=== PATIENT | male | born 1945 | race Two or more races ===

== ENCOUNTER 2020-09-21 14:08 | Outpatient (REF) | payer MEDICARE, SELFPAY ==
[2020-09-21 14:41] LABS: MANUAL DIFF FLAG NO
[2020-09-21 14:43] LABS: Basophils Percent Auto 0.5 % (0-2); Eosinophils Absolute Auto 0.1 X10*3/uL (0.0-0.4); Eosinophils Percent Auto 0.7 % (0-4); Hematocrit 38.3 % (42-52); Hemoglobin 12.9 g/dl (14.0-18.0); Imm Gran Abs Auto 0.02 X10*3/uL (0.00-0.03); Imm Gran Pct Auto 0.2 % (0.0-0.4); Lymphocytes Absolute Auto 1.5 X10*3/uL (1.2-4.9); Lymphocytes Percent Auto 18.6 % (20-40); Mean Corpuscular HGB Conc 33.7 g/dl (31.0-36.0); Mean Corpuscular Hemoglobin 27.3 pg (27.0-33.0); Monocytes Absolute Auto 0.6 X10*3/uL (0.1-1.2); Monocytes Percent Auto 6.6 % (2-11); Neutrophils Absolute Auto 6.1 X10*3/uL (2.0-8.3); Neutrophils Percent Auto 73.4 % (45-73); Platelet Count 260 X10*3/uL (160-400); Red Blood Count 4.73 X10*6/uL (4.60-5.80); Red Cell Distribution Width 15.5 % (11.0-16.0); White Blood Count 8.3 X10*3/uL (4.8-10.8)
[2020-09-21 15:18] LABS: Blood Urea Nitrogen 14 mg/dL (9-16); Estimated Glomerular Filt Rate > 60
[2020-09-21 15:21] LABS: Iron 100 mcg/dL (45-160); Percent Iron Saturation 32 % (15-50); Total Iron Binding Capacity 313 mcg/dL (228-428); Unsaturated Iron Binding 213 ug/dL
[2020-09-21 15:41] LABS: Ferritin 47 ng/mL (20-250)
[2020-09-21 15:57] LABS: Folate 13.7 ng/mL (> or = 4.0); Vitamin B12 918 pg/mL (200-900)
== END 2020-09-21 14:09 | disposition home or self-care (01) ==
LOC: HO.LAB 14:08
PROVIDERS: Visit Provider Internal Medicine
DX: D50.9 Iron deficiency anemia, unspecified (principal); E11.65 Type 2 diabetes mellitus with hyperglycemia; I10 Essential (primary) hypertension; N40.0 Benign prostatic hyperplasia without lower urinary tract symptoms; I25.10 Atherosclerotic heart disease of native coronary artery without angina pectoris; K21.9 Gastro-esophageal reflux disease without esophagitis; M25.531 Pain in right wrist
CPT/HCPCS: 36415; 82565; 82607; 82728; 82746; 83540; 84520; 85025; 86900; 86901

== ENCOUNTER 2020-09-27 14:05 | Outpatient (REF) | payer MEDICARE, SELFPAY | END 2020-09-27 14:06 | disposition home or self-care (01) | LOC: HO.LAB 14:05 | PROVIDERS: PCP Internal Medicine; Visit Provider Internal Medicine | DX: Z20.828 Contact with and (suspected) exposure to other viral communicable diseases (principal) | CPT/HCPCS: C9803; U0003 ==

== ENCOUNTER 2020-10-16 13:41 | Outpatient (REF) | payer MEDICARE, SELFPAY ==
--- NOTE | 2020-10-16 13:43 | CT_ITS ---
EXAMINATION: CT ABDOMEN AND PELVIS WITH CONTRAST CLINICAL INFORMATION: Lower abdominal pain. COMPARISON: None TECHNIQUE: Multidetector volumetric images were obtained from the superior aspect of the liver through the pubic symphysis following administration 85 mL of Omnipaque 350 intravenous contrast. Sagittal and coronal reformatted images were obtained on the technologist's workstation. Oral contrast: No This CT examination was performed using dose optimization techniques as appropriate, variously including the following: *Automated exposure control *Adjustment of mA and/or kV according to patient size (this includes techniques or standardized protocols for targeted exams where dose is matched to indication/reason for exam; i.e. extremities or head) *Use of iterative reconstruction technique DLP: 351 mGy-cm FINDINGS: LUNG BASES: The visualized lung bases are unremarkable. Heart size is normal with coronary artery calcifications. LIVER, GALLBLADDER, AND BILIARY TREE: The liver is normal in size, shape, and attenuation. No focal hepatic lesion or biliary ductal dilatation is present. The gallbladder is unremarkable with no evidence of radiopaque gallstones, gallbladder wall thickening, or obvious pericholecystic inflammatory changes. PANCREAS: Unremarkable SPLEEN: Unremarkable. There is small accessory splenule along the anterior margin. ADRENAL GLANDS: Slightly plump right adrenal gland is noted with likely nodule measuring 1.9 cm and 50 Hounsfield units. Left adrenal gland is unremarkable. KIDNEYS AND URETERS: The kidneys are normal in size, shape, and attenuation. No hydronephrosis, hydroureter, or calculi seen. No perinephric stranding. There is a 1.1 cm hypodense lesion midpole cortex right kidney. BLADDER: Unremarkable GASTROINTESTINAL TRACT: There is diffuse colonic diverticulosis most prominent in sigmoid and descending colon. Nonspecific mild mural thickening of sigmoid colon is noted but no pericolic fat stranding seen. There is no proximal obstruction. Oral contrast opacified small bowel loops are normal caliber. Appendix is normal caliber. ABDOMINAL WALL: No significant hernia is appreciated. LYMPH NODES: Normal. VASCULAR: There is mild atherosclerotic changes of abdominal aorta. No aneurysm seen. PELVIC VISCERA: There is a small TURP defect along the anterior wall of prostate gland. The prostate gland is normal size. OSSEOUS STRUCTURES: Degenerative disc changes and vacuum disc phenomena throughout lower dorsal and lumbar spine with ventral spondylosis. No lytic process seen. CT/CT abdomen pelvis w con IMPRESSION: Diffuse colonic diverticulosis with sigmoid wall thickening but no pericolic fat stranding seen. Significant degenerative disc changes, ventral spurring and vacuum disc phenomena in lumbar spine.
[2020-10-16] MEDS: iohexoL 350 MG/ML 100 ML INFUS..BTL IV (14:22)
== END 2020-10-16 13:42 | disposition home or self-care (01) ==
LOC: HO.CT 13:41
PROVIDERS: PCP Internal Medicine; Visit Provider Internal Medicine
DX: R10.30 Lower abdominal pain, unspecified (principal)
CPT/HCPCS: 74177; Q9967

== ENCOUNTER 2020-12-08 11:56 | Outpatient (REF) | payer MEDICARE, MEDICAID, SELFPAY | END 2020-12-08 11:57 | disposition home or self-care (01) | LOC: HO.LAB 11:56 | PROVIDERS: Visit Provider Internal Medicine | DX: Z20.822 Contact with and (suspected) exposure to COVID-19 (principal) | CPT/HCPCS: 36415; C9803; U0003 ==

== ENCOUNTER 2020-12-20 11:25 | Outpatient (REF) | payer MEDICARE, MEDICAID, SELFPAY ==
[2020-12-20 12:34] LABS: MANUAL DIFF FLAG NO
[2020-12-20 12:40] LABS: Basophils Absolute Auto 0.1 X10*3/uL (0.0-0.2); Basophils Percent Auto 0.8 % (0-2); Eosinophils Absolute Auto 0.2 X10*3/uL (0.0-0.4); Eosinophils Percent Auto 2.5 % (0-4); Hemoglobin 12.4 g/dl (14.0-18.0); Imm Gran Abs Auto 0.02 X10*3/uL (0.00-0.03); Imm Gran Pct Auto 0.3 % (0.0-0.4); Lymphocytes Absolute Auto 2.2 X10*3/uL (1.2-4.9); Lymphocytes Percent Auto 35.8 % (20-40); Mean Corpuscular HGB Conc 32.6 g/dl (31.0-36.0); Mean Corpuscular Hemoglobin 28.2 pg (27.0-33.0); Mean Corpuscular Volume 86.6 fL (80-98); Mean Platelet Volume 11.2 fL (9.4-12.4); Monocytes Absolute Auto 0.6 X10*3/uL (0.1-1.2); Neutrophils Absolute Auto 3.2 X10*3/uL (2.0-8.3); Neutrophils Percent Auto 51.6 % (45-73); Platelet Count 216 X10*3/uL (160-400); Red Blood Count 4.39 X10*6/uL (4.60-5.80); Red Cell Distribution Width 12.9 % (11.0-16.0); White Blood Count 6.1 X10*3/uL (4.8-10.8)
[2020-12-20 12:41] LABS: Immature Retic Fraction 4.3 % (2.3-13.4); Retic HGB Equivalent 33.5 pg (30.0-35.0); Reticulocytes Absolute 0.045 X10*6/uL (0.026-0.095)
[2020-12-20 12:50] LABS: Estimated Average Glucose 148 mg/dL; Hemoglobin A1c % 6.8 %
[2020-12-20 12:54] LABS: Glucose Urine UA NEG (NEG); Leukocyte Esterase Urine NEG (NEG); Nitrite Urine NEG (NEG); Urine Blood NEG (NEG); Urine Ketones NEG (NEG); Urine Protein NEG (NEG-TRACE)
[2020-12-20 12:56] LABS: Appearance Urine CLEAR; Color Urine YELLOW
[2020-12-20 13:10] LABS: Alanine Aminotransferase 11 U/L (0-40); Albumin Level 4.4 g/dL (3.5-5.0); Alkaline Phosphatase 60 U/L (39-117); Anion Gap 15 (12-20); Aspartate Amino Transferase 14 U/L (5-37); Bilirubin Total 1.1 mg/dL (0.0-1.0); Blood Urea Nitrogen 17 mg/dL (9-16); Calcium 9.4 mg/dL (8.4-10.2); Carbon Dioxide 27 mmol/L (22-29); Chloride 102 mmol/L (96-108); Cholesterol 148 mg/dL; Estimated Glomerular Filt Rate > 60; Glucose Fasting 163 mg/dL (60-99); HDL Cholesterol 48 mg/dL; Iron 68 mcg/dL (45-160); LDL Cholesterol Calculated 75 mg/dl; Percent Iron Saturation 19 % (15-50); Potassium 4.3 mmol/L (3.3-5.1); Sodium 140 mmol/L (135-145); Total Iron Binding Capacity 357 mcg/dL (228-428); Total Protein 7.1 g/dL (6.5-8.0); Triglycerides 125 mg/dL; Unsaturated Iron Binding 289 ug/dL
[2020-12-20 13:17] LABS: Ferritin 14 ng/mL (20-250)
[2020-12-20 13:37] LABS: Creatinine Urine 112.21 mg/dL; Microalbum/Creatinine Ratio Ur 5.3 ug/mg cr
[2020-12-20 13:55] LABS: Folate 11.5 ng/mL (> or = 4.0); Vitamin B12 662 pg/mL (200-900)
== END 2020-12-20 11:26 | disposition home or self-care (01) ==
LOC: HO.LAB 11:25
PROVIDERS: Internal Medicine; PCP Internal Medicine; Visit Provider Internal Medicine
DX: E11.65 Type 2 diabetes mellitus with hyperglycemia (principal); I25.10 Atherosclerotic heart disease of native coronary artery without angina pectoris; K21.9 Gastro-esophageal reflux disease without esophagitis; E78.00 Pure hypercholesterolemia, unspecified; D64.9 Anemia, unspecified
CPT/HCPCS: 36415; 80053; 80061; 81003; 82043; 82607; 82728; 82746; 83036; 83540; 85025; 85045

== ENCOUNTER 2021-02-06 11:13 | Outpatient (REF) | payer MEDICARE, MEDICAID, SELFPAY | END 2021-02-06 11:14 | disposition home or self-care (01) | LOC: HO.LAB 11:13 | PROVIDERS: Visit Provider Internal Medicine | DX: Z20.822 Contact with and (suspected) exposure to COVID-19 (principal) | CPT/HCPCS: 36415; C9803; U0003; U0005 ==

== ENCOUNTER 2021-03-09 14:57 | Outpatient (REF) | payer MEDICARE, MEDICAID, SELFPAY | END 2021-03-09 14:58 | disposition home or self-care (01) | LOC: HO.LAB 14:57 | PROVIDERS: Visit Provider Internal Medicine | DX: Z20.822 Contact with and (suspected) exposure to COVID-19 (principal) | CPT/HCPCS: C9803; U0003; U0005 ==

== ENCOUNTER 2021-03-19 08:55 | Outpatient (REF) | payer MEDICARE, MEDICAID, SELFPAY ==
[2021-03-19 10:23] LABS: MANUAL DIFF FLAG NO
[2021-03-19 10:36] LABS: Basophils Percent Auto 0.5 % (0-2); Eosinophils Absolute Auto 0.2 X10*3/uL (0.0-0.4); Eosinophils Percent Auto 2.7 % (0-4); Hematocrit 39.4 % (42-52); Hemoglobin 13.2 g/dl (14.0-18.0); Imm Gran Abs Auto 0.03 X10*3/uL (0.00-0.03); Imm Gran Pct Auto 0.4 % (0.0-0.4); Immature Retic Fraction 7.5 % (2.3-13.4); Lymphocytes Absolute Auto 2.6 X10*3/uL (1.2-4.9); Mean Corpuscular HGB Conc 33.5 g/dl (31.0-36.0); Mean Corpuscular Hemoglobin 28.6 pg (27.0-33.0); Mean Corpuscular Volume 85.3 fL (80-98); Mean Platelet Volume 11.5 fL (9.4-12.4); Monocytes Absolute Auto 0.6 X10*3/uL (0.1-1.2); Monocytes Percent Auto 7.4 % (2-11); Neutrophils Absolute Auto 4.4 X10*3/uL (2.0-8.3); Platelet Count 238 X10*3/uL (160-400); Red Blood Count 4.62 X10*6/uL (4.60-5.80); Red Cell Distribution Width 13.1 % (11.0-16.0); Reticulocyte Percent 1.2 % (0.5-1.8); Reticulocytes Absolute 0.053 X10*6/uL (0.026-0.095); White Blood Count 7.9 X10*3/uL (4.8-10.8)
[2021-03-19 11:01] LABS: Alanine Aminotransferase 16 U/L (0-40); Albumin Level 4.3 g/dL (3.5-5.0); Alkaline Phosphatase 66 U/L (39-117); Anion Gap 15 (12-20); Aspartate Amino Transferase 15 U/L (5-37); Bilirubin Total 0.8 mg/dL (0.0-1.0); Blood Urea Nitrogen 20 mg/dL (9-16); Calcium 9.8 mg/dL (8.4-10.2); Carbon Dioxide 30 mmol/L (22-29); Chloride 99 mmol/L (96-108); Estimated Glomerular Filt Rate > 60; Glucose Random 196 mg/dL (60-115); Iron 71 mcg/dL (45-160); Percent Iron Saturation 21 % (15-50); Potassium 4.5 mmol/L (3.3-5.1); Sodium 139 mmol/L (135-145); Total Iron Binding Capacity 334 mcg/dL (228-428); Total Protein 6.9 g/dL (6.5-8.0); Unsaturated Iron Binding 263 ug/dL
[2021-03-19 11:22] LABS: Ferritin 22 ng/mL (20-250)
[2021-03-19 11:29] LABS: Folate 12.5 ng/mL (> or = 4.0); Vitamin B12 478 pg/mL (200-900)
[2021-03-23 17:31] LABS: Testosterone, Total 294 ng/dL (250-1100)
== END 2021-03-19 08:56 | disposition home or self-care (01) ==
LOC: HO.LAB 08:55
PROVIDERS: PCP Internal Medicine; Visit Provider Internal Medicine
DX: D64.9 Anemia, unspecified (principal); E11.65 Type 2 diabetes mellitus with hyperglycemia
CPT/HCPCS: 36415; 80053; 82607; 82728; 82746; 83540; 84403; 85025; 85045

== ENCOUNTER → 2021-04-04 12:52 | Outpatient (BNV) | payer MEDICARE, OTHER, MEDICAID, SELFPAY | PROVIDERS: PCP Internal Medicine; Referring Provider Internal Medicine; Visit Provider Internal Medicine | DX: D50.9 Iron deficiency anemia, unspecified (principal) | CPT/HCPCS: 99203; 99213 ==

== ENCOUNTER 2021-07-31 15:06 | Outpatient (REF) | payer MEDICARE, MEDICAID, SELFPAY | END 2021-07-31 15:07 | disposition home or self-care (01) | LOC: HO.LAB 15:06 | PROVIDERS: PCP Internal Medicine; Visit Provider Internal Medicine | DX: Z20.822 Contact with and (suspected) exposure to COVID-19 (principal) | CPT/HCPCS: C9803; U0003; U0005 ==

== ENCOUNTER 2021-09-25 08:48 | Outpatient (REF) | payer MEDICARE, MEDICAID, SELFPAY ==
--- NOTE | ~2021-09-25 | XR_ITS ---
EXAMINATION: XR SHOULDER, LEFT CLINICAL INFORMATION: Left shoulder pain since surgery 4 years ago. COMPARISON: 09/20/2016 TECHNIQUE: AP external rotation, Grashey, scapular Y, and axillary views of the left shoulder. FINDINGS: Alignment is normal at the acromioclavicular and glenohumeral joints. There appear to be small subchondral cysts of the mildly degenerated acromioclavicular joint. Small foci of calcium deposition are noted along the superior ligament of the AC joint. No hook-shaped acromion or acromiohumeral distance narrowing. No calcium deposition within rotator cuff tendons. The glenohumeral joint space is preserved. No fracture or subluxation. Small osteophytes at the inferior aspect of the glenohumeral joint. There are enthesophytes at the surfaces of the greater and lesser tuberosities. The humeral head is well positioned over the intact glenoid. The visualized left upper lung is normal. 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 * No evidence of calcific tendinopathy. * No acute abnormality compared 09/20/2016.
[2021-09-25 09:05] LABS: MANUAL DIFF FLAG NO
[2021-09-25 09:51] LABS: Basophils Percent Auto 0.4 % (0-2); Eosinophils Absolute Auto 0.2 X10*3/uL (0.0-0.4); Eosinophils Percent Auto 3.3 % (0-4); Hematocrit 37.3 % (42.0-52.0); Hemoglobin 12.2 g/dl (14.0-18.0); Imm Gran Abs Auto 0.02 X10*3/uL (0.00-0.03); Imm Gran Pct Auto 0.3 % (0.0-0.4); Lymphocytes Absolute Auto 1.7 X10*3/uL (1.2-4.9); Lymphocytes Percent Auto 25.3 % (20-40); Mean Corpuscular HGB Conc 32.7 g/dl (31.0-36.0); Mean Corpuscular Hemoglobin 28.6 pg (27.0-33.0); Mean Corpuscular Volume 87.4 fL (80.0-98.0); Mean Platelet Volume 11.2 fL (9.4-12.4); Monocytes Absolute Auto 0.5 X10*3/uL (0.1-1.2); Monocytes Percent Auto 8.1 % (2-11); Neutrophils Absolute Auto 4.2 x10*3/uL (2.0-8.3); Neutrophils Percent Auto 62.6 % (45-73); Platelet Count 207 X10*3/uL (160-400); Red Blood Count 4.27 X10*6/uL (4.60-5.80); Red Cell Distribution Width 12.7 % (11.0-16.0); White Blood Count 6.7 X10*3/uL (4.8-10.8)
[2021-09-25 10:05] LABS: B Type Natriuretic Peptide 54 pg/mL (<100)
[2021-09-25 10:14] LABS: Alanine Aminotransferase 18 U/L (0-40); Albumin Level 4.3 g/dL (3.5-5.0); Alkaline Phosphatase 60 U/L (39-117); Anion Gap 10 (12-20); Aspartate Amino Transferase 16 U/L (5-37); Blood Urea Nitrogen 12 mg/dL (9-16); Calcium 9.2 mg/dL (8.4-10.2); Carbon Dioxide 33 mmol/L (22-29); Chloride 104 mmol/L (96-108); Cholesterol 141 mg/dL; Estimated Glomerular Filt Rate > 60; Glucose Random 191 mg/dL (60-115); HDL Cholesterol 44 mg/dL; LDL Cholesterol Calculated 70 mg/dl; Potassium 4.4 mmol/L (3.3-5.1); Sodium 143 mmol/L (135-145); Total Protein 6.8 g/dL (6.5-8.0); Triglycerides 138 mg/dL
[2021-09-25 10:25] LABS: Ferritin 60 ng/mL (20-250); Free T4 (Free Thyroxine) 1.08 ng/dL (0.71-1.85); Thyroid Stimulating Hormone 0.45 uIU/mL (0.32-4.0)
[2021-09-25 10:35] LABS: Vitamin B12 527 pg/mL (200-900)
[2021-09-25 11:05] LABS: Creatinine Urine 100.44 mg/dL; Microalbum/Creatinine Ratio Ur 6.9 ug/mg cr
== END 2021-09-25 08:49 | disposition home or self-care (01) ==
LOC: HO.LAB 08:48
PROVIDERS: PCP Internal Medicine; Visit Provider Internal Medicine
DX: D64.9 Anemia, unspecified (principal); I25.10 Atherosclerotic heart disease of native coronary artery without angina pectoris; E11.65 Type 2 diabetes mellitus with hyperglycemia; E78.00 Pure hypercholesterolemia, unspecified; M25.512 Pain in left shoulder
CPT/HCPCS: 36415; 73030; 80053; 80061; 82043; 82607; 82728; 82746; 83880; 84439; 84443; 85025

== ENCOUNTER 2021-10-24 11:30 | Outpatient (REF) | payer MEDICARE, MEDICAID, SELFPAY | END 2021-10-24 11:31 | disposition home or self-care (01) | LOC: HO.LAB 11:30 | PROVIDERS: Visit Provider Internal Medicine | DX: Z20.822 Contact with and (suspected) exposure to COVID-19 (principal) | CPT/HCPCS: C9803; U0003; U0005 ==

== ENCOUNTER 2021-12-25 12:56 | Outpatient (REF) | payer MEDICARE, MEDICAID, SELFPAY ==
--- NOTE | ~2021-12-25 | CT_ITS ---
EXAMINATION: CT HEAD WITHOUT CONTRAST CLINICAL INFORMATION: Headache. COMPARISON: None TECHNIQUE: Contiguous axial imaging was performed from the skull base to vertex without intravenous administration of contrast. This CT examination was performed using dose optimization techniques as appropriate, variously including the following: *Automated exposure control *Adjustment of mA and/or kV according to patient size (this includes techniques or standardized protocols for targeted exams where dose is matched to indication/reason for exam; i.e. extremities or head) *Use of iterative reconstruction technique DLP: 982 mGy-cm FINDINGS: There is no evidence of acute intracranial hemorrhage or territorial infarction. No abnormal mass effect or midline shift is seen. Timmons to white matter differentiation is well preserved. No extra-axial fluid collections are identified. The ventricles are enlarged and slightly asymmetrical. There is diffuse periventricular hypodensity in both cerebral hemispheres without mass effect. The osseous structures and soft tissues are normal. The mastoid air cells and visualized portions of the paranasal sinuses are well aerated. CT/CT head/brain wo con IMPRESSION: No acute intracranial process seen.
--- NOTE | ~2021-12-25 | XR_ITS ---
EXAMINATION: XR RIBS, LEFT CLINICAL INFORMATION: Chest pain COMPARISON: 02/04/2020 TECHNIQUE: 3 views of the left ribs were obtained. Frontal view of the chest. FINDINGS: Lungs are clear. No consolidation, pneumothorax, or pleural effusion. The cardiomediastinal silhouette and pulmonary vasculature are normal. Median sternotomy wires appear intact. Osseous structures are unremarkable. Ribs are intact. No fractures are identified. XR/XR ribs LT min 3V w CXR1V IMPRESSION: Clear lungs. No focal rib abnormality identified.
== END 2021-12-25 12:57 | disposition home or self-care (01) ==
LOC: HO.CT 12:56
PROVIDERS: PCP Internal Medicine; Visit Provider Internal Medicine
DX: R51.9 Headache, unspecified (principal); R07.9 Chest pain, unspecified
CPT/HCPCS: 70450; 71101

== ENCOUNTER 2022-02-12 10:10 | Emergency (ER) | payer MEDICARE, MEDICAID, SELFPAY ==
--- NOTE | ~2022-02-12 | XR_ITS ---
EXAMINATION: XR CHEST CLINICAL INFORMATION: Chest pain COMPARISON: None TECHNIQUE: Frontal view of the chest was obtained. FINDINGS: The lungs are well-expanded and clear of acute process. The heart size and pulmonary vascularity is normal. There are median sternotomy sutures and mediastinal lexx from previous CABG. There are median sternotomy sutures from previous intervention. No gross bony abnormality seen. There is mild levoscoliosis dorsolumbar junction. XR/XR chest 1V IMPRESSION: Unremarkable chest examination.
[2022-02-12 11:04] VITALS: BP 135/77; PULSE 73; RESP 18; TEMP 36.7; O2SAT 96; BMI 25.1
--- NOTE | 2022-02-12 11:08 | ECG_ITS ---
Test Reason : chest pain Blood Pressure : / mmHG Vent. Rate : 071 BPM Atrial Rate : 071 BPM P-R Int : 162 ms QRS Dur : 082 ms QT Int : 394 ms P-R-T Axes : 017 -28 -36 degrees QTc Int : 428 ms Normal sinus rhythm Minimal voltage criteria for LVH, may be normal variant ( R in aVL ) Nonspecific ST and T wave abnormality Abnormal ECG When compared with ECG of 04-FEB-2020 11:37, Nonspecific T wave abnormality, worse in Anterolateral leads Referred By: Iwona Davies Electronically Signed By:LILIANA CABRERA
[2022-02-12 14:16] LABS: Hematocrit 37.1 % (42.0-52.0); Hemoglobin 12.4 g/dl (14.0-18.0); Mean Corpuscular HGB Conc 33.4 g/dl (31.0-36.0); Mean Corpuscular Hemoglobin 28.6 pg (27.0-33.0); Mean Corpuscular Volume 85.5 fL (80.0-98.0); Mean Platelet Volume 10.1 fL (9.4-12.4); Platelet Count 215 X10*3/uL (160-400); Red Blood Count 4.34 X10*6/uL (4.60-5.80); Red Cell Distribution Width 12.7 % (11.0-16.0); White Blood Count 7.5 X10*3/uL (4.8-10.8)
--- NOTE | 2022-02-12 14:18 | ED.CHESTPAIN ---
HPI - Chest Pain General Chief Complaint: Chest Pain Stated Complaint: chest pains Time Seen by Provider: 02/12/22 14:16 Source: patient and old records reviewed Mode of arrival: ambulatory Limitations: no limitations History of Present Illness MD complaint: chest pain Pertinent past history: coronary artery disease and CABG Onset (ago): hour(s) (> 12 hours) Timing of current episode: constant Prior episodes: Yes Onset: during rest and other (also very stressed out was supposed to fly to [place] today for a ) Pain location: substernal and left chest Pain radiation: left arm Severity: mild Quality: other (pressure) Relieving factors: nothing Exacerbating factors: stress Context: other (does not feel like prior cardiac events with that he was short of breath - he has no symptoms with this.) Treatment prior to arrival: none Related Data Home Medications Medication Instructions Recorded Confirmed aspirin 81 mg tablet,delayed 81 mg PO DAILY 09/13/20 01/08/22 release cholecalciferol (vitamin D3) 25 25 mcg PO DAILY 09/13/20 01/08/22 mcg (1,000 unit) tablet magnesium oxide 400 mg PO DAILY 09/13/20 01/08/22 vitamin E (dl, acetate) 45 mg (100 100 unit PO DAILY 09/13/20 01/08/22 unit) capsule blood sugar diagnostic #10 ea 01/08/21 01/08/22 Previous Rx's Medication Instructions Recorded blood sugar diagnostic (OneTouch #4 box 01/08/21 Ultra Blue Test Strip) furosemide 40 mg tablet 40 mg PO BID #180 tab 03/15/21 ferrous sulfate 325 mg (65 mg 325 mg PO BID 90 Days #180 tab 06/19/21 iron) tablet ascorbic acid (vitamin C) 500 mg 500 mg PO BID 90 Days #180 tab 07/19/21 tablet (Vitamin C) glipizide 5 mg tablet, extended 5 mg PO DAILY #90 tab 09/24/21 release 24 hr omeprazole 20 mg capsule,delayed 20 mg PO QAM #90 cap 09/24/21 release atorvastatin 40 mg tablet 40 mg PO DAILY #90 tab 10/01/21 metformin 500 mg tablet 1,000 mg PO BID 90 Days #360 tab 10/01/21 dulaglutide 1.5 mg/0.5 mL 1.5 mg (0.5 mL) SUBCUT QWEEK #2 ml 10/18/21 subcutaneous pen injector empagliflozin 10 mg tablet 10 mg PO DAILY 30 Days #30 tab 12/18/21 (Jardiance) metoprolol tartrate 25 mg tablet 25 mg PO TID #270 tab 01/14/22 finasteride 5 mg tablet 5 mg PO DAILY #90 tab 01/18/22 Allergies Allergy/AdvReac Type Severity Reaction Status Date / Time Penicillins Allergy Mild RASH Verified 01/08/22 11:02 lisinopril Allergy Unknown Unknown Verified 01/08/22 11:02 linagliptin [Tradjenta] AdvReac Mild diarrhea Verified 01/08/22 11:02 Review of Systems Review of Systems: Constitutional : No Weight loss, No Fever, No Chills ENT/Mouth : No sore throat, No Rhinorrhea Eyes: No Eye Pain, No Swelling Cardiovascular : pos Chest Pain, no SOB, no Dyspnea on Exertion, No Orthopnea, No Edema, No Palpitations Respiratory : No Cough, No Sputum Gastrointestinal : no Nausea, No Vomiting, No Diarrhea, No abdominal Pain, No Hematochezia, No Melena Genitourinary : No Dysuria, No Urinary Frequency Musculoskeletal : No joint pain, No Myalgias, No Joint Swelling Skin : No Skin Lesions, No rash Neuro : No Weakness, No Numbness, No Dizziness, No Headache Psych : pos Anxiety/Panic, No Depression Heme/Lymph: No Bruising, No Lymphadenopathy Endocrine : No Polyuria, No Polydipsia All other systems reviewed and are negative [facility] Past Medical History Attestation statement: The following information was validated with the patient. Medical History (Updated 02/12/22 @ 14:45 by Iwona Davies DO) Adrenal adenoma BPH (benign prostatic hyperplasia) Coronary artery disease Fatty liver GERD (gastroesophageal reflux disease) Hypercholesterolemia Overweight (BMI 25.0-29.9) Renal calculi Type 2 diabetes mellitus with hyperglycemia Surgical History (Updated 02/12/22 @ 14:20 by Iwona Davies DO) History of arthroscopy of left shoulder History of nephrolithiasis History of open heart surgery History of prostate surgery History of tonsillectomy 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) Family History Family History Father Diabetes Hypertension CVD (cardiovascular disease) Mother Diabetes Social History Social History Household Members: Spouse Housing: Condominium Are you a primary home care physical therapist to a significant other at home: No Do you presently have visiting nurse or other home services: No Alcohol intake: former Patient Tobacco Use Status: Former Tobacco user Tobacco use type: Cigarette Cigarette Packs Per Day: 1.5 e-Cigarette/Vaping Use: Never Used Second Hand Smoke Exposure: No Advance Directives: No Advance Directives Information Provided: Yes service: No Current occupational status: retired Physical Exam Vital Signs: Vital Signs: Last Vital Signs Temp 98.0 F 02/12/22 16:04 Pulse 83 02/12/22 16:04 Resp 20 02/12/22 16:04 BP 127/57 L 02/12/22 16:04 Pulse Ox 94 02/12/22 16:04 BMI result Body Mass Index 25.1 Appearance: Alert. Oriented X3. No acute distress. Eyes: Pupils equal, round and reactive to light. ENT: Pharynx normal. Neck: Normal inspection. Neck supple. CVS: Normal heart rate and rhythm. Pulses normal. Respiratory: No respiratory distress. Breath sounds normal. Abdomen: Soft and non-tender. Skin: Skin warm and dry. Normal skin color. Normal skin turgor. Extremities: No lower extremity edema. No calf ttp Neuro: Oriented X 3. No motor deficit. No sensory deficit. Course Course Course Narrative: signed out to Dr. Gustafson pending repeat troponin MDM - Chest Pain MDM Narrative Medical decision making narrative: 76 yo male with hx of CAD s/p 4V CABG 2019 has done really well since procedure, HLD, GERD, HTN, DM here with chest pressure that is mild since yesterday. He is under stress due to loss of family member and he is supposed to fly today for the . He admits to being very stressed out about this. He has had mild chest pressure since yesterday. He has no shortness of breath, dizziness, nausea. At this time will obtain EKG, troponin x2, CXR, COVID swab. Given the fact that this is different to his prior CAD events and his EKG is unchanged if his 2 troponins are flat unlikely to be ACS. Lab Data Result diagrams: 02/12/22 14:11 02/12/22 14:11 Labs: Lab Results 02/12/22 02/12/22 02/12/22 Range/Units 14:11 14:11 14:11 WBC 7.5 (4.8-10.8) X10*3/uL RBC 4.34 L (4.60-5.80) X10*6/uL Hgb 12.4 L (14.0-18.0) g/dl Hct 37.1 L (42.0-52.0) % MCV 85.5 (80.0-98.0) fL MCH 28.6 (27.0-33.0) pg MCHC 33.4 (31.0-36.0) g/dl RDW 12.7 (11.0-16.0) % Plt Count 215 (160-400) X10*3/uL MPV 10.1 (9.4-12.4) fL Absolute Nucleated RBC 0.000 (0.0-0.012) X10*3/uL Nucleated RBC % (auto) 0.0 (0.0-0.2) /100WBC Sodium 144 (135-145) mmol/L Potassium 4.0 (3.3-5.1) mmol/L Chloride 102 (96-108) mmol/L Carbon Dioxide 33 H (22-29) mmol/L Anion Gap 13 (12-20) BUN 16 (9-16) mg/dL Creatinine 1.15 (0.5-1.4) mg/dL Estim Creat Clear Calc 52.9 Estimated GFR > 60 Random Glucose 127 H (60-115) mg/dL Calcium 9.9 D (8.4-10.2) mg/dL Troponin I High Sens 3.5 (<3.5-35.0) ng/L COVID-19 (KRYSTAL) (Negative) COVID-19 Clin Com 02/12/22 Range/Units 15:11 WBC (4.8-10.8) X10*3/uL RBC (4.60-5.80) X10*6/uL Hgb (14.0-18.0) g/dl Hct (42.0-52.0) % MCV (80.0-98.0) fL MCH (27.0-33.0) pg MCHC (31.0-36.0) g/dl RDW (11.0-16.0) % Plt Count (160-400) X10*3/uL MPV (9.4-12.4) fL Absolute Nucleated RBC (0.0-0.012) X10*3/uL Nucleated RBC % (auto) (0.0-0.2) /100WBC Sodium (135-145) mmol/L Potassium (3.3-5.1) mmol/L Chloride (96-108) mmol/L Carbon Dioxide (22-29) mmol/L Anion Gap (12-20) BUN (9-16) mg/dL Creatinine (0.5-1.4) mg/dL Estim Creat Clear Calc Estimated GFR Random Glucose (60-115) mg/dL Calcium (8.4-10.2) mg/dL Troponin I High Sens (<3.5-35.0) ng/L COVID-19 (KRYSTAL) Negative (Negative) COVID-19 Clin Com See Note ECG Data ECG #1: Attestation: I personally reviewed and interpreted this ECG as follows: ECG interpretation date: 02/12/22 ECG interpretation time: 14:33 Interpretation: Rate: 71 Rhythm: NSR Custer: left Normal P waves. Normal ANNMARIE. Normal QRS complex. ST T wave : nonspecific in V3-V4, no DEISY qTC: normal prior studies: no acute ischemia no sig change from 09/06 The study has been interpreted contemporaneously by me. . ECG #2: Attestation: I personally reviewed and interpreted this ECG as follows: ECG interpretation date: 02/12/22 ECG interpretation time: 14:35 Interpretation: Rate: 71 Rhythm: NSR Custer: left Normal P waves. Normal ANNMARIE. Normal QRS complex. ST T wave : inverted/scooping segments in V3-V4 no DEISY appears similar to EKG in office 08/2021 qTC: normal prior studies: no acute ischemia The study has been interpreted contemporaneously by me. . Discharge Plan Discharge Clinical Impression: Chest pain Patient Disposition: Still a Patient Instructions: Chest Pain (ED) Additional Instructions: return to ED for any worsening symptoms or concerns please follow up with your Pediatric Assistant Prescriptions: No Action (DME) blood sugar diagnostic Strip See Rx Instructions .ROUTE .MEDSUPPLY Qty: 10 0RF Rx Instructions: As directed (DME) OneTouch Ultra Blue Test Strip Strip See Rx Instructions .ROUTE .MEDSUPPLY Qty: 4 3RF Rx Instructions: As directed check blood sugar 4 times a day ascorbic acid (vitamin C) [Vitamin C] 500 mg tablet 500 mg PO BID 90 Days Qty: 180 3RF atorvastatin 40 mg tablet 40 mg PO DAILY Qty: 90 2RF metformin 500 mg tablet 1,000 mg PO BID 90 Days Qty: 360 2RF dulaglutide 1.5 mg/0.5 mL pen injector 1.5 mg subcut QWEEK Qty: 2 3RF metoprolol tartrate 25 mg tablet 25 mg PO TID Qty: 270 3RF finasteride 5 mg tablet 5 mg PO DAILY Qty: 90 2RF cholecalciferol (vitamin D3) 25 mcg (1,000 unit) tablet 25 mcg PO DAILY 0RF aspirin 81 mg tablet,delayed release (DR/EC) 81 mg PO DAILY 0RF magnesium oxide 400 mg magnesium tablet 400 mg PO DAILY 0RF vitamin E (dl, acetate) 100 unit capsule 100 unit PO DAILY 0RF omeprazole 20 mg capsule,delayed release(DR/EC) 20 mg PO QAM Qty: 90 2RF glipizide 5 mg tablet extended release 24hr 5 mg PO DAILY Qty: 90 1RF furosemide 40 mg tablet 40 mg PO BID Qty: 180 2RF ferrous sulfate 325 mg (65 mg iron) tablet 325 mg PO BID 90 Days Qty: 180 2RF Jardiance 10 mg tablet 10 mg PO DAILY 30 Days Qty: 30 3RF
--- NOTE | 2022-02-12 14:22 | ECG_ITS ---
Test Reason : CHEST PAIN Blood Pressure : / mmHG Vent. Rate : 071 BPM Atrial Rate : 071 BPM P-R Int : 176 ms QRS Dur : 086 ms QT Int : 404 ms P-R-T Axes : 006 -31 -29 degrees QTc Int : 439 ms Normal sinus rhythm Left axis deviation Minimal voltage criteria for LVH, may be normal variant ( R in aVL ) Cannot rule out Anterior infarct , age undetermined Abnormal ECG When compared with ECG of 04-FEB-2020 11:37, Nonspecific T wave abnormality, worse in Inferior leads Nonspecific T wave abnormality now evident in Anterior leads Referred By: Iwona Davies Electronically Signed By:LILIANA CABRERA
[2022-02-12 14:35] LABS: Anion Gap 13 (12-20); Blood Urea Nitrogen 16 mg/dL (9-16); Calcium 9.9 mg/dL (8.4-10.2); Carbon Dioxide 33 mmol/L (22-29); Chloride 102 mmol/L (96-108); Creatinine Clr Calc Pharmacy 52.9; Estimated Glomerular Filt Rate > 60; Glucose Random 127 mg/dL (60-115); Sodium 144 mmol/L (135-145)
[2022-02-12 14:41] LABS: Troponin-I High Sensitivity 3.5 ng/L (<3.5-35.0)
[2022-02-12 15:34] LABS: COVID-19 Test Negative (Negative); IDNOW Serial# 55D5AD1C
[2022-02-12 16:04] VITALS: BP 127/57; PULSE 83; RESP 20; TEMP 36.7; O2SAT 94
[2022-02-12 16:44] LABS: Troponin-I High Sensitivity < 3.5 ng/L (<3.5-35.0)
[2022-02-12] MEDS: LORazepam 0.5 MG TABLET PO (18:28)
== END 2022-02-12 18:48 | disposition home or self-care (01) ==
PROVIDERS: Emergency Provider Emergency Medicine; PCP Internal Medicine
DX: R07.9 Chest pain, unspecified (principal); I25.10 Atherosclerotic heart disease of native coronary artery without angina pectoris; F17.210 Nicotine dependence, cigarettes, uncomplicated; Z20.822 Contact with and (suspected) exposure to COVID-19; Z79.82 Long term (current) use of aspirin; Z71.6 Tobacco abuse counseling; Z79.899 Other long term (current) drug therapy
CPT/HCPCS: 36415; 71045; 80048; 84484; 85027; 87635; 93005; 99283; 99284

== ENCOUNTER 2022-02-28 10:52 | Outpatient (REF) | payer MEDICARE, MEDICAID, SELFPAY ==
--- NOTE | ~2022-02-28 | XR_ITS ---
EXAMINATION: XR CHEST CLINICAL INFORMATION: ASCVD. Benign essential hypertension. COMPARISON: Chest radiographs 02/12/2022, 12/25/2021 TECHNIQUE: 2 views of the chest were obtained. FINDINGS: There is been prior median sternotomy with mediastinal clips and sternotomy wires. The heart is normal in size. The vascularity is normal. There is no airspace consolidation or groundglass opacity or effusion. The costophrenic sulci are clear. There is no hyperinflation. The hilar and mediastinal contours are normal. Bony structures show no acute abnormality. Again, there is curvature thoracic and lumbar spine and multilevel degenerative changes spine. XR/XR chest 2V IMPRESSION: Unremarkable examination.
== END 2022-02-28 10:53 | disposition home or self-care (01) ==
LOC: HO.XRAY 10:52
PROVIDERS: PCP Internal Medicine; Visit Provider Nurse Practitioner Family
DX: R07.89 Other chest pain (principal); I25.10 Atherosclerotic heart disease of native coronary artery without angina pectoris; I10 Essential (primary) hypertension
CPT/HCPCS: 71046

== ENCOUNTER 2022-04-19 10:55 | Outpatient (RCR) | payer MEDICARE, MEDICAID, SELFPAY ==
--- NOTE | 2022-04-19 11:50 | MHC.PT.EP ---
[facility] [place] Office [place] Office [place] Office [address] Amanda Dominique [address] [phone] F: [phone] F: [phone] F: [phone] F: [phone] Physical Therapy Plan of Care Date of Evaluation: Date of Surgery: N/A Diagnosis: sciatica (RC) Assessment: pt presents to physical therapy with pain, decreased range of motion, decreased strength, impaired functional mobility, impaired postural awareness, and gait deviations. pt is a fair candidate for skilled PT due to age, potential remediation of impairments, typical disease/condition progression and prognosis, comorbidities, and motivation. pt would benefit from tailored strengthening and stretching exercise program, functional training, gait training, postural re-training, neuromuscular re-education, modalities as needed for pain, equipment safety demonstration. Frequency and Duration: The patient will be seen 2x/wk for 4 wks Short Term Goals: pt will be I w/ HEP to promote self-management of condition. pt will demo proper sitting posture w/ lumbar roll to promote neutral spine w/ seated ADLs. Hand Edger Goals: pt will report a statistically significant improvement in self-reported outcome measure, Rakesh, to promote return to PLOF. pt will improve B hip flexion and ABD strength by 1 MMT grade to promote ease in community ambulation. Treatment Plan: Modalities to reduce pain, spasms and effusion. Manual therapy to restore motion and function. Therapeutic exercise to improve strength and flexibility. Neuromuscular re-education for posture and balance. Therapeutic activities to return to functional activities of daily living. Electronically signed by: Leatha Harris PT, DPT Please sign and return to therapist. Thank you for your referral.
--- NOTE | 2022-04-30 13:38 | MHC.PT.DC ---
[facility] [place] Office [place] Office [place] Office [address] Amanda Dominique [address] [phone] F: [phone] F: [phone] F: [phone] F: [phone] Physical Therapy Discharge Report Diagnosis: sciatica (RC) Date of Surgery: N/A Date of Evaluation: 04/19/22 Date of Discharge: 04/30/22 Treatments to Date: 1 Cancellations to Date: 0 No Shows to Date: 2 Discharge Status: Visit Non-compliance Discharge Summary: The patient only scheduled 2 visits after his initial evaluation and no showed both of them. He is being discharged per [facility] attendance policy. Electronically signed by: Leatha Harris PT, DPT Please sign and return to therapist. Thank you for your referral.
== END 2022-04-30 13:38 | disposition home or self-care (01) ==
LOC: HO.PT 10:55
PROVIDERS: PCP Internal Medicine; Visit Provider Internal Medicine
DX: M54.32 Sciatica, left side (principal)
CPT/HCPCS: 97110; 97162

== ENCOUNTER 2022-05-14 10:14 | Outpatient (REF) | payer MEDICARE, MEDICAID, SELFPAY ==
[2022-05-14 10:33] LABS: MANUAL DIFF FLAG NO
[2022-05-14 11:05] LABS: Basophils Percent Auto 0.3 % (0-2); Eosinophils Absolute Auto 0.2 X10*3/uL (0.0-0.4); Eosinophils Percent Auto 1.8 % (0-4); Hematocrit 36.8 % (42.0-52.0); Hemoglobin 12.5 g/dl (14.0-18.0); Imm Gran Abs Auto 0.04 X10*3/uL (0.00-0.03); Imm Gran Pct Auto 0.4 % (0.0-0.4); Immature Retic Fraction 14.5 % (2.3-13.4); Lymphocytes Percent Auto 21.1 % (20-40); Mean Corpuscular Hemoglobin 28.6 pg (27.0-33.0); Mean Corpuscular Volume 84.2 fL (80.0-98.0); Mean Platelet Volume 10.6 fL (9.4-12.4); Monocytes Absolute Auto 0.7 X10*3/uL (0.1-1.2); Monocytes Percent Auto 7.1 % (2-11); Neutrophils Absolute Auto 6.7 x10*3/uL (2.0-8.3); Neutrophils Percent Auto 69.3 % (45-73); Platelet Count 190 X10*3/uL (160-400); Red Blood Count 4.37 X10*6/uL (4.60-5.80); Red Cell Distribution Width 12.6 % (11.0-16.0); Retic HGB Equivalent 31.1 pg (30.0-35.0); Reticulocytes Absolute 0.045 X10*6/uL (0.026-0.095); White Blood Count 9.6 X10*3/uL (4.8-10.8)
[2022-05-14 11:49] LABS: Iron 41 mcg/dL (45-160); Percent Iron Saturation 14 % (15-50); Total Iron Binding Capacity 301 mcg/dL (228-428); Unsaturated Iron Binding 260 ug/dL
[2022-05-14 12:10] LABS: Folate 17.8 ng/mL (> or = 4.0); Vitamin B12 674 pg/mL (200-900)
== END 2022-05-14 10:15 | disposition home or self-care (01) ==
LOC: HO.LAB 10:14
PROVIDERS: PCP Internal Medicine; Visit Provider Internal Medicine
DX: I25.10 Atherosclerotic heart disease of native coronary artery without angina pectoris (principal); D64.9 Anemia, unspecified
CPT/HCPCS: 36415; 82607; 82746; 83540; 85025; 85045

== ENCOUNTER 2022-06-10 13:42 | Outpatient (REF) | payer MEDICARE, MEDICAID, SELFPAY | END 2022-06-10 13:43 | disposition home or self-care (01) | LOC: HO.MDS 13:42 | PROVIDERS: Visit Provider Internal Medicine | DX: D50.9 Iron deficiency anemia, unspecified (principal) | CPT/HCPCS: 96365; J1756 ==

== ENCOUNTER 2022-06-20 08:57 | Outpatient (REF) | payer MEDICARE, MEDICAID, SELFPAY | END 2022-06-20 08:58 | disposition home or self-care (01) | LOC: HO.MDS 08:57 | PROVIDERS: PCP Internal Medicine; Visit Provider Internal Medicine | DX: D50.9 Iron deficiency anemia, unspecified (principal) | CPT/HCPCS: 96365; J1756 ==

== ENCOUNTER 2022-06-27 10:10 | Outpatient (REF) | payer MEDICARE, MEDICAID, SELFPAY | END 2022-06-27 10:11 | disposition home or self-care (01) | LOC: HO.MDS 10:10 | PROVIDERS: Visit Provider Internal Medicine | DX: D50.9 Iron deficiency anemia, unspecified (principal) | CPT/HCPCS: 96365; J1756 ==

== ENCOUNTER 2022-07-12 09:39 | Outpatient (REF) | payer MEDICARE, MEDICAID, SELFPAY ==
[2022-07-12 10:04] LABS: MANUAL DIFF FLAG NO
[2022-07-12 10:49] LABS: Basophils Absolute Auto 0.1 X10*3/uL (0.0-0.2); Basophils Percent Auto 0.9 % (0-2); Eosinophils Absolute Auto 0.2 X10*3/uL (0.0-0.4); Eosinophils Percent Auto 2.5 % (0-4); Hematocrit 37.6 % (42.0-52.0); Hemoglobin 12.6 g/dl (14.0-18.0); Imm Gran Abs Auto 0.02 X10*3/uL (0.00-0.03); Imm Gran Pct Auto 0.3 % (0.0-0.4); Lymphocytes Absolute Auto 1.9 X10*3/uL (1.2-4.9); Lymphocytes Percent Auto 28.3 % (20-40); Mean Corpuscular HGB Conc 33.5 g/dl (31.0-36.0); Mean Corpuscular Hemoglobin 28.3 pg (27.0-33.0); Mean Corpuscular Volume 84.5 fL (80.0-98.0); Mean Platelet Volume 10.9 fL (9.4-12.4); Monocytes Absolute Auto 0.5 X10*3/uL (0.1-1.2); Monocytes Percent Auto 7.8 % (2-11); Neutrophils Absolute Auto 4.1 x10*3/uL (2.0-8.3); Neutrophils Percent Auto 60.2 % (45-73); Platelet Count 204 X10*3/uL (160-400); Red Blood Count 4.45 X10*6/uL (4.60-5.80); Red Cell Distribution Width 13.2 % (11.0-16.0); Retic HGB Equivalent 35.6 pg (30.0-35.0); Reticulocyte Percent 1.1 % (0.5-1.8); White Blood Count 6.8 X10*3/uL (4.8-10.8)
[2022-07-12 11:00] LABS: Estimated Average Glucose 194 mg/dL; Hemoglobin A1c % 8.4 %
[2022-07-12 11:15] LABS: Alanine Aminotransferase 15 U/L (0-40); Albumin Level 4.4 g/dL (3.5-5.0); Alkaline Phosphatase 59 U/L (39-117); Anion Gap 16 (12-20); Aspartate Amino Transferase 15 U/L (5-37); Blood Urea Nitrogen 21 mg/dL (9-16); Calcium 9.2 mg/dL (8.4-10.2); Carbon Dioxide 28 mmol/L (22-29); Chloride 103 mmol/L (96-108); Cholesterol 164 mg/dL; Estimated Glomerular Filt Rate 54; Glucose Random 172 mg/dL (60-115); HDL Cholesterol 48 mg/dL; Iron 75 mcg/dL (45-160); LDL Cholesterol Calculated 84 mg/dl; Percent Iron Saturation 23 % (15-50); Potassium 4.2 mmol/L (3.3-5.1); Sodium 143 mmol/L (135-145); Total Iron Binding Capacity 321 mcg/dL (228-428); Total Protein 7.2 g/dL (6.5-8.0); Triglycerides 163 mg/dL; Unsaturated Iron Binding 246 ug/dL
[2022-07-12 11:40] LABS: Ferritin 187 ng/mL (20-250); Free T4 (Free Thyroxine) 1.14 ng/dL (0.71-1.85); Thyroid Stimulating Hormone 0.53 uIU/mL (0.32-4.0)
[2022-07-12 11:53] LABS: Vitamin B12 418 pg/mL (200-900)
[2022-07-12 12:16] LABS: Creatinine Urine 157.39 mg/dL; Microalbum/Creatinine Ratio Ur 7.6 ug/mg cr
== END 2022-07-12 09:40 | disposition home or self-care (01) ==
LOC: HO.LAB 09:39
PROVIDERS: PCP Internal Medicine; Visit Provider Internal Medicine
DX: E11.65 Type 2 diabetes mellitus with hyperglycemia (principal); E78.00 Pure hypercholesterolemia, unspecified; D50.9 Iron deficiency anemia, unspecified
CPT/HCPCS: 36415; 80053; 80061; 82043; 82607; 82728; 82746; 83036; 83540; 84439; 84443; 85025; 85045

== ENCOUNTER 2022-07-17 10:07 | Day surgery (SDC) | payer MEDICARE, MEDICAID, SELFPAY ==
[2022-07-04 09:44] VITALS: BMI 26.3
--- NOTE | 2022-07-16 10:50 | P.CONAN_ITS ---
HPI - Anesthesia Eval Consult details Narrative: 76yo M for Colonoscopy Stable at 04/2022 cardiac visit (s/p CABG x 4 in 2019) FOR[facility]LY [facility] Active Problems Active Problems: All Active Problems (Updated 07/08/22 @ 10:43 by Aaron Collazo MD) BPH (benign prostatic hyperplasia) (Acute) Erectile dysfunction (Acute) Generalized anxiety disorder (Acute) COVID-19 virus infection (Acute) Left sciatic nerve pain (Acute) Diabetic neuropathy (Acute) CRVO (central retinal vein occlusion) (Acute) Iron deficiency anemia (Acute) GERD (gastroesophageal reflux disease) (Acute) Hypercholesterolemia (Acute) Coronary artery disease (Acute) Overweight (BMI 25.0-29.9) (Acute) Type 2 diabetes mellitus with hyperglycemia (Acute) Past Medical History Medical History (Updated 07/08/22 @ 10:43 by Aaron Collazo MD) Acute bronchitis Adrenal adenoma BPH (benign prostatic hyperplasia) Burning chest pain Chest pain Constipation Coronary artery disease Fatty liver Foul smelling urine GERD (gastroesophageal reflux disease) Headache HTN (hypertension) Hypercholesterolemia Iron deficiency anemia Left shoulder pain Overweight (BMI 25.0-29.9) Renal calculi Sciatic nerve palsy, left Type 2 diabetes mellitus with hyperglycemia Weight loss Family History Family History Father Diabetes Hypertension CVD (cardiovascular disease) Mother Diabetes Surgical History Surgical History (Updated 07/04/22 @ 09:36 by Anita Hawkins RN) H/O colonoscopy History of arthroscopy of left shoulder History of esophagogastroduodenoscopy (EGD) History of nephrolithiasis History of prostate surgery History of tonsillectomy History of transurethral resection of prostate Hx of hand surgery Hx of heart artery stent 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) Social History Social History (Updated 05/29/22 @ 09:16 by Myla Curran) Household Members: Spouse and Significant Other Housing: Condominium Are you a primary lead caregiver to a significant other at home: No Do you presently have visiting nurse or other home services: No Alcohol intake: former Patient Tobacco Use Status: Former Tobacco user Tobacco use type: Cigarette Cigarette Packs Per Day: 1.5 e-Cigarette/Vaping Use: Never Used Second Hand Smoke Exposure: No service: No Current occupational status: retired Cognitive needs: No Hearing needs: No Vision needs: No Meds Allergies Allergy/AdvReac Type Severity Reaction Status Date / Time lisinopril Allergy Mild Cough Verified 07/17/22 10:37 Penicillins Allergy Mild RASH Verified 07/08/22 10:31 linagliptin [Tradjenta] AdvReac Mild diarrhea Verified 07/08/22 10:31 Active Medications: Current Medications Lactated Ringer's (Lr) 1,000 mls @ 50 mls/hr IVCONT .Q20H PJ Ondansetron HCl (Ondansetron Hcl 4 Mg/2 Ml Vial) 4 mg IVPUSH ONCE PRN PRN Reason: Nausea and Vomiting Home Medications Medication Instructions Recorded Confirmed Last Taken Type aspirin 81 mg tablet,delayed 81 mg PO DAILY 09/13/20 07/04/22 Unknown History release cholecalciferol (vitamin D3) 25 25 mcg PO DAILY 09/13/20 07/04/22 Unknown History mcg (1,000 unit) tablet magnesium oxide 400 mg PO DAILY 09/13/20 05/29/22 Unknown History vitamin E (dl, acetate) 45 mg (100 100 unit PO DAILY 09/13/20 07/04/22 Unknown History unit) capsule blood sugar diagnostic #10 ea 01/08/21 05/29/22 Unknown History dulaglutide 1.5 mg/0.5 mL 1.5 mg subcut QWEEK 05/29/22 07/04/22 Unknown History subcutaneous pen injector (Trulicity) furosemide 40 mg tablet (Lasix) 40 mg PO BID 05/29/22 05/29/22 Unknown History metformin 500 mg tablet 1,000 mg PO TID 07/04/22 07/04/22 Unknown History isosorbide mononitrate 30 mg tab PO 07/09/22 07/09/22 Unknown History tablet,extended release 24 hr Exam Exam Date and Time: July 16, 2022 1050 Height,Weight and Vital Signs: Height 5 ft 7 in Weight 76.204 kg Pertinent Lab Results Pertinent Lab Results: Laboratory Tests 07/12/22 07/12/22 10:02 10:02 WBC 6.8 Hgb 12.6 L Hct 37.6 L Plt Count 204 Sodium 143 Potassium 4.2 Chloride 103 Carbon Dioxide 28 BUN 21 H Creatinine 1.28 Assessment and Plan Assessment Anesthesia Assessment: Chart Reviewed
[2022-07-17 10:38] VITALS: BMI 26.3
[2022-07-17 10:50] VITALS: BP 139/75; PULSE 76; RESP 16; TEMP 36.2; O2SAT 98
--- NOTE | 2022-07-17 10:50 | P.CONAN_ITS ---
[facility] Active Problems Active Problems: All Active Problems (Updated 07/08/22 @ 10:43 by Aaron Collazo MD) BPH (benign prostatic hyperplasia) (Acute) Erectile dysfunction (Acute) Generalized anxiety disorder (Acute) COVID-19 virus infection (Acute) Left sciatic nerve pain (Acute) Diabetic neuropathy (Acute) CRVO (central retinal vein occlusion) (Acute) Iron deficiency anemia (Acute) GERD (gastroesophageal reflux disease) (Acute) Hypercholesterolemia (Acute) Coronary artery disease (Acute) Overweight (BMI 25.0-29.9) (Acute) Type 2 diabetes mellitus with hyperglycemia (Acute) Past Medical History Medical History (Updated 07/08/22 @ 10:43 by Aaron Collazo MD) Acute bronchitis Adrenal adenoma BPH (benign prostatic hyperplasia) Burning chest pain Chest pain Constipation Coronary artery disease Fatty liver Foul smelling urine GERD (gastroesophageal reflux disease) Headache HTN (hypertension) Hypercholesterolemia Iron deficiency anemia Left shoulder pain Overweight (BMI 25.0-29.9) Renal calculi Sciatic nerve palsy, left Type 2 diabetes mellitus with hyperglycemia Weight loss Family History Family History Father Diabetes Hypertension CVD (cardiovascular disease) Mother Diabetes Family history of problems with anesthesia: No Surgical History Surgical History (Updated 07/04/22 @ 09:36 by Anita Hawkins RN) H/O colonoscopy History of arthroscopy of left shoulder History of esophagogastroduodenoscopy (EGD) History of nephrolithiasis History of prostate surgery History of tonsillectomy History of transurethral resection of prostate Hx of hand surgery Hx of heart artery stent 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) History of Problems with Anesthesia: No Social History Social History (Updated 05/29/22 @ 09:16 by Myla Curran) Household Members: Spouse and Significant Other Housing: Condominium Are you a primary career developer to a significant other at home: No Do you presently have visiting nurse or other home services: No Alcohol intake: former Patient Tobacco Use Status: Former Tobacco user Tobacco use type: Cigarette Cigarette Packs Per Day: 1.5 e-Cigarette/Vaping Use: Never Used Second Hand Smoke Exposure: No Use of substances other than those prescribed or required for medical reasons: No Are you DNR?: No Advance Directives: No Advance Directives Information Provided: Yes service: No Current occupational status: retired Cognitive needs: No Hearing needs: No Vision needs: No Meds Allergies Allergy/AdvReac Type Severity Reaction Status Date / Time lisinopril Allergy Mild Cough Verified 07/17/22 10:37 Penicillins Allergy Mild RASH Verified 07/08/22 10:31 linagliptin [Tradjenta] AdvReac Mild diarrhea Verified 07/08/22 10:31 Active Medications: Current Medications Lactated Ringer's (Lr) 1,000 mls @ 100 mls/hr IVCONT .Q10H PJ Ondansetron HCl (Ondansetron Hcl 4 Mg/2 Ml Vial) 4 mg IVPUSH ONCE PRN PRN Reason: Nausea and Vomiting Sodium Biphosphate/Sodium Phosphate (Sodium Phosphate,[place]-Dibasic 133 Ml Enema) 133 ml DE ONCE PRN PRN Reason: Poor Colonoscopy Prep Results Home Medications Medication Instructions Recorded Confirmed Last Taken Type aspirin 81 mg tablet,delayed 81 mg PO DAILY 09/13/20 07/04/22 Unknown History release cholecalciferol (vitamin D3) 25 25 mcg PO DAILY 09/13/20 07/04/22 Unknown History mcg (1,000 unit) tablet magnesium oxide 400 mg PO DAILY 09/13/20 05/29/22 Unknown History vitamin E (dl, acetate) 45 mg (100 100 unit PO DAILY 09/13/20 07/04/22 Unknown History unit) capsule blood sugar diagnostic #10 ea 01/08/21 05/29/22 Unknown History dulaglutide 1.5 mg/0.5 mL 1.5 mg subcut QWEEK 05/29/22 07/04/22 Unknown History subcutaneous pen injector (Trulicity) furosemide 40 mg tablet (Lasix) 40 mg PO BID 05/29/22 05/29/22 Unknown History metformin 500 mg tablet 1,000 mg PO TID 07/04/22 07/04/22 Unknown History isosorbide mononitrate 30 mg tab PO 07/09/22 07/09/22 Unknown History tablet,extended release 24 hr Exam Exam Date and Time: July 17, 2022 1050 Height,Weight and Vital Signs: Height 5 ft 7 in Weight 76.204 kg Airway Mallampati Class: II TM Dist: >3cm Neck ROM: Full Assessment and Plan Assessment Anesthesia Assessment: Anesthesia Plan Discussed and Chart Reviewed Final Anesthetic Review Family History of Problems with Anesthesia: No History of Problems with Anesthesia: No NPO: Yes ASA Class: III Final Preanesthetic Review: No Changes in Pt Med Stat, Meds/Allgs Chart Reviewed, Consent Obtained/Reviewed and Anes Risks/Benef Reviewed Patient Risk: Intermediate Procedure Risk: Low Anesthetic Plan Anesthetic Plan: MAC: Disposition: Standard PACU
[2022-07-17] MEDS: Lactated Ringers 1,000 ML 50 ML IVCONT (11:04)
[2022-07-17 11:08] LABS: Glucose, Whole Blood 138 mg/dL (60-115)
[2022-07-17 12:16] VITALS: BP 107/59; PULSE 71; RESP 16; TEMP 36.2; O2SAT 99
--- NOTE | 2022-07-17 12:30 | P.BOP_ITS ---
Brief Operative Note Date of Service: 07/17/22 Pre-op diagnosis: Anemia Post-op diagnosis: other (Rectal polyp, Gastritis, R/O Celiac disease) Procedure: Colonoscopy to the cecum with bx/removal of polyp, EGD with biopsies Surgeon: Elbert Pace Anesthesia: MAC Was an Precision Mechanical Instrument Maker used for this Procedure?: No Estimated blood loss (mL): 2.0 Pathology: other (A. Rectal polyp B. Descending duodenum C. Proximal stomach) Condition: stable Disposition: PACU
[2022-07-17 12:31] VITALS: BP 125/64; PULSE 76; RESP 16; TEMP 36.7; O2SAT 94
--- NOTE | 2022-07-18 12:17 | OP_ITS ---
SURGEON: Elbert Pace MD INDICATIONS: The patient presents for evaluation of iron deficiency anemia. Full consent has been obtained from him for both procedures, including risks of bleeding and perforation. PREOPERATIVE DIAGNOSIS: Iron deficiency anemia. POSTOPERATIVE DIAGNOSIS: PROCEDURE PERFORMED: ESTIMATED BLOOD LOSS: COMPLICATIONS: ANESTHESIA: Monitored anesthesia care. ASSISTANTS: SPECIMENS: PROCEDURES: 1. Colonoscopy to the cecum with biopsy and removal of polyp. 2. Esophagogastroduodenoscopy with biopsies. POSTOPERATIVE DIAGNOSES: Iron deficiency anemia, small colon polyp, diverticulosis, internal hemorrhoids, proximal gastritis, rule out celiac disease, hiatal hernia. DESCRIPTION OF PROCEDURE: The patient was placed in the left lateral decubitus position. The digital rectal exam revealed no abnormalities. The Olympus video pediatric colonoscope was entered into the rectum and advanced easily to the cecum. Once in the cecum, I did identify normal-appearing cecal pouch with appendiceal orifice and a normal-appearing ileocecal valve. The entire cecum and ileocecal valve appeared normal. There was transillumination of light deep in the right lower quadrant. The scope was slowly withdrawn assessing all mucosal surfaces carefully. Preparation was excellent. There was a significant amount of diverticular disease in the sigmoid colon. There was no sign of any colitis nor angiodysplasia. In the rectum, there was an approximately 4 mm polyp, which was biopsied and completely removed with cold biopsy forceps. The scope was retroflexed in the rectum visualizing internal hemorrhoids, but no other pathology. The scope was straightened out and withdrawn from the patient. He was turned around for the upper endoscopy. The Olympus video gastroscope was passed into the posterior oropharynx and upper esophagus under direct vision. The scope was passed slowly into the distal esophagus. The gastroesophageal junction appeared normal at 38 cm. There was no sign of any esophagitis. The scope entered the stomach. There was a small hiatal hernia. The scope was advanced to the pylorus and the duodenum was cannulated to the descending portion. The duodenum including the bulb appeared normal without mass or ulceration. Biopsies were obtained from the second and third portions of the duodenum. The scope was withdrawn back into the stomach. The gastric antrum and body appeared normal with good peristalsis. The scope was retroflexed visualizing the proximal stomach carefully, which appeared normal other than some mild areas of gastritis in the proximal stomach along the gastric folds. Biopsies were obtained. The scope was straightened. The scope was withdrawn back into the esophagus. The esophageal mucosa appeared normal. The scope was withdrawn from the patient. He tolerated both procedures well and was returned to recovery area in stable condition. IMPRESSION: 1. Small rectal polyp, status post biopsy and removal. 2. Diverticulosis. 3. Internal hemorrhoids. 4. Proximal gastritis. 5. Rule out celiac disease. 6. Hiatal hernia. PLAN: The results of the pathology will be checked. At this point, he is feeling well from a GI standpoint. He was advised to resume his aspirin in 48 hours. He will continue his daily omeprazole. I do not think he needs any further screening colonoscopies. He will follow up with Dr. Beltrán in regard to the anemia and will see me in several months for a followup visit. MD NADIA Portillo/ANISH / [phone]
== END 2022-07-17 13:02 | disposition home or self-care (01) ==
PROVIDERS: PCP Internal Medicine; Visit Provider Internal Medicine
PROC: (CPT 45380; principal; 2022-07-17 11:30)
DX: D50.9 Iron deficiency anemia, unspecified (principal); D12.5 Benign neoplasm of sigmoid colon; K57.30 Diverticulosis of large intestine without perforation or abscess without bleeding; K64.8 Other hemorrhoids; K21.9 Gastro-esophageal reflux disease without esophagitis; K29.50 Unspecified chronic gastritis without bleeding; K44.9 Diaphragmatic hernia without obstruction or gangrene; I10 Essential (primary) hypertension; E11.9 Type 2 diabetes mellitus without complications; Z79.84 Long term (current) use of oral hypoglycemic drugs; Z79.82 Long term (current) use of aspirin; Z79.899 Other long term (current) drug therapy; Z87.891 Personal history of nicotine dependence
CPT/HCPCS: 45380; 43239; 82947; 88305; 88342

== ENCOUNTER 2022-07-19 10:47 | Outpatient (REF) | payer MEDICARE, MEDICAID, SELFPAY ==
[2022-07-19 11:50] LABS: COVID-19 Test Negative (Negative); IDNOW Serial# 55D5AD1C
== END 2022-07-19 10:48 | disposition home or self-care (01) ==
LOC: HO.LAB 10:47
PROVIDERS: Visit Provider Internal Medicine
DX: Z20.822 Contact with and (suspected) exposure to COVID-19 (principal)
CPT/HCPCS: 87635; C9803

== ENCOUNTER 2022-11-21 09:19 | Outpatient (REF) | payer MEDICARE, MEDICAID, SELFPAY ==
--- NOTE | ~2022-11-21 | XR_ITS ---
EXAMINATION: XR SHOULDER, RIGHT CLINICAL INFORMATION: Shoulder pain COMPARISON: None TECHNIQUE: AP external rotation, Grashey, scapular Y, and axillary views of the right shoulder. FINDINGS: Mild-moderate acromioclavicular arthritis. Mild glenohumeral joint arthritis, small marginal glenoid spurring. Greater tuberosity spurring. No acute fracture or dislocation. No abnormal soft tissue calcification. No suspicious findings in the visualized right lung. XR/XR shoulder RT min 2V IMPRESSION: Mild-moderate acromioclavicular arthritis. Mild glenohumeral joint arthritis. Findings similar to previous.
[2022-11-21 11:04] LABS: Cholesterol 165 mg/dL; HDL Cholesterol 48 mg/dL; LDL Cholesterol Calculated 72 mg/dl; Triglycerides 228 mg/dL
== END 2022-11-21 09:20 | disposition home or self-care (01) ==
LOC: HO.XRAY 09:19
PROVIDERS: Absent Provider Nurse Practitioner Family; PCP Internal Medicine; Visit Provider Internal Medicine
DX: M25.511 Pain in right shoulder (principal); E78.2 Mixed hyperlipidemia; I25.10 Atherosclerotic heart disease of native coronary artery without angina pectoris; I10 Essential (primary) hypertension; E11.9 Type 2 diabetes mellitus without complications
CPT/HCPCS: 36415; 73030; 80061

== ENCOUNTER 2022-11-25 08:34 | Outpatient (REF) | payer MEDICARE, MEDICAID, SELFPAY ==
[2022-11-25 08:46] LABS: MANUAL DIFF FLAG NO
[2022-11-25 09:25] LABS: Basophils Absolute Auto 0.1 X10*3/uL (0.0-0.2); Basophils Percent Auto 0.8 % (0-2); Eosinophils Absolute Auto 0.2 X10*3/uL (0.0-0.4); Eosinophils Percent Auto 3.3 % (0-4); Hematocrit 37.9 % (42.0-52.0); Hemoglobin 12.5 g/dl (14.0-18.0); Imm Gran Abs Auto 0.02 X10*3/uL (0.00-0.03); Imm Gran Pct Auto 0.3 % (0.0-0.4); Immature Retic Fraction 8.2 % (2.3-13.4); Lymphocytes Absolute Auto 1.9 X10*3/uL (1.2-4.9); Lymphocytes Percent Auto 30.3 % (20-40); Mean Corpuscular Hemoglobin 28.8 pg (27.0-33.0); Mean Corpuscular Volume 87.3 fL (80.0-98.0); Mean Platelet Volume 11.5 fL (9.4-12.4); Monocytes Absolute Auto 0.6 X10*3/uL (0.1-1.2); Monocytes Percent Auto 9.2 % (2-11); Neutrophils Absolute Auto 3.4 x10*3/uL (2.0-8.3); Neutrophils Percent Auto 56.1 % (45-73); Platelet Count 208 X10*3/uL (160-400); Red Blood Count 4.34 X10*6/uL (4.60-5.80); Red Cell Distribution Width 12.9 % (11.0-16.0); Retic HGB Equivalent 32.8 pg (30.0-35.0); Reticulocyte Percent 1.1 % (0.5-1.8); Reticulocytes Absolute 0.048 X10*6/uL (0.026-0.095); White Blood Count 6.1 X10*3/uL (4.8-10.8)
[2022-11-25 09:36] LABS: Estimated Average Glucose 180 mg/dL; Hemoglobin A1c % 7.9 %
[2022-11-25 09:57] LABS: Alanine Aminotransferase 16 U/L (0-40); Albumin Level 4.3 g/dL (3.5-5.0); Alkaline Phosphatase 68 U/L (39-117); Anion Gap 15 (12-20); Aspartate Amino Transferase 18 U/L (5-37); Bilirubin Total 1.1 mg/dL (0.0-1.0); Blood Urea Nitrogen 13 mg/dL (9-16); Calcium 9.7 mg/dL (8.4-10.2); Carbon Dioxide 29 mmol/L (22-29); Chloride 104 mmol/L (96-108); Cholesterol 155 mg/dL; Estimated Glomerular Filt Rate 54; Glucose Random 201 mg/dL (60-115); HDL Cholesterol 46 mg/dL; Iron 69 mcg/dL (45-160); LDL Cholesterol Calculated 78 mg/dl; Percent Iron Saturation 26 % (15-50); Potassium 4.5 mmol/L (3.3-5.1); Sodium 143 mmol/L (135-145); Total Iron Binding Capacity 269 mcg/dL (228-428); Triglycerides 155 mg/dL; Unsaturated Iron Binding 200 ug/dL
[2022-11-25 10:17] LABS: Ferritin 164 ng/mL (20-250); Free T4 (Free Thyroxine) 1.14 ng/dL (0.71-1.85); Thyroid Stimulating Hormone 1.15 uIU/mL (0.32-4.0)
[2022-11-25 10:27] LABS: Folate 12.3 ng/mL (> or = 4.0); Vitamin B12 557 pg/mL (200-900)
== END 2022-11-25 08:35 | disposition home or self-care (01) ==
LOC: HO.LAB 08:34
PROVIDERS: PCP Internal Medicine; Visit Provider Internal Medicine
DX: D50.9 Iron deficiency anemia, unspecified (principal); E78.00 Pure hypercholesterolemia, unspecified; E11.65 Type 2 diabetes mellitus with hyperglycemia
CPT/HCPCS: 36415; 80053; 80061; 82607; 82728; 82746; 83036; 83540; 84439; 84443; 85025; 85045

== ENCOUNTER 2023-01-09 13:41 | Outpatient (REF) | payer MEDICARE, MEDICAID, SELFPAY ==
--- NOTE | ~2023-01-09 | US_ITS ---
EXAMINATION: Noninvasive assessment of the left lower extremities with ARTERIAL DUPLEX. CLINICAL INFORMATION: Peripheral vascular disease TECHNIQUE: Duplex Doppler techniques with waveform analysis and measurement of velocities in the left common femoral, profunda femoris, superficial femoral, popliteal and tibial arteries were performed. COMPARISON: None FINDINGS: DIRECT DUPLEX DOPPLER FINDINGS: LEFT LEG: Common femoral artery: 77.4 cm/s, phasicity: Triphasic Profunda femoris artery: 42.8 cm/s, phasicity: Biphasic Superficial femoral artery (proximal): 77.0 cm/s, phasicity: Triphasic Superficial femoral artery (mid): 80.1 cm/s, phasicity: Triphasic Superficial femoral artery (distal): 50.7 cm/s, phasicity: Triphasic Popliteal artery: 60.4 cm/s, phasicity: Triphasic. There is mild calcified plaque Posterior tibial artery: 105 cm/s, phasicity: Triphasic. Mild atherosclerotic plaque Peroneal artery: 49.5 cm/s, phasicity: Triphasic US/US arterial duplex LE LT IMPRESSION: Patent arterial flow throughout the left lower extremity. Mild scattered atherosclerotic plaque
== END 2023-01-09 13:42 | disposition home or self-care (01) ==
LOC: HO.US 13:41
PROVIDERS: Visit Provider Internal Medicine
DX: I73.9 Peripheral vascular disease, unspecified (principal)
CPT/HCPCS: 93926

== ENCOUNTER 2023-02-19 17:12 | Emergency (ER) | payer OTHER, MEDICAID, SELFPAY ==
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
--- NOTE | 2023-02-19 17:13 | ECG_ITS ---
Test Reason : CHEST PAIN Blood Pressure : / mmHG Vent. Rate : 082 BPM Atrial Rate : 082 BPM P-R Int : 166 ms QRS Dur : 086 ms QT Int : 374 ms P-R-T Axes : 016 -31 -14 degrees QTc Int : 436 ms Normal sinus rhythm Left axis deviation Minimal voltage criteria for LVH, may be normal variant ( R in aVL ) Inferior infarct , age undetermined Abnormal ECG When compared with ECG of 12-FEB-2022 14:28, No significant change was found Referred By: Lashay Dubois Electronically Signed By:ASHLEY YOU MD
[2023-02-19 17:14] VITALS: BP 149/77; PULSE 84; RESP 18; TEMP 36.9; O2SAT 97; BMI 25.1
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
[2023-02-19 17:30] LABS: MANUAL DIFF FLAG NO
[2023-02-19 17:33] LABS: Basophils Absolute Auto 0.1 X10*3/uL (0.0-0.2); Basophils Percent Auto 0.9 % (0-2); Eosinophils Absolute Auto 0.2 X10*3/uL (0.0-0.4); Eosinophils Percent Auto 3.2 % (0-4); Hematocrit 37.7 % (42.0-52.0); Hemoglobin 12.6 g/dl (14.0-18.0); Imm Gran Abs Auto 0.02 X10*3/uL (0.00-0.03); Imm Gran Pct Auto 0.3 % (0.0-0.4); Lymphocytes Absolute Auto 1.6 X10*3/uL (1.2-4.9); Lymphocytes Percent Auto 21.3 % (20-40); Mean Corpuscular HGB Conc 33.4 g/dl (31.0-36.0); Mean Corpuscular Hemoglobin 28.7 pg (27.0-33.0); Mean Corpuscular Volume 85.9 fL (80.0-98.0); Mean Platelet Volume 10.6 fL (9.4-12.4); Monocytes Absolute Auto 0.5 X10*3/uL (0.1-1.2); Neutrophils Absolute Auto 5.1 x10*3/uL (2.0-8.3); Neutrophils Percent Auto 67.3 % (45-73); Platelet Count 228 X10*3/uL (160-400); Red Blood Count 4.39 X10*6/uL (4.60-5.80); Red Cell Distribution Width 12.5 % (11.0-16.0); White Blood Count 7.6 X10*3/uL (4.8-10.8)
[2023-02-19 17:47] LABS: Alanine Aminotransferase 23 U/L (0-40); Albumin Level 4.3 g/dL (3.5-5.0); Alkaline Phosphatase 62 U/L (39-117); Anion Gap 14 (12-20); Aspartate Amino Transferase 19 U/L (5-37); Bilirubin Direct 0.2 mg/dL (0.0-0.5); Bilirubin Total 0.9 mg/dL (0.0-1.0); Blood Urea Nitrogen 15 mg/dL (9-16); Calcium 9.5 mg/dL (8.4-10.2); Carbon Dioxide 30 mmol/L (22-29); Chloride 99 mmol/L (96-108); Estimated Glomerular Filt Rate 49; Glucose Random 239 mg/dL (60-115); Magnesium 1.6 mg/dL (1.6-2.6); Sodium 139 mmol/L (135-145); Total Protein 6.9 g/dL (6.5-8.0)
[2023-02-19 17:53] LABS: Troponin-I High Sensitivity 3.3 ng/L (<3.5-35.0)
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
[2023-02-19 21:22] VITALS: BP 123/80; PULSE 83; RESP 16; TEMP 36.6; O2SAT 98
--- NOTE | 2023-02-19 21:57 | PC.NURSE ---
provider assess and discharge , this rn reviewed discharge instructions and medication with pt. pt verbalized understanding.
== END 2023-02-19 22:17 | disposition home or self-care (01) ==
PROVIDERS: Physician Assistant; Emergency Provider Emergency Medicine; PCP Internal Medicine
DX: Z04.1 Encounter for examination and observation following transport accident (principal); R07.89 Other chest pain
CPT/HCPCS: 36415; 71101; 80048; 80076; 83735; 84484; 85025; 93005; 99283; 99284

== ENCOUNTER 2023-04-29 20:23 | Observation (INO) | payer OTHER, SELFPAY ==
[2023-04-29 20:26] VITALS: BP 145/76; PULSE 70; O2SAT 96
[2023-04-29 20:31] VITALS: BP 115/68; PULSE 85; RESP 21; TEMP 36.3; O2SAT 94; BMI 25.1
--- NOTE | 2023-04-29 20:36 | ECG_ITS ---
Test Reason : CHEST PAIN Blood Pressure : / mmHG Vent. Rate : 081 BPM Atrial Rate : 081 BPM P-R Int : 168 ms QRS Dur : 086 ms QT Int : 380 ms P-R-T Axes : 020 -31 -17 degrees QTc Int : 441 ms Normal sinus rhythm Left axis deviation Minimal voltage criteria for LVH, may be normal variant ( R in aVL ) Inferior infarct (cited on or before 12-FEB-2022) Abnormal ECG When compared with ECG of 19-FEB-2023 17:31, No significant change was found Referred By: Generic ED Physician Electronically Signed By:ASHLEY YOU MD
[2023-04-29 20:48] LABS: MANUAL DIFF FLAG NO
[2023-04-29 20:55] LABS: Basophils Percent Auto 0.5 % (0-2); Eosinophils Absolute Auto 0.2 X10*3/uL (0.0-0.4); Eosinophils Percent Auto 3.1 % (0-4); Hematocrit 35.4 % (42.0-52.0); Imm Gran Abs Auto 0.02 X10*3/uL (0.00-0.03); Imm Gran Pct Auto 0.3 % (0.0-0.4); Lymphocytes Absolute Auto 2.6 X10*3/uL (1.2-4.9); Lymphocytes Percent Auto 35.4 % (20-40); Mean Corpuscular HGB Conc 33.9 g/dl (31.0-36.0); Mean Corpuscular Hemoglobin 28.4 pg (27.0-33.0); Mean Corpuscular Volume 83.9 fL (80.0-98.0); Mean Platelet Volume 10.7 fL (9.4-12.4); Monocytes Absolute Auto 0.6 X10*3/uL (0.1-1.2); Monocytes Percent Auto 7.8 % (2-11); Neutrophils Percent Auto 52.9 % (45-73); Platelet Count 231 X10*3/uL (160-400); Red Blood Count 4.22 X10*6/uL (4.60-5.80); Red Cell Distribution Width 12.7 % (11.0-16.0); White Blood Count 7.5 X10*3/uL (4.8-10.8)
[2023-04-29 20:59] LABS: Anion Gap 18 (12-20); Blood Urea Nitrogen 15 mg/dL (9-16); Calcium 9.5 mg/dL (8.4-10.2); Carbon Dioxide 24 mmol/L (22-29); Chloride 102 mmol/L (96-108); Creatinine Clr Calc Pharmacy 39.9; Estimated Glomerular Filt Rate 45; Glucose Random 217 mg/dL (60-115); Potassium 3.5 mmol/L (3.3-5.1); Sodium 140 mmol/L (135-145)
--- NOTE | 2023-04-29 21:35 | ED.CHESTPAIN ---
HPI - Chest Pain General Chief Complaint: Chest Pain Stated Complaint: CHEST DISCOMFORT Time Seen by Provider: 04/29/23 21:28 History of Present Illness HPI narrative: 77 years old status post CABG 4 vs in 2019, hypertension, hyperlipidemia, diabetes been doing okay after the bypass surgery comes here for chest pain started at around 19:00 while watching TV patient felt heavy in mid chest lasted for 20 minutes with cold sweats and slight shortness of took 4 baby aspirin and EMS gave him 1 sublingual nitro which relieved his pain item patient came here patient denied any pain no palpitation no syncope patient did not have any chest pain after cardiac bypass Related Data Home Medications Medication Instructions Recorded Confirmed aspirin 81 mg tablet,delayed 81 mg PO DAILY 09/13/20 04/29/23 release cholecalciferol (vitamin D3) 25 25 mcg PO DAILY 09/13/20 04/29/23 mcg (1,000 unit) tablet magnesium oxide 400 mg PO DAILY 09/13/20 04/29/23 vitamin E (dl, acetate) 45 mg (100 100 unit PO DAILY 09/13/20 04/29/23 unit) capsule blood sugar diagnostic #10 ea 01/08/21 02/06/23 isosorbide mononitrate 30 mg 1 tab PO DAILY 07/09/22 02/06/23 tablet,extended release 24 hr Previous Rx's Medication Instructions Recorded ascorbic acid (vitamin C) 500 mg 500 mg PO BID 90 days #180 tabs 07/19/21 tablet (Vitamin C) atorvastatin 40 mg tablet 40 mg PO DAILY #90 tabs 07/08/22 blood sugar diagnostic #2 boxes 07/08/22 dulaglutide 1.5 mg/0.5 mL 1.5 mg (0.5 mL) subcut QWEEK #2 mL 09/12/22 [facility] blood sugar diagnostic (OneTouch #2 boxes 09/19/22 Ultra Test strips) gabapentin 100 mg capsule 100 mg PO BEDTIME #30 caps 09/19/22 omeprazole 20 mg capsule,delayed 20 mg PO QAM #90 caps 10/29/22 release metformin 500 mg tablet 1,000 mg PO BIDWMEAL 90 days #360 11/03/22 tabs furosemide 40 mg tablet (Lasix) 40 mg PO BID 90 days #180 tabs 12/05/22 walking cane #1 ea 01/19/23 glipizide 5 mg tablet, extended 5 mg PO DAILY #90 tabs 02/04/23 release 24 hr metoprolol tartrate 25 mg tablet 25 mg PO TID htn 90 days #270 tabs 02/06/23 simethicone 125 mg chewable tablet 125 mg PO BID-QID PRN abdominal 02/06/23 (Gas Relief (simethicone)) distention #20 tabs ibuprofen 800 mg tablet 800 mg PO TID PRN pain #30 tabs 02/19/23 cyclobenzaprine 10 mg tablet 10 mg PO BEDTIME PRN muscle spasm 04/10/23 #14 tabs finasteride 5 mg tablet (Proscar) 5 mg PO DAILY prostate 90 days #90 04/15/23 tabs Allergies Allergy/AdvReac Type Severity Reaction Status Date / Time lisinopril Allergy Mild Cough Verified 04/10/23 11:38 Penicillins Allergy Mild RASH Verified 04/10/23 11:38 linagliptin [Tradjenta] AdvReac Mild diarrhea Verified 04/10/23 11:38 Review of Systems Review of Systems: Yes all other systems are reviewed and are negative [facility] Past Medical History Medical History Acute bronchitis Adrenal adenoma BPH (benign prostatic hyperplasia) Burning chest pain Chest pain Constipation Coronary artery disease Fatty liver Foul smelling urine GERD (gastroesophageal reflux disease) Headache HTN (hypertension) Hypercholesterolemia Iron deficiency anemia Left shoulder pain Overweight (BMI 25.0-29.9) Renal calculi Sciatic nerve palsy, left Type 2 diabetes mellitus with hyperglycemia Weight loss Surgical History H/O colonoscopy History of arthroscopy of left shoulder History of esophagogastroduodenoscopy (EGD) History of nephrolithiasis History of prostate surgery History of tonsillectomy History of transurethral resection of prostate Hx of hand surgery Hx of heart artery stent 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) Family History Family History Father Diabetes Hypertension CVD (cardiovascular disease) Mother Diabetes Social History Social History Household Members: Spouse and Significant [facility] Are you a primary health care attorney to a significant other at home: No Do you presently have visiting nurse or other home services: No Alcohol intake: never Patient Tobacco Use Status: Former Tobacco user Tobacco use type: Cigarette Cigarette Packs Per Day: 1.5 Smoked in Last 30 Days: No e-Cigarette/Vaping Use: Never Used Second Hand Smoke Exposure: No Use of substances other than those prescribed or required for medical reasons: No Advance Directives: No Advance Directives Information Provided: No service: No Current occupational status: retired Cognitive needs: Yes (cane) Hearing needs: No Vision needs: Yes (perscription glasses) Physical Exam Vital Signs: Vital Signs: Last Vital Signs Temp 98.0 F 04/30/23 00:20 Pulse 74 04/30/23 00:20 Resp 16 04/30/23 00:20 BP 106/59 L 04/30/23 00:20 Pulse Ox 93 04/30/23 00:20 O2 Del Method Room Air 04/30/23 00:20 BMI result Body Mass Index 25.1 Appearance: Alert. Oriented X3. No acute distress. Eyes: PERRLA, No Nystagmus ENT: Pharynx normal. Oral Mucosa moist Neck: Normal inspection. Neck supple. CVS: Normal heart rate and rhythm. Pulses normal. Respiratory: No respiratory distress. Equal air entry bilateral, no wheezing/rales/rhonchi Abdomen: Soft and nontender. Bowel sounds are present, no mass palpable, no CVA tenderness Skin: Skin warm and dry. Normal skin color. Normal skin turgor. Extremities: No lower extremity edema. No calf tenderness Neuro: Oriented X 3. No motor deficit. No sensory deficit.No cerebellar signs , cranial nerves II-XII intact Medications Administered Generic Name Dose Route Start Last Admin Trade Name Freq PRN Reason Stop Dose Admin Insulin Human Lispro 0 unit 04/29/23 23:40 04/30/23 00:20 Insulin Lispro 100 Unit/Ml 3 Ml Vial SUBCUT Not Given QIDACHS [facility] Protocol Sodium Chloride 3 ml 04/30/23 00:00 04/30/23 00:21 0.9 % Sodium Chloride Flush 3 Ml Syringe IVFLUSH 3 ml QSHIFT [facility] Administration Discontinued Medications Generic Name Dose Route Start Last Admin Trade Name Freq PRN Reason Stop Dose Admin Nitroglycerin 0.5 inch 04/29/23 21:59 04/29/23 22:05 Nitroglycerin 2 % Oint 1 Gm Packet TRANSDERMA 04/29/23 22:00 0.5 inch ONCE ONE Administration Medical Decision Making Medical Decision Making [facility] Narrative: Patient with coronary disease status post CABG comes in for chest pain which seems to be typical although 2 sets of cardiac enzymes without delta change and EKG without any acute ischemic changes patient need further evaluation for ACS rule out Consult Healthcare Provider Management of the patient was discussed with: Hospitalist Lab Data [facility] Lab Attestation statement: I reviewed the patient's lab results. 04/29/23 20:37 04/29/23 20:37 Labs: Lab Results 04/29/23 04/29/23 04/29/23 Range/Units 20:37 20:37 20:37 WBC 7.5 (4.8-10.8) X10*3/uL RBC 4.22 L (4.60-5.80) X10*6/uL Hgb 12.0 L (14.0-18.0) g/dl Hct 35.4 L (42.0-52.0) % MCV 83.9 (80.0-98.0) fL MCH 28.4 (27.0-33.0) pg MCHC 33.9 (31.0-36.0) g/dl RDW 12.7 (11.0-16.0) % Plt Count 231 (160-400) X10*3/uL MPV 10.7 (9.4-12.4) fL Immature Gran % (Auto) 0.3 (0.0-0.4) % Neut % (Auto) 52.9 (45-73) % Lymph % (Auto) 35.4 (20-40) % [place] % (Auto) 7.8 (2-11) % Eos % (Auto) 3.1 (0-4) % Baso % (Auto) 0.5 (0-2) % Lymph # (Auto) 2.6 (1.2-4.9) X10*3/uL [place] # (Auto) 0.6 (0.1-1.2) X10*3/uL Eos # (Auto) 0.2 (0.0-0.4) X10*3/uL Baso # (Auto) 0.0 (0.0-0.2) X10*3/uL Abs Immat Gran (auto) 0.02 (0.00-0.03) X10*3/uL Absolute Neuts (auto) 4.0 (2.0-8.3) x10*3/uL Absolute Nucleated RBC 0.000 (0.0-0.012) X10*3/uL Nucleated RBC % (auto) 0.0 (0.0-0.2) /100WBC Sodium 140 (135-145) mmol/L Potassium 3.5 (3.3-5.1) mmol/L Chloride 102 (96-108) mmol/L Carbon Dioxide 24 (22-29) mmol/L Anion Gap 18 (12-20) BUN 15 (9-16) mg/dL Creatinine 1.50 H (0.5-1.4) mg/dL Estim Creat Clear Calc 39.9 Estimated GFR 45 Random Glucose 217 H (60-115) mg/dL Calcium 9.5 (8.4-10.2) mg/dL Troponin I High Sens 3.0 (<3.5-35.0) ng/L 04/29/23 Range/Units 22:52 WBC (4.8-10.8) X10*3/uL RBC (4.60-5.80) X10*6/uL Hgb (14.0-18.0) g/dl Hct (42.0-52.0) % MCV (80.0-98.0) fL MCH (27.0-33.0) pg MCHC (31.0-36.0) g/dl RDW (11.0-16.0) % Plt Count (160-400) X10*3/uL MPV (9.4-12.4) fL Immature Gran % (Auto) (0.0-0.4) % Neut % (Auto) (45-73) % Lymph % (Auto) (20-40) % [place] % (Auto) (2-11) % Eos % (Auto) (0-4) % Baso % (Auto) (0-2) % Lymph # (Auto) (1.2-4.9) X10*3/uL [place] # (Auto) (0.1-1.2) X10*3/uL Eos # (Auto) (0.0-0.4) X10*3/uL Baso # (Auto) (0.0-0.2) X10*3/uL Abs Immat Gran (auto) (0.00-0.03) X10*3/uL Absolute Neuts (auto) (2.0-8.3) x10*3/uL Absolute Nucleated RBC (0.0-0.012) X10*3/uL Nucleated RBC % (auto) (0.0-0.2) /100WBC Sodium (135-145) mmol/L Potassium (3.3-5.1) mmol/L Chloride (96-108) mmol/L Carbon Dioxide (22-29) mmol/L Anion Gap (12-20) BUN (9-16) mg/dL Creatinine (0.5-1.4) mg/dL Estim Creat Clear Calc Estimated GFR Random Glucose (60-115) mg/dL Calcium (8.4-10.2) mg/dL Troponin I High Sens 3.3 (<3.5-35.0) ng/L Independent Interpretation I performed an independent interpretation of an: EKG Interpretation: Normal sinus rhythm left axis deviation LVH Q-wave in inferior lead no acute ST T wave changes no acute ischemia no change from the previous EKG Discharge Plan Discharge Clinical Impression: ACS (acute coronary syndrome) Patient Disposition: Admitted As Inpatient
[2023-04-29] MEDS: Nitroglycerin 2 % Oint 1 GM Packet 0.5 INCH TRANSDERMA (22:05)
[2023-04-29 23:17] LABS: Troponin-I High Sensitivity 3.3 ng/L (<3.5-35.0)
--- NOTE | 2023-04-29 23:32 | P.HPHOSP_ITS ---
History of Present Illness Date of Service: 04/29/23 Chief Complaint: chest pain 77-year-old male with past medical history of CAD status post quadruple bypass, diabetes, hypertension, iron deficiency anemia, HLD, GERD, presents the hospital with complaints of chest pain. Patient reports he was watching TV when all the sudden he developed midsternal heavy pressure-like chest pain that lasted about 15-20 minutes, severe,resolved spontaneously, associated with mild shortness of breath, no palpitations, no nausea vomiting, no abdominal pain, no diarrhea constipation, no urinary symptoms and no lower extremity edema. No diaphoresis. No fever or chills. No urinary symptoms and no lower extremity edema. he reports that he called EMS, was told to take4 baby aspirin, on arrival of EMS he was given nitroglycerin sublingual which resolved his symptoms. On arrival to the ED patient hemodynamically stable with no significant abnormal vitals Labs are significant for WBC count 7.5, labs otherwise unremarkable, troponin negative x2 EKG showed normal sinus rhythm, with left axis deviation, With chronic changes given patient's past medical history patient will be admitted for evaluation Review of Systems Review of Systems: Yes all other systems are reviewed and are negative [facility] Medical History (Updated 04/30/23 @ 06:16 by Mel Antoine MD) Acute bronchitis Adrenal adenoma BPH (benign prostatic hyperplasia) Burning chest pain Chest pain Constipation Coronary artery disease Fatty liver Foul smelling urine GERD (gastroesophageal reflux disease) Headache HTN (hypertension) Hypercholesterolemia Iron deficiency anemia Left shoulder pain Overweight (BMI 25.0-29.9) Renal calculi Sciatic nerve palsy, left Type 2 diabetes mellitus with hyperglycemia Weight loss Family History Father Diabetes Hypertension CVD (cardiovascular disease) Mother Diabetes Surgical History H/O colonoscopy History of arthroscopy of left shoulder History of esophagogastroduodenoscopy (EGD) History of nephrolithiasis History of prostate surgery History of tonsillectomy History of transurethral resection of prostate Hx of hand surgery Hx of heart artery stent 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) Social History Household Members: Family Housing: House Are you a primary health care / medical job titles to a significant other at home: No Do you presently have visiting nurse or other home services: No Alcohol intake: never Patient Tobacco Use Status: Former Tobacco user Tobacco use type: Cigarette Cigarette Packs Per Day: 1.5 Smoked in Last 30 Days: No e-Cigarette/Vaping Use: Never Used Second Hand Smoke Exposure: No Use of substances other than those prescribed or required for medical reasons: No Currently Displaying Signs/Symptoms of Drug Intoxication Withdrawal: No Have you been hit, kicked, punched, or otherwise hurt by someone within the past year? If so, by whom?: No Do you feel safe in your current relationship?: No Is there a partner from a previous relationship who is making you feel unsafe now?: No Are you made to feel afraid or neglected: No Advance Directives: No Advance Directives Information Provided: No Do you have thoughts of harming others: None Do you have a plan to hurt others: No Plan Recently lost weight without trying: No Eating poorly because of decreased appetite: No Nutrition Risks: No Nutritional Risk service: No Current occupational status: retired Cognitive needs: Yes (cane) Hearing needs: No Vision needs: Yes (perscription glasses) Meds Allergies Allergy/AdvReac Type Severity Reaction Status Date / Time lisinopril Allergy Mild Cough Verified 04/10/23 11:38 Penicillins Allergy Mild RASH Verified 04/10/23 11:38 linagliptin [Tradjenta] AdvReac Mild diarrhea Verified 04/10/23 11:38 Home Medications Medication Instructions Recorded Confirmed Last Taken Type aspirin 81 mg tablet,delayed 81 mg PO DAILY 09/13/20 04/29/23 04/28/23 History release cholecalciferol (vitamin D3) 25 25 mcg PO DAILY 09/13/20 04/29/23 04/28/23 History mcg (1,000 unit) tablet magnesium oxide 400 mg PO DAILY 09/13/20 04/29/23 04/28/23 History vitamin E (dl, acetate) 45 mg (100 100 unit PO DAILY 09/13/20 04/29/23 04/28/23 History unit) capsule blood sugar diagnostic #10 ea 01/08/21 02/06/23 Unknown History isosorbide mononitrate 30 mg 1 tab PO DAILY 07/09/22 02/06/23 Unknown History tablet,extended release 24 hr Physical Exam Vital Signs and Narrative: Vital Signs: Last Vital Signs Temp 97.3 F 04/29/23 20:31 Pulse 85 04/29/23 20:31 Resp 21 H 04/29/23 20:31 BP 115/68 04/29/23 20:31 Pulse Ox 94 04/29/23 20:31 O2 Del Method Room Air 04/29/23 20:31 BMI result Body Mass Index 25.1 Const: General: cooperative and no acute distress Orientation/consciousness: patient oriented x3 Eyes: General: appearance normal, both eyes and all related structures Resp: Effort & Inspection: able to speak in complete sentences Auscultation: clear to auscultation bilaterally Cardio: Rate: regular rate Rhythm: regular rhythm GI: Palpation (GI): Soft to palpation Auscultation: normal bowel sounds Skin: General skin exam: no rashes or lesions noted Neuro: General: patient oriented x3 Cognition (Neuro): normal cognition Extrem: General: Yes normal to inspection and Yes no pedal edema Results Labs 04/29/23 20:37 04/29/23 20:37 Labs: Laboratory Results - last 24 hr 04/29/23 04/29/23 04/29/23 20:37 20:37 20:37 MCV 83.9 MCH 28.4 MCHC 33.9 RDW 12.7 Plt Count 231 MPV 10.7 Immature Gran % (Auto) 0.3 Neut % (Auto) 52.9 Lymph % (Auto) 35.4 [place] % (Auto) 7.8 Eos % (Auto) 3.1 Baso % (Auto) 0.5 Lymph # (Auto) 2.6 [place] # (Auto) 0.6 Eos # (Auto) 0.2 Baso # (Auto) 0.0 Abs Immat Gran (auto) 0.02 Absolute Neuts (auto) 4.0 Absolute Nucleated RBC 0.000 Nucleated RBC % (auto) 0.0 Anion Gap 18 Estim Creat Clear Calc 39.9 Estimated GFR 45 Random Glucose 217 H Calcium 9.5 Troponin I High Sens 3.0 04/29/23 22:52 MCV MCH MCHC RDW Plt Count MPV Immature Gran % (Auto) Neut % (Auto) Lymph % (Auto) [place] % (Auto) Eos % (Auto) Baso % (Auto) Lymph # (Auto) [place] # (Auto) Eos # (Auto) Baso # (Auto) Abs Immat Gran (auto) Absolute Neuts (auto) Absolute Nucleated RBC Nucleated RBC % (auto) Anion Gap Estim Creat Clear Calc Estimated GFR Random Glucose Calcium Troponin I High Sens 3.3 Assessment and Plan (1) Chest pain: Qualifiers: Chest pain type: precordial pain Qualified Code(s): R07.2 - Precordial pain Status: Acute Plan this is a 77-year-old male with past medical history of CAD, hypertension, diabetes, history of CABG presents the hospital with complaints of chest pain # chest pain - typical of cardiac - has significant history of CAD - troponin negative x2 - EKG shows no evidence of ACS - P.r.n. nitroglycerin - cardiology consulted further evaluation - continue metoprolol # hypertension - stable - continue home antihypertensives # diabetes - hold oral antihyperglycemics - low-dose sliding scale insulin - continue home insulin - diabetic diet DVT prophylaxis: Early ambulation Time Spent With Patient Time: Total time managing care of this patient today ____ minutes. Quality Stroke Does the patient have a stroke diagnosis?: No VTE Prior VTE?: No VTE Risk Level:: Medical - low VTE Device Contraindication: Treatment Not Indicated VTE Drug Contraindication: Treatment Not Indicated
[2023-04-30 00:20] VITALS: BP 106/59; PULSE 74; RESP 16; TEMP 36.7; O2SAT 93
[2023-04-30] MEDS: 0.9 % Sodium Chloride Flush 3 ML SYRINGE IVFLUSH ×2 (00:21→09:18)
[2023-04-30 00:22] LABS: Glucose, Whole Blood 140 mg/dL (60-115)
--- NOTE | 2023-04-30 04:20 | PC.NURSE ---
Patient arrived to the unit via stretcher, he walked from stretcher to bed with a steady gait. Pt denies chest pain, denies SOB, sinus rhythm on monitoring and evaluation advisor with normal vital limits. All questions answered, pt has no concerns at this time, aware of plan of care.
[2023-04-30 04:28] VITALS: BMI 24.8
[2023-04-30 06:59] VITALS: BP 116/65; PULSE 66; RESP 20; TEMP 36.4; O2SAT 95
[2023-04-30 07:18] LABS: Alanine Aminotransferase 22 U/L (0-40); Albumin Level 3.8 g/dL (3.5-5.0); Alkaline Phosphatase 56 U/L (39-117); Anion Gap 11 (12-20); Aspartate Amino Transferase 18 U/L (5-37); Bilirubin Total 0.8 mg/dL (0.0-1.0); Blood Urea Nitrogen 16 mg/dL (9-16); Calcium 9.3 mg/dL (8.4-10.2); Carbon Dioxide 30 mmol/L (22-29); Chloride 103 mmol/L (96-108); Creatinine Clr Calc Pharmacy 50.7; Estimated Glomerular Filt Rate 60; Glucose Random 139 mg/dL (60-115); Potassium 3.2 mmol/L (3.3-5.1); Sodium 141 mmol/L (135-145); Total Protein 6.5 g/dL (6.5-8.0)
[2023-04-30 07:26] LABS: Glucose, Whole Blood 134 mg/dL (60-115)
[2023-04-30 08:50] LABS: Cholesterol 218 mg/dL; HDL Cholesterol 49 mg/dL; LDL Cholesterol Calculated 141 mg/dl; Triglycerides 143 mg/dL
[2023-04-30] MEDS: Magnesium Oxide 400 MG TABLET PO (09:18)
[2023-04-30] MEDS: Aspirin Enteric Coated 81 MG TABLET.DR PO (09:18)
[2023-04-30] MEDS: Potassium Chloride ER 20 MEQ TAB.ER.PRT PO (09:18)
[2023-04-30] MEDS: Omeprazole 20 MG CAPSULE.DR PO (09:18)
[2023-04-30] MEDS: Atorvastatin Calcium 40 MG TABLET PO (09:19)
[2023-04-30] MEDS: Metoprolol Tartrate 25 MG TABLET PO (09:19)
[2023-04-30] MEDS: Finasteride 5 MG TABLET PO (09:19)
[2023-04-30] MEDS: Ascorbic Acid 500 MG TABLET PO (09:19)
[2023-04-30] MEDS: Furosemide 40 MG TABLET PO (09:19)
[2023-04-30] MEDS: Cholecalciferol (Vitamin D3) 25 MCG TABLET PO (09:19)
--- NOTE | 2023-04-30 10:21 | PHA.MEDREC ---
Pharmacy Consult ? Medication Reconciliation Pharmacy has completed the medication reconciliation. Spoke to patient at bedside, confirmed all doses and medications
--- NOTE | 2023-04-30 10:48 | PM.CNCAR ---
History of Present Illness History of Present Illness Date of Service: 04/30/23 Requesting physician: Veronica Vieyra Consult reason: chest pain Chief complaint: Chest Pain Narrative: I was consulted to see me again in cardiology consultation today for chest discomfort. He is a pleasant 77-year-old male with prior history of CAD status post stenting multiple times and then coronary artery bypass grafting 3 and half years ago at [facility] for symptoms of exertional fatigue. Symptoms have not recurred. Yesterday he ate really spicy food and subsequently got discomfort in his chest across the chest in the upper epigastric area. Symptoms were very uncomfortable and therefore decided to come to the emergency room. In the emergency room his troponins were negative. His EKG was nonischemic. However given his prior history was admitted. He has remained chest pain-free at this point time. He denies any recent symptoms exertional fatigue or chest pain. Denies any worsening shortness of breath, orthopnea, PND. Takes all his medications regularly. Review of Systems Constitutional: Constitutional: Reports no additional constitutional complaints Eyes: Eyes: Reports no additional eye complaints Cardiovascular: Cardiovascular: Reports chest pain at rest, Denies chest pain with activity, Reports epigastric discomfort, Denies lightheadedness, Denies Loss of Consciousness, Denies palpitations, Denies dyspnea and Denies dyspnea on exertion Respiratory: Respiratory: Reports no additional respiratory complaints, Denies dyspnea and Denies dyspnea on exertion Gastrointestinal: Gastrointestinal: Reports no additional gastrointestinal complaints Genitourinary: Genitourinary: Reports no additional male genitourinary complaints Musculoskeletal: Musculoskeletal: Reports no additional musculoskeletal complaints Integumentary/Breasts: Skin/Breast: Reports system reviewed and no additional complaints, except as docu Neurologic: Reports system reviewed and no additional complaints, except as documented Psychiatric: Psychiatric: Reports no additional psychiatric complaints Endocrine: Endocrine: Reports no additional endocrine complaints and Denies palpitations PMFSH Past Medical History Medical History Acute bronchitis Adrenal adenoma BPH (benign prostatic hyperplasia) Burning chest pain Chest pain Constipation Coronary artery disease Fatty liver Foul smelling urine GERD (gastroesophageal reflux disease) Headache HTN (hypertension) Hypercholesterolemia Iron deficiency anemia Left shoulder pain Overweight (BMI 25.0-29.9) Renal calculi Sciatic nerve palsy, left Type 2 diabetes mellitus with hyperglycemia Weight loss Family History Family History Father Diabetes Hypertension CVD (cardiovascular disease) Mother Diabetes Surgical History Surgical History H/O colonoscopy History of arthroscopy of left shoulder History of esophagogastroduodenoscopy (EGD) History of nephrolithiasis History of prostate surgery History of tonsillectomy History of transurethral resection of prostate Hx of hand surgery Hx of heart artery stent 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) Social History Social History Household Members: Family Housing: House Are you a primary child care attendant to a significant other at home: No Do you presently have visiting nurse or other home services: No Alcohol intake: never Patient Tobacco Use Status: Former Tobacco user Tobacco use type: Cigarette Cigarette Packs Per Day: 1.5 Smoked in Last 30 Days: No e-Cigarette/Vaping Use: Never Used Second Hand Smoke Exposure: No Use of substances other than those prescribed or required for medical reasons: No Currently Displaying Signs/Symptoms of Drug Intoxication Withdrawal: No Have you been hit, kicked, punched, or otherwise hurt by someone within the past year? If so, by whom?: No Do you feel safe in your current relationship?: No Is there a partner from a previous relationship who is making you feel unsafe now?: No Are you made to feel afraid or neglected: No Advance Directives: No Advance Directives Information Provided: No Do you have thoughts of harming others: None Do you have a plan to hurt others: No Plan Recently lost weight without trying: No Eating poorly because of decreased appetite: No Nutrition Risks: No Nutritional Risk service: No Current occupational status: retired Cognitive needs: Yes (cane) Hearing needs: No Vision needs: Yes (perscription glasses) Meds Allergies Allergy/AdvReac Type Severity Reaction Status Date / Time lisinopril Allergy Mild Cough Verified 04/10/23 11:38 Penicillins Allergy Mild RASH Verified 04/10/23 11:38 linagliptin [Tradjenta] AdvReac Mild diarrhea Verified 04/10/23 11:38 Active Medications: Current Medications Acetaminophen (Acetaminophen 325 Mg Tablet) 650 mg PO Q6H PRN PRN Reason: Pain, Mild (Pain Scale 1-3) Ascorbic Acid (Ascorbic Acid 500 Mg Tablet) 500 mg PO BID [facility] Last Admin: 04/30/23 09:19 Dose: 500 mg Aspirin (Aspirin Enteric Coated 81 Mg Tablet.) 81 mg PO DAILY [facility] Last Admin: 04/30/23 09:18 Dose: 81 mg Atorvastatin Calcium (Atorvastatin Calcium 40 Mg Tablet) 40 mg PO DAILY [facility] Last Admin: 04/30/23 09:19 Dose: 40 mg Docusate Sodium (Docusate Sodium 100 Mg Capsule) 100 mg PO DAILY PRN PRN Reason: Constipation Finasteride (Finasteride 5 Mg Tablet) 5 mg PO DAILY [facility] Last Admin: 04/30/23 09:19 Dose: 5 mg Furosemide (Furosemide 40 Mg Tablet) 40 mg PO BID [facility]; Protocol Last Admin: 04/30/23 09:19 Dose: 40 mg Glucose (Glucose Gel 15 Gm Gel..Gram.) 15 gm PO Q15M PRN; Protocol PRN Reason: per Hypoglycemia Standing Ord. Dextrose (D10) 250 mls @ 750 mls/hr IV Q15M PRN; Protocol PRN Reason: per Hypoglycemia Standing Ord. Insulin Human Lispro (Insulin Lispro 100 Unit/Ml 3 Ml Vial) 0 unit SUBCUT QIDACHS [facility]; Protocol Last Admin: 04/30/23 07:56 Dose: Not Given Magnesium Oxide (Magnesium Oxide 400 Mg Tablet) 400 mg PO DAILY [facility] Last Admin: 04/30/23 09:18 Dose: 400 mg Metoprolol Tartrate (Metoprolol Tartrate 25 Mg Tablet) 25 mg PO TID [facility]; Protocol Last Admin: 04/30/23 09:19 Dose: 25 mg Omeprazole (Omeprazole 20 Mg Capsule.) 20 mg PO DAILY@0630 [facility] Last Admin: 04/30/23 09:18 Dose: 20 mg Ondansetron HCl (Ondansetron Hcl 4 Mg/2 Ml Vial) 4 mg IVPUSH Q8H PRN PRN Reason: Nausea and Vomiting Sodium Chloride (0.9 % Sodium Chloride Flush 3 Ml Syringe) 3 ml IVFLUSH QSHIFT [facility] Last Admin: 04/30/23 09:18 Dose: 3 ml Vitamin D (Cholecalciferol (Vitamin D3) 25 Mcg Tablet) 25 mcg PO DAILY [facility] Last Admin: 04/30/23 09:19 Dose: 25 mcg Vitamin E (Vitamin E (Dl,Tocopheryl Acet) 180 Mg (400 Unit) Capsule) 180 mg PO DAILY [facility] Home Medications Medication Instructions Recorded Confirmed Last Taken Type aspirin 81 mg tablet,delayed 81 mg PO DAILY 09/13/20 04/29/23 04/28/23 History release cholecalciferol (vitamin D3) 25 25 mcg PO DAILY 09/13/20 04/29/23 04/28/23 History mcg (1,000 unit) tablet magnesium oxide 400 mg PO DAILY 09/13/20 04/29/23 04/28/23 History vitamin E (dl, acetate) 45 mg (100 100 unit PO DAILY 09/13/20 04/29/23 04/28/23 History unit) capsule blood sugar diagnostic #10 ea 01/08/21 02/06/23 Unknown History isosorbide mononitrate 30 mg 1 tab PO DAILY 07/09/22 04/30/23 Unknown History tablet,extended release 24 hr dulaglutide 1.5 mg/0.5 mL 1.5 mg subcut FR 04/30/23 04/30/23 04/25/23 History subcutaneous pen injector (Trulicity) gabapentin 100 mg capsule 100 mg PO BEDTIME PRN Pain 04/30/23 04/30/23 Unknown History Physical Exam Vital Signs: Vital Signs: Last Vital Signs Temp 97.5 F 04/30/23 06:59 Pulse 66 04/30/23 06:59 Resp 20 04/30/23 06:59 BP 116/65 04/30/23 06:59 Pulse Ox 95 04/30/23 06:59 O2 Del Method Room Air 04/30/23 06:59 BMI result Body Mass Index 24.8 Const: General: cooperative, comfortable, no acute distress, alert, awake and Physically active Nutritional Appearance: average body habitus Orientation/consciousness: patient oriented x3 Limitations: no limitations HEENT: Head: Yes normocephalic and Yes atraumatic Neck: Neck: Yes trachea midline, Yes supple and Yes no JVD Resp: Effort & Inspection: normal respiratory effort Auscultation: clear to auscultation bilaterally Cardio: Jugular venous distension: no JVD Palpation: normal PMI Rate: regular rate Rhythm: regular rhythm Heart sounds: S1 normal heart sound present, S2 normal heart sound present, no click, no gallops, no murmurs and no rubs GI: Auscultation: normal bowel sounds Skin: General skin exam: no rashes or lesions noted Neuro: General: patient oriented x3 and no focal motor deficits Extrem: General: Yes no clubbing, cyanosis or edema Psych: Appearance: grossly normal Objective Labs and Meds 04/29/23 20:37 04/30/23 06:49 Lab results: Laboratory Results - last 24 hr 04/29/23 04/29/23 04/29/23 20:37 20:37 20:37 WBC 7.5 RBC 4.22 L Hgb 12.0 L Hct 35.4 L MCV 83.9 MCH 28.4 MCHC 33.9 RDW 12.7 Plt Count 231 MPV 10.7 Immature Gran % (Auto) 0.3 Neut % (Auto) 52.9 Lymph % (Auto) 35.4 [place] % (Auto) 7.8 Eos % (Auto) 3.1 Baso % (Auto) 0.5 Lymph # (Auto) 2.6 [place] # (Auto) 0.6 Eos # (Auto) 0.2 Baso # (Auto) 0.0 Abs Immat Gran (auto) 0.02 Absolute Neuts (auto) 4.0 Absolute Nucleated RBC 0.000 Nucleated RBC % (auto) 0.0 Sodium 140 Potassium 3.5 Chloride 102 Carbon Dioxide 24 Anion Gap 18 BUN 15 Creatinine 1.50 H Estim Creat Clear Calc 39.9 Estimated GFR 45 POC Glucose Random Glucose 217 H Calcium 9.5 Total Bilirubin AST ALT Alkaline Phosphatase Troponin I High Sens 3.0 Total Protein Albumin Triglycerides Cholesterol LDL Cholesterol, Calc HDL Cholesterol 04/29/23 04/30/23 04/30/23 22:52 00:18 06:49 WBC RBC Hgb Hct MCV MCH MCHC RDW Plt Count MPV Immature Gran % (Auto) Neut % (Auto) Lymph % (Auto) [place] % (Auto) Eos % (Auto) Baso % (Auto) Lymph # (Auto) [place] # (Auto) Eos # (Auto) Baso # (Auto) Abs Immat Gran (auto) Absolute Neuts (auto) Absolute Nucleated RBC Nucleated RBC % (auto) Sodium 141 Potassium 3.2 L Chloride 103 Carbon Dioxide 30 H Anion Gap 11 L BUN 16 Creatinine 1.18 Estim Creat Clear Calc 50.7 Estimated GFR 60 POC Glucose 140 H Random Glucose 139 H Calcium 9.3 Total Bilirubin 0.8 AST 18 ALT 22 Alkaline Phosphatase 56 Troponin I High Sens 3.3 Total Protein 6.5 Albumin 3.8 Triglycerides 143 Cholesterol 218 LDL Cholesterol, Calc 141 HDL Cholesterol 49 04/30/23 07:01 WBC RBC Hgb Hct MCV MCH MCHC RDW Plt Count MPV Immature Gran % (Auto) Neut % (Auto) Lymph % (Auto) [place] % (Auto) Eos % (Auto) Baso % (Auto) Lymph # (Auto) [place] # (Auto) Eos # (Auto) Baso # (Auto) Abs Immat Gran (auto) Absolute Neuts (auto) Absolute Nucleated RBC Nucleated RBC % (auto) Sodium Potassium Chloride Carbon Dioxide Anion Gap BUN Creatinine Estim Creat Clear Calc Estimated GFR POC Glucose 134 H Random Glucose Calcium Total Bilirubin AST ALT Alkaline Phosphatase Troponin I High Sens Total Protein Albumin Triglycerides Cholesterol LDL Cholesterol, Calc HDL Cholesterol EKG shows no acute ST T wave changes with normal sinus rhythm with old inferior infarct Assessment and Plan (1) Chest pain: Qualifiers: Chest pain type: precordial pain Qualified Code(s): R07.2 - Precordial pain Status: Acute patient chest pain is atypical for myocardial ischemia. Most likely related to esophageal spasm with heart food. No evidence of any myocardial injury and no EKG changes suggestive ischemia. Likelihood of acute coronary syndrome is low. Patient can be discharged home on his usual medications. Will set up for follow-up as outpatient as patient wants to follow locally. (2) Coronary artery disease: Qualifiers: Coronary Disease-Associated Artery/Lesion type: [place] artery [place] vs. transplanted heart: [place] heart Associated angina: without angina Qualified Code(s): I25.10 - Atherosclerotic heart disease of [place] coronary artery without angina pectoris Status: Acute CAD with long history with coronary artery bypass grafting in 2019 for exertional fatigue. He has had no recurrent symptoms since then. Continue low-dose aspirin therapy for life. Continue high-intensity statin therapy with target goal LDL closer to 60 mg/dL. Blood pressure is well optimized continue aggressive diabetes management goal hemoglobin A1c less than 7% being pursue 3 our office. Will follow up in the clinic in 4 weeks time. Thank you for allowing me to partake in his care Time Spent With Patient Time: Total time managing care of this patient today ____ minutes. Procedures Date of Service Date of Service: 04/30/23
[2023-04-30 11:12] VITALS: BP 147/69; PULSE 69; RESP 20; TEMP 36.2; O2SAT 95
--- NOTE | 2023-04-30 11:25 | P.DS_ITS ---
DS: Providers Provider Date of Service: 04/30/23 Date of admission: 04/29/23 23:27 Primary care physician: Unknown Physician Consults: 04/29/23 23:27 Consult to Cardiology Routine Consulting Provider: [facility] Reason for consultation: typical cp Has provider been notified: No DS: Diagnosis Discharge Diagnosis (1) Chest pain: Status: Acute (2) Coronary artery disease: Status: Acute DS: Summary Hospital Course Hospital Course: history of presenting illness: Date of Service: 04/29/23 Chief Complaint:? chest pain ?77-year-old male with past medical history of CAD status post quadruple bypass, diabetes, hypertension, iron deficiency anemia, HLD, GERD, presents the hospital with complaints of chest pain.? Patient reports he was watching TV when all the sudden he developed midsternal heavy pressure-like chest pain that lasted about 15-20 minutes,? severe,resolved spontaneously, associated with mild shortness of breath, no palpitations, no nausea vomiting,? no abdominal pain, no diarrhea constipation, no urinary symptoms and no lower extremity edema.? No diaphoresis.? No? fever? or chills.? No urinary symptoms and no lower extremity edema.? ?he reports that he called? EMS, was told to take4? baby aspirin, on arrival of EMS he was given nitroglycerin? sublingual which resolved his symptoms. On arrival to the ED patient hemodynamically stable with no significant abnormal vitals Labs are significant for WBC count 7.5, labs otherwise unremarkable, troponin negative x2 EKG showed normal sinus rhythm, with left axis deviation, With chronic changes given patient's past medical history patient will be admitted for evaluation hospital course: patient admitted to telemetry unit for evaluation of chest pain due to history of coronary artery disease status post quadruple bypass, patient had no recurrent symptoms of chest pain since admission, tele monitor showed no arrhythmia, patient troponin was negative EKG showed no acute ischemic changes, patient noted to have elevated LDL 140, patient chest pain likely was related to GI symptoms, gastritis versus esophageal spasm since symptoms started 1 hour after eating spicy meal without associated diaphoresis, palpitation and no significant shortness of breath patient evaluated by Cardiology and recommended outpatient follow-up his dose of Lipitor has been increased to 80 mg at HS he is recommended to continue aspirin and maintain good blood pressure and blood sugar control. Time Spent with Patient Time attestation: Total time managing care of this patient today ____ minutes. Discharge coordination time: Greater than 30 minutes Quality: Safe Use of Opioids Does Pt have an Active Cancer Diagnosis on the Problem List?: No Quality: Stroke Does the patient have a stroke diagnosis?: No Physical Exam Vital Signs: Vital Signs: Last Vital Signs Temp 97.2 F 04/30/23 11:12 Pulse 69 04/30/23 11:12 Resp 20 04/30/23 11:12 BP 147/69 H 04/30/23 11:12 Pulse Ox 95 04/30/23 11:12 O2 Del Method Room Air 04/30/23 11:12 BMI result Body Mass Index 24.8 Const: Other: General Awake alert x3, no acute distress. Neck supple, no JVD. CVS regular rate rhythm, Respiratory lungs clear to auscultation, no respiratory distress, no wheeze, no rhonchi. Gastrointestinal abdomen soft, nontender, bowel sounds audible, no guarding , no rigidity. Extremities no edema. Neuro nonfocal Skin no rash DS: Data Data Completed and Pending Labs on day of discharge: Laboratory Results - last 24 hr 04/29/23 04/29/23 04/29/23 20:37 20:37 20:37 WBC 7.5 RBC 4.22 L Hgb 12.0 L Hct 35.4 L MCV 83.9 MCH 28.4 MCHC 33.9 RDW 12.7 Plt Count 231 MPV 10.7 Immature Gran % (Auto) 0.3 Neut % (Auto) 52.9 Lymph % (Auto) 35.4 Harlan % (Auto) 7.8 Eos % (Auto) 3.1 Baso % (Auto) 0.5 Lymph # (Auto) 2.6 Harlan # (Auto) 0.6 Eos # (Auto) 0.2 Baso # (Auto) 0.0 Abs Immat Gran (auto) 0.02 Absolute Neuts (auto) 4.0 Absolute Nucleated RBC 0.000 Nucleated RBC % (auto) 0.0 Sodium 140 Potassium 3.5 Chloride 102 Carbon Dioxide 24 Anion Gap 18 BUN 15 Creatinine 1.50 H Estim Creat Clear Calc 39.9 Estimated GFR 45 POC Glucose Random Glucose 217 H Calcium 9.5 Total Bilirubin AST ALT Alkaline Phosphatase Troponin I High Sens 3.0 Total Protein Albumin Triglycerides Cholesterol LDL Cholesterol, Calc HDL Cholesterol 04/29/23 04/30/2304/30/23 22:52 00:18 06:49 WBC RBC Hgb Hct MCV MCH MCHC RDW Plt Count MPV Immature Gran % (Auto) Neut % (Auto) Lymph % (Auto) Harlan % (Auto) Eos % (Auto) Baso % (Auto) Lymph # (Auto) Harlan # (Auto) Eos # (Auto) Baso # (Auto) Abs Immat Gran (auto) Absolute Neuts (auto) Absolute Nucleated RBC Nucleated RBC % (auto) Sodium 141 Potassium 3.2 L Chloride 103 Carbon Dioxide 30 H Anion Gap 11 L BUN 16 Creatinine 1.18 Estim Creat Clear Calc 50.7 Estimated GFR 60 POC Glucose 140 H Random Glucose 139 H Calcium 9.3 Total Bilirubin 0.8 AST 18 ALT 22 Alkaline Phosphatase 56 Troponin I High Sens 3.3 Total Protein 6.5 Albumin 3.8 Triglycerides 143 Cholesterol 218 LDL Cholesterol, Calc 141 HDL Cholesterol 49 04/30/23 07:01 WBC RBC Hgb Hct MCV MCH MCHC RDW Plt Count MPV Immature Gran % (Auto) Neut % (Auto) Lymph % (Auto) Harlan % (Auto) Eos % (Auto) Baso % (Auto) Lymph # (Auto) Harlan # (Auto) Eos # (Auto) Baso # (Auto) Abs Immat Gran (auto) Absolute Neuts (auto) Absolute Nucleated RBC Nucleated RBC % (auto) Sodium Potassium Chloride Carbon Dioxide Anion Gap BUN Creatinine Estim Creat Clear Calc Estimated GFR POC Glucose 134 H Random Glucose Calcium Total Bilirubin AST ALT Alkaline Phosphatase Troponin I High Sens Total Protein Albumin Triglycerides Cholesterol LDL Cholesterol, Calc HDL Cholesterol Discharge Plan Discharge Anticipated Discharge Date/Time: 04/30/23 11:19 Patient Disposition: Home, Self-Care Discharge Diagnosis: chest pain Referrals: Physician,Unknown J [Primary Care Provider] - 1 Week Discharge Medications: New atorvastatin [Lipitor] 80 mg tablet 80 mg PO BEDTIME Qty: 30 0RF potassium chloride 20 mEq tablet extended release 20 meq PO DAILY Qty: 30 0RF Continued (DME) blood sugar diagnostic Strip See Rx Instructions .ROUTE .MEDSUPPLY Qty: 10 Rx Instructions: As directed ascorbic acid (vitamin C) [Vitamin C] 500 mg tablet 500 mg PO BID 90 Days Qty: 180 3RF omeprazole 20 mg capsule,delayed release(DR/EC) 20 mg PO QAM Qty: 90 2RF metformin 500 mg tablet 1,000 mg PO BIDWMEAL 90 Days Qty: 360 3RF (DME) walking cane See Rx Instructions .Route .MEDSUPPLY Qty: 1 0RF Rx Instructions: As directed furosemide [Lasix] 40 mg tablet 40 mg PO BID 90 Days Qty: 180 2RF glipizide 5 mg tablet extended release 24hr 5 mg PO DAILY Qty: 90 1RF finasteride [Proscar] 5 mg tablet 5 mg PO DAILY 90 Days Qty: 90 2RF isosorbide mononitrate 30 mg tablet extended release 24 hr 1 tab PO DAILY Trulicity 1.5 mg/0.5 mL pen injector 1.5 mg subcut FR gabapentin 100 mg capsule 100 mg PO BEDTIME PRN (Reason: Pain) cholecalciferol (vitamin D3) 25 mcg (1,000 unit) tablet 25 mcg PO DAILY aspirin 81 mg tablet,delayed release (DR/EC) 81 mg PO DAILY magnesium oxide 400 mg magnesium tablet 400 mg PO DAILY vitamin E (dl, acetate) 100 unit capsule 100 unit PO DAILY (DME) blood sugar diagnostic Strip See Rx Instructions .ROUTE .MEDSUPPLY Qty: 2 3RF Rx Instructions: As directed check blood sugar 2 times a day (DME) OneTouch Ultra Test Strip See Rx Instructions .Route Qty: 2 3RF Rx Instructions: As directed check bs BID metoprolol tartrate 25 mg tablet 25 mg PO TID 90 Days Qty: 270 2RF simethicone [Gas Relief (simethicone)] 125 mg tablet,chewable 125 mg PO BID-QID PRN (Reason: abdominal distention) Qty: 20 0RF cyclobenzaprine 10 mg tablet 10 mg PO BEDTIME PRN (Reason: muscle spasm) Qty: 14 0RF Discontinued atorvastatin 40 mg tablet 40 mg PO DAILY Qty: 90 2RF Discharge Orders: Discharge Order (Routine); Ordered 04/30/23 Ordered By: Veronica Vieyra Diet: Diabetic diet Activity on Discharge: As tolerated Stand Alone Forms: Patient Portal Discharge page Care Plan Goals: follow low fat diet, dose of Lipitor increased to 80 mg at bedtime due to elevated LDL started on low-dose potassium 20 mEq daily due to low potassium Health Concerns: need good blood pressure, blood sugar and cholesterol control Plan of Treatment: outpatient follow-up with field party manager Dr. Cherrie, call for appointment and, follow-up with PCP Assessment: as above.
[2023-04-30 11:33] LABS: Glucose, Whole Blood 193 mg/dL (60-115)
--- NOTE | 2023-04-30 15:05 | MHC.CM.PN ---
ELYSSA 04/30/23, EMR REVIEWED, PT ADMITTED W/CHEST PAIN, cm met w/pt who reports he lives w/dtr, reports he is indep w/care and the [facility] dme is diabetic supplies, no services and pt declines need for home services. Pt verifies pcp is Aaron Collazo, pfizer x3 and HCP is anderson Mukherjee, copy requested. Pt discharged home self-care wl dtr for transport.
== END 2023-04-30 12:09 | disposition home or self-care (01) ==
LOC: HO.ED 21:28 → HO.EDOVER 23:59 → HO.IMC 04-30 03:22
PROVIDERS: Admitting Provider Internal Medicine; Emergency Provider Internal Medicine; Visit Provider Hospitalist
DX: R07.2 Precordial pain (principal); E11.9 Type 2 diabetes mellitus without complications; I10 Essential (primary) hypertension; E78.5 Hyperlipidemia, unspecified; R06.02 Shortness of breath; Z95.1 Presence of aortocoronary bypass graft; Z79.82 Long term (current) use of aspirin; Z79.899 Other long term (current) drug therapy; Z79.02 Long term (current) use of antithrombotics/antiplatelets; Z79.85 Long-term (current) use of injectable non-insulin antidiabetic drugs; Z79.84 Long term (current) use of oral hypoglycemic drugs; Z87.891 Personal history of nicotine dependence
CPT/HCPCS: 36415; 80048; 80053; 80061; 82947; 84484; 85025; 93005; 99222; 99285

== ENCOUNTER → 2023-05-30 09:34 | Outpatient (REF) | payer OTHER, SELFPAY ==
--- NOTE | ~2023-05-30 | NM_ITS ---
Myocardial perfusion study Indication: Precordial chest pain to evaluate for myocardial ischemia Technique: The patient was brought in for a Lexiscan perfusion study on 05/30/2023. Patient performed low-level exercise and was injected 0.4 mg of Lexiscan intravenously. Within a minute of injection, 25 mCi of sestamibi was given intravenously. Images were obtained using the SPECT gamma camera interlaced with the gating device. Images were obtained in supine position. Resting perfusion study was performed on 06/03/2023. Patient was administered 25 mCi of sestamibi intravenously at rest. Images were then obtained in supine position. Images obtained with and without CT attenuation. Total DLP 89 mGy-cm. Images were processed with the software and compared side to side in short axis, horizontal long axis and vertical long axis views. Findings: The stress perfusion study showed non attenuated images show mildly reduced uptake in the basal inferior wall of the LV myocardium. Remainder of the LV myocardium is normally perfused. Attenuation corrected images show normal uptake of radiotracer in all segments of LV myocardium. The gated study shows normal LV systolic function with calculated LVEF of 69%. LV cavity is normal in size. The gated study shows normal systolic wall thickening and contraction of segments. Resting study shows no change in perfusion pattern compared to stress perfusion study. Gating at rest reveals normal systolic wall motion with ejection fraction at 61%. The findings are consistent with normal myocardial perfusion. NM/NM rafael perf SPECT rest & str Impression: 1. Myocardial perfusion imaging study shows normal myocardial perfusion 2. Gated LVEF is 69% 3. Transient ischemic dilatation not present EKG is nondiagnostic for ischemia
--- NOTE | 2023-05-30 09:38 | CA_ITS ---
Acquisition Time: 2023-05-30 10:07:45 Total Exercise Time: 00:02:00 Test Indications: CP Medications: METFORMIN METOPROLOL ASA Protocol: LEXISCAN Max HR: 092 BPM 65% of Pred: 141 BPM Max BP: 140/080 mmHG Max Work Load: 1.0 METS Pharmacological stress test with Lexiscan injection while sitting and kicking his legs, without anginal symptoms, without arrhythmias, with normotensive repsonse to injection, with non-diagnostic EKGs. Nuclear images pending. Test reviewed with Dr. Grier Referred By: Crow Grier Overread By: Salome Lane
== END ==
LOC: HO.CARD 09:34
PROVIDERS: PCP Internal Medicine; Visit Provider Internal Medicine Cardiovascular Disease
DX: R07.2 Precordial pain (principal); I25.10 Atherosclerotic heart disease of native coronary artery without angina pectoris; I73.9 Peripheral vascular disease, unspecified
CPT/HCPCS: 78452; 93017; A9500; J0280; J2785

== ENCOUNTER → 2023-05-30 10:12 | Outpatient (BNV) | payer OTHER, SELFPAY | PROVIDERS: PCP Internal Medicine; Visit Provider Internal Medicine Cardiovascular Disease | DX: R07.2 Precordial pain (principal) | CPT/HCPCS: 78452; 93016; 93018 ==

== ENCOUNTER → 2023-06-12 10:48 | Outpatient (REF) | payer OTHER, SELFPAY ==
--- NOTE | 2023-06-12 10:50 | CA_ITS ---
Transthoracic Echocardiogram Patient (Last, First, Middle): Calderon Crowley A Gender: Male Date of : 1945 Age: 77 Procedure Date: 06/12/2023 Procedure Type: Transthoracic Echocardiogram Location: OP Height: 175.26 cm Weight: 76.66 kg BSA: 1.92 m2 Heart Rate: 68 bpm BP: 140 / 70 mmHg Playground Official: ELISA Referring MD: Crow Grier MD Commercial Litigation Attorney: Crow Grier MD Symptoms: R07.2 - Precordial pain Study Quality: Adequate ECG Rhythm: Sinus Conclusions: - 1. Normal LV ejection fraction 55-60% with impaired relaxation filling pattern with underlying wall motion abnormality consistent with coronary artery disease 2. Fibrocalcific aortic valve changes noted with normal cardiac valvular Dopplers 3. Upper limits of normal ascending aortic size 4. No gross pericardial effusion Findings Left Ventricle Normal left ventricular size, thickness, and systolic function. The visually estimated ejection fraction is between 55-60%. Spectral Doppler is indicative of an impaired relaxation filling pattern. E/E prime ratio is between 8 and 15 consistent with indeterminate filling pressures. Wall Motion Rest Echo Findings The basal inferior and basal inferoseptal segments are hypokinetic. All other scored wall segments showed normal motion. Right Ventricle Normal right ventricular cavity size. TAPSE is significantly reduced Atria The left atrium is likely dilated. There is no evidence of interatrial shunt. The right atrium is normal in size. Aortic Valve There is mild calcification of the aortic valve. There is mild thickening of the aortic valve. There is no aortic valve stenosis. There is no aortic valve regurgitation. Mitral Valve There is mild anterior and posterior mitral leaflet thickening. There is trace mitral valve regurgitation. There is no mitral valve stenosis. Pulmonic Valve The pulmonic valve was not well visualized. Tricuspid Valve Likely normal tricuspid valve structure and function. Tricuspid regurgitation envelope is inadequate for calculation of right ventricular systolic pressure. Great Vessels The pulmonary artery was not well visualized. Venous The inferior vena cava was not well visualized. Pericardium/Pleural There is no evidence of pericardial effusion. Prior Study Comparison no previous study in the last 5 years for comparison Measurements 2D Linear Measurements IVSd: 1.10 0.6-0.9/0.6-1.0 cm LVIDd: 4.10 3.9-5.3/4.2-5.9 cm LVIDd Index: 2.14 2.4-3.2/2.2-3.1 cm/m2 LVIDs: 2.60 2.0-3.6 cm LVPWd: 1.00 0.7-1.1 cm LA Diam: 3.60 2.7-3.8/3.0-4.0 cm LAIDs Index: 1.88 1.5-2.3 cm/m2 LV Mass: 213.93 67-162/88-224 g LV Mass Index: 111.42 43-95/49-115 g/m2 LVOT Diam: 2.50 3.0+(-)1.3 cm 2D Systolic Function EF 4C: 58.80 >55% EF 2C: 60.00 >55% EF BiP: 58.80 >55% Mitral Valve MV Pk E: 0.45 MV PK A: 0.85 MV Decel Time: 411.00 E/A: 0.50 E'Lateral: 8.16 E'Medial: 3.37 E/E' Med: 13.50 E/E' Lat: 5.60 PHT: 120.00 MVA PHT: 1.83 Decel [place]: 1.11 Aortic Valve AoV Pk Olu: 1.35 AoV Mn Olu: 0.99 AoV VTI: 0.28 AoV Pk Grad: 7.00 Aov Mn Grad: 4.00 REBECCA Cont.VTI: 2.73 LVOT LVOT Pk Olu: 0.78 LVOT Mn Olu: 0.54 LVOT VTI: 0.16 LVOT Pk Grad: 2.00 LVOT Mn Grad: 1.00 LVOT Diam: 2.50 LVOT Area: 4.91 Diastolic Function MV Pk E: 0.45 MV Pk A: 0.85 E/A: 0.50 E'Medial: 3.37 E/E' Med: 13.50 E' Laterial: 8.16 E/E' Lat: 5.60 Right Ventricle TAPSE (mm): 7.73 TVS' Olu: 6.53 Great Vessels Aorta Sinus of Valsalva: 3.40 2.0-3.5 cm Ao Asc: 3.60 2.1-3.4 cm Pulmonary Valve PV Pk Olu: 1.06 Peak PV Grad: 4.00 Updated in Other Vendor System with Status of Final Crow Grier MD electronically signed on 06/13/2023 11:14:45 AM with status of Final
== END ==
LOC: HO.CARD 10:48
PROVIDERS: PCP Internal Medicine; Visit Provider Internal Medicine Cardiovascular Disease
DX: R07.2 Precordial pain (principal); I25.10 Atherosclerotic heart disease of native coronary artery without angina pectoris; I73.9 Peripheral vascular disease, unspecified
CPT/HCPCS: 93306

== ENCOUNTER → 2023-06-12 10:50 | Outpatient (BNV) | payer OTHER, SELFPAY | PROVIDERS: PCP Internal Medicine; Visit Provider Internal Medicine Cardiovascular Disease | DX: I35.8 Other nonrheumatic aortic valve disorders (principal) | CPT/HCPCS: 93306 ==

== ENCOUNTER 2023-07-07 09:32 | Outpatient (AMB) | payer OTHER, SELFPAY ==
[2023-07-07 09:46] VITALS: BP 122/60; PULSE 80; BMI 25.9
--- NOTE | 2023-07-07 09:46 | A.OFFVIS_ITS ---
Intake Vital Signs 07/07/23 09:46 Height 5 ft 7 in Weight 165 lb 5.547 oz BMI 25.9 BP 122/60 Blood Pressure Location Lt brachial Position Sitting Pulse 80 Pulse Source Pulse Oximeter Intake Visit Reasons: s/p HMC/ echo/ stress NS Intake Note: s/p HMC/ Echo/stress Ns Conference Producer Required: No Allergies lisinopril Allergy (Mild, Verified 07/07/23 09:51) Cough Penicillins Allergy (Mild, Verified 07/07/23 09:51) RASH linagliptin [Tradjenta] Adverse Reaction (Mild, Verified 07/07/23 09:51) diarrhea Medication List - Last Reconciled 07/07/23 by GENIA House ascorbic acid (vitamin C) (Vitamin C) 500 mg PO BID 90 days aspirin 81 mg PO DAILY atorvastatin (Lipitor) 80 mg PO BEDTIME blood sugar diagnostic As directed blood sugar diagnostic ([employer] Ultra Test strips) As directed check bs BID blood sugar diagnostic As directed check blood sugar 2 times a day cholecalciferol (vitamin D3) 25 mcg PO DAILY cyclobenzaprine 10 mg PO BEDTIME PRN dulaglutide (Trulicity) 1.5 mg subcut FR empagliflozin (Jardiance) 10 mg PO DAILY finasteride (Proscar) 5 mg PO DAILY 90 days furosemide (Lasix) 40 mg PO BID 90 days gabapentin 100 mg PO BEDTIME PRN glipizide ER 5 mg PO DAILY isosorbide mononitrate ER 1 tab PO DAILY magnesium oxide 400 mg PO DAILY metformin 1,000 mg (2 x 500 mg) PO BIDWMEAL 90 days metoprolol tartrate 25 mg PO TID 90 days omeprazole 20 mg PO QAM potassium chloride ER 20 mEq PO DAILY simethicone (Gas Relief (simethicone)) 125 mg PO BID-QID PRN vitamin E (dl, acetate) 100 units PO DAILY [walking cane As directed] HPI s/p HMC/ echo/ stress NS HPI Details Calderon is a 77-year-old male with past medical history of hyperlipidemia, diabetes, peripheral vascular disease, coronary artery disease with coronary stents followed by coronary artery bypass grafting 3.5 years ago who was recently admitted to [facility] for chest discomfort and ruled out for ACS. Outpatient echocardiogram and nuclear stress test were ordered. Today he reports that he has been doing well since his hospital discharge. He stopped eating all spicy foods and his prior chest discomfort has fully resolv ed. He believes now that he was getting reflux from eating spicy peppers. He denies any concerning symptoms presently. No chest discomfort, shortness of breath, palpitations, dizziness, presyncope, syncope, PND, orthopnea or edema. He reports good activity tolerance. Compliant with all medications with the exception of atorvastatin. He tells me the pills are too large for him to swallow. He previously had been following with [facility] after Dr. Will is prison and now is switching to this office. [facility] Medical History (Updated 07/07/23 @ 11:16 by Scarlet Sevilla, MARY-C) Acute bronchitis Adrenal adenoma BPH (benign prostatic hyperplasia) Burning chest pain Chest pain Constipation Coronary artery disease Fatty liver Foul smelling urine GERD (gastroesophageal reflux disease) Headache HTN (hypertension) Hypercholesterolemia Iron deficiency anemia Left shoulder pain Overweight (BMI 25.0-29.9) Renal calculi Sciatic nerve palsy, left Type 2 diabetes mellitus with hyperglycemia Weight loss Surgical History H/O colonoscopy History of arthroscopy of left shoulder History of esophagogastroduodenoscopy (EGD) History of nephrolithiasis History of prostate surgery History of tonsillectomy History of transurethral resection of prostate Hx of hand surgery Hx of heart artery stent 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) Family History Father Diabetes Hypertension CVD (cardiovascular disease) Mother Diabetes Social History Household Members: Family Housing: House Are you a primary campground caretaker to a significant other at home: No Do you presently have visiting nurse or other home services: No Alcohol intake: never Patient Tobacco Use Status: Former Tobacco user Tobacco use type: Cigarette Cigarette Packs Per Day: 1.5 e-Cigarette/Vaping Use: Never Used Second Hand Smoke Exposure: No service: No Current occupational status: retired Cognitive needs: Yes (cane) Hearing needs: No Vision needs: Yes (perscription glasses) Review of Systems Const All systems reviewed & are unremarkable except as noted in HPI and below ENT Reports dizziness Card Denies chest pain, Denies chest pain at rest, Denies chest pain with activity, Denies rapid heart rate, Denies pedal edema, Denies edema, Denies leg edema, Denies lightheadedness, Denies palpitations, Denies dyspnea, Denies dyspnea on exertion and Denies orthopnea Resp Denies cough, Denies dyspnea and Denies dyspnea on exertion GI Denies hematochezia and Denies change in stool character Musc Denies abnormal gait, Reports limited range of motion, Reports muscle cramps, Denies muscle weakness, Denies numbness, Denies radiating pain into limb, Denies stiffness and Denies tingling Neuro Denies abnormal gait, Reports dizziness, Denies numbness and Denies tingling Endo Denies palpitations Physical Exam Vital Signs: Last Vital Signs Pulse 80 07/07/23 09:46 BP 122/60 07/07/23 09:46 BMI result Body Mass Index 25.9 Const General: cooperative, healthy appearing, comfortable and no acute distress Orientation/consciousness: patient oriented x3 Neck Neck: Yes normal visual inspection Resp Effort & Inspection: normal respiratory effort Auscultation: clear to auscultation bilaterally, no crackles, no rales, no rhonchi and no wheezes Cardio Jugular venous distension: no JVD Rate: regular rate Rhythm: regular rhythm Heart sounds: S1 normal heart sound present, S2 normal heart sound present, no gallops, no murmurs and no rubs Neuro General: patient oriented x3 Extrem General: Yes normal to inspection, No no pedal edema and No calf tenderness Psych Appearance: grossly normal Mental Status: mental status grossly normal Speech and movement: Normal speech and movement present Assessment & Plan Assessment & Plan (1) Chest pain: Code(s): R07.9 - Chest pain, unspecified Qualifiers: Chest pain type: precordial pain Qualified Code(s): R07.2 - Precordial pain Plan: Recent [facility] admission for chest discomfort and ruled out for ACS. His chest discomfort was atypical and most likely GI in nature related to eating spicy foods. He had outpatient nuclear stress test done 06/03/2023 showing normal myocardial perfusion imaging. An echocardiogram done 06/12/2023 showed EF 55- 60%, with regional wall motion abnormality consistent with CAD, basal inferior and basal inferior septum hypokinesis. Known history of CAD with prior Coronary artery bypass grafting. Today he reports that he stopped eating spicy foods and no longer has chest discomfort. Signs and symptoms of angina reviewed with him. Continue cardiac risk factor modification with LDL goal less than 70, hemoglobin A1c goal less than 7. Continue aspirin indefinitely, high-dose atorvastatin, isosorbide and metoprolol. Cardiology follow-up in 6 months, sooner if needed (2) Coronary artery disease: Comment: nuclear stress June 2019 in failure lateral hypokinesis ejection fraction 55% CABG August [address] Rhodes Code(s): I25.10 - Atherosclerotic heart disease of [place] coronary artery without angina pectoris Qualifiers: Coronary Disease-Associated Artery/Lesion type: [place] artery [place] vs. transplanted heart: [place] heart Associated angina: without angina Qualified Code(s): I25.10 - Atherosclerotic heart disease of [place] coronary artery without angina pectoris Plan: As above. Had been following with Dr. Cabrera then following his prison he was seen at [facility]. He is now switching to this office with Dr. Grier as his primary cover inspector. (3) Type 2 diabetes mellitus with hyperglycemia: Comment: [facility] Eye exam Code(s): E11.65 - Type 2 diabetes mellitus with hyperglycemia Qualifiers: Diabetes mellitus senior living insulin use: without watermaster use Qualified Code(s): E11.65 - Type 2 diabetes mellitus with hyperglycemia (4) Hypercholesterolemia: Code(s): E78.00 - Pure hypercholesterolemia, unspecified Plan: [place] LDL goal less than 70. Labs done 04/30/2023 shows LDL 141. At that time he was started on atorvastatin 80 mg daily. He tells me he is not able to swallow the pills as they are too large. Will stop atorvastatin and change to rosuvastatin which I believe is a smaller pill size. Fasting lipids in 2-3 months. The importance of good cholesterol control reviewed with him. (5) Hospital discharge follow-up: Code(s): Z09 - Encounter for follow-up examination after completed treatment for conditions other than malignant neoplasm Orders: Orders Lipid Panel 2 Months I25.10 - Atherosclerotic heart disease of [place] coronary artery without angina pectoris Medications: New rosuvastatin 40 mg PO DAILY 30 tabs 5RF Discontinued atorvastatin (Lipitor) Discontinued Reason: Doctor's Order 80 mg PO BEDTIME 30 tabs 0RF gabapentin 100 mg PO BEDTIME 30 caps 3RF I73.9 - Peripheral vascular disease, unspecified Coding Level of Care Code Est Pt Level 4 (74598) Diagnoses Chest pain R07.2 Chest pain type: precordial pain Coronary artery disease I25.10 Coronary Disease-Associated Artery/Lesion type: [place] artery [place] vs. transplanted heart: [place] heart Associated angina: without angina Type 2 diabetes mellitus with hyperglycemia E11.65 Diabetes mellitus watermaster insulin use: without senior living use Hypercholesterolemia E78.00 Hospital discharge follow-up Z09 Time Spent (min) 26 Comment Chart review, documentation, interview, assessment
== END 2023-07-07 10:23 | disposition home or self-care (01) ==
PROVIDERS: PCP Internal Medicine; Referring Provider Internal Medicine; Visit Provider Nurse Practitioner Family
DX: R07.2 Precordial pain (principal); I25.10 Atherosclerotic heart disease of native coronary artery without angina pectoris; E11.65 Type 2 diabetes mellitus with hyperglycemia; E78.00 Pure hypercholesterolemia, unspecified; Z09 Encounter for follow-up examination after completed treatment for conditions other than malignant neoplasm
CPT/HCPCS: 99214

== ENCOUNTER → 2023-07-07 09:32 | Outpatient (BNVA) | payer OTHER, SELFPAY | PROVIDERS: PCP Internal Medicine; Referring Provider Internal Medicine; Visit Provider Nurse Practitioner Family | DX: R07.2 Precordial pain (principal); I25.10 Atherosclerotic heart disease of native coronary artery without angina pectoris; I10 Essential (primary) hypertension; I73.9 Peripheral vascular disease, unspecified; E11.65 Type 2 diabetes mellitus with hyperglycemia; E78.00 Pure hypercholesterolemia, unspecified; Z95.5 Presence of coronary angioplasty implant and graft; Z95.1 Presence of aortocoronary bypass graft; Z79.85 Long-term (current) use of injectable non-insulin antidiabetic drugs; Z09 Encounter for follow-up examination after completed treatment for conditions other than malignant neoplasm | CPT/HCPCS: 99212 ==

== ENCOUNTER 2023-07-08 13:58 | Outpatient (AMB) | payer OTHER, SELFPAY ==
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
[2023-07-08 14:05] VITALS: BP 108/64; PULSE 88; O2SAT 96; BMI 25.5
== END 2023-07-08 14:57 | disposition home or self-care (01) ==
PROVIDERS: PCP Internal Medicine; Visit Provider Physician Assistant
DX: M54.12 Radiculopathy, cervical region (principal); E11.65 Type 2 diabetes mellitus with hyperglycemia
CPT/HCPCS: 83036; 99213

== ENCOUNTER 2023-07-14 15:59 | Emergency (ER) | payer OTHER, SELFPAY ==
--- NOTE | ~2023-07-14 | XR_ITS ---
EXAMINATION: XR CHEST CLINICAL INFORMATION: Chest pain. COMPARISON: 02/19/2023 chest and rib radiographs. TECHNIQUE: Frontal view of the chest was obtained. FINDINGS: No significant abnormality is noted involving the heart, lungs, mediastinum, bony thorax or soft tissues. Multilevel sternotomy wires are intact. XR/XR chest 1V IMPRESSION: No acute cardiopulmonary process.
[2023-07-14 16:01] VITALS: BP 145/87; PULSE 81; RESP 16; TEMP 36.7; O2SAT 98; BMI 24.4
--- NOTE | 2023-07-14 16:01 | ECG_ITS ---
Test Reason : CHEST PAIN Blood Pressure : / mmHG Vent. Rate : 084 BPM Atrial Rate : 084 BPM P-R Int : 162 ms QRS Dur : 086 ms QT Int : 364 ms P-R-T Axes : 017 -30 -22 degrees QTc Int : 430 ms Normal sinus rhythm Left axis deviation Minimal voltage criteria for LVH, may be normal variant ( R in aVL ) Inferior infarct (cited on or before 19-FEB-2023) Abnormal ECG When compared with ECG of 29-APR-2023 20:44, Inverted T waves have replaced nonspecific T wave abnormality in Anterior leads Referred By: Ranjan Contreras Electronically Signed By:GUILLE MAK
--- NOTE | 2023-07-14 16:04 | ED.GENADULT ---
HPI - General Adult General Chief complaint: Chest Pain Stated complaint: chest pain Time Seen by Provider: 07/14/23 16:32 Source: patient and family (Daughter) Mode of arrival: ambulatory Limitations: no limitations History of Present Illness HPI narrative: 77-year-old male with history of DM, quadruple coronary vessel bypass 4 years ago presented for evaluation of epigastric pain. This started last night when patient eat homemade beans with pig legs seem to the patient it was undercooked shortly after he ate his started to have nausea and vomiting then followed by diarrhea patient could not sleep well last night because of the diarrhea, this morning started to have epigastric discomfort associated with nausea, patient also felt discomfort into the Jaws bilaterally started about 45 minutes before coming to the hospital pain was constant for about 45 minutes then start to improve while he is in the emergency department, declined diaphoresis, SOB. Patient has a slight epigastric discomfort now. No lower extremity swelling, no recent travel, no prolonged immobilization, no history of PE or DVT. Related Data Home Medications Medication Instructions Recorded Confirmed aspirin 81 mg tablet,delayed 81 mg PO DAILY 09/13/20 07/07/23 release cholecalciferol (vitamin D3) 25 25 mcg PO DAILY 09/13/20 07/07/23 mcg (1,000 unit) tablet magnesium oxide 400 mg PO DAILY 09/13/20 07/07/23 vitamin E (dl, acetate) 45 mg (100 100 unit PO DAILY 09/13/20 07/07/23 unit) capsule blood sugar diagnostic #10 ea 01/08/21 07/07/23 isosorbide mononitrate 30 mg 1 tab PO DAILY 07/09/22 07/07/23 tablet,extended release 24 hr dulaglutide 1.5 mg/0.5 mL 1.5 mg subcut FR 04/30/23 07/07/23 subcutaneous pen injector (Trulicity) gabapentin 100 mg capsule 100 mg PO BEDTIME PRN Pain 04/30/23 07/07/23 Previous Rx's Medication Instructions Recorded ascorbic acid (vitamin C) 500 mg 500 mg PO BID 90 days #180 tabs 07/19/21 tablet (Vitamin C) blood sugar diagnostic #2 boxes 07/08/22 blood sugar diagnostic (OneTouch #2 boxes 09/19/22 Ultra Test strips) omeprazole 20 mg capsule,delayed 20 mg PO QAM #90 caps 10/29/22 release metformin 500 mg tablet 1,000 mg PO BIDWMEAL 90 days #360 11/03/22 tabs furosemide 40 mg tablet (Lasix) 40 mg PO BID 90 days #180 tabs 12/05/22 walking cane #1 ea 12/05/22 glipizide 5 mg tablet, extended 5 mg PO DAILY #90 tabs 02/04/23 release 24 hr metoprolol tartrate 25 mg tablet 25 mg PO TID htn 90 days #270 tabs 02/06/23 simethicone 125 mg chewable tablet 125 mg PO BID-QID PRN abdominal 02/06/23 (Gas Relief (simethicone)) distention #20 tabs cyclobenzaprine 10 mg tablet 10 mg PO BEDTIME PRN muscle spasm 04/10/23 #14 tabs finasteride 5 mg tablet (Proscar) 5 mg PO DAILY prostate 90 days #90 04/15/23 tabs potassium chloride 20 mEq 20 meq PO DAILY #30 tabs 04/30/23 tablet,extended release empagliflozin 10 mg tablet 10 mg PO DAILY #30 tabs 05/12/23 (Jardiance) rosuvastatin 40 mg tablet 40 mg PO DAILY #30 tabs 07/07/23 Allergies Allergy/AdvReac Type Severity Reaction Status Date / Time lisinopril Allergy Mild Cough Verified 07/08/23 14:09 Penicillins Allergy Mild RASH Verified 07/08/23 14:09 linagliptin [Tradjenta] AdvReac Mild diarrhea Verified 07/08/23 14:09 Review of Systems Review of Systems: All other systems are reviewed and are negative Constitutional: Reports as per HPI and Reports no additional constitutional complaints Eyes: Reports as per HPI and Reports no additional eye complaints Reports system reviewed and no additional complaints, except as documented Cardiovascular: Reports as per HPI and Reports no additional cardiovascular complaints Respiratory: Reports as per HPI and Reports no additional respiratory complaints Gastrointestinal: Reports as per HPI and Reports no additional gastrointestinal complaints Genitourinary: Reports no additional female genitourinary complaints Musculoskeletal: Reports no additional musculoskeletal complaints Skin/Breast: Reports system reviewed and no additional complaints, except as docu Psychiatric: Reports no additional psychiatric complaints Endocrine: Reports no additional endocrine complaints Hematologic/Lymphatic: Reports no additional hematologic/lymphatic complaints Allergic/Immunologic: Reports no additional allergic/immunologic complaints Reports system reviewed and no additional complaints, except as documented and Reports Abnormal speech present [facility] Past Medical History Medical History Acute bronchitis Adrenal adenoma BPH (benign prostatic hyperplasia) Burning chest pain Chest pain Constipation Coronary artery disease Fatty liver Foul smelling urine GERD (gastroesophageal reflux disease) Headache HTN (hypertension) Hypercholesterolemia Iron deficiency anemia Left shoulder pain Overweight (BMI 25.0-29.9) Renal calculi Sciatic nerve palsy, left Type 2 diabetes mellitus with hyperglycemia Weight loss Surgical History H/O colonoscopy History of arthroscopy of left shoulder History of esophagogastroduodenoscopy (EGD) History of nephrolithiasis History of prostate surgery History of tonsillectomy History of transurethral resection of prostate Hx of hand surgery Hx of heart artery stent 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) Family History Family History Father Diabetes Hypertension CVD (cardiovascular disease) Mother Diabetes Social History Social History Household Members: Family Housing: House Are you a primary career and guidance counselor to a significant other at home: No Do you presently have visiting nurse or other home services: No Alcohol intake: never Patient Tobacco Use Status: Former Tobacco user Tobacco use type: Cigarette Cigarette Packs Per Day: 1.5 e-Cigarette/Vaping Use: Never Used Second Hand Smoke Exposure: No Advance Directives: No Advance Directives Information Provided: Yes service: No Current occupational status: retired Cognitive needs: Yes (cane) Hearing needs: No Vision needs: Yes (perscription glasses) Physical Exam ED Vital Signs: Vital Signs - 24 hr 07/14/23 16:01 07/14/23 16:42 07/14/23 18:20 Temperature 98.0 F Pulse Rate 81 84 Respiratory Rate 16 18 18 Blood Pressure 145/87 H 145/74 H Pulse Oximetry 98 98 Oxygen Delivery Method Room Air Room Air 07/14/23 20:14 Temperature 98 F Pulse Rate 77 Respiratory Rate 18 Blood Pressure 130/61 Pulse Oximetry 95 Oxygen Delivery Method Room Air BMI result Body Mass Index 24.4 Vital signs have been reviewed as appeared to be correct. Blood pressure normal. Heart rate normal. Respiration rate normal. Temperature normal. Oxygen saturation normal. Appearance: Alert. Oriented X3. No acute distress. Head: Normal external exam. Normocephalic. Atraumatic. No Velasquez signs noted. No raccoon eyes noted Eyes: PERRLA. EOMI. Conjunctiva and sclera normal. Eyelids normal. ENT: TM's Normal. Pharynx normal. Uvula midline. Moist mucous membranes. No trismus noted. No drooling noted. No muffled voice noted. Neck: Normal inspection. Neck supple. FROM. No adenopathy. Thyroid Normal. No meningeal signs. No neck mass noted. CVS: Normal heart rate and rhythm. Heart sound normal. No murmurs noted. Pulses normal throughout. Respiratory: No respiratory distress. Painless inspiration. Breath sounds normal. No wheezes/rales/rhonchi noted. Chest nontender. No accessory muscle usage noted or decreased air movement noted. Abdomen: Soft, mild epigastric tenderness, no rebound tenderness, no guarding. Bowel sounds normal in all 4 quadrants. No distention noted. No organomegaly noted. No visible injury noted. Back: No CVA tenderness. Full range of motion noted. Skin: Skin warm and dry. Normal skin color. Normal skin turgor. No rashes/lesions/lacerations noted. Extremities: No lower extremity edema. Extremities exhibit normal range of motion. Extremities nontender. Neuro: Oriented X 3. Cranial nerve exam: II-XII are grossly intact No motor deficit. No sensory deficit. Reflexes normal. Course Course Course Narrative: This is an RME: Additional HPI, ROS, PE not included below will be deferred to primary provider. 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 Plan, ekg, labs Reevaluation(s) Reevaluation #1: A 77-year-old male came in after having epigastric pain after eating beans with big legs that the patient felt it is undercooked caused him to have nausea and vomiting and diarrhea and epigastric pain, because the patient history of coronary artery disease had EKG which was nonischemic with 2- troponin, patient now feels better, no abdominal pain, no chest pain no shortness of breath with unremarkable workup and chest x-ray. Will reassure. Time: 20:48 Medications Administered Discontinued Medications Generic Name Dose Route Start Last Admin Trade Name Maury PRN Reason Stop Dose Admin Al Hydroxide/Mg Hydroxide 30 ml 07/14/23 16:44 07/14/23 17:15 Magnesium Hydrox/Alum Hydrox 30 Ml Oral.Susp PO 07/14/23 16:45 30 ml ONCE ONE Administration Aspirin 325 mg 07/14/23 16:02 07/14/23 16:42 Aspirin Enteric Coated 325 Mg Tablet.Dr PO 07/14/23 16:03 325 mg ONCE ONE Administration Famotidine 20 mg 07/14/23 16:44 07/14/23 17:15 Famotidine/Pf 20 Mg/2 Ml Vial IVPUSH 07/14/23 16:45 20 mg ONCE ONE Administration Sodium Chloride 1,000 mls @ 999 mls/hr 07/14/23 16:44 07/14/23 19:54 Ns IV 07/14/23 17:44 Infused .Q1H1M ONE Infusion Morphine Sulfate 4 mg 07/14/23 16:26 07/14/23 16:42 Morphine Sulfate 4 Mg/Ml Cartridge IVPUSH 07/14/23 16:27 Not Given ONCE ONE Protocol Medical Decision Making Differential Diagnosis Differential Diagnoses: The differential diagnosis associated with the presentation includes (ACS, pneumonia, pneumothorax, pleural effusion, GERD, gastritis, food poisoning, gastroenteritis, electrolyte abnormality, anemia.) Admission/Observation Consideration of admission/observation: Escalation of care including admission/observation considered Lab Data MDM Lab Attestation statement: I reviewed the patient's lab results. 07/14/23 16:17 07/14/23 16:17 Labs: Lab Results 07/14/23 07/14/23 07/14/23 Range/Units 16:17 16:17 16:17 WBC 9.4 (4.8-10.8) X10*3/uL RBC 4.89 (4.60-5.80) X10*6/uL Hgb 13.8 L (14.0-18.0) g/dl Hct 40.7 L (42.0-52.0) % MCV 83.2 (80.0-98.0) fL MCH 28.2 (27.0-33.0) pg MCHC 33.9 (31.0-36.0) g/dl RDW 13.0 (11.0-16.0) % Plt Count 247 (160-400) X10*3/uL MPV 10.8 (9.4-12.4) fL Immature Gran % (Auto) 0.3 (0.0-0.4) % Neut % (Auto) 60.8 (45-73) % Lymph % (Auto) 26.7 (20-40) % Centre % (Auto) 7.7 (2-11) % Eos % (Auto) 4.0 (0-4) % Baso % (Auto) 0.5 (0-2) % Lymph # (Auto) 2.5 (1.2-4.9) X10*3/uL Centre # (Auto) 0.7 (0.1-1.2) X10*3/uL Eos # (Auto) 0.4 (0.0-0.4) X10*3/uL Baso # (Auto) 0.1 (0.0-0.2) X10*3/uL Abs Immat Gran (auto) 0.03 (0.00-0.03) X10*3/uL Absolute Neuts (auto) 5.7 (2.0-8.3) x10*3/uL Absolute Nucleated RBC 0.000 (0.0-0.012) X10*3/uL Nucleated RBC % (auto) 0.0 (0.0-0.2) /100WBC PT 11.5 (11.1-13.3) SEC INR 0.9 (0.9-1.1) Sodium 139 (135-145) mmol/L Potassium 3.6 (3.3-5.1) mmol/L Chloride 100 (96-108) mmol/L Carbon Dioxide 25 (22-29) mmol/L Anion Gap 18 (12-20) BUN 21 H (9-16) mg/dL Creatinine 1.39 (0.5-1.4) mg/dL Estim Creat Clear Calc 43.0 Estimated GFR 49 Random Glucose 235 H (60-115) mg/dL Calcium 10.2 D (8.4-10.2) mg/dL Magnesium 1.9 (1.6-2.6) mg/dL Total Bilirubin 1.0 (0.0-1.0) mg/dL AST 18 (5-37) U/L ALT 22 (0-40) U/L Alkaline Phosphatase 68 (39-117) U/L Troponin I High Sens (<3.5-35.0) ng/L B-Natriuretic Peptide (<100) pg/mL Total Protein 7.6 (6.5-8.0) g/dL Albumin 4.4 (3.5-5.0) g/dL Urine Color Urine Appearance Urine pH (5.0-9.0) Ur Specific [place] (1.005-1.025) Urine Protein (Neg-Trace) mg/dL Urine Glucose (UA) (Negative) mg/dL Urine Ketones (Negative) mg/dL Urine Blood (Negative) Urine Nitrite (Negative) Ur Leukocyte Esterase (Negative) Urine RBC (0-2) /HPF Urine WBC (0-5) /HPF Ur Squamous Epith Cells (0-2) /HPF Urine Bacteria (None Seen) Hyaline Casts (0-2) /LPF 07/14/23 07/14/23 07/14/23 Range/Units 16:17 16:17 18:19 WBC (4.8-10.8) X10*3/uL RBC (4.60-5.80) X10*6/uL Hgb (14.0-18.0) g/dl Hct (42.0-52.0) % MCV (80.0-98.0) fL MCH (27.0-33.0) pg MCHC (31.0-36.0) g/dl RDW (11.0-16.0) % Plt Count (160-400) X10*3/uL MPV (9.4-12.4) fL Immature Gran % (Auto) (0.0-0.4) % Neut % (Auto) (45-73) % Lymph % (Auto) (20-40) % Centre % (Auto) (2-11) % Eos % (Auto) (0-4) % Baso % (Auto) (0-2) % Lymph # (Auto) (1.2-4.9) X10*3/uL Centre # (Auto) (0.1-1.2) X10*3/uL Eos # (Auto) (0.0-0.4) X10*3/uL Baso # (Auto) (0.0-0.2) X10*3/uL Abs Immat Gran (auto) (0.00-0.03) X10*3/uL Absolute Neuts (auto) (2.0-8.3) x10*3/uL Absolute Nucleated RBC (0.0-0.012) X10*3/uL Nucleated RBC % (auto) (0.0-0.2) /100WBC PT (11.1-13.3) SEC INR (0.9-1.1) Sodium (135-145) mmol/L Potassium (3.3-5.1) mmol/L Chloride (96-108) mmol/L Carbon Dioxide (22-29) mmol/L Anion Gap (12-20) BUN (9-16) mg/dL Creatinine (0.5-1.4) mg/dL Estim Creat Clear Calc Estimated GFR Random Glucose (60-115) mg/dL Calcium (8.4-10.2) mg/dL Magnesium (1.6-2.6) mg/dL Total Bilirubin (0.0-1.0) mg/dL AST (5-37) U/L ALT (0-40) U/L Alkaline Phosphatase (39-117) U/L Troponin I High Sens < 2.7 (<3.5-35.0) ng/L B-Natriuretic Peptide 39 (<100) pg/mL Total Protein (6.5-8.0) g/dL Albumin (3.5-5.0) g/dL Urine Color Yellow Urine Appearance Clear Urine pH 6.5 (5.0-9.0) Ur Specific [place] 1.015 (1.005-1.025) Urine Protein Negative (Neg-Trace) mg/dL Urine Glucose (UA) >=1000 H (Negative) mg/dL Urine Ketones Negative (Negative) mg/dL Urine Blood Negative (Negative) Urine Nitrite Negative (Negative) Ur Leukocyte Esterase Negative (Negative) Urine RBC 0-2 (0-2) /HPF Urine WBC 0-5 (0-5) /HPF Ur Squamous Epith Cells 0-2 (0-2) /HPF Urine Bacteria None Seen (None Seen) Hyaline Casts 0-2 (0-2) /LPF 07/14/23 Range/Units 19:49 WBC (4.8-10.8) X10*3/uL RBC (4.60-5.80) X10*6/uL Hgb (14.0-18.0) g/dl Hct (42.0-52.0) % MCV (80.0-98.0) fL MCH (27.0-33.0) pg MCHC (31.0-36.0) g/dl RDW (11.0-16.0) % Plt Count (160-400) X10*3/uL MPV (9.4-12.4) fL Immature Gran % (Auto) (0.0-0.4) % Neut % (Auto) (45-73) % Lymph % (Auto) (20-40) % Centre % (Auto) (2-11) % Eos % (Auto) (0-4) % Baso % (Auto) (0-2) % Lymph # (Auto) (1.2-4.9) X10*3/uL Centre # (Auto) (0.1-1.2) X10*3/uL Eos # (Auto) (0.0-0.4) X10*3/uL Baso # (Auto) (0.0-0.2) X10*3/uL Abs Immat Gran (auto) (0.00-0.03) X10*3/uL Absolute Neuts (auto) (2.0-8.3) x10*3/uL Absolute Nucleated RBC (0.0-0.012) X10*3/uL Nucleated RBC % (auto) (0.0-0.2) /100WBC PT (11.1-13.3) SEC INR (0.9-1.1) Sodium (135-145) mmol/L Potassium (3.3-5.1) mmol/L Chloride (96-108) mmol/L Carbon Dioxide (22-29) mmol/L Anion Gap (12-20) BUN (9-16) mg/dL Creatinine (0.5-1.4) mg/dL Estim Creat Clear Calc Estimated GFR Random Glucose (60-115) mg/dL Calcium (8.4-10.2) mg/dL Magnesium (1.6-2.6) mg/dL Total Bilirubin (0.0-1.0) mg/dL AST (5-37) U/L ALT (0-40) U/L Alkaline Phosphatase (39-117) U/L Troponin I High Sens 4.8 D (<3.5-35.0) ng/L B-Natriuretic Peptide (<100) pg/mL Total Protein (6.5-8.0) g/dL Albumin (3.5-5.0) g/dL Urine Color Urine Appearance Urine pH (5.0-9.0) Ur Specific [place] (1.005-1.025) Urine Protein (Neg-Trace) mg/dL Urine Glucose (UA) (Negative) mg/dL Urine Ketones (Negative) mg/dL Urine Blood (Negative) Urine Nitrite (Negative) Ur Leukocyte Esterase (Negative) Urine RBC (0-2) /HPF Urine WBC (0-5) /HPF Ur Squamous Epith Cells (0-2) /HPF Urine Bacteria (None Seen) Hyaline Casts (0-2) /LPF Independent Interpretation I performed an independent interpretation of an: EKG (Normal sinus rhythm at 84 beats per minutes, left axis deviation, normal intervals, nonspecific T-wave flattening and T-wave inversion in lead III, AVF, V3, V4, V5, V6.) and Plain X-Ray (Chest x-ray: No acute cardiopulmonary process.) Radiology Impression Discussion of test interpretation with radiology: I have reviewed the radiologist's reading. Chronic Conditions Patient?s care impacted by: Diabetes, Hypertension and Other (CAD) Discharge Plan Discharge Clinical Impression: Food poisoning, Gastritis Patient Disposition: Home, Self-Care Instructions: Gastritis (ED), Food Poisoning (ED) Prescriptions: No Action (DME) blood sugar diagnostic Strip See Rx Instructions .ROUTE .MEDSUPPLY Qty: 10 Rx Instructions: As directed ascorbic acid (vitamin C) [Vitamin C] 500 mg tablet 500 mg PO BID 90 Days Qty: 180 3RF omeprazole 20 mg capsule,delayed release(DR/EC) 20 mg PO QAM Qty: 90 2RF metformin 500 mg tablet 1,000 mg PO BIDWMEAL 90 Days Qty: 360 3RF (DME) walking cane See Rx Instructions .Route .MEDSUPPLY Qty: 1 0RF Rx Instructions: As directed furosemide [Lasix] 40 mg tablet 40 mg PO BID 90 Days Qty: 180 2RF glipizide 5 mg tablet extended release 24hr 5 mg PO DAILY Qty: 90 1RF finasteride [Proscar] 5 mg tablet 5 mg PO DAILY 90 Days Qty: 90 2RF isosorbide mononitrate 30 mg tablet extended release 24 hr 1 tab PO DAILY Trulicity 1.5 mg/0.5 mL pen injector 1.5 mg subcut FR gabapentin 100 mg capsule 100 mg PO BEDTIME PRN (Reason: Pain) potassium chloride 20 mEq tablet extended release 20 meq PO DAILY Qty: 30 0RF cholecalciferol (vitamin D3) 25 mcg (1,000 unit) tablet 25 mcg PO DAILY aspirin 81 mg tablet,delayed release (DR/EC) 81 mg PO DAILY magnesium oxide 400 mg magnesium tablet 400 mg PO DAILY vitamin E (dl, acetate) 100 unit capsule 100 unit PO DAILY (DME) blood sugar diagnostic Strip See Rx Instructions .ROUTE .MEDSUPPLY Qty: 2 3RF Rx Instructions: As directed check blood sugar 2 times a day (DME) OneTouch Ultra Test Strip See Rx Instructions .Route Qty: 2 3RF Rx Instructions: As directed check bs BID metoprolol tartrate 25 mg tablet 25 mg PO TID 90 Days Qty: 270 2RF simethicone [Gas Relief (simethicone)] 125 mg tablet,chewable 125 mg PO BID-QID PRN (Reason: abdominal distention) Qty: 20 0RF Jardiance 10 mg tablet 10 mg PO DAILY Qty: 30 4RF cyclobenzaprine 10 mg tablet 10 mg PO BEDTIME PRN (Reason: muscle spasm) Qty: 14 0RF rosuvastatin 40 mg tablet 40 mg PO DAILY Qty: 30 5RF Referrals: Po,Aaron Reilly MD [Primary Care Provider] -
[2023-07-14 16:22] LABS: MANUAL DIFF FLAG NO
[2023-07-14 16:25] LABS: Basophils Absolute Auto 0.1 X10*3/uL (0.0-0.2); Basophils Percent Auto 0.5 % (0-2); Eosinophils Absolute Auto 0.4 X10*3/uL (0.0-0.4); Hematocrit 40.7 % (42.0-52.0); Hemoglobin 13.8 g/dl (14.0-18.0); Imm Gran Abs Auto 0.03 X10*3/uL (0.00-0.03); Imm Gran Pct Auto 0.3 % (0.0-0.4); Lymphocytes Absolute Auto 2.5 X10*3/uL (1.2-4.9); Lymphocytes Percent Auto 26.7 % (20-40); Mean Corpuscular HGB Conc 33.9 g/dl (31.0-36.0); Mean Corpuscular Hemoglobin 28.2 pg (27.0-33.0); Mean Corpuscular Volume 83.2 fL (80.0-98.0); Mean Platelet Volume 10.8 fL (9.4-12.4); Monocytes Absolute Auto 0.7 X10*3/uL (0.1-1.2); Monocytes Percent Auto 7.7 % (2-11); Neutrophils Absolute Auto 5.7 x10*3/uL (2.0-8.3); Neutrophils Percent Auto 60.8 % (45-73); Platelet Count 247 X10*3/uL (160-400); Red Blood Count 4.89 X10*6/uL (4.60-5.80); White Blood Count 9.4 X10*3/uL (4.8-10.8)
[2023-07-14 16:37] LABS: Alanine Aminotransferase 22 U/L (0-40); Albumin Level 4.4 g/dL (3.5-5.0); Alkaline Phosphatase 68 U/L (39-117); Anion Gap 18 (12-20); Aspartate Amino Transferase 18 U/L (5-37); Blood Urea Nitrogen 21 mg/dL (9-16); Calcium 10.2 mg/dL (8.4-10.2); Carbon Dioxide 25 mmol/L (22-29); Chloride 100 mmol/L (96-108); Estimated Glomerular Filt Rate 49; Glucose Random 235 mg/dL (60-115); Magnesium 1.9 mg/dL (1.6-2.6); Potassium 3.6 mmol/L (3.3-5.1); Sodium 139 mmol/L (135-145); Total Protein 7.6 g/dL (6.5-8.0)
[2023-07-14 16:38] LABS: INTERNATIONAL NORM RATIO 0.9 (0.9-1.1); Prothrombin Time 11.5 SEC (11.1-13.3)
[2023-07-14 16:42] VITALS: RESP 18
[2023-07-14 16:42] LABS: B Type Natriuretic Peptide 39 pg/mL (<100)
[2023-07-14] MEDS: Aspirin Enteric Coated 325 MG TABLET.DR PO (16:42)
[2023-07-14 16:45] LABS: Troponin-I High Sensitivity < 2.7 ng/L (<3.5-35.0)
[2023-07-14] MEDS: Famotidine/PF 20 MG/2 ML VIAL IVPUSH (17:15)
[2023-07-14] MEDS: 0.9 % Sodium Chloride 1,000 ML 999 ML IV (17:15)
[2023-07-14] MEDS: Magnesium Hydrox/Alum Hydrox 30 ML ORAL.SUSP PO (17:15)
[2023-07-14 18:20] VITALS: BP 145/74; PULSE 84; RESP 18; O2SAT 98
[2023-07-14 18:27] LABS: Appearance Urine Clear; Color Urine Yellow; Glucose Urine UA >=1000 mg/dL (Negative); Leukocyte Esterase Urine Negative (Negative); Nitrite Urine Negative (Negative); PH 6.5 (5.0-9.0); Specific Gravity - Urine 1.015 (1.005-1.025); UMIC TRIGGER UACC YES; Urine Blood Negative (Negative); Urine Ketones Negative (Negative); Urine Protein Negative (Neg-Trace)
[2023-07-14 18:39] LABS: Bacteria Urine None Seen (None Seen); Hyaline Casts Urine 0-2 /LPF (0-2); RBC Urine 0-2 /HPF (0-2); Squamous Epithelial Cell Urine 0-2 /HPF (0-2); WBC Urine 0-5 /HPF (0-5)
[2023-07-14 20:14] VITALS: BP 130/61; PULSE 77; RESP 18; TEMP 36.6; O2SAT 95
[2023-07-14 20:16] LABS: Troponin-I High Sensitivity 4.8 ng/L (<3.5-35.0)
== END 2023-07-14 21:12 | disposition home or self-care (01) ==
PROVIDERS: Physician Assistant; Emergency Provider Emergency Medicine; PCP Internal Medicine
DX: A05.9 Bacterial foodborne intoxication, unspecified (principal); K29.70 Gastritis, unspecified, without bleeding; R07.89 Other chest pain; R06.02 Shortness of breath; R11.2 Nausea with vomiting, unspecified; Z79.899 Other long term (current) drug therapy
CPT/HCPCS: 36415; 71045; 80053; 81001; 83735; 83880; 84484; 85025; 85610; 93005; 96361; 96374; 99284; 99285

== ENCOUNTER 2023-07-31 15:10 | Outpatient (AMB) | payer OTHER, SELFPAY ==
[2023-07-31 15:18] VITALS: BP 112/60; PULSE 79; O2SAT 97; BMI 24.9
--- NOTE | 2023-07-31 15:18 | A.OFFPC_ITS ---
Vital Signs 3 07/31/23 15:18 Height 5 ft 8 in Weight 163 lb 8 oz BMI 24.9 BP 112/60 Blood Pressure Location Lt brachial Position Sitting Pulse 79 Pulse Source Pulse Oximeter Pulse Oximetry (%) 97 Oxygen Delivery Method Room Air Intake Visit Reasons: left sided neck pain Strategic Marketing Leader Required: No Accompanied by: Self / Same As Patient Allergies lisinopril Allergy (Mild, Verified 07/31/23 15:18) Cough Penicillins Allergy (Mild, Verified 07/31/23 15:18) RASH linagliptin [Tradjenta] Adverse Reaction (Mild, Verified 07/31/23 15:18) diarrhea Medication List - Last Reconciled 07/31/23 by Aaron Collazo MD ascorbic acid (vitamin C) (Vitamin C) 500 mg PO BID 90 days aspirin 81 mg PO DAILY blood sugar diagnostic As directed blood sugar diagnostic (Connectuch Ultra Test strips) As directed check bs BID blood sugar diagnostic As directed check blood sugar 2 times a day cholecalciferol (vitamin D3) 25 mcg PO DAILY cyclobenzaprine 10 mg PO BEDTIME PRN dulaglutide (Trulicity) 1.5 mg subcut FR empagliflozin (Jardiance) 10 mg PO DAILY finasteride (Proscar) 5 mg PO DAILY 90 days furosemide (Lasix) 40 mg PO BID 90 days gabapentin 100 mg PO BEDTIME PRN glipizide ER 5 mg PO DAILY isosorbide mononitrate ER 1 tab PO DAILY magnesium oxide 400 mg PO DAILY metformin 1,000 mg (2 x 500 mg) PO BIDWMEAL 90 days metoprolol tartrate 25 mg PO TID 90 days omeprazole 20 mg PO QAM potassium chloride ER 20 mEq PO DAILY rosuvastatin 40 mg PO DAILY simethicone (Gas Relief (simethicone)) 125 mg PO BID-QID PRN vitamin E (dl, acetate) 100 units PO DAILY [walking cane As directed] Tobacco use date assessed: 07/31/23 Fall risk assessment: No Falls in past year Last assessed Fall Risk: 07/31/23 Dental Screening Dental Screen Date: 07/31/23 Did you have a dental visit in the last 12 months?: Yes Did you have a dental problem in the last 6 months where you did not have access to dental care?: No Was dental information given to patient?: Patient has dentist HPI left sided neck pain 2 HPI0 Details 77-year-old male with diabetes mellitus hypercholesterolemia GERD iron deficiency anemia generalized anxiety disorder BPH and coronary artery disease last seen in April 2023 patient is here for follow-up. Patient's colonoscopy is up-to-date. Patient follows up with Hematology Oncology for mild normocytic anemia which has been stable contributed by diabetes and chronic kidney disease. Patient was recently in the ER also 2 weeks ago for food poisoning/gastritis. In June patient was seen by the nurse practitioner for neck and left leg pain advised pain management. Patient also follows up with Cardiology recently in the hospital more a pattern of GERD for cholesterol medication change to rosuvastatin. Echocardiogram done May 2023Normal LV ejection fraction 55-60% with impaired relaxation filling pattern with underlying wall motion abnormality consistent with coronary artery disease 2. Fibrocalcific aortic valve changes no sheri with normal cardiac valvular Dopplers 3. Upper limits of normal ascending aort ic size 4. No gross pericardial effusion Myocardial perfusion done May 2023Myocardial perfusion imaging study shows normal myocardial perfusion 2. Gated LVEF is 69% 3. Transient ischemic dilatation not pre sent EKG is nondiagnostic for ischemia PAtient was brought new shoes and had in L big toe blister patient claims shoes caused this (discussed that gout also does this) is getting better- [facility] Medical History Acute bronchitis Adrenal adenoma BPH (benign prostatic hyperplasia) Burning chest pain Chest pain Constipation Coronary artery disease Fatty liver Foul smelling urine GERD (gastroesophageal reflux disease) Headache HTN (hypertension) Hypercholesterolemia Iron deficiency anemia Left shoulder pain Overweight (BMI 25.0-29.9) Renal calculi Sciatic nerve palsy, left Type 2 diabetes mellitus with hyperglycemia Weight loss Surgical History Hx of hand surgery History of transurethral resection of prostate History of esophagogastroduodenoscopy (EGD) H/O colonoscopy Hx of heart artery stent 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 History of nephrolithiasis History of prostate surgery History of arthroscopy of left shoulder History of tonsillectomy Family History Father Diabetes Hypertension CVD (cardiovascular disease) Mother Diabetes Social History Household Members: Family Housing: House Are you a primary insurance healthcare representative to a significant other at home: No Do you presently have visiting nurse or other home services: No Alcohol intake: never Patient Tobacco Use Status: Former Tobacco user Tobacco use type: Cigarette Cigarette Packs Per Day: 1.5 e-Cigarette/Vaping Use: Never Used Second Hand Smoke Exposure: No service: No Current occupational status: retired Cognitive needs: Yes (cane) Hearing needs: No Vision needs: Yes (perscription glasses) Questionnaire PHQ-9 Over the last 2 weeks, how often have you been bothered by any of the following problems? 1. Little interest or pleasure in doing things: nearly every day 2. Feeling down, depressed, or hopeless: nearly every day 3. Trouble falling or staying asleep, or sleeping too much: nearly every day 4. Feeling tired or having little energy: nearly every day 5. Poor appetite or overeating: nearly every day 6. Feeling bad about yourself - or that you are a failure or have let yourself or your family down: nearly every day 7. Trouble concentrating on things, such as reading the newspaper or watching television: nearly every day 8. Moving or speaking so slowly that other people could have noticed. Or the opposite - being so fidgety or restless that you have been moving around a lot more than usual: nearly every day 9. Thoughts that you would be better off or of hurting yourself in some way: several days Total score: 25 Depression Screening Interpretation: Positive Source: Developed by Drs. Elbert Boogie, Esther Hilliard, Anurag Gupta and colleagues, with an educational elfego from [employer]. Thrive Questionnaire Date Thrive assessed: 07/31/23 I am a: Patient What is your living situation today?: I have a steady place to live Within the past 12 months, did the food you bought not last and you didn't have the money to get more?: Never true Within the past 12 months, did you worry whether your food would run out before you got money to buy more?: Never true Do you have trouble paying for medicines?: No Do you have trouble getting transportation to medical appointments?: No Do you have trouble paying your heating and electricity bill?: No Do you have trouble taking care of your child, family member or friend?: No Do you have trouble with day-to-day activities such as bathing, preparing meals, shopping, managing finances, etc.?: No Are you currently unemployed and looking for a job?: No Are you interested in more education?: No Please select the resources that you would like help with: None Currently or been in a relationship where the following occur: no concerns reported AUDIT C Alcohol Use Questionnaire (AUDIT-C) 1. How often do you have a drink containing alcohol?: Monthly or less 2. How many drinks containing alcohol do you have on a typical day when you are drinking?: 1 or 2 3. How often do you have six or more drinks on one occasion?: Less than monthly Total Score: 2 TRINH-7 AMB Questionnaire TRINH-7 Date TRINH - 7 assessed: 07/31/23 Feeling nervous, anxious, or on edge: 0 = Not at all Not being able to stop or control worryin = Not at all Worrying too much about different things: 0 = Not at all Trouble relaxin = Not at all Being so restless that it is hard to sit still: 0 = Not at all Becoming easily annoyed or irritable: 0 = Not at all Feeling afraid as if something awful might happen: 0 = Not at all Total TRINH-7 score (0-4 normal; 5-9 mild; 10-14 moderate; 15-21 severe): 0 Source: Developed by Drs. Elbert Boogie, Esther Hilliard, Anurag Gupta and colleagues, with an educational elfego from [employer]. Physical exam (Primary Care) Vital Signs: Last Vital Signs Pulse 79 07/31/23 15:18 BP 112/60 07/31/23 15:18 Pulse Ox 97 07/31/23 15:18 Oxygen Delivery Method Room Air 07/31/23 15:18 BMI result Body Mass Index 24.9 Tobacco/Smoking Status: Tobacco use Status Tobacco use date assessed 07/31/23 07/31/23 15:20 Patient Tobacco Use Status Former Tobacco user 07/31/23 15:20 Tobacco use type Cigarette 07/31/23 15:20 e-Cigarette/Vaping Use Never Used 07/31/23 15:20 PHQ-9: PHQ-9 Score PHQ-9: Total score 25 07/31/23 15:39 Depression Screening Interpretation: Positive Thrive Assessment: Date of Thrive Assessment Date Thrive assessed 07/31/23 07/31/23 15:20 Currently or been in a relationship where the following occur: no concerns reported Const General: alert; No acute distress Eyes Conjunctivae: conjunctivae normal Resp Auscultation: clear to auscultation bilaterally Cardio Rate: regular rate Rhythm: regular rhythm GI Inspection: Yes normal to inspection Extrem General: Yes normal to inspection and No edema Ankle/foot/toe images: 2 1. reddish swelling 3 cm with a 1 cm center ulcer - dry Assessment and Plan Assessment & Plan (1) Type 2 diabetes mellitus with hyperglycemia: Comment: [facility] exam Code(s): E11.65 - Type 2 diabetes mellitus with hyperglycemia Qualifiers: Diabetes mellitus fdc insulin use: without buttermaker use Qualified Code(s): E11.65 - Type 2 diabetes mellitus with hyperglycemia Plan: Decrease the amount of carbohydrate intake, pasta, bread, rice and potatoes are all sugar and that is aside from all the sweet stuff, remember that fruits are good but they are Sweet also. Hemoglobin A1c goal of less than 7.0 patient on Trulicity 1.5 Jardiance 10 mg glipizide 5 mg once a day and metformin 1000 mg twice a day (2) GERD (gastroesophageal reflux disease): Code(s): K21.9 - Gastro-esophageal reflux disease without esophagitis Qualifiers: Esophagitis presence: without esophagitis Qualified Code(s): K21.9 - Gastro-esophageal reflux disease without esophagitis Plan: Avoid the foods that causes that usually spicy foods, tomato products, juices, coffee, soda and foods that your sensitive to. After eating do not lie down, allow 3-4 hours before in lie down. And keep the head of bed above 30 degrees to avoid the acid from going up. (3) Hypercholesterolemia: Code(s): E78.00 - Pure hypercholesterolemia, unspecified Plan: Avoid fried foods, chicken skin, eggs, butter margarine, pastries and meat. Be it pork or beef they have a lot of cholesterol changed cholesterol medication to rosuvastatin 40 mg once a day for the size of the pill need to retest September 2023 (4) Iron deficiency anemia: Code(s): D50.9 - Iron deficiency anemia, unspecified Plan: Patient follows up with hematology oncology continue with monitoring blood count (5) Generalized anxiety disorder: Code(s): F41.1 - Generalized anxiety disorder Plan: Stable (6) Coronary artery disease: Comment: nuclear stress June 2019 in failure lateral hypokinesis ejection fraction 55% CABG August [address] Rhodes Code(s): I25.10 - Atherosclerotic heart disease of [place] coronary artery without angina pectoris Qualifiers: Coronary Disease-Associated Artery/Lesion type: [place] artery [place] vs. transplanted heart: [place] heart Associated angina: without angina Qualified Code(s): I25.10 - Atherosclerotic heart disease of [place] coronary artery without angina pectoris Plan: Control the cholesterol, weight, blood pressure, diabetes continues follow-up with cardiology myocardial perfusion scan as well as echocardiogram May 2023 good (7) Cervical radiculopathy at C5: Code(s): M54.12 - Radiculopathy, cervical region Plan: Pain management referral done (8) Blister (nonthermal), left foot, initial encounter: Code(s): S90.822A - Blister (nonthermal), left foot, initial encounter Plan: Patient feels that left foot blister is from new shoes that was bought for him. He has not been wearing this anymore. Advised to continue monitoring this as because his diabetes is not controlled healing is low. (9) Diabetic neuropathy: Code(s): E11.40 - Type 2 diabetes mellitus with diabetic neuropathy, unspecified Plan: Discussed that this is complications from uncontrolled diabetes mellitus. Patient has been placed on gabapentin Medications: Changed 2 From empagliflozin (Jardiance) 10 mg PO DAILY 30 tabs 4RF E11.65 - Type 2 diabetes mellitus with hyperglycemia To empagliflozin 25 mg PO DAILY 90 tabs 4RF E11.65 - Type 2 diabetes mellitus with hyperglycemia Coding Level of Care Code Est Pt Level 4 ([id number]) Diagnoses Type 2 diabetes mellitus with hyperglycemia, without long-term current use of insulin E11.65 Diabetes mellitus buttermaker insulin use: without fdc use Gastroesophageal reflux disease without esophagitis K21.9 Esophagitis presence: without esophagitis Hypercholesterolemia E78.00 Iron deficiency anemia D50.9 Generalized anxiety disorder F41.1 Coronary artery disease involving [place] coronary artery of [place] heart without angina pectoris I25.10 Coronary Disease-Associated Artery/Lesion type: [place] artery [place] vs. transplanted heart: [place] heart Associated angina: without angina Cervical radiculopathy at C5 M54.12 Blister (nonthermal), left foot, initial encounter S90.822A Diabetic neuropathy E11.40
== END 2023-07-31 16:37 | disposition home or self-care (01) ==
PROVIDERS: PCP Internal Medicine; Visit Provider Internal Medicine
DX: E11.65 Type 2 diabetes mellitus with hyperglycemia (principal); K21.9 Gastro-esophageal reflux disease without esophagitis; E11.40 Type 2 diabetes mellitus with diabetic neuropathy, unspecified; E78.00 Pure hypercholesterolemia, unspecified; D50.9 Iron deficiency anemia, unspecified; F41.1 Generalized anxiety disorder; I25.10 Atherosclerotic heart disease of native coronary artery without angina pectoris; M54.12 Radiculopathy, cervical region; S90.822A Blister (nonthermal), left foot, initial encounter
CPT/HCPCS: 99214

== ENCOUNTER 2023-08-19 12:22 | Outpatient (AMB) | payer OTHER, SELFPAY ==
--- NOTE | 2023-08-19 12:30 | MHC.PC.OV ---
Vital Signs 08/19/23 12:31 Height 5 ft 8 in Weight 163 lb BMI 24.8 BP 122/68 Blood Pressure Location Lt brachial Position Sitting Pulse 74 Pulse Source Pulse Oximeter Pulse Oximetry (%) 97 Oxygen Delivery Method Room Air Intake Visit Reasons: 3M follow up, cholesterol, CAD, left foot pain Allergies lisinopril Allergy (Mild, Verified 08/19/23 12:31) Cough Penicillins Allergy (Mild, Verified 08/19/23 12:31) RASH linagliptin [Tradjenta] Adverse Reaction (Mild, Verified 08/19/23 12:31) diarrhea Medication List - Last Reconciled 08/19/23 by Aaron Collazo MD ascorbic acid (vitamin C) (Vitamin C) 500 mg PO BID 90 days aspirin 81 mg PO DAILY blood sugar diagnostic As directed blood sugar diagnostic ([place] Ultra Test strips) As directed check bs BID blood sugar diagnostic As directed check blood sugar 2 times a day cholecalciferol (vitamin D3) 25 mcg PO DAILY cyclobenzaprine 10 mg PO BEDTIME PRN dulaglutide (Trulicity) 1.5 mg subcut FR empagliflozin 25 mg PO DAILY finasteride (Proscar) 5 mg PO DAILY 90 days furosemide (Lasix) 40 mg PO BID 90 days gabapentin 100 mg PO BEDTIME PRN glipizide ER 5 mg PO DAILY isosorbide mononitrate ER 1 tab PO DAILY magnesium oxide 400 mg PO DAILY metformin 1,000 mg (2 x 500 mg) PO BIDWMEAL 90 days metoprolol tartrate 25 mg PO TID 90 days omeprazole 20 mg PO QAM potassium chloride ER 20 mEq PO DAILY rosuvastatin 40 mg PO DAILY simethicone (Gas Relief (simethicone)) 125 mg PO BID-QID PRN vitamin E (dl, acetate) 100 units PO DAILY [walking cane As directed] Tobacco use date assessed: 07/31/23 Fall risk assessment: No Falls in past year Last assessed Fall Risk: 08/19/23 Dental Screening Dental Screen Date: 08/19/23 Did you have a dental visit in the last 12 months?: Yes Did you have a dental problem in the last 6 months where you did not have access to dental care?: No Was dental information given to patient?: Patient has dentist HPI 3M follow up, cholesterol, CAD HPI Details 77-year-old male with diabetes mellitus GERD hypercholesterolemia iron deficiency anemia generalized anxiety disorder coronary artery disease C5 cervical radiculopathy coming in for follow-up. Patient was last seen July 2023. Colonoscopy is up-to-date. 1 day of pain on the L ankle and foot, deny fall or trauma. [facility] Medical History Acute bronchitis Adrenal adenoma BPH (benign prostatic hyperplasia) Burning chest pain Chest pain Constipation Coronary artery disease Fatty liver Foul smelling urine GERD (gastroesophageal reflux disease) Headache HTN (hypertension) Hypercholesterolemia Iron deficiency anemia Left shoulder pain Overweight (BMI 25.0-29.9) Renal calculi Sciatic nerve palsy, left Type 2 diabetes mellitus with hyperglycemia Weight loss Surgical History Hx of hand surgery History of transurethral resection of prostate History of esophagogastroduodenoscopy (EGD) H/O colonoscopy Hx of heart artery stent 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 History of nephrolithiasis History of prostate surgery History of arthroscopy of left shoulder History of tonsillectomy Family History Father Diabetes Hypertension CVD (cardiovascular disease) Mother Diabetes Social History Household Members: Family Housing: House Are you a primary child care lead teacher to a significant other at home: No Do you presently have visiting nurse or other home services: No Alcohol intake: never Patient Tobacco Use Status: Former Tobacco user Tobacco use type: Cigarette Cigarette Packs Per Day: 1.5 e-Cigarette/Vaping Use: Never Used Second Hand Smoke Exposure: No service: No Current occupational status: retired Cognitive needs: Yes (cane) Hearing needs: No Vision needs: Yes (perscription glasses) Questionnaire PHQ-9 Over the last 2 weeks, how often have you been bothered by any of the following problems? 1. Little interest or pleasure in doing things: nearly every day 2. Feeling down, depressed, or hopeless: nearly every day 3. Trouble falling or staying asleep, or sleeping too much: nearly every day 4. Feeling tired or having little energy: nearly every day 5. Poor appetite or overeating: nearly every day 6. Feeling bad about yourself - or that you are a failure or have let yourself or your family down: nearly every day 7. Trouble concentrating on things, such as reading the newspaper or watching television: nearly every day 8. Moving or speaking so slowly that other people could have noticed. Or the opposite - being so fidgety or restless that you have been moving around a lot more than usual: nearly every day 9. Thoughts that you would be better off or of hurting yourself in some way: several days Total score: 25 Depression Screening Interpretation: Positive Depression Screening Done: Yes Source: Developed by Drs. Elbert Boogie, Esther Hilliard, Anurag Gupta and colleagues, with an educational elfego from [employer]. Thrive Questionnaire Date Thrive assessed: 07/31/23 AUDIT C Alcohol Use Questionnaire (AUDIT-C) 1. How often do you have a drink containing alcohol?: Monthly or less 2. How many drinks containing alcohol do you have on a typical day when you are drinking?: 1 or 2 3. How often do you have six or more drinks on one occasion?: Less than monthly Total Score: 2 TRINH-7 AMB Questionnaire TRINH-7 Date TRINH - 7 assessed: 07/31/23 Source: Developed by Drs. Elbert Boogie, Esther Hilliard, Anurag Gupta and colleagues, with an educational elfego from [employer]. Physical exam (Primary Care) Vital Signs: Last Vital Signs Pulse 74 08/19/23 12:31 BP 122/68 08/19/23 12:31 Pulse Ox 97 08/19/23 12:31 Oxygen Delivery Method Room Air 08/19/23 12:31 BMI result Body Mass Index 24.8 Tobacco/Smoking Status: Tobacco use Status Tobacco use date assessed 07/31/23 08/19/23 12:36 Patient Tobacco Use Status Former Tobacco user 08/19/23 12:36 Tobacco use type Cigarette 08/19/23 12:36 e-Cigarette/Vaping Use Never Used 08/19/23 12:36 PHQ-9: PHQ-9 Score PHQ-9: Total score 25 08/19/23 19:12 Depression Screening Interpretation: Positive Thrive Assessment: Date of Thrive Assessment Date Thrive assessed 07/31/23 08/19/23 12:36 Const General: alert; No acute distress Eyes Conjunctivae: conjunctivae normal Resp Auscultation: clear to auscultation bilaterally Cardio Rate: regular rate Rhythm: regular rhythm GI Inspection: Yes normal to inspection Extrem General: Yes normal to inspection and No edema Office Procedures Flu Questionnaire Does the patient have a severe egg allergy?: No Does the patient have severe life threatening allergies?: No Does the patient have a fever or illness today?: No Has the patient ever had Guillain-Bridgeton Syndrome?: No Has the patient ever had any past reaction to a flu shot?: No Immunizations flu vacc [id number] 6mos up(PF) 60 mcg(15 mcgx4)/0.5 mL IM syringe Performing Provider: Aaron Collazo MD [facility] Administered by: Allegra Colon CMA on 08/19/23 12:40 Dose Route Admin Location Dispensed Lot Number Expiration Date NDC Colorist 0.5 mL IM Right Deltoid 0.5 mL [id number] 05/16/24 12055-720-56 [employer] VIS Given Date VIS Provided VIS Publication Date 08/19/23 Single Vaccine 21 Eligibility Eligibility Date Funding Source Not [facility] Eligible 08/19/23 Private Assessment and Plan Assessment & Plan (1) Type 2 diabetes mellitus with hyperglycemia: Comment: [facility] exam Code(s): E11.65 - Type 2 diabetes mellitus with hyperglycemia Qualifiers: Diabetes mellitus intermediate manager insulin use: without intermediate manager use Qualified Code(s): E11.65 - Type 2 diabetes mellitus with hyperglycemia Plan: Decrease the amount of carbohydrate intake, pasta, bread, rice and potatoes are all sugar and that is aside from all the sweet stuff, remember that fruits are good but they are Sweet also. Hemoglobin A1c goal of less than 7.June 7.4 patient is on Trulicity 1.5 mg once a week Jardiance 25 mg once a day glipizide 5 mg once a day metformin 1000 mg twice a day (2) Overweight (BMI 25.0-29.9): Code(s): E66.3 - Overweight Plan: Diet and exercise (3) Hypercholesterolemia: Code(s): E78.00 - Pure hypercholesterolemia, unspecified Plan: Avoid fried foods, chicken skin, eggs, butter margarine, pastries and meat. Be it pork or beef they have a lot of cholesterol LDL goal of less than 70 patient is on rosuvastatin 40 mg once a day (4) GERD (gastroesophageal reflux disease): Code(s): K21.9 - Gastro-esophageal reflux disease without esophagitis Qualifiers: Esophagitis presence: without esophagitis Qualified Code(s): K21.9 - Gastro-esophageal reflux disease without esophagitis Plan: Avoid the foods that causes that usually spicy foods, tomato products, juices, coffee, soda and foods that your sensitive to. After eating do not lie down, allow 3-4 hours before in lie down. And keep the head of bed above 30 degrees to avoid the acid from going up. (5) Iron deficiency anemia: Code(s): D50.9 - Iron deficiency anemia, unspecified Plan: Patient follows up with hematology oncology and this is resolving (6) Generalized anxiety disorder: Code(s): F41.1 - Generalized anxiety disorder Plan: Stable (7) Coronary artery disease: Comment: nuclear stress June 2019 in failure lateral hypokinesis ejection fraction 55% CABG August [address] Rhodes Code(s): I25.10 - Atherosclerotic heart disease of [place] coronary artery without angina pectoris Qualifiers: Associated angina: without angina Coronary Disease-Associated Artery/Lesion type: [place] artery [place] vs. transplanted heart: [place] heart Qualified Code(s): I25.10 - Atherosclerotic heart disease of [place] coronary artery without angina pectoris Plan: Control the cholesterol, weight, blood pressure, diabetes continue with aspirin 81 mg once a day (8) Plantar fasciitis of left foot: Code(s): M72.2 - Plantar fascial fibromatosis Plan: INFORMATION given to patient (9) Cervical radiculopathy at C5: Code(s): M54.12 - Radiculopathy, cervical region Orders: Orders Influenza [id number] Immunization Today Z23 - Encounter for immunization Medications: Refilled omeprazole 20 mg PO QAM 90 caps 2RF K21.9 - Gastro-esophageal reflux disease without esophagitis Coding Level of Care Code Est Pt Level 4 (04340) Diagnoses Type 2 diabetes mellitus with hyperglycemia, without long-term current use of insulin E11.65 Diabetes mellitus residential insulin use: without intermediate manager use Overweight (BMI 25.0-29.9) E66.3 Hypercholesterolemia E78.00 Gastroesophageal reflux disease without esophagitis K21.9 Esophagitis presence: without esophagitis Iron deficiency anemia D50.9 Generalized anxiety disorder F41.1 Coronary artery disease involving [place] coronary artery of [place] heart without angina pectoris I25.10 Associated angina: without angina Coronary Disease-Associated Artery/Lesion type: [place] artery [place] vs. transplanted heart: [place] heart Plantar fasciitis of left foot M72.2 Cervical radiculopathy at C5 M54.12
[2023-08-19 12:31] VITALS: BP 122/68; PULSE 74; O2SAT 97; BMI 24.8
== END 2023-08-19 13:03 | disposition home or self-care (01) ==
PROVIDERS: PCP Internal Medicine; Visit Provider Internal Medicine
DX: E11.65 Type 2 diabetes mellitus with hyperglycemia (principal); E66.3 Overweight; E78.00 Pure hypercholesterolemia, unspecified; K21.9 Gastro-esophageal reflux disease without esophagitis; D50.9 Iron deficiency anemia, unspecified; F41.1 Generalized anxiety disorder; I25.10 Atherosclerotic heart disease of native coronary artery without angina pectoris; M72.2 Plantar fascial fibromatosis; M54.12 Radiculopathy, cervical region; Z23 Encounter for immunization
CPT/HCPCS: 90471; 90686; 99214

== ENCOUNTER 2023-09-04 07:54 | Outpatient (REF) | payer OTHER, SELFPAY ==
[2023-09-04 08:23] LABS: Estimated Average Glucose 169 mg/dL; Hemoglobin A1c % 7.5 % (<6.0)
[2023-09-04 08:43] LABS: Alanine Aminotransferase 14 U/L (0-40); Albumin Level 4.3 g/dL (3.5-5.0); Alkaline Phosphatase 56 U/L (39-117); Anion Gap 16 (12-20); Aspartate Amino Transferase 19 U/L (5-37); Bilirubin Total 0.9 mg/dL (0.0-1.0); Blood Urea Nitrogen 18 mg/dL (9-16); Calcium 10.1 mg/dL (8.4-10.2); Carbon Dioxide 28 mmol/L (22-29); Chloride 100 mmol/L (96-108); Cholesterol 108 mg/dL (<200); Estimated Glomerular Filt Rate 40; Glucose Random 146 mg/dL (60-115); HDL Cholesterol 40 mg/dL (>40); LDL Cholesterol Calculated 32 mg/dL (<100); Potassium 3.7 mmol/L (3.3-5.1); Sodium 140 mmol/L (135-145); Total Protein 7.5 g/dL (6.5-8.0); Triglycerides 183 mg/dL (<150)
== END 2023-09-04 07:55 | disposition home or self-care (01) ==
LOC: HO.LAB 07:54
PROVIDERS: Nurse Practitioner Family; PCP Internal Medicine; Visit Provider Internal Medicine
DX: E78.00 Pure hypercholesterolemia, unspecified (principal); E11.65 Type 2 diabetes mellitus with hyperglycemia; I25.10 Atherosclerotic heart disease of native coronary artery without angina pectoris
CPT/HCPCS: 36415; 80053; 80061; 83036

== ENCOUNTER 2023-10-07 16:34 | Outpatient (AMB) | payer OTHER, SELFPAY ==
[2023-10-07 16:38] VITALS: BP 120/60; PULSE 80; O2SAT 95; BMI 24.3
--- NOTE | 2023-10-07 16:38 | MHC.PC.OV ---
Vital Signs 10/07/23 16:38 Height 5 ft 8 in Weight 160 lb BMI 24.3 BP 120/60 Blood Pressure Location Lt brachial Position Sitting Pulse 80 Pulse Source Pulse Oximeter Pulse Oximetry (%) 95 Oxygen Delivery Method Room Air Intake Visit Reasons: Renal Insufficiency Per Dr HALE Corporate Claims Examiner Required: No Engineering Teacher: Not Required per policy Accompanied by: Self / Same As Patient Allergies lisinopril Allergy (Mild, Verified 10/07/23 16:38) Cough Penicillins Allergy (Mild, Verified 10/07/23 16:38) RASH linagliptin [Tradjenta] Adverse Reaction (Mild, Verified 10/07/23 16:38) diarrhea Medication List - Last Reconciled 10/07/23 by Aaron Hale MD ascorbic acid (vitamin C) (Vitamin C) 500 mg PO BID 90 days aspirin 81 mg PO DAILY blood sugar diagnostic As directed blood sugar diagnostic ([place] Ultra Test strips) As directed check bs BID blood sugar diagnostic As directed check blood sugar 2 times a day cholecalciferol (vitamin D3) 25 mcg PO DAILY cyclobenzaprine 10 mg PO BEDTIME PRN dulaglutide (Trulicity) 1.5 mg (0.5 mL) subcut FR empagliflozin 25 mg PO DAILY finasteride (Proscar) 5 mg PO DAILY 90 days furosemide (Lasix) 40 mg PO DAILY 90 days gabapentin 300 mg PO BEDTIME glipizide ER 10 mg PO DAILY isosorbide mononitrate ER 1 tab PO DAILY magnesium oxide 400 mg PO DAILY metoprolol tartrate 25 mg PO TID 90 days omeprazole 20 mg PO QAM potassium chloride ER 20 mEq PO DAILY rosuvastatin 40 mg PO DAILY simethicone (Gas Relief (simethicone)) 125 mg PO BID-QID PRN vitamin E (dl, acetate) 100 units PO DAILY [walking cane As directed] Tobacco use date assessed: 07/31/23 Fall risk assessment: No Falls in past year Last assessed Fall Risk: 10/07/23 Dental Screening Dental Screen Date: 10/07/23 Did you have a dental visit in the last 12 months?: Yes Did you have a dental problem in the last 6 months where you did not have access to dental care?: No Was dental information given to patient?: Patient has dentist HPI Renal Insufficiency Per Dr HALE HPI Details 77-year-old overweight male with diabetes mellitus hypercholesterolemia GERD anemia generalized anxiety disorder with coronary artery disease coming in for follow-up. Last seen in August 2023. COUNTS INCLUDE 234 BEDS AT [facility] Medical History Iron deficiency anemia HTN (hypertension) Weight loss Acute bronchitis Sciatic nerve palsy, left Headache Chest pain Burning chest pain Left shoulder pain Constipation Foul smelling urine BPH (benign prostatic hyperplasia) Fatty liver Renal calculi Adrenal adenoma GERD (gastroesophageal reflux disease) Hypercholesterolemia Coronary artery disease Overweight (BMI 25.0-29.9) Type 2 diabetes mellitus with hyperglycemia Surgical History Hx of hand surgery History of transurethral resection of prostate History of esophagogastroduodenoscopy (EGD) H/O colonoscopy Hx of heart artery stent 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 History of nephrolithiasis History of prostate surgery History of arthroscopy of left shoulder History of tonsillectomy Family History Father Diabetes Hypertension CVD (cardiovascular disease) Mother Diabetes Household Members: Family Housing: House Are you a primary pediatric critical care nurse to a significant other at home: No Do you presently have visiting nurse or other home services: No Alcohol intake: never Patient Tobacco Use Status: Former Tobacco user Tobacco use type: Cigarette Cigarette Packs Per Day: 1.5 e-Cigarette/Vaping Use: Never Used Second Hand Smoke Exposure: No service: No Current occupational status: retired Cognitive needs: Yes (cane) Hearing needs: No Vision needs: Yes (perscription glasses) Questionnaire PHQ-9 Over the last 2 weeks, how often have you been bothered by any of the following problems? 1. Little interest or pleasure in doing things: nearly every day 2. Feeling down, depressed, or hopeless: nearly every day 3. Trouble falling or staying asleep, or sleeping too much: nearly every day 4. Feeling tired or having little energy: nearly every day 5. Poor appetite or overeating: nearly every day 6. Feeling bad about yourself - or that you are a failure or have let yourself or your family down: nearly every day 7. Trouble concentrating on things, such as reading the newspaper or watching television: nearly every day 8. Moving or speaking so slowly that other people could have noticed. Or the opposite - being so fidgety or restless that you have been moving around a lot more than usual: nearly every day 9. Thoughts that you would be better off or of hurting yourself in some way: several days Total score: 25 Depression Screening Interpretation: Positive Depression Screening Done: Yes Source: Developed by Drs. Elbert Boogie, Esther Hilliard, Anurag Gupta and colleagues, with an educational elfego from [employer]. Thrive Questionnaire Date Thrive assessed: 07/31/23 AUDIT C Alcohol Use Questionnaire (AUDIT-C) 1. How often do you have a drink containing alcohol?: Monthly or less 2. How many drinks containing alcohol do you have on a typical day when you are drinking?: 1 or 2 3. How often do you have six or more drinks on one occasion?: Less than monthly Total Score: 2 TRINH-7 AMB Questionnaire TRINH-7 Date TRINH - 7 assessed: 07/31/23 Source: Developed by Drs. Elbert Boogie, Esther Hilliard, Anurag Gupta and colleagues, with an educational elfego from [employer]. Physical exam (Primary Care) Vital Signs: Last Vital Signs Pulse 80 10/07/23 16:38 BP 120/60 10/07/23 16:38 Pulse Ox 95 10/07/23 16:38 Oxygen Delivery Method Room Air 10/07/23 16:38 BMI result Body Mass Index 24.3 Tobacco/Smoking Status: Tobacco use Status Tobacco use date assessed 07/31/23 10/07/23 16:39 Patient Tobacco Use Status Former Tobacco user 10/07/23 16:39 Tobacco use type Cigarette 10/07/23 16:39 e-Cigarette/Vaping Use Never Used 10/07/23 16:39 PHQ-9: PHQ-9 Score PHQ-9: Total score 25 10/07/23 16:39 Depression Screening Interpretation: Positive Thrive Assessment: Date of Thrive Assessment Date Thrive assessed 07/31/23 10/07/23 16:39 Const General: alert; No acute distress Eyes Conjunctivae: conjunctivae normal Resp Auscultation: clear to auscultation bilaterally Cardio Rate: regular rate Rhythm: regular rhythm GI Inspection: Yes normal to inspection Extrem General: Yes normal to inspection and No edema Assessment and Plan Assessment & Plan (1) Type 2 diabetes mellitus with hyperglycemia: Comment: [facility] exam Code(s): E11.65 - Type 2 diabetes mellitus with hyperglycemia Qualifiers: Diabetes mellitus correction insulin use: without correction use Qualified Code(s): E11.65 - Type 2 diabetes mellitus with hyperglycemia Plan: Decrease the amount of carbohydrate intake, pasta, bread, rice and potatoes are all sugar and that is aside from all the sweet stuff, remember that fruits are good but they are Sweet also. Hemoglobin A1c goal of less than 7.0. Patient is presently on glipizide 5 mg once a day Jardiance 25 mg once a day and started on Trulicity 1.5 mg once a week (2) Overweight (BMI 25.0-29.9): Code(s): E66.3 - Overweight Plan: Diet and exercise (3) Hypercholesterolemia: Code(s): E78.00 - Pure hypercholesterolemia, unspecified Plan: Avoid fried foods, chicken skin, eggs, butter margarine, pastries and meat. Be it pork or beef they have a lot of cholesterol LDL goal of less than 70 and triglyceride of less than 150 patient is taking rosuvastatin 40 mg once a day blood work August 2023 good (4) GERD (gastroesophageal reflux disease): Code(s): K21.9 - Gastro-esophageal reflux disease without esophagitis Qualifiers: Esophagitis presence: without esophagitis Qualified Code(s): K21.9 - Gastro-esophageal reflux disease without esophagitis Plan: Avoid the foods that causes that usually spicy foods, tomato products, juices, coffee, soda and foods that your sensitive to. After eating do not lie down, allow 3-4 hours before in lie down. And keep the head of bed above 30 degrees to avoid the acid from going up. (5) Generalized anxiety disorder: Code(s): F41.1 - Generalized anxiety disorder Plan: Continue with present medication (6) Coronary artery disease: Comment: nuclear stress June 2019 in failure lateral hypokinesis ejection fraction 55% CABG August [address] Rhodes Code(s): I25.10 - Atherosclerotic heart disease of [place] coronary artery without angina pectoris Qualifiers: Coronary Disease-Associated Artery/Lesion type: [place] artery [place] vs. transplanted heart: [place] heart Associated angina: without angina Qualified Code(s): I25.10 - Atherosclerotic heart disease of [place] coronary artery without angina pectoris Plan: Control the cholesterol, weight, blood pressure, diabetes continue with aspirin 81 mg once a day (7) Renal insufficiency: Code(s): N28.9 - Disorder of kidney and ureter, unspecified Orders: Orders Comprehensive Met. Panel Today N28.9 - Disorder of kidney and ureter, unspecified Lipid Panel Today E78.00 - Pure hypercholesterolemia, unspecified, N28.9 - Disorder of kidney and ureter, unspecified Referrals Nephrology Referral N28.9 - Disorder of kidney and ureter, unspecified Medications: New gabapentin 300 mg PO BEDTIME 30 caps 5RF E11.40 - Type 2 diabetes mellitus with diabetic neuropathy, unspecified Changed From glipizide ER 5 mg PO DAILY 90 tabs 1RF E11.65 - Type 2 diabetes mellitus with hyperglycemia To glipizide ER 10 mg PO DAILY 30 tabs 2RF E11.65 - Type 2 diabetes mellitus with hyperglycemia Coding Level of Care Code Est Pt Level 4 (47397) Diagnoses Type 2 diabetes mellitus with hyperglycemia, without long-term current use of insulin E11.65 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 transplanted heart: [place] heart Associated angina: without angina Renal insufficiency N28.9
== END 2023-10-07 17:30 | disposition home or self-care (01) ==
PROVIDERS: PCP Internal Medicine; Visit Provider Internal Medicine
DX: E11.65 Type 2 diabetes mellitus with hyperglycemia (principal); E66.3 Overweight; E78.00 Pure hypercholesterolemia, unspecified; K21.9 Gastro-esophageal reflux disease without esophagitis; F41.1 Generalized anxiety disorder; I25.10 Atherosclerotic heart disease of native coronary artery without angina pectoris; N28.9 Disorder of kidney and ureter, unspecified
CPT/HCPCS: 99214

== ENCOUNTER 2023-10-13 11:15 | Outpatient (REF) | payer OTHER, SELFPAY ==
[2023-10-13 13:43] LABS: Alanine Aminotransferase 18 U/L (0-40); Albumin Level 4.2 g/dL (3.5-5.0); Alkaline Phosphatase 57 U/L (39-117); Anion Gap 14 (12-20); Aspartate Amino Transferase 19 U/L (5-37); Bilirubin Total 0.9 mg/dL (0.0-1.0); Blood Urea Nitrogen 17 mg/dL (9-16); Calcium 9.8 mg/dL (8.4-10.2); Carbon Dioxide 28 mmol/L (22-29); Chloride 100 mmol/L (96-108); Cholesterol 135 mg/dL (<200); Estimated Glomerular Filt Rate 44; Glucose Random 352 mg/dL (60-115); HDL Cholesterol 50 mg/dL (>40); LDL Cholesterol Calculated 49 mg/dL (<100); Sodium 138 mmol/L (135-145); Total Protein 7.3 g/dL (6.5-8.0); Triglycerides 181 mg/dL (<150)
== END 2023-10-13 11:16 | disposition home or self-care (01) ==
LOC: HO.LAB 11:15
PROVIDERS: PCP Internal Medicine; Visit Provider Internal Medicine Hypertension Specialist
DX: E78.00 Pure hypercholesterolemia, unspecified (principal); N28.9 Disorder of kidney and ureter, unspecified; E11.22 Type 2 diabetes mellitus with diabetic chronic kidney disease; I12.9 Hypertensive chronic kidney disease with stage 1 through stage 4 chronic kidney disease, or unspecified chronic kidney disease; N18.30 Chronic kidney disease, stage 3 unspecified
CPT/HCPCS: 36415; 80053; 80061; 99202

== ENCOUNTER 2023-10-13 11:15 | Outpatient (AMB) | payer OTHER, SELFPAY ==
--- NOTE | 2023-10-13 11:26 | A.OFFVIS_ITS ---
Intake Vital Signs 10/13/23 11:27 Height 5 ft 8 in Weight 162 lb BMI 24.6 BP 118/70 Blood Pressure Location Rt brachial Position Sitting Pulse 79 Pulse Source Pulse Oximeter Pulse Oximetry (%) 94 Oxygen Delivery Method Room Air Intake Visit Reasons: CKD Intake Note: New pt presents today for CKD consult. C/o pain in bladder. States he has family emergency and will be traveling to [place]. Pattern Worker Required: No Accompanied by: Self / Same As Patient Allergies lisinopril Allergy (Mild, Verified 10/13/23 11:38) Cough Penicillins Allergy (Mild, Verified 10/13/23 11:38) RASH linagliptin [Tradjenta] Adverse Reaction (Mild, Verified 10/13/23 11:38) diarrhea HPI HPI Comments History of Present Illness Details 77-year-old male with a history of CAD status post quadruple bypass, diabetes, hypertension, iron deficiency anemia, HLD, GERD, has been referred for CKD. Baseline serum creatinine has been around 1.2-1.4 mg/dL. Recent creatinine was 1.6 mg/dL. He has been on Lasix 40 mg a day. He has no edema. He has occasional lightheadedness. No urine symptoms. [facility] Medical History Iron deficiency anemia HTN (hypertension) Weight loss Acute bronchitis Sciatic nerve palsy, left Headache Chest pain Burning chest pain Left shoulder pain Constipation Foul smelling urine BPH (benign prostatic hyperplasia) Fatty liver Renal calculi Adrenal adenoma GERD (gastroesophageal reflux disease) Hypercholesterolemia Coronary artery disease Overweight (BMI 25.0-29.9) Type 2 diabetes mellitus with hyperglycemia Surgical History Hx of hand surgery History of transurethral resection of prostate History of esophagogastroduodenoscopy (EGD) H/O colonoscopy Hx of heart artery stent 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 History of nephrolithiasis History of prostate surgery History of arthroscopy of left shoulder History of tonsillectomy Family History Father Diabetes Hypertension CVD (cardiovascular disease) Mother Diabetes (Reviewed 10/13/23 @ 11:33 by SHRILEY Bass Household Members: Family Housing: House Are you a primary respiratory care specialist to a significant other at home: No Do you presently have visiting nurse or other home services: No Alcohol intake: never Patient Tobacco Use Status: Former Tobacco user Tobacco use type: Cigarette Cigarette Packs Per Day: 1.5 e-Cigarette/Vaping Use: Never Used Second Hand Smoke Exposure: No service: No Current occupational status: retired Cognitive needs: Yes (cane) Hearing needs: No Vision needs: Yes (perscription glasses) Physical Exam Vital Signs: Last Vital Signs Pulse 79 10/13/23 11:27 BP 118/70 10/13/23 11:27 Pulse Ox 94 10/13/23 11:27 Oxygen Delivery Method Room Air 10/13/23 11:27 BMI result Body Mass Index 24.6 Const General: comfortable Nutritional Appearance: well nourished Orientation/consciousness: patient oriented x3 HEENT Head: No normal to inspection Mouth: moist mucous membranes Neck Neck: Yes supple and Yes no JVD Resp Auscultation: clear to auscultation bilaterally, no rales and rub present Cardio Jugular venous distension: no JVD Palpation: no palpable S3 and no palpable S4 Heart sounds: no rubs GI Palpation (GI): Soft to palpation and nontender Percussion: No Fluid wave present General: Yes no CVA tenderness Back/Spine/Pelvis Back: no CVA tenderness Skin General skin exam: no rashes or lesions noted Neuro General: patient oriented x3 Extrem General: Yes no pedal edema and No clubbing Results Reviewed Results Reviewed: All labs were reviewed. As of August 2023 serum creatinine is 1.65 No significant proteinuria Assessment & Plan Assessment & Plan (1) CKD (chronic kidney disease) stage 3, GFR 30-59 ml/min: Code(s): N18.30 - Chronic kidney disease, stage 3 unspecified (2) Diabetes mellitus with chronic kidney disease: Code(s): E11.22 - Type 2 diabetes mellitus with diabetic chronic kidney disease Plan: 77-year-old man with stage III CKD in a setting of longstanding hypertension diabetes mellitus and coronary disease. He has no significant proteinuria. He probably has underlying hypertension nephrosclerosis. No evidence of any obstructive uropathy. I have initiated workup for CKD. The meantime I think he has a component of hypoperfusion and based on his volume status I will decrease the Lasix by 50% down to 20 mg a day. I have encouraged him to stand low-sodium diet He should watch her leg edema and if he has any shortness of breath or indication to increase the Lasix to 40 mg. Next I will recheck the renal panel in the next few weeks. I will also obtain renal ultrasonogram to assess echogenicity and to rule out any hydronephrosis. She returned office once the baseline workup is completed. For now agree with using SGLT-2 inhibitors for renal protection. Orders: Orders Creatinine Today N18.30 - Chronic kidney disease, stage 3 unspecified Electrolytes Today N18.30 - Chronic kidney disease, stage 3 unspecified Blood Urea Nitrogen Today N18.30 - Chronic kidney disease, stage 3 unspecified Calcium Today N18.30 - Chronic kidney disease, stage 3 unspecified US renal BI 1 Month N18.30 - Chronic kidney disease, stage 3 unspecified Coding Level of Care Code New Pt Level 4 (52281) Diagnoses CKD (chronic kidney disease) stage 3, GFR 30-59 ml/min N18.30 Diabetes mellitus with chronic kidney disease E11.22
[2023-10-13 11:27] VITALS: BP 118/70; PULSE 79; O2SAT 94; BMI 24.6
== END 2023-10-13 11:52 | disposition home or self-care (01) ==
PROVIDERS: PCP Internal Medicine; Visit Provider Internal Medicine Hypertension Specialist
DX: N18.30 Chronic kidney disease, stage 3 unspecified (principal); E11.22 Type 2 diabetes mellitus with diabetic chronic kidney disease
CPT/HCPCS: 99204

== ENCOUNTER 2023-11-12 10:04 | Outpatient (REF) | payer OTHER, SELFPAY ==
--- NOTE | ~2023-11-12 | US_ITS ---
EXAMINATION: US RETROPERITONEAL LIMITED (RENAL ONLY) CLINICAL INFORMATION: Chronic kidney disease, stage 3 unspecified. COMPARISON: CT abdomen and pelvis with contrast 10/16/2020. Ultrasound abdomen complete 11/24/2017 and 09/03/2016. X-ray abdomen KUB 02/09/2015. TECHNIQUE: Real-time imaging of the kidneys. Limited visualization due to bowel gas. FINDINGS: RIGHT KIDNEY: 11.4 x 5.0 x 5.7 cm (SAG x AP x TRV). No hydronephrosis. No renal calculi. Limited visualization. Upper pole 1.5 cm cyst with benign features. There is no indication for follow-up imaging. Renal cortical thickness is normal. LEFT KIDNEY: 11.6 x 5.5 x 5.5 cm (SAG x AP x TRV). No hydronephrosis. No renal calculi. Limited visualization. Renal cortical thickness is normal. US/US renal BI IMPRESSION: Right renal 1.5 cm upper pole cyst with benign features. There is no indication for follow-up imaging.
== END 2023-11-12 10:05 | disposition home or self-care (01) ==
LOC: HO.US 10:04
PROVIDERS: PCP Internal Medicine; Visit Provider Internal Medicine Hypertension Specialist
DX: N18.30 Chronic kidney disease, stage 3 unspecified (principal)
CPT/HCPCS: 76775

== ENCOUNTER 2023-11-27 11:54 | Outpatient (AMB) | payer OTHER, SELFPAY ==
[2023-11-27 11:56] VITALS: BP 115/60; PULSE 82; O2SAT 97; BMI 24.1
--- NOTE | 2023-11-27 11:56 | HO.NEPHOV ---
HPI HPI Comments History of Present Illness Details 77-year-old male with a history of CAD status post quadruple bypass, diabetes, hypertension, iron deficiency anemia, HLD, GERD, has been referred for CKD. Baseline serum creatinine has been around 1.2-1.4 mg/dL. After lowering Lasix 20mg QD and doing He has no edema. He has occasional lightheadedness. No urine symptoms. PFSH Medical History Iron deficiency anemia HTN (hypertension) Weight loss Acute bronchitis Sciatic nerve palsy, left Headache Chest pain Burning chest pain Left shoulder pain Constipation Foul smelling urine BPH (benign prostatic hyperplasia) Fatty liver Renal calculi Adrenal adenoma GERD (gastroesophageal reflux disease) Hypercholesterolemia Coronary artery disease Overweight (BMI 25.0-29.9) Type 2 diabetes mellitus with hyperglycemia Surgical History Hx of hand surgery History of transurethral resection of prostate History of esophagogastroduodenoscopy (EGD) H/O colonoscopy Hx of heart artery stent 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 History of nephrolithiasis History of prostate surgery History of arthroscopy of left shoulder History of tonsillectomy Family History Father Diabetes Hypertension CVD (cardiovascular disease) Mother Diabetes Social History Household Members: Family Housing: House Are you a primary farm or ranch animal caretaker to a significant other at home: No Do you presently have visiting nurse or other home services: No Alcohol intake: never Patient Tobacco Use Status: Former Tobacco user Tobacco use type: Cigarette Cigarette Packs Per Day: 1.5 e-Cigarette/Vaping Use: Never Used Second Hand Smoke Exposure: No service: No Current occupational status: retired Cognitive needs: Yes (cane) Hearing needs: No Vision needs: Yes (perscription glasses) Vital Signs 11/27/23 11:56 Height 5 ft 8 in Weight 158 lb 6 oz BMI 24.1 BP 115/60 Blood Pressure Location Lt brachial Position Sitting Pulse 82 Pulse Source Pulse Oximeter Pulse Oximetry (%) 97 Oxygen Delivery Method Room Air Physical Exam Vital Signs: Last Vital Signs Pulse 82 11/27/23 11:56 BP 115/60 11/27/23 11:56 Pulse Ox 97 11/27/23 11:56 Oxygen Delivery Method Room Air 11/27/23 11:56 BMI result Body Mass Index 24.1 Const General: comfortable Nutritional Appearance: well nourished Orientation/consciousness: patient oriented x3 HEENT Head: No normal to inspection Mouth: moist mucous membranes Neck Neck: Yes supple and Yes no JVD Resp Auscultation: clear to auscultation bilaterally, no rales and rub present Cardio Jugular venous distension: no JVD Palpation: no palpable S3 and no palpable S4 Heart sounds: no rubs GI Palpation (GI): Soft to palpation and nontender Percussion: No Fluid wave present General: Yes no CVA tenderness Back/Spine/Pelvis Back: no CVA tenderness Skin General skin exam: no rashes or lesions noted Neuro General: patient oriented x3 Extrem General: Yes no pedal edema and No clubbing Assessment & Plan Assessment & Plan (1) CKD (chronic kidney disease) stage 3, GFR 30-59 ml/min: Code(s): N18.30 - Chronic kidney disease, stage 3 unspecified (2) Diabetes mellitus with chronic kidney disease: Code(s): E11.22 - Type 2 diabetes mellitus with diabetic chronic kidney disease Plan 77-year-old man with stage III CKD in a setting of longstanding hypertension diabetes mellitus and coronary disease. He has no significant proteinuria. He probably has underlying hypertension nephrosclerosis. No evidence of any obstructive uropathy. Keep Lasix at 20 mg a day. I have encouraged him to stand low-sodium diet He should watch her leg edema and if he has any shortness of breath or indication to increase the Lasix to 40 mg. For now agree with using SGLT-2 inhibitors for renal protection. Orders: Orders Blood Urea Nitrogen Today N18.30 - Chronic kidney disease, stage 3 unspecified Creatinine Today N18.30 - Chronic kidney disease, stage 3 unspecified Calcium Today N18.30 - Chronic kidney disease, stage 3 unspecified Electrolytes Today N18.30 - Chronic kidney disease, stage 3 unspecified Coding Level of Care Code Est Pt Level 4 (62270) Diagnoses CKD (chronic kidney disease) stage 3, GFR 30-59 ml/min N18.30 Diabetes mellitus with chronic kidney disease E11.22 Results Reviewed Results Reviewed: Oct 2023: Renal sonogram RIGHT KIDNEY: 11.4 x 5.0 x 5.7 cm (SAG x AP x TRV). No hydronephrosis. No renal calculi. Limited visualization. Upper pole 1.5 cm cyst with benign features. There is no indication for follow-up imaging. Renal cortical thickness is normal. LEFT KIDNEY: 11.6 x 5.5 x 5.5 cm (SAG x AP x TRV). No hydronephrosis. No renal calculi. Limited visualization. Renal cortical thickness is normal. US/US renal BI IMPRESSION: Right renal 1.5 cm upper pole cyst with benign features. There is no indication for follow-up imaging. Nephrology Results: Hgb 13.8 g/dl (14.0-18.0) L 07/14/23 WBC 9.4 X10*3/uL (4.8-10.8) 07/14/23 Plt Count 247 X10*3/uL (160-400) 07/14/23 Sodium 138 mmol/L (135-145) 10/13/23 Potassium 4.0 mmol/L (3.3-5.1) 10/13/23 Chloride 100 mmol/L (96-108) 10/13/23 Carbon Dioxide 28 mmol/L (22-29) 10/13/23 BUN 17 mg/dL (9-16) H 10/13/23 Creatinine 1.54 mg/dL (0.5-1.4) H 10/13/23 Calcium 9.8 mg/dL (8.4-10.2) 10/13/23 Urine Protein Negative mg/dL (Neg-Trace) 07/14/23 Renal US 11/12/23
== END 2023-11-27 12:18 | disposition home or self-care (01) ==
PROVIDERS: PCP Internal Medicine; Visit Provider Internal Medicine Hypertension Specialist
DX: E11.22 Type 2 diabetes mellitus with diabetic chronic kidney disease (principal); N18.30 Chronic kidney disease, stage 3 unspecified
CPT/HCPCS: 99214

== ENCOUNTER 2023-11-27 11:54 | Outpatient (REF) | payer OTHER, SELFPAY ==
[2023-11-27 13:09] LABS: Anion Gap 11 (12-20); Blood Urea Nitrogen 11 mg/dL (9-16); Calcium 9.8 mg/dL (8.4-10.2); Carbon Dioxide 28 mmol/L (22-29); Chloride 104 mmol/L (96-108); Estimated Glomerular Filt Rate 53; Potassium 4.2 mmol/L (3.3-5.1); Sodium 139 mmol/L (135-145)
== END 2023-11-27 11:55 | disposition home or self-care (01) ==
LOC: HO.LAB 11:54
PROVIDERS: PCP Internal Medicine; Visit Provider Internal Medicine Hypertension Specialist
DX: E11.22 Type 2 diabetes mellitus with diabetic chronic kidney disease (principal); N18.30 Chronic kidney disease, stage 3 unspecified
CPT/HCPCS: 36415; 80051; 82310; 82565; 84520; 99212

== ENCOUNTER 2023-12-05 10:30 | Outpatient (AMB) | payer OTHER, SELFPAY ==
--- NOTE | 2023-12-05 10:50 | A.OFFPC_ITS ---
Vital Signs 12/05/23 10:54 Height 5 ft 8 in Weight 160 lb 8 oz BMI 24.4 BP 134/60 Blood Pressure Location Lt brachial Position Sitting Pulse 76 Pulse Source Pulse Oximeter Pulse Oximetry (%) 97 Oxygen Delivery Method Room Air Intake Visit Reasons: DM, Social Media Content Manager Required: No Accompanied by: Self / Same As Patient Allergies lisinopril Allergy (Mild, Verified 12/05/23 10:59) Cough Penicillins Allergy (Mild, Verified 12/05/23 10:59) RASH linagliptin [Tradjenta] Adverse Reaction (Mild, Verified 12/05/23 10:59) diarrhea Medication List - Last Reconciled 12/05/23 by Aaron Collazo MD ascorbic acid (vitamin C) (Vitamin C) 500 mg PO BID 90 days aspirin 81 mg PO DAILY blood sugar diagnostic As directed blood sugar diagnostic ([employer] Ultra Test strips) As directed check bs BID blood sugar diagnostic As directed check blood sugar 2 times a day cholecalciferol (vitamin D3) 25 mcg PO DAILY cyclobenzaprine 10 mg PO BEDTIME PRN dulaglutide (Trulicity) 1.5 mg (0.5 mL) subcut FR empagliflozin 25 mg PO DAILY finasteride (Proscar) 5 mg PO DAILY 90 days furosemide (Lasix) 40 mg PO DAILY 90 days gabapentin 300 mg PO BEDTIME glipizide ER 10 mg PO DAILY isosorbide mononitrate ER 1 tab PO DAILY magnesium oxide 400 mg PO DAILY metoprolol tartrate 25 mg PO TID 90 days omeprazole 20 mg PO QAM potassium chloride ER 20 mEq PO DAILY rosuvastatin 40 mg PO DAILY simethicone (Gas Relief (simethicone)) 125 mg PO BID-QID PRN vitamin E (dl, acetate) 100 units PO DAILY [walking cane As directed] Tobacco use date assessed: 12/05/23 Fall risk assessment: No Falls in past year Last assessed Fall Risk: 12/05/23 Dental Screening Dental Screen Date: 12/05/23 Did you have a dental visit in the last 12 months?: Yes Did you have a dental problem in the last 6 months where you did not have access to dental care?: No Was dental information given to patient?: Patient has dentist HPI DM, HPI Details 78-year-old male with uncontrolled diabe kaushal mellitus hypercholesterolemia GERD generalized anxiety disorder and coronary artery disease last seen in September 2023. Patient has chronic kidney disease and is being followed up by Nephrology diagnosis of stage III diagnosis of underlying hypertension nephrosclerosis keep Lasix at 20 mg once a day low-sodium diet. Renal ultrasound done showing a right renal 1.5 cm cyst benign [facility] Medical History (Updated 12/05/23 @ 11:33 by Aaron Collazo MD) Iron deficiency anemia HTN (hypertension) Weight loss Acute bronchitis Sciatic nerve palsy, left Headache Chest pain Burning chest pain Left shoulder pain Constipation Foul smelling urine BPH (benign prostatic hyperplasia) Fatty liver Renal calculi Adrenal adenoma GERD (gastroesophageal reflux disease) Hypercholesterolemia Coronary artery disease Overweight (BMI 25.0-29.9) Type 2 diabetes mellitus with hyperglycemia Surgical History Hx of hand surgery History of transurethral resection of prostate History of esophagogastroduodenoscopy (EGD) H/O colonoscopy Hx of heart artery stent 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 History of nephrolithiasis History of prostate surgery History of arthroscopy of left shoulder History of tonsillectomy Family History Father Diabetes Hypertension CVD (cardiovascular disease) Mother Diabetes Social History Household Members: Family Housing: House Are you a primary managed care manager to a significant other at home: No Do you presently have visiting nurse or other home services: No Alcohol intake: never Patient Tobacco Use Status: Former Tobacco user Tobacco use type: Cigarette Cigarette Packs Per Day: 1.5 e-Cigarette/Vaping Use: Never Used Second Hand Smoke Exposure: No service: No Current occupational status: retired Cognitive needs: Yes (cane) Hearing needs: No Vision needs: Yes (perscription glasses) Questionnaire PHQ-9 Over the last 2 weeks, how often have you been bothered by any of the following problems? 1. Little interest or pleasure in doing things: not at all 2. Feeling down, depressed, or hopeless: not at all 3. Trouble falling or staying asleep, or sleeping too much: not at all 4. Feeling tired or having little energy: not at all 5. Poor appetite or overeating: not at all 6. Feeling bad about yourself - or that you are a failure or have let yourself or your family down: not at all 7. Trouble concentrating on things, such as reading the newspaper or watching television: not at all 8. Moving or speaking so slowly that other people could have noticed. Or the opposite - being so fidgety or restless that you have been moving around a lot more than usual: not at all 9. Thoughts that you would be better off or of hurting yourself in some way: not at all Total score: 0 Depression Screening Interpretation: Negative Depression Screening Done: Yes 31071 - PHQ-9 Billing: Yes Source: Developed by Drs. Elbert Boogie, Esther Hilliard, Anurag Gupta and colleagues, with an educational elfego from [employer]. Thrive Questionnaire Date Thrive assessed: 12/05/23 I am a: Patient What is your living situation today?: I have a steady place to live Within the past 12 months, did the food you bought not last and you didn't have the money to get more?: Never true Within the past 12 months, did you worry whether your food would run out before you got money to buy more?: Never true Do you have trouble paying for medicines?: No Do you have trouble getting transportation to medical appointments?: No Do you have trouble paying your heating and electricity bill?: No Do you have trouble taking care of your child, family member or friend?: No Do you have trouble with day-to-day activities such as bathing, preparing meals, shopping, managing finances, etc.?: No Are you currently unemployed and looking for a job?: No Are you interested in more education?: No Please select the resources that you would like help with: None Currently or been in a relationship where the following occur: no concerns reported THRIVE Score: 0 AUDIT C Alcohol Use Questionnaire (AUDIT-C) 1. How often do you have a drink containing alcohol?: Never 3. How often do you have six or more drinks on one occasion?: Never Total Score: 0 TRINH-7 AMB Questionnaire TRINH-7 Date TRINH - 7 assessed: 12/05/23 Feeling nervous, anxious, or on edge: 0 = Not at all Not being able to stop or control worryin = Not at all Worrying too much about different things: 0 = Not at all Trouble relaxin = Not at all Being so restless that it is hard to sit still: 0 = Not at all Becoming easily annoyed or irritable: 0 = Not at all Feeling afraid as if something awful might happen: 0 = Not at all Total TRINH-7 score (0-4 normal; 5-9 mild; 10-14 moderate; 15-21 severe): 0 Source: Developed by Drs. Elbert Boogie, Esther Hilliard, Anurag Gupta and colleagues, with an educational elfego from [employer]. TRINH-7 Assessment Billing TRINH-7 Assessment Tool: TRINH-7 Assessment 86551 Physical exam (Primary Care) Vital Signs: Last Vital Signs Pulse 76 12/05/23 10:54 BP 134/60 12/05/23 10:54 Pulse Ox 97 12/05/23 10:54 Oxygen Delivery Method Room Air 12/05/23 10:54 BMI result Body Mass Index 24.4 Tobacco/Smoking Status: Tobacco use Status Tobacco use date assessed 12/05/23 12/05/23 11:00 Patient Tobacco Use Status Former Tobacco user 12/05/23 10:50 Tobacco use type Cigarette 12/05/23 10:50 e-Cigarette/Vaping Use Never Used 12/05/23 10:50 PHQ-9: PHQ-9 Score PHQ-9: Total score 0 12/05/23 11:40 Depression Screening Interpretation: Negative Thrive Assessment: Date of Thrive Assessment Date Thrive assessed 12/05/23 12/05/23 11:00 Currently or been in a relationship where the following occur: no concerns reported Const General: alert; No acute distress Eyes Conjunctivae: conjunctivae normal Resp Auscultation: clear to auscultation bilaterally Cardio Rate: regular rate Rhythm: regular rhythm GI Inspection: Yes normal to inspection Extrem General: Yes normal to inspection and No edema Results AMB Hemoglobin A1c AMB Hemoglobin A1c 9.2 % Last Edit by RIC Hunter on 12/05/23 11:40 Results Reviewed Results Reviewed: Laboratory Last Values Hgb A1c (Clinic) 9.2 % (4.0-6.0) H 12/05/23 10:45 Assessment and Plan Assessment & Plan (1) Type 2 diabetes mellitus with hyperglycemia: Comment: [facility] exam Code(s): E11.65 - Type 2 diabetes mellitus with hyperglycemia Qualifiers: Diabetes mellitus assisted insulin use: without long term care administrator use Qualified Code(s): E11.65 - Type 2 diabetes mellitus with hyperglycemia Plan: Decrease the amount of carbohydrate intake, pasta, bread, rice and potatoes are all sugar and that is aside from all the sweet stuff, remember that fruits are good but they are Sweet also. Hemoglobin A1c goal of less than 7.0. Patient on multiple medications glipizide 10 mg once a day Jardiance 25 mg once a day Trulicity 1.5 mg once a week. PAtient hAS A VERY HIGH aic 9.2 - did vacation in [place]- (2) Hypercholesterolemia: Code(s): E78.00 - Pure hypercholesterolemia, unspecified Plan: Avoid fried foods, chicken skin, eggs, butter margarine, pastries and meat. Be it pork or beef they have a lot of cholesterol LDL goal of less than 70 and triglyceride of less than 150 September 2023 last blood work on rosuvastatin 40 mg once a day (3) GERD (gastroesophageal reflux disease): Code(s): K21.9 - Gastro-esophageal reflux disease without esophagitis Qualifiers: Esophagitis presence: without esophagitis Qualified Code(s): K21.9 - Gastro-esophageal reflux disease without esophagitis Plan: Avoid the foods that causes that usually spicy foods, tomato products, juices, coffee, soda and foods that your sensitive to. After eating do not lie down, allow 3-4 hours before in lie down. And keep the head of bed above 30 degrees to avoid the acid from going up. (4) Generalized anxiety disorder: Code(s): F41.1 - Generalized anxiety disorder (5) BPH (benign prostatic hyperplasia): Code(s): N40.0 - Benign prostatic hyperplasia without lower urinary tract symptoms Plan: Continue with Proscar (6) CKD (chronic kidney disease) stage 3, GFR 30-59 ml/min: Code(s): N18.30 - Chronic kidney disease, stage 3 unspecified Plan: Keep well hydrated. Lasix brought down with improvement of the renal function. (7) HTN (hypertension): Code(s): I10 - Essential (primary) hypertension Plan: continue with BP med Orders: Orders AMB Hemoglobin A1c Today E11.22 - Type 2 diabetes mellitus with diabetic chronic kidney disease Medications: Changed From furosemide (Lasix) 40 mg PO DAILY 90 days 90 tabs 2RF To furosemide (Lasix) 20 mg (1/2 x 40 mg) PO DAILY 90 days 45 tabs 2RF Refilled dulaglutide (Trulicity) 1.5 mg (0.5 mL) subcut FR 2 mL 12RF blood sugar diagnostic ([employer] Ultra Test strips) As directed check bs BID 2 ea 3RF E11.65 - Type 2 diabetes mellitus with hyperglycemia Coding Level of Care Code Est Pt Level 4 (71608) Diagnoses Type 2 diabetes mellitus with hyperglycemia, without long-term current use of insulin E11.65 Diabetes mellitus long term care administrator insulin use: without assisted use Hypercholesterolemia E78.00 Gastroesophageal reflux disease without esophagitis K21.9 Esophagitis presence: without esophagitis Generalized anxiety disorder F41.1 BPH (benign prostatic hyperplasia) N40.0 CKD (chronic kidney disease) stage 3, GFR 30-59 ml/min N18.30 HTN (hypertension) I10 Additional Codes TRINH-7 Assessment Billing - TRINH-7 Assessment Tool: TRINH-7 Assessment [id number] ([id number])
[2023-12-05 10:54] VITALS: BP 134/60; PULSE 76; O2SAT 97; BMI 24.4
== END 2023-12-05 11:49 | disposition home or self-care (01) ==
PROVIDERS: PCP Internal Medicine; Visit Provider Internal Medicine
DX: I12.9 Hypertensive chronic kidney disease with stage 1 through stage 4 chronic kidney disease, or unspecified chronic kidney disease (principal); E11.65 Type 2 diabetes mellitus with hyperglycemia; N18.30 Chronic kidney disease, stage 3 unspecified; E11.22 Type 2 diabetes mellitus with diabetic chronic kidney disease; E78.00 Pure hypercholesterolemia, unspecified; K21.9 Gastro-esophageal reflux disease without esophagitis; F41.1 Generalized anxiety disorder; N40.0 Benign prostatic hyperplasia without lower urinary tract symptoms
CPT/HCPCS: 83036; 99214

== ENCOUNTER 2024-01-12 09:50 | Outpatient (AMB) | payer OTHER, SELFPAY ==
[2024-01-12 10:10] VITALS: BMI 26.1
--- NOTE | 2024-01-12 10:10 | A.OFFVIS_ITS ---
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: No Allergies lisinopril Allergy (Mild, Verified 01/12/24 10:20) Cough Penicillins Allergy (Mild, Verified 01/12/24 10:20) RASH linagliptin [Tradjenta] Adverse Reaction (Mild, Verified 01/12/24 10:20) diarrhea Medication List - Last Reconciled 01/12/24 by Crow Grier MD ascorbic acid (vitamin C) (Vitamin C) 500 mg PO BID 90 days aspirin 81 mg PO DAILY blood sugar diagnostic As directed blood sugar diagnostic ([id number] Ultra Test strips) As directed check bs BID blood sugar diagnostic As directed check blood sugar 2 times a day cholecalciferol (vitamin D3) 25 mcg PO DAILY cyclobenzaprine 10 mg PO BEDTIME PRN dulaglutide (Trulicity) 1.5 mg (0.5 mL) subcut FR empagliflozin 25 mg PO DAILY finasteride (Proscar) 5 mg PO DAILY 90 days furosemide (Lasix) 20 mg (1/2 x 40 mg) PO DAILY 90 days gabapentin 300 mg PO BEDTIME glipizide ER 10 mg PO DAILY isosorbide mononitrate ER 30 mg PO DAILY magnesium oxide 400 mg PO DAILY metoprolol tartrate 25 mg PO TID 90 days omeprazole 20 mg PO QAM potassium chloride ER 20 mEq PO DAILY rosuvastatin 40 mg PO DAILY simethicone (Gas Relief (simethicone)) 125 mg PO BID-QID PRN vitamin B complex (B Complex-Vitamin B12 tablet) 1 tab PO DAILY vitamin E (dl, acetate) 100 units PO DAILY [walking cane As directed] zinc acetate 25 mg PO DAILY HPI HPI Comments History of Present Illness Details Calderon comes for follow-up. Within last year he has had a myocardial perfusion imaging which is within normal limits and echocardiogram shows normal LV ejection fraction. He has been doing well. Denies any exertional symptoms. No worsening shortness of breath, orthopnea, PND. Denies any prolonged palpitation irregular heartbeat. No exertional chest pain. He has been remaining active in his day-to-day life without any issues. Takes all his medications. Last LDL in September at 49 mg/dL. [facility] Medical History Iron deficiency anemia HTN (hypertension) Weight loss Acute bronchitis Sciatic nerve palsy, left Headache Chest pain Burning chest pain Left shoulder pain Constipation Foul smelling urine BPH (benign prostatic hyperplasia) Fatty liver Renal calculi Adrenal adenoma GERD (gastroesophageal reflux disease) Hypercholesterolemia Coronary artery disease Overweight (BMI 25.0-29.9) Type 2 diabetes mellitus with hyperglycemia Surgical History Hx of hand surgery History of transurethral resection of prostate History of esophagogastroduodenoscopy (EGD) H/O colonoscopy Hx of heart artery stent 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 History of nephrolithiasis History of prostate surgery History of arthroscopy of left shoulder History of tonsillectomy Family History Father Diabetes Hypertension CVD (cardiovascular disease) Mother Diabetes Social History Household Members: Family Housing: House Are you a primary rn progressive care to a significant other at home: No Do you presently have visiting nurse or other home services: No Alcohol intake: never Patient Tobacco Use Status: Former Tobacco user Tobacco use type: Cigarette Cigarette Packs Per Day: 1.5 e-Cigarette/Vaping Use: Never Used Second Hand Smoke Exposure: No service: No Current occupational status: retired Cognitive needs: Yes (cane) Hearing needs: No Vision needs: Yes (perscription glasses) Review of Systems Const Denies chills, Denies fatigue, Denies fever(s), Denies frequent falls, Denies weakness, Denies weight gain and Denies weight loss ENT Denies dizziness Card Denies chest pain, Denies leg edema, Denies lightheadedness, Denies palpitations, Denies dyspnea, Denies dyspnea on exertion, Denies orthopnea and Denies other (loss of consciousness) Resp Denies cough, Denies dyspnea and Denies dyspnea on exertion GI Denies hematochezia and Denies change in stool character Musc Denies abnormal gait, Denies muscle weakness, Denies numbness, Denies radiating pain into limb and Denies tingling Neuro Denies abnormal gait, Denies dizziness, Denies frequent falls, Denies numbness, Denies tingling and Denies weakness Endo Denies fatigue and Denies palpitations Physical Exam Vital Signs: BMI result Body Mass Index 26.1 Const General: cooperative, healthy appearing, comfortable and no acute distress Orientation/consciousness: patient oriented x3 Neck Neck: Yes normal visual inspection Resp Effort & Inspection: normal respiratory effort Auscultation: clear to auscultation bilaterally, no crackles, no rales, no rhonchi and no wheezes Cardio Jugular venous distension: no JVD Rate: regular rate Rhythm: regular rhythm Heart sounds: S1 normal heart sound present, S2 normal heart sound present, no gallops, no murmurs and no rubs Neuro General: patient oriented x3 Extrem General: Yes normal to inspection, No no pedal edema and No calf tenderness Psych Appearance: grossly normal Mental Status: mental status grossly normal Speech and movement: Normal speech and movement present Assessment & Plan Assessment & Plan (1) Coronary artery disease: Comment: nuclear stress June 2019 in failure lateral hypokinesis ejection fraction 55% CABG August [address] Rhodes Code(s): I25.10 - Atherosclerotic heart disease of [place] coronary artery without angina pectoris Qualifiers: Associated angina: without angina Coronary Disease-Associated Artery/Lesion type: [place] artery [place] vs. transplanted heart: [place] heart Qualified Code(s): I25.10 - Atherosclerotic heart disease of [place] coronary artery without angina pectoris Plan: CAD status post 4 vessel coronary artery bypass grafting in 2019. Myocardial perfusion imaging within last year within normal limits with no evidence of ischemia. Continue aggressive medical therapy. Importance of this was discussed. Continue lifelong aspirin therapy. Continue aggressive blood pressure control, see below. Continue diabetes control goal hemoglobin A1c less than 7% being pursue 3 our office. LDL is extremely well optimized on current high-intensity statin therapy. Continue the same. (2) HTN (hypertension): Code(s): I10 - Essential (primary) hypertension Plan: Hypertension which is currently well optimized advised to monitor blood pressure at home maintain a log. Goal blood pressure less than 130/84. Low-salt diet was discussed . Advised to maintain activity level as tolerated. Will follow up in the clinic in 6 months time on his request. Thank you for allowing me to partake in his care Coding Level of Care Code Est Pt Level 4 (33622) Diagnoses Coronary artery disease involving [place] coronary artery of [place] heart without angina pectoris I25.10 Associated angina: without angina Coronary Disease-Associated Artery/Lesion type: [place] artery [place] vs. transplanted heart: [place] heart HTN (hypertension) I10
== END 2024-01-12 10:36 | disposition home or self-care (01) ==
PROVIDERS: PCP Internal Medicine; Visit Provider Internal Medicine Cardiovascular Disease
DX: I25.10 Atherosclerotic heart disease of native coronary artery without angina pectoris (principal); I10 Essential (primary) hypertension
CPT/HCPCS: 99214

== ENCOUNTER → 2024-01-12 09:50 | Outpatient (BNVA) | payer OTHER, SELFPAY | PROVIDERS: PCP Internal Medicine; Visit Provider Internal Medicine Cardiovascular Disease | DX: I25.10 Atherosclerotic heart disease of native coronary artery without angina pectoris (principal); I10 Essential (primary) hypertension | CPT/HCPCS: 99212 ==

== ENCOUNTER 2024-02-13 12:14 | Outpatient (AMB) | payer OTHER, SELFPAY ==
[2024-02-13 12:42] VITALS: BP 126/68; PULSE 80; O2SAT 96; BMI 24.5
--- NOTE | 2024-02-13 12:42 | MHC.PC.OV ---
Vital Signs 02/13/24 12:42 Height 5 ft 8 in Weight 161 lb 0.6 oz BMI 24.5 BP 126/68 Blood Pressure Location Lt brachial Position Sitting Pulse 80 Pulse Source Pulse Oximeter Pulse Oximetry (%) 96 Oxygen Delivery Method Room Air Intake Visit Reasons: pain from LT side head radiated to neck Analysis Engineer Required: No Allergies lisinopril Allergy (Mild, Verified 02/13/24 12:43) Cough Penicillins Allergy (Mild, Verified 02/13/24 12:43) RASH linagliptin [Tradjenta] Adverse Reaction (Mild, Verified 02/13/24 12:43) diarrhea Tobacco use date assessed: 02/13/24 Fall risk assessment: No Falls in past year Last assessed Fall Risk: 02/13/24 Dental Screening Dental Screen Date: 12/05/23 Did you have a dental visit in the last 12 months?: Yes Did you have a dental problem in the last 6 months where you did not have access to dental care?: No Was dental information given to patient?: Patient has dentist HPI pain from LT side head radiated to neck HPI Details 78-year-old male with uncontrolled diabetes mellitus hypercholesterolemia GERD generalized anxiety disorder chronic kidney disease BPH and hypertension last seen in November 2023. Review of the notes patient has followed up with Cardiology December 2023 has had myocardial perfusion imaging last year normal. Echocardiogram normal. complain of L neck pain and states ear also ppainful - complains of L frontal GARCIA also. dicussed that he has nitrates in his med [facility] Medical History (Updated 02/13/24 @ 13:21 by Aaron Collazo MD) Headache Iron deficiency anemia HTN (hypertension) Weight loss Acute bronchitis Sciatic nerve palsy, left Chest pain Burning chest pain Left shoulder pain Constipation Foul smelling urine BPH (benign prostatic hyperplasia) Fatty liver Renal calculi Adrenal adenoma GERD (gastroesophageal reflux disease) Hypercholesterolemia Coronary artery disease Overweight (BMI 25.0-29.9) Type 2 diabetes mellitus with hyperglycemia Surgical History Hx of hand surgery History of transurethral resection of prostate History of esophagogastroduodenoscopy (EGD) H/O colonoscopy Hx of heart artery stent 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 History of nephrolithiasis History of prostate surgery History of arthroscopy of left shoulder History of tonsillectomy Family History Father Diabetes Hypertension CVD (cardiovascular disease) Mother Diabetes Social History Household Members: Family Housing: House Are you a primary career coordinator to a significant other at home: No Do you presently have visiting nurse or other home services: No Alcohol intake: never Patient Tobacco Use Status: Former Tobacco user Tobacco use type: Cigarette Cigarette Packs Per Day: 1.5 e-Cigarette/Vaping Use: Never Used Second Hand Smoke Exposure: No service: No Current occupational status: retired Cognitive needs: Yes (cane) Hearing needs: No Vision needs: Yes (perscription glasses) Questionnaire Thrive Questionnaire Date Thrive assessed: 12/05/23 AUDIT C Alcohol Use Questionnaire (AUDIT-C) 1. How often do you have a drink containing alcohol?: Never 3. How often do you have six or more drinks on one occasion?: Never Total Score: 0 TRINH-7 AMB Questionnaire TRINH-7 Date TRINH - 7 assessed: 12/05/23 Source: Developed by Drs. Elbert Boogie, Esther Hilliard, Anurag Gupta and colleagues, with an educational elfego from [employer]. Physical exam (Primary Care) Vital Signs: Last Vital Signs Pulse 80 02/13/24 12:42 BP 126/68 02/13/24 12:42 Pulse Ox 96 02/13/24 12:42 Oxygen Delivery Method Room Air 02/13/24 12:42 BMI result Body Mass Index 24.5 Tobacco/Smoking Status: Tobacco use Status Tobacco use date assessed 02/13/24 02/13/24 12:43 Patient Tobacco Use Status Former Tobacco user 02/13/24 12:43 Tobacco use type Cigarette 02/13/24 12:43 e-Cigarette/Vaping Use Never Used 02/13/24 12:43 Thrive Assessment: Date of Thrive Assessment Date Thrive assessed 12/05/23 02/13/24 12:43 Const General: alert; No acute distress HENPR Head images: 1. Vague ill-defined mass on the left posterior neck area and tender on palpation Eyes Conjunctivae: conjunctivae normal Resp Auscultation: clear to auscultation bilaterally Cardio Rate: regular rate Rhythm: regular rhythm GI Inspection: Yes normal to inspection Extrem General: Yes normal to inspection and No edema Assessment and Plan Assessment & Plan (1) Type 2 diabetes mellitus with hyperglycemia: Comment: [facility] exam Code(s): E11.65 - Type 2 diabetes mellitus with hyperglycemia Qualifiers: Diabetes mellitus long term care pharmacist insulin use: without long term care pharmacist use Qualified Code(s): E11.65 - Type 2 diabetes mellitus with hyperglycemia Plan: Decrease the amount of carbohydrate intake, pasta, bread, rice and potatoes are all sugar and that is aside from all the sweet stuff, remember that fruits are good but they are Sweet also. Hemoglobin A1c goal of less than 7.0. Patient on Trulicity 1.5 mg once a week Jardiance 25 mg once a day glipizide 10 mg once a day. Patient is having a hard time with the Trulicity supply. Otherwise blood sugar recently was good now. (2) Hypercholesterolemia: Code(s): E78.00 - Pure hypercholesterolemia, unspecified Plan: Avoid fried foods, chicken skin, eggs, butter margarine, pastries and meat. Be it pork or beef they have a lot of cholesterol LDL goal of less than 70 and triglyceride of less than 150. Patient on rosuvastatin 40 mg once a day (3) GERD (gastroesophageal reflux disease): Code(s): K21.9 - Gastro-esophageal reflux disease without esophagitis Qualifiers: Esophagitis presence: without esophagitis Qualified Code(s): K21.9 - Gastro-esophageal reflux disease without esophagitis Plan: Avoid the foods that causes that usually spicy foods, tomato products, juices, coffee, soda and foods that your sensitive to. After eating do not lie down, allow 3-4 hours before in lie down. And keep the head of bed above 30 degrees to avoid the acid from going up. (4) Generalized anxiety disorder: Code(s): F41.1 - Generalized anxiety disorder Plan: Continue with present medication (5) Coronary artery disease: Comment: nuclear stress June 2019 in failure lateral hypokinesis ejection fraction 55% CABG August [address] Rhodes Code(s): I25.10 - Atherosclerotic heart disease of [place] coronary artery without angina pectoris Qualifiers: Coronary Disease-Associated Artery/Lesion type: [place] artery [place] vs. transplanted heart: [place] heart Associated angina: without angina Qualified Code(s): I25.10 - Atherosclerotic heart disease of [place] coronary artery without angina pectoris Plan: Control the cholesterol, weight, blood pressure, diabetes patient follows up with Cardiology doing good needs to get blood sugars (6) CKD (chronic kidney disease) stage 3, GFR 30-59 ml/min: Code(s): N18.30 - Chronic kidney disease, stage 3 unspecified Plan: Avoid NSAIDs keep well hydrated. (7) HTN (hypertension): Code(s): I10 - Essential (primary) hypertension Plan: Continue with blood pressure medication. Decrease salt intake and exercise patient is on metoprolol 25 mg 3 times a day (8) Neck mass: Comment: Left posterior neck mass Code(s): R22.1 - Localized swelling, mass and lump, neck Plan: Will request for CT scan (9) Headache: Code(s): R51.9 - Headache, unspecified Plan: Will order for CT scan. Orders: Orders CT head/brain wo IV con Today R51.9 - Headache, unspecified CT soft tissue neck wo IV con Today R22.1 - Localized swelling, mass and lump, neck Coding Level of Care Code Est Pt Level 4 (26426) Diagnoses Type 2 diabetes mellitus with hyperglycemia, without long-term current use of insulin E11.65 Diabetes mellitus long term care pharmacist insulin use: without long term care pharmacist use Hypercholesterolemia E78.00 Gastroesophageal reflux disease without esophagitis K21.9 Esophagitis presence: without esophagitis Generalized anxiety disorder F41.1 Coronary artery disease involving [place] coronary artery of [place] heart without angina pectoris I25.10 Coronary Disease-Associated Artery/Lesion type: [place] artery [place] vs. transplanted heart: [place] heart Associated angina: without angina CKD (chronic kidney disease) stage 3, GFR 30-59 ml/min N18.30 HTN (hypertension) I10 Neck mass R22.1 Headache R51.9
== END 2024-02-13 13:22 | disposition home or self-care (01) ==
PROVIDERS: PCP Internal Medicine; Visit Provider Internal Medicine
DX: E11.65 Type 2 diabetes mellitus with hyperglycemia (principal); N18.30 Chronic kidney disease, stage 3 unspecified; E78.00 Pure hypercholesterolemia, unspecified; K21.9 Gastro-esophageal reflux disease without esophagitis; F41.1 Generalized anxiety disorder; I25.10 Atherosclerotic heart disease of native coronary artery without angina pectoris; I10 Essential (primary) hypertension; R22.1 Localized swelling, mass and lump, neck; R51.9 Headache, unspecified
CPT/HCPCS: 99214

== ENCOUNTER 2024-03-10 07:42 | Outpatient (REF) | payer OTHER, SELFPAY ==
--- NOTE | ~2024-03-10 | CT_ITS ---
EXAMINATION: CT HEAD WITHOUT CONTRAST CLINICAL INFORMATION: Headache COMPARISON: CT scan of brain on 12/25/2021 TECHNIQUE: Contiguous axial imaging was performed from the skull base to vertex without intravenous administration of contrast. This CT examination was performed using dose optimization techniques as appropriate, variously including the following: *Automated exposure control *Adjustment of mA and/or kV according to patient size (this includes techniques or standardized protocols for targeted exams where dose is matched to indication/reason for exam; i.e. extremities or head) *Use of iterative reconstruction technique DLP: 879 mGy-cm FINDINGS: Ventricles, sulci and cisterns are dilated. Bilateral frontal and parietal subcortical and deep white matter show extensive abnormal decreased in attenuation. There is no midline shift, no abnormal intra- or extra- axial fluid accumulation. Timmons and white matter differentiation is normal. Bone window images show no evidence of skull fracture. CT/CT head/brain wo IV con IMPRESSION: 1. 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 2. No intracranial hemorrhage or skull fracture is seen. 3. No evidence of space occupying lesion could be found. 4. The current plain CT scan of the brain shows no diagnostic evidence of acute cerebral infarction.
== END 2024-03-10 07:43 | disposition home or self-care (01) ==
LOC: HO.CT 07:42
PROVIDERS: PCP Internal Medicine; Visit Provider Internal Medicine
DX: R51.9 Headache, unspecified (principal)
CPT/HCPCS: 70450

== ENCOUNTER 2024-03-12 11:32 | Outpatient (AMB) | payer OTHER, SELFPAY ==
--- NOTE | 2024-03-12 11:44 | MHC.PC.OV ---
Vital Signs 03/12/24 11:48 03/12/24 11:58 Height 5 ft 8 in Weight 164 lb BMI 24.9 BP 142/90 H 120/66 Blood Pressure Location Lt brachial Lt brachial Position Sitting Sitting Pulse 76 Pulse Source Pulse Oximeter Pulse Oximetry (%) 96 Oxygen Delivery Method Room Air Intake Visit Reasons: DM Intake Note: Patient is here to follow up on DM. Hog Scalder Required: No Church Musician: Not Required per policy Accompanied by: Self / Same As Patient Allergies lisinopril Allergy (Mild, Verified 03/12/24 11:45) Cough Penicillins Allergy (Mild, Verified 03/12/24 11:45) RASH linagliptin [Tradjenta] Adverse Reaction (Mild, Verified 03/12/24 11:45) diarrhea Medication List - Last Reconciled 03/12/24 by Aaron Collazo MD ascorbic acid (vitamin C) (Vitamin C) 500 mg PO BID 90 days aspirin 81 mg PO DAILY blood sugar diagnostic As directed blood sugar diagnostic ([employer] Ultra Test strips) As directed check bs BID blood sugar diagnostic As directed check blood sugar 2 times a day cholecalciferol (vitamin D3) 25 mcg PO DAILY cyclobenzaprine 10 mg PO BEDTIME PRN dulaglutide 3 mg (0.5 mL) subcut FR 30 days empagliflozin 25 mg PO DAILY finasteride (Proscar) 5 mg PO DAILY 90 days furosemide (Lasix) 20 mg (1/2 x 40 mg) PO DAILY 90 days gabapentin 300 mg PO BEDTIME glipizide ER 10 mg PO DAILY isosorbide mononitrate ER 30 mg PO DAILY magnesium oxide 400 mg PO DAILY metoprolol tartrate 25 mg PO TID 90 days omeprazole 20 mg PO QAM potassium chloride ER 20 mEq PO DAILY rosuvastatin 40 mg PO DAILY simethicone (Gas Relief (simethicone)) 125 mg PO BID-QID PRN vitamin B complex (B Complex-Vitamin B12 tablet) 1 tab PO DAILY vitamin E (dl, acetate) 100 units PO DAILY [walking cane As directed] zinc acetate 25 mg PO DAILY Tobacco use date assessed: 03/12/24 Fall risk assessment: 1 Fall in past year Last assessed Fall Risk: 03/12/24 Dental Screening Dental Screen Date: 12/05/23 HPI DM HPI Details 78-year-old male with diabetes mellitus uncontrolled hypercholesterolemia GERD coronary artery disease chronic kidney disease hypertension last seen in January 2024. Patient is here for follow-up. Patient had a CT scan of the head but results are pending. [facility] Medical History (Updated 02/13/24 @ 13:21 by Aaron Collazo MD) Headache Iron deficiency anemia HTN (hypertension) Weight loss Acute bronchitis Sciatic nerve palsy, left Chest pain Burning chest pain Left shoulder pain Constipation Foul smelling urine BPH (benign prostatic hyperplasia) Fatty liver Renal calculi Adrenal adenoma GERD (gastroesophageal reflux disease) Hypercholesterolemia Coronary artery disease Overweight (BMI 25.0-29.9) Type 2 diabetes mellitus with hyperglycemia Surgical History Hx of hand surgery History of transurethral resection of prostate History of esophagogastroduodenoscopy (EGD) H/O colonoscopy Hx of heart artery stent 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 History of nephrolithiasis History of prostate surgery History of arthroscopy of left shoulder History of tonsillectomy Family History Father Diabetes Hypertension CVD (cardiovascular disease) Mother Diabetes Social History Household Members: Family Housing: House Are you a primary respite care provider to a significant other at home: No Do you presently have visiting nurse or other home services: No Alcohol intake: never Patient Tobacco Use Status: Former Tobacco user Tobacco use type: Cigarette Cigarette Packs Per Day: 1.5 e-Cigarette/Vaping Use: Never Used Second Hand Smoke Exposure: Yes service: No Current occupational status: retired Cognitive needs: Yes (cane) Hearing needs: No Vision needs: Yes (perscription glasses) Questionnaire Thrive Questionnaire Date Thrive assessed: 12/05/23 TRINH-7 AMB Questionnaire TRINH-7 Date TRINH - 7 assessed: 12/05/23 Source: Developed by Drs. Elbert Boogie, Esther Hilliard, Anurag Gupta and colleagues, with an educational elfego from [employer] Physical exam (Primary Care) Vital Signs: Last Vital Signs Pulse 76 03/12/24 11:48 BP 120/66 03/12/24 11:58 Pulse Ox 96 03/12/24 11:48 Oxygen Delivery Method Room Air 03/12/24 11:48 BMI result Body Mass Index 24.9 Tobacco/Smoking Status: Tobacco use Status Tobacco use date assessed 03/12/24 03/12/24 11:46 Patient Tobacco Use Status Former Tobacco user 03/12/24 11:46 Tobacco use type Cigarette 03/12/24 11:46 e-Cigarette/Vaping Use Never Used 03/12/24 11:46 Thrive Assessment: Date of Thrive Assessment Date Thrive assessed 12/05/23 03/12/24 11:46 Const General: alert; No acute distress Eyes Conjunctivae: conjunctivae normal Resp Auscultation: clear to auscultation bilaterally Cardio Rate: regular rate Rhythm: regular rhythm GI Inspection: Yes normal to inspection Extrem General: Yes normal to inspection and No edema Results AMB Hemoglobin A1c AMB Hemoglobin A1c 9.5 % Last Edit by TYSON Etienne on 03/12/24 12:01 Results Reviewed Results Reviewed: Laboratory Last Values Hgb A1c (Clinic) 9.5 % (4.0-6.0) H 03/12/24 11:48 Assessment and Plan Assessment & Plan (1) Headache: Code(s): R51.9 - Headache, unspecified Plan: Patient was requested to have a CT scan and results are not back. (2) Type 2 diabetes mellitus with hyperglycemia: Comment: [facility] exam Code(s): E11.65 - Type 2 diabetes mellitus with hyperglycemia Qualifiers: Diabetes mellitus custodial insulin use: without custodial use Qualified Code(s): E11.65 - Type 2 diabetes mellitus with hyperglycemia Plan: Decrease the amount of carbohydrate intake, pasta, bread, rice and potatoes are all sugar and that is aside from all the sweet stuff, remember that fruits are good but they are Sweet also. Hemoglobin A1c goal of less than 7.0. Patient is on Trulicity 1.5 mg once a week Jardiance 25 mg once a day glipizide 10 mg once a day (3) Hypercholesterolemia: Code(s): E78.00 - Pure hypercholesterolemia, unspecified Plan: Avoid fried foods, chicken skin, eggs, butter margarine, pastries and meat. Be it pork or beef they have a lot of cholesterol LDL goal of less than 70 and triglyceride of less than 150 on rosuvastatin 40 mg once a day September 2023 at goal Orders: Orders AMB Hemoglobin A1c Today E11.22 - Type 2 diabetes mellitus with diabetic chronic kidney disease Medications: Changed From dulaglutide (Trulicity) 1.5 mg (0.5 mL) subcut FR 2 mL 12RF To dulaglutide 3 mg (0.5 mL) subcut FR 30 days 2.5 mL 12RF Coding Level of Care Code Est Pt Level 4 (58958) Diagnoses Headache R51.9 Type 2 diabetes mellitus with hyperglycemia, without long-term current use of insulin E11.65 Diabetes mellitus custodial insulin use: without terminal operations manager use Hypercholesterolemia E78.00
[2024-03-12 11:48] VITALS: BP 142/90; PULSE 76; O2SAT 96; BMI 24.9
[2024-03-12 11:58] VITALS: BP 120/66
== END 2024-03-12 12:22 | disposition home or self-care (01) ==
PROVIDERS: PCP Internal Medicine; Visit Provider Internal Medicine
DX: R51.9 Headache, unspecified (principal); E11.65 Type 2 diabetes mellitus with hyperglycemia; E78.00 Pure hypercholesterolemia, unspecified
CPT/HCPCS: 83036; 99214

== ENCOUNTER 2024-03-25 11:23 | Outpatient (AMB) | payer OTHER, SELFPAY ==
[2024-03-25 11:30] VITALS: BP 104/62; PULSE 75; O2SAT 97; BMI 24.8
--- NOTE | 2024-03-25 11:30 | HO.NEPHOV_ITS ---
Vital Signs 03/25/24 11:30 Height 5 ft 8 in Weight 163 lb BMI 24.8 BP 104/62 Blood Pressure Location Lt brachial Position Sitting Pulse 75 Pulse Source Pulse Oximeter Pulse Oximetry (%) 97 Oxygen Delivery Method Room Air Intake Visit Reasons: CKD/ confirmed New Car Salesperson Required: No Accompanied by: Self / Same As Patient Allergies lisinopril Allergy (Mild, Verified 03/25/24 11:35) Cough Penicillins Allergy (Mild, Verified 03/25/24 11:35) RASH linagliptin [Tradjenta] Adverse Reaction (Mild, Verified 03/25/24 11:35) diarrhea HPI Comments Details: 77-year-old male with a history of CAD status post quadruple bypass, diabetes, hypertension, iron deficiency anemia, HLD, GERD, has been referred for CKD. Baseline serum creatinine has been around 1.2-1.4 mg/dL. After lowering Lasix 20mg QD and doing He has no edema. He has occasional lightheadedness. No urine symptoms. [facility]LY [facility], [facility] Medical History (Updated 02/13/24 @ 13:21 by Aaron Collazo MD) Headache Iron deficiency anemia HTN (hypertension) Weight loss Acute bronchitis Sciatic nerve palsy, left Chest pain Burning chest pain Left shoulder pain Constipation Foul smelling urine BPH (benign prostatic hyperplasia) Fatty liver Renal calculi Adrenal adenoma GERD (gastroesophageal reflux disease) Hypercholesterolemia Coronary artery disease Overweight (BMI 25.0-29.9) Type 2 diabetes mellitus with hyperglycemia Surgical History Hx of hand surgery History of transurethral resection of prostate History of esophagogastroduodenoscopy (EGD) H/O colonoscopy Hx of heart artery stent 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 History of nephrolithiasis History of prostate surgery History of arthroscopy of left shoulder History of tonsillectomy Family History Father Diabetes Hypertension CVD (cardiovascular disease) Mother Diabetes Social History Household Members: Family Housing: House Are you a primary outdoor emergency care technician to a significant other at home: No Do you presently have visiting nurse or other home services: No Alcohol intake: never Patient Tobacco Use Status: Former Tobacco user Tobacco use type: Cigarette Cigarette Packs Per Day: 1.5 e-Cigarette/Vaping Use: Never Used Second Hand Smoke Exposure: Yes service: No Current occupational status: retired Cognitive needs: Yes (cane) Hearing needs: No Vision needs: Yes (perscription glasses) Physical Exam Vital Signs: Last Vital Signs Pulse 75 03/25/24 11:30 BP 104/62 03/25/24 11:30 Pulse Ox 97 03/25/24 11:30 Oxygen Delivery Method Room Air 03/25/24 11:30 BMI result Body Mass Index 24.8 Const General: comfortable Nutritional Appearance: well nourished Orientation/consciousness: patient oriented x3 HEENT Head: No normal to inspection Mouth: moist mucous membranes Neck Neck: Yes supple and Yes no JVD Resp Auscultation: clear to auscultation bilaterally, no rales and rub present Cardio Jugular venous distension: no JVD Palpation: no palpable S3 and no palpable S4 Heart sounds: no rubs GI Palpation (GI): Soft to palpation and nontender Percussion: No Fluid wave present General: Yes no CVA tenderness Back/Spine/Pelvis Back: no CVA tenderness Skin General skin exam: no rashes or lesions noted Neuro General: patient oriented x3 Extrem General: Yes no pedal edema and No clubbing Results Reviewed Nephrology Results: Sodium 139 mmol/L (135-145) 11/27/23 Potassium 4.2 mmol/L (3.3-5.1) 11/27/23 Chloride 104 mmol/L (96-108) 11/27/23 Carbon Dioxide 28 mmol/L (22-29) 11/27/23 BUN 11 mg/dL (9-16) 11/27/23 Creatinine 1.30 mg/dL (0.5-1.4) 11/27/23 Calcium 9.8 mg/dL (8.4-10.2) 11/27/23 Renal US 11/12/23 Assessment & Plan Assessment & Plan (1) CKD (chronic kidney disease) stage 3, GFR 30-59 ml/min: Code(s): N18.30 - Chronic kidney disease, stage 3 unspecified Category: Medical (2) Diabetes mellitus with chronic kidney disease: Code(s): E11.22 - Type 2 diabetes mellitus with diabetic chronic kidney disease Category: Medical Plan 77-year-old man with stage III CKD in a setting of longstanding hypertension diabetes mellitus and coronary disease. He has no significant proteinuria. He probably has underlying hypertension nephrosclerosis. No evidence of any obstructive uropathy. Keep Lasix at 20 mg a day. I have encouraged him to stay on low-sodium diet He should watch her leg edema and if he has any shortness of breath or indication to increase the Lasix to 40 mg. For now agree with using SGLT-2 inhibitors for renal protection. Decrease MEtoprolol to 25 mg BID from TID due to low BP Orders: Orders Complete Blood Count Auto Diff Today N18.30 - Chronic kidney disease, stage 3 unspecified Basic Metabolic Panel Today N18.30 - Chronic kidney disease, stage 3 unspecified Total Protein Urine Random Today N18.30 - Chronic kidney disease, stage 3 unspecified Creatinine Urine Today N05.9 - Unspecified nephritic syndrome with unspecified morphologic changes, N18.30 - Chronic kidney disease, stage 3 unspecified Coding Level of Care Code Est Pt Level 4 (75986) Diagnoses CKD (chronic kidney disease) stage 3, GFR 30-59 ml/min N18.30 Diabetes mellitus with chronic kidney disease E11.22
== END 2024-03-25 11:47 | disposition home or self-care (01) ==
PROVIDERS: PCP Internal Medicine; Visit Provider Internal Medicine Hypertension Specialist
DX: E11.22 Type 2 diabetes mellitus with diabetic chronic kidney disease (principal); N18.30 Chronic kidney disease, stage 3 unspecified
CPT/HCPCS: 99214

== ENCOUNTER 2024-03-25 11:23 | Outpatient (REF) | payer OTHER, SELFPAY ==
[2024-03-25 12:15] LABS: MANUAL DIFF FLAG NO
[2024-03-25 12:50] LABS: Basophils Absolute Auto 0.1 X10*3/uL (0.0-0.2); Eosinophils Absolute Auto 0.2 X10*3/uL (0.0-0.4); Eosinophils Percent Auto 2.1 % (0-4); Hematocrit 40.9 % (42.0-52.0); Hemoglobin 13.5 g/dl (14.0-18.0); Imm Gran Abs Auto 0.02 X10*3/uL (0.00-0.03); Imm Gran Pct Auto 0.3 % (0.0-0.4); Lymphocytes Absolute Auto 1.9 X10*3/uL (1.2-4.9); Lymphocytes Percent Auto 26.9 % (20-40); Mean Corpuscular Hemoglobin 27.4 pg (27.0-33.0); Mean Platelet Volume 11.1 fL (9.4-12.4); Monocytes Absolute Auto 0.6 X10*3/uL (0.1-1.2); Monocytes Percent Auto 7.9 % (2-11); Neutrophils Absolute Auto 4.3 x10*3/uL (2.0-8.3); Neutrophils Percent Auto 61.8 % (45-73); Platelet Count 202 X10*3/uL (160-400); Red Blood Count 4.93 X10*6/uL (4.60-5.80); Red Cell Distribution Width 13.6 % (11.0-16.0)
[2024-03-25 13:28] LABS: Anion Gap 15 (12-20); Blood Urea Nitrogen 18 mg/dL (9-16); Calcium 9.8 mg/dL (8.4-10.2); Carbon Dioxide 24 mmol/L (22-29); Chloride 104 mmol/L (96-108); Estimated Glomerular Filt Rate 53; Glucose Random 265 mg/dL (60-115); Potassium 3.7 mmol/L (3.3-5.1); Sodium 139 mmol/L (135-145)
[2024-03-25 14:28] LABS: Total Protein Urine Random < 7 mg/dL (<12)
== END 2024-03-25 11:24 | disposition home or self-care (01) ==
LOC: HO.LAB 11:23
PROVIDERS: PCP Internal Medicine; Visit Provider Internal Medicine Hypertension Specialist
DX: N18.30 Chronic kidney disease, stage 3 unspecified (principal); N05.9 Unspecified nephritic syndrome with unspecified morphologic changes
CPT/HCPCS: 36415; 80048; 82570; 84156; 85025; 99212

== ENCOUNTER 2024-07-08 11:56 | Outpatient (AMB) | payer OTHER, SELFPAY ==
[2024-07-08 11:57] VITALS: BP 120/60; PULSE 83; O2SAT 94; BMI 24.5
--- NOTE | 2024-07-08 11:57 | HO.NEPHOV_ITS ---
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 Required: No Accompanied by: Self / Same As Patient Allergies lisinopril Allergy (Mild, Verified 07/08/24 12:00) Cough Penicillins Allergy (Mild, Verified 07/08/24 12:00) RASH linagliptin [Tradjenta] Adverse Reaction (Mild, Verified 07/08/24 12:00) diarrhea Medication List - Last Reconciled 07/08/24 by Timur Rmoo MD ascorbic acid (vitamin C) (Vitamin C) 500 mg PO BID 90 days aspirin 81 mg PO DAILY blood sugar diagnostic As directed blood sugar diagnostic ([employer] Ultra Test strips) As directed check bs BID blood sugar diagnostic As directed check blood sugar 2 times a day cholecalciferol (vitamin D3) 25 mcg PO DAILY cyclobenzaprine 10 mg PO BEDTIME PRN dulaglutide 3 mg (0.5 mL) subcut FR 30 days empagliflozin 25 mg PO DAILY finasteride (Proscar) 5 mg PO DAILY 90 days furosemide (Lasix) 20 mg (1/2 x 40 mg) PO DAILY 90 days gabapentin 300 mg PO BEDTIME glipizide ER 10 mg PO DAILY isosorbide mononitrate ER 30 mg PO DAILY magnesium oxide 400 mg PO DAILY metoprolol tartrate 25 mg PO BID 90 days omeprazole 20 mg PO QAM potassium chloride ER 20 mEq PO DAILY rosuvastatin 40 mg PO DAILY simethicone (Gas Relief (simethicone)) 125 mg PO BID-QID PRN vitamin B complex (B Complex-Vitamin B12 tablet) 1 tab PO DAILY vitamin E (dl, acetate) 100 units PO DAILY [walking cane As directed] zinc acetate 25 mg PO DAILY HPI Comments Details: 77-year-old male with a history of CAD status post quadruple bypass, diabetes, hypertension, iron deficiency anemia, HLD, GERD, has been referred for CKD. Baseline serum creatinine has been around 1.2-1.4 mg/dL. After lowering Lasix 20mg QD and doing He has no edema. He has occasional lightheadedness. No urine symptoms. 07/08/24 C/o insomnia Drinks coke in evening [facility] Medical History (Updated 02/13/24 @ 13:21 by Aaron Collazo MD) Headache Iron deficiency anemia HTN (hypertension) Weight loss Acute bronchitis Sciatic nerve palsy, left Chest pain Burning chest pain Left shoulder pain Constipation Foul smelling urine BPH (benign prostatic hyperplasia) Fatty liver Renal calculi Adrenal adenoma GERD (gastroesophageal reflux disease) Hypercholesterolemia Coronary artery disease Overweight (BMI 25.0-29.9) Type 2 diabetes mellitus with hyperglycemia Surgical History Hx of hand surgery History of transurethral resection of prostate History of esophagogastroduodenoscopy (EGD) H/O colonoscopy Hx of heart artery stent 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 History of nephrolithiasis History of prostate surgery History of arthroscopy of left shoulder History of tonsillectomy Family History Father Diabetes Hypertension CVD (cardiovascular disease) Mother Diabetes Social History Household Members: Family Housing: House Are you a primary animal care technician to a significant other at home: No Do you presently have visiting nurse or other home services: No Alcohol intake: never Patient Tobacco Use Status: Former Tobacco user Tobacco use type: Cigarette Cigarette Packs Per Day: 1.5 e-Cigarette/Vaping Use: Never Used Second Hand Smoke Exposure: Yes service: No Current occupational status: retired Cognitive needs: Yes (cane) Hearing needs: No Vision needs: Yes (perscription glasses) Physical Exam Vital Signs: Last Vital Signs Pulse 83 07/08/24 11:57 BP 120/60 07/08/24 11:57 Pulse Ox 94 07/08/24 11:57 Oxygen Delivery Method Room Air 07/08/24 11:57 BMI result Body Mass Index 24.5 Const General: comfortable; No acute distress Orientation/consciousness: patient oriented x3 Eyes General: appearance normal, both eyes and all related structures Visual Hendricks: normal visual hendricks by confrontation Neck Neck: Yes supple and Yes no JVD Resp Effort & Inspection: normal respiratory effort and respiratory effort not decreased Auscultation: rhonchi Cardio Palpation: no palpable S3 and no palpable S4 Heart sounds: no rubs GI Inspection: Yes normal to inspection Palpation (GI): Soft to palpation Percussion: Yes normal to percussion Auscultation: normal bowel sounds General: Yes no CVA tenderness Back/Spine/Pelvis Back: no CVA tenderness Skin General skin exam: no petechiae and no purpura Neuro General: patient oriented x3 and no focal motor deficits Extrem General: No clubbing and No edema Results Reviewed Nephrology Results: Hgb 13.5 g/dl (14.0-18.0) L 03/25/24 WBC 7.0 X10*3/uL (4.8-10.8) 03/25/24 Plt Count 202 X10*3/uL (160-400) 03/25/24 Sodium 139 mmol/L (135-145) 03/25/24 Potassium 3.7 mmol/L (3.3-5.1) 03/25/24 Chloride 104 mmol/L (96-108) 03/25/24 Carbon Dioxide 24 mmol/L (22-29) 03/25/24 BUN 18 mg/dL (9-16) H 03/25/24 Creatinine 1.30 mg/dL (0.5-1.4) 03/25/24 Calcium 9.8 mg/dL (8.4-10.2) 03/25/24 Urine Creatinine 23.20 mg/dL 03/25/24 Renal US 11/12/23 Assessment & Plan Assessment & Plan (1) CKD (chronic kidney disease) stage 3, GFR 30-59 ml/min: Code(s): N18.30 - Chronic kidney disease, stage 3 unspecified Category: Medical (2) Diabetes mellitus with chronic kidney disease: Code(s): E11.22 - Type 2 diabetes mellitus with diabetic chronic kidney disease Category: Medical Plan 77-year-old man with stage III CKD in a setting of longstanding hypertension alfonso betes mellitus and coronary disease. He has no significant proteinuria. He probably has underlying hypertension nephrosclerosis. No evidence of any obstructive uropathy. Keep Lasix at 20 mg a day. I have encouraged him to stay on low-sodium diet He should watch her leg edema and if he has any shortness of breath or indication to increase the Lasix to 40 mg. For now agree with using SGLT-2 inhibitors for renal protection. Decreased Metoprolol to 25 mg BID from TID due to low BP and currently BP is acceptable Encouraged to stop coke or pepsi in the evening and insomnia should improve. Orders: Orders Basic Metabolic Panel Today N18.30 - Chronic kidney disease, stage 3 unspecified Coding Level of Care Code Est Pt Level 4 (24580) Diagnoses CKD (chronic kidney disease) stage 3, GFR 30-59 ml/min N18.30 Diabetes mellitus with chronic kidney disease E11.22
== END 2024-07-08 12:10 | disposition home or self-care (01) ==
PROVIDERS: PCP Internal Medicine; Visit Provider Internal Medicine Hypertension Specialist
DX: E11.22 Type 2 diabetes mellitus with diabetic chronic kidney disease (principal); N18.30 Chronic kidney disease, stage 3 unspecified
CPT/HCPCS: 99214

== ENCOUNTER 2024-07-08 11:56 | Outpatient (REF) | payer OTHER, SELFPAY ==
[2024-07-08 13:07] LABS: Blood Urea Nitrogen 17 mg/dL (9-16)
[2024-07-08 13:09] LABS: Anion Gap 12 (12-20); Blood Urea Nitrogen 16 mg/dL (9-16); Calcium 9.6 mg/dL (8.4-10.2); Carbon Dioxide 25 mmol/L (22-29); Chloride 105 mmol/L (96-108); Estimated Glomerular Filt Rate 49; Glucose Random 232 mg/dL (60-115); Sodium 138 mmol/L (135-145)
== END 2024-07-08 11:57 | disposition home or self-care (01) ==
LOC: HO.LAB 11:56
PROVIDERS: PCP Internal Medicine; Visit Provider Internal Medicine Hypertension Specialist
DX: E11.22 Type 2 diabetes mellitus with diabetic chronic kidney disease (principal); I12.9 Hypertensive chronic kidney disease with stage 1 through stage 4 chronic kidney disease, or unspecified chronic kidney disease; N18.30 Chronic kidney disease, stage 3 unspecified; I25.10 Atherosclerotic heart disease of native coronary artery without angina pectoris; Z95.1 Presence of aortocoronary bypass graft
CPT/HCPCS: 36415; 80048; 82310; 84520; 99212

== ENCOUNTER 2024-07-16 13:42 | Outpatient (AMB) | payer OTHER, SELFPAY ==
--- NOTE | 2024-07-16 13:46 | MHC.OFFVIS ---
Vital Signs 07/16/24 13:47 Height 5 ft 8 in Weight 161 lb 6.054 oz BMI 24.5 BP 100/62 Blood Pressure Location Lt brachial Position Sitting Pulse 77 Pulse Source Monitor Intake Visit Reasons: 6 month f/u rs from 07/05/24 Field Research Assistant Required: No Allergies lisinopril Allergy (Mild, Verified 07/16/24 13:48) Cough Penicillins Allergy (Mild, Verified 07/16/24 13:48) RASH linagliptin [Tradjenta] Adverse Reaction (Mild, Verified 07/16/24 13:48) diarrhea Medication List - Last Reconciled 07/16/24 by GENIA House ascorbic acid (vitamin C) (Vitamin C) 500 mg PO BID 90 days aspirin 81 mg PO DAILY blood pressure test kit-medium As directed blood sugar diagnostic As directed blood sugar diagnostic ([employer] Ultra Test strips) As directed check bs BID blood sugar diagnostic As directed check blood sugar 2 times a day cholecalciferol (vitamin D3) 25 mcg PO DAILY cyclobenzaprine 10 mg PO BEDTIME PRN dulaglutide 3 mg (0.5 mL) subcut FR 30 days empagliflozin 25 mg PO DAILY finasteride (Proscar) 5 mg PO DAILY 90 days furosemide (Lasix) 20 mg (1/2 x 40 mg) PO DAILY 90 days glipizide ER 10 mg PO DAILY isosorbide mononitrate ER 30 mg PO DAILY magnesium oxide 400 mg PO DAILY metoprolol tartrate 25 mg PO BID 90 days omeprazole 20 mg PO QAM potassium chloride ER 20 mEq PO DAILY rosuvastatin 40 mg PO DAILY simethicone (Gas Relief (simethicone)) 125 mg PO BID-QID PRN vitamin B complex (B Complex-Vitamin B12 tablet) 1 tab PO DAILY vitamin E (dl, acetate) 100 units PO DAILY [walking cane As directed] zinc acetate 25 mg PO DAILY HPI HPI 6 month f/u rs from 07/05/24: Details: Calderon is a 78-year-old male with past medical history of hyperlipidemia, diabetes, peripheral vascular disease, coronary artery disease with coronary stents followed by coronary artery bypass grafting 4.5 years ago who presents for follow-up. Today he reports that he has been doing well since his his last visit in December. He has not been having any chest discomfort at rest or with activity. He will get some reflux if he eats spicy peppers. He denies shortness of breath, palpitations, dizziness, presyncope, syncope, PND, orthopnea or edema. He reports good activity tolerance. He is currently taking down his daughters swimming pool which requires a lot of physical activity. Compliant with all medications. FORMERLY [facility] Medical History Headache Iron deficiency anemia HTN (hypertension) Weight loss Acute bronchitis Sciatic nerve palsy, left Chest pain Burning chest pain Left shoulder pain Constipation Foul smelling urine BPH (benign prostatic hyperplasia) Fatty liver Renal calculi Adrenal adenoma GERD (gastroesophageal reflux disease) Hypercholesterolemia Coronary artery disease Overweight (BMI 25.0-29.9) Type 2 diabetes mellitus with hyperglycemia Surgical History Hx of hand surgery History of transurethral resection of prostate History of esophagogastroduodenoscopy (EGD) H/O colonoscopy Hx of heart artery stent 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 History of nephrolithiasis History of prostate surgery History of arthroscopy of left shoulder History of tonsillectomy Family History Father Diabetes Hypertension CVD (cardiovascular disease) Mother Diabetes Social History Household Members: Family Housing: House Are you a primary child care provider to a significant other at home: No Do you presently have visiting nurse or other home services: No Alcohol intake: never Patient Tobacco Use Status: Former Tobacco user Tobacco use type: Cigarette Cigarette Packs Per Day: 1.5 e-Cigarette/Vaping Use: Never Used Second Hand Smoke Exposure: Yes service: No Current occupational status: retired Cognitive needs: Yes (cane) Hearing needs: No Vision needs: Yes (perscription glasses) Review of Systems Const All systems reviewed & are unremarkable except as noted in HPI and below ENT Denies dizziness Card Denies chest pain, Denies chest pain at rest, Denies chest pain with activity, Denies rapid heart rate, Denies pedal edema, Denies edema, Denies leg edema, Denies lightheadedness, Denies palpitations, Denies dyspnea, Denies dyspnea on exertion and Denies orthopnea Resp Denies cough, Denies dyspnea and Denies dyspnea on exertion GI Denies hematochezia and Denies change in stool character Musc Denies abnormal gait, Denies limited range of motion, Denies muscle cramps, Denies muscle weakness, Denies numbness, Denies radiating pain into limb, Denies stiffness and Denies tingling Neuro Denies abnormal gait, Denies dizziness, Denies numbness and Denies tingling Endo Denies palpitations Physical Exam Vital Signs: BMI result Body Mass Index 24.5 Const General: cooperative, healthy appearing, comfortable and no acute distress Orientation/consciousness: patient oriented x3 Neck Neck: Yes normal visual inspection Resp Effort & Inspection: normal respiratory effort Auscultation: clear to auscultation bilaterally, no crackles, no rales, no rhonchi and no wheezes Cardio Jugular venous distension: no JVD Rate: regular rate Rhythm: regular rhythm Heart sounds: S1 normal heart sound present, S2 normal heart sound present, no gallops, no murmurs and no rubs Neuro General: patient oriented x3 Extrem General: Yes normal to inspection, No no pedal edema and No calf tenderness Psych Appearance: grossly normal Mental Status: mental status grossly normal Speech and movement: Normal speech and movement present Office Procedures EKG Details: Today, read by me, normal sinus rhythm, left axis deviation, incomplete right bundle branch block, rate 77, QTC 457 milliseconds [id number], Complete Assessment & Plan Assessment & Plan (1) Coronary artery disease: Comment: CABG August [address] Rhodes Code(s): I25.10 - Atherosclerotic heart disease of [place] coronary artery without angina pectoris Category: Medical Qualifiers: Coronary Disease-Associated Artery/Lesion type: [place] artery [place] vs. transplanted heart: [place] heart Associated angina: without angina Qualified Code(s): I25.10 - Atherosclerotic heart disease of [place] coronary artery without angina pectoris Plan: History of CAD with 4 vessel Coronary artery bypass grafting 2019. He had been following with Dr. Cabrera prior to his [facility] then [facility] and changed to our office 1 year ago. He has been doing well with no anginal sounding symptoms. Testing was done last year for atypical sounding discomfort. Nuclear stress test done 06/03/2023 showed normal myocardial perfusion imaging. An echocardiogram done 06/12/2023 showed EF 55-60%, with regional wall motion abnormality consistent with CAD, basal inferior and basal inferior septum hypokinesis. EKG done today shows normal sinus rhythm with no acute ST or T-wave abnormalities. Today he reports he has been feeling well and has good activity tolerance. Will have him continue aspirin indefinitely. Continue rosuvastatin 40 mg daily. Labs done 10/13/2023 showed LDL 49. Continue metoprolol, isosorbide. Signs and symptoms of angina reviewed. Cardiology follow-up 6 months, sooner if needed. (2) Type 2 diabetes mellitus with hyperglycemia: Comment: [facility] Eye exam Code(s): E11.65 - Type 2 diabetes mellitus with hyperglycemia Category: Medical Qualifiers: Diabetes mellitus usp insulin use: without usp use Qualified Code(s): E11.65 - Type 2 diabetes mellitus with hyperglycemia Plan: Hemoglobin A1c goal less than 7. Followed by his PCP. (3) Hypercholesterolemia: Code(s): E78.00 - Pure hypercholesterolemia, unspecified Category: Medical Plan: [place] LDL goal less than 70. Labs done 10/13/2023 showed LDL 49. He is due for updated lab work, followed by PCP. Continue rosuvastatin 40 mg daily.. Plan Time spent on chart review, documentation, interview and assessment Medications: New blood pressure test kit-medium As directed 1 ea 0RF I10 - Essential (primary) hypertension, I25.10 - Atherosclerotic heart disease of [place] coronary artery without angina pectoris Coding Level of Care Code Est Pt Level 4 (91530) Diagnoses Coronary artery disease involving [place] coronary artery of [place] heart without angina pectoris I25.10 Coronary Disease-Associated Artery/Lesion type: [place] artery [place] vs. transplanted heart: [place] heart Associated angina: without angina Type 2 diabetes mellitus with hyperglycemia, without long-term current use of insulin E11.65 Diabetes mellitus terminal computer operator insulin use: without usp use Hypercholesterolemia E78.00 CPT Codes EKG - CPT: 21731-[id number], Complete ([id number]) Time Spent (min) 28
[2024-07-16 13:47] VITALS: BP 100/62; PULSE 77; BMI 24.5
== END 2024-07-16 14:12 | disposition home or self-care (01) ==
PROVIDERS: PCP Internal Medicine; Visit Provider Nurse Practitioner Family
DX: I25.10 Atherosclerotic heart disease of native coronary artery without angina pectoris (principal); E11.65 Type 2 diabetes mellitus with hyperglycemia; E78.00 Pure hypercholesterolemia, unspecified
CPT/HCPCS: 93010; 99214

== ENCOUNTER → 2024-07-16 13:42 | Outpatient (BNVA) | payer OTHER, SELFPAY | PROVIDERS: PCP Internal Medicine; Visit Provider Nurse Practitioner Family | DX: I25.10 Atherosclerotic heart disease of native coronary artery without angina pectoris (principal); I10 Essential (primary) hypertension; I73.9 Peripheral vascular disease, unspecified; E11.65 Type 2 diabetes mellitus with hyperglycemia; E78.00 Pure hypercholesterolemia, unspecified; Z95.1 Presence of aortocoronary bypass graft | CPT/HCPCS: 93005; 99212 ==

== ENCOUNTER 2024-07-29 10:49 | Outpatient (AMB) | payer OTHER, SELFPAY ==
[2024-07-29 11:16] VITALS: BP 104/62; PULSE 69; O2SAT 94; BMI 24.5
--- NOTE | 2024-07-29 11:16 | A.OFFPC_ITS ---
Vital Signs 07/29/24 11:16 Height 5 ft 8 in Weight 161 lb BMI 24.5 BP 104/62 Blood Pressure Location Lt brachial Position Sitting Pulse 69 Pulse Source Pulse Oximeter Pulse Oximetry (%) 94 Oxygen Delivery Method Room Air Intake Visit Reasons: DM Allergies lisinopril Allergy (Mild, Verified 07/29/24 11:16) Cough Penicillins Allergy (Mild, Verified 07/29/24 11:16) RASH linagliptin [Tradjenta] Adverse Reaction (Mild, Verified 07/29/24 11:16) diarrhea Tobacco use date assessed: 03/12/24 Fall risk assessment: No Falls in past year Last assessed Fall Risk: 07/29/24 Dental Screening Dental Screen Date: 12/05/23 HPI DM HPI Details 78-year-old male with uncontrolled diabe kaushal mellitus hypercholesterolemia GERD BPH coronary artery disease 2019 chronic kidney disease hypertension last seen in 03/06/2024. Patient's colonoscopy is up-to-date 08/06/2022. Review of the notes has seen Cardiology in June nuclear stress test 06/05/2023 normal. On aspirin continuing with rosuvastatin. Patient had recent ultrasound of the kidneys February showing a 3 mm left kidney stone nonobstructing patient has seen Nephrology also chronic kidney disease stage 3 ascending diabetes and hypertension and coronary artery disease continuing with Lasix 20 mg once a day low-sodium diet decrease metoprolol to 25 mg twice a day. Patient also follows up with urology for BPH erectile dysfunction and nephrolithiasis. On finasteride continuing to monitor. Would not recommend the PDE5 inhibitors due to chest pains. 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 2. No intracranial hemorrhage or skull fracture is seen. 3. No evidence of space occupying lesion could be found. 4. The current plain CT scan of the [facility] shows no diagnostic evidence of acute cerebral infarction. [facility] Medical History Headache Iron deficiency anemia HTN (hypertension) Weight loss Acute bronchitis Sciatic nerve palsy, left Chest pain Burning chest pain Left shoulder pain Constipation Foul smelling urine BPH (benign prostatic hyperplasia) Fatty liver Renal calculi Adrenal adenoma GERD (gastroesophageal reflux disease) Hypercholesterolemia Coronary artery disease Overweight (BMI 25.0-29.9) Type 2 diabetes mellitus with hyperglycemia Surgical History Hx of hand surgery History of transurethral resection of prostate History of esophagogastroduodenoscopy (EGD) H/O colonoscopy Hx of heart artery stent 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 History of nephrolithiasis History of prostate surgery History of arthroscopy of left shoulder History of tonsillectomy Family History Father Diabetes Hypertension CVD (cardiovascular disease) Mother Diabetes Social History Household Members: Family Housing: House Are you a primary care director rn to a significant other at home: No Do you presently have visiting nurse or other home services: No Alcohol intake: never Patient Tobacco Use Status: Former Tobacco user Tobacco use type: Cigarette Cigarette Packs Per Day: 1.5 e-Cigarette/Vaping Use: Never Used Second Hand Smoke Exposure: Yes service: No Current occupational status: retired Cognitive needs: Yes (cane) Hearing needs: No Vision needs: Yes (perscription glasses) Questionnaire PHQ-9 Over the last 2 weeks, how often have you been bothered by any of the following problems? 1. Little interest or pleasure in doing things: not at all 2. Feeling down, depressed, or hopeless: not at all 3. Trouble falling or staying asleep, or sleeping too much: not at all 4. Feeling tired or having little energy: not at all 5. Poor appetite or overeating: not at all 6. Feeling bad about yourself - or that you are a failure or have let yourself or your family down: not at all 7. Trouble concentrating on things, such as reading the newspaper or watching television: not at all 8. Moving or speaking so slowly that other people could have noticed. Or the opposite - being so fidgety or restless that you have been moving around a lot more than usual: not at all 9. Thoughts that you would be better off or of hurting yourself in some way: not at all Total score: 0 Depression Screening Interpretation: Negative Depression Screening Done: Yes 02511 - PHQ-9 Billing: Yes Source: Developed by Drs. Elbert Boogie, Esther Hilliard, Anurag Gupta and colleagues, with an educational elfego from [employer]. Thrive Questionnaire Date Thrive assessed: 12/05/23 AUDIT C Alcohol Use Questionnaire (AUDIT-C) 1. How often do you have a drink containing alcohol?: Never 3. How often do you have six or more drinks on one occasion?: Never Total Score: 0 TRINH-7 AMB Questionnaire TRINH-7 Date TRINH - 7 assessed: 12/05/23 Source: Developed by Drs. Elbert Boogie, Anurag Pickett and colleagues, with an educational elfego from [employer]. Physical exam (Primary Care) Vital Signs: Last Vital Signs Pulse 69 07/29/24 11:16 BP 104/62 07/29/24 11:16 Pulse Ox 94 07/29/24 11:16 Oxygen Delivery Method Room Air 07/29/24 11:16 BMI result Body Mass Index 24.5 Tobacco/Smoking Status: Tobacco use Status Tobacco use date assessed 03/12/24 07/29/24 11:17 Patient Tobacco Use Status Former Tobacco user 07/29/24 11:17 Tobacco use type Cigarette 07/29/24 11:17 e-Cigarette/Vaping Use Never Used 07/29/24 11:17 PHQ-9: PHQ-9 Score PHQ-9: Total score 0 07/29/24 11:40 Depression Screening Interpretation: Negative Thrive Assessment: Date of Thrive Assessment Date Thrive assessed 12/05/23 07/29/24 11:17 Const General: alert; No acute distress Eyes Conjunctivae: conjunctivae normal Resp Auscultation: clear to auscultation bilaterally Cardio Rate: regular rate Rhythm: regular rhythm GI Inspection: Yes normal to inspection Extrem General: Yes normal to inspection and No edema Results AMB Hemoglobin A1c AMB Hemoglobin A1c 8.9 % Last Edit by Allegra Colon CMA on 07/29/24 11 :41 Assessment and Plan Assessment & Plan (1) Type 2 diabetes mellitus with hyperglycemia: Comment: [facility] Eye exam Code(s): E11.65 - Type 2 diabetes mellitus with hyperglycemia Qualifiers: Diabetes mellitus senior living insulin use: without senior living use Qualified Code(s): E11.65 - Type 2 diabetes mellitus with hyperglycemia Plan: Decrease the amount of carbohydrate intake, pasta, bread, rice and potatoes are all sugar and that is aside from all the sweet stuff, remember that fruits are good but they are Sweet also. Hemoglobin A1c goal of less than 7.0 on Trulicity Jardiance glipizide. trulicity is taking 1.5 since no availability (2) Hypercholesterolemia: Code(s): E78.00 - Pure hypercholesterolemia, unspecified Plan: Avoid fried foods, chicken skin, eggs, butter margarine, pastries and meat. Be it pork or beef they have a lot of cholesterol LDL goal of less than 70 and triglyceride of less than 150 patient's last blood work 10/06/2023 on rosuvastatin (3) GERD (gastroesophageal reflux disease): Code(s): K21.9 - Gastro-esophageal reflux disease without esophagitis Qualifiers: Esophagitis presence: without esophagitis Qualified Code(s): K21.9 - Gastro-esophageal reflux disease without esophagitis Plan: Avoid the foods that causes that usually spicy foods, tomato products, juices, coffee, soda and foods that your sensitive to. After eating do not lie down, allow 3-4 hours before in lie down. And keep the head of bed above 30 degrees to avoid the acid from going up. (4) Generalized anxiety disorder: Code(s): F41.1 - Generalized anxiety disorder Plan: Continue with present medication (5) BPH (benign prostatic hyperplasia): Code(s): N40.0 - Benign prostatic hyperplasia without lower urinary tract symptoms Plan: Patient follows up with urology continuing to monitor BPH (6) Coronary artery disease: Comment: CABG August [address] Rhodes Code(s): I25.10 - Atherosclerotic heart disease of [place] coronary artery without angina pectoris Qualifiers: Coronary Disease-Associated Artery/Lesion type: [place] artery [place] vs. transplanted heart: [place] heart Associated angina: without angina Q ualified Code(s): I25.10 - Atherosclerotic heart disease of [place] coronary artery without angina pectoris Plan: Control the cholesterol, weight, blood pressure, diabetes on aspirin 81 mg once a day (7) CKD (chronic kidney disease) stage 3, GFR 30-59 ml/min: Code(s): N18.30 - Chronic kidney disease, stage 3 unspecified Plan: Patient follows up with Nephrology control diabetes blood pressure avoid NSAIDs keep well hydrated (8) HTN (hypertension): Code(s): I10 - Essential (primary) hypertension Plan: Continue with blood pressure medication. Decrease salt intake and exercise takes metoprolol 25 mg twice a day Orders: Orders Complete Blood Count Auto Diff Today E11.65 - Type 2 diabetes mellitus with hyperglycemia Comprehensive Met. Panel Today E11.65 - Type 2 diabetes mellitus with hyperglycemia Lipid Panel Today E11.65 - Type 2 diabetes mellitus with hyperglycemia, E78.00 - Pure hypercholesterolemia, unspecified Microalbumin, Random (w Creat) Today E11.65 - Type 2 diabetes mellitus with hyperglycemia Vitamin B12 and Folate Today E11.65 - Type 2 diabetes mellitus with hyperglycemia IRON PROFILE Today E11.65 - Type 2 diabetes mellitus with hyperglycemia AMB Hemoglobin A1c Today Z13.9 - Encounter for screening, unspecified Free T4 (Free Thyroxine) Today E11.65 - Type 2 diabetes mellitus with hyperglycemia Creatinine Urine Today E11.65 - Type 2 diabetes mellitus with hyperglycemia Thyroid Stimulating Hormone Today E11.65 - Type 2 diabetes mellitus with hyperglycemia Uric Acid Today E11.65 - Type 2 diabetes mellitus with hyperglycemia ABO RH Type Today E11.65 - Type 2 diabetes mellitus with hyperglycemia Ferritin Today E11.65 - Type 2 diabetes mellitus with hyperglycemia Reticulocyte Count Today E11.65 - Type 2 diabetes mellitus with hyperglycemia Medications: Changed From furosemide (Lasix) 20 mg (1/2 x 40 mg) PO DAILY 90 days 45 tabs 2RF To furosemide 20 mg PO DAILY 90 days 90 tabs 2RF From dulaglutide 3 mg (0.5 mL) subcut FR 30 days 2.5 mL 12RF E11.65 - Type 2 diabetes mellitus with hyperglycemia To dulaglutide 1.5 mg (0.5 mL) subcut FR 30 days 2.5 mL 12RF E11.65 - Type 2 diabetes mellitus with hyperglycemia Coding Level of Care Code Est Pt Level 4 (64892) Complex EM visit Add On G2211 Diagnoses Type 2 diabetes mellitus with hyperglycemia, without long-term current use of insulin E11.65 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 transplanted heart: [place] heart Associated angina: without angina CKD (chronic kidney disease) stage 3, GFR 30-59 ml/min N18.30 HTN (hypertension) I10
== END 2024-07-29 11:57 | disposition home or self-care (01) ==
PROVIDERS: PCP Internal Medicine; Visit Provider Internal Medicine
DX: E11.65 Type 2 diabetes mellitus with hyperglycemia (principal); I12.9 Hypertensive chronic kidney disease with stage 1 through stage 4 chronic kidney disease, or unspecified chronic kidney disease; N18.30 Chronic kidney disease, stage 3 unspecified; E78.00 Pure hypercholesterolemia, unspecified; K21.9 Gastro-esophageal reflux disease without esophagitis; F41.1 Generalized anxiety disorder; N40.0 Benign prostatic hyperplasia without lower urinary tract symptoms; I25.10 Atherosclerotic heart disease of native coronary artery without angina pectoris
CPT/HCPCS: 83036; 99214; G2211

== ENCOUNTER 2024-09-27 10:57 | Outpatient (AMB) | payer OTHER, SELFPAY ==
[2024-09-27 10:59] VITALS: BP 120/68; PULSE 78; O2SAT 94; BMI 24.4
--- NOTE | 2024-09-27 10:59 | A.OFFPC_ITS ---
Vital Signs 09/27/24 10:59 Height 5 ft 8 in Weight 160 lb 8 oz BMI 24.4 BP 120/68 Blood Pressure Location Lt brachial Position Sitting Pulse 78 Pulse Source Pulse Oximeter Pulse Oximetry (%) 94 Oxygen Delivery Method Room Air Intake Visit Reasons: cyst on butt cheeks ? Allergies lisinopril Allergy (Mild, Verified 09/27/24 10:59) Cough Penicillins Allergy (Mild, Verified 09/27/24 10:59) RASH linagliptin [Tradjenta] Adverse Reaction (Mild, Verified 09/27/24 10:59) diarrhea Tobacco use date assessed: 09/27/24 Fall risk assessment: No Falls in past year Last assessed Fall Risk: 09/27/24 Dental Screening Dental Screen Date: 09/27/24 Did you have a dental visit in the last 12 months?: Yes Did you have a dental problem in the last 6 months where you did not have access to dental care?: No Was dental information given to patient?: Patient has dentist HPI cyst on butt cheeks ? HPI Details 78-year-old male with uncontrolled diabe kaushal mellitus hypercholesterolemia GERD generalized anxiety disorder with BPH, coronary artery disease hypertension chronic kidney disease/seen in 07/29/2024. Patient is here for acute problem.mass on the bilateral noted placed vicks months. complains of pain. . R shoulder pain takes tylenol, pain 1 year, deny fall or trauma. complains of numbness of the feet, cannot take gabapentin. and cannot give amitriptelline Cardiac state. [facility] Medical History Headache Iron deficiency anemia HTN (hypertension) Weight loss Acute bronchitis Sciatic nerve palsy, left Chest pain Burning chest pain Left shoulder pain Constipation Foul smelling urine BPH (benign prostatic hyperplasia) Fatty liver Renal calculi Adrenal adenoma GERD (gastroesophageal reflux disease) Hypercholesterolemia Coronary artery disease Overweight (BMI 25.0-29.9) Type 2 diabetes mellitus with hyperglycemia Surgical History Hx of hand surgery History of transurethral resection of prostate History of esophagogastroduodenoscopy (EGD) H/O colonoscopy Hx of heart artery stent 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 History of nephrolithiasis History of prostate surgery History of arthroscopy of left shoulder History of tonsillectomy Family History Father Diabetes Hypertension CVD (cardiovascular disease) Mother Diabetes Social History Household Members: Family Housing: House Are you a primary wound care nurse to a significant other at home: No Do you presently have visiting nurse or other home services: No Alcohol intake: never Patient Tobacco Use Status: Former Tobacco user Tobacco use type: Cigarette Cigarette Packs Per Day: 1.5 e-Cigarette/Vaping Use: Never Used Second Hand Smoke Exposure: Yes service: No Current occupational status: retired Cognitive needs: Yes (cane) Hearing needs: No Vision needs: Yes (perscription glasses) Questionnaire PHQ-9 Over the last 2 weeks, how often have you been bothered by any of the following problems? 1. Little interest or pleasure in doing things: not at all 2. Feeling down, depressed, or hopeless: not at all 3. Trouble falling or staying asleep, or sleeping too much: not at all 4. Feeling tired or having little energy: not at all 5. Poor appetite or overeating: not at all 6. Feeling bad about yourself - or that you are a failure or have let yourself or your family down: not at all 7. Trouble concentrating on things, such as reading the newspaper or watching television: not at all 8. Moving or speaking so slowly that other people could have noticed. Or the opposite - being so fidgety or restless that you have been moving around a lot more than usual: not at all 9. Thoughts that you would be better off or of hurting yourself in some way: not at all Total score: 0 Depression Screening Interpretation: Negative Depression Screening Done: Yes 02428 - PHQ-9 Billing: Yes Source: Developed by Drs. Elbert Boogie, Esther Hilliard, Anurag Gupta and colleagues, with an educational elfego from [employer]. Thrive Questionnaire Date Thrive assessed: 09/27/24 I am a: Patient What is your living situation today?: I have a steady place to live Within the past 12 months, did the food you bought not last and you didn't have the money to get more?: Never true Within the past 12 months, did you worry whether your food would run out before you got money to buy more?: Never true Do you have trouble paying for medicines?: No Do you have trouble getting transportation to medical appointments?: No Do you have trouble paying your heating and electricity bill?: No Do you have trouble taking care of your child, family member or friend?: No Do you have trouble with day-to-day activities such as bathing, preparing meals, shopping, managing finances, etc.?: No Are you currently unemployed and looking for a job?: No Are you interested in more education?: No Please select the resources that you would like help with: None THRIVE Score: 0 AUDIT C Alcohol Use Questionnaire (AUDIT-C) 1. How often do you have a drink containing alcohol?: Never 3. How often do you have six or more drinks on one occasion?: Never Total Score: 0 TRINH-7 AMB Questionnaire TRINH-7 Date TRINH - 7 assessed: 09/27/24 Feeling nervous, anxious, or on edge: 0 = Not at all Not being able to stop or control worryin = Not at all Worrying too much about different things: 0 = Not at all Trouble relaxin = Not at all Being so restless that it is hard to sit still: 0 = Not at all Becoming easily annoyed or irritable: 0 = Not at all Feeling afraid as if something awful might happen: 0 = Not at all Total TRINH-7 score (0-4 normal; 5-9 mild; 10-14 moderate; 15-21 severe): 0 Source: Developed by Drs. Elbert Boogie, Esther Hilliard, Anurag Gupta and colleagues, with an educational elfego from [employer]. TRINH-7 Assessment Billing TRINH-7 Assessment Tool: TRINH-7 Assessment 53765 Physical exam (Primary Care) Vital Signs: Last Vital Signs Pulse 78 09/27/24 10:59 BP 120/68 09/27/24 10:59 Pulse Ox 94 09/27/24 10:59 Oxygen Delivery Method Room Air 09/27/24 10:59 BMI result Body Mass Index 24.4 Tobacco/Smoking Status: Tobacco use Status Tobacco use date assessed 09/27/24 09/27/24 11:00 Patient Tobacco Use Status Former Tobacco user 11/11/24 11:00 Tobacco use type Cigarette 09/27/24 11:00 e-Cigarette/Vaping Use Never Used 09/27/24 11:00 PHQ-9: PHQ-9 Score PHQ-9: Total score 0 09/27/24 11:50 Depression Screening Interpretation: Negative Thrive Assessment: Date of Thrive Assessment Date Thrive assessed 09/27/24 09/27/24 11:00 Const General: alert; No acute distress Eyes Conjunctivae: conjunctivae normal Resp Auscultation: clear to auscultation bilaterally Cardio Rate: regular rate Rhythm: regular rhythm GI Inspection: Yes normal to inspection Extrem Other: Lower extremity pulses are weak but equal and present. Right shoulder limited elevation with tenderness on the posterior area. General: No edema Office Procedures Flu Questionnaire Does the patient have a severe egg allergy?: No Does the patient have severe life threatening allergies?: No Does the patient have a fever or illness today?: No Has the patient ever had Guillain-[place] Syndrome?: No Has the patient ever had any past reaction to a flu shot?: No Immunizations Fluarix Triv [id number] (PF) 45 mcg (15 mcg x 3)/0.5 mL IM syringe Performing Provider: Aaron Collazo MD [facility] [place] [facility] Administered by: Rissa Child CMA on 09/27/24 11:56 Dose Route Admin Location Dispensed Lot Number Expiration Date NDC Post Framer 0.5 mL IM Right Tricep 0.5 mL [id number] 05/16/25 [id number] [employer] VIS Given Date VIS Provided VIS Publication Date 09/27/24 Single Vaccine 21 Eligibility Eligibility Date Funding Source Not [facility] Eligible 09/27/24 Private Coding Level of Care Code Est Pt Level 4 (85387) Diagnoses Sebaceous cyst L72.3 Bilateral shoulder pain M25.511; M25.512 Other polyneuropathy G62.89 Peripheral neuropathy type: polyneuropathy, other Additional Codes TRINH-7 Assessment Billing - TRINH-7 Assessment Tool: TRINH-7 Assessment 49000 ([id number]) PHQ-9 - 52007 - PHQ-9 Billing: Yes ([id number]) Assessment & Plan Assessment & Plan (1) Sebaceous cyst: Comment: Right Code(s): L72.3 - Sebaceous cyst Category: Medical Plan: presently shrunk down to 1 cm . will refer to the surgeon (2) Bilateral shoulder pain: Code(s): M25.511 - Pain in right shoulder; M25.512 - Pain in left shoulder Category: Medical Plan: xray requested, xray done R 2022 showing OA, will retest (3) Peripheral neuropathy: Code(s): G62.9 - Polyneuropathy, unspecified Category: Medical Qualifiers: Peripheral neuropathy type: polyneuropathy, other Qualified Code(s): G62.89 - Other specified polyneuropathies Plan: discussed the need for DM controlled , will give duloxetine Orders: Orders XR shoulder LT min 2V Today M25.511 - Pain in right shoulder, M25.512 - Pain in left shoulder XR shoulder RT min 2V Today M25.511 - Pain in right shoulder, M25.512 - Pain in left shoulder Influenza [id number] Immunization Today Z23 - Encounter for immunization Referrals General Surgery Referral L72.3 - Sebaceous cyst Medications: New Fluarix Triv [id number] (PF) (flu vacc [id number] 6mos up(PF)) 0.5 mL IM ONCE 0.5 mL 0RF NS Z23 - Encounter for immunization
== END 2024-09-27 11:51 | disposition home or self-care (01) ==
PROVIDERS: PCP Internal Medicine; Visit Provider Internal Medicine
DX: L72.3 Sebaceous cyst (principal); M25.511 Pain in right shoulder; M25.512 Pain in left shoulder; G62.89 Other specified polyneuropathies; Z23 Encounter for immunization

== ENCOUNTER → 2024-09-27 10:57 | Outpatient (BNVA) | payer OTHER, SELFPAY | PROVIDERS: PCP Internal Medicine; Visit Provider Internal Medicine | DX: Z23 Encounter for immunization (principal); L72.3 Sebaceous cyst; M25.511 Pain in right shoulder; M25.512 Pain in left shoulder; G62.89 Other specified polyneuropathies | CPT/HCPCS: 90471; 90656; 96127; 99212 ==

== ENCOUNTER 2024-09-29 11:00 | Outpatient (REF) | payer OTHER, SELFPAY ==
--- NOTE | ~2024-09-29 | XR_ITS ---
EXAMINATION: XR SHOULDER RIGHT CLINICAL INFORMATION: Pain in right shoulder M25.511. COMPARISON: XR Right shoulder 11/21/2022 TECHNIQUE: AP external rotation, Grashey, scapular Y, and axillary views of the right shoulder. 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 Glenohumeral joint normal. Incidental note made of sternotomy wires. Surrounding bone and soft tissues unremarkable. XR/XR shoulder RT min 2V IMPRESSION: Moderate osteoarthritis of the acromioclavicular joint. Electronically signed by: Robert Mane MD 11/07/2024 09:23 AM [facility]
[2024-09-29 11:55] LABS: MANUAL DIFF FLAG NO
[2024-09-29 12:56] LABS: Basophils Absolute Auto 0.1 X10*3/uL (0.0-0.2); Basophils Percent Auto 0.9 % (0-2); Eosinophils Absolute Auto 0.2 X10*3/uL (0.0-0.4); Eosinophils Percent Auto 3.6 % (0-4); Hematocrit 43.8 % (42.0-52.0); Hemoglobin 14.5 g/dl (14.0-18.0); Imm Gran Abs Auto 0.01 X10*3/uL (0.00-0.03); Imm Gran Pct Auto 0.2 % (0.0-0.4); Immature Retic Fraction 8.8 % (2.3-13.4); Lymphocytes Absolute Auto 1.4 X10*3/uL (1.2-4.9); Lymphocytes Percent Auto 26.1 % (20-40); Mean Corpuscular HGB Conc 33.1 g/dl (31.0-36.0); Mean Corpuscular Hemoglobin 28.3 pg (27.0-33.0); Mean Corpuscular Volume 85.4 fL (80.0-98.0); Mean Platelet Volume 11.4 fL (9.4-12.4); Monocytes Absolute Auto 0.5 X10*3/uL (0.1-1.2); Monocytes Percent Auto 8.2 % (2-11); Neutrophils Absolute Auto 3.4 x10*3/uL (2.0-8.3); Platelet Count 181 X10*3/uL (160-400); Red Blood Count 5.13 X10*6/uL (4.60-5.80); Red Cell Distribution Width 13.4 % (11.0-16.0); Retic HGB Equivalent 31.1 pg (30.0-35.0); Reticulocyte Percent 0.8 % (0.5-1.8); Reticulocytes Absolute 0.042 X10*6/uL (0.026-0.095); White Blood Count 5.5 X10*3/uL (4.8-10.8)
[2024-09-29 13:35] LABS: Uric Acid 4.5 mg/dL (3.4-7.0)
[2024-09-29 13:38] LABS: Alanine Aminotransferase 18 U/L (0-40); Albumin Level 4.4 g/dL (3.5-5.0); Alkaline Phosphatase 54 U/L (39-117); Anion Gap 13 (12-20); Aspartate Amino Transferase 27 U/L (5-37); Blood Urea Nitrogen 16 mg/dL (9-16); Calcium 10.1 mg/dL (8.4-10.2); Carbon Dioxide 26 mmol/L (22-29); Chloride 106 mmol/L (96-108); Cholesterol 131 mg/dL (<200); Estimated Glomerular Filt Rate 51; Glucose Random 166 mg/dL (60-115); HDL Cholesterol 51 mg/dL (>40); Iron 71 mcg/dL (45-160); LDL Cholesterol Calculated 52 mg/dL (<100); Percent Iron Saturation 22 % (15-50); Potassium 4.6 mmol/L (3.3-5.1); Sodium 140 mmol/L (135-145); Total Iron Binding Capacity 319 mcg/dL (228-428); Total Protein 7.5 g/dL (6.5-8.0); Triglycerides 143 mg/dL (<150); Unsaturated Iron Binding 248 ug/dL
[2024-09-29 13:52] LABS: Thyroid Stimulating Hormone 0.76 uIU/mL (0.32-4.0)
[2024-09-29 13:54] LABS: Ferritin 28 ng/mL (20-250); Free T4 (Free Thyroxine) 1.15 ng/dL (0.71-1.85)
[2024-09-29 14:06] LABS: Folate 13.2 ng/mL (> or = 4.0); Vitamin B12 1561 pg/mL (200-900)
[2024-09-29 14:17] LABS: Creatinine Urine 74.61 mg/dL; Microalbum/Creatinine Ratio Ur 34.8 ug/mg cr (<30)
== END 2024-09-29 11:01 | disposition home or self-care (01) ==
LOC: HO.XRAY 11:00
PROVIDERS: Internal Medicine Hypertension Specialist; PCP Internal Medicine; Visit Provider Internal Medicine
DX: M25.511 Pain in right shoulder (principal); M25.512 Pain in left shoulder; E11.65 Type 2 diabetes mellitus with hyperglycemia; N28.9 Disorder of kidney and ureter, unspecified; E78.00 Pure hypercholesterolemia, unspecified
CPT/HCPCS: 36415; 73030; 80053; 80061; 82043; 82570; 82607; 82728; 82746; 83540; 84439; 84443; 84550; 85025; 85045; 86900; 86901

== ENCOUNTER 2024-10-05 11:18 | Outpatient (AMB) | payer OTHER, SELFPAY ==
--- NOTE | 2024-10-05 11:19 | A.OFFVIS_ITS ---
Vital Signs 10/05/24 11:27 Height 5 ft 9 in Weight 160 lb BMI 23.6 BP 128/63 Blood Pressure Location Rt brachial Position Sitting Pulse 72 Intake Visit Reasons: Abscess~ Rt buttock Intake Note: Patient referred by pcp Dr. Collazo for abscess on Rt buttock. Present on and off for yrs. Patient c/o: uses Vicks vaporub when it gets inflamed. 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 These be come inflamed and enlarge and symptomatic and then with local wound care received. Because of the chronicity of these ( right greater than left ) he would like to have them evaluated and removed the possible. Patient has no such lesions elsewhere. No history of inflammatory bowel disease or Crohn's disease issues. Chart was reviewed and patient evaluated [facility] Medical History Headache Iron deficiency anemia HTN (hypertension) Weight loss Acute bronchitis Sciatic nerve palsy, left Chest pain Burning chest pain Left shoulder pain Constipation Foul smelling urine BPH (benign prostatic hyperplasia) Fatty liver Renal calculi Adrenal adenoma GERD (gastroesophageal reflux disease) Hypercholesterolemia Coronary artery disease Overweight (BMI 25.0-29.9) Type 2 diabetes mellitus with hyperglycemia Surgical History Hx of hand surgery History of transurethral resection of prostate History of esophagogastroduodenoscopy (EGD) H/O colonoscopy Hx of heart artery stent 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 History of nephrolithiasis History of prostate surgery History of arthroscopy of left shoulder History of tonsillectomy Family History Father Diabetes Hypertension CVD (cardiovascular disease) Mother Diabetes Social History Household Members: Family Housing: House Are you a primary managed care specialist to a significant other at home: No Do you presently have visiting nurse or other home services: No Alcohol intake: never Patient Tobacco Use Status: Former Tobacco user Tobacco use type: Cigarette Cigarette Packs Per Day: 1.5 e-Cigarette/Vaping Use: Never Used Second Hand Smoke Exposure: Yes service: No Current occupational status: retired Cognitive needs: Yes (cane) Hearing needs: No Vision needs: Yes (perscription glasses) Physical Exam Vital Signs: Last Vital Signs Pulse 72 10/05/24 11:27 BP 128/63 10/05/24 11:27 BMI result Body Mass Index 23.6 Chest Other: Chest breath sounds bilaterally, HS 1 in 2 GI Other: Abdomen is soft, benign Back/Spine/Pelvis Other: Patient has 2 cyst type masses involving the central medial aspect of each buttock. These are well away from the anal canal and are not consistent with either a fistula tract or draining abscess. Assessment & Plan Assessment & Plan (1) Sebaceous cyst: Comment: Right Code(s): L72.3 - Sebaceous cyst Category: Surgical Plan Risks, benefits, and alternatives of excision of bilateral buttock skin cysts/masses were reviewed with the patient and included but not limited to bleeding, infection, recurrence, numbness, pain, scarring the patient wished to proceed. All questions answered. Arrangements were made for this. Coding Level of Care Code New Pt Level 5 (11494) Diagnoses Sebaceous cyst L72.3
[2024-10-05 11:27] VITALS: BP 128/63; PULSE 72; BMI 23.6
== END 2024-10-05 12:15 | disposition home or self-care (01) ==
PROVIDERS: PCP Internal Medicine; Referring Provider Internal Medicine; Visit Provider Surgery
DX: L72.3 Sebaceous cyst (principal)
CPT/HCPCS: 99204

== ENCOUNTER → 2024-10-05 11:18 | Outpatient (BNVA) | payer OTHER, SELFPAY | PROVIDERS: PCP Internal Medicine; Referring Provider Internal Medicine; Visit Provider Surgery | DX: L72.3 Sebaceous cyst (principal) | CPT/HCPCS: 99202 ==

== ENCOUNTER 2024-10-18 09:58 | Outpatient (AMB) | payer OTHER, SELFPAY ==
[2024-10-18 09:58] VITALS: BP 138/62; PULSE 77; O2SAT 96; BMI 23.6
--- NOTE | 2024-10-18 09:58 | HO.NEPHOV ---
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 Accompanied by: Self / Same As Patient Allergies lisinopril Allergy (Mild, Verified 10/18/24 10:00) Cough Penicillins Allergy (Mild, Verified 10/18/24 10:00) RASH linagliptin [Tradjenta] Adverse Reaction (Mild, Verified 10/18/24 10:00) diarrhea Medication List - Last Reconciled 10/18/24 by Timur Romo MD ascorbic acid (vitamin C) (Vitamin C) 500 mg PO BID 90 days aspirin 81 mg PO DAILY atorvastatin 40 mg PO DAILY blood sugar diagnostic As directed blood sugar diagnostic (MiArch Ultra Test strips) As directed check bs BID blood sugar diagnostic As directed check blood sugar 2 times a day cholecalciferol (vitamin D3) 25 mcg PO DAILY cyclobenzaprine 10 mg PO BEDTIME PRN dulaglutide 1.5 mg (0.5 mL) subcut FR 30 days empagliflozin 25 mg PO DAILY finasteride (Proscar) 5 mg PO DAILY 90 days furosemide 20 mg PO DAILY 90 days glipizide ER 10 mg PO DAILY isosorbide mononitrate ER 30 mg PO DAILY magnesium oxide 400 mg PO DAILY metoprolol tartrate 25 mg PO BID 90 days omeprazole 20 mg PO QAM potassium chloride ER 20 mEq PO DAILY rosuvastatin 40 mg PO DAILY simethicone (Gas Relief (simethicone)) 125 mg PO BID-QID PRN vitamin B complex (B Complex-Vitamin B12 tablet) 1 tab PO DAILY vitamin E (dl, acetate) 100 units PO DAILY [walking cane As directed] zinc acetate 25 mg PO DAILY HPI Comments Details: 77-year-old male with a history of CAD status post quadruple bypass, diabetes, hypertension, iron deficiency anemia, HLD, GERD, has been referred for CKD. Baseline serum creatinine has been around 1.2-1.4 mg/dL. After lowering Lasix 20mg QD and doing He has no edema. He has occasional lightheadedness. No urine symptoms. 07/08/24 ;C/o insomnia;Drinks coke in evening 10/18/24 No improvement in insomnia Abscess in buttocks and waiting for surgery [facility] Medical History Headache Iron deficiency anemia HTN (hypertension) Weight loss Acute bronchitis Sciatic nerve palsy, left Chest pain Burning chest pain Left shoulder pain Constipation Foul smelling urine BPH (benign prostatic hyperplasia) Fatty liver Renal calculi Adrenal adenoma GERD (gastroesophageal reflux disease) Hypercholesterolemia Coronary artery disease Overweight (BMI 25.0-29.9) Type 2 diabetes mellitus with hyperglycemia Surgical History Hx of hand surgery History of transurethral resection of prostate History of esophagogastroduodenoscopy (EGD) H/O colonoscopy Hx of heart artery stent 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 History of nephrolithiasis History of prostate surgery History of arthroscopy of left shoulder History of tonsillectomy Family History Father Diabetes Hypertension CVD (cardiovascular disease) Mother Diabetes Social History Household Members: Family Housing: House Are you a primary manager urgent care to a significant other at home: No Do you presently have visiting nurse or other home services: No Alcohol intake: never Patient Tobacco Use Status: Former Tobacco user Tobacco use type: Cigarette Cigarette Packs Per Day: 1.5 e-Cigarette/Vaping Use: Never Used Second Hand Smoke Exposure: Yes service: No Current occupational status: retired Cognitive needs: Yes (cane) Hearing needs: No Vision needs: Yes (perscription glasses) Physical Exam Vital Signs: Last Vital Signs Pulse 77 10/18/24 09:58 BP 138/62 10/18/24 09:58 Pulse Ox 96 10/18/24 09:58 Oxygen Delivery Method Room Air 10/18/24 09:58 BMI result Body Mass Index 23.6 Comfortable Neck supple no JVD. Lungs entry equal no rales. Heart S1-S2 heard no gallop or rub. Abdomen soft nontender. Neuro alert awake oriented. No asterixis. Extremities no edema. Results Reviewed Nephrology Results: Hgb 14.5 g/dl (14.0-18.0) 09/29/24 WBC 5.5 X10*3/uL (4.8-10.8) 09/29/24 Plt Count 181 X10*3/uL (160-400) 09/29/24 Sodium 140 mmol/L (135-145) 09/29/24 Potassium 4.6 mmol/L (3.3-5.1) 09/29/24 Chloride 106 mmol/L (96-108) 09/29/24 Carbon Dioxide 26 mmol/L (22-29) 09/29/24 BUN 16 mg/dL (9-16) 09/29/24 Creatinine 1.34 mg/dL (0.5-1.4) 09/29/24 Calcium 10.1 mg/dL (8.4-10.2) 09/29/24 Urine Creatinine 74.61 mg/dL 09/29/24 Assessment & Plan Assessment & Plan (1) CKD (chronic kidney disease) stage 3, GFR 30-59 ml/min: Code(s): N18.30 - Chronic kidney disease, stage 3 unspecified Category: Medical (2) Diabetes mellitus with chronic kidney disease: Code(s): E11.22 - Type 2 diabetes mellitus with diabetic chronic kidney disease Category: Medical Plan 77-year-old man with stage III CKD in a setting of longstanding hypertension diabetes mellitus and coronary disease. He has no significant proteinuria. He probably has underlying hypertension nephrosclerosis. No evidence of any obstructive uropathy. Cr is stable Keep Lasix at 20 mg a day. I have encouraged him to stay on low-sodium diet He should watch for leg edema and if he has any shortness of breath or indication to increase the Lasix to 40 mg. Agree with using SGLT-2 inhibitors for renal protection. Decreased Metoprolol to 25 mg BID from TID due to low BP and currently BP is acceptable No absolute contraindication for surgery foma renal stand point Orders: Orders Basic Metabolic Panel 6 Months E11.22 - Type 2 diabetes mellitus with diabetic chronic kidney disease, N18.30 - Chronic kidney disease, stage 3 unspecified Creatinine Urine 6 Months E11.22 - Type 2 diabetes mellitus with diabetic chronic kidney disease, N18.30 - Chronic kidney disease, stage 3 unspecified Total Protein Urine Random 6 Months E11.22 - Type 2 diabetes mellitus with diabetic chronic kidney disease, N18.30 - Chronic kidney disease, stage 3 unspecified UA and rflx microscopic 6 Months E11.22 - Type 2 diabetes mellitus with diabetic chronic kidney disease, N18.30 - Chronic kidney disease, stage 3 unspecified Coding Level of Care Code Est Pt Level 4 (94603) Diagnoses CKD (chronic kidney disease) stage 3, GFR 30-59 ml/min N18.30 Diabetes mellitus with chronic kidney disease E11.22
== END 2024-10-18 10:10 | disposition home or self-care (01) ==
PROVIDERS: PCP Internal Medicine; Visit Provider Internal Medicine Hypertension Specialist
DX: I13.10 Hypertensive heart and chronic kidney disease without heart failure, with stage 1 through stage 4 chronic kidney disease, or unspecified chronic kidney disease (principal); E11.22 Type 2 diabetes mellitus with diabetic chronic kidney disease; N18.30 Chronic kidney disease, stage 3 unspecified; I25.10 Atherosclerotic heart disease of native coronary artery without angina pectoris
CPT/HCPCS: 99214

== ENCOUNTER → 2024-10-18 09:58 | Outpatient (BNVA) | payer OTHER, SELFPAY | PROVIDERS: PCP Internal Medicine; Visit Provider Internal Medicine Hypertension Specialist | DX: Z01.818 Encounter for other preprocedural examination (principal); I25.10 Atherosclerotic heart disease of native coronary artery without angina pectoris; E11.22 Type 2 diabetes mellitus with diabetic chronic kidney disease; E78.5 Hyperlipidemia, unspecified; I12.9 Hypertensive chronic kidney disease with stage 1 through stage 4 chronic kidney disease, or unspecified chronic kidney disease; N18.30 Chronic kidney disease, stage 3 unspecified; Z87.891 Personal history of nicotine dependence; Z79.899 Other long term (current) drug therapy | CPT/HCPCS: 99212 ==

== ENCOUNTER 2024-11-09 14:01 | Outpatient (AMB) | payer OTHER, SELFPAY ==
--- NOTE | 2024-11-09 14:03 | MHC.PC.OV ---
Vital Signs 11/09/24 14:04 Height 5 ft 9 in Weight 159 lb 8 oz BMI 23.6 BP 120/62 Blood Pressure Location Lt brachial Position Sitting Pulse 85 Pulse Source Pulse Oximeter Pulse Oximetry (%) 95 Oxygen Delivery Method Room Air Intake Visit Reasons: DM Allergies lisinopril Allergy (Mild, Verified 11/09/24 14:08) Cough Penicillins Allergy (Mild, Verified 11/09/24 14:08) RASH linagliptin [Tradjenta] Adverse Reaction (Mild, Verified 11/09/24 14:08) diarrhea Medication List - Last Reconciled 11/09/24 by Aaron Collazo MD ascorbic acid (vitamin C) (Vitamin C) 500 mg PO BID 90 days aspirin 81 mg PO DAILY atorvastatin 40 mg PO DAILY blood sugar diagnostic As directed blood sugar diagnostic (Deliv Ultra Test strips) As directed check bs BID blood sugar diagnostic As directed check blood sugar 2 times a day cholecalciferol (vitamin D3) 25 mcg PO DAILY cyclobenzaprine 10 mg PO BEDTIME PRN dulaglutide 1.5 mg (0.5 mL) subcut FR 30 days empagliflozin 25 mg PO DAILY finasteride (Proscar) 5 mg PO DAILY 90 days furosemide 20 mg PO DAILY 90 days glipizide ER 10 mg PO DAILY isosorbide mononitrate ER 30 mg PO DAILY lidocaine 5% 2 patches topical DAILY magnesium oxide 400 mg PO DAILY metoprolol tartrate 25 mg PO BID 90 days omeprazole 20 mg PO QAM potassium chloride ER 20 mEq PO DAILY simethicone (Gas Relief (simethicone)) 125 mg PO BID-QID PRN vitamin B complex (B Complex-Vitamin B12 tablet) 1 tab PO DAILY vitamin E (dl, acetate) 100 units PO DAILY [walking cane As directed] zinc acetate 25 mg PO DAILY Tobacco use date assessed: 11/09/24 Fall risk assessment: 1 Fall in past year Last assessed Fall Risk: 11/09/24 Dental Screening Dental Screen Date: 11/09/24 Did you have a dental visit in the last 12 months?: Yes Did you have a dental problem in the last 6 months where you did not have access to dental care?: No Was dental information given to patient?: Patient has dentist HPI DM HPI Details The patient is an 78-year-old male presenting with upper respiratory congestions without fever lasting for two days, alongside chronic shoulder pain. His nasal mucosa appears inflamed following cessation of Flonase. He reports a concurrent dry cough. Previous assessments considered potential allergic rhinitis or viral infections. There is an unremarkable lung examination. Shoulder pain is attributed to moderate to severe osteoarthritis, with prior imaging showing near [id number] changes. Pain has significantly progressed to a debilitating level, described as resembling trauma. The patient also manages type 2 diabetes with glipizide, Jardiance, and Trulicity, aiming for better dietary control to improve glycemic levels. Recent lab results show normal renal function, and adequate electrolyte balance. Cholesterol is monitored with rosuvastatin, with past confusion over concurrent atorvastatin administration. The patient also experiences Vitamin B12 elevation due to excessive supplementation and maintains a balanced B12 dosage now. Recent concerns include shoulder worse after abscess resolution and a request for further pain management beyond lidocaine patches. The patient seeks dietary adjustments majorly reducing carbohydrates due to diabetes-related considerations. [facility] Medical History Headache Iron deficiency anemia HTN (hypertension) Weight loss Acute bronchitis Sciatic nerve palsy, left Chest pain Burning chest pain Left shoulder pain Constipation Foul smelling urine BPH (benign prostatic hyperplasia) Fatty liver Renal calculi Adrenal adenoma GERD (gastroesophageal reflux disease) Hypercholesterolemia Coronary artery disease Overweight (BMI 25.0-29.9) Type 2 diabetes mellitus with hyperglycemia Surgical History Hx of hand surgery History of transurethral resection of prostate History of esophagogastroduodenoscopy (EGD) H/O colonoscopy Hx of heart artery stent 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 History of nephrolithiasis History of prostate surgery History of arthroscopy of left shoulder History of tonsillectomy Family History Father Diabetes Hypertension CVD (cardiovascular disease) Mother Diabetes Social History Household Members: Family Housing: House Are you a primary director of managed care to a significant other at home: No Do you presently have visiting nurse or other home services: No Alcohol intake: never Patient Tobacco Use Status: Former Tobacco user Tobacco use type: Cigarette Cigarette Packs Per Day: 1.5 e-Cigarette/Vaping Use: Never Used Second Hand Smoke Exposure: Yes service: No Current occupational status: retired Cognitive needs: Yes (cane) Hearing needs: No Vision needs: Yes (perscription glasses) Questionnaire PHQ-9 Over the last 2 weeks, how often have you been bothered by any of the following problems? 1. Little interest or pleasure in doing things: not at all 2. Feeling down, depressed, or hopeless: not at all 3. Trouble falling or staying asleep, or sleeping too much: not at all 4. Feeling tired or having little energy: not at all 5. Poor appetite or overeating: not at all 6. Feeling bad about yourself - or that you are a failure or have let yourself or your family down: not at all 7. Trouble concentrating on things, such as reading the newspaper or watching television: not at all 8. Moving or speaking so slowly that other people could have noticed. Or the opposite - being so fidgety or restless that you have been moving around a lot more than usual: not at all 9. Thoughts that you would be better off or of hurting yourself in some way: not at all Total score: 0 Depression Screening Interpretation: Negative Depression Screening Done: Yes 79039 - PHQ-9 Billing: Yes Source: Developed by Drs. Elbert Boogie, Esther Hilliard, Anurag Gupta and colleagues, with an educational elfego from [employer]. Thrive Questionnaire Date Thrive assessed: 11/09/24 I am a: Patient What is your living situation today?: I have a steady place to live Within the past 12 months, did the food you bought not last and you didn't have the money to get more?: Never true Within the past 12 months, did you worry whether your food would run out before you got money to buy more?: Never true Do you have trouble paying for medicines?: No Do you have trouble getting transportation to medical appointments?: No Do you have trouble paying your heating and electricity bill?: No Do you have trouble taking care of your child, family member or friend?: No Do you have trouble with day-to-day activities such as bathing, preparing meals, shopping, managing finances, etc.?: No Are you currently unemployed and looking for a job?: No Are you interested in more education?: No Please select the resources that you would like help with: None THRIVE Score: 0 AUDIT C Alcohol Use Questionnaire (AUDIT-C) 1. How often do you have a drink containing alcohol?: Never 3. How often do you have six or more drinks on one occasion?: Never Total Score: 0 TRINH-7 AMB Questionnaire TRINH-7 Date TRINH - 7 assessed: 11/09/24 Feeling nervous, anxious, or on edge: 0 = Not at all Not being able to stop or control worryin = Not at all Worrying too much about different things: 0 = Not at all Trouble relaxin = Not at all Being so restless that it is hard to sit still: 0 = Not at all Becoming easily annoyed or irritable: 0 = Not at all Feeling afraid as if something awful might happen: 0 = Not at all Total TRINH-7 score (0-4 normal; 5-9 mild; 10-14 moderate; 15-21 severe): 0 Source: Developed by Drs. Elbert Boogie, Esther Hilliard, Anurag Gupta and colleagues, with an educational elfego from [employer]. TRINH-7 Assessment Billing TRINH-7 Assessment Tool: TRINH-7 Assessment 79811 Physical exam (Primary Care) Vital Signs: Last Vital Signs Pulse 85 11/09/24 14:04 BP 120/62 11/09/24 14:04 Pulse Ox 95 11/09/24 14:04 Oxygen Delivery Method Room Air 11/09/24 14:04 BMI result Body Mass Index 23.6 Tobacco/Smoking Status: Tobacco use Status Tobacco use date assessed 11/09/24 11/09/24 14:10 Patient Tobacco Use Status Former Tobacco user 11/09/24 14:10 Tobacco use type Cigarette 11/09/24 14:10 e-Cigarette/Vaping Use Never Used 11/09/24 14:10 PHQ-9: PHQ-9 Score PHQ-9: Total score 0 11/09/24 14:46 Depression Screening Interpretation: Negative Thrive Assessment: Date of Thrive Assessment Date Thrive assessed 11/09/24 11/09/24 14:10 Const General: alert; No acute distress Eyes Conjunctivae: conjunctivae normal Resp Auscultation: clear to auscultation bilaterally Cardio Rate: regular rate Rhythm: regular rhythm GI Inspection: Yes normal to inspection Extrem General: Yes normal to inspection and No edema Results AMB Hemoglobin A1c AMB Hemoglobin A1c 8.5 % Last Edit by Rissa Child CMA on 11/09/24 14:13 Immunizations tetanus-diphtheria toxoids-Td 2 Lf unit-2 Lf unit/0.5 mL IM suspension Performing Provider: Aaron Collazo MD Performing Location: [facility] Administered by: Rissa Child CMA on 11/09/24 14:46 Dose Route Admin Location Dispensed Lot Number Expiration Date NDC Drafting Supervisor 0.5 mL IM Right Tricep 0.5 mL [id number] 12/27/24 [address]-1 [employer] VIS Given Date VIS Provided VIS Publication Date 11/09/24 Single Vaccine 21 Eligibility Eligibility Date Funding Source Not [facility] Eligible 11/09/24 [facility] Results Reviewed Results Reviewed: Laboratory Last Values Hgb A1c (Clinic) 8.5 % (4.0-6.0) H 11/09/24 14:11 Coding Level of Care Code Est Pt Level 4 (48051) Diagnoses Type 2 diabetes mellitus with hyperglycemia, without long-term current use of insulin E11.65 Diabetes mellitus halfway insulin use: without halfway use Hypercholesterolemia E78.00 Gastroesophageal reflux disease without esophagitis K21.9 Esophagitis presence: without esophagitis Generalized anxiety disorder F41.1 BPH (benign prostatic hyperplasia) N40.0 Coronary artery disease involving [place] coronary artery of [place] heart without angina pectoris I25.10 Associated angina: without angina Coronary Disease-Associated Artery/Lesion type: [place] artery [place] vs. transplanted heart: [place] heart CKD (chronic kidney disease) stage 3, GFR 30-59 ml/min N18.30 HTN (hypertension) I10 Primary osteoarthritis, right shoulder M19.011 Additional Codes TRINH-7 Assessment Billing - TRINH-7 Assessment Tool: TRINH-7 Assessment 03874 ([id number]) PHQ-9 - 90957 - PHQ-9 Billing: Yes ([id number]) Assessment & Plan Assessment & Plan (1) Type 2 diabetes mellitus with hyperglycemia: 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 Patient on glipizide 10 mg once a day Jardiance 25 mg once a day Trulicity at 1.5 mg once a week patient declined any additional changes to medication presently. (2) Hypercholesterolemia: Code(s): E78.00 - Pure hypercholesterolemia, unspecified Category: Medical Plan: Avoid fried foods, chicken skin, eggs, butter margarine, pastries and meat. Be it pork or beef they have a lot of cholesterol LDL goal of less than 70 on rosuvastatin 40 mg once a day (3) GERD (gastroesophageal reflux disease): Code(s): K21.9 - Gastro-esophageal reflux disease without esophagitis Category: Medical Qualifiers: Esophagitis presence: without esophagitis Qualified Code(s): K21.9 - Gastro-esophageal reflux disease without esophagitis Plan: Avoid the foods that causes that usually spicy foods, tomato products, juices, coffee, soda and foods that your sensitive to. After eating do not lie down, allow 3-4 hours before in lie down. And keep the head of bed above 30 degrees to avoid the acid from going up. (4) Generalized anxiety disorder: Code(s): F41.1 - Generalized anxiety disorder Category: Medical Plan: Stable (5) BPH (benign prostatic hyperplasia): Code(s): N40.0 - Benign prostatic hyperplasia without lower urinary tract symptoms Category: Medical Plan: Continue with finasteride (6) Coronary artery disease: Comment: CABG August [address] Rhodes Code(s): I25.10 - Atherosclerotic heart disease of [place] coronary artery without angina pectoris Category: Medical Qualifiers: Associated angina: without angina Coronary Disease-Associated Artery/Lesion type: [place] artery [place] vs. transplanted heart: [place] heart Qualified Code(s): I25.10 - Atherosclerotic heart disease of [place] coronary artery without angina pectoris Plan: Control the cholesterol, weight, blood pressure, diabetes on aspirin and isosorbide mononitrate 30 mg once a day (7) CKD (chronic kidney disease) stage 3, GFR 30-59 ml/min: Code(s): N18.30 - Chronic kidney disease, stage 3 unspecified Category: Medical Plan: Avoid NSAIDs, keep well hydrated (8) HTN (hypertension): Code(s): I10 - Essential (primary) hypertension Category: Medical Plan: Continue with blood pressure medication. Decrease salt intake and exercise on metoprolol 25 mg twice a day (9) Primary osteoarthritis, right shoulder: Code(s): M19.011 - Primary osteoarthritis, right shoulder Category: Medical Plan: Referral to orthopedics done Plan - For upper respiratory congestion: Advise allergy medication with the option for COVID-19, influenza, and RSV testing if symptoms persist. Monitor for any viral infection indicators. - For shoulder osteoarthritis: Referral to orthopedics is in place. Discussed potential for tramadol if lidocaine patch is insufficient, though insurance coverage may be an issue. - For Type 2 Diabetes Mellitus: Emphasis on carbohydrate restriction in diet, continuation of current diabetic medications without dose modification, and maintaining physical activity within pain tolerance. - For hyperlipidemia: Continue with rosuvastatin, ensuring clarification of prescription duration with the pharmacy. Orders: Orders AMB Hemoglobin A1c Today Z13.9 - Encounter for screening, unspecified Td State Immunization Today Z23 - Encounter for immunization Referrals Orthopedics Referral M19.011 - Primary osteoarthritis, right shoulder Medications: New lidocaine 5% leave on most painful area for up to 12 hrs 2 patches topical DAILY 30 ea 0RF M19.011 - Primary osteoarthritis, right shoulder Refilled rosuvastatin 40 mg PO DAILY 90 tabs 3RF M19.011 - Primary osteoarthritis, right shoulder glipizide ER 10 mg PO DAILY 90 tabs 2RF E11.65 - Type 2 diabetes mellitus with hyperglycemia Discontinued rosuvastatin Discontinued Reason: Doctor's Order 40 mg PO DAILY 90 tabs 3RF
[2024-11-09 14:04] VITALS: BP 120/62; PULSE 85; O2SAT 95; BMI 23.6
== END 2024-11-09 14:49 | disposition home or self-care (01) ==
PROVIDERS: PCP Internal Medicine; Visit Provider Internal Medicine
DX: I12.9 Hypertensive chronic kidney disease with stage 1 through stage 4 chronic kidney disease, or unspecified chronic kidney disease (principal); E11.65 Type 2 diabetes mellitus with hyperglycemia; N18.30 Chronic kidney disease, stage 3 unspecified; E78.00 Pure hypercholesterolemia, unspecified; K21.9 Gastro-esophageal reflux disease without esophagitis; F41.1 Generalized anxiety disorder; N40.0 Benign prostatic hyperplasia without lower urinary tract symptoms; I25.10 Atherosclerotic heart disease of native coronary artery without angina pectoris; M19.011 Primary osteoarthritis, right shoulder; Z23 Encounter for immunization

== ENCOUNTER → 2024-11-09 14:01 | Outpatient (BNVA) | payer OTHER, SELFPAY | PROVIDERS: PCP Internal Medicine; Visit Provider Internal Medicine | DX: E11.65 Type 2 diabetes mellitus with hyperglycemia (principal); E78.00 Pure hypercholesterolemia, unspecified; M19.011 Primary osteoarthritis, right shoulder; K21.9 Gastro-esophageal reflux disease without esophagitis; F41.1 Generalized anxiety disorder; N40.0 Benign prostatic hyperplasia without lower urinary tract symptoms; I25.10 Atherosclerotic heart disease of native coronary artery without angina pectoris; I12.9 Hypertensive chronic kidney disease with stage 1 through stage 4 chronic kidney disease, or unspecified chronic kidney disease; N18.30 Chronic kidney disease, stage 3 unspecified; Z23 Encounter for immunization; Z79.899 Other long term (current) drug therapy | CPT/HCPCS: 83036; 90471; 90714; 96127; 99212 ==

== ENCOUNTER 2024-12-14 09:39 | Outpatient (AMB) | payer OTHER, SELFPAY ==
[2024-12-14 09:54] VITALS: BMI 23.6
--- NOTE | 2024-12-14 09:54 | MHC.OFFVIS ---
Vital Signs 12/14/24 09:54 Height 5 ft 9 in Weight 159 lb 8 oz BMI 23.6 Intake Visit Reasons: Right shoulder pain and weakness Intake Note: Calderon is an 79 year old right hand dominant male who presents with complaints of progressively worsening right shoulder pain and weakness. The patient states that he had similar pain and weakness in his left shoulder several years ago. He underwent left shoulder surgery by Dr. Garay. He reports minimal discomfort in his left shoulder. He describes his right shoulder pain as sharp and severe in nature. His right shoulder pain has gotten worse over the last 3 years in spite of continued non operative treatments. He has had injections in the past which gave him minimal relief. He has also done physical therapy which aggravated his pain. Has tried Tylenol and anti-inflammatory medicines which gave him no relief. The patient reports difficulty lifting his right hand above shoulder height. He has failed the last 6 weeks of conservative treatment which has included physical therapy exercises, Tylenol and anti-inflammatory medicines. SX/Injury: neither Allergies lisinopril Allergy (Mild, Verified 12/14/24 09:55) Cough Penicillins Allergy (Mild, Verified 12/14/24 09:55) RASH linagliptin [Tradjenta] Adverse Reaction (Mild, Verified 12/14/24 09:55) diarrhea Medication List - Last Reconciled 12/14/24 by David Gutierrez MD ascorbic acid (vitamin C) (Vitamin C) 500 mg PO BID 90 days aspirin 81 mg PO DAILY blood sugar diagnostic As directed blood sugar diagnostic (OneTouch Ultra Test strips) As directed check bs BID blood sugar diagnostic As directed check blood sugar 2 times a day cholecalciferol (vitamin D3) 25 mcg PO DAILY cyclobenzaprine 10 mg PO BEDTIME PRN dulaglutide 1.5 mg (0.5 mL) subcut FR 30 days empagliflozin 25 mg PO DAILY finasteride (Proscar) 5 mg PO DAILY 90 days furosemide 20 mg PO DAILY 90 days glipizide ER 10 mg PO DAILY isosorbide mononitrate ER 30 mg PO DAILY lidocaine 5% 2 patches topical DAILY magnesium oxide 400 mg PO DAILY metoprolol tartrate 25 mg PO BID 90 days omeprazole 20 mg PO QAM potassium chloride ER 20 mEq PO DAILY rosuvastatin 40 mg PO DAILY simethicone (Gas Relief (simethicone)) 125 mg PO BID-QID PRN vitamin B complex (B Complex-Vitamin B12 tablet) 1 tab PO DAILY vitamin E (dl, acetate) 100 units PO DAILY [walking cane As directed] zinc acetate 25 mg PO DAILY PFSH Medical History Headache Iron deficiency anemia HTN (hypertension) Weight loss Acute bronchitis Sciatic nerve palsy, left Chest pain Burning chest pain Left shoulder pain Constipation Foul smelling urine BPH (benign prostatic hyperplasia) Fatty liver Renal calculi Adrenal adenoma GERD (gastroesophageal reflux disease) Hypercholesterolemia Coronary artery disease Overweight (BMI 25.0-29.9) Type 2 diabetes mellitus with hyperglycemia Surgical History Hx of hand surgery History of transurethral resection of prostate History of esophagogastroduodenoscopy (EGD) H/O colonoscopy Hx of heart artery stent 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 History of nephrolithiasis History of prostate surgery History of arthroscopy of left shoulder History of tonsillectomy Family History Father Diabetes Hypertension CVD (cardiovascular disease) Mother Diabetes Social History Household Members: Family Housing: House Are you a primary plant health care technician to a significant other at home: No Do you presently have visiting nurse or other home services: No Alcohol intake: never Patient Tobacco Use Status: Former Tobacco user Tobacco use type: Cigarette Cigarette Packs Per Day: 1.5 e-Cigarette/Vaping Use: Never Used Second Hand Smoke Exposure: Yes service: No Current occupational status: retired Cognitive needs: Yes (cane) Hearing needs: No Vision needs: Yes (perscription glasses) Physical Exam Vital Signs: BMI result Body Mass Index 23.6 Const Other: Well-nourished well-developed very friendly male awake alert and oriented x3 in no acute distress Extrem Other: Bilateral upper extremity examination shows good capillary refill, no skin lesions noted, normal sensation light touch Right shoulder examination shows decreased range of motion when compared to his left shoulder, 3/5 strength with supraspinatus testing, positive impingement signs, no instability Results Reviewed Results Reviewed: X-rays of the patient's right shoulder show severe acromioclavicular joint narrowing, a type 2 acromion, no acute bony abnormalities Assessment & Plan Assessment & Plan (1) Rotator cuff insufficiency of right shoulder: Code(s): M25.311 - Other instability, right shoulder Category: Medical Plan Mr. Crowley presents with progressively worsening right shoulder pain and weakness most likely due to a full-thickness rotator cuff tear. Thus, I will send the patient for an MRI of his right shoulder for further evaluation. I will contact him by phone once the MRI results are available. He will continue with his range of motion exercises in the meantime. Feel free to call me at any time should questions regarding his orthopedic management arise. Thank you very much for asking me to see this very friendly gentleman. I spent 21 minutes in reviewing the patient's records and imaging studies, seeing the patient and documenting in the medical record. Orders: Orders MR shoulder RT wo con Today M25.311 - Other instability, right shoulder Coding Level of Care Code Est Pt Level 3 (05286) Complex EM visit Add On G2211 Diagnoses Rotator cuff insufficiency of right shoulder M25.311
--- OUTSIDE RECORDS SUMMARY | 2024-12-14 10:16 | XMS_ITS | Patient Health Record ---
Author Organization [facility] Address [address] [place] [address] Care Team Providers Care Marketing Pr Intern Name Role Phone Aaron Collazo MD Primary Care Provider Elbert Hanson [phone] ALLERGIES Allergen (clinical drug ingredient) Drug/Non Drug Allergy documented on EMR Reaction Allergy Type Onset Date Status Penicillin Unknown Drug Allergy Active REASON FOR REFERRAL No Information MEDICATIONS Medication SIG (Take, Route, Frequency, Duration) Notes Start Date End Date Status Atorvastatin Calcium 20 MG 1 tablet Oral ly Once a day Active glipiZIDE XL 2.5 MG 1 tablet Orally Once a day Active Vitamin B-12 1000 MCG 1 tablet Orally twice a day Active Alfuzosin HCl ER 10 MG 1 tablet immediat amy after the same meal Orally Once a day Active Vitamin E 400 UNIT 1 capsule Orally Once a day for 30 day(s) Active hydroCHLOROthiazide 12.5 MG 1 tablet Ora lly Once a day Not-Taking metFORMIN HCl 500 MG 1 tablet with meals Orally three x a day Active Onglyza 5 MG 1 tablet Orally Once a day Not-Taking Metoprolol Tartrate 100 MG 1 tablet with food Oral Twice a day Active Omeprazole 20 MG 1 capsule Orally Once a day Active Vitamin D 1000 UNIT 1 tablet Orally Once a day Active Aspir-81 81 MG 1 tablet Orally Once a day Active IMMUNIZATIONS Vaccine Route Administration Date Status Comme nts Flu vaccine no Preserv 3 and > Unknown 08/22/2015 Admin istered Influenza Unknown 08/17/2018 Administered Influenza Unknown 10/09/2021 Administered Influenza Unknown 08/17/2022 Administered SOCIAL HISTORY Sex Assigned At : Social History Observation Description Sex Assigned At Unknown PROBLEMS Problem Type ICD Code Onset Dates Problem Status W/U Status Risk SNOMED Code Notes Problem Gastroesophageal reflux disease without esophagitis (K21.9) Active confirmed 690036480 Problem Encounter for screening for malignant neoplasm of colon (Z12.11) Active confirmed 210148172 Problem Encounter for screening for malignant neoplasm of rectum (Z12.12) Active confirmed Screening for malignant neoplasm of rectum (282243754) Problem Hx of adenomatous colonic polyps (Z86.010) Active confirmed 373364010 Problem Long-term use of aspirin therapy (Z79.82) Active confirmed 317909372 Problem Iron deficiency anemia (D50.9) Active confirmed Iron deficien cy anemia (72038838) Problem GERD (gastroesophageal reflux disease) (K21.9) Active confirmed Gastroesophagea l reflux disease (976492910) Problem Diverticulosis of colon (K57.30) Active confirmed Diverticulosi s of colon (481255905) Problem Gastritis (K29.70) Active confirmed Gas tritis (2798320) PLAN OF TREATMENT Future Test Test Name Order Date COLONOSCOPY 03/09/2019 UPPER GI ENDOSCOPY 06/05/2022 COLONOSCOPY 06/05/2022 Insurance Providers Payer Name Payer Address Payer Phone Subscriber Number Group Number Insured Name Patient Relationship to Insured Coverage Start Date Coverage End Date MEDICARE OF [place] [address] [place] [address] [id number] MAGDY KLEIN Self - patient is the insured MEDICAID OF [facility] [address] [place] [address] [id number] ERNIE MAGDY Self - patient is the insured MEDICAL (GENERAL) HISTORY Medical History History ICD Code 10/20/2008 colonoscopy--- ne gative except for diverticulosis and internal hemorrhoids Coronary artery disease--[address] Will--most recent was in approx 2007 NIDDM Hypertension History of kidney stones Denies DC,CVA,Lung disease,renal disease GERD--EGD with Dr. Bruce in 2009--hiatal hernia and mild reflux esophagitis; gastritis and H. pylori--he thinks he received antibiotics for that He swallowed a bone in February of 2016 causing a localized inflammation and/or infection in the sigmoid colon--the bone was removed endoscopically by Dr. Dickey, and residual inflammation and infection was treated with antibiotics--he did not require surgery Colonoscopy in 03/2019 with a small tubul ar adenoma removed CAD with 4V CABG Iron def anemia--sees Dr. Beltrán--has gates d Iron infusions EGD 06/2022 with a small hiat al hernia, normal duodenal biopsies without any sign of celiac disease, and no esophagitis. Gastric biopsies were negative for H.pylori. Colonoscopy 06/2022 with a small tubular adenoma removed Surgical History Surgery Date(Month/Year) Tonsillectomy Eye surgery left prostate surgery 4V CABG 08/2019
== END 2024-12-14 10:11 | disposition home or self-care (01) ==
PROVIDERS: PCP Internal Medicine; Visit Provider Orthopaedic Surgery
DX: M25.311 Other instability, right shoulder (principal)
CPT/HCPCS: 99213

== ENCOUNTER → 2024-12-14 09:39 | Outpatient (BNVA) | payer OTHER, SELFPAY | PROVIDERS: PCP Internal Medicine; Visit Provider Orthopaedic Surgery | DX: M25.311 Other instability, right shoulder (principal) | CPT/HCPCS: 99212 ==

== ENCOUNTER 2024-12-28 09:01 | Outpatient (AMB) | payer OTHER, SELFPAY ==
--- NOTE | 2024-12-28 09:19 | MHC.PC.OV ---
Vital Signs 12/28/24 09:20 Height 5 ft 9 in Weight 159 lb BMI 23.5 BP 130/72 Blood Pressure Location Lt brachial Position Sitting Pulse 75 Pulse Source Pulse Oximeter Pulse Oximetry (%) 97 Oxygen Delivery Method Room Air Intake Visit Reasons: red discoloration on neck Allergies lisinopril Allergy (Mild, Verified 12/28/24 09:20) Cough Penicillins Allergy (Mild, Verified 12/28/24 09:20) RASH linagliptin [Tradjenta] Adverse Reaction (Mild, Verified 12/28/24 09:20) diarrhea Tobacco use date assessed: 12/28/24 Fall risk assessment: No Falls in past year Last assessed Fall Risk: 12/28/24 Dental Screening Dental Screen Date: 12/28/24 Did you have a dental visit in the last 12 months?: Yes Did you have a dental problem in the last 6 months where you did not have access to dental care?: No Was dental information given to patient?: Patient has dentist HPI red discoloration on neck HPI Details 2 months ago noted a red linear rash on the R side of the neck also The patient is an 79-year-old male presenting with right shoulder pain and a rash on the neck. The shoulder pain was noted in November following an orthopedic consultation concerned about rotator cuff insufficiency, with an MRI pending. Further discussion indicated a longstanding issue, as the pain was being managed with lidocaine patches and hot showers, providing some relief, although not resolving the underlying issue. The rash on the patient's neck appeared approximately two months prior and matches the pattern of contact dermatitis. The patient noted occasional itchiness and redness. The onset of the rash coincided with wearing new clothing, although he is uncertain of the exact trigger. Previous interactions indicated anxiety about potential lymphoproliferative disorders, which was alleviated after examination pointed to contact dermatitis. [facility] Medical History Headache Iron deficiency anemia HTN (hypertension) Weight loss Acute bronchitis Sciatic nerve palsy, left Chest pain Burning chest pain Left shoulder pain Constipation Foul smelling urine BPH (benign prostatic hyperplasia) Fatty liver Renal calculi Adrenal adenoma GERD (gastroesophageal reflux disease) Hypercholesterolemia Coronary artery disease Overweight (BMI 25.0-29.9) Type 2 diabetes mellitus with hyperglycemia Surgical History Hx of hand surgery History of transurethral resection of prostate History of esophagogastroduodenoscopy (EGD) H/O colonoscopy Hx of heart artery stent 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 History of nephrolithiasis History of prostate surgery History of arthroscopy of left shoulder History of tonsillectomy Family History Father Diabetes Hypertension CVD (cardiovascular disease) Mother Diabetes Social History Household Members: Family Housing: House Are you a primary director of healthcare systems to a significant other at home: No Do you presently have visiting nurse or other home services: No Alcohol intake: never Patient Tobacco Use Status: Former Tobacco user Tobacco use type: Cigarette Cigarette Packs Per Day: 1.5 e-Cigarette/Vaping Use: Never Used Second Hand Smoke Exposure: Yes service: No Current occupational status: retired Cognitive needs: Yes (cane) Hearing needs: No Vision needs: Yes (perscription glasses) Questionnaire PHQ-9 Over the last 2 weeks, how often have you been bothered by any of the following problems? 1. Little interest or pleasure in doing things: not at all 2. Feeling down, depressed, or hopeless: not at all 3. Trouble falling or staying asleep, or sleeping too much: not at all 4. Feeling tired or having little energy: not at all 5. Poor appetite or overeating: not at all 6. Feeling bad about yourself - or that you are a failure or have let yourself or your family down: not at all 7. Trouble concentrating on things, such as reading the newspaper or watching television: not at all 8. Moving or speaking so slowly that other people could have noticed. Or the opposite - being so fidgety or restless that you have been moving around a lot more than usual: not at all 9. Thoughts that you would be better off or of hurting yourself in some way: not at all Total score: 0 Depression Screening Interpretation: Negative Depression Screening Done: Yes 03757 - PHQ-9 Billing: Yes Source: Developed by Drs. Elbert Boogie, Esther Hilliard, Anurag Gupta and colleagues, with an educational elfego from [employer]. Thrive Questionnaire Date Thrive assessed: 12/28/24 I am a: Patient What is your living situation today?: I have a steady place to live Within the past 12 months, did the food you bought not last and you didn't have the money to get more?: Never true Within the past 12 months, did you worry whether your food would run out before you got money to buy more?: Never true Do you have trouble paying for medicines?: No Do you have trouble getting transportation to medical appointments?: No Do you have trouble paying your heating and electricity bill?: No Do you have trouble taking care of your child, family member or friend?: No Do you have trouble with day-to-day activities such as bathing, preparing meals, shopping, managing finances, etc.?: No Are you currently unemployed and looking for a job?: No Are you interested in more education?: No Please select the resources that you would like help with: None Currently or been in a relationship where the following occur: No concerns reported THRIVE Score: 0 AUDIT C Alcohol Use Questionnaire (AUDIT-C) 1. How often do you have a drink containing alcohol?: Never 3. How often do you have six or more drinks on one occasion?: Never Total Score: 0 TRINH-7 AMB Questionnaire TRINH-7 Date TRINH - 7 assessed: 12/28/24 Feeling nervous, anxious, or on edge: 0 = Not at all Not being able to stop or control worryin = Not at all Worrying too much about different things: 0 = Not at all Trouble relaxin = Not at all Being so restless that it is hard to sit still: 0 = Not at all Becoming easily annoyed or irritable: 0 = Not at all Feeling afraid as if something awful might happen: 0 = Not at all Total TRINH-7 score (0-4 normal; 5-9 mild; 10-14 moderate; 15-21 severe): 0 Source: Developed by Drs. Elbert Boogie, Esther Hilliard, Anurag Gupta and colleagues, with an educational elfego from [employer]. TRINH-7 Assessment Billing TRINH-7 Assessment Tool: TRINH-7 Assessment 06384 Physical exam (Primary Care) Vital Signs: Last Vital Signs Pulse 75 12/28/24 09:20 BP 130/72 12/28/24 09:20 Pulse Ox 97 12/28/24 09:20 Oxygen Delivery Method Room Air 12/28/24 09:20 BMI result Body Mass Index 23.5 Tobacco/Smoking Status: Tobacco use Status Tobacco use date assessed 12/28/24 12/28/24 09:22 Patient Tobacco Use Status Former Tobacco user 12/28/24 09:22 Tobacco use type Cigarette 12/28/24 09:22 e-Cigarette/Vaping Use Never Used 12/28/24 09:22 PHQ-9: PHQ-9 Score PHQ-9: Total score 0 12/28/24 09:26 Depression Screening Interpretation: Negative Thrive Assessment: Date of Thrive Assessment Date Thrive assessed 12/28/24 12/28/24 09:22 Currently or been in a relationship where the following occur: No concerns reported Const General: alert; No acute distress [facility] Head images: 1. 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.311 Additional Codes TRINH-7 Assessment Billing - TRINH-7 Assessment Tool: TRINH-7 Assessment 28457 ([id number]) PHQ-9 - 90441 - PHQ-9 Billing: Yes ([id number]) Assessment & Plan Assessment & Plan (1) Contact dermatitis: Comment: R side of neck area Code(s): L25.9 - Unspecified contact dermatitis, unspecified cause Category: Medical Plan: will send in steroid cream twice a day for 2 weeks - if not any better - send to dermatology (2) Rotator cuff insufficiency of right shoulder: Code(s): M25.311 - Other instability, right shoulder Category: Medical Plan: will have MRI done scheduled Plan - Prescribe topically applied cream for the rash, to be used twice daily for one to two weeks, reassessing if unresolved. - Instruct the patient to observe potential allergens or irritants that could exacerbate the dermatitis. - Pending MRI to confirm right shoulder pathology; educate the patient on continued use of lidocaine patches as interim pain relief. - Reinforcement of chronic disease management for diabetes, anxiety, chronic kidney disease, and cardiovascular risk factors; ensure continuation of current medication regime. - Recommend patient minimizes exposure to infectious diseases due to seasonal prevalence. - Advise the usage of acetaminophen for general pain control, noting preference over NSAIDs given renal considerations. Medications: New triamcinolone acetonide 0.5% 1 appl topical BID 30 grams 0RF L25.9 - Unspecified contact dermatitis, unspecified cause
[2024-12-28 09:20] VITALS: BP 130/72; PULSE 75; O2SAT 97; BMI 23.5
== END 2024-12-28 10:11 | disposition home or self-care (01) ==
PROVIDERS: PCP Internal Medicine; Visit Provider Internal Medicine
DX: L25.9 Unspecified contact dermatitis, unspecified cause (principal); M25.311 Other instability, right shoulder

== ENCOUNTER → 2024-12-28 09:01 | Outpatient (BNVA) | payer OTHER, SELFPAY | PROVIDERS: PCP Internal Medicine; Visit Provider Internal Medicine | DX: L25.9 Unspecified contact dermatitis, unspecified cause (principal); M25.311 Other instability, right shoulder | CPT/HCPCS: 96127; 99212 ==

== ENCOUNTER → 2025-01-04 10:44 | Outpatient (BNV) | payer OTHER, SELFPAY | PROVIDERS: PCP Internal Medicine; Visit Provider Radiology Diagnostic Radiology | DX: M75.101 Unspecified rotator cuff tear or rupture of right shoulder, not specified as traumatic (principal); M75.31 Calcific tendinitis of right shoulder; M62.511 Muscle wasting and atrophy, not elsewhere classified, right shoulder | CPT/HCPCS: 73221 ==

== ENCOUNTER 2025-01-04 10:46 | Outpatient (REF) | payer OTHER, SELFPAY ==
--- NOTE | ~2025-01-04 | MR_ITS ---
CLINICAL HISTORY: M25.311 - Other instability, right shoulder MR right shoulder without gadolinium Comparison: None Findings: Full-thickness retracted tear of the supraspinatus and infraspinatus tendon with majority of the tendon retracted to the superior margin of the humeral head. Size estimated at 2 cm medial to lateral and 3.5 cm anterior-posterior. Few additional intact posterior fibers of the infraspinatus. Intact teres minor tendon. Articular surface partial tear of the subscapularis tendon. Bursal surface fibers including transverse humeral component intact. Medial subluxation of the long head of the biceps tendon. Marked atrophy of the subscapularis muscle. Normal volume of the supraspinatus, infraspinatus and teres minor muscles. Type 2 acromion without anterolateral downsloping. Prominent degenerative arthritis of the AC joint. Inferior osteophyte from the distal clavicle deforming the supraspinatus myotendinous junction. Mildly thickened acromioclavicular ligament insertion. Small glenohumeral joint effusion freely extending to the subdeltoid subacromial bursa. Mild chondrosis glenohumeral joint more pronounced posterior inferiorly. No subchondral marrow changes. Mild hypertrophic changes. Degenerative signal changes superior labrum. Small tear of the posterior labrum inferiorly extending to the inferior labrum. No large or displaced tear. Small posterior paralabral cyst at approximately 5 x 11 x 10 mm. Severe tendinosis and/or high-grade partial tear of the intra-articular biceps tendon which appears severely attenuated as it becomes extra-articular. Interstitial tear component within the extra-articular tendon within the biceps sheath. Reactive bone marrow edema and mild cystic change in the greater tuberosity. A generalized increase in T2 signal throughout the remainder of the scapula including coracoid process, glenoid, scapular spine and body suggesting physiologic marrow change with normal T1 signal. Suprascapular, spinoglenoid notch and quadrilateral space are unremarkable. Impression: Large full-thickness retracted tears of the supraspinatus and infraspinatus tendons with tendon retracted to the superior margin of the humeral head. Tear at approximately 2 x 3.5 cm in length and width. Severe tendinosis and articular surface partial tear of the subscapularis tendon. Bursal surface fibers intact. Atrophic subscapularis muscle. No significant volume loss or fatty infiltration of the remaining cuff muscles. Severe tendinosis and high-grade partial tear suggested of the intra-articular biceps with interstitial tear component of the extra-articular biceps. Mild medial subluxation of the tendon. Reactive marrow edema in the anterior humeral head. Degenerative tear of the posterior labrum with small paralabral cyst. Small joint effusion freely extending to the subdeltoid subacromial bursa. This document has been electronically signed by: Theodore Khan MD on 01/05/2025 12:15:36
--- OUTSIDE RECORDS SUMMARY | 2025-01-04 11:55 | XMS_ITS | Patient Health Record ---
Author Organization [facility] Address [address] [place] [address] Care Team Providers Care Manager Retail Name Role Phone Aaron Collazo MD Primary Care Provider Elbert Hanson [phone] ALLERGIES Allergen (clinical drug ingredient) Drug/Non Drug [...] reflux disease without esophagitis (K21.9) Active confirmed 190125508 Problem Encounter for screening for malignant neoplasm of colon (Z12.11) Active confirmed 752133092 Problem Encounter for screening for malignant neoplasm of rectum (Z12.12) Active confirmed Screening for malignant neoplasm of rectum (182773492) Problem Hx of adenomatous colonic polyps (Z86.010) Active confirmed 272309212 Problem Long-term use of aspirin therapy (Z79.82) Active confirmed 245469399 Problem Iron deficiency anemia (D50.9) Active confirmed Iron deficien cy anemia (00567962) Problem GERD (gastroesophageal reflux disease) (K21.9) Active confirmed Gastroesophagea l reflux disease (176228461) Problem Diverticulosis of colon (K57.30) Active confirmed Diverticulosi s of colon (399296664) Problem Gastritis (K29.70) Active confirmed Gas tritis (0634088) PLAN OF TREATMENT Future Test Test Name Order Date COLONOSCOPY 03/09/2019 UPPER GI ENDOSCOPY 06/05/2022 COLONOSCOPY 06/05/2022 Insurance Providers Payer Name Payer Address Payer Phone Subscriber Number Group Number Insured Name Patient Relationship to Insured Coverage Start Date Coverage End Date MEDICARE OF [place] [address] [place] [address] [phone] [id number] MAGDY KLEIN Self - patient is the insured MEDICAID OF [facility] [address] [place] [address] [id number] ERNIE MAGDY Self - patient is the insured MEDICAL (GENERAL) HISTORY Medical History History ICD Code 10/20/2008 colonoscopy--- ne gative except for diverticulosis and internal hemorrhoids Coronary artery disease--2 s [address] placed by Dr. Will--most recent was in approx 2007 NIDDM Hypertension History of kidney stones Denies CA,CVA,Lung disease,renal disease GERD--EGD with Dr. Bruce in [...]
== END 2025-01-04 10:47 | disposition home or self-care (01) ==
LOC: HO.MRI 10:46
PROVIDERS: PCP Internal Medicine; Visit Provider Orthopaedic Surgery
DX: M25.311 Other instability, right shoulder (principal)
CPT/HCPCS: 73221

== ENCOUNTER 2025-01-06 11:52 | Outpatient (AMB) | payer OTHER, SELFPAY ==
[2025-01-06 11:55] VITALS: BP 112/60; PULSE 79; O2SAT 96; BMI 23.6
--- NOTE | 2025-01-06 11:55 | HO.NEPHOV ---
Vital Signs 01/06/25 11:55 Height 5 ft 9 in Weight 160 lb BMI 23.6 BP 112/60 Blood Pressure Location Rt brachial Position Sitting Pulse 79 Pulse Source Pulse Oximeter Pulse Oximetry (%) 96 Oxygen Delivery Method Room Air Intake Visit Reasons: 6 mon follow up/ Conf Passenger Service Supervisor Required: No Accompanied by: Self / Same As Patient Allergies lisinopril Allergy (Mild, Verified 01/06/25 11:59) Cough Penicillins Allergy (Mild, Verified 01/06/25 11:59) RASH linagliptin [Tradjenta] Adverse Reaction (Mild, Verified 01/06/25 11:59) diarrhea Medication List - Last Reconciled 01/06/25 by Timur Romo MD ascorbic acid (vitamin C) (Vitamin C) 500 mg PO BID 90 days aspirin 81 mg PO DAILY blood sugar diagnostic As directed blood sugar diagnostic ([facility] Ultra Test strips) As directed check bs BID blood sugar diagnostic As directed check blood sugar 2 times a day cholecalciferol (vitamin D3) 25 mcg PO DAILY cyclobenzaprine 10 mg PO BEDTIME PRN dulaglutide 1.5 mg (0.5 mL) subcut FR 30 days empagliflozin 25 mg PO DAILY finasteride (Proscar) 5 mg PO DAILY 90 days furosemide 20 mg PO DAILY 90 days glipizide ER 10 mg PO DAILY isosorbide mononitrate ER 30 mg PO DAILY lidocaine 5% 2 patches topical DAILY magnesium oxide 400 mg PO DAILY metoprolol tartrate 25 mg PO BID 90 days omeprazole 20 mg PO QAM potassium chloride ER 20 mEq PO DAILY rosuvastatin 40 mg PO DAILY simethicone (Gas Relief (simethicone)) 125 mg PO BID-QID PRN triamcinolone acetonide 0.5% 1 appl topical BID vitamin B complex (B Complex-Vitamin B12 tablet) 1 tab PO DAILY vitamin E (dl, acetate) 100 units PO DAILY [walking cane As directed] zinc acetate 25 mg PO DAILY HPI Comments Details: 77-year-old male with a history of CAD status post quadruple bypass, diabetes, hypertension, iron deficiency anemia, HLD, GERD, has been referred for CKD. Baseline serum creatinine has been around 1.2-1.4 mg/dL. After lowering Lasix 20mg QD and doing He has no edema. He has occasional lightheadedness. No urine symptoms. 07/08/24 ;C/o insomnia;Drinks coke in evening 10/18/24 No improvement in insomnia;Abscess in buttocks and waiting for surgery 01/06/25 c/o itching in back. [facility] Medical History Headache Iron deficiency anemia HTN (hypertension) Weight loss Acute bronchitis Sciatic nerve palsy, left Chest pain Burning chest pain Left shoulder pain Constipation Foul smelling urine BPH (benign prostatic hyperplasia) Fatty liver Renal calculi Adrenal adenoma GERD (gastroesophageal reflux disease) Hypercholesterolemia Coronary artery disease Overweight (BMI 25.0-29.9) Type 2 diabetes mellitus with hyperglycemia Surgical History Hx of hand surgery History of transurethral resection of prostate History of esophagogastroduodenoscopy (EGD) H/O colonoscopy Hx of heart artery stent 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 History of nephrolithiasis History of prostate surgery History of arthroscopy of left shoulder History of tonsillectomy Family History Father Diabetes Hypertension CVD (cardiovascular disease) Mother Diabetes Social History Household Members: Family Housing: House Are you a primary director critical care to a significant other at home: No Do you presently have visiting nurse or other home services: No Alcohol intake: never Patient Tobacco Use Status: Former Tobacco user Tobacco use type: Cigarette Cigarette Packs Per Day: 1.5 e-Cigarette/Vaping Use: Never Used Second Hand Smoke Exposure: Yes service: No Current occupational status: retired Cognitive needs: Yes (cane) Hearing needs: No Vision needs: Yes (perscription glasses) Physical Exam Vital Signs: Last Vital Signs Pulse 79 01/06/25 11:55 BP 112/60 01/06/25 11:55 Pulse Ox 96 01/06/25 11:55 Oxygen Delivery Method Room Air 01/06/25 11:55 BMI result Body Mass Index 23.6 Comfortable Neck supple no JVD. Lungs entry equal no rales. Heart S1-S2 heard no gallop or rub. Abdomen soft nontender. Neuro alert awake oriented. No asterixis. Extremities no edema. Results Reviewed Nephrology Results: No Data to Display Assessment & Plan Assessment & Plan (1) CKD (chronic kidney disease) stage 3, GFR 30-59 ml/min: Code(s): N18.30 - Chronic kidney disease, stage 3 unspecified Category: Medical (2) Diabetes mellitus with chronic kidney disease: Code(s): E11.22 - Type 2 diabetes mellitus with diabetic chronic kidney disease Category: Medical Plan 79-year-old man with stage III CKD in a setting of longstanding hypertension diabetes mellitus and coronary disease. He has no significant proteinuria. He probably has underlying hypertension nephrosclerosis. No evidence of any obstructive uropathy. Cr is stable I have encouraged him to stay on low-sodium diet He should watch for leg edema and if he has any shortness of breath or indication to increase the Lasix to 40 mg. Agree with using SGLT-2 inhibitors for renal protection. Decreased Metoprolol to 25 mg BID from TID due to low BP and currently BP is acceptable Trial of Hydroxyzine for itching Orders: Orders Basic Metabolic Panel Today N18.30 - Chronic kidney disease, stage 3 unspecified Basic Metabolic Panel 4 Months N18.30 - Chronic kidney disease, stage 3 unspecified Total Protein Urine Random Today N18.30 - Chronic kidney disease, stage 3 unspecified UA and rflx microscopic Today N18.30 - Chronic kidney disease, stage 3 unspecified Creatinine Urine Today N18.30 - Chronic kidney disease, stage 3 unspecified Complete Blood Count no Diff Today N18.30 - Chronic kidney disease, stage 3 unspecified Medications: New hydroxyzine HCl 10 mg PO BEDTIME PRN 10 tabs 0RF itching Coding Level of Care Code Est Pt Level 4 (87677) Diagnoses CKD (chronic kidney disease) stage 3, GFR 30-59 ml/min N18.30 Diabetes mellitus with chronic kidney disease E11.22
--- OUTSIDE RECORDS SUMMARY | 2025-01-06 13:04 | XMS_ITS | Patient Health Record ---
Author Organization [facility] Address [address] [place] [address] Care Team Providers Care Clerical Order Filler Name Role Phone Aaron Collazo MD Primary Care Provider Elbert Hanson [phone] ALLERGIES Allergen (clinical drug ingredient) Drug/Non Drug [...] reflux disease without esophagitis (K21.9) Active confirmed 514907990 Problem Encounter for screening for malignant neoplasm of colon (Z12.11) Active confirmed 286124807 Problem Encounter for screening for malignant neoplasm of rectum (Z12.12) Active confirmed Screening for malignant neoplasm of rectum (491703603) Problem Hx of adenomatous colonic polyps (Z86.010) Active confirmed 843794932 Problem Long-term use of aspirin therapy (Z79.82) Active confirmed 256854161 Problem Iron deficiency anemia (D50.9) Active confirmed Iron deficien cy anemia (56001036) Problem GERD (gastroesophageal reflux disease) (K21.9) Active confirmed Gastroesophagea l reflux disease (765300998) Problem Diverticulosis of colon (K57.30) Active confirmed Diverticulosi s of colon (017212690) Problem Gastritis (K29.70) Active confirmed Gas tritis (0882752) PLAN OF TREATMENT Future Test Test Name Order Date COLONOSCOPY 03/09/2019 UPPER GI ENDOSCOPY 06/05/2022 COLONOSCOPY 06/05/2022 Insurance Providers Payer Name Payer Address Payer Phone Subscriber Number Group Number Insured Name Patient Relationship to Insured Coverage Start Date Coverage End Date MEDICARE OF [place] [address] [place] [address] [phone] [id number] MAGDY KLEIN Self - patient is the insured MEDICAID OF [facility] [address] [place] [address] [id number] ERNIE MAGDY Self - patient is the insured MEDICAL (GENERAL) HISTORY Medical History History ICD Code 10/20/2008 colonoscopy--- ne gative except for diverticulosis and internal hemorrhoids Coronary artery disease--[address] Will--most recent was in approx 2007 NIDDM Hypertension History of kidney stones Denies [place],CVA,Lung disease,renal disease GERD--EGD with Dr. Bruce in [...]
== END 2025-01-06 12:08 | disposition home or self-care (01) ==
PROVIDERS: PCP Internal Medicine; Visit Provider Internal Medicine Hypertension Specialist
DX: E11.22 Type 2 diabetes mellitus with diabetic chronic kidney disease (principal); N18.30 Chronic kidney disease, stage 3 unspecified
CPT/HCPCS: 99214

== ENCOUNTER 2025-01-06 11:52 | Outpatient (REF) | payer OTHER, SELFPAY ==
[2025-01-06 12:58] LABS: Hematocrit 39.6 % (42.0-52.0); Hemoglobin 13.1 g/dl (14.0-18.0); Mean Corpuscular HGB Conc 33.1 g/dl (31.0-36.0); Mean Corpuscular Hemoglobin 27.9 pg (27.0-33.0); Mean Corpuscular Volume 84.3 fL (80.0-98.0); Mean Platelet Volume 10.5 fL (9.4-12.4); Platelet Count 161 X10*3/uL (160-400); Red Cell Distribution Width 13.3 % (11.0-16.0); White Blood Count 6.7 X10*3/uL (4.8-10.8)
[2025-01-06 13:08] LABS: Appearance Urine Clear; Color Urine Yellow; Glucose Urine UA >=1000 mg/dL (Negative); Leukocyte Esterase Urine Negative (Negative); Nitrite Urine Negative (Negative); Specific Gravity - Urine >= 1.030 (1.005-1.025); UMIC TRIGGER UA YES; Urine Blood Negative (Negative); Urine Ketones Negative (Negative); Urine Protein Negative (Neg-Trace)
[2025-01-06 13:13] LABS: Bacteria Urine None Seen (None Seen); Hyaline Casts Urine 0-2 /LPF (0-2); RBC Urine 0-2 /HPF (0-2); Squamous Epithelial Cell Urine 0-2 /HPF (0-2); WBC Urine 0-5 /HPF (0-5)
[2025-01-06 13:19] LABS: Anion Gap 11 (12-20); Blood Urea Nitrogen 18 mg/dL (9-16); Calcium 9.1 mg/dL (8.4-10.2); Carbon Dioxide 26 mmol/L (22-29); Chloride 108 mmol/L (96-108); Estimated Glomerular Filt Rate 54; Glucose Random 258 mg/dL (60-115); Potassium 4.1 mmol/L (3.3-5.1); Sodium 141 mmol/L (135-145)
[2025-01-06 13:44] LABS: Creatinine Urine 42.29 mg/dL; Total Protein Urine Random < 7 mg/dL (<12)
== END 2025-01-06 11:53 | disposition home or self-care (01) ==
LOC: HO.LAB 11:52
PROVIDERS: PCP Internal Medicine; Visit Provider Internal Medicine Hypertension Specialist
DX: N18.30 Chronic kidney disease, stage 3 unspecified (principal); E11.22 Type 2 diabetes mellitus with diabetic chronic kidney disease
CPT/HCPCS: 36415; 80048; 81001; 82570; 84156; 85027; 99212

== ENCOUNTER 2025-01-20 12:50 | Outpatient (AMB) | payer OTHER, SELFPAY ==
[2025-01-20 12:52] VITALS: BP 108/62; PULSE 82; BMI 23.7
--- NOTE | 2025-01-20 12:52 | A.OFFVIS_ITS ---
Vital Signs 01/20/25 12:52 Height 5 ft 9 in Weight 160 lb 7.944 oz BMI 23.7 BP 108/62 Blood Pressure Location Lt brachial Position Sitting Pulse 82 Pulse Source Pulse Oximeter Intake Visit Reasons: 6 mos followup Legal Investigator Required: No Allergies lisinopril Allergy (Mild, Verified 01/20/25 13:36) Cough Penicillins Allergy (Mild, Verified 01/20/25 13:36) RASH linagliptin [Tradjenta] Adverse Reaction (Mild, Verified 01/20/25 13:36) diarrhea Medication List - Last Reconciled 01/20/25 by GENIA House ascorbic acid (vitamin C) (Vitamin C) 500 mg PO BID 90 days aspirin 81 mg PO DAILY blood sugar diagnostic As directed blood sugar diagnostic ([facility] Ultra Test strips) As directed check bs BID blood sugar diagnostic As directed check blood sugar 2 times a day cholecalciferol (vitamin D3) 25 mcg PO DAILY cyclobenzaprine 10 mg PO BEDTIME PRN dulaglutide 1.5 mg (0.5 mL) subcut FR 30 days empagliflozin 25 mg PO DAILY finasteride (Proscar) 5 mg PO DAILY 90 days furosemide 20 mg PO DAILY 90 days glipizide ER 10 mg PO DAILY hydroxyzine HCl 10 mg PO BEDTIME PRN isosorbide mononitrate ER 30 mg PO DAILY lidocaine 5% 2 patches topical DAILY magnesium oxide 400 mg PO DAILY metoprolol tartrate 25 mg PO BID 90 days omeprazole 20 mg PO QAM potassium chloride ER 20 mEq PO DAILY rosuvastatin 40 mg PO DAILY triamcinolone acetonide 0.5% 1 appl topical BID vitamin B complex (B Complex-Vitamin B12 tablet) 1 tab PO DAILY vitamin E (dl, acetate) 100 units PO DAILY [walking cane As directed] zinc acetate 25 mg PO DAILY HPI HPI 6 mos followup: Details: Calderon is a 78-year-old male with past medical history of hyperlipidemia, diabetes, peripheral vascular disease, coronary artery disease with coronary stents followed by coronary artery bypass grafting 5 years ago who presents for follow-up. Today he reports that he has noticed some increased fatigue since his last visit in June. He has had prior to his coronary artery surgery he had chest discomfort and fatigue. He currently denies any chest discomfort at rest or with activity. He will get some reflux if he eats spicy peppers. He denies shortness of breath, palpitations, dizziness, presyncope, syncope, PND, orthopnea or edema. He has been having pain in his right shoulder and may need surgery in the near future. Compliant with all medications. [facility] Medical History Headache Iron deficiency anemia HTN (hypertension) Weight loss Acute bronchitis Sciatic nerve palsy, left Chest pain Burning chest pain Left shoulder pain Constipation Foul smelling urine BPH (benign prostatic hyperplasia) Fatty liver Renal calculi Adrenal adenoma GERD (gastroesophageal reflux disease) Hypercholesterolemia Coronary artery disease Overweight (BMI 25.0-29.9) Type 2 diabetes mellitus with hyperglycemia Surgical History Hx of hand surgery History of transurethral resection of prostate History of esophagogastroduodenoscopy (EGD) H/O colonoscopy Hx of heart artery stent 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 History of nephrolithiasis History of prostate surgery History of arthroscopy of left shoulder History of tonsillectomy Family History Father Diabetes Hypertension CVD (cardiovascular disease) Mother Diabetes Social History Household Members: Family Housing: House Are you a primary tire care manager to a significant other at home: No Do you presently have visiting nurse or other home services: No Alcohol intake: never Patient Tobacco Use Status: Former Tobacco user Tobacco use type: Cigarette Cigarette Packs Per Day: 1.5 e-Cigarette/Vaping Use: Never Used Second Hand Smoke Exposure: Yes service: No Current occupational status: retired Cognitive needs: Yes (cane) Hearing needs: No Vision needs: Yes (perscription glasses) Review of Systems Const All systems reviewed & are unremarkable except as noted in HPI and below Reports fatigue ENT Denies dizziness Card Denies chest pain, Denies chest pain at rest, Denies chest pain with activity, Denies rapid heart rate, Denies pedal edema, Denies edema, Denies leg edema, Denies lightheadedness, Denies palpitations, Denies dyspnea, Denies dyspnea on exertion and Denies orthopnea Resp Denies cough, Denies dyspnea and Denies dyspnea on exertion GI Denies hematochezia and Denies change in stool character Musc Denies abnormal gait, Reports limited range of motion (right shoulder, discomfort), Denies muscle cramps, Denies muscle weakness, Denies numbness, Denies radiating pain into limb, Denies stiffness and Denies tingling Neuro Denies abnormal gait, Denies dizziness, Denies numbness and Denies tingling Endo Reports fatigue and Denies palpitations Physical Exam Vital Signs: Last Vital Signs Pulse 82 01/20/25 12:52 BP 108/62 01/20/25 12:52 BMI result Body Mass Index 23.7 Const General: cooperative, healthy appearing, comfortable and no acute distress Orientation/consciousness: patient oriented x3 Neck Neck: Yes normal visual inspection and Yes no JVD Resp Effort & Inspection: normal respiratory effort Auscultation: clear to auscultation bilaterally, no rales, no rhonchi and no wheezes Cardio Rate: regular rate Rhythm: regular rhythm Heart sounds: S1 normal heart sound present, S2 normal heart sound present, no murmurs and no rubs Neuro General: patient oriented x3 Extrem General: Yes normal to inspection and No no pedal edema Psych Appearance: grossly normal Mental Status: mental status grossly normal Speech and movement: Normal speech and movement present Office Procedures EKG Details: Today, read by me, NSR, left axis, voltage criteria for LVH, rate 76, QTc 423ms [id number], Complete Assessment & Plan Assessment & Plan (1) Coronary artery disease: Comment: CABG August [address] Rhodes Code(s): I25.10 - Atherosclerotic heart disease of [place] coronary artery without angina pectoris Category: Medical Qualifiers: Associated angina: without angina Coronary Disease-Associated Artery/Lesion type: [place] artery [place] vs. transplanted heart: [place] heart Qualified Code(s): I25.10 - Atherosclerotic heart disease of [place] coronary artery without angina pectoris Plan: History of CAD with 4 vessel Coronary artery bypass grafting 2019. He had been following with Dr. Cabrera prior to his fpc then [facility] and changed to our office 1.5 year ago. Testing was done for atypical sounding discomfort, Nuclear stress test done 06/03/2023 showed normal myocardial perfusion imaging. An echocardiogram done 06/12/2023 showed EF 55-60%, with shayan onal wall motion abnormality consistent with CAD, basal inferior and basal inferior septum hypokinesis. Today he reports increasing fatigue. EKG shows sinus rhythm with no acute ST or T-wave abnormalities. Will check a an exercise nuclear stress test to evaluate for any ischemia with his increasing fatigue. Will have him continue aspirin indefinitely. Continue rosuvastatin 40 mg daily. Labs done 09/29/2024 showed LDL 52. Continue metoprolol, isosorbide. Signs and symptoms of angina reviewed. If stress test is normal will arrange Cardiology follow-up 6 months, sooner if needed. (2) Type 2 diabetes mellitus with hyperglycemia: Comment: [facility] exam Code(s): E11.65 - Type 2 diabetes mellitus with hyperglycemia Category: Medical Qualifiers: Diabetes mellitus residential insulin use: without terminologist use Qualified Code(s): E11.65 - Type 2 diabetes mellitus with hyperglycemia Plan: Hemoglobin A1c goal less than 7. Followed by his PCP. (3) Hypercholesterolemia: Code(s): E78.00 - Pure hypercholesterolemia, unspecified Category: Medical Plan: [place] LDL goal less than 70. Continue rosuvastatin 40 mg daily.. Plan Time spent on chart review, documentation, interview and assessment Orders: Orders CA stress test Today E11.65 - Type 2 diabetes mellitus with hyperglycemia, I25.10 - Atherosclerotic heart disease of [place] coronary artery without angina pectoris, R53.83 - Other fatigue NM cardiolite stress test Today I25.10 - Atherosclerotic heart disease of [place] coronary artery without angina pectoris, R53.83 - Other fatigue Coding Level of Care Code Est Pt Level 4 (51739) Complex EM visit Add On G2211 Diagnoses Coronary artery disease involving [place] coronary artery of [place] heart without angina pectoris I25.10 Associated angina: without angina Coronary Disease-Associated Artery/Lesion type: [place] artery [place] vs. transplanted heart: [place] heart Type 2 diabetes mellitus with hyperglycemia, without long-term current use of insulin E11.65 Diabetes mellitus terminologist insulin use: without terminologist use Hypercholesterolemia E78.00 CPT Codes EKG - CPT: 30194-[id number], Complete ([id number]) Time Spent (min) 32
--- OUTSIDE RECORDS SUMMARY | 2025-01-20 15:30 | XMS_ITS | Patient Health Record ---
Author Organization [facility] Address [address] [place] [address] Care Team Providers Care Carbonizer Name Role Phone Aaron Collazo MD Primary Care Provider Elbert Hanson [phone] Allergies Allergen (clinical drug ingredient) Drug/Non Drug Allergy documented on EMR Reaction Allergy Type Onset Date Status Penicillin Unknown Drug Allergy Active Reason For Referral No Information Medications Medication SIG (Take, Route, Frequency, Duration) Notes [...] 1 tablet Orally Once a day Active Immunizations Vaccine Route Administration Date Status Comme nts Flu vaccine no Preserv 3 and > Unknown 08/22/2015 Admin istered Influenza Unknown 08/17/2018 Administered Influenza Unknown 10/09/2021 Administered Influenza Unknown 08/17/2022 Administered Problems Problem Type SNOMED Code ICD Code Onset Dates Problem Status W/U Status Risk Notes Problem 430975279 Encounter for screening for malignant neoplasm of colon (Z12.11) Active confirmed Problem Screening for malignant neoplasm of rectum (140452262) Encounter for screening for malignant neoplasm of rectum (Z12.12) Active confirmed Problem Iron deficiency anemia (74777150) Iron deficiency anemia (D50.9) Active confirmed Problem 535829650 Gastroesophageal reflux disease without esophagitis (K21.9) Active confirmed Problem 888670271 Long-term use of aspirin therapy (Z79.82) Active confirmed Problem Gastritis (8031601) Gastritis (K29.70) Active c onfirmed Problem Gastroesophageal reflux disease (637820281) GERD (gastroesophageal reflux disease) (K21.9) Active confirmed Problem 089261491 Hx of adenomatou s colonic polyps (Z86.010) Active confirmed Problem Diverticulosis of colon (260264880) Diverticulosis of colon (K57.30) Active confirmed Plan Of Treatment Future Test Test Name Order Date COLONOSCOPY 03/09/2019 UPPER GI ENDOSCOPY 06/05/2022 COLONOSCOPY 06/05/2022 Insurance Providers Payer Name Payer Address Payer Phone Subscriber Number Group Number Insured Name Patient Relationship to Insured Coverage Start Date Coverage End Date MEDICARE OF [place] [address] [place] [address] [id number] MAGDY KLEIN Self - patient is the insured MEDICAID OF [facility] [address] [place] [address] [id number] MAGDY KLEIN Self - patient is the insured Medical (General) History Medical History History ICD Code 10/20/2008 colonoscopy--- ne gative except for diverticulosis and internal hemorrhoids Coronary artery disease--[address] Will--most recent was in approx 2007 NIDDM Hypertension History of kidney stones Denies [place],CVA,Lung disease,renal disease GERD--EGD with Dr. Bruce in [...]
== END 2025-01-20 13:32 | disposition home or self-care (01) ==
PROVIDERS: PCP Internal Medicine; Visit Provider Nurse Practitioner Family
DX: I25.10 Atherosclerotic heart disease of native coronary artery without angina pectoris (principal); E11.65 Type 2 diabetes mellitus with hyperglycemia; E78.00 Pure hypercholesterolemia, unspecified
CPT/HCPCS: 93010; 99214; G2211

== ENCOUNTER → 2025-01-20 12:50 | Outpatient (BNVA) | payer OTHER, SELFPAY | PROVIDERS: PCP Internal Medicine; Visit Provider Nurse Practitioner Family | DX: E11.65 Type 2 diabetes mellitus with hyperglycemia (principal); E11.51 Type 2 diabetes mellitus with diabetic peripheral angiopathy without gangrene; E78.00 Pure hypercholesterolemia, unspecified; I12.9 Hypertensive chronic kidney disease with stage 1 through stage 4 chronic kidney disease, or unspecified chronic kidney disease; N18.30 Chronic kidney disease, stage 3 unspecified; M25.311 Other instability, right shoulder; L30.9 Dermatitis, unspecified; I25.10 Atherosclerotic heart disease of native coronary artery without angina pectoris | CPT/HCPCS: 93005; 99212 ==

== ENCOUNTER 2025-01-20 13:30 | Outpatient (AMB) | payer OTHER, SELFPAY ==
[2025-01-20 13:35] VITALS: BP 112/66; PULSE 78; RESP 20; TEMP 36.2; O2SAT 94; BMI 23.5
--- NOTE | 2025-01-20 13:35 | MHC.PC.OV ---
Vital Signs 01/20/25 13:35 Height 5 ft 9 in Weight 159 lb 6 oz BMI 23.5 BP 112/66 Blood Pressure Location Lt brachial Position Sitting Respiration 20 Pulse 78 Pulse Source Pulse Oximeter Temp 97.1 F Temp Source Temporal Artery Scan Pulse Oximetry (%) 94 Oxygen Delivery Method Room Air Intake Visit Reasons: DM/ referral to derm Oil Separator Required: No Accompanied by: Self / Same As Patient Allergies lisinopril Allergy (Mild, Verified 01/20/25 13:36) Cough Penicillins Allergy (Mild, Verified 01/20/25 13:36) RASH linagliptin [Tradjenta] Adverse Reaction (Mild, Verified 01/20/25 13:36) diarrhea Tobacco use date assessed: 01/20/25 Fall risk assessment: No Falls in past year Last assessed Fall Risk: 01/20/25 Dental Screening Dental Screen Date: 12/28/24 HPI DM/ referral to derm HPI Details 79-year-old male with a history of uncontrolled diabetes mellitus hypercholesterolemia GERD generalized anxiety disorder BPH coronary artery disease chronic kidney disease hypertension coming in for follow-up. Last seen in 12/28/2024 patient has rotator cuff insufficiency of the right shoulder and MRI was requested. Review of the notes has seen Cardiology in January 20 nuclear stress test in 06/05/2023 was normal echocardiogram EF of 55-60% on cholesterol medication metoprolol isosorbide patient also sees the kidney doctor seen in January 06 diagnosis of chronic kidney disease stage 3 creatinine stable patient was advised an increase in Lasix as well as continuing SGLT2 patient was advised to decrease the metoprolol to 25 mg twice a day only.. Patient had an MRI of the right shoulder in January 05 Large full-thickness retracted tears of the supraspinatus and infraspinatus tendons with tendon retracted to the superior margin of the humeral head. Tear at approximately 2 x 3.5 cm in length and width. Severe tendinosis and articular surface partial tear of the subscapularis tendon. Bursal surface fibers intact. Atrophic subscapularis muscle. No significant volume loss or fatty infiltration of the remaining cuff muscles. Severe tendinosis and high-grade partial tear suggested of the intra-articular biceps with interstitial tear component of the extra-articular biceps. Mild medial subluxation of the tendon. Reactive marrow edema in the anterior humeral head. Degenerative tear of the posterior labrum with small paralabral cyst. Small joint effusion freely extending to the subdeltoid subacromial bursa. complains of rash on the lower back which started on papulovesicular scabbed now promptoing consult. [facility] Medical History Headache Iron deficiency anemia HTN (hypertension) Weight loss Acute bronchitis Sciatic nerve palsy, left Chest pain Burning chest pain Left shoulder pain Constipation Foul smelling urine BPH (benign prostatic hyperplasia) Fatty liver Renal calculi Adrenal adenoma GERD (gastroesophageal reflux disease) Hypercholesterolemia Coronary artery disease Overweight (BMI 25.0-29.9) Type 2 diabetes mellitus with hyperglycemia Surgical History Hx of hand surgery History of transurethral resection of prostate History of esophagogastroduodenoscopy (EGD) H/O colonoscopy Hx of heart artery stent 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 History of nephrolithiasis History of prostate surgery History of arthroscopy of left shoulder History of tonsillectomy Family History Father Diabetes Hypertension CVD (cardiovascular disease) Mother Diabetes Social History Household Members: Family Housing: House Are you a primary early breastfeeding care specialist to a significant other at home: No Do you presently have visiting nurse or other home services: No Alcohol intake: never Patient Tobacco Use Status: Former Tobacco user Tobacco use type: Cigarette Cigarette Packs Per Day: 1.5 e-Cigarette/Vaping Use: Never Used Second Hand Smoke Exposure: Yes service: No Current occupational status: retired Cognitive needs: Yes (cane) Hearing needs: No Vision needs: Yes (perscription glasses) Questionnaire Thrive Questionnaire Date Thrive assessed: 12/28/24 TRINH-7 AMB Questionnaire TRINH-7 Date TRINH - 7 assessed: 12/28/24 Source: Developed by Drs. Elbert Boogie, Esther Hilliard, Anurag Gupta and colleagues, with an educational elfego from [employer] MD. Physical exam (Primary Care) Vital Signs: Last Vital Signs Temp 97.1 F 01/20/25 13:35 Oxygen Delivery Method Room Air 01/20/25 13:35 BMI result Body Mass Index 23.5 Tobacco/Smoking Status: Tobacco use Status Tobacco use date assessed 01/20/25 01/20/25 13:38 Patient Tobacco Use Status Former Tobacco user 01/20/25 13:38 Tobacco use type Cigarette 01/20/25 13:38 e-Cigarette/Vaping Use Never Used 01/20/25 13:38 Thrive Assessment: Date of Thrive Assessment Date Thrive assessed 12/28/24 01/20/25 13:38 Const General: alert; No acute distress Eyes Conjunctivae: conjunctivae normal Resp Auscultation: clear to auscultation bilaterally Cardio Rate: regular rate Rhythm: regular rhythm GI Inspection: Yes normal to inspection Back/Spine/Pelvis Back/spine/pelvis image: 1. multilple 5mm-1 cm scabbed rash in the lower back with scab and mild erythematous base Extrem General: Yes normal to inspection and No edema Coding Level of Care Code Est Pt Level 4 (49386) Diagnoses Rotator cuff insufficiency of right shoulder M25.311 Type 2 diabetes mellitus with hyperglycemia, without long-term current use of insulin E11.65 Diabetes mellitus mcc insulin use: without long term care social worker use Eczematous dermatitis L30.9 Assessment & Plan Assessment & Plan (1) Rotator cuff insufficiency of right shoulder: Code(s): M25.311 - Other instability, right shoulder Category: Medical Plan: will be seeing Dr. Adalgisa Godfrey 02/24 discussed about the results of the MRI showing full-thickness tear (2) Type 2 diabetes mellitus with hyperglycemia: Comment: [facility] exam Code(s): E11.65 - Type 2 diabetes mellitus with hyperglycemia Category: Medical Qualifiers: Diabetes mellitus mcc insulin use: without long term care social worker use Qualified Code(s): E11.65 - Type 2 diabetes mellitus with hyperglycemia Plan: Decrease the amount of carbohydrate intake, pasta, bread, rice and potatoes are all sugar and that is aside from all the sweet stuff, remember that fruits are good but they are Sweet also. Hemoglobin A1c goal of less than 7.0. Patient on Trulicity Jardiance glipizide.. Discussed about hypoglycemia that we need to take out the glipizide. Continue to monitor blood sugars discussed the need to get the sugars under better control. (3) Eczematous dermatitis: Code(s): L30.9 - Dermatitis, unspecified Category: Medical Plan: dermatology referral done. Discussed with the patient that I doubt this is shingles. But will do referral to dermatology. Orders: Orders Basic Metabolic Panel 6 Months N18.30 - Chronic kidney disease, stage 3 unspecified Referrals Dermatology Referral L30.9 - Dermatitis, unspecified
== END 2025-01-20 14:24 | disposition home or self-care (01) ==
PROVIDERS: PCP Internal Medicine; Visit Provider Internal Medicine
DX: M25.311 Other instability, right shoulder (principal); E11.65 Type 2 diabetes mellitus with hyperglycemia; L30.9 Dermatitis, unspecified

== ENCOUNTER 2025-02-11 14:59 | Outpatient (AMB) | payer OTHER, SELFPAY ==
[2025-02-11 15:17] VITALS: BP 106/60; PULSE 83; TEMP 36.2; O2SAT 95; BMI 23.7
--- NOTE | 2025-02-11 15:17 | MHC.PC.OV ---
Vital Signs 02/11/25 15:17 Height 5 ft 9 in Weight 160 lb 8 oz BMI 23.7 BP 106/60 Blood Pressure Location Lt brachial Position Sitting Pulse 83 Pulse Source Pulse Oximeter Temp 97.1 F Temp Source Temporal Artery Scan Pulse Oximetry (%) 95 Oxygen Delivery Method Room Air Intake Visit Reasons: cyst on back Cherry Sorter Required: No Accompanied by: Self / Same As Patient Allergies lisinopril Allergy (Mild, Verified 02/11/25 15:19) Cough Penicillins Allergy (Mild, Verified 02/11/25 15:19) RASH linagliptin [Tradjenta] Adverse Reaction (Mild, Verified 02/11/25 15:19) diarrhea Tobacco use date assessed: 01/20/25 Fall risk assessment: No Falls in past year Last assessed Fall Risk: 02/11/25 Dental Screening Dental Screen Date: 12/28/24 [facility] Medical History Headache Iron deficiency anemia HTN (hypertension) Weight loss Acute bronchitis Sciatic nerve palsy, left Chest pain Burning chest pain Left shoulder pain Constipation Foul smelling urine BPH (benign prostatic hyperplasia) Fatty liver Renal calculi Adrenal adenoma GERD (gastroesophageal reflux disease) Hypercholesterolemia Coronary artery disease Overweight (BMI 25.0-29.9) Type 2 diabetes mellitus with hyperglycemia Surgical History Hx of hand surgery History of transurethral resection of prostate History of esophagogastroduodenoscopy (EGD) H/O colonoscopy Hx of heart artery stent 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 History of nephrolithiasis History of prostate surgery History of arthroscopy of left shoulder History of tonsillectomy Family History Father Diabetes Hypertension CVD (cardiovascular disease) Mother Diabetes Social History Household Members: Family Housing: House Are you a primary daycare worker to a significant other at home: No Do you presently have visiting nurse or other home services: No Alcohol intake: never Patient Tobacco Use Status: Former Tobacco user Tobacco use type: Cigarette Cigarette Packs Per Day: 1.5 e-Cigarette/Vaping Use: Never Used Second Hand Smoke Exposure: Yes service: No Current occupational status: retired Cognitive needs: Yes (cane) Hearing needs: No Vision needs: Yes (perscription glasses) Questionnaire Thrive Questionnaire Date Thrive assessed: 12/28/24 TRINH-7 AMB Questionnaire TRINH-7 Date TRINH - 7 assessed: 12/28/24 Source: Developed by Drs. Elbert Boogie, Esther Hilliard, Anurag Gupta and colleagues, with an educational elfego from [employer]. Physical exam (Primary Care) Vital Signs: Last Vital Signs Temp 97.1 F 02/11/25 15:17 Pulse 83 02/11/25 15:17 BP 106/60 02/11/25 15:17 Pulse Ox 95 02/11/25 15:17 Oxygen Delivery Method Room Air 02/11/25 15:17 BMI result Body Mass Index 23.7 Tobacco/Smoking Status: Tobacco use Status Tobacco use date assessed 01/20/25 02/11/25 15:21 Patient Tobacco Use Status Former Tobacco user 02/11/25 15:21 Tobacco use type Cigarette 02/11/25 15:21 e-Cigarette/Vaping Use Never Used 02/11/25 15:21 Thrive Assessment: Date of Thrive Assessment Date Thrive assessed 12/28/24 02/11/25 15:21 Const General: alert; No acute distress Eyes Conjunctivae: conjunctivae normal Resp Auscultation: clear to auscultation bilaterally Cardio Rate: regular rate Rhythm: regular rhythm GI Inspection: Yes normal to inspection Skin Full body images: 1. Bilateral multiple mildly erythematous rash with some scaliness and the size of the redness are multiple areas of 5 mm to 1 cm. Extrem General: Yes normal to inspection and No edema Coding Level of Care Code Est Pt Level 3 (69727) Diagnoses Type 2 diabetes mellitus with hyperglycemia, without long-term current use of insulin E11.65 Diabetes mellitus terminal superintendent insulin use: without terminal superintendent use Coronary artery disease involving [place] coronary artery of [place] heart without angina pectoris I25.10 Associated angina: without angina Coronary Disease-Associated Artery/Lesion type: [place] artery [place] vs. transplanted heart: [place] heart Eczematous dermatitis L30.9 Assessment & Plan Assessment & Plan (1) Type 2 diabetes mellitus with hyperglycemia: Comment: [facility] Eye exam Code(s): E11.65 - Type 2 diabetes mellitus with hyperglycemia Category: Medical Qualifiers: Diabetes mellitus intermediate insulin use: without intermediate use Qualified Code(s): E11.65 - Type 2 diabetes mellitus with hyperglycemia Plan: Decrease the amount of carbohydrate intake, pasta, bread, rice and potatoes are all sugar and that is aside from all the sweet stuff, remember that fruits are good but they are Sweet also. (2) Coronary artery disease: Comment: CABG August [address] Rhodes Code(s): I25.10 - Atherosclerotic heart disease of [place] coronary artery without angina pectoris Category: Medical Qualifiers: Associated angina: without angina Coronary Disease-Associated Artery/Lesion type: [place] artery [place] vs. transplanted heart: [place] heart Qualified Code(s): I25.10 - Atherosclerotic heart disease of [place] coronary artery without angina pectoris Plan: Control the cholesterol, weight, blood pressure, diabetes (3) Eczematous dermatitis: Comment: lower back Code(s): L30.9 - Dermatitis, unspecified Category: Medical Plan: Patient was advised to get a steroid cream twice a day for 1 week. Will get a different dermatology Plan History of Present Illness The patient is an 79-year-old male presenting with a follow-up consultation for a dermatological condition and ongoing management of chronic conditions. He reports the presence of a mildly erythematous rash with scaliness, primarily affecting the lower back, characterized by multiple spots ranging in size from 5 mm to 1 cm. The rash initially appeared months ago, fluctuates in severity, and is less intense at present, although he anticipates a recurrence in the future. Aveeno cream has been applied for relief with minimal effect, whereas prescribed triamcinolone cream has been used sparingly. Additionally, his medical history is relevant for controlled diabetes mellitus, hypercholesterolemia, GERD, anxiety disorder, BPH, coronary artery disease, chronic kidney disease, and hypertension. Recent tests show stable anemia with a hemoglobin level of 13.1 g/dL and previous blood sugar levels of 258 mg/dL. Last evaluated on January 20, 2025, his renal function and electrolytes were stable. The patient is seeking a timely dermatological consultation with a preference for a location closer to his residence, along with guidance on steroid cream application. Health Maintenance - Blood glucose monitoring with prior levels documented at 258 mg/dL - Recent hemoglobin levels at 13.1 g/dL for anemia monitoring - Regular follow-up appointments for management of diabetes, hypertension, coronary artery disease, and chronic kidney disease Social History Review of Systems - Dermatologic: Reports mildly erythematous rash with scaliness located on the lower back Physical Exam Results - Labs: Hemoglobin 13.1 g/dL, Blood glucose level reported at 258 mg/dL in December Plan For this visit, I provided guidance on managing the patient's dermatological rash by recommending the application of triamcinolone cream twice daily for one week, as this treatment previously showed effectiveness. I have adjusted the dermatology referral to a closer location, [place], to obtain a more convenient and expedited dermatology consultation. Ongoing management of diabetes and other chronic conditions will continue, with scheduled follow-up for regular monitoring of blood glucose, renal function, and anemia. The chronic conditions addressed, including hypercholesterolemia, GERD, anxiety disorder, BPH, coronary artery disease, and hypertension, remain stable under current treatment protocols. Patient was informed and verbally consented to the use of an ambient scribe for clinic note documentation during this visit. Discussion Notes I discussed with the patient the management options for his chronic and acute conditions, focusing particularly on the dermatological condition. The benefits and necessity of applying triamcinolone cream were emphasized, with instructions to use it twice daily for a week to alleviate the rash symptoms. I informed the patient about the referral adjustment to [facility] in [place] to better align with his schedule and location preference. I reassured the patient regarding the stability of his chronic disorders, including recent lab results, and maintained the importance of regular follow-up for effective management, particularly concerning his blood glucose levels and anemia. Patient Instructions - Apply triamcinolone cream to the affected area twice a day for one week. - Attend the dermatology appointment when scheduled with [facility] in [place]. - Maintain regular follow-up appointments for ongoing management of chronic conditions. - Monitor blood glucose levels as directed and report any significant changes. - Be attentive to any worsening of the rash or new symptoms and seek medical attention if needed. Orders: Referrals Dermatology Referral L30.9 - Dermatitis, unspecified Medications: Refilled triamcinolone acetonide 0.5% 1 appl topical BID 30 grams 0RF L25.9 - Unspecified contact dermatitis, unspecified cause
== END 2025-02-11 15:43 | disposition home or self-care (01) ==
LOC: HO.HMCH 15:00
PROVIDERS: PCP Internal Medicine; Visit Provider Internal Medicine
DX: E11.65 Type 2 diabetes mellitus with hyperglycemia (principal); I25.10 Atherosclerotic heart disease of native coronary artery without angina pectoris; L30.9 Dermatitis, unspecified

== ENCOUNTER → 2025-02-11 14:59 | Outpatient (BNVA) | payer OTHER, SELFPAY | PROVIDERS: PCP Internal Medicine; Visit Provider Internal Medicine | DX: I25.10 Atherosclerotic heart disease of native coronary artery without angina pectoris (principal); E11.65 Type 2 diabetes mellitus with hyperglycemia; L30.9 Dermatitis, unspecified | CPT/HCPCS: 99212 ==

== ENCOUNTER 2025-02-22 10:12 | Outpatient (AMB) | payer OTHER, SELFPAY ==
--- NOTE | 2025-02-22 10:19 | MHC.PC.OV ---
Vital Signs 02/22/25 10:21 Height 5 ft 9 in Weight 158 lb 8 oz BMI 23.4 BP 130/60 Blood Pressure Location Lt brachial Position Sitting Pulse 77 Pulse Source Pulse Oximeter Temp 97.3 F Temp Source Temporal Artery Scan Pulse Oximetry (%) 97 Oxygen Delivery Method Room Air Intake Visit Reasons: 1mth f/u Intake Note: Patient is here to follow up on DM, CKD. Marble Installer Supervisor Required: No Sewing Techniques Demonstrator: Not Required per policy Accompanied by: Self / Same As Patient Allergies lisinopril Allergy (Mild, Verified 02/22/25 10:21) Cough Penicillins Allergy (Mild, Verified 02/22/25 10:21) RASH linagliptin [Tradjenta] Adverse Reaction (Mild, Verified 02/22/25 10:21) diarrhea Medication List - Last Reconciled 02/22/25 by Margaret Lucio PA-C ascorbic acid (vitamin C) (Vitamin C) 500 mg PO BID 90 days aspirin 81 mg PO DAILY blood sugar diagnostic As directed blood sugar diagnostic (Sanitors Ultra Test strips) As directed check bs BID blood sugar diagnostic As directed check blood sugar 2 times a day cholecalciferol (vitamin D3) 25 mcg PO DAILY cyclobenzaprine 10 mg PO BEDTIME PRN dulaglutide 1.5 mg (0.5 mL) subcut FR 30 days empagliflozin 25 mg PO DAILY finasteride (Proscar) 5 mg PO DAILY 90 days furosemide 20 mg PO DAILY 90 days glipizide ER 10 mg PO DAILY hydroxyzine HCl 10 mg PO BEDTIME PRN isosorbide mononitrate ER 30 mg PO DAILY lidocaine 5% 2 patches topical DAILY magnesium oxide 400 mg PO DAILY metoprolol tartrate 25 mg PO BID 90 days omeprazole 20 mg PO QAM potassium chloride ER 20 mEq PO DAILY rosuvastatin 40 mg PO DAILY triamcinolone acetonide 0.5% 1 appl topical BID vitamin B complex (B Complex-Vitamin B12 tablet) 1 tab PO DAILY vitamin E (dl, acetate) 100 units PO DAILY [walking cane As directed] zinc acetate 25 mg PO DAILY Tobacco use date assessed: 02/22/25 Fall risk assessment: No Falls in past year Last assessed Fall Risk: 02/22/25 Dental Screening Dental Screen Date: 12/28/24 HPI 1mth f/u HPI Details 79-year-old male with past medical history of diabetes mellitus, hypercholesterolemia, GERD, diabetic neuropathy, generalized anxiety disorder, BPH, hypertension, peripheral vascular disease, coronary artery disease and renal insufficiency last seen 01/[address] Collazo coming in for 1 month follow up. Presenting with a rash on the lower back and diabetes mellitus type 2 management. The rash has developed into bumps and has shown improvement with topical treatment. The itching and pain has resolved since the use of the topical treatment. He is working to schedule an appointment with Dermatology. Diabetes mellitus type 2 is being monitored, with the patient's Hemoglobin A1c currently at 8.4%, reflecting a slight reduction from previous levels. Concerns regarding carbohydrate intake, especially bread, were identified as a potential factor in glycemic control, despite regular exercise. [facility] Medical History Headache Iron deficiency anemia HTN (hypertension) Weight loss Acute bronchitis Sciatic nerve palsy, left Chest pain Burning chest pain Left shoulder pain Constipation Foul smelling urine BPH (benign prostatic hyperplasia) Fatty liver Renal calculi Adrenal adenoma GERD (gastroesophageal reflux disease) Hypercholesterolemia Coronary artery disease Overweight (BMI 25.0-29.9) Type 2 diabetes mellitus with hyperglycemia Surgical History Hx of hand surgery History of transurethral resection of prostate History of esophagogastroduodenoscopy (EGD) H/O colonoscopy Hx of heart artery stent 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 History of nephrolithiasis History of prostate surgery History of arthroscopy of left shoulder History of tonsillectomy Family History Father Diabetes Hypertension CVD (cardiovascular disease) Mother Diabetes Social History Household Members: Family Housing: House Are you a primary healthcare manager to a significant other at home: No Do you presently have visiting nurse or other home services: No Alcohol intake: never Patient Tobacco Use Status: Former Tobacco user Tobacco use type: Cigarette Cigarette Packs Per Day: 1.5 e-Cigarette/Vaping Use: Never Used Second Hand Smoke Exposure: Yes service: No Current occupational status: retired Cognitive needs: Yes (cane) Hearing needs: No Vision needs: Yes (perscription glasses) Questionnaire Thrive Questionnaire Date Thrive assessed: 12/28/24 TRINH-7 AMB Questionnaire TRINH-7 Date TRINH - 7 assessed: 12/28/24 Source: Developed by Drs. Elbert Boogie, Esther Hilliard, Anurag Gupta and colleagues, with an educational elfego from [employer]. Review of Systems Const Denies body aches, Denies chills and Denies fever(s) Eyes Reports no additional complaints ENT Denies dizziness Card Denies chest pain, Denies lightheadedness and Denies dyspnea Resp Denies dyspnea GI Reports no additional complaints Reports no additional complaints Musc Reports no additional complaints and Denies abnormal gait Skin/Breast Reports system reviewed and no additional complaints, except as documented Neuro Denies abnormal gait and Denies dizziness Psych Reports no additional complaints Physical exam (Primary Care) Vital Signs: Last Vital Signs Temp 97.3 F 02/22/25 10:21 Pulse 77 02/22/25 10:21 BP 130/60 02/22/25 10:21 Pulse Ox 97 02/22/25 10:21 Oxygen Delivery Method Room Air 02/22/25 10:21 BMI result Body Mass Index 23.4 Tobacco/Smoking Status: Tobacco use Status Tobacco use date assessed 02/22/25 02/22/25 10:27 Patient Tobacco Use Status Former Tobacco user 02/22/25 10:20 Tobacco use type Cigarette 02/22/25 10:20 e-Cigarette/Vaping Use Never Used 02/22/25 10:20 Thrive Assessment: Date of Thrive Assessment Date Thrive assessed 12/28/24 02/22/25 10:20 Const General: cooperative, healthy appearing, comfortable and no acute distress Orientation/consciousness: patient oriented x3 HENMT Head: Yes normocephalic Ears: hearing grossly normal bilaterally General nose exam: Normal external nose present Eyes General: appearance normal, both eyes and all related structures Conjunctivae: conjunctivae normal Neck Neck: Yes full ROM and Yes no lymphadenopathy Resp Effort & Inspection: normal respiratory effort Auscultation: clear to auscultation bilaterally, no crackles, no rales, no rhonchi and no wheezes Cardio Rate: regular rate Rhythm: regular rhythm Skin General skin exam: no rashes or lesions noted Full body images: 1. Scattered flat areas of hyperpigmentation without overlying erythema Neuro General: patient oriented x3 Gait exam (Neuro): Normal gait present Extrem General: Yes normal to inspection, Yes full ROM and No edema Psych Affect: normal affect Attitude: cooperative Insight: Good insight present (Psych) Judgement: Good judgement present (Psych) Results AMB Hemoglobin A1c AMB Hemoglobin A1c 8.4 % Last Edit by TYSON Etienne on 02/22/25 10:34 Coding Level of Care Code Est Pt Level 4 (97842) Diagnoses HTN (hypertension) I10 Diabetes mellitus with chronic kidney disease E11.22 Coronary artery disease involving [place] coronary artery of [place] heart without angina pectoris I25.10 Coronary Disease-Associated Artery/Lesion type: [place] artery [place] vs. transplanted heart: [place] heart Associated angina: without angina Gastroesophageal reflux disease without esophagitis K21.9 Esophagitis presence: without esophagitis Hypercholesterolemia E78.00 Overweight (BMI 25.0-29.9) E66.3 Eczematous dermatitis L30.9 Assessment & Plan Assessment & Plan (1) HTN (hypertension): Code(s): I10 - Essential (primary) hypertension Category: Medical Plan: Continue on current blood pressure medication. Avoid salt intake and encourage healthy diet and regular exercise. (2) Diabetes mellitus with chronic kidney disease: Code(s): E11.22 - Type 2 diabetes mellitus with diabetic chronic kidney disease Category: Medical Plan: Decrease the amount of carbohydrates such as pasta, bread, rice, and potatoes and limit the amount of sweets. Although fruits are generally healthy they should be eaten in moderation as they are still high in sugar. Hemoglobin A1c goal of less than 7%. A1c in the clinic today 8.4% presently on glipizide 10 mg daily, empagliflozin 25 mg daily, dulaglutide 1.5 mg weekly. Plan to increase Trulicity to 3 mg weekly and follow up at next visit. (3) Coronary artery disease: Comment: CABG August [address] Rhodes Code(s): I25.10 - Atherosclerotic heart disease of [place] coronary artery without angina pectoris Category: Medical Qualifiers: Coronary Disease-Associated Artery/Lesion type: [place] artery [place] vs. transplanted heart: [place] heart Associated angina: without angina Qualified Code(s): I25.10 - Atherosclerotic heart disease of [place] coronary artery without angina pectoris Plan: Advised good control of blood pressure, cholesterol and diabetes mellitus patient is currently on aspirin as well. Blood sugars not well controlled plan to adjust medications at today's visit. (4) GERD (gastroesophageal reflux disease): Code(s): K21.9 - Gastro-esophageal reflux disease without esophagitis Category: Medical Qualifiers: Esophagitis presence: without esophagitis Qualified Code(s): K21.9 - Gastro-esophageal reflux disease without esophagitis Plan: Avoid trigger foods such as citrus, tomato products, soda, caffeine, spicy foods and other foods that may be irritating to your stomach. Avoid laying flat 3-4 hours after eating and elevate the head of the bed 30 degrees to prevent acid from moving into the esophagus. Continue on omeprazole (5) Hypercholesterolemia: Code(s): E78.00 - Pure hypercholesterolemia, unspecified Category: Medical Plan: Avoid foods that are high in cholesterol such as red meat, fried foods, eggs and baked goods. Triglyceride goal of less than 150 and LDL goal of less than 70. Continue on rosuvastatin 40 (6) Overweight (BMI 25.0-29.9): Code(s): E66.3 - Overweight Category: Medical Plan: Healthy diet and regular exercise is encouraged. (7) Eczematous dermatitis: Comment: lower back Code(s): L30.9 - Dermatitis, unspecified Category: Medical Plan: Dermatitis appears to be resolving with the use of topical steroid. Patient is still seeking evaluation through Dermatology and working on establishing care. Plan This note was constructed using voice recognition software. While every effort has been made to ensure accuracy and photoengraving etcher, still areas may have been included sometimes these areas may affect the content or meeting of the given symptoms. Total time spent caring for the patient today was 20 minutes. This includes time spent before the visit reviewing the chart, time spent during the visit, and time spent after the visit and documentation. Patient was informed and verbally consented to the use of an ambient scribe for clinic note documentation during this visit. Orders: Orders AMB Hemoglobin A1c Today E11.22 - Type 2 diabetes mellitus with diabetic chronic kidney disease Lipid Panel Today E78.00 - Pure hypercholesterolemia, unspecified
[2025-02-22 10:21] VITALS: BP 130/60; PULSE 77; TEMP 36.3; O2SAT 97; BMI 23.4
--- OUTSIDE RECORDS SUMMARY | 2025-02-22 11:57 | XMS_ITS | Patient Health Record ---
Author Organization [facility] Address [address] [place] [address] Care Team Providers Care Metal Template Maker Name Role Phone Aaron Collazo MD Primary Care Provider Elbert Hanson [phone] Allergies Allergen (clinical drug ingredient) Drug/Non Drug [...] Problem Status W/U Status Risk Notes Problem 056636114 Encounter for screening for malignant neoplasm of colon (Z12.11) Active confirmed Problem Screening for malignant neoplasm of rectum (267473791) Encounter for screening for malignant neoplasm of rectum (Z12.12) Active confirmed Problem Iron deficiency anemia (15709542) Iron deficiency anemia (D50.9) Active confirmed Problem 386138292 Gastroesophageal reflux disease without esophagitis (K21.9) Active confirmed Problem 034018959 Long-term use of aspirin therapy (Z79.82) Active confirmed Problem Gastritis (2524667) Gastritis (K29.70) Active c onfirmed Problem Gastroesophageal reflux disease (303347251) GERD (gastroesophageal reflux disease) (K21.9) Active confirmed Problem 798236266 Hx of adenomatou s colonic polyps (Z86.010) Active confirmed Problem Diverticulosis of colon (645920522) Diverticulosis of colon (K57.30) Active confirmed Plan Of Treatment Future Test Test Name Order Date COLONOSCOPY 03/09/2019 UPPER GI ENDOSCOPY 06/05/2022 COLONOSCOPY 06/05/2022 Insurance Providers Payer Name Payer Address Payer Phone Subscriber Number Group Number Insured Name Patient Relationship to Insured Coverage Start Date Coverage End Date MEDICARE OF [place] [address] [place] [address] [id number] MAGDY KLEIN Self - patient is the insured MEDICAID OF [facility] [address] [place] [phone] [id number] MAGDY KLEIN Self - patient is the insured Medical (General) History Medical History History ICD Code 10/20/2008 colonoscopy--- ne gative except for diverticulosis and internal hemorrhoids Coronary artery disease--2 s tents placed by Dr. Will--most recent was in approx 2007 NIDDM Hypertension History of kidney stones Denies [place],CVA,Lung disease,renal disease GERD--EGD with Dr. Bruce in [...]
== END 2025-02-22 10:55 | disposition home or self-care (01) ==
LOC: HO.HMCH 10:12
PROVIDERS: PCP Internal Medicine
DX: I10 Essential (primary) hypertension (principal); E11.22 Type 2 diabetes mellitus with diabetic chronic kidney disease; I25.10 Atherosclerotic heart disease of native coronary artery without angina pectoris; K21.9 Gastro-esophageal reflux disease without esophagitis; E78.00 Pure hypercholesterolemia, unspecified; E66.3 Overweight; L30.9 Dermatitis, unspecified

== ENCOUNTER → 2025-02-22 10:12 | Outpatient (BNVA) | payer OTHER, SELFPAY | PROVIDERS: PCP Internal Medicine | DX: I12.9 Hypertensive chronic kidney disease with stage 1 through stage 4 chronic kidney disease, or unspecified chronic kidney disease (principal); E11.22 Type 2 diabetes mellitus with diabetic chronic kidney disease; N18.9 Chronic kidney disease, unspecified; I25.10 Atherosclerotic heart disease of native coronary artery without angina pectoris; K21.9 Gastro-esophageal reflux disease without esophagitis; E78.00 Pure hypercholesterolemia, unspecified; E66.3 Overweight; L30.9 Dermatitis, unspecified | CPT/HCPCS: 83036; 99212 ==

== ENCOUNTER 2025-02-24 09:32 | Outpatient (AMB) | payer OTHER, SELFPAY ==
--- NOTE | 2025-02-24 09:44 | A.OFFVIS_ITS ---
Intake Visit Reasons: OV-right shoulder replacement-discuss surgery Intake Note: Calderon is an 79 year old right hand dominant male who presents today for a follow up of his right shoulder pain. He was last seen with Dr. Gutierrez where he reports ongoing shoulder pain for many years now. Hx of Left Shoulder surgery w ith Dr. Garay. an MRI was ordered at his last visit . Allergies lisinopril Allergy (Mild, Verified 02/24/25 09:52) Cough Penicillins Allergy (Mild, Verified 02/24/25 09:52) RASH linagliptin [Tradjenta] Adverse Reaction (Mild, Verified 02/24/25 09:52) diarrhea HPI HPI OV-right shoulder replacement-discuss surgery: Details: Calderon is an 79 year old right hand dominant male who presents today for a follow up of his right shoulder pain. He was last seen with Dr. Gutierrez where he reports ongoing shoulder pain for many years now. Hx of Left Shoulder surgery with Dr. Garay. an MRI was ordered at his last visit . He has had pain for years. Mostly it is pain at night and with overhead reaching. PENDING SALE TO [facility] Medical History Headache Iron deficiency anemia HTN (hypertension) Weight loss Acute bronchitis Sciatic nerve palsy, left Chest pain Burning chest pain Left shoulder pain Constipation Foul smelling urine BPH (benign prostatic hyperplasia) Fatty liver Renal calculi Adrenal adenoma GERD (gastroesophageal reflux disease) Hypercholesterolemia Coronary artery disease Overweight (BMI 25.0-29.9) Type 2 diabetes mellitus with hyperglycemia Surgical History Hx of hand surgery History of transurethral resection of prostate History of esophagogastroduodenoscopy (EGD) H/O colonoscopy Hx of heart artery stent 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 History of nephrolithiasis History of prostate surgery History of arthroscopy of left shoulder History of tonsillectomy Family History Father Diabetes Hypertension CVD (cardiovascular disease) Mother Diabetes Social History Household Members: Family Housing: House Are you a primary personal care worker to a significant other at home: No Do you presently have visiting nurse or other home services: No Alcohol intake: never Patient Tobacco Use Status: Former Tobacco user Tobacco use type: Cigarette Cigarette Packs Per Day: 1.5 e-Cigarette/Vaping Use: Never Used Second Hand Smoke Exposure: Yes service: No Current occupational status: retired Cognitive needs: Yes (cane) Hearing needs: No Vision needs: Yes (perscription glasses) Physical Exam Extrem Other: Positive drop-arm on the right. Passive range of motion is full. Office Procedures Joint Inj/Aspir; Non-Pain Clin Joint Injection/Drain Details: Injected 1 mL of Decadron and 3 mL 1% lidocaine and 3 mL of 0.25% Marcaine. Site was prepped using aseptic technique. Patient tolerated the procedure well. Shoulders, Hips, Knees, Shoulder Injection Large joint 95232: Right Shoulder Coding Procedure code (CPT) selection complete Results Reviewed Results Reviewed: I personally reviewed the MR images. Impression: Large full-thickness retracted tears of the supraspinatus and infraspinatus tendons with tendon retracted to the superior margin of the humeral head. Tear at approximately 2 x 3.5 cm in length and width. Severe tendinosis and articular surface partial tear of the subscapularis tendon. Bursal surface fibers intact. Atrophic subscapularis muscle. No significant volume loss or fatty infiltration of the remaining cuff muscles. Severe tendinosis and high-grade partial tear suggested of the intra-articular biceps with interstitial tear component of the extra-articular biceps. Mild medial subluxation of the tendon. Reactive marrow edema in the anterior humeral head. Degenerative tear of the posterior labrum with small paralabral cyst. Small joint effusion freely extending to the subdeltoid subacromial bursa. Assessment & Plan Assessment & Plan (1) Rotator cuff insufficiency of right shoulder: Code(s): M25.311 - Other instability, right shoulder Category: Medical Plan: This is an 79-year-old with rotator cuff insufficiency of the right shoulder. He has done physical therapy but never had injections. I reviewed the nonoperative and operative options. I discussed shoulder replacement with him. I reviewed the mechanics of a reverse total shoulder and explained the risks to him including the risk of infection, dislocation, fracture. He expressed understanding and after an extended discussion we elected to go forward with a injection of his right shoulder. He is diabetic and I informed him of the hyperglycemic effects of steroids. In addition this is a factor in terms of risks for complications after total shoulder arthroplasty with the elevated hemoglobin A1c. At this point in time the risks do not justify the benefits. (2) Diabetes mellitus with chronic kidney disease: Code(s): E11.22 - Type 2 diabetes mellitus with diabetic chronic kidney disease Category: Medical Plan: Hyperglycemic effects of steroids discussed. Coding Level of Care Code Est Pt Level 4 (19248) Complex EM visit Add On G2211 Diagnoses Rotator cuff insufficiency of right shoulder M25.311 Diabetes mellitus with chronic kidney disease E11.22 CPT Codes Shoulders, Hips, Knees, - Shoulder Injection Large joint : Right Shoulder ([id number])
--- OUTSIDE RECORDS SUMMARY | 2025-02-24 10:34 | XMS_ITS | Patient Health Record ---
Author Organization [facility] Address [address] [place] [address] Care Team Providers Care Sales Associate Name Role Phone Aaron Collazo MD Primary Care Provider Elbert Hanson [phone] Allergies Allergen (clinical drug ingredient) Drug/Non Drug [...] Problem Status W/U Status Risk Notes Problem 149977545 Encounter for screening for malignant neoplasm of colon (Z12.11) Active confirmed Problem Screening for malignant neoplasm of rectum (174580344) Encounter for screening for malignant neoplasm of rectum (Z12.12) Active confirmed Problem Iron deficiency anemia (58820418) Iron deficiency anemia (D50.9) Active confirmed Problem 272612535 Gastroesophageal reflux disease without esophagitis (K21.9) Active confirmed Problem 570184607 Long-term use of aspirin therapy (Z79.82) Active confirmed Problem Gastritis (8265971) Gastritis (K29.70) Active c onfirmed Problem Gastroesophageal reflux disease (481639755) GERD (gastroesophageal reflux disease) (K21.9) Active confirmed Problem 217639338 Hx of adenomatou s colonic polyps (Z86.010) Active confirmed Problem Diverticulosis of colon (036326666) Diverticulosis of colon (K57.30) Active confirmed Plan Of Treatment Future Test Test Name Order Date COLONOSCOPY 03/09/2019 UPPER GI ENDOSCOPY 06/05/2022 COLONOSCOPY 06/05/2022 Insurance Providers Payer Name Payer Address Payer Phone Subscriber Number Group Number Insured Name Patient Relationship to Insured Coverage Start Date Coverage End Date MEDICARE OF [place] [address] [place] [address] [id number] MAGDY KLEIN Self - patient is the insured MEDICAID OF [facility] [address] [place] [address] [id number] MAGDY KLEIN Self - patient is the insured Medical (General) History Medical History History ICD Code 10/20/2008 colonoscopy--- ne gative except for diverticulosis and internal hemorrhoids Coronary artery disease--2 s tents placed by Dr. Will--most recent was in approx 2007 NIDDM Hypertension History of kidney stones Denies [place],CVA,Lung disease,renal disease GERD--EGD with Dr. Bruce in [...]
== END 2025-02-24 10:27 | disposition home or self-care (01) ==
LOC: HO.HOS 09:33
PROVIDERS: PCP Internal Medicine; Visit Provider Orthopaedic Surgery
DX: M25.311 Other instability, right shoulder (principal); E11.22 Type 2 diabetes mellitus with diabetic chronic kidney disease
CPT/HCPCS: 20610; 99214

== ENCOUNTER → 2025-02-24 09:32 | Outpatient (BNVA) | payer OTHER, SELFPAY | PROVIDERS: PCP Internal Medicine; Visit Provider Orthopaedic Surgery | DX: M25.311 Other instability, right shoulder (principal); E11.22 Type 2 diabetes mellitus with diabetic chronic kidney disease; N18.9 Chronic kidney disease, unspecified | CPT/HCPCS: 20610; 99212; J0665; J1100; J2003 ==

== ENCOUNTER → 2025-02-28 09:32 | Outpatient (REF) | payer OTHER, SELFPAY ==
--- NOTE | ~2025-02-28 | NM_ITS ---
Lexiscan Myocardial perfusion study Indication: Exertional fatigue to rule out myocardial ischemia Technique: The patient was brought in for a Lexiscan perfusion study on February 28, 2025 and was injected 0.4 mg of Lexiscan intravenously. Within a minute of this injection 25 mCi of sestamibi was given intravenously. Images were obtained using the SPECT gamma camera interlaced with the gating device. Images were obtained in supine position. Resting perfusion study was performed on March 01, 2025. Patient was administered 25 mCi of sestamibi intravenously at rest. Images were then obtained in supine position. Images obtained with and without CT attenuation. Total DLP 146 mGy-cm. Images were processed with the software and compared side to side in short axis, horizontal long axis and vertical long axis views. Findings: The stress perfusion study showed nonattenuated images show small area of mildly reduced uptake in the distal lateral wall of the LV myocardium. There is also minimal thinning of the distal anterior wall of the LV myocardium. Remainder of the LV myocardium is normally perfused. Attenuated corrected images show normal uptake ordered images in all segments of the LV myocardium. The gated study shows normal LV systolic function with calculated LVEF of 63%. LV cavity is normal in size. The gated study shows normal systolic wall thickening and contraction of segments. Resting study shows both attenuated as well as nondistended corrected images show normal uptake of the LV myocardium. Gating at rest reveals normal systolic wall motion with ejection fraction at 55%. The findings are consistent with defect noted on nonattenuated stress images appears to be related to artifact from arms down position. No reversible defect noted on attenuated corrected images. Likely normal myocardial perfusion. NM/NM cardiolite stress test Impression: 1. Myocardial perfusion imaging study shows likely normal myocardial perfusion 2. Gated LVEF is 55% 3. Transient ischemic dilatation not present Nondiagnostic changes on EKG. Electronically signed by: Crow Grier MD 03/02/2025 01:59 PM EDT
--- NOTE | 2025-02-28 09:36 | CA_ITS ---
Acquisition Time: 2025-02-28 09:52:49 Total Exercise Time: 00:08:22 Test Indications: CP, CAD Medications: SEE H&P Protocol: GORDNO Max HR: 164 BPM 117% of Pred: 139 BPM Max BP: 180/64 mmHG Max Work Load: 10.1 METS Exercise stress test with exercise 8 mins 22 secs of Gordon Protocol, achieving 74% MPHR. With reports of feeling tried. Suboptimal HR. Without EKG changes at achieved workload. Test switched to Lexiscan. Pharmacological stress test with Lexiscan while pt continued to walk on treadmill at 1.2mph, with reports of chest discomfort, abdominal discomfort and mild SOB, with isolated PAVCs, with normotensive response to injection. Nondiagnostic EKG for ischemia. In recovery, pt treated with IVP Aminophylline 75 mg to reverse Lexiscan after which pt feeling back to baseline. Nuclear images pending. Test reviewed with Dr. Grier. Referred By: Scarlet Sevilla Electronically Signed By: Bro Angeles
--- OUTSIDE RECORDS SUMMARY | 2025-02-28 10:35 | XMS_ITS | Patient Health Record ---
Author Organization [facility] Address [address] [place] [address] Care Team Providers Care Senior Billing Consultant Name Role Phone Aaron Collazo MD Primary Care Provider Elbert Hanson [phone] Allergies Allergen (clinical drug ingredient) Drug/Non Drug [...] Problem Status W/U Status Risk Notes Problem 710106287 Encounter for screening for malignant neoplasm of colon (Z12.11) Active confirmed Problem Screening for malignant neoplasm of rectum (607442421) Encounter for screening for malignant neoplasm of rectum (Z12.12) Active confirmed Problem Iron deficiency anemia (64689297) Iron deficiency anemia (D50.9) Active confirmed Problem 518040619 Gastroesophageal reflux disease without esophagitis (K21.9) Active confirmed Problem 874813212 Long-term use of aspirin therapy (Z79.82) Active confirmed Problem Gastritis (1167851) Gastritis (K29.70) Active c onfirmed Problem Gastroesophageal reflux disease (864136037) GERD (gastroesophageal reflux disease) (K21.9) Active confirmed Problem 617890313 Hx of adenomatou s colonic polyps (Z86.010) Active confirmed Problem Diverticulosis of colon (062590960) Diverticulosis of colon (K57.30) Active confirmed Plan Of Treatment Future Test Test Name Order Date COLONOSCOPY 03/09/2019 UPPER GI ENDOSCOPY 06/05/2022 COLONOSCOPY 06/05/2022 Insurance Providers Payer Name Payer Address Payer Phone Subscriber Number Group Number Insured Name Patient Relationship to Insured Coverage Start Date Coverage End Date MED[place]ARE OF [place] [address] [place] [address] [id number] MAGDY KLEIN Self - patient is the insured MEDICAID OF [facility] [address] [place] [address] [id number] MAGDY KLEIN Self - patient is the insured Medical (General) History Medical History History ICD Code 10/20/2008 colonoscopy--- ne gative except for diverticulosis and internal hemorrhoids Coronary artery disease--2 s tents placed by Dr. Will--most recent was in approx 2007 NIDDM Hypertension History of kidney stones Denies [place],CVA,Lung disease,renal disease GERD--EGD with Dr. Bruce in [...] 4V CABG Iron def anemia--sees Dr. Beltrán--has gatse d Iron infusions EGD 06/2022 with a small hiat al hernia, normal duodenal biopsies without any sign of celiac disease, and no esophagitis. Gastric biopsies were negative for H.pylori. Colonoscopy 06/2022 with a small tubular adenoma removed Surgical History Surgery Date(Month/Year) Tonsillectomy Eye surgery left prostate surgery 4V CABG 08/2019
== END ==
LOC: HO.CARD 09:32
PROVIDERS: PCP Internal Medicine; Visit Provider Nurse Practitioner Family
DX: I25.10 Atherosclerotic heart disease of native coronary artery without angina pectoris (principal); R53.83 Other fatigue; E11.65 Type 2 diabetes mellitus with hyperglycemia
CPT/HCPCS: 78452; 93017; A9500; J0280; J2785

== ENCOUNTER → 2025-02-28 09:36 | Outpatient (BNV) | payer OTHER, SELFPAY | PROVIDERS: PCP Internal Medicine | DX: I49.1 Atrial premature depolarization (principal); I49.3 Ventricular premature depolarization | CPT/HCPCS: 78452; 93016; 93018 ==

== ENCOUNTER 2025-04-21 11:02 | Outpatient (REF) | payer OTHER, SELFPAY ==
[2025-04-21 12:22] LABS: Anion Gap 11 (12-20); Blood Urea Nitrogen 19 mg/dL (9-16); Calcium 9.6 mg/dL (8.4-10.2); Carbon Dioxide 26 mmol/L (22-29); Chloride 106 mmol/L (96-108); Estimated Glomerular Filt Rate 56; Glucose Random 292 mg/dL (60-115); Sodium 139 mmol/L (135-145)
[2025-04-21 12:38] LABS: Appearance Urine Clear; Color Urine Yellow; Glucose Urine UA >=1000 mg/dL (Negative); Leukocyte Esterase Urine Negative (Negative); Nitrite Urine Negative (Negative); Specific Gravity - Urine 1.025 (1.005-1.025); UMIC TRIGGER UA YES; Urine Blood Negative (Negative); Urine Ketones Negative (Negative); Urine Protein Negative (Neg-Trace)
[2025-04-21 12:49] LABS: Bacteria Urine None Seen (None Seen); Hyaline Casts Urine 0-2 /LPF (0-2); RBC Urine 0-2 /HPF (0-2); Squamous Epithelial Cell Urine 0-2 /HPF (0-2); WBC Urine 0-5 /HPF (0-5)
--- OUTSIDE RECORDS SUMMARY | 2025-04-21 13:07 | XMS_ITS | Patient Health Record ---
Author Organization [facility] Address [address] [place] [address] Care Team Providers Care Harbor Patrol Police Name Role Phone Aaron Collazo MD Primary Care Provider Elbert Hanson [phone] Allergies Allergen (clinical drug ingredient) Drug/Non Drug [...] Problem Status W/U Status Risk Notes Problem 501191816 Encounter for screening for malignant neoplasm of colon (Z12.11) Active confirmed Problem Screening for malignant neoplasm of rectum (239179979) Encounter for screening for malignant neoplasm of rectum (Z12.12) Active confirmed Problem Iron deficiency anemia (38047266) Iron deficiency anemia (D50.9) Active confirmed Problem 929428685 Gastroesophageal reflux disease without esophagitis (K21.9) Active confirmed Problem 377138810 Long-term use of aspirin therapy (Z79.82) Active confirmed Problem Gastritis (0225228) Gastritis (K29.70) Active c onfirmed Problem Gastroesophageal reflux disease (340477341) GERD (gastroesophageal reflux disease) (K21.9) Active confirmed Problem 427326057 Hx of adenomatou s colonic polyps (Z86.010) Active confirmed Problem Diverticulosis of colon (529533048) Diverticulosis of colon (K57.30) Active confirmed Plan Of Treatment Future Test Test Name Order Date COLONOSCOPY 03/09/2019 UPPER GI ENDOSCOPY 06/05/2022 COLONOSCOPY 06/05/2022 Insurance Providers Payer Name Payer Address Payer Phone Subscriber Number Group Number Insured Name Patient Relationship to Insured Coverage Start Date Coverage End Date MEDICARE OF [place] [address] [place] [address] [id number] MAGDY KLEIN Self - patient is the insured MEDICAID OF [facility] [address] [place] [address] [phone] [id number] MAGDY KLEIN Self - patient is the insured Medical (General) History Medical History History ICD Code 10/20/2008 colonoscopy--- ne gative except for diverticulosis and internal hemorrhoids Coronary artery disease--[address] s [address] placed by Dr. Will--most recent was in approx 2007 NIDDM Hypertension History of kidney stones Denies [place],CVA,Lung disease,renal disease GERD--EGD with Dr. Bruce in [...]
[2025-04-21 13:38] LABS: Creatinine Urine 35.25 mg/dL; Total Protein Urine Random < 7 mg/dL (<12)
== END 2025-04-21 11:03 | disposition home or self-care (01) ==
LOC: HO.LAB 11:02
PROVIDERS: Visit Provider Internal Medicine Hypertension Specialist
DX: N18.30 Chronic kidney disease, stage 3 unspecified (principal); E11.22 Type 2 diabetes mellitus with diabetic chronic kidney disease
CPT/HCPCS: 36415; 80048; 81001; 81003; 82570; 84156

== ENCOUNTER 2025-04-25 10:00 | Outpatient (AMB) | payer OTHER, SELFPAY ==
--- NOTE | 2025-04-25 10:08 | HO.NEPHOV_ITS ---
Vital Signs 04/25/25 10:12 Height 5 ft 9 in Weight 161 lb BMI 23.8 BP 100/50 L Blood Pressure Location Lt brachial Position Sitting Pulse 80 Pulse Source Pulse Oximeter Pulse Oximetry (%) 93 Oxygen Delivery Method Room Air Intake Visit Reasons: CKD/ LVM Import/Export Freight Forwarder Required: No Accompanied by: Self / Same As Patient Allergies lisinopril Allergy (Mild, Verified 04/25/25 10:11) Cough Penicillins Allergy (Mild, Verified 04/25/25 10:11) RASH linagliptin [Tradjenta] Adverse Reaction (Mild, Verified 04/25/25 10:11) diarrhea Medication List - Last Reconciled 04/25/25 by Timur Romo MD ascorbic acid (vitamin C) (Vitamin C) 500 mg PO BID 90 days aspirin 81 mg PO DAILY blood sugar diagnostic As directed blood sugar diagnostic ([employer] Ultra Test strips) As directed check bs BID blood sugar diagnostic As directed check blood sugar 2 times a day cholecalciferol (vitamin D3) 25 mcg PO DAILY cyclobenzaprine 10 mg PO BEDTIME PRN dulaglutide (Trulicity) 3 mg (0.5 mL) subcut QWEEK empagliflozin 25 mg PO DAILY finasteride (Proscar) 5 mg PO DAILY 90 days furosemide 20 mg PO DAILY 90 days glipizide ER 10 mg PO DAILY hydroxyzine HCl 10 mg PO BEDTIME PRN isosorbide mononitrate ER 30 mg PO DAILY lidocaine 5% 2 patches topical DAILY magnesium oxide 400 mg PO DAILY metoprolol tartrate 25 mg PO BID 90 days omeprazole 20 mg PO QAM potassium chloride ER 20 mEq PO DAILY rosuvastatin 40 mg PO DAILY triamcinolone acetonide 0.5% 1 appl topical BID vitamin B complex (B Complex-Vitamin B12 tablet) 1 tab PO DAILY vitamin E (dl, acetate) 100 units PO DAILY [walking cane As directed] zinc acetate 25 mg PO DAILY HPI Comments Details: 77-year-old male with a history of CAD status post quadruple bypass, diabetes, hypertension, iron deficiency anemia, HLD, GERD, has been referred for CKD. Baseline serum creatinine has been around 1.2-1.4 mg/dL. After lowering Lasix 20mg QD and doing He has no edema. He has occasional lightheadedness. No urine symptoms. 07/08/24 ;C/o insomnia;Drinks coke in evening 10/18/24;No improvement in insomnia;Abscess in buttocks and waiting for surgery 01/06/25;c/o itching in back. 04/25/25 79-year-old male presenting for monitoring of chronic kidney disease. Over the past year, there has been a noted improvement in kidney function, with GFR values increasing from 49% to 56%. No respiratory or urinary issues have been reported, suggesting stable kidney function. The patient's diabetes management remains challenging due to high blood sugar levels, despite dietary mo difications and pharmacologic treatment with empagliflozin. His history includes coronary artery bypass graft surgery, and he continues on medication for hypertension. The patient's hydration habits are adequate, and he currently plans to visit his primary care physician before traveling abroad due to personal obligations. [facility] Medical History Headache Iron deficiency anemia HTN (hypertension) Weight loss Acute bronchitis Sciatic nerve palsy, left Chest pain Burning chest pain Left shoulder pain Constipation Foul smelling urine BPH (benign prostatic hyperplasia) Fatty liver Renal calculi Adrenal adenoma GERD (gastroesophageal reflux disease) Hypercholesterolemia Coronary artery disease Overweight (BMI 25.0-29.9) Type 2 diabetes mellitus with hyperglycemia Surgical History Hx of hand surgery History of transurethral resection of prostate History of esophagogastroduodenoscopy (EGD) H/O colonoscopy Hx of heart artery stent 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 History of nephrolithiasis History of prostate surgery History of arthroscopy of left shoulder History of tonsillectomy Family History Father Diabetes Hypertension CVD (cardiovascular disease) Mother Diabetes Social History Household Members: Family Housing: House Are you a primary lead caregiver to a significant other at home: No Do you presently have visiting nurse or other home services: No Alcohol intake: never Patient Tobacco Use Status: Former Tobacco user Tobacco use type: Cigarette Cigarette Packs Per Day: 1.5 e-Cigarette/Vaping Use: Never Used Second Hand Smoke Exposure: Yes service: No Current occupational status: retired Cognitive needs: Yes (cane) Hearing needs: No Vision needs: Yes (perscription glasses) Physical Exam Vital Signs: Last Vital Signs Pulse 80 04/25/25 10:12 BP 100/50 L 04/25/25 10:12 Pulse Ox 93 04/25/25 10:12 Oxygen Delivery Method Room Air 04/25/25 10:12 BMI result Body Mass Index 23.8 Comfortable Neck supple no JVD. Lungs entry equal no rales. Heart S1-S2 heard no gallop or rub. Abdomen soft nontender. Neuro alert awake oriented. No asterixis. Extremities no edema. Results Reviewed Nephrology Results: Sodium 139 mmol/L (135-145) 04/21/25 Potassium 4.0 mmol/L (3.3-5.1) 04/21/25 Chloride 106 mmol/L (96-108) 04/21/25 Carbon Dioxide 26 mmol/L (22-29) 04/21/25 BUN 19 mg/dL (9-16) H 04/21/25 Creatinine 1.23 mg/dL (0.5-1.4) 04/21/25 Calcium 9.6 mg/dL (8.4-10.2) 04/21/25 Urine Protein Negative mg/dL (Neg-Trace) 04/21/25 Urine Creatinine 35.25 mg/dL 04/21/25 Assessment & Plan Assessment & Plan (1) CKD (chronic kidney disease) stage 3, GFR 30-59 ml/min: Code(s): N18.30 - Chronic kidney disease, stage 3 unspecified Category: Medical (2) Diabetes mellitus with chronic kidney disease: Code(s): E11.22 - Type 2 diabetes mellitus with diabetic chronic kidney disease Category: Medical Plan 79-year-old man with stage III CKD in a setting of longstanding hypertension diabetes mellitus and coronary disease. He has no significant proteinuria. He probably has underlying hypertension nephrosclerosis. No evidence of any obstructive uropathy. Cr is stable I have encouraged him to stay on low-sodium diet He should watch for leg edema and if he has any shortness of breath or indication to increase the Lasix to 40 mg. Agree with using SGLT-2 inhibitors for renal protection. Decreased Metoprolol to 25 mg BID from TID due to low BP and currently BP is acceptable Orders: Orders Basic Metabolic Panel 6 Months N18.30 - Chronic kidney disease, stage 3 unspecified Coding Level of Care Code Est Pt Level 4 (64689) Diagnoses CKD (chronic kidney disease) stage 3, GFR 30-59 ml/min N18.30 Diabetes mellitus with chronic kidney disease E11.22
[2025-04-25 10:12] VITALS: BP 100/50; PULSE 80; O2SAT 93; BMI 23.8
--- OUTSIDE RECORDS SUMMARY | 2025-04-25 10:59 | XMS_ITS | Patient Health Record ---
Author Organization [facility] Address [address] [place] [address] Care Team Providers Care Oriental Rug Repairer Name Role Phone Aaron Collazo MD Primary Care Provider Elbert Hanson [phone] Allergies Allergen (clinical drug ingredient) Drug/Non Drug [...] Problem Status W/U Status Risk Notes Problem 155677931 Encounter for screening for malignant neoplasm of colon (Z12.11) Active confirmed Problem Screening for malignant neoplasm of rectum (523335331) Encounter for screening for malignant neoplasm of rectum (Z12.12) Active confirmed Problem Iron deficiency anemia (43160153) Iron deficiency anemia (D50.9) Active confirmed Problem 673116875 Gastroesophageal reflux disease without esophagitis (K21.9) Active confirmed Problem 864083736 Long-term use of aspirin therapy (Z79.82) Active confirmed Problem Gastritis (4227482) Gastritis (K29.70) Active c onfirmed Problem Gastroesophageal reflux disease (944888991) GERD (gastroesophageal reflux disease) (K21.9) Active confirmed Problem 260445636 Hx of adenomatou s colonic polyps (Z86.010) Active confirmed Problem Diverticulosis of colon (126537294) Diverticulosis of colon (K57.30) Active confirmed Plan Of Treatment Future Test Test Name Order Date COLONOSCOPY 03/09/2019 UPPER GI ENDOSCOPY 06/05/2022 COLONOSCOPY 06/05/2022 Insurance Providers Payer Name Payer Address Payer Phone Subscriber Number Group Number Insured Name Patient Relationship to Insured Coverage Start Date Coverage End Date MEDICARE OF [place] [address] [place] [address] [id number] MAGDY KLEIN Self - patient is the insured MEDICAID OF [facility] [address] [place] [address] [phone] [id number] MAGDY KLEIN Self - patient is the insured Medical (General) History Medical History History ICD Code 10/20/2008 colonoscopy--- ne gative except for diverticulosis and internal hemorrhoids Coronary artery disease--[address] Will--most recent was in approx 2007 NIDDM Hypertension History of kidney stones Denies MS,CVA,Lung disease,renal disease GERD--EGD with Dr. Bruce in [...]
== END 2025-04-25 10:23 | disposition home or self-care (01) ==
LOC: HO.HKA 10:01
PROVIDERS: PCP Internal Medicine; Visit Provider Internal Medicine Hypertension Specialist
DX: E11.22 Type 2 diabetes mellitus with diabetic chronic kidney disease (principal); N18.30 Chronic kidney disease, stage 3 unspecified
CPT/HCPCS: 99214

== ENCOUNTER → 2025-04-25 10:00 | Outpatient (BNVA) | payer OTHER, SELFPAY | PROVIDERS: PCP Internal Medicine; Visit Provider Internal Medicine Hypertension Specialist | DX: Z71.3 Dietary counseling and surveillance (principal); I10 Essential (primary) hypertension; N18.30 Chronic kidney disease, stage 3 unspecified; E11.9 Type 2 diabetes mellitus without complications | CPT/HCPCS: 99212 ==

== ENCOUNTER 2025-04-27 10:20 | Outpatient (AMB) | payer OTHER, SELFPAY ==
--- NOTE | 2025-04-27 10:28 | MHC.PC.OV ---
Vital Signs 04/27/25 10:29 Height 5 ft 9 in Weight 159 lb 8 oz BMI 23.6 BP 110/60 Blood Pressure Location Lt brachial Position Sitting Pulse 80 Pulse Source Pulse Oximeter Temp 97.5 F Temp Source Temporal Artery Scan Pulse Oximetry (%) 94 Oxygen Delivery Method Room Air Intake Visit Reasons: 3mth f/u Intake Note: Patient is here to follow up on DM, CKD, HTN. Miller Apprentice Required: No Senior Analyst: Not Required per policy Accompanied by: Self / Same As Patient Allergies lisinopril Allergy (Mild, Verified 04/27/25 10:29) Cough Penicillins Allergy (Mild, Verified 04/27/25 10:29) RASH linagliptin [Tradjenta] Adverse Reaction (Mild, Verified 04/27/25 10:29) diarrhea Medication List - Last Reconciled 04/27/25 by Aaron Collazo MD ascorbic acid (vitamin C) (Vitamin C) 500 mg PO BID 90 days aspirin 81 mg PO DAILY blood sugar diagnostic As directed blood sugar diagnostic ([employer] Ultra Test strips) As directed check bs BID blood sugar diagnostic As directed check blood sugar 2 times a day bupropion HCl XL (Wellbutrin XL) 150 mg PO QAM cholecalciferol (vitamin D3) 25 mcg PO DAILY cyclobenzaprine 10 mg PO BEDTIME PRN dulaglutide (Trulicity) 3 mg (0.5 mL) subcut QWEEK empagliflozin 25 mg PO DAILY finasteride (Proscar) 5 mg PO DAILY 90 days furosemide 20 mg PO DAILY 90 days glipizide ER 10 mg PO DAILY hydroxyzine HCl 10 mg PO BEDTIME PRN isosorbide mononitrate ER 30 mg PO DAILY lidocaine 5% 2 patches topical DAILY magnesium oxide 400 mg PO DAILY metoprolol tartrate 25 mg PO BID 90 days omeprazole 20 mg PO QAM potassium chloride ER 20 mEq PO DAILY rosuvastatin 40 mg PO DAILY triamcinolone acetonide 0.5% 1 appl topical BID vitamin B complex (B Complex-Vitamin B12 tablet) 1 tab PO DAILY vitamin E (dl, acetate) 100 units PO DAILY [walking cane As directed] zinc acetate 25 mg PO DAILY Tobacco use date assessed: 04/27/25 Fall risk assessment: No Falls in past year Last assessed Fall Risk: 04/27/25 Dental Screening Dental Screen Date: 12/28/24 HPI 3mth f/u HPI Details R shoulder pain , not any better with the injection. using brace now. complains of having memory problem PFSH Medical History Headache Iron deficiency anemia HTN (hypertension) Weight loss Acute bronchitis Sciatic nerve palsy, left Chest pain Burning chest pain Left shoulder pain Constipation Foul smelling urine BPH (benign prostatic hyperplasia) Fatty liver Renal calculi Adrenal adenoma GERD (gastroesophageal reflux disease) Hypercholesterolemia Coronary artery disease Overweight (BMI 25.0-29.9) Type 2 diabetes mellitus with hyperglycemia Surgical History Hx of hand surgery History of transurethral resection of prostate History of esophagogastroduodenoscopy (EGD) H/O colonoscopy Hx of heart artery stent 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 History of nephrolithiasis History of prostate surgery History of arthroscopy of left shoulder History of tonsillectomy Family History Father Diabetes Hypertension CVD (cardiovascular disease) Mother Diabetes Social History Household Members: Family Housing: House Are you a primary foster care therapist to a significant other at home: No Do you presently have visiting nurse or other home services: No Alcohol intake: never Patient Tobacco Use Status: Former Tobacco user Tobacco use type: Cigarette Cigarette Packs Per Day: 1.5 e-Cigarette/Vaping Use: Never Used Second Hand Smoke Exposure: Yes service: No Current occupational status: retired Cognitive needs: Yes (cane) Hearing needs: No Vision needs: Yes (perscription glasses) Questionnaire PHQ-9 Over the last 2 weeks, how often have you been bothered by any of the following problems? 1. Little interest or pleasure in doing things: several days Source: Developed by Drs. Elbert Boogie, Esther Hilliard, Anurag Gupta and colleagues, with an educational elfego from [employer]. Thrive Questionnaire Date Thrive assessed: 12/28/24 TRINH-7 AMB Questionnaire TRINH-7 Date TRINH - 7 assessed: 12/28/24 Source: Developed by Drs. Elbert Boogie, Esther Hilliard, Anurag Gupta and colleagues, with an educational elfego from [employer]. Physical exam (Primary Care) Vital Signs: Last Vital Signs Temp 97.5 F 04/27/25 10:29 Pulse 80 04/27/25 10:29 BP 110/60 04/27/25 10:29 Pulse Ox 94 04/27/25 10:29 Oxygen Delivery Method Room Air 04/27/25 10:29 BMI result Body Mass Index 23.6 Tobacco/Smoking Status: Tobacco use Status Tobacco use date assessed 04/27/25 04/27/25 10:33 Patient Tobacco Use Status Former Tobacco user 04/27/25 10:33 Tobacco use type Cigarette 04/27/25 10:33 e-Cigarette/Vaping Use Never Used 04/27/25 10:33 Thrive Assessment: Date of Thrive Assessment Date Thrive assessed 12/28/24 04/27/25 10:33 Const General: alert; No acute distress Eyes Conjunctivae: conjunctivae normal Resp Auscultation: clear to auscultation bilaterally Cardio Rate: regular rate Rhythm: regular rhythm GI Inspection: Yes normal to inspection Extrem General: Yes normal to inspection and No edema Coding Level of Care Code Est Pt Level 4 (61011) Complex EM visit Add On G2211 Diagnoses Type 2 diabetes mellitus with hyperglycemia, without long-term current use of insulin E11.65 Diabetes mellitus equipment operator intermodal yard insulin use: without equipment operator intermodal yard use Hypercholesterolemia E78.00 Gastroesophageal reflux disease without esophagitis K21.9 Esophagitis presence: without esophagitis Generalized anxiety disorder F41.1 BPH (benign prostatic hyperplasia) N40.0 Coronary artery disease involving [place] coronary artery of [place] heart without angina pectoris I25.10 Associated angina: without angina Coronary Disease-Associated Artery/Lesion type: [place] artery [place] vs. 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 Memory problem R41.3 Assessment & Plan Assessment & Plan (1) Type 2 diabetes mellitus with hyperglycemia: Comment: [facility] Eye exam Code(s): E11.65 - Type 2 diabetes mellitus with hyperglycemia Category: Medical Qualifiers: Diabetes mellitus jail insulin use: without equipment operator intermodal yard use Qualified Code(s): E11.65 - Type 2 diabetes mellitus with hyperglycemia Plan: It is plan patient on Trulicity 3 mg once a week Jardiance 25 mg once a day glipizide 10 mg once a day (2) Hypercholesterolemia: Code(s): E78.00 - Pure hypercholesterolemia, unspecified Category: Medical Plan: Avoid fried foods, chicken skin, eggs, butter margarine, pastries and meat. Be it pork or beef they have a lot of cholesterol September 2025 last blood work on rosuvastatin 40 mg once a day (3) GERD (gastroesophageal reflux disease): Code(s): K21.9 - Gastro-esophageal reflux disease without esophagitis Category: Medical Qualifiers: Esophagitis presence: without esophagitis Qualified Code(s): K21.9 - Gastro-esophageal reflux disease without esophagitis Plan: Avoid the foods that causes that usually spicy foods, tomato products, juices, coffee, soda and foods that your sensitive to. After eating do not lie down, allow 3-4 hours before in lie down. And keep the head of bed above 30 degrees to avoid the acid from going up. (4) Generalized anxiety disorder: Code(s): F41.1 - Generalized anxiety disorder Category: Medical Plan: Discussion about counseling. (5) BPH (benign prostatic hyperplasia): Code(s): N40.0 - Benign prostatic hyperplasia without lower urinary tract symptoms Category: Medical Plan: Continue with finasteride (6) Coronary artery disease: Comment: CABG August [address] Rhodes Code(s): I25.10 - Atherosclerotic heart disease of [place] coronary artery without angina pectoris Category: Medical Qualifiers: Associated angina: without angina Coronary Disease-Associated Artery/Lesion type: [place] artery [place] vs. transplanted heart: [place] heart Qualified Code(s): I25.10 - Atherosclerotic heart disease of [place] coronary artery without angina pectoris Plan: Control the cholesterol, weight, blood pressure, diabetes patient had an February myocardial perfusion testing normal (7) CKD (chronic kidney disease) stage 3, GFR 30-59 ml/min: Code(s): N18.30 - Chronic kidney disease, stage 3 unspecified Category: Medical Plan: Keep well hydrated avoid NSAIDs continue with Jardiance (8) HTN (hypertension): Code(s): I10 - Essential (primary) hypertension Category: Medical Plan: Continue with blood pressure medication. Decrease salt intake and exercise patient is on metoprolol 25 mg twice a day adjusted by Nephrology due to hypotension (9) Rotator cuff insufficiency of right shoulder: Code(s): M25.311 - Other instability, right shoulder Category: Medical Plan: Patient follows up with ortho and had injections done. (10) Memory problem: Code(s): R41.3 - Other amnesia Category: Medical Plan: MMSE 29/30 Plan History of Present Illness The patient is an 79-year-old male presenting with multiple chronic conditions and cognitive concerns. His chronic medical conditions include diabetes mellitus, hypercholesterolemia, GERD, generalized anxiety disorder, BPH, coronary artery disease, chronic kidney disease stage 3, and hypertension. He was last seen in February 2025 for follow-up. His past medical history indicates longstanding hypertension and diabetes, with the latter poorly controlled as evidenced by a hemoglobin A1c of 8.4% in February 2025. The patient reports a recent increase in blood glucose levels, partly attributed to a corticosteroid injection for shoulder pain, as he noticed that his blood sugar increased to 200 in the morning. He acknowledges adhering to a low sodium diet but reports difficulty with blood pressure, having experienced hypotension, which led to adjustments in metoprolol dosage by nephrology. Additionally, he has a history of chronic right shoulder pain, for which he has undergone injections with limited relief and discussions regarding potential surgery due to a torn rotator cuff, although he purchased and uses a shoulder brace for mild pain relief. The cardiolite stress test in February showed normal myocardial perfusion and an ejection fraction of 55%. The patient mentions cognitive concerns, expressing worry due to family history, and has undergone some cognitive testing without significant findings but acknowledges memory lapses for recent items and events. He exercises regularly, performing treadmill workouts for 30-35 minutes daily, though he mentions dietary concerns such as consuming rice and janie dylan. His sleep is interrupted, and he reports anxiety impacting his overall health. Health Maintenance - Low sodium diet recommended to support hypertension management. - Checked blood glucose levels suggest need for greater control; recent hemoglobin A1c was 8.4%. - Blood pressure management adjusted, medication dosage alteration due to hypotension. - Counseling on potential side effects of corticosteroid injections on glucose levels. - Encouragement of regular physical activity, though weight loss medications are not as effective as others discussed. - Advised to avoid NSAIDs to prevent renal complications. - Monitoring of cholesterol levels; last LDL in September was 52 mg/dL. - Cognitive function discussed, no significant memory impact noted at this time. Social History - Lives independently and drives his own vehicle. - Regular physical activity including treadmill for 30-35 minutes daily. - Watches diet but still consumes rice and janie dylan. - Previously consumed alcohol but has abstained for two years. - Expresses anxiety and interest in managing stress without excessive pharmaceutical interventions. - Attentive to family history concerning cognitive disorders, with two brothers having related conditions. Review of Systems - Neurological: Reports memory lapses. - Cardiovascular: Denies new chest pain. - Respiratory: Denies shortness of breath. - Gastrointestinal: Denies new symptoms. - Musculoskeletal: Reports ongoing right shoulder pain. - Endocrine: Reports increased blood glucose levels. - Psychiatric: Reports anxiety and nocturnal awakenings, denies depression. Physical Exam - General- Well-appearing, cooperative. - Vital signs- Not discussed explicitly in conversation. - Other systems- Not explicitly noted. Results - Labs: Hemoglobin A1c in February 2025 was 8.4%, blood glucose 292 mg/dL (April). - Cholesterol test in September showed LDL 52 mg/dL. - Blood count in December indicated anemia with values of 13.1 g/dL hemoglobin and 39.6% hematocrit. - Cardiolite stress test in February with normal myocardial perfusion, EF 55%. Plan For the patient's comprehensive care, I ensured the continuation of his diabetes medications while cultivating dietary mindfulness regarding rice and beverage choices to facilitate better glycemic control. Adjusted his antihypertensive regimen aligning with nephrological advice due to low blood pressure episodes. For cholesterol maintenance, current statin therapy remains appropriate. Recognizing the impact of corticosteroid injections on blood sugar, implications were disclosed. Addressed the potential for anxiety to amplify sleep disturbances, thus prescribed an appropriate daily medication to assist. Dutifully, we revisited his cognitive assessment results, concluding no indication for further specialist referral unless symptoms emerged. I informed him regarding orthopedic possibilities alongside the use of braces for shoulder pain relief. Reinforced sodium reduction and adequate hydration, with regular follow-ups to observe clinical progress in all aspects of his care. Patient was informed and verbally consented to the use of an ambient scribe for clinic note documentation during this visit. Discussion Notes In discussion with the patient, I explained the importance of effective blood glucose management in light of his hemoglobin A1c findings and recent blood sugar elevations following a steroid injection. We assessed potential dietary contributors, noting high carbohydrate intake. Risks associated with current medications were reviewed, including possible hypoglycemia due to glipizide. The patient was attentive to advice regarding hydration and avoiding NSAIDs to protect kidney function. Concerns regarding right shoulder discomfort were deliberated, considering surgical versus conservative management options. We discussed the cognitive screening findings, assuring the patient of their stability, yet ongoing monitoring was advised. Recommendations for anxiety and sleep issues incorporated mindful lifestyle practices supplemented with a new medication to explore symptomatic relief. Patient Instructions - Continue current medication regimen for diabetes, cholesterol, and hypertension as prescribed. - Pay attention to diet, reduce intake of carbohydrates, and monitor for high blood glucose. - Follow low sodium diet and maintain hydration. - Avoid NSAIDs; opt for Tylenol if needed for pain relief. - Engage in regular physical activity, maintaining current treadmill routine. - Try new anxiety medication as directed once daily in the morning. - Be vigilant for signs of hypoglycemia and check blood sugar at home. - Refrain from alcohol use. - Return to follow up in three months or as needed for any concerns. - Consider using shoulder brace for pain relief, weigh surgical options with orthopedic consultation. - Focus on stress management techniques for better sleep quality. Medications: New bupropion HCl XL (Wellbutrin XL) 150 mg PO QAM 30 tabs 5RF F41.1 - Generalized anxiety disorder Refilled metoprolol tartrate 25 mg PO BID 180 tabs 2RF htn 90 days I25.10 - Atherosclerotic heart disease of [place] coronary artery without angina pectoris
[2025-04-27 10:29] VITALS: BP 110/60; PULSE 80; TEMP 36.4; O2SAT 94; BMI 23.6
--- OUTSIDE RECORDS SUMMARY | 2025-04-27 11:43 | XMS_ITS | Patient Health Record ---
Author Organization [facility] Address [address] [place] [address] Care Team Providers Care Traffic Attendant Name Role Phone Aaron Collazo MD Primary Care Provider Elbert Hanson [phone] Allergies Allergen (clinical drug ingredient) Drug/Non Drug [...] Problem Status W/U Status Risk Notes Problem [id number] Encounter for screening for malignant neoplasm of colon (Z12.11) Active confirmed Problem Screening for malignant neoplasm of rectum (598574359) Encounter for screening for malignant neoplasm of rectum (Z12.12) Active confirmed Problem Iron deficiency anemia (69355976) Iron deficiency anemia (D50.9) Active confirmed Problem 553401458 Gastroesophageal reflux disease without esophagitis (K21.9) Active confirmed Problem 724209502 Long-term use of aspirin therapy (Z79.82) Active confirmed Problem Gastritis (4123422) Gastritis (K29.70) Active c onfirmed Problem Gastroesophageal reflux disease (024458404) GERD (gastroesophageal reflux disease) (K21.9) Active confirmed Problem 309681151 Hx of adenomatou s colonic polyps (Z86.010) Active confirmed Problem Diverticulosis of colon (543502186) Diverticulosis of colon (K57.30) Active confirmed Plan Of Treatment Future Test Test Name Order Date COLONOSCOPY 03/09/2019 UPPER GI ENDOSCOPY 06/05/2022 COLONOSCOPY 06/05/2022 Insurance Providers Payer Name Payer Address Payer Phone Subscriber Number Group Number Insured Name Patient Relationship to Insured Coverage Start Date Coverage End Date MEDICARE OF [place] [address] [place] [address] [id number] MAGDY KLEIN Self - patient is the insured MEDICAID OF [facility] [address] [place] [address] [id number] MAGDY KLEIN Self - patient is the insured Medical (General) History Medical History History ICD Code 10/20/2008 colonoscopy--- ne gative except for diverticulosis and internal hemorrhoids Coronary artery disease--[address] placed [address] Dr. Will--most recent was in approx 2007 NIDDM Hypertension History of kidney stones Denies [place],CVA,Lung disease,renal disease GERD--EGD with Dr. Burce in 2009--hiatal hernia and mild reflux esophagitis; [...]
== END 2025-04-27 11:06 | disposition home or self-care (01) ==
LOC: HO.HMCH 10:21
PROVIDERS: PCP Internal Medicine; Visit Provider Internal Medicine
DX: I12.9 Hypertensive chronic kidney disease with stage 1 through stage 4 chronic kidney disease, or unspecified chronic kidney disease (principal); E11.65 Type 2 diabetes mellitus with hyperglycemia; N18.30 Chronic kidney disease, stage 3 unspecified; E78.00 Pure hypercholesterolemia, unspecified; K21.9 Gastro-esophageal reflux disease without esophagitis; F41.1 Generalized anxiety disorder; N40.0 Benign prostatic hyperplasia without lower urinary tract symptoms; I25.10 Atherosclerotic heart disease of native coronary artery without angina pectoris; M25.311 Other instability, right shoulder; R41.3 Other amnesia

== ENCOUNTER → 2025-04-27 10:20 | Outpatient (BNVA) | payer OTHER, SELFPAY | PROVIDERS: PCP Internal Medicine; Visit Provider Internal Medicine | DX: E11.22 Type 2 diabetes mellitus with diabetic chronic kidney disease (principal); I12.9 Hypertensive chronic kidney disease with stage 1 through stage 4 chronic kidney disease, or unspecified chronic kidney disease; E11.65 Type 2 diabetes mellitus with hyperglycemia; N18.30 Chronic kidney disease, stage 3 unspecified; E78.00 Pure hypercholesterolemia, unspecified; K21.9 Gastro-esophageal reflux disease without esophagitis; N40.0 Benign prostatic hyperplasia without lower urinary tract symptoms; I25.10 Atherosclerotic heart disease of native coronary artery without angina pectoris; F41.1 Generalized anxiety disorder; M25.311 Other instability, right shoulder; R41.3 Other amnesia; M25.511 Pain in right shoulder; G89.29 Other chronic pain | CPT/HCPCS: 99212 ==

== ENCOUNTER 2025-05-30 09:36 | Outpatient (AMB) | payer OTHER, SELFPAY ==
--- NOTE | 2025-05-30 09:41 | MHC.OFFVIS ---
Vital Signs 05/30/25 09:42 Height 5 ft 9 in Weight 159 lb BMI 23.5 Intake Visit Reasons: Right shoulder Injection last done 02/24/25 Intake Note: Calderon is a 79 year old right hand dominant male who presents today for a follow up of his right shoulder pain. Last injection was administered to the right shoulder on 02/24/25. Due to high A1C he is not a surgical candidate. A1C 02/22/25 8.4. Patient reports that the last injection was not helpful, since the injection he has increased pain. Patient report Glucose reading of 157 this morning Allergies lisinopril Allergy (Mild, Verified 05/30/25 09:43) Cough Penicillins Allergy (Mild, Verified 05/30/25 09:43) RASH linagliptin (Tradjenta) Adverse Reaction (Mild, Verified 05/30/25 09:43) diarrhea HPI HPI Right shoulder Injection last done 02/24/25: Details: Calderon is a 79 year old right hand dominant male who presents today for a follow up of his right shoulder pain. Last injection was administered to the right shoulder on 02/24/25. Due to high A1C he is not a surgical candidate. A1C 02/22/25 8.4. Patient reports that the last injection was not helpful, since the injection he has increased pain. Patient report Glucose reading of 157 this morning. We had discussed arthroplasty in the past but his hemoglobin A1c is too high. He continues to describe difficulty with overhead activity and pain at night. [facility] Medical History Headache Iron deficiency anemia HTN (hypertension) Weight loss Acute bronchitis Sciatic nerve palsy, left Chest pain Burning chest pain Left shoulder pain Constipation Foul smelling urine BPH (benign prostatic hyperplasia) Fatty liver Renal calculi Adrenal adenoma GERD (gastroesophageal reflux disease) Hypercholesterolemia Coronary artery disease Overweight (BMI 25.0-29.9) Type 2 diabetes mellitus with hyperglycemia Surgical History Hx of hand surgery History of transurethral resection of prostate History of esophagogastroduodenoscopy (EGD) H/O colonoscopy Hx of heart artery stent 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 History of nephrolithiasis History of prostate surgery History of arthroscopy of left shoulder History of tonsillectomy Family History Father Diabetes Hypertension CVD (cardiovascular disease) Mother Diabetes Social History Household Members: Family Housing: House Are you a primary medicare nurse to a significant other at home: No Do you presently have visiting nurse or other home services: No Alcohol intake: never Patient Tobacco Use Status: Former Tobacco user Tobacco use type: Cigarette Cigarette Packs Per Day: 1.5 e-Cigarette/Vaping Use: Never Used Second Hand Smoke Exposure: Yes service: No Current occupational status: retired Cognitive needs: Yes (cane) Hearing needs: No Vision needs: Yes (perscription glasses) Physical Exam Vital Signs: BMI result Body Mass Index 23.5 Const Other: Well-nourished well-developed very friendly male awake alert and oriented x3 in no acute distress Extrem Other: 4-/5 empty can on the right. Full passive range of motion. Results Reviewed Results Reviewed: I personally reviewed the MR images. Large full-thickness retracted tears of the supraspinatus and infraspinatus tendons with tendon retracted to the superior margin of the humeral head. Tear at approximately 2 x 3.5 cm in length and width. Severe tendinosis and articular surface partial tear of the subscapularis tendon. Bursal surface fibers intact. Atrophic subscapularis muscle. No significant volume loss or fatty infiltration of the remaining cuff muscles. Severe tendinosis and high-grade partial tear suggested of the intra-articular biceps with interstitial tear component of the extra-articular biceps. Mild medial subluxation of the tendon. Reactive marrow edema in the anterior humeral head. Degenerative tear of the posterior labrum with small paralabral cyst. Small joint effusion freely extending to the subdeltoid subacromial bursa. Assessment & Plan Assessment & Plan (1) Rotator cuff tear, right: Code(s): M75.101 - Unspecified rotator cuff tear or rupture of right shoulder, not specified as traumatic Category: Medical Plan: This is an 79-year-old gentleman with a large rotator cuff tear on the right. He is not a candidate for arthroplasty given his comorbidities and uncontrolled hemoglobin A1c. It is reasonable however to consider a rotator cuff repair. There is some retraction of the superior cuff but less so in the supraspinatus and the infraspinatus and I suspect that this may be repairable. He will need to be cleared medically given his diabetes and chronic kidney disease. He underwent a similar surgery on the contralateral side many years ago and did well. I explained the surgery to him. He asked appropriate questions and I explained the risks, benefits and alternatives. I think it is reasonable to attempt rotator cuff repair because I do not think a arthroplasty is in the cards for this gentleman. He understands this and would like to proceed forward accordingly. Coding Level of Care Code Est Pt Level 4 (86616) Diagnoses Rotator cuff tear, right M75.101
[2025-05-30 09:42] VITALS: BMI 23.5
== END 2025-05-30 10:04 | disposition home or self-care (01) ==
LOC: HO.HOS 09:36
PROVIDERS: PCP Internal Medicine; Visit Provider Orthopaedic Surgery
DX: M75.101 Unspecified rotator cuff tear or rupture of right shoulder, not specified as traumatic (principal)
CPT/HCPCS: 99214

== ENCOUNTER → 2025-05-30 09:36 | Outpatient (BNVA) | payer OTHER, SELFPAY | PROVIDERS: PCP Internal Medicine; Visit Provider Orthopaedic Surgery | DX: M25.511 Pain in right shoulder (principal); M75.101 Unspecified rotator cuff tear or rupture of right shoulder, not specified as traumatic | CPT/HCPCS: 99212 ==

== ENCOUNTER 2025-06-03 08:43 | Outpatient (AMB) | payer OTHER, SELFPAY ==
--- OUTSIDE RECORDS SUMMARY | 2025-06-03 08:46 | XMS_ITS | Patient Health Record ---
Author Organization [facility] Address [address] [place] [address] Care Team Providers Care Clinical Statistics Manager Name Role Phone Aaron Collazo MD Primary Care Provider Elbert Hanson [phone] Allergies Allergen (clinical drug ingredient) Drug/Non Drug [...] Problem Status W/U Status Risk Notes Problem [id number] Encounter for screening for malignant neoplasm of colon (Z12.11) Active confirmed Problem Screening for malignant neoplasm of rectum (095212178) Encounter for screening for malignant neoplasm of rectum (Z12.12) Active confirmed Problem Iron deficiency anemia (13026284) Iron deficiency anemia (D50.9) Active confirmed Problem 982894971 Gastroesophageal reflux disease without esophagitis (K21.9) Active confirmed Problem 113876374 Long-term use of aspirin therapy (Z79.82) Active confirmed Problem Gastritis (9150720) Gastritis (K29.70) Active c onfirmed Problem Gastroesophageal reflux disease (625149785) GERD (gastroesophageal reflux disease) (K21.9) Active confirmed Problem 468979139 Hx of adenomatou s colonic polyps (Z86.010) Active confirmed Problem Diverticulosis of colon (700148663) Diverticulosis of colon (K57.30) Active confirmed Plan Of Treatment Future Test Test Name Order Date COLONOSCOPY 03/09/2019 UPPER GI ENDOSCOPY 06/05/2022 COLONOSCOPY 06/05/2022 Insurance Providers Payer Name Payer Address Payer Phone Subscriber Number Group Number Insured Name Patient Relationship to Insured Coverage Start Date Coverage End Date MEDICARE OF [place] [address] [place] [address] [id number] MAGDY KLEIN Self - patient is the insured MEDICAID OF [facility] [address] [place] [address] [phone] [id number] MAGDY KLEIN Self - patient is the insured Medical (General) History Medical History History ICD Code 10/20/2008 colonoscopy--- ne gative except for diverticulosis and internal hemorrhoids Coronary artery disease--[address] Will--most recent was in approx 2007 NIDDM Hypertension History of kidney stones Denies [place],CVA,Lung disease,renal disease GERD--EGD with Dr. Bruce in [...]
[2025-06-03 08:50] VITALS: BP 116/76; PULSE 81; TEMP 36.2; O2SAT 96; BMI 23.2
--- NOTE | 2025-06-03 08:50 | A.OFFPC_ITS ---
Vital Signs 06/03/25 08:50 Height 5 ft 9 in Weight 157 lb 6 oz BMI 23.2 BP 116/76 Blood Pressure Location Lt brachial Position Sitting Pulse 81 Pulse Source Pulse Oximeter Temp 97.1 F Temp Source Temporal Artery Scan Pulse Oximetry (%) 96 Oxygen Delivery Method Room Air Intake Visit Reasons: Rt Rotator Cuff Repair on 07/27/[address] Godfrey Allergies lisinopril Allergy (Mild, Verified 06/03/25 08:51) Cough Penicillins Allergy (Mild, Verified 06/03/25 08:51) RASH linagliptin (Tradjenta) Adverse Reaction (Mild, Verified 06/03/25 08:51) diarrhea Tobacco use date assessed: 06/03/25 Fall risk assessment: No Falls in past year Last assessed Fall Risk: 06/03/25 Dental Screening Dental Screen Date: 06/03/25 Did you have a dental visit in the last 12 months?: Yes Did you have a dental problem in the last 6 months where you did not have access to dental care?: No Was dental information given to patient?: Patient has dentist [facility] Medical History Headache Iron deficiency anemia HTN (hypertension) Weight loss Acute bronchitis Sciatic nerve palsy, left Chest pain Burning chest pain Left shoulder pain Constipation Foul smelling urine BPH (benign prostatic hyperplasia) Fatty liver Renal calculi Adrenal adenoma GERD (gastroesophageal reflux disease) Hypercholesterolemia Coronary artery disease Overweight (BMI 25.0-29.9) Type 2 diabetes mellitus with hyperglycemia Surgical History Hx of hand surgery History of transurethral resection of prostate History of esophagogastroduodenoscopy (EGD) H/O colonoscopy Hx of heart artery stent 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 History of nephrolithiasis History of prostate surgery History of arthroscopy of left shoulder History of tonsillectomy Family History Father Diabetes Hypertension CVD (cardiovascular disease) Mother Diabetes Social History Household Members: Family Housing: House Are you a primary customer care voice consultant to a significant other at home: No Do you presently have visiting nurse or other home services: No Alcohol intake: never Patient Tobacco Use Status: Former Tobacco user Tobacco use type: Cigarette Cigarette Packs Per Day: 1.5 e-Cigarette/Vaping Use: Never Used Second Hand Smoke Exposure: Yes service: No Current occupational status: retired Cognitive needs: Yes (cane) Hearing needs: No Vision needs: Yes (perscription glasses) Questionnaire PHQ-9 Over the last 2 weeks, how often have you been bothered by any of the following problems? 1. Little interest or pleasure in doing things: not at all 2. Feeling down, depressed, or hopeless: not at all 3. Trouble falling or staying asleep, or sleeping too much: not at all 4. Feeling tired or having little energy: not at all 5. Poor appetite or overeating: not at all 6. Feeling bad about yourself - or that you are a failure or have let yourself or your family down: not at all 7. Trouble concentrating on things, such as reading the newspaper or watching television: not at all 8. Moving or speaking so slowly that other people could have noticed. Or the opposite - being so fidgety or restless that you have been moving around a lot more than usual: not at all 9. Thoughts that you would be better off or of hurting yourself in some way: not at all Total score: 0 Depression Screening Interpretation: Negative Depression Screening Done: Yes Source: Developed by Drs. Elbert Boogie, Estehr Hilliard, Anurag Gupta and colleagues, with an educational elfego from [employer]. Thrive Questionnaire Date Thrive assessed: 12/28/24 I am a: Patient What is your living situation today?: I have a steady place to live Within the past 12 months, did the food you bought not last and you didn't have the money to get more?: Never true Within the past 12 months, did you worry whether your food would run out before you got money to buy more?: Never true Do you have trouble paying for medicines?: No Do you have trouble getting transportation to medical appointments?: No Do you have trouble paying your heating and electricity bill?: No Do you have trouble taking care of your child, family member or friend?: No Do you have trouble with day-to-day activities such as bathing, preparing meals, shopping, managing finances, etc.?: No Are you currently unemployed and looking for a job?: No Are you interested in more education?: No Please select the resources that you would like help with: None Currently or been in a relationship where the following occur: No concerns reported THRIVE Score: 0 AUDIT C Alcohol Use Questionnaire (AUDIT-C) 1. How often do you have a drink containing alcohol?: Never 3. How often do you have six or more drinks on one occasion?: Never Total Score: 0 TRINH-7 AMB Questionnaire TRINH-7 Date TRINH - 7 assessed: 12/28/24 Feeling nervous, anxious, or on edge: 0 = Not at all Not being able to stop or control worryin = Not at all Worrying too much about different things: 0 = Not at all Trouble relaxin = Not at all Being so restless that it is hard to sit still: 0 = Not at all Becoming easily annoyed or irritable: 0 = Not at all Feeling afraid as if something awful might happen: 0 = Not at all Total TRINH-7 score (0-4 normal; 5-9 mild; 10-14 moderate; 15-21 severe): 0 Source: Developed by Drs. Elbert Boogie, Esther Hilliard, Anurag Gupta and colleagues, with an educational elfego from [employer]. Physical exam (Primary Care) Vital Signs: Last Vital Signs Temp 97.1 F 06/03/25 08:50 Pulse 81 06/03/25 08:50 BP 116/76 06/03/25 08:50 Pulse Ox 96 06/03/25 08:50 Oxygen Delivery Method Room Air 06/03/25 08:50 BMI result Body Mass Index 23.2 Tobacco/Smoking Status: Tobacco use Status Tobacco use date assessed 06/03/25 06/03/25 08:58 Patient Tobacco Use Status Former Tobacco user 06/03/25 08:58 Tobacco use type Cigarette 06/03/25 08:58 e-Cigarette/Vaping Use Never Used 06/03/25 08:58 PHQ-9: PHQ-9 Score PHQ-9: Total score 0 06/03/25 09:22 Depression Screening Interpretation: Negative Thrive Assessment: Date of Thrive Assessment Date Thrive assessed 12/28/24 06/03/25 08:58 Currently or been in a relationship where the following occur: No concerns reported Const General: alert; No acute distress Eyes Conjunctivae: conjunctivae normal Resp Auscultation: clear to auscultation bilaterally Cardio Rate: regular rate Rhythm: regular rhythm GI Inspection: Yes normal to inspection Extrem General: Yes normal to inspection and No edema Results AMB Hemoglobin A1c AMB Hemoglobin A1c 8.3 % Last Edit by Rissa Child CMA on 06/03/25 09:02 Results Reviewed Results Reviewed: Laboratory Last Values Hgb A1c (Clinic) 8.3 % (4.0-6.0) H 06/03/25 08:58 Coding Level of Care Code Est Pt Level 4 (43863) Complex EM visit Add On G2211 Diagnoses Type 2 diabetes mellitus with hyperglycemia, without long-term current use of insulin E11.65 Diabetes mellitus termite control servicer insulin use: without termite control servicer use HTN (hypertension) I10 Coronary artery disease involving [place] coronary artery of [place] heart without angina pectoris I25.10 Associated angina: without angina Coronary Disease-Associated Artery/Lesion type: [place] artery [place] vs. transplanted heart: [place] heart Hypercholesterolemia E78.00 Gastroesophageal reflux disease without esophagitis K21.9 Esophagitis presence: without esophagitis CKD (chronic kidney disease) stage 3, GFR 30-59 ml/min N18.30 Rotator cuff insufficiency of right shoulder M25.311 Assessment & Plan Assessment & Plan (1) Type 2 diabetes mellitus with hyperglycemia: Comment: [facility] exam Code(s): E11.65 - Type 2 diabetes mellitus with hyperglycemia Category: Medical Qualifiers: Diabetes mellitus retirement insulin use: without retirement use Qualified Code(s): E11.65 - Type 2 diabetes mellitus with hyperglycemia Plan: Control the cholesterol, weight, blood pressure, diabetes hemoglobin A1c goal of less than 7.0. Patient is on Trulicity 3 mg once a week Jardiance 25 mg once a day glipizide at 10 mg once a day (2) HTN (hypertension): Code(s): I10 - Essential (primary) hypertension Category: Medical Plan: Continue with blood pressure medication. Decrease salt intake and exercise takes metoprolol 25 mg twice a day on isosorbide mononitrate furosemide 20 mg once a day (3) Coronary artery disease: Comment: CABG August [address] Rhodes Code(s): I25.10 - Atherosclerotic heart disease of [place] coronary artery without angina pectoris Category: Medical Qualifiers: Associated angina: without angina Coronary Disease-Associated Artery/Lesion type: [place] artery [place] vs. transplanted heart: [place] heart Qualified Code(s): I25.10 - Atherosclerotic heart disease of [place] coronary artery without angina pectoris (4) Hypercholesterolemia: Code(s): E78.00 - Pure hypercholesterolemia, unspecified Category: Medical Plan: Control the cholesterol, weight, blood pressure, diabetes patient is on aspirin 81 mg once a day (5) GERD (gastroesophageal reflux disease): Code(s): K21.9 - Gastro-esophageal reflux disease without esophagitis Category: Medical Qualifiers: Esophagitis presence: without esophagitis Qualified Code(s): K21.9 - Gastro-esophageal reflux disease without esophagitis Plan: Avoid the foods that causes that usually spicy foods, tomato products, juices, coffee, soda and foods that your sensitive to. After eating do not lie down, allow 3-4 hours before in lie down. And keep the head of bed above 30 degrees to avoid the acid from going up. (6) CKD (chronic kidney disease) stage 3, GFR 30-59 ml/min: Code(s): N18.30 - Chronic kidney disease, stage 3 unspecified Category: Medical Plan: Keep well hydrated avoid NSAIDs (7) Rotator cuff insufficiency of right shoulder: Code(s): M25.311 - Other instability, right shoulder Category: Medical Plan: Patient has a planned rotator cuff repair. Diabetes though is a problem and will be seeing Cardiology for clearance also. Plan History of Present Illness The patient is an 79-year-old male presenting for a pre-operative evaluation for rotator cuff repair surgery. The patient has a history of diabetes mellitus, which requires management to ensure surgical clearance. His hemoglobin A1c is elevated at 8.3, indicating suboptimal glycemic control. He is currently on Trulicity, Jardiance, and glipizide to manage his diabetes, with a target A1c of less than 7.0. The patient also has a history of hypercholesterolemia, with the last LDL measurement being 52 mg/dL in September 2024. He is on a regimen that includes aspirin for cardiovascular protection. The patient has chronic kidney disease, with a stable creatinine level of 1.23. He also has hypertension, managed with metoprolol, isosorbide mononitrate, and furosemide. The patient has a history of anemia, with mild anemia noted in December with hemoglobin at 13.1 and hematocrit at 39.6, which is chronic. He has a history of central retinal vein occlusion and generalized anxiety disorder, which are part of his chronic conditions. The patient is scheduled for rotator cuff repair surgery on July 27, having been evaluated by orthopedics. The surgery is planned as a repair rather than an arthroplasty. Health Maintenance - Up to date with colonoscopy Social History Review of Systems Physical Exam Results - Labs: Hemoglobin A1c 8.3, creatinine 1.23, LDL 52 mg/dL (September 2024), hemoglobin 13.1, hematocrit 39.6 Plan The patient's diabetes management is crucial for surgical clearance, with a goal to reduce hemoglobin A1c to below 7.0. He is currently on a regimen of Trulicity, Jardiance, and glipizide to achieve this target. For hypertension, the patient is on metoprolol, isosorbide mononitrate, and furosemide to maintain blood pressure control. The patient will also be seeing cardiology for clearance prior to surgery. The patient is scheduled for rotator cuff repair surgery on July 27, with orthopedics opting for repair rather than arthroplasty. Pre-operative evaluations are ongoing to ensure all conditions are optimized for surgery. Patient was informed and verbally consented to the use of an ambient scribe for clinic note documentation during this visit. Discussion Notes Patient Instructions Orders: Orders AMB Hemoglobin A1c Today Z13.9 - Encounter for screening, unspecified Referrals Urology Referral N40.0 - Benign prostatic hyperplasia without lower urinary tract symptoms Medications: Refilled empagliflozin 25 mg PO DAILY 90 tabs 4RF E11.65 - Type 2 diabetes mellitus with hyperglycemia glipizide ER 10 mg PO DAILY 90 tabs 2RF E11.65 - Type 2 diabetes mellitus with hyperglycemia
== END 2025-06-03 09:42 | disposition home or self-care (01) ==
LOC: HO.HMCH 08:43
PROVIDERS: PCP Internal Medicine; Visit Provider Internal Medicine
DX: E11.65 Type 2 diabetes mellitus with hyperglycemia (principal); I12.9 Hypertensive chronic kidney disease with stage 1 through stage 4 chronic kidney disease, or unspecified chronic kidney disease; N18.30 Chronic kidney disease, stage 3 unspecified; I25.10 Atherosclerotic heart disease of native coronary artery without angina pectoris; E78.00 Pure hypercholesterolemia, unspecified; K21.9 Gastro-esophageal reflux disease without esophagitis; M25.311 Other instability, right shoulder

== ENCOUNTER → 2025-06-03 08:43 | Outpatient (BNVA) | payer OTHER, SELFPAY | PROVIDERS: PCP Internal Medicine; Visit Provider Internal Medicine | DX: E11.65 Type 2 diabetes mellitus with hyperglycemia (principal); I25.10 Atherosclerotic heart disease of native coronary artery without angina pectoris; E78.00 Pure hypercholesterolemia, unspecified; K21.9 Gastro-esophageal reflux disease without esophagitis; I12.9 Hypertensive chronic kidney disease with stage 1 through stage 4 chronic kidney disease, or unspecified chronic kidney disease; N18.30 Chronic kidney disease, stage 3 unspecified; M25.311 Other instability, right shoulder; Z79.82 Long term (current) use of aspirin; Z79.84 Long term (current) use of oral hypoglycemic drugs; Z95.1 Presence of aortocoronary bypass graft; Z13.31 Encounter for screening for depression | CPT/HCPCS: 83036; 96127; 99212 ==

== ENCOUNTER 2025-06-20 09:41 | Outpatient (AMB) | payer OTHER, SELFPAY ==
--- NOTE | 2025-06-20 10:05 | A.OFFVIS_ITS ---
Vital Signs 06/20/25 10:06 Height 5 ft 9 in Weight 157 lb 13.616 oz BMI 23.3 BP 100/52 L Blood Pressure Location Lt brachial Position Sitting Pulse 78 Pulse Source Monitor Intake Visit Reasons: r/s 06/09preop rtc repair on 07/27 w/dr. peter Nib Inspector Required: No Allergies lisinopril Allergy (Mild, Verified 06/20/25 10:09) Cough Penicillins Allergy (Mild, Verified 06/20/25 10:09) RASH linagliptin (Tradjenta) Adverse Reaction (Mild, Verified 06/20/25 10:09) diarrhea Medication List - Last Reconciled 06/20/25 by GENIA House ascorbic acid (vitamin C) (Vitamin C) 500 mg PO BID 90 days aspirin 81 mg PO DAILY blood sugar diagnostic As directed blood sugar diagnostic ([employer] Ultra Test strips) As directed check bs BID blood sugar diagnostic As directed check blood sugar 2 times a day bupropion HCl XL (Wellbutrin XL) 150 mg PO QAM cholecalciferol (vitamin D3) 25 mcg PO DAILY cyclobenzaprine 10 mg PO BEDTIME PRN dulaglutide (Trulicity) 3 mg (0.5 mL) subcut QWEEK empagliflozin 25 mg PO DAILY finasteride (Proscar) 5 mg PO DAILY 90 days furosemide 20 mg PO DAILY 90 days glipizide ER 10 mg PO DAILY hydroxyzine HCl 10 mg PO BEDTIME PRN isosorbide mononitrate ER 30 mg PO DAILY lidocaine 5% 2 patches topical DAILY magnesium oxide 400 mg PO DAILY metoprolol tartrate 25 mg PO BID 90 days omeprazole 20 mg PO QAM potassium chloride ER 20 mEq PO DAILY rosuvastatin 40 mg PO DAILY triamcinolone acetonide 0.5% 1 appl topical BID vitamin B complex (B Complex-Vitamin B12 tablet) 1 tab PO DAILY vitamin E (dl, acetate) 100 units PO DAILY [walking cane As directed] zinc acetate 25 mg PO DAILY HPI HPI r/s 06/09preop rtc repair on 07/27 w/dr. peter: Details: Calderon is a 79-year-old male with past medical history of hyperlipidemia, diabetes, peripheral vascular disease, coronary artery disease with coronary stents followed by coronary artery bypass grafting 5 years ago who presents for preop cardiovascular clearance for rotator cuff surgery. Today he reports that he has been having significant discomfort from his right shoulder. He is scheduled to undergo rotator cuff surgery 07/27/2025. He tells me that his heart is doing good. He has no chest discomfort at rest or with activity. He denies shortness of breath, palpitations, dizziness, presyncope, syncope, PND, orthopnea or edema. He still has some fatigue but relates it to the pain he is experiencing. Has been trying to walk routinely. Compliant with all medications. [facility] Medical History Headache Iron deficiency anemia HTN (hypertension) Weight loss Acute bronchitis Sciatic nerve palsy, left Chest pain Burning chest pain Left shoulder pain Constipation Foul smelling urine BPH (benign prostatic hyperplasia) Fatty liver Renal calculi Adrenal adenoma GERD (gastroesophageal reflux disease) Hypercholesterolemia Coronary artery disease Overweight (BMI 25.0-29.9) Type 2 diabetes mellitus with hyperglycemia Surgical History Hx of hand surgery History of transurethral resection of prostate History of esophagogastroduodenoscopy (EGD) H/O colonoscopy Hx of heart artery stent 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 History of nephrolithiasis History of prostate surgery History of arthroscopy of left shoulder History of tonsillectomy Family History Father Diabetes Hypertension CVD (cardiovascular disease) Mother Diabetes Social History Household Members: Family Housing: House Are you a primary care coordinator to a significant other at home: No Do you presently have visiting nurse or other home services: No Alcohol intake: never Patient Tobacco Use Status: Former Tobacco user Tobacco use type: Cigarette Cigarette Packs Per Day: 1.5 e-Cigarette/Vaping Use: Never Used Second Hand Smoke Exposure: Yes service: No Current occupational status: retired Cognitive needs: Yes (cane) Hearing needs: No Vision needs: Yes (perscription glasses) Review of Systems Const All systems reviewed & are unremarkable except as noted in HPI and below ENT Denies dizziness Card Denies chest pain, Denies chest pain at rest, Denies chest pain with activity, Denies rapid heart rate, Denies pedal edema, Denies edema, Denies leg edema, Denies lightheadedness, Denies palpitations, Denies dyspnea, Denies dyspnea on exertion and Denies orthopnea Resp Denies cough, Denies dyspnea and Denies dyspnea on exertion GI Denies hematochezia and Denies change in stool character Musc Details: right shoulder discomfort Denies abnormal gait, Reports limited range of motion, Reports muscle cramps, Denies muscle weakness, Denies numbness, Denies radiating pain into limb, Denies stiffness and Denies tingling Neuro Denies abnormal gait, Denies dizziness, Denies numbness and Denies tingling Endo Denies palpitations Physical Exam Vital Signs: Last Vital Signs Pulse 78 06/20/25 10:06 BP 100/52 L 06/20/25 10:06 BMI result Body Mass Index 23.3 Const General: cooperative, healthy appearing and no acute distress Orientation/consciousness: patient oriented x3 Neck Neck: Yes normal visual inspection Resp Effort & Inspection: normal respiratory effort Auscultation: clear to auscultation bilaterally, no rales, no rhonchi and no wheezes Cardio Rate: regular rate Rhythm: regular rhythm Heart sounds: S1 normal heart sound present, S2 normal heart sound present, no gallops, no murmurs and no rubs Neuro General: patient oriented x3 Extrem General: Yes normal to inspection and No no pedal edema Psych Appearance: grossly normal Mental Status: mental status grossly normal Speech and movement: Normal speech and movement present Office Procedures EKG Details: Today read by me, normal sinus rhythm, left axis deviation, rate 78, QTC 440 milliseconds [id number], Complete Assessment & Plan Assessment & Plan (1) Coronary artery disease: Comment: CABG August [address] Rhodes Code(s): I25.10 - Atherosclerotic heart disease of [place] coronary artery without angina pectoris Category: Medical Qualifiers: Coronary Disease-Associated Artery/Lesion type: [place] artery [place] vs. transplanted heart: [place] heart Associated angina: without angina Qual ified Code(s): I25.10 - Atherosclerotic heart disease of [place] coronary artery without angina pectoris Plan: History of CAD with 4 vessel Coronary artery bypass grafting 2019. He had been following with Dr. Cabrera prior to his assisted then [facility] and changed to our office 1.5 year ago. An echocardiogram done 06/12/2023 showed EF 55-60%, with regional wall motion abnormality consistent with CAD, basal inferior and basal inferior septum hypokinesis. Nuclear stress test done 02/28/2025 showed normal myocardial perfusion imaging. EKG today shows sinus rhythm, left axis deviation, rate 78. No reports of angina. Continue aspirin indefinitely. Continue rosuvastatin 40 mg daily with ideal LDL goal less than 70. Labs done 09/29/2024 showed LDL 52. Continue metoprolol, isosorbide. Signs and symptoms of angina reviewed. Cardiology follow-up 6 months, sooner if needed (2) Type 2 diabetes mellitus with hyperglycemia: Comment: [facility] Eye exam Code(s): E11.65 - Type 2 diabetes mellitus with hyperglycemia Category: Medical Qualifiers: Diabetes mellitus termite inspector insulin use: without jail use Qualified Code(s): E11.65 - Type 2 diabetes mellitus with hyperglycemia Plan: Hemoglobin A1c goal less than 7. Followed by his PCP. (3) Hypercholesterolemia: Code(s): E78.00 - Pure hypercholesterolemia, unspecified Category: Medical Plan: [place] LDL goal less than 70. Continue rosuvastatin 40 mg daily. (4) Preop cardiovascular exam: Code(s): Z01.810 - Encounter for preprocedural cardiovascular examination Category: Medical Plan: Preop for right rotator cuff surgery. He can proceed with intermediate cardiac risk. Aspirin can be held for the procedure as needed and restart as soon as cleared by surgeon to do so. Continue rosuvastatin, isosorbide, metoprolol. Call/consult Cardiology if needed. Plan Time spent on chart review, documentation, interview and assessment Coding Level of Care Code Est Pt Level 4 (34307) Diagnoses Coronary artery disease involving [place] coronary artery of [place] heart without angina pectoris I25.10 Coronary Disease-Associated Artery/Lesion type: [place] artery [place] vs. transplanted heart: [place] heart Associated angina: without angina Type 2 diabetes mellitus with hyperglycemia, without long-term current use of insulin E11.65 Diabetes mellitus jail insulin use: without termite inspector use Hypercholesterolemia E78.00 Preop cardiovascular exam Z01.810 CPT Codes EKG - CPT: [id number], Complete ([id number]) Time Spent (min) 28
[2025-06-20 10:06] VITALS: BP 100/52; PULSE 78; BMI 23.3
--- OUTSIDE RECORDS SUMMARY | 2025-06-20 10:15 | XMS_ITS | Patient Health Record ---
Author Organization [facility] Address [address] [place] [address] Care Team Providers Care Supply Chain Development Manager Name Role Phone Aaron Collazo MD Primary Care Provider Elbert Hanson [phone] Allergies Allergen (clinical drug ingredient) Drug/Non Drug [...] Problem Status W/U Status Risk Notes Problem [id number] Encounter for screening for malignant neoplasm of colon (Z12.11) Active confirmed Problem Screening for malignant neoplasm of rectum (118116402) Encounter for screening for malignant neoplasm of rectum (Z12.12) Active confirmed Problem Iron deficiency anemia (67524224) Iron deficiency anemia (D50.9) Active confirmed Problem [id number] Gastroesophageal reflux disease without esophagitis (K21.9) Active confirmed Problem 004115753 Long-term use of aspirin therapy (Z79.82) Active confirmed Problem Gastritis (6466486) Gastritis (K29.70) Active c onfirmed Problem Gastroesophageal reflux disease (230358160) GERD (gastroesophageal reflux disease) (K21.9) Active confirmed Problem 006169732 Hx of adenomatou s colonic polyps (Z86.010) Active confirmed Problem Diverticulosis of colon (245614468) Diverticulosis of colon (K57.30) Active confirmed Plan Of Treatment Future Test Test Name Order Date COLONOSCOPY 03/09/2019 UPPER GI ENDOSCOPY 06/05/2022 COLONOSCOPY 06/05/2022 Insurance Providers Payer Name Payer Address Payer Phone Subscriber Number Group Number Insured Name Patient Relationship to Insured Coverage Start Date Coverage End Date MEDICARE OF [place] [address] [place] [address] [id number] MAGDY KLEIN Self - patient is the insured MEDICAID OF [facility] [address] [place] [address] [id number] MAGDY KLEIN Self - patient is the insured Medical (General) History Medical History History ICD Code 10/20/2008 colonoscopy--- ne gative except for diverticulosis and internal hemorrhoids Coronary artery disease--[address] Will--most recent was in approx 2007 NIDDM Hypertension History of kidney stones Denies NM,CVA,Lung disease,renal disease GERD--EGD with Dr. Bruce in [...]
== END 2025-06-20 11:10 | disposition home or self-care (01) ==
LOC: HO.HCS 09:42
PROVIDERS: PCP Internal Medicine; Visit Provider Nurse Practitioner Family
DX: I25.10 Atherosclerotic heart disease of native coronary artery without angina pectoris (principal); E11.65 Type 2 diabetes mellitus with hyperglycemia; E78.00 Pure hypercholesterolemia, unspecified; Z01.810 Encounter for preprocedural cardiovascular examination
CPT/HCPCS: 93010; 99214

== ENCOUNTER → 2025-06-20 09:41 | Outpatient (BNVA) | payer OTHER, SELFPAY | PROVIDERS: PCP Internal Medicine; Visit Provider Nurse Practitioner Family | DX: Z01.810 Encounter for preprocedural cardiovascular examination (principal); I25.10 Atherosclerotic heart disease of native coronary artery without angina pectoris; E11.65 Type 2 diabetes mellitus with hyperglycemia; E78.00 Pure hypercholesterolemia, unspecified | CPT/HCPCS: 93005; 99212 ==

== ENCOUNTER 2025-08-19 09:44 | Outpatient (AMB) | payer OTHER, SELFPAY ==
--- NOTE | 2025-08-19 09:52 | A.OFFPC_ITS ---
Vital Signs 08/19/25 09:53 Height 5 ft 8 in Weight 159 lb BMI 24.2 BP 130/62 Blood Pressure Location Lt brachial Position Sitting Pulse 79 Pulse Source Pulse Oximeter Pulse Oximetry (%) 97 Oxygen Delivery Method Room Air Intake Visit Reasons: DM, TRINH Allergies lisinopril Allergy (Mild, Verified 08/19/25 09:53) Cough Penicillins Allergy (Mild, Verified 08/19/25 09:53) RASH linagliptin (Tradjenta) Adverse Reaction (Mild, Verified 08/19/25 09:53) diarrhea Tobacco use date assessed: 06/03/25 Fall risk assessment: No Falls in past year Last assessed Fall Risk: 08/19/25 Dental Screening Dental Screen Date: 06/03/25 [facility] Medical History (Updated 07/11/25 @ 09:08 by Anita Hawkins RN) Chronic renal insufficiency Headache Iron deficiency anemia HTN (hypertension) Sciatic nerve palsy, left Left shoulder pain Constipation BPH (benign prostatic hyperplasia) Fatty liver Renal calculi Adrenal adenoma GERD (gastroesophageal reflux disease) Hypercholesterolemia Coronary artery disease Overweight (BMI 25.0-29.9) Type 2 diabetes mellitus with hyperglycemia Surgical History Hx of hand surgery History of transurethral resection of prostate History of esophagogastroduodenoscopy (EGD) H/O colonoscopy Hx of heart artery stent 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 History of nephrolithiasis History of prostate surgery History of arthroscopy of left shoulder History of tonsillectomy Family History Father Diabetes Hypertension CVD (cardiovascular disease) Mother Diabetes Social History Household Members: Family Housing: House Are you a primary child care lead teacher to a significant other at home: No Do you presently have visiting nurse or other home services: No Alcohol intake: never Patient Tobacco Use Status: Former Tobacco user Tobacco use type: Cigarette Cigarette Packs Per Day: 1.5 e-Cigarette/Vaping Use: Never Used Second Hand Smoke Exposure: Yes service: No Current occupational status: retired Cognitive needs: Yes (cane) Hearing needs: No Vision needs: Yes (perscription glasses) Questionnaire Thrive Questionnaire Date Thrive assessed: 12/28/24 TRINH-7 AMB Questionnaire TRINH-7 Date TRINH - 7 assessed: 12/28/24 Source: Developed by Drs. Elbert Boogie, Esther Hilliard, Anurag Gupta and colleagues, with an educational elfego from [employer]. Physical exam (Primary Care) Vital Signs: Last Vital Signs Pulse 79 08/19/25 09:53 BP 130/62 08/19/25 09:53 Pulse Ox 97 08/19/25 09:53 Oxygen Delivery Method Room Air 08/19/25 09:53 BMI result Body Mass Index 24.2 Tobacco/Smoking Status: Tobacco use Status Tobacco use date assessed 06/03/25 08/19/25 09:53 Patient Tobacco Use Status Former Tobacco user 08/19/25 09:53 Tobacco use type Cigarette 08/19/25 09:53 e-Cigarette/Vaping Use Never Used 08/19/25 09:53 Thrive Assessment: Date of Thrive Assessment Date Thrive assessed 12/28/24 08/19/25 09:53 Const General: alert; No acute distress Eyes Conjunctivae: conjunctivae normal Resp Auscultation: clear to auscultation bilaterally Cardio Rate: regular rate Rhythm: regular rhythm GI Inspection: Yes normal to inspection Extrem General: Yes normal to inspection and No edema Results AMB Hemoglobin A1c AMB Hemoglobin A1c 7.1 % Last Edit by Allegra Colon CMA on 08/19/25 10 :06 Results Reviewed Results Reviewed: Laboratory Last Values Hgb A1c (Clinic) 7.1 % (4.0-6.0) H 08/19/25 09:54 Coding Level of Care Code Est Pt Level 4 (46988) Complex EM visit Add On G2211 Diagnoses Type 2 diabetes mellitus with hyperglycemia, without long-term current use of insulin E11.65 Diabetes mellitus superintendent container terminal insulin use: without senior care use Coronary artery disease involving [place] coronary artery of [place] heart without angina pectoris I25.10 Associated angina: without angina Coronary Disease-Associated Artery/Lesion type: [place] artery [place] vs. transplanted heart: [place] heart Hypercholesterolemia E78.00 HTN (hypertension) I10 CKD (chronic kidney disease) stage 3, GFR 30-59 ml/min N18.30 Rotator cuff tear, right M75.101 Assessment & Plan Assessment & Plan (1) Type 2 diabetes mellitus with hyperglycemia: Comment: [facility] Eye exam Code(s): E11.65 - Type 2 diabetes mellitus with hyperglycemia Category: Medical Qualifiers: Diabetes mellitus superintendent container terminal insulin use: without superintendent container terminal use Qualified Code(s): E11.65 - Type 2 diabetes mellitus with hyperglycemia Plan: Decrease the amount of carbohydrate intake, pasta, bread, rice and potatoes are all sugar and that is aside from all the sweet stuff, remember that fruits are good but they are Sweet also. Hemoglobin A1c goal of less than 7.0. Patient is presently on Trulicity 3 mg once a week Jardiance 25 mg once a day glipizide 10 mg once a day. With the hemoglobin A1c down patient can proceed with having the surgery done for the right shoulder (2) Coronary artery disease: Comment: CABG August [address] Rhodes Code(s): I25.10 - Atherosclerotic heart disease of [place] coronary artery without angina pectoris Category: Medical Qualifiers: Associated angina: without angina Coronary Disease-Associated Artery/[place] type: [place] artery [place] vs. transplanted heart: [place] heart Qualified Code(s): I25.10 - Atherosclerotic heart disease of [place] coronary artery without angina pectoris Plan: Control the cholesterol, weight, blood pressure, diabetes continue with aspirin 81 mg once a (3) Hypercholesterolemia: Code(s): E78.00 - Pure hypercholesterolemia, unspecified Category: Medical Plan: Avoid fried foods, chicken skin, eggs, butter margarine, pastries and meat. Be it pork or beef they have a lot of cholesterol LDL goal of less than 70 and triglyceride of less than 150. Last blood work was done in September 2024. (4) HTN (hypertension): Code(s): I10 - Essential (primary) hypertension Category: Medical Plan: Continue with blood pressure medication. Decrease salt intake and exercise continue with isosorbide mononitrate metoprolol 25 mg twice a day (5) CKD (chronic kidney disease) stage 3, GFR 30-59 ml/min: Code(s): N18.30 - Chronic kidney disease, stage 3 unspecified Category: Medical Plan: Avoid NSAID, keep well hydrated (6) Rotator cuff tear, right: Code(s): M75.101 - Unspecified rotator cuff tear or rupture of right shoulder, not specified as traumatic Category: Medical Plan: Surgery postponed until we can get the diabetes under control. Plan History of Present Illness The patient is an 79-year-old male presenting for follow-up of multiple chronic conditions and management of a rotator cuff tear. The patient has a history of diabetes mellitus with a recent hemoglobin A1c of 7.1, improved from a previous level of 8.3, indicating better glycemic control. He is currently on Trulicity, Jardiance, and glipizide for diabetes management. The patient has hypercholesterolemia with an LDL cholesterol level of 52 mg/dL as of September 2024, and the goal is to maintain LDL below 70 mg/dL. He is also managing coronary artery disease with aspirin and has a blood pressure management plan involving isosorbide mononitrate and metoprolol. The patient has a history of a large full thickness tear of the supraspinatus and infraspinatus tendons with severe inflammation of the subscapularis tendon, requiring surgical intervention. The surgery has been postponed due to the need for better diabetes control, but with the improved A1c, the patient is advised to contact orthopedics to reschedule. The patient has chronic kidney disease and has been advised to avoid NSAIDs and maintain hydration to prevent further renal impairment. He reports using ibuprofen frequently for pain management, which is discouraged due to its potential nephrotoxic effects. Health Maintenance - Colon cancer screening with stool test completed in July 2022 - Flu vaccination recommended for mid-August Social History - Former smoker, quit 28 years ago - Reports dietary modifications, including reduced rice intake and limited bread consumption Review of Systems - Musculoskeletal: Reports pain radiating from shoulder to elbow and waist, affecting sleep - Renal: Reports frequent use of ibuprofen for pain management - General: Denies fever Physical Exam Results - Labs: Hemoglobin A1c improved to 7.1 from 8.3 - Labs: LDL cholesterol at 52 mg/dL as of September 2024 - Labs: Mild anemia noted in December 2019 Plan Patient was informed and verbally consented to the use of an ambient scribe for clinic note documentation during this visit. 1. Diabetes Mellitus The patient's diabetes management includes Trulicity, Jardiance, and glipizide, with a target hemoglobin A1c of less than 7.0. The recent improvement in A1c to 7.1 allows for the rescheduling of the postponed surgery. 2. Hypercholesterolemia The patient is managing hypercholesterolemia with a goal of maintaining LDL cholesterol below 70 mg/dL, currently at 52 mg/dL. 3. Coronary Artery Disease The patient is advised to continue aspirin therapy and maintain blood pressure control with isosorbide mononitrate and metoprolol. 4. Rotator Cuff Tear Surgical intervention is planned for the rotator cuff tear, pending improved diabetes control. 5. Chronic Kidney Disease The patient is advised to avoid NSAIDs and maintain hydration to prevent further renal impairment. Discussion Notes During the visit, we discussed the importance of maintaining glycemic control to proceed with the planned rotator cuff surgery. The patient was advised on the risks of NSAID use due to chronic kidney disease and was encouraged to maintain hydration. We also reviewed the patient's cholesterol management goals and the continuation of aspirin therapy for coronary artery disease. Patient Instructions - Maintain blood sugar levels with prescribed medications and diet modifications. - Avoid NSAIDs and stay hydrated to protect kidney function. - Contact orthopedics to reschedule rotator cuff surgery. - Continue aspirin therapy and blood pressure medications as prescribed. - Schedule a flu shot for mid-August. Orders: Orders Free T4 (Free Thyroxine) 1 Month - Type 2 diabetes mellitus with hyperglycemia Thyroid Stimulating Hormone 1 Month . - Type 2 diabetes mellitus with hyperglycemia Creatinine Urine 1 Month E11. - Type 2 diabetes mellitus with hyperglycemia Reticulocyte Count 1 Month E11. - Type 2 diabetes mellitus with hyperglycemia IRON PROFILE 1 Month E11. - Type 2 diabetes mellitus with hyperglycemia AMB Hemoglobin A1c Today Z13.9 - Encounter for screening, unspecified Complete Blood Count Auto Diff 1 Month - Type 2 diabetes mellitus with hyperglycemia Comprehensive Met. Panel 1 Month . - Type 2 diabetes mellitus with hyperglycemia Lipid Panel 1 Month . - Type 2 diabetes mellitus with hyperglycemia, E78.00 - Pure hypercholesterolemia, unspecified Hemoglobin A1c 1 Month E11. - Type 2 diabetes mellitus with hyperglycemia Microalbumin, Random (w Creat) 1 Month E11. - Type 2 diabetes mellitus with hyperglycemia Vitamin B12 and Folate 1 Month E11. - Type 2 diabetes mellitus with hyperglycemia Ferritin 1 Month . - Type 2 diabetes mellitus with hyperglycemia Medications: Refilled dulaglutide (Trulicity) 3 mg (0.5 mL) subcut QWEEK 2 mL 3RF E11.65 - Type 2 diabetes mellitus with hyperglycemia
[2025-08-19 09:53] VITALS: BP 130/62; PULSE 79; O2SAT 97; BMI 24.2
--- OUTSIDE RECORDS SUMMARY | 2025-08-19 10:20 | XMS_ITS | Patient Health Record ---
Author Organization [facility] Address [address] [place] [address] Care Team Providers Care Nurse Practitioner Manager Name Role Phone Aaron Collazo MD Primary Care Provider Elbert Hanson [phone] Allergies Allergen (clinical drug ingredient) Drug/Non Drug [...] Problem Status W/U Status Risk Notes Problem [id number] Encounter for screening for malignant neoplasm of colon (Z12.11) Active confirmed Problem Screening for malignant neoplasm of rectum (415386051) Encounter for screening for malignant neoplasm of rectum (Z12.12) Active confirmed Problem Iron deficiency anemia (32936015) Iron deficiency anemia (D50.9) Active confirmed Problem 385184760 Gastroesophageal reflux disease without esophagitis (K21.9) Active confirmed Problem 075373926 Long-term use of aspirin therapy (Z79.82) Active confirmed Problem Gastritis (6665427) Gastritis (K29.70) Active c onfirmed Problem Gastroesophageal reflux disease (030841237) GERD (gastroesophageal reflux disease) (K21.9) Active confirmed Problem 184481520 Hx of adenomatou s colonic polyps (Z86.010) Active confirmed Problem Diverticulosis of colon (247678155) Diverticulosis of colon (K57.30) Active confirmed Plan Of Treatment Future Test Test Name Order Date COLONOSCOPY 03/09/2019 UPPER GI ENDOSCOPY 06/05/2022 COLONOSCOPY 06/05/2022 Insurance Providers Payer Name Payer Address Payer Phone Subscriber Number Group Number Insured Name Patient Relationship to Insured Coverage Start Date Coverage End Date MEDICARE OF [place] [address] [place] [address] [id number] MAGDY KLEIN Self - patient is the insured MEDICAID OF [facility] [address] [place] [address] [id number] MAGDY KLEIN Self - patient is the insured Medical (General) History Medical History History ICD Code 10/20/2008 colonoscopy--- ne gative except for diverticulosis and internal hemorrhoids Coronary artery disease--[address] Will--most recent was in approx 2007 NIDDM Hypertension History of kidney stones Denies [place],CVA,Lung disease,renal disease GERD--EGD with Dr. Bruce in [...]
== END 2025-08-19 10:22 | disposition home or self-care (01) ==
LOC: HO.HMCH 09:45
PROVIDERS: PCP Internal Medicine; Visit Provider Internal Medicine
DX: I12.9 Hypertensive chronic kidney disease with stage 1 through stage 4 chronic kidney disease, or unspecified chronic kidney disease (principal); E11.65 Type 2 diabetes mellitus with hyperglycemia; N18.30 Chronic kidney disease, stage 3 unspecified; I25.10 Atherosclerotic heart disease of native coronary artery without angina pectoris; E78.00 Pure hypercholesterolemia, unspecified; M75.101 Unspecified rotator cuff tear or rupture of right shoulder, not specified as traumatic

== ENCOUNTER → 2025-08-19 09:44 | Outpatient (BNVA) | payer OTHER, SELFPAY | PROVIDERS: PCP Internal Medicine; Visit Provider Internal Medicine | DX: E11.65 Type 2 diabetes mellitus with hyperglycemia (principal); I25.10 Atherosclerotic heart disease of native coronary artery without angina pectoris; E78.00 Pure hypercholesterolemia, unspecified; I12.9 Hypertensive chronic kidney disease with stage 1 through stage 4 chronic kidney disease, or unspecified chronic kidney disease; N18.30 Chronic kidney disease, stage 3 unspecified; M75.101 Unspecified rotator cuff tear or rupture of right shoulder, not specified as traumatic | CPT/HCPCS: 83036; 99212 ==

== ENCOUNTER 2025-08-23 | Outpatient (REF) | payer OTHER, SELFPAY ==
--- OUTSIDE RECORDS SUMMARY | 2025-06-01 13:17 | XMS_ITS | Patient Health Record ---
Author Organization [facility] Address [address] [place] [address] Care Team Providers Care Turret Punch Operator Name Role Phone Aaron Collazo MD Primary Care Provider Elbert Hanson [phone] Allergies Allergen (clinical drug ingredient) Drug/Non Drug [...] Problem Status W/U Status Risk Notes Problem 111854310 Encounter for screening for malignant neoplasm of colon (Z12.11) Active confirmed Problem Screening for malignant neoplasm of rectum (036586615) Encounter for screening for malignant neoplasm of rectum (Z12.12) Active confirmed Problem Iron deficiency anemia (05000940) Iron deficiency anemia (D50.9) Active confirmed Problem 414693514 Gastroesophageal reflux disease without esophagitis (K21.9) Active confirmed Problem 333071965 Long-term use of aspirin therapy (Z79.82) Active confirmed Problem Gastritis (0147528) Gastritis (K29.70) Active c onfirmed Problem Gastroesophageal reflux disease (976142477) GERD (gastroesophageal reflux disease) (K21.9) Active confirmed Problem 757280064 Hx of adenomatou s colonic polyps (Z86.010) Active confirmed Problem Diverticulosis of colon (058213291) Diverticulosis of colon (K57.30) Active confirmed Plan Of Treatment Future Test Test Name Order Date COLONOSCOPY 03/09/2019 UPPER GI ENDOSCOPY 06/05/2022 COLONOSCOPY 06/05/2022 Insurance Providers Payer Name Payer Address Payer Phone Subscriber Number Group Number Insured Name Patient Relationship to Insured Coverage Start Date Coverage End Date MEDICARE OF [place] [address] [place] [address] [id number] MAGDY KLEIN Self - patient is the insured MEDICAID OF [facility] [address] [place] [address] [phone] [id number] MAGDY KLEIN Self - patient is the insured Medical (General) History Medical History History ICD Code 10/20/2008 colonoscopy--- ne gative except for diverticulosis and internal hemorrhoids Coronary artery disease--[address]. Will--most recent was in approx 2007 NIDDM Hypertension History of kidney stones Denies [place],CVA,Lung disease,renal disease GERD--EGD with Dr. Bruce in [...]
[2025-08-23 10:20] VITALS: BP 136/67; PULSE 77; RESP 18; O2SAT 98; BMI 23.7
--- NOTE | 2025-08-23 10:33 | HO.ANESPROP2 ---
HPI - Anesthesia Eval Consult details Narrative: 79 yr old male for right Arthroscopic Rotator Cuff Repair scheduled for 08/31/25, seen in PAT on 08/23/25 *Canceled by ortho? Medically optimized by PCP for surgery since A1C has improved to 7.1 08/19/25. Cardiac clearance with [facility] 08/19/25: intermediate cardiac risk No recent illness. No CP/SOB with minimal activity due to shoulder pain Type 2 DM: A1C improved to 7.1% as of 08/19/25 H/O CABG x4 in 2019: had unremarkable stress test 02/2025; echo from 2022, see below GERD: on daily PPI Anesthesia Pre-Procedure Meds Is the patient on any of the following meds?: GLP1/DPP4 and SGLT2 Inhib PMFSH Active Problems Active Problems: All Active Problems Preop cardiovascular exam (Acute) Rotator cuff tear, right (Acute) Memory problem (Acute) Fatigue (Acute) Eczematous dermatitis (Acute) Contact dermatitis (Acute) Rotator cuff insufficiency of right shoulder (Acute) Primary osteoarthritis, right shoulder (Acute) Peripheral neuropathy (Acute) Bilateral shoulder pain (Acute) Sebaceous cyst (Acute) Neck mass (Acute) Diabetes mellitus with chronic kidney disease (Acute) CKD (chronic kidney disease) stage 3, GFR 30-59 ml/min (Acute) Renal insufficiency (Acute) Plantar fasciitis of left foot (Acute) Blister (nonthermal), left foot, initial encounter (Acute) Cervical radiculopathy at C5 (Acute) Hospital discharge follow-up (Acute) Cervical paraspinal muscle spasm (Acute) Right shoulder pain (Acute) Peripheral vascular disease (Acute) Iron deficiency anemia (Acute) CRVO (central retinal vein occlusion) (Acute) Diabetic neuropathy (Acute) Left sciatic nerve pain (Acute) Headache (Acute) Chest pain (Acute) COVID-19 virus infection (Acute) Generalized anxiety disorder (Acute) Erectile dysfunction (Acute) Type 2 diabetes mellitus with hyperglycemia (Acute) HTN (hypertension) (Acute) Coronary artery disease (Acute) BPH (benign prostatic hyperplasia) (Acute) GERD (gastroesophageal reflux disease) (Acute) Hypercholesterolemia (Acute) Overweight (BMI 25.0-29.9) (Acute) Past Medical History Medical History Type 2 diabetes mellitus Chronic renal insufficiency Iron deficiency anemia HTN (hypertension) Sciatic nerve palsy, left BPH (benign prostatic hyperplasia) Fatty liver Renal calculi Adrenal adenoma GERD (gastroesophageal reflux disease) Hypercholesterolemia Coronary artery disease Overweight (BMI 25.0-29.9) Family History Family History Father Diabetes Hypertension CVD (cardiovascular disease) Mother Diabetes Family history of problems with anesthesia: No Surgical History Surgical History Hx of cystoscopy Hx of hand surgery History of transurethral resection of prostate History of esophagogastroduodenoscopy (EGD) H/O colonoscopy Hx of heart artery stent S/P CABG x 4 (~08/2019) History of prostate surgery History of arthroscopy of left shoulder History of tonsillectomy History of Problems with Anesthesia: No Social History Social History Household Members: Family Housing: House Are you a primary career development manager to a significant other at home: No Do you presently have visiting nurse or other home services: No Alcohol intake: never Patient Tobacco Use Status: Former Tobacco user Tobacco use type: Cigarette Cigarette Packs Per Day: 1.5 Years Smoked: 25 e-Cigarette/Vaping Use: Never Used Second Hand Smoke Exposure: Yes Advance Directives: No Advance Directives Information Provided: No service: No Current occupational status: retired Cognitive needs: Yes (cane) Hearing needs: No Vision needs: Yes (perscription glasses) Meds Allergies Allergy/AdvReac Type Severity Reaction Status Date / Time Penicillins Allergy Mild Rash Verified 09/18/25 14:06 linagliptin (Tradjenta) AdvReac Mild diarrhea Verified 09/18/25 14:06 lisinopril AdvReac Mild Cough Verified 09/18/25 14:06 Home Medications ?Medication ?Instructions ?Recorded ?Confirmed ?Last Taken ?Type aspirin 81 mg tablet,delayed 81 mg PO DAILY 09/13/20 08/30/25 04/28/23 History release cholecalciferol (vitamin D3) 25 25 mcg PO DAILY 09/13/20 08/30/25 04/28/23 History mcg (1,000 unit) tablet magnesium oxide 400 mg PO DAILY 09/13/20 08/30/25 04/28/23 History vitamin E (dl, acetate) 45 mg (100 100 unit PO DAILY 09/13/20 08/30/25 04/28/23 History unit) capsule blood sugar diagnostic #10 ea 01/08/21 08/30/25 Unknown History zinc acetate 25 mg (zinc) capsule 25 mg PO DAILY 01/12/24 08/30/25 Unknown History vitamin B complex 1 tab PO DAILY 07/11/25 08/30/25 Unknown History Exam Height,Weight and Vital Signs: Height 5 ft 8 in Weight 70.76 kg Last Vital Signs Pulse 77 08/23/25 10:20 Resp 18 08/23/25 10:20 BP 136/67 08/23/25 10:20 Pulse Ox 98 08/23/25 10:20 O2 Del Method Room Air 08/23/25 10:20 Pertinent Lab Results Pertinent Lab Results: Laboratory Tests 08/23/25 11:11 WBC 6.3 RBC 5.09 Hgb 13.9 L Hct 42.5 Plt Count 215 D Sodium 141 Potassium 4.2 BUN 19 H Creatinine 1.33 Narrative Narrative: EKG 08/19/25 NSR, left axis, rate 78 Cardiolite Stress Test 02/2025 Findings: The stress perfusion study showed nonattenuated images show small area of mildly reduced uptake in the distal lateral wall of the LV myocardium. There is also minimal thinning of the distal anterior wall of the LV myocardium. Remainder of the LV myocardium is normally perfused. Attenuated corrected images show normal uptake ordered images in all segments of the LV myocardium. The gated study shows normal LV systolic function with calculated LVEF of 63%. LV cavity is normal in size. The gated study shows normal systolic wall thickening and contraction of segments. Resting study shows both attenuated as well as nondistended corrected images show normal uptake of the LV myocardium. Gating at rest reveals normal systolic wall motion with ejection fraction at 55%. The findings are consistent with defect noted on nonattenuated stress images appears to be related to artifact from arms down position. No reversible defect noted on attenuated corrected images. Likely normal myocardial perfusion. ECHO 2022 Conclusions: - 1. Normal LV ejection fraction 55-60% with impaired relaxation filling pattern with underlying wall motion abnormality consistent with coronary artery disease 2. Fibrocalcific aortic valve changes noted with normal cardiac valvular Dopplers 3. Upper limits of normal ascending aortic size 4. No gross pericardial effusion Airway Mallampati Class: II TM Dist: >3cm Neck ROM: Limited (2/2 shoulder pain) Partial: Upper Loose/Missing/Broken Teeth: No Heart: RRR Lungs: CTAB Assessment and Plan Final Anesthetic Review Family History of Problems with Anesthesia: No History of Problems with Anesthesia: No
[2025-08-23 11:56] LABS: Hematocrit 42.5 % (42.0-52.0); Hemoglobin 13.9 g/dl (14.0-18.0); Mean Corpuscular HGB Conc 32.7 g/dl (31.0-36.0); Mean Corpuscular Hemoglobin 27.3 pg (27.0-33.0); Mean Corpuscular Volume 83.5 fL (80.0-98.0); NRBC Abs Auto 0.000 X10*3/uL (0.0-0.012); NRBC Pct Auto 0.0 /100WBC (0.0-0.2); Platelet Count 215 X10*3/uL (160-400); Red Blood Count 5.09 X10*6/uL (4.60-5.80); White Blood Count 6.3 X10*3/uL (4.8-10.8)
[2025-08-23 12:28] LABS: Anion Gap 13 (12-20); Blood Urea Nitrogen 19 mg/dL (9-16); Calcium 9.9 mg/dL (8.4-10.2); Carbon Dioxide 29 mmol/L (22-29); Chloride 103 mmol/L (96-108); Creatinine Clr Calc Pharmacy 42.1; Estimated Glomerular Filt Rate 52; Potassium 4.2 mmol/L (3.3-5.1); Sodium 141 mmol/L (135-145)
== END 2025-08-23 00:01 ==
LOC: HO.PAT
PROVIDERS: Nurse Practitioner; Visit Provider Orthopaedic Surgery
DX: Z01.818 Encounter for other preprocedural examination (principal); M75.101 Unspecified rotator cuff tear or rupture of right shoulder, not specified as traumatic
CPT/HCPCS: 36415; 80048; 85027

== ENCOUNTER 2025-08-30 09:39 | Outpatient (AMB) | payer OTHER, SELFPAY ==
[2025-08-30 09:46] VITALS: BP 132/74; PULSE 82; TEMP 36.2; O2SAT 98; BMI 24.2
--- NOTE | 2025-08-30 09:46 | A.OFFPC_ITS ---
Vital Signs 08/30/25 09:46 Height 5 ft 8 in Weight 159 lb BMI 24.2 BP 132/74 Blood Pressure Location Lt brachial Position Sitting Pulse 82 Pulse Source Pulse Oximeter Temp 97.1 F Temp Source Temporal Artery Scan Pulse Oximetry (%) 98 Oxygen Delivery Method Room Air Intake Visit Reasons: RT shoulder pain Allergies Penicillins Allergy (Mild, Verified 08/30/25 09:49) Rash linagliptin (Tradjenta) Adverse Reaction (Mild, Verified 08/30/25 09:49) diarrhea lisinopril Adverse Reaction (Mild, Verified 08/30/25 09:49) Cough Medication List - Last Reconciled 08/30/25 by Aaron Collazo MD ascorbic acid (vitamin C) (Vitamin C) 500 mg PO BID 90 days aspirin 81 mg PO DAILY blood sugar diagnostic As directed blood sugar diagnostic ([employer] Ultra Test strips) As directed check bs BID blood sugar diagnostic As directed check blood sugar 2 times a day bupropion HCl XL (Wellbutrin XL) 150 mg PO QAM cholecalciferol (vitamin D3) 25 mcg PO DAILY cyclobenzaprine 10 mg PO BEDTIME PRN dulaglutide (Trulicity) 3 mg (0.5 mL) subcut QWEEK empagliflozin 25 mg PO DAILY finasteride (Proscar) 5 mg PO DAILY 90 days furosemide 20 mg PO DAILY 90 days glipizide ER 10 mg PO DAILY hydroxyzine HCl 10 mg PO BEDTIME PRN isosorbide mononitrate ER 30 mg PO DAILY lidocaine 5% 2 patches topical DAILY magnesium oxide 400 mg PO DAILY metoprolol tartrate 25 mg PO BID 90 days omeprazole 20 mg PO QAM potassium chloride ER 20 mEq PO DAILY rosuvastatin 40 mg PO DAILY triamcinolone acetonide 0.5% 1 appl topical BID vitamin B complex 1 tab PO DAILY vitamin E (dl, acetate) 100 units PO DAILY [walking cane As directed] zinc acetate 25 mg PO DAILY Tobacco use date assessed: 08/30/25 Fall risk assessment: No Falls in past year Last assessed Fall Risk: 08/30/25 Dental Screening Dental Screen Date: 08/30/25 Did you have a dental visit in the last 12 months?: Yes Did you have a dental problem in the last 6 months where you did not have access to dental care?: No Was dental information given to patient?: Patient has [facility] Medical History Type 2 diabetes mellitus Chronic renal insufficiency Iron deficiency anemia HTN (hypertension) Sciatic nerve palsy, left BPH (benign prostatic hyperplasia) Fatty liver Renal calculi Adrenal adenoma GERD (gastroesophageal reflux disease) Hypercholesterolemia Coronary artery disease Overweight (BMI 25.0-29.9) Surgical History Hx of cystoscopy Hx of hand surgery History of transurethral resection of prostate History of esophagogastroduodenoscopy (EGD) H/O colonoscopy Hx of heart artery stent S/P CABG x 4 (~08/2019) History of prostate surgery History of arthroscopy of left shoulder History of tonsillectomy Family History Father Diabetes Hypertension CVD (cardiovascular disease) Mother Diabetes Social History Household Members: Family Housing: House Are you a primary nurse healthcare manager to a significant other at home: No Do you presently have visiting nurse or other home services: No Alcohol intake: never Patient Tobacco Use Status: Former Tobacco user Tobacco use type: Cigarette Cigarette Packs Per Day: 1.5 Years Smoked: 25 Packs Per Year: 38 e-Cigarette/Vaping Use: Never Used Second Hand Smoke Exposure: Yes service: No Current occupational status: retired Cognitive needs: Yes (cane) Hearing needs: No Vision needs: Yes (perscription glasses) Questionnaire PHQ-9 Over the last 2 weeks, how often have you been bothered by any of the following problems? 1. Little interest or pleasure in doing things: not at all 2. Feeling down, depressed, or hopeless: more than half the days 3. Trouble falling or staying asleep, or sleeping too much: more than half the days 4. Feeling tired or having little energy: more than half the days 5. Poor appetite or overeating: not at all 6. Feeling bad about yourself - or that you are a failure or have let yourself or your family down: not at all 7. Trouble concentrating on things, such as reading the newspaper or watching television: not at all 8. Moving or speaking so slowly that other people could have noticed. Or the opposite - being so fidgety or restless that you have been moving around a lot more than usual: not at all 9. Thoughts that you would be better off or of hurting yourself in some way: several days Total score: 7 Depression Screening Interpretation: Positive Depression Screening Done: Yes Source: Developed by Drs. Elbert Boogie, Esther Hilliard, Anurag Gupta and colleagues, with an educational elfego from [employer]. Thrive Questionnaire Date Thrive assessed: 08/30/25 I am a: Patient What is your living situation today?: I choose not to answer this question Within the past 12 months, did the food you bought not last and you didn't have the money to get more?: I choose not to answer this question Within the past 12 months, did you worry whether your food would run out before you got money to buy more?: I choose not to answer this question Do you have trouble paying for medicines?: I choose not to answer this question Do you have trouble getting transportation to medical appointments?: No Do you have trouble paying your heating and electricity bill?: No Do you have trouble taking care of your child, family member or friend?: I choose not to answer this question Do you have trouble with day-to-day activities such as bathing, preparing meals, shopping, managing finances, etc.?: I choose not to answer this question Are you currently unemployed and looking for a job?: No Are you interested in more education?: No Please select the resources that you would like help with: None Currently or been in a relationship where the following occur: I choose not to answer THRIVE Score: 0 AUDIT C Alcohol Use Questionnaire (AUDIT-C) 1. How often do you have a drink containing alcohol?: Never 3. How often do you have six or more drinks on one occasion?: Never Total Score: 0 TRINH-7 AMB Questionnaire TRINH-7 Date TRINH - 7 assessed: 12/28/24 Feeling nervous, anxious, or on edge: 0 = Not at all Not being able to stop or control worryin = Not at all Worrying too much about different things: 0 = Not at all Trouble relaxin = Not at all Being so restless that it is hard to sit still: 0 = Not at all Becoming easily annoyed or irritable: 0 = Not at all Feeling afraid as if something awful might happen: 0 = Not at all Total TRINH-7 score (0-4 normal; 5-9 mild; 10-14 moderate; 15-21 severe): 0 Source: Developed by Drs. Elbert Boogie, Esther Hilliard, Anurag Gupta and colleagues, with an educational elfego from [employer]. Physical exam (Primary Care) Vital Signs: Last Vital Signs Temp 97.1 F 08/30/25 09:46 Pulse 82 08/30/25 09:46 BP 132/74 08/30/25 09:46 Pulse Ox 98 08/30/25 09:46 Oxygen Delivery Method Room Air 08/30/25 09:46 BMI result Body Mass Index 24.2 Tobacco/Smoking Status: Tobacco use Status Tobacco use date assessed 08/30/25 08/30/25 09:50 Patient Tobacco Use Status Former Tobacco user 08/30/25 09:50 Tobacco use type Cigarette 08/30/25 09:50 e-Cigarette/Vaping Use Never Used 08/30/25 09:50 PHQ-9: PHQ-9 Score PHQ-9: Total score 7 08/30/25 09:56 Depression Screening Interpretation: Positive Thrive Assessment: Date of Thrive Assessment Date Thrive assessed 08/30/25 08/30/25 09:50 Currently or been in a relationship where the following occur: I choose not to answer Const General: alert; No acute distress Eyes Conjunctivae: conjunctivae normal Resp Auscultation: clear to auscultation bilaterally Cardio Rate: regular rate Rhythm: regular rhythm GI Inspection: Yes normal to inspection Extrem General: Yes normal to inspection and No edema Office Procedures Flu Questionnaire Does the patient have a severe egg allergy?: No Does the patient have severe life threatening allergies?: No Does the patient have a fever or illness today?: No Has the patient ever had Guillain-[place] Syndrome?: No Has the patient ever had any past reaction to a flu shot?: No Immunizations Fluarix [id number] (PF) 45 mcg (15 mcg x 3)/0.5 mL IM syringe Performing Provider: Aaron Collazo MD [facility] Administered by: Rissa Child CMA on 08/30/25 09:56 Dose Route Admin Location Dispensed Lot Number Expiration Date NDC Ged Teacher 0.5 mL IM Right Deltoid 0.5 mL [id number] 05/16/26 [id number] Alexis Bittar VIS Given Date VIS Provided VIS Publication Date 08/30/25 Single Vaccine 24 Eligibility Eligibility Date Funding Source Not VF Eligible 08/30/25 Private Coding Level of Care Code Est Pt Level 4 (85323) Complex EM visit Add On G2211 Diagnoses Rotator cuff insufficiency of right shoulder M25.311 Type 2 diabetes mellitus with hyperglycemia, without long-term current use of insulin E11.65 Diabetes mellitus penitentiary insulin use: without penitentiary use Hypercholesterolemia E78.00 Coronary artery disease involving [place] coronary artery of [place] heart without angina pectoris I25.10 Coronary Disease-Associated Artery/Lesion type: [place] artery [place] vs. transplanted heart: [place] heart Associated angina: without angina HTN (hypertension) I10 CKD (chronic kidney disease) stage 3, GFR 30-59 ml/min N18.30 Assessment & Plan Assessment & Plan (1) Rotator cuff insufficiency of right shoulder: Code(s): M25.311 - Other instability, right shoulder Category: Medical Plan: Patient is getting scheduled for operation for the right shoulder (2) Type 2 diabetes mellitus with hyperglycemia: Code(s): E11.65 - Type 2 diabetes mellitus with hyperglycemia Category: Medical Qualifiers: Diabetes mellitus termite renewal inspector insulin use: without penitentiary use Qualified Code(s): E11.65 - Type 2 diabetes mellitus with hyperglycemia Plan: Decrease the amount of carbohydrate intake, pasta, bread, rice and potatoes are all sugar and that is aside from all the sweet stuff, remember that fruits are good but they are Sweet also. On Jardiance 25 mg once a day glipizide 10 mg once a day. For surgery patient is advised to hold Trulicity 1 week before the procedure, Jardiance is 3 days before the procedure (3) Hypercholesterolemia: Code(s): E78.00 - Pure hypercholesterolemia, unspecified Category: Medical Plan: Avoid fried foods, chicken skin, eggs, butter margarine, pastries and meat. Be it pork or beef they have a lot of cholesterol LDL goal of less than 70 and triglyceride of less than 150 on rosuvastatin (4) Coronary artery disease: Comment: CABG August [address] Rhodes-follows w/[facility] Code(s): I25.10 - Atherosclerotic heart disease of [place] coronary artery without angina pectoris Category: Medical Qualifiers: Coronary Disease-Associated Artery/Lesion type: [place] artery [place] vs. transplanted heart: [place] heart Associated angina: without angina Qualified Code(s): I25.10 - Atherosclerotic heart disease of [place] coronary artery without angina pectoris Plan: Control the cholesterol, weight, blood pressure, diabetes may hold aspirin 1 week before the procedure. (5) HTN (hypertension): Code(s): I10 - Essential (primary) hypertension Category: Medical Plan: Continue with blood pressure medication. Decrease salt intake and exercise continue with metoprolol, isosorbide (6) CKD (chronic kidney disease) stage 3, GFR 30-59 ml/min: Code(s): N18.30 - Chronic kidney disease, stage 3 unspecified Category: Medical Plan: Keep well hydrated avoid NSAIDs Orders: Orders Influenza [id number] Immunization Today Z23 - Encounter for immunization Referrals Orthopedics Referral M25.311 - Other instability, right shoulder Medications: New duloxetine 30 mg PO DAILY 30 caps 3RF G62.89 - Other specified polyneuropathies
--- OUTSIDE RECORDS SUMMARY | 2025-08-30 10:47 | XMS_ITS | Patient Health Record ---
Author Organization [facility] Address [address] [place] [address] Care Team Providers Care Soil Chemist Name Role Phone Aaron Collazo MD Primary Care Provider Elbert Hanson [phone] Allergies Allergen (clinical drug ingredient) Drug/Non Drug [...] 400 UNIT 1 capsule Orally Once a day; Duration: 30 day(s) Active hydroCHLOROthiazide 12.5 MG 1 [...] Problem Status W/U Status Risk Notes Problem Screening for malignant neoplasm of colon (870836171) Encounter for screening for malignant neoplasm of colon (Z12.11) Active confirmed Problem Screening for malignant neoplasm of rectum (143536128) Encounter for screening for malignant neoplasm of rectum (Z12.12) Active confirmed Problem Iron deficiency anemia (05008819) Iron deficiency anemia (D50.9) Active confirmed Problem Gastroesophageal reflux disease without esophagitis (065977685) Gastroesophageal reflux disease without esophagitis (K21.9) Active confirmed Problem Long-term current use of antiplatelet drug (752727330690421) Long-term use of aspirin therapy (Z79.82) Active confirmed Problem Gastritis (8384408) Gastritis (K29.70) Active c onfirmed Problem Gastroesophageal reflux disease (153936770) GERD (gastroesophageal reflux disease) (K21.9) Active confirmed Problem History of adenomatous polyp of colon (275439791) Hx of adenomatous colonic polyps (Z86.010) Active confirmed Problem Diverticulosis of colon (430807512) Diverticulosis of colon (K57.30) Active confirmed Plan Of Treatment Future Test Test Name Order Date COLONOSCOPY 03/09/2019 UPPER GI ENDOSCOPY 06/05/2022 COLONOSCOPY 06/05/2022 Insurance Providers Payer Name Payer Address Payer Phone Subscriber Number Group Number Insured Name Patient Relationship to Insured Coverage Start Date Coverage End Date MEDICARE OF [place] [address] [place] [address] [id number] MAGDY KLEIN Self - patient is the insured MEDICAID OF [facility] [address] [place] [address] [id number] MAGDY KLEIN Self - patient is the [...]
== END 2025-08-30 10:30 | disposition home or self-care (01) ==
LOC: HO.HMCH 09:40
PROVIDERS: PCP Internal Medicine; Visit Provider Internal Medicine
DX: M25.311 Other instability, right shoulder (principal); E11.65 Type 2 diabetes mellitus with hyperglycemia; E78.00 Pure hypercholesterolemia, unspecified; I25.10 Atherosclerotic heart disease of native coronary artery without angina pectoris; I10 Essential (primary) hypertension; N18.30 Chronic kidney disease, stage 3 unspecified; Z23 Encounter for immunization

== ENCOUNTER → 2025-08-30 09:39 | Outpatient (BNVA) | payer OTHER, SELFPAY | PROVIDERS: PCP Internal Medicine; Visit Provider Internal Medicine | DX: E11.65 Type 2 diabetes mellitus with hyperglycemia (principal); E78.00 Pure hypercholesterolemia, unspecified; I25.10 Atherosclerotic heart disease of native coronary artery without angina pectoris; E11.22 Type 2 diabetes mellitus with diabetic chronic kidney disease; I12.9 Hypertensive chronic kidney disease with stage 1 through stage 4 chronic kidney disease, or unspecified chronic kidney disease; N18.30 Chronic kidney disease, stage 3 unspecified; M25.311 Other instability, right shoulder; G62.89 Other specified polyneuropathies; Z23 Encounter for immunization | CPT/HCPCS: 90471; 90656; 96127; 99212 ==

== ENCOUNTER 2025-09-01 09:47 | Outpatient (AMB) | payer OTHER, SELFPAY ==
--- NOTE | 2025-09-01 10:18 | MHC.OFFVIS ---
Intake Visit Reasons: BPH Intake Note: patient presents today for: new pt BPH urology medications: vitC, finasteride, potassium blood thinners: aspirin today's PVR: 0mls Medical Radiation Therapist Required: No Accompanied by: Self / Same As Patient Allergies Penicillins Allergy (Mild, Verified 09/01/25 10:23) Rash linagliptin (Tradjenta) Adverse Reaction (Mild, Verified 09/01/25 10:23) diarrhea lisinopril Adverse Reaction (Mild, Verified 09/01/25 10:23) Cough HPI Comments Details: Calderon is a pleasant male. He is a patient of Dr. Collazo. He is seen for the following urologic conditions - lower urinary tract symptoms Finasteride UA shows 3+ glucose - Jardiance 25 mg and furosemide 20 mg PFSH Medical History Type 2 diabetes mellitus Chronic renal insufficiency Iron deficiency anemia HTN (hypertension) Sciatic nerve palsy, left BPH (benign prostatic hyperplasia) Fatty liver Renal calculi Adrenal adenoma GERD (gastroesophageal reflux disease) Hypercholesterolemia Coronary artery disease Overweight (BMI 25.0-29.9) Surgical History Hx of cystoscopy Hx of hand surgery History of transurethral resection of prostate History of esophagogastroduodenoscopy (EGD) H/O colonoscopy Hx of heart artery stent S/P CABG x 4 (~08/2019) History of prostate surgery History of arthroscopy of left shoulder History of tonsillectomy Family History Father Diabetes Hypertension CVD (cardiovascular disease) Mother Diabetes Social History Household Members: Family Housing: House Are you a primary healthcare prof to a significant other at home: No Do you presently have visiting nurse or other home services: No Alcohol intake: never Patient Tobacco Use Status: Former Tobacco user Tobacco use type: Cigarette Cigarette Packs Per Day: 1.5 Years Smoked: 25 e-Cigarette/Vaping Use: Never Used Second Hand Smoke Exposure: Yes service: No Current occupational status: retired Cognitive needs: Yes (cane) Hearing needs: No Vision needs: Yes (perscription glasses) Office Procedures Post Void Residual Post Residual Void Post Void Residual (PVR): 0 [id number] Void Residual by ultrasound Results AMB Urinalysis, Automated UA Leukoctes 0 Robb/uL Last Edit by RIC Conklin on 09/01/25 10:38 UA Nitrite Last Edit by Jeane Sandoval [facility] on 09/01/25 10:38 UA Urobilinogen 0.2 mg/dL Last Edit by RIC Conklin on 09/01/25 10:38 UA Protein 0 mg/dL Last Edit by Jeane Sandoval [facility] on 09/01/25 10:38 UA pH 6.0 Last Edit by Jeane Sandoval [facility] on 09/01/25 10:38 UA Blood 0 Alistair/uL [facility] 09/01/[facility] 10:38 UA Specific Binford 1.010 Last Edit by Jeane Sandoval [facility] on 09/01/25 10:38 UA Ketone Last Edit [facility] on 09/01/25 10:38 UA Bilirubin 0 mg/dL Last Edit by Jeane Sandoval [facility] on 09/01/25 10:38 UA Glucose 1000 mg/dL Last Edit by Jeane Sandoval [facility] on 09/01/25 10:38 Results Reviewed Results Reviewed: Laboratory Last Values Urine pH (Auto) 6.0 09/01/25 10:37 Specific Binford (Auto) 1.010 09/01/25 10:37 Urine Protein (Auto) 0 mg/dL 09/01/25 10:37 Glucose (UA)(Auto) 1000 mg/dL 09/01/25 10:37 Urine Blood (Auto) 0 Alistair/uL 09/01/25 10:37 Urine Bilirubin (Auto) 0 mg/dL 09/01/25 10:37 Urine Urobilinogen (Auto) 0.2 mg/dL 09/01/25 10:37 Leukocyte Esterase (Auto) 0 Robb/uL 09/01/25 10:37 Assessment & Plan Assessment & Plan Orders: Orders AMB Post Void Residual by ultrasound Today N40.0 - Benign prostatic hyperplasia without lower urinary tract symptoms AMB Urinalysis Automated Today Z13.9 - Encounter for screening, unspecified Coding CPT Codes Post Residual Void - PVR CPT Code: 08301-[id number] Void Residual by ultrasound ([id number])
--- OUTSIDE RECORDS SUMMARY | 2025-09-01 11:26 | XMS_ITS | Patient Health Record ---
Author Organization [facility] Address [address] [place] [address] Care Team Providers Care Day Haul Youth Supervisor Name Role Phone Aaron Collazo MD Primary Care Provider Elbert Hanson [phone] Allergies Allergen (clinical drug ingredient) Drug/Non Drug [...] Problem Screening for malignant neoplasm of colon (174951684) Encounter for screening for malignant neoplasm of colon (Z12.11) Active confirmed Problem Screening for malignant neoplasm of rectum (214004239) Encounter for screening for malignant neoplasm of rectum (Z12.12) Active confirmed Problem Iron deficiency anemia (61286500) Iron deficiency anemia (D50.9) Active confirmed Problem Gastroesophageal reflux disease without esophagitis (358000836) Gastroesophageal reflux disease without esophagitis (K21.9) Active confirmed Problem Long-term current use of antiplatelet drug (671984799633385) Long-term use of aspirin therapy (Z79.82) Active confirmed Problem Gastritis (0271023) Gastritis (K29.70) Active c onfirmed Problem Gastroesophageal reflux disease (035640139) GERD (gastroesophageal reflux disease) (K21.9) Active confirmed Problem History of adenomatous polyp of colon (309975681) Hx of adenomatous colonic polyps (Z86.010) Active confirmed Problem Diverticulosis of colon (167476818) Diverticulosis of colon (K57.30) Active confirmed Plan Of Treatment Future Test Test Name Order Date COLONOSCOPY 03/09/2019 UPPER GI ENDOSCOPY 06/05/2022 COLONOSCOPY 06/05/2022 Insurance Providers Payer Name Payer Address Payer Phone Subscriber Number Group Number Insured Name Patient Relationship to Insured Coverage Start Date Coverage End Date MEDICARE OF [place] [address] [facility] [address] [id number] MAGDY KLEIN Self - patient is the insured MEDICAID OF [facility] [address] [place] [address] [id number] MAGDY KLEIN Self - patient is the insured Medical (General) History Medical History History ICD Code 10/20/2008 colonoscopy--- ne gative except for diverticulosis and internal hemorrhoids Coronary artery disease--[address] Will--most recent was in approx 2007 NIDDM Hypertension History of kidney stones Denies NE,CVA,Lung disease,renal disease GERD--EGD with Dr. Bruce in [...]
== END 2025-09-01 11:18 | disposition home or self-care (01) ==
LOC: HO.HUSH 09:48
PROVIDERS: PCP Internal Medicine; Visit Provider Urology
DX: Z13.9 Encounter for screening, unspecified (principal)

== ENCOUNTER → 2025-09-01 | Outpatient (BNVA) | payer OTHER, SELFPAY | PROVIDERS: PCP Internal Medicine; Visit Provider Urology | DX: N40.0 Benign prostatic hyperplasia without lower urinary tract symptoms (principal); N52.9 Male erectile dysfunction, unspecified; Z13.9 Encounter for screening, unspecified | CPT/HCPCS: 51798; 81003; 99202 ==

== ENCOUNTER 2025-09-18 13:35 | Emergency (ER) | payer OTHER, SELFPAY ==
[2025-09-18 14:03] VITALS: BP 105/69; PULSE 85; RESP 18; TEMP 35.9; O2SAT 96; BMI 23.6
--- NOTE | 2025-09-18 15:19 | ED.GENADULT ---
HPI - General Adult General Chief complaint: Extremity Problem Stated complaint: neck pain rad down arm Time Seen by Provider: 09/18/25 16:29 History of Present Illness ED Provider: Teresa PANDYA narrative: The patient is an 79-year-old male. He has had problems with the shoulder pain. In the past he had left shoulder surgery for rotator cuff repair. More recently he has had problems with his right shoulder. He has felt to have a right rotator cuff problem as well. He has been seen by Dr. Godfrey of Orthopedics. Several months ago he received a steroid injection in the shoulder for his pain which the patient says was not very help in his last with Dr. Godfrey was in February of 2025. At that time Dr. Godfrey felt the patient is glucose control was too poor for an additional attempt at a steroid injection. The plan was for operative repair of his rotator cuff but the patient's glucose control has been a problem. The patient tells me he was scheduled to have surgery a couple of weeks ago but the surgery was canceled. The patient takes gabapentin for chronic pain which he says is not helpful. He says that over the last couple of weeks the pain in his right shoulder has become worse and over the last few days he has not been able to sleep because of the pain. There has been no new injuries. No fever, sweats, chills. Related Data Home Medications ?Medication ?Instructions ?Recorded ?Confirmed aspirin 81 mg tablet,delayed 81 mg PO DAILY 09/13/20 08/30/25 release cholecalciferol (vitamin D3) 25 25 mcg PO DAILY 09/13/20 08/30/25 mcg (1,000 unit) tablet magnesium oxide 400 mg PO DAILY 09/13/20 08/30/25 vitamin E (dl, acetate) 45 mg (100 100 unit PO DAILY 09/13/20 08/30/25 unit) capsule blood sugar diagnostic #10 ea 01/08/21 08/30/25 zinc acetate 25 mg (zinc) capsule 25 mg PO DAILY 01/12/24 08/30/25 vitamin B complex 1 tab PO DAILY 07/11/25 08/30/25 Previous Rx's ?Medication ?Instructions ?Recorded ascorbic acid (vitamin C) 500 mg 500 mg PO BID 90 days #180 tabs 07/19/21 tablet (Vitamin C) blood sugar diagnostic #2 boxes 08/22/22 walking cane #1 ea 12/05/22 cyclobenzaprine 10 mg tablet 10 mg PO BEDTIME PRN muscle spasm 04/10/23 #14 tabs potassium chloride 20 mEq 20 meq PO DAILY #30 tabs 04/30/23 tablet,extended release blood sugar diagnostic (OneTouch #2 ea 12/05/23 Ultra Test strips) omeprazole 20 mg capsule,delayed 20 mg PO QAM #90 caps 07/26/24 release lidocaine 5 % topical patch 2 patch topical DAILY #30 ea 11/09/24 rosuvastatin 40 mg tablet 40 mg PO DAILY #90 tabs 11/09/24 hydroxyzine HCl 10 mg tablet 10 mg PO BEDTIME PRN itching #10 01/06/25 tabs triamcinolone acetonide 0.5 % 1 appl topical BID #30 grams 02/11/25 topical cream isosorbide mononitrate 30 mg 30 mg PO DAILY #90 tabs 02/28/25 tablet,extended release 24 hr furosemide 20 mg tablet 20 mg PO DAILY 90 days #90 tabs 04/02/25 bupropion HCl 150 mg 24 hr tablet, 150 mg PO QAM #30 tabs 04/27/25 extended release (Wellbutrin XL) metoprolol tartrate 25 mg tablet 25 mg PO BID htn 90 days #180 tabs 04/27/25 empagliflozin 25 mg tablet 25 mg PO DAILY #90 tabs 06/03/25 glipizide 10 mg tablet, extended 10 mg PO DAILY #90 tabs 06/03/25 release 24 hr dulaglutide 3 mg/0.5 mL 3 mg (0.5 mL) subcut QWEEK #2 mL 08/19/25 subcutaneous pen injector (Trulicity) duloxetine 30 mg capsule,delayed 30 mg PO DAILY #30 caps 08/30/25 release finasteride 5 mg tablet (Proscar) 5 mg PO DAILY prostate 90 days #90 09/01/25 tabs acetaminophen 500 mg capsule 1,000 mg (2 x 500 mg) PO Q8H PRN 09/18/25 fever or pain #14 caps morphine 15 mg immediate release 15 mg PO Q6H PRN pain #14 tabs 09/18/25 tablet Allergies Allergy/AdvReac Type Severity Reaction Status Date / Time Penicillins Allergy Mild Rash Verified 09/18/25 14:06 linagliptin (Tradjenta) AdvReac Mild diarrhea Verified 09/18/25 14:06 lisinopril AdvReac Mild Cough Verified 09/18/25 14:06 Review of Systems Review of Systems: Yes all other systems are reviewed and are negative [facility] Past Medical History Medical History Type 2 diabetes mellitus Chronic renal insufficiency Iron deficiency anemia HTN (hypertension) Sciatic nerve palsy, left BPH (benign prostatic hyperplasia) Fatty liver Renal calculi Adrenal adenoma GERD (gastroesophageal reflux disease) Hypercholesterolemia Coronary artery disease Overweight (BMI 25.0-29.9) Surgical History Hx of cystoscopy Hx of hand surgery History of transurethral resection of prostate History of esophagogastroduodenoscopy (EGD) H/O colonoscopy Hx of heart artery stent S/P CABG x 4 (~08/2019) History of prostate surgery History of arthroscopy of left shoulder History of tonsillectomy Family History Family History Father Diabetes Hypertension CVD (cardiovascular disease) Mother Diabetes Social History Social History Household Members: Family Housing: House Are you a primary health care specialist to a significant other at home: No Do you presently have visiting nurse or other home services: No Alcohol intake: never Patient Tobacco Use Status: Former Tobacco user Tobacco use type: Cigarette Cigarette Packs Per Day: 1.5 Years Smoked: 25 e-Cigarette/Vaping Use: Never Used Second Hand Smoke Exposure: Yes service: No Current occupational status: retired Cognitive needs: Yes (cane) Hearing needs: No Vision needs: Yes (perscription glasses) Physical Exam ED Vital Signs: Vital Signs - 24 hr 09/18/25 14:03 Temperature 96.7 F L Pulse Rate 85 Respiratory Rate 18 Blood Pressure 105/69 Pulse Oximetry 96 Oxygen Delivery Method Room Air BMI result Body Mass Index 23.6 Const Other: The patient seemed to be resting peacefully on the stretcher when I 1st approached him. He responded easily to verbal stimuli and sat up to a normal mental status. He does not appear in acute distress but he did seem to have some discomfort when he changed positions. HENMT Other: The face is symmetrical. ?Mucous membranes moist. Eyes Other: Pupils are round equal, conjunctivae are clear, extraocular movements intact Neck Neck: Yes normal visual inspection, Yes full ROM and Yes no JVD Resp Effort & Inspection: normal respiratory effort Auscultation: clear to auscultation bilaterally Cardio Rate: regular rate Rhythm: regular rhythm Heart sounds: S1 normal heart sound present and S2 normal heart sound present Skin Other: Skin is intact an unremarkable Neuro Other: The patient is awake and alert with a normal mental status. The right hand is neurovascularly intact. Extrem Other: The patient has good pulses in the right wrist. He has normal function of the right fingers. He has intact sensation in the right hand. He moves the fingers, wrist, and elbow easily. He has pain with manipulation of the right shoulder but I can put the shoulder through a reasonably good range of motion. With the palpation of the right shoulder there is diffuse tenderness but no deformity or significant swelling. Course Course Course Narrative: This is a Rapid Medical Exam performed in triage by Jael Conklin PA-C. Full HPI, ROS and PE to be performed by primary ED provider. 79 yo M w/pmhx DM, HTN, GERD, CAD, BPH presenting to the ED c/o right-sided neck pain radiating to right shoulder/RUE x1 mos, worsening. States the pain is preventing him from sleeping. Reports associated finger paresthesias. PE: + reproducible right shoulder tenderness. Limited ROM secondary to pain. Neurovascularly intact Plan: EKG, POC Medical Decision Making Medical Decision Making MDM Narrative: The patient is an 79-year-old male who has been having chronic right shoulder pain, presumably secondary to rotator cuff problems, for several months. Surgery to repair this problem has been delayed because of diabetic control. The pain has gotten significantly worse over the last several days the patient says to the point where he is completely unable to sleep. The patient does not have a fever or any other symptoms to suggest an infectious complication. There has been no new injury. I do not feel that there is a new acute emergency with regard to the patient has pain I think this is more of a worsening chronic pain problem. He said he is on gabapentin but he does not find it helpful. I suggested possibly tramadol but he says that is not helpful. I will give him a prescription for 14 tablets of morphine immediate release 15 mg each. He will be told that he needs to follow up with his regular providers for ongoing management of this chronic problem. Discharge Plan Discharge Clinical Impression: Pain in right shoulder Patient Disposition: Home, Self-Care Additional Instructions: I have sent prescriptions for acetaminophen (Tylenol) and also for morphine tablets to your pharmacy. I would recommend taking the acetaminophen 3 times a day as needed, approximately every 8 hours. In addition you may use the morphine on an as-needed basis. Try to use this as little as possible. No driving on morphine. For ongoing pain management you will need to contact your regular doctor's. Please call Dr. Collazo and Dr. Godfrey tomorrow to try to figure out the long-term management of this pain. Prescriptions: New morphine 15 mg tablet 15 mg PO Q6H PRN (Reason: pain) Qty: 14 0RF Rx Instructions: Partial Fill upon patient request. acetaminophen 500 mg capsule 1,000 mg PO Q8H PRN (Reason: fever or pain) Qty: 14 0RF No Action (DME) blood sugar diagnostic Strip See Rx Instructions .ROUTE .MEDSUPPLY Qty: 10 Rx Instructions: As directed ascorbic acid (vitamin C) [Vitamin C] 500 mg tablet 500 mg PO BID 90 Days Qty: 180 3RF (DME) walking cane See Rx Instructions .Route .MEDSUPPLY Qty: 1 0RF Rx Instructions: As directed omeprazole 20 mg capsule,delayed release(DR/EC) 20 mg PO QAM Qty: 90 2RF isosorbide mononitrate 30 mg tablet extended release 24 hr 30 mg PO DAILY Qty: 90 3RF furosemide 20 mg tablet 20 mg PO DAILY 90 Days Qty: 90 2RF potassium chloride 20 mEq tablet extended release 20 meq PO DAILY Qty: 30 0RF vitamin B complex Tablet 1 tab PO DAILY cholecalciferol (vitamin D3) 25 mcg (1,000 unit) tablet 25 mcg PO DAILY aspirin 81 mg tablet,delayed release (DR/EC) 81 mg PO DAILY magnesium oxide 400 mg magnesium tablet 400 mg PO DAILY vitamin E (dl, acetate) 100 unit capsule 100 unit PO DAILY (DME) blood sugar diagnostic Strip See Rx Instructions .ROUTE .MEDSUPPLY Qty: 2 3RF Rx Instructions: As directed check blood sugar 2 times a day cyclobenzaprine 10 mg tablet 10 mg PO BEDTIME PRN (Reason: muscle spasm) Qty: 14 0RF (DME) OneTouch Ultra Test Strip See Rx Instructions .Route Qty: 2 3RF Rx Instructions: As directed check bs BID zinc acetate 25 mg (zinc) capsule 25 mg PO DAILY lidocaine 5 % adhesive patch,medicated 2 patch topical DAILY Qty: 30 0RF Rx Instructions: leave on most painful area for up to 12 hrs rosuvastatin 40 mg tablet 40 mg PO DAILY Qty: 90 3RF metoprolol tartrate 25 mg tablet 25 mg PO BID 90 Days Qty: 180 2RF bupropion HCl [Wellbutrin XL] 150 mg tablet extended release 24 hr 150 mg PO QAM Qty: 30 5RF triamcinolone acetonide 0.5 % cream 1 appl topical BID Qty: 30 0RF empagliflozin 25 mg tablet 25 mg PO DAILY Qty: 90 4RF glipizide 10 mg tablet extended release 24hr 10 mg PO DAILY Qty: 90 2RF hydroxyzine HCl 10 mg tablet 10 mg PO BEDTIME PRN (Reason: itching) Qty: 10 0RF Trulicity 3 mg/0.5 mL pen injector 3 mg subcut QWEEK Qty: 2 3RF Rx Instructions: takes on Sundays finasteride [Proscar] 5 mg tablet 5 mg PO DAILY 90 Days Qty: 90 3RF duloxetine 30 mg capsule,delayed release(DR/EC) 30 mg PO DAILY Qty: 30 3RF Print Language: Romanian
--- NOTE | 2025-09-18 15:22 | ECG_ITS ---
Test Reason : L SHOULDER PAIN Blood Pressure : */* mmHG Vent. 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
--- OUTSIDE RECORDS SUMMARY | 2025-09-18 16:48 | XMS_ITS | Patient Health Record ---
Author Organization [facility] Address [address] [place] [address] Care Team Providers Care Patient Service Associate Name Role Phone Aaron Collazo MD Primary Care Provider Elbert Hanson [phone] Allergies Allergen (clinical drug ingredient) Drug/Non Drug [...] Problem Screening for malignant neoplasm of colon (415537540) Encounter for screening for malignant neoplasm of colon (Z12.11) Active confirmed Problem Screening for malignant neoplasm of rectum (878602769) Encounter for screening for malignant neoplasm of rectum (Z12.12) Active confirmed Problem Iron deficiency anemia (61910007) Iron deficiency anemia (D50.9) Active confirmed Problem Gastroesophageal reflux disease without esophagitis (152395553) Gastroesophageal reflux disease without esophagitis (K21.9) Active confirmed Problem Long-term current use of antiplatelet drug (201581360073174) Long-term use of aspirin therapy (Z79.82) Active confirmed Problem Gastritis (7656049) Gastritis (K29.70) Active c onfirmed Problem Gastroesophageal reflux disease (219059654) GERD (gastroesophageal reflux disease) (K21.9) Active confirmed Problem History of adenomatous polyp of colon (251859750) Hx of adenomatous colonic polyps (Z86.010) Active confirmed Problem Diverticulosis of colon (765114192) Diverticulosis of colon (K57.30) Active confirmed Plan Of Treatment Future Test Test Name Order Date COLONOSCOPY 03/09/2019 UPPER GI ENDOSCOPY 06/05/2022 COLONOSCOPY 06/05/2022 Insurance Providers Payer Name Payer Address Payer Phone Subscriber Number Group Number Insured Name Patient Relationship to Insured Coverage Start Date Coverage End Date MEDICARE OF [place] [address] [facility] [place] [address] [id number] MAGDY KLEIN Self - patient is the insured MEDICAID OF [facility] [address] [place] [address] [id number] MAGDY KLEIN Self - patient is the [...]
[2025-09-18 16:57] VITALS: BP 105/69; PULSE 85; RESP 18; TEMP 35.9; O2SAT 96
== END 2025-09-18 16:58 | disposition home or self-care (01) ==
PROVIDERS: Emergency Provider Emergency Medicine; PCP Internal Medicine
DX: M25.511 Pain in right shoulder (principal); G89.29 Other chronic pain; R94.31 Abnormal electrocardiogram [ECG] [EKG]; Z79.899 Other long term (current) drug therapy; Z87.891 Personal history of nicotine dependence
CPT/HCPCS: 93005; 99283

== ENCOUNTER → 2025-09-18 15:22 | Outpatient (BNV) | payer OTHER, SELFPAY | PROVIDERS: Emergency Provider Emergency Medicine; PCP Internal Medicine; Visit Provider Internal Medicine Cardiovascular Disease | DX: I25.2 Old myocardial infarction (principal) | CPT/HCPCS: 93010 ==

== ENCOUNTER 2025-10-12 13:19 | Emergency (ER) | payer OTHER, SELFPAY ==
--- NOTE | ~2025-10-12 | CT_ITS ---
EXAMINATION: CT CHEST WITHOUT CONTRAST CLINICAL INFORMATION: right sided rib pain COMPARISON: July 06, 2023 chest x-ray TECHNIQUE: Multidetector volumetric CT imaging of the chest was done. Axial MIP volume rendering provided. Sagittal and coronal reformatted images were obtained. This CT examination was performed using dose optimization techniques as appropriate, variously including the following: *Automated exposure control *Adjustment of mA and/or kV according to patient size (this includes techniques or standardized protocols for targeted exams where dose is matched to indication/reason for exam; i.e. extremities or head) *Use of iterative reconstruction technique FINDINGS: LUNGS: There is a calcified granuloma in the medial apex of the right upper lobe 6 mm in diameter. There is a faint groundglass density 6 mm in diameter with 1 mm central solid component in the posterior left apex (CT #6 image 31) MEDIASTINUM: The mediastinum is normal. CORONARY ARTERY CALCIFICATION: Densely calcified PLEURA: There is no pleural effusion. No pleural mass or thickening. AXILLA: No lymphadenopathy. UPPER ABDOMEN: There is a benign simple cyst in the posterior right kidney. There is a 2 cm right ovarian nodule measuring -8 Hounsfield units consistent with a benign lipid rich adrenal adenoma. There is a similar 17 mm nodule on the left. OSSEOUS STRUCTURES: Moderate degenerative changes are most advanced in the midthoracic spine and there is disc space narrowing, vacuum phenomena, degenerative endplate irregularities, and osteophytes. Wires related to median sternotomy are present. No rib fracture or deformity is identified. There is mild levoscoliosis. CT/CT chest wo IV con IMPRESSION: There is a part solid nodule in the left upper lobe measuring 5 mm in diameter. No further follow-up is indicated per Fleischner Society recommendations. No right-sided rib fracture or pleural/parenchymal abnormalities. Electronically signed by: Ricky Davalos MD 10/12/2025 02:32 PM EST
[2025-10-12 13:33] VITALS: BP 125/75; PULSE 91; RESP 16; TEMP 36.5; O2SAT 94; BMI 26.2
--- NOTE | 2025-10-12 13:40 | ED_ITS ---
HPI - General Adult General Chief complaint: General Medical Stated complaint: Stomach Pain Time Seen by Provider: 10/12/25 13:40 Source: patient Mode of arrival: ambulatory Limitations: no limitations History of Present Illness ED Provider: Sisi Acevedo PA-C HPI narrative: Patient is an 79 year old assigned male at with a history of eczema, OA, neuropathy, DM, CKD, PVD, CRVO, CAD, HTN, BPH, GERD, and previous CABG presenting to the emergency department today with right sided rib pain. Patient states that since last night he has had right sided rib pain. Patient states that he was helping his daughter with some kitchen cabinets but they were all light to move and afterwards he developed right sided low rib pain. Patient states that now he is having pain with breathing and palpation of the right ribs. Patient denies any falls. Patient denies any head strike or loss of consciousness. Patient denies any syncope. Patient denies any chest pain or shortness of breath. Patient denies any other complaints at this time. Relieving factors: none Associated symptoms: denies other symptoms Related Data Home Medications ?Medication ?Instructions ?Recorded ?Confirmed aspirin 81 mg tablet,delayed 81 mg PO DAILY 09/13/20 1 release cholecalciferol (vitamin D3) 25 25 mcg PO DAILY 08/30/25 mcg (1,000 unit) tablet magnesium oxide 400 mg PO DAILY 09/13/20 vitamin E (dl, acetate) 45 mg (100 100 unit PO DAILY 1 08/30/25 unit) capsule blood sugar diagnostic #10 ea 01/08/21 08/30/25 zinc acetate 25 mg (zinc) capsule 25 mg PO DAILY 01/1208/30/25 vitamin B complex 1 tab PO DAILY 07/11/2508/17 Previous Rx's ?Medication ?Instructions ?Recorded ascorbic acid (vitamin C) 500 mg 500 mg PO BID 90 days #180 tabs 07/19/21 tablet (Vitamin C) blood sugar diagnostic #2 boxes 07/08/22 walking cane #1 ea 12/05/22 cyclobenzaprine 10 mg tablet 10 mg PO BEDTIME PRN musc le spasm 04/10/23 #14 tabs potassium chloride 20 mEq 20 meq PO DAILY #30 tabs tablet,extended release blood sugar diagnostic (OneTouch #2 ea 12/05/23 Ultra Test strips) omeprazole 20 mg capsule,delayed 20 mg PO QAM #90 caps 07/26/24 release rosuvastatin 40 mg tablet 40 mg PO DAILY #90 tabs 10/18 03/10 hydroxyzine HCl 10 mg tablet 10 mg PO BEDTIME PRN itch ing #10 01/06/25 tabs triamcinolone acetonide 0.5 % 1 appl topical BID #30 g lupillo 02/11/25 topical cream isosorbide mononitrate 30 mg 30 mg PO DAILY #90 tabs 0 02/28/25 tablet,extended release 24 hr furosemide 20 mg tablet 20 mg PO DAILY 90 days #90 t abs 04/02/25 bupropion HCl 150 mg 24 hr tablet, 150 mg PO QAM #30 t abs 04/27/25 extended release (Wellbutrin XL) metoprolol tartrate 25 mg tablet 25 mg PO BID htn 90 d ays #180 tabs 04/27/25 empagliflozin 25 mg tablet 25 mg PO DAILY #90 tabs glipizide 10 mg tablet, extended 10 mg PO DAILY #90 ta bs 06/03/25 release 24 hr dulaglutide 3 mg/0.5 mL 3 mg (0.5 mL) subcut QWEEK # 2 mL 08/19/25 [facility] duloxetine 30 mg capsule,delayed 30 mg PO DAILY #30 ca ps 08/30/25 release finasteride 5 mg tablet (Proscar) 5 mg PO DAILY prosta te 90 days #90 09/01/25 tabs acetaminophen 500 mg capsule 1,000 mg (2 x 500 mg) PO Q8H PRN 09/18/25 fever or pain #14 caps morphine 15 mg immediate release 15 mg PO Q6H PRN pain #14 tabs 09/18/25 tablet lidocaine 5 % topical patch 2 patch topical DAILY #30 ea 09/30/25 Allergies Allergy/AdvReac Type Severity Reaction Status Date / Time Penicillins Allergy Mild Rash Verified 10/12/25 13:33 linagliptin (Tradjenta) AdvReac Mild diarrhea Verified 10/12/25 13:33 lisinopril AdvReac Mild Cough Verified 10/12/25 13:33 Review of Systems 2 Constitutional: Constitutional: Reports as per HPI Eyes: Eyes: Reports as per HPI ENT: Reports as per HPI Cardiovascular: Cardiovascular: Reports as per HPI Respiratory: Respiratory: Reports as per HPI Gastrointestinal: Gastrointestinal: Reports as per HPI Genitourinary: Genitourinary: Reports as per HPI Musculoskeletal: Musculoskeletal: Reports as per HPI Integumentary/Breasts: Skin/Breast: Reports as per HPI Neurologic: Reports as per HPI Psychiatric: Psychiatric: Reports as per HPI Endocrine: Endocrine: Reports as per HPI Hematologic/Lymphatic: Hematologic/Lymphatic: Reports as per HPI Allergic/Immunologic: Allergic/Immunologic: Reports as per HPI [facility] Past Medical History Attestation statement: The following information was validated with the patient. Source: old records reviewed and nursing notes reviewed Medical History Type 2 diabetes mellitus Chronic renal insufficiency Iron deficiency anemia HTN (hypertension) Sciatic nerve palsy, left BPH (benign prostatic hyperplasia) Fatty liver Renal calculi Adrenal adenoma GERD (gastroesophageal reflux disease) Hypercholesterolemia Coronary artery disease Overweight (BMI 25.0-29.9) Surgical History Hx of cystoscopy Hx of hand surgery History of transurethral resection of prostate History of esophagogastroduodenoscopy (EGD) H/O colonoscopy Hx of heart artery stent S/P CABG x 4 (~08/2019) History of prostate surgery History of arthroscopy of left shoulder History of tonsillectomy Family History Family History Father Diabetes Hypertension CVD (cardiovascular disease) Mother Diabetes Social History Social History Household Members: Family Housing: House Are you a primary client care coordinator to a significant other at home: No Do you presently have visiting nurse or other home services: No Alcohol intake: never Patient Tobacco Use Status: Former Tobacco user Tobacco use type: Cigarette Cigarette Packs Per Day: 1.5 Years Smoked: 25 Smoked in Last 30 Days: No e-Cigarette/Vaping Use: Never Used Second Hand Smoke Exposure: Yes Use of substances other than those prescribed or required for medical reasons: No Advance Directives: No Advance Directives Information Provided: Yes service: No Current occupational status: retired Cognitive needs: Yes (cane) Hearing needs: No Vision needs: Yes (perscription glasses) Physical Exam ED Vital Signs: Vital Signs - 24 hr 10/12/25 13:33 10/12/25 15:04 Temperature 97.7 F 98.3 F Pulse Rate 91 85 Respiratory Rate 16 16 Blood Pressure 125/75 135/76 Pulse Oximetry 94 95 Oxygen Delivery Method Room Air Room Air BMI result Body Mass Index 26.2 Const General: cooperative, no acute distress, alert and awake Nutritional Appearance: well nourished Orientation/consciousness: patient oriented x3 HENMT Head: Yes normal to inspection and Yes atraumatic Ears: hearing grossly normal bilaterally and external ears normal General nose exam: Normal external nose present, no nasal discharge noted and no epistaxis Face and sinus: Yes normal facial exam, No abrasion and No laceration Mouth: Normal oral and palatal mucosa present, no drooling and no muffled voice Eyes General: appearance normal, both eyes and all related structures Periorbital: periorbital findings normal Eyelids: Yes eyelids normal Conjunctivae: conjunctivae normal Pupils: Equal, round and reactive pupils present EOM: EOMs intact bilaterally Neck Neck: Yes normal visual inspection and Yes full ROM Chest Chest/axillae images: 2 1. pain with palpation to this area Resp Effort & Inspection: normal respiratory effort and able to speak in complete sentences Neuro General: patient oriented x3, moves all extremities and CN's II-XI intact bilaterally Cranial nerves: Yes Equal, round and reactive pupils present Cognition (Neuro): normal cognition Extrem General: Yes normal to inspection, Yes full ROM and Yes capillary refill normal Psych Appearance: grossly normal Mental Status: mental status grossly normal Affect: normal affect Attitude: cooperative Thought process: Normal thought process present Thought content: Normal thought content present Insight: Good insight present (Psych) Medical Decision Making Medical Decision Making MDM Narrative: Patient is an 79 year old assigned male at with a history of eczema, OA, neuropathy, DM, CKD, PVD, CRVO, CAD, HTN, BPH, GERD, and previous CABG presenting to the emergency department today with right sided rib pain. Patient's physical exam was as noted in the physical exam portion of this note. Patient's blood work was unremarkable. Patient's EKG was unremarkable. Patient's chest CT showed no acute process but did show several incidental findings that I discussed with the patient in great detail. Patient's clinical presentation is most consistent with musculoskeletal pain after assisting his daughter with cabinets. I explained my physical exam findings as well as all test results to the patient. I answered all questions asked by the patient. I stressed the importance of the patient taking his medication as directed (either prescribed or as the over the counter packaging recommends). I stressed the importance of the patient following up with his primary care provider. I stressed the importance of the patient returning to the emergency department immediately if his symptoms were to worsen or if he were to develop any dizziness, shortness of breath, difficulty breathing, chest pain, blurry vision, loss of vision, nausea, vomiting, abdominal pain, fever, chills, back pain, or any other complaints. Patient verbalized agreement and understanding with this treatment plan and discharge. Differential Diagnosis Differential Diagnoses: The differential diagnosis associated with the presentation includes Right rib pain Right rib contusion Right rib fracture Admission/Observation Consideration of admission/observation: Escalation of care including admission/observation considered Patient would have been admitted to the hospital had his work up had any findings where hospital admission was appropriate and his clinical presentation warranted hospital admission. Lab Data [facility] Lab Attestation statement: I reviewed the patient's lab results. My interpretation of these results are in the [facility] Rationale portion of this note. 10/12/25 14:09 10/12/25 14:09 Labs: Lab Results 10/12/25 Range/Units 14:09 WBC 7.1 (4.8-10.8) X10*3/uL RBC 4.90 (4.60-5.80) X10*6/uL Hgb 13.2 L (14.0-18.0) g/dl Hct 40.9 L (42.0-52.0) % MCV 83.5 (80.0-98.0) fL MCH 26.9 L (27.0-33.0) pg MCHC 32.3 (31.0-36.0) g/dl RDW 14.1 (11.0-16.0) % Plt Count 189 (160-400) X10*3/uL MPV 9.5 (9.4-12.4) fL Immature Gran % (Auto) 0.1 (0.0-0.4) % Neut % (Auto) 74.3 H (45-73) % Lymph % (Auto) 18.1 L (20-40) % [place] % (Auto) 6.0 (2-11) % Eos % (Auto) 0.7 (0-4) % Baso % (Auto) 0.8 (0-2) % Lymph # (Auto) 1.3 (1.2-4.9) X10*3/uL [place] # (Auto) 0.4 (0.1-1.2) X10*3/uL Eos # (Auto) 0.1 (0.0-0.4) X10*3/uL Baso # (Auto) 0.1 (0.0-0.2) X10*3/uL Abs Immat Gran (auto) 0.01 (0.00-0.03) X10*3/uL Absolute Neuts (auto) 5.3 (2.0-8.3) x10*3/uL Absolute Nucleated RBC 0.000 (0.0-0.012) X10*3/uL Nucleated RBC % (auto) 0.0 (0.0-0.2) /100WBC Sodium 139 (135-145) mmol/L Potassium 4.1 (3.3-5.1) mmol/L Chloride 104 (96-108) mmol/L Carbon Dioxide 25 (22-29) mmol/L Anion Gap 14 (12-20) BUN 18 H (9-16) mg/dL Creatinine 1.41 H (0.5-1.4) mg/dL Estim Creat Clear Calc 38.4 Estimated GFR 48 Random Glucose 274 H (60-115) mg/dL Calcium 9.5 (8.4-10.2) mg/dL Total Bilirubin 0.8 (0.0-1.0) mg/dL AST 22 (5-37) U/L ALT 20 (0-40) U/L Alkaline Phosphatase 63 (39-117) U/L Troponin I High Sens 4.2 (<3.5-35.0) ng/L Total Protein 6.9 (6.5-8.0) g/dL Albumin 4.3 (3.5-5.0) g/dL Independent Interpretation I performed an independent interpretation of an: EKG and CT Scan Interpretation: My interpretation is in agreement with the radiologist's impression of this imaging study as written below. EXAMINATION: CT CHEST WITHOUT CONTRAST CLINICAL INFORMATION: right sided rib pain COMPARISON: July 06, 2023 chest x-ray TECHNIQUE: Multidetector volumetric CT imaging of the chest was done. Axial MIP volume rendering provided. Sagittal and coronal reformatted images were obtained. This CT examination was performed using dose optimization techniques as appropriate, variously including the following: *Automated exposure control *Adjustment of mA and/or kV according to patient size (this includes techniques or standardized protocols for targeted exams where dose is matched to indication/reason for exam; i.e. extremities or head) *Use of iterative reconstruction technique FINDINGS: LUNGS: There is a calcified granuloma in the medial apex of the right upper lobe 6 mm in diameter. There is a faint groundglass density 6 mm in diameter with 1 mm central solid component in the posterior left apex (CT #6 image 31) MEDIASTINUM: The mediastinum is normal. CORONARY ARTERY CALCIFICATION: Densely calcified PLEURA: There is no pleural effusion. No pleural mass or thickening. AXILLA: No lymphadenopathy. UPPER ABDOMEN: There is a benign simple cyst in the posterior right kidney. There is a 2 cm right adrenal nodule measuring -8 Hounsfield units consistent with a benign lipid rich adrenal adenoma. There is a similar 17 mm nodule on the left. OSSEOUS STRUCTURES: Moderate degenerative changes are most advanced in the midthoracic spine and there is disc space narrowing, vacuum phenomena, degenerative endplate irregularities, and osteophytes. Wires related to median sternotomy are present. No rib fracture or deformity is identified. There is mild levoscoliosis. CT/CT chest wo IV con IMPRESSION: There is a part solid nodule in the left upper lobe measuring 5 mm in diameter. No further follow-up is indicated per Fleischner Society recommendations. No right-sided rib fracture or pleural/parenchymal abnormalities. Electronically signed by: Ricky Davalos MD 10/12/2025 02:32 PM EST Dictated By: Ricky Davalos MD Signed By: Electronically signed by Ricky Davalos MD 10/12/25 1432 I independently interpreted this EKG and am in agreement with the below findings: Vent. Rate: 89 BPM Atrial Rate: 89 BPM P-R Int: 166 ms QRS Dur: 84 ms QT Int: 376 ms P-R-T Axes: 21 -30 -21 degrees QTcB Int: 457 ms Normal sinus rhythm When compared with ECG of 18-Sep-2025 16:12, No significant change was found TD/TT: 10/12/25 4507 Family Manager: Radiology Impression Discussion of test interpretation with radiology: I have reviewed the radiologist's reading. Discharge Plan Discharge Clinical Impression: Pain in rib Patient Disposition: Home, Self-Care Instructions: Thoracic Pain (ED) Additional Instructions: Your work up today was reassuring there is no EMERGENT cause for your symptoms. Your CT scan of the chest showed some incidental findings that you should follow up with your primary care provider about including: * Calcified granuloma in the medial apex of the right upper lobe (6mm in diameter) * Faint groundglass density 6mm in diameter with 1 mm of central solid component in the posterior left lung apex * Simple cyst of the right posterior kidney * 2 cm right adrenal nodule measuring -8 Hounsfield units * 17 mm adrenal nodule on the left IF you are prescribed home medications and/or you are taking over the counter medications at home - it is very important you continue to do so as prescribed / directed unless told otherwise by a healthcare provider. Follow up with your primary care provider. Do your best to stay well hydrated and rest. Return to the emergency department immediately if your symptoms worsen or if you develop any numbness, tingling, dizziness, shortness of breath, difficulty breathing, chest pain, blurry vision, loss of vision, nausea, vomiting, abdominal pain, fever, chills, back pain, or any other complaints. Please see the information below about our Patient Portal. If you are not yet enrolled in the [facility] Patient Portal, you will receive an enrollment email invitation following your visit to any [facility] care setting. You may also self-enroll in the Patient Portal by visiting our website: [email or web address] The following information is required to access the Patient Portal: - Your [facility] Medical Record Number - Your personal home email address (must match what is in your electronic medical record, Registration staff can assist with this) - Name - Date of Capabilities of the Patient Portal: - Message some providers - View upcoming appointments - Access your health summary, medical history, and visit history - View current conditions and allergies - View procedure and lab results - View your medications, including guidelines, side effects, and precautions - Complete pre-appointment questionnaires requested by your provider - Ready summary reports of your office visits and procedures To access the Patient Portal Mobile [employer], follow these directions: - Search [employer] in the [employer] Store or [employer] Store - Download the [employer] - Search for [facility] - Enter your login/password Prescriptions: No Action (DME) blood sugar diagnostic Strip See Rx Instructions .ROUTE .MEDSUPPLY Qty: 10 Rx Instructions: As directed ascorbic acid (vitamin C) [Vitamin C] 500 mg tablet 500 mg PO BID 90 Days Qty: 180 3RF (DME) walking cane See Rx Instructions .Route .MEDSUPPLY Qty: 1 0RF Rx Instructions: As directed omeprazole 20 mg capsule,delayed release(DR/EC) 20 mg PO QAM Qty: 90 2RF isosorbide mononitrate 30 mg tablet extended release 24 hr 30 mg PO DAILY Qty: 90 3RF furosemide 20 mg tablet 20 mg PO DAILY 90 Days Qty: 90 2RF lidocaine 5 % adhesive patch,medicated 2 patch topical DAILY Qty: 30 0RF Rx Instructions: leave on most painful area for up to 12 hrs potassium chloride 20 mEq tablet extended release 20 meq PO DAILY Qty: 30 0RF vitamin B complex Tablet 1 tab PO DAILY morphine 15 mg tablet 15 mg PO Q6H PRN (Reason: pain) Qty: 14 0RF Rx Instructions: Partial Fill upon patient request. acetaminophen 500 mg capsule 1,000 mg PO Q8H PRN (Reason: fever or pain) Qty: 14 0RF cholecalciferol (vitamin D3) 25 mcg (1,000 unit) tablet 25 mcg PO DAILY aspirin 81 mg tablet,delayed release (DR/EC) 81 mg PO DAILY magnesium oxide 400 mg magnesium tablet 400 mg PO DAILY vitamin E (dl, acetate) 100 unit capsule 100 unit PO DAILY (DME) blood sugar diagnostic Strip See Rx Instructions .ROUTE .MEDSUPPLY Qty: 2 3RF Rx Instructions: As directed check blood sugar 2 times a day cyclobenzaprine 10 mg tablet 10 mg PO BEDTIME PRN (Reason: muscle spasm) Qty: 14 0RF (DME) OneTouch Ultra Test Strip See Rx Instructions .Route Qty: 2 3RF Rx Instructions: As directed check bs BID zinc acetate 25 mg (zinc) capsule 25 mg PO DAILY rosuvastatin 40 mg tablet 40 mg PO DAILY Qty: 90 3RF metoprolol tartrate 25 mg tablet 25 mg PO BID 90 Days Qty: 180 2RF bupropion HCl [Wellbutrin XL] 150 mg tablet extended release 24 hr 150 mg PO QAM Qty: 30 5RF triamcinolone acetonide 0.5 % cream 1 appl topical BID Qty: 30 0RF empagliflozin 25 mg tablet 25 mg PO DAILY Qty: 90 4RF glipizide 10 mg tablet extended release 24hr 10 mg PO DAILY Qty: 90 2RF hydroxyzine HCl 10 mg tablet 10 mg PO BEDTIME PRN (Reason: itching) Qty: 10 0RF Trulicity 3 mg/0.5 mL pen injector 3 mg subcut QWEEK Qty: 2 3RF Rx Instructions: takes on Sundays finasteride [Proscar] 5 mg tablet 5 mg PO DAILY 90 Days Qty: 90 3RF duloxetine 30 mg capsule,delayed release(DR/EC) 30 mg PO DAILY Qty: 30 3RF Referrals: Zay,Aaron Reilly MD [Primary Care Provider, Internal Medicine] Interventions: ED Discharge Assessment Last Done: 10/12/25 15:04 Discharge Date/Time: 10/12/25 15:05 Print Language: Russian
--- NOTE | 2025-10-12 13:42 | ECG_ITS ---
Test Reason : RIB PAIN Blood Pressure : */* mmHG Vent. Rate : 89 BPM Atrial Rate : 89 BPM P-R Int : 166 ms QRS Dur : 84 ms QT Int : 376 ms P-R-T Axes : 21 -30 -21 degrees QTcB Int : 457 ms Normal sinus rhythm Left axis deviation Inferior infarct (cited on or before 19-Feb-2023) Abnormal ECG When compared with ECG of 18-Sep-2025 16:12, No significant change was found Referred By: Sisi Acevedo Electronically Signed By: Luciano Marino
[2025-10-12 14:12] LABS: MANUAL DIFF FLAG NO
[2025-10-12 14:15] LABS: Hematocrit 40.9 % (42.0-52.0); Hemoglobin 13.2 g/dl (14.0-18.0); Imm Gran Abs Auto 0.01 X10*3/uL (0.00-0.03); Imm Gran Pct Auto 0.1 % (0.0-0.4); Lymphocytes Absolute Auto 1.3 X10*3/uL (1.2-4.9); Mean Corpuscular HGB Conc 32.3 g/dl (31.0-36.0); Mean Corpuscular Hemoglobin 26.9 pg (27.0-33.0); Mean Corpuscular Volume 83.5 fL (80.0-98.0); NRBC Abs Auto 0.000 X10*3/uL (0.0-0.012); NRBC Pct Auto 0.0 /100WBC (0.0-0.2); Platelet Count 189 X10*3/uL (160-400); Red Blood Count 4.90 X10*6/uL (4.60-5.80); White Blood Count 7.1 X10*3/uL (4.8-10.8)
[2025-10-12 14:30] LABS: Alanine Aminotransferase 20 U/L (0-40); Albumin Level 4.3 g/dL (3.5-5.0); Alkaline Phosphatase 63 U/L (39-117); Anion Gap 14 (12-20); Aspartate Amino Transferase 22 U/L (5-37); Blood Urea Nitrogen 18 mg/dL (9-16); Calcium 9.5 mg/dL (8.4-10.2); Carbon Dioxide 25 mmol/L (22-29); Chloride 104 mmol/L (96-108); Creatinine Clr Calc Pharmacy 38.4; Estimated Glomerular Filt Rate 48; Potassium 4.1 mmol/L (3.3-5.1); Sodium 139 mmol/L (135-145); Total Protein 6.9 g/dL (6.5-8.0)
[2025-10-12 14:37] LABS: Troponin-I High Sensitivity 4.2 ng/L (<3.5-35.0)
[2025-10-12 15:04] VITALS: BP 135/76; PULSE 85; RESP 16; TEMP 36.8; O2SAT 95
== END 2025-10-12 15:05 | disposition home or self-care (01) ==
PROVIDERS: Physician Assistant Medical; Emergency Provider Emergency Medicine; PCP Internal Medicine
DX: R07.89 Other chest pain (principal); I12.9 Hypertensive chronic kidney disease with stage 1 through stage 4 chronic kidney disease, or unspecified chronic kidney disease; E11.22 Type 2 diabetes mellitus with diabetic chronic kidney disease; N18.9 Chronic kidney disease, unspecified; E11.40 Type 2 diabetes mellitus with diabetic neuropathy, unspecified; I25.10 Atherosclerotic heart disease of native coronary artery without angina pectoris; Z95.1 Presence of aortocoronary bypass graft; Z88.0 Allergy status to penicillin
CPT/HCPCS: 36415; 71250; 80053; 84484; 85025; 93005; 99284

== ENCOUNTER → 2025-10-12 13:42 | Outpatient (BNV) | payer OTHER, SELFPAY | PROVIDERS: Emergency Provider Emergency Medicine; PCP Internal Medicine; Visit Provider Internal Medicine Cardiovascular Disease | DX: I25.2 Old myocardial infarction (principal) | CPT/HCPCS: 93010 ==

== ENCOUNTER → 2025-10-12 13:42 | Outpatient (BNV) | payer OTHER, SELFPAY | PROVIDERS: Emergency Provider Emergency Medicine; PCP Internal Medicine; Visit Provider Radiology Diagnostic Radiology | DX: R91.1 Solitary pulmonary nodule (principal) | CPT/HCPCS: 71250 ==

== ENCOUNTER 2025-10-14 07:45 | Emergency (ER) | payer OTHER, SELFPAY ==
--- NOTE | ~2025-10-14 | CT_ITS ---
EXAMINATION: CT ABDOMEN AND PELVIS WITH CONTRAST CLINICAL INFORMATION: Right upper quadrant pain COMPARISON: CT 10/16/2020 TECHNIQUE: Multidetector volumetric images were obtained from the superior aspect of the liver through the pubic symphysis following administration 85 mL of Omnipaque 350 intravenous contrast. Sagittal and coronal reformatted images were obtained on the technologist's workstation. Oral contrast: No This CT examination was performed using dose optimization techniques as appropriate, variously including the following: *Automated exposure control *Adjustment of mA and/or kV according to patient size (this includes techniques or standardized protocols for targeted exams where dose is matched to indication/reason for exam; i.e. extremities or head) *Use of iterative reconstruction technique FINDINGS: LUNG BASES: Mild bibasilar dependent changes. LIVER, GALLBLADDER, BILE DUCTS: Slight low liver attenuation suggesting mild hepatic steatosis.No focal hepatic lesion or biliary ductal dilatation is present. The gallbladder is unremarkable with no evidence of radiopaque gallstones, gallbladder wall thickening, or obvious pericholecystic inflammatory changes. CBD caliber is within normal limits. PANCREAS: Unremarkable. No acute inflammatory changes seen. No main pancreatic duct dilatation. SPLEEN: Unremarkable. ADRENAL GLANDS: Fullness of the right adrenal gland, likely representing a nodule measuring 2.4 cm, unchanged from previous. Hounsfield measurements 39. KIDNEYS AND URETERS: Symmetric enhancement. Small right renal cyst. No renal or ureteral calculi. No hydronephrosis. BLADDER: Unremarkable. GASTROINTESTINAL TRACT: Stomach is nondistended. No dilated small bowel loops. Moderate-large volume stool in the large colon. There is diverticulosis of the descending and sigmoid colon. There is wall thickening of the sigmoid colon and the junction of the descending colon. No pericolonic inflammatory changes identified. These findings could be related to lack of distention versus colitis/diverticulitis. No organized fluid collection is seen. Appendix is normal. Peritoneum: No ascites. No fluid collection. No pneumoperitoneum. No significant mesenteric inflammatory changes. ABDOMINAL WALL: Small fat-containing left inguinal hernia. LYMPH NODES: No bulky adenopathy is seen. VASCULAR: Extensive abdominal aortic atherosclerotic calcification. No aortic aneurysm is seen. PELVIC VISCERA: Small TURP defect in the prostate is seen. OSSEOUS STRUCTURES: Multilevel thoracolumbar spondylosis. No suspicious lytic lesion. CT/CT abdomen pelvis w IV con IMPRESSION: * Diverticulosis of the descending and sigmoid colon. Wall thickening of the sigmoid colon could be related to lack of distention versus colitis/diverticulitis. No pericolonic inflammatory changes seen. * Right adrenal nodule measuring 2.4 cm, stable. This is indeterminate on the current study. Consider dedicated adrenal mass protocol CT for further characterization. Fleischner guidelines were followed. Electronically signed by: Cesar Golden MD 10/14/2025 12:05 PM [facility]
[2025-10-14 07:57] VITALS: BP 146/81; PULSE 90; RESP 18; TEMP 36.1; O2SAT 96; BMI 25.3
--- OUTSIDE RECORDS SUMMARY | 2025-10-14 08:43 | XMS_ITS | Patient Health Record ---
Author Organization [facility] Address [address] [place] [address] Care Team Providers Care Chemical Weigher Name Role Phone Aaron Collazo MD Primary Care Provider Elbert Hanson [phone] Allergies Allergen (clinical drug ingredient) Drug/Non Drug Allergy documented on EMR Reaction Allergy Type Onset Date Status Penicillin Unknown Drug Allergy Active Reason For Referral No Information Medications Medication SIG (Take, Route, Frequency, Duration) Notes Start Date End Date Status Atorvastatin Calcium 20 MG Tablet 1 tablet Orally Once a day Active glipiZIDE XL 2.5 MG Tablet Extended Release 24 Hour 1 tablet Orally Once a day Active Vitamin B-12 1000 MCG Tablet 1 tablet Orally twice a day Active Alfuzosin HCl ER 10 MG Tablet Extended Release 24 Hour 1 tablet immediately after the same meal Orally Once a day Active Vitamin E 400 UNIT Capsule 1 capsule Ora lly Once a day; Duration: 30 day(s) Active hydroCHLOROthiazide 12.5 MG Capsule 1 tablet Orally Once a day Not-Taking/GA N metFORMIN HCl 500 MG Tablet 1 tablet wit h meals Orally three x a day Active Onglyza 5 MG Tablet 1 tablet Orally Once a day Not-Taking/GA N Metoprolol Tartrate 100 MG Tablet 1 tablet with food Oral Twice a day Active Omeprazole 20 MG Capsule Delayed Release 1 capsule Orally Once a day Active Vitamin D 1000 UNIT Tablet 1 tablet Oral ly Once a day Active Aspir-81 81 MG Tablet Delayed Release 1 tablet Orally Once a day Active Immunizations Vaccine Route Administration Date Status Comme nts Flu vaccine no Preserv 3 and > Unknown 08/22/2015 Admin istered Influenza Unknown 08/17/2018 Administered Influenza Unknown 10/09/2021 Administered Influenza Unknown 08/17/2022 Administered Social History Social History Additional Details Category Social Info Options Details Miscellaneous: Marital status: Occupation: retired Section Notes: Nonsmoker; no sig alcohol Nonsmoker; no sig alcohol Nonsmoker; no sig alcohol Nonsmoker; no sig alcohol Problems Problem Type SNOMED Code ICD Code Onset Dates Problem Status W/U Status Risk Notes Problem Screening for malignant neoplasm of colon (427598917) Encounter for screening for malignant neoplasm of colon (Z12.11) Active confirmed Problem Screening for malignant neoplasm of rectum (149368371) Encounter for screening for malignant neoplasm of rectum (Z12.12) Active confirmed Problem Iron deficiency anemia (46681712) Iron deficiency anemia (D50.9) Active confirmed Problem Gastroesophageal reflux disease without esophagitis (968800294) Gastroesophageal reflux disease without esophagitis (K21.9) Active confirmed Problem Long-term current use of antiplatelet drug (672223242531783) Long-term use of aspirin therapy (Z79.82) Active confirmed Problem Gastritis (6336472) Gastritis (K29.70) Active c onfirmed Problem Gastroesophageal reflux disease (745362404) GERD (gastroesophageal reflux disease) (K21.9) Active confirmed Problem History of adenomatous polyp of colon (293876022) Hx of adenomatous colonic polyps (Z86.010) Active confirmed Problem Diverticulosis of colon (632631322) Diverticulosis of colon (K57.30) Active confirmed Plan Of Treatment Future Test Test Name Order Date COLONOSCOPY 03/09/2019 UPPER GI ENDOSCOPY 06/05/2022 COLONOSCOPY 06/05/2022 Insurance Providers Payer Name Payer Address Payer Phone Subscriber Number Group Number Insured Name Patient Relationship to Insured Coverage Start Date Coverage End Date MEDICARE OF [place] [address] [place] [phone] [id number] MAGDY KLEIN Self - patient is the insured MEDICAID OF [facility] [address] [place] [address] [id number] MAGDY KLEIN Self - patient is the insured Medical (General) History Medical History History ICD Code 10/20/2008 colonoscopy--- ne gative except for diverticulosis and internal hemorrhoids Coronary artery disease--[address] Will--most recent was in approx 2007 NIDDM Hypertension History of kidney stones Denies DE,CVA,Lung disease,renal disease GERD--EGD with Dr. Bruce in [...]
[2025-10-14 09:09] LABS: MANUAL DIFF FLAG NO
[2025-10-14 09:15] LABS: Hematocrit 42.3 % (42.0-52.0); Hemoglobin 13.6 g/dl (14.0-18.0); Imm Gran Abs Auto 0.02 X10*3/uL (0.00-0.03); Imm Gran Pct Auto 0.2 % (0.0-0.4); Lymphocytes Absolute Auto 1.9 X10*3/uL (1.2-4.9); Mean Corpuscular HGB Conc 32.2 g/dl (31.0-36.0); Mean Corpuscular Hemoglobin 26.5 pg (27.0-33.0); Mean Corpuscular Volume 82.5 fL (80.0-98.0); NRBC Abs Auto 0.000 X10*3/uL (0.0-0.012); NRBC Pct Auto 0.0 /100WBC (0.0-0.2); Platelet Count 202 X10*3/uL (160-400); Red Blood Count 5.13 X10*6/uL (4.60-5.80); White Blood Count 8.0 X10*3/uL (4.8-10.8)
--- NOTE | 2025-10-14 09:35 | ED.GENADULT ---
HPI - General Adult General Chief complaint: Abdominal Pain Stated complaint: right abd pain Time Seen by Provider: 10/14/25 07:55 Source: patient and family (son) Mode of arrival: ambulatory Limitations: no limitations History of Present Illness ED Provider: DIVYA Krueger HPI narrative: Chief Complaint: ?Pain over the right side near my ribs / liver.? History of Present Illness: 79-year-old male with past medical history of rotator cuff tear, memory impairment, osteoarthritis, diabetes mellitus, chronic kidney disease, hypertension, cervical radiculopathy, and hyperlipidemia . Patient presents with right-sided upper quadrant pain that began on Friday. Pain is localized near the lower ribs/liver region and is absent on the left side. Pain is exacerbated by deep inspiration and coughing. Patient reports mild shortness of breath but denies chest pain, changes in urinary/bowel habits, nausea, or vomiting. No recent illness. No history of blood clots. Takes daily aspirin as prescribed by another provider. Patient was evaluated in the ED on Friday for similar complaints; work-up reportedly unrevealing and patient was discharged with a diagnosis of rib pain. Patient expresses concern about taking additional analgesics due to possible liver involvement. Also notes chronic shoulder/rib pain for approximately one month, for which surgery was cancelled. Related Data Home Medications ?Medication ?Instructions ?Recorded ?Confirmed aspirin 81 mg tablet,delayed 81 mg PO DAILY 09/13/20 08/30/25 release cholecalciferol (vitamin D3) 25 25 mcg PO DAILY 09/13/20 08/30/25 mcg (1,000 unit) tablet magnesium oxide 400 mg PO DAILY 09/13/20 08/30/25 vitamin E (dl, acetate) 45 mg (100 100 unit PO DAILY 09/13/20 08/30/25 unit) capsule blood sugar diagnostic #10 ea 01/08/21 08/30/25 zinc acetate 25 mg (zinc) capsule 25 mg PO DAILY 01/12/24 08/30/25 vitamin B complex 1 tab PO DAILY 07/11/25 08/30/25 Previous Rx's ?Medication ?Instructions ?Recorded ascorbic acid (vitamin C) 500 mg 500 mg PO BID 90 days #180 tabs 07/19/21 tablet (Vitamin C) blood sugar diagnostic #2 boxes 07/08/22 walking cane #1 ea 12/05/22 cyclobenzaprine 10 mg tablet 10 mg PO BEDTIME PRN muscle spasm 04/10/23 #14 tabs potassium chloride 20 mEq 20 meq PO DAILY #30 tabs 04/30/23 tablet,extended release blood sugar diagnostic (OneTouch #2 ea 12/05/23 Ultra Test strips) omeprazole 20 mg capsule,delayed 20 mg PO QAM #90 caps 07/26/24 release rosuvastatin 40 mg tablet 40 mg PO DAILY #90 tabs 11/09/24 hydroxyzine HCl 10 mg tablet 10 mg PO BEDTIME PRN itching #10 01/06/25 tabs triamcinolone acetonide 0.5 % 1 appl topical BID #30 grams 02/11/25 topical cream isosorbide mononitrate 30 mg 30 mg PO DAILY #90 tabs 02/28/25 tablet,extended release 24 hr furosemide 20 mg tablet 20 mg PO DAILY 90 days #90 tabs 04/02/25 bupropion HCl 150 mg 24 hr tablet, 150 mg PO QAM #30 tabs 04/27/25 extended release (Wellbutrin XL) metoprolol tartrate 25 mg tablet 25 mg PO BID htn 90 days #180 tabs 04/27/25 empagliflozin 25 mg tablet 25 mg PO DAILY #90 tabs 06/03/25 glipizide 10 mg tablet, extended 10 mg PO DAILY #90 tabs 06/03/25 release 24 hr dulaglutide 3 mg/0.5 mL 3 mg (0.5 mL) subcut QWEEK #2 mL 08/19/25 subcutaneous pen injector (Trulicity) duloxetine 30 mg capsule,delayed 30 mg PO DAILY #30 caps 08/30/25 release finasteride 5 mg tablet (Proscar) 5 mg PO DAILY prostate 90 days #90 09/01/25 tabs acetaminophen 500 mg capsule 1,000 mg (2 x 500 mg) PO Q8H PRN 09/18/25 fever or pain #14 caps morphine 15 mg immediate release 15 mg PO Q6H PRN pain #14 tabs 09/18/25 tablet lidocaine 5 % topical patch 2 patch topical DAILY #30 ea 09/30/25 acetaminophen 325 mg tablet 650 mg (2 x 325 mg) PO Q6H PRN 10/14/25 (Tylenol) fever or pain #30 tabs levofloxacin 500 mg tablet 500 mg PO DAILY 7 days #7 tabs 10/14/25 metronidazole 500 mg tablet 500 mg PO BID 7 days #14 tabs 10/14/25 Allergies Allergy/AdvReac Type Severity Reaction Status Date / Time Penicillins Allergy Mild Rash Verified 10/14/25 07:57 linagliptin (Tradjenta) AdvReac Mild diarrhea Verified 10/14/25 07:57 lisinopril AdvReac Mild Cough Verified 10/14/25 07:57 Review of Systems Review of Systems: Yes all other systems are reviewed and are negative [facility] Past Medical History Attestation statement: The following information was validated with the patient. Source: old records reviewed and nursing notes reviewed Medical History Type 2 diabetes mellitus Chronic renal insufficiency Iron deficiency anemia HTN (hypertension) Sciatic nerve palsy, left BPH (benign prostatic hyperplasia) Fatty liver Renal calculi Adrenal adenoma GERD (gastroesophageal reflux disease) Hypercholesterolemia Coronary artery disease Overweight (BMI 25.0-29.9) Surgical History Hx of cystoscopy Hx of hand surgery History of transurethral resection of prostate History of esophagogastroduodenoscopy (EGD) H/O colonoscopy Hx of heart artery stent S/P CABG x 4 (~08/2019) History of prostate surgery History of arthroscopy of left shoulder History of tonsillectomy Family History Family History Father Diabetes Hypertension CVD (cardiovascular disease) Mother Diabetes Social History Social History Household Members: Family Housing: House Are you a primary women's health care nurse practitioner to a significant other at home: No Do you presently have visiting nurse or other home services: No Alcohol intake: never Patient Tobacco Use Status: Former Tobacco user Tobacco use type: Cigarette Cigarette Packs Per Day: 1.5 Years Smoked: 25 e-Cigarette/Vaping Use: Never Used Second Hand Smoke Exposure: Yes service: No Current occupational status: retired Cognitive needs: Yes (cane) Hearing needs: No Vision needs: Yes (perscription glasses) Physical Exam ED Vital Signs: Vital Signs - 24 hr 10/14/25 07:57 10/14/25 14:02 Temperature 97 F 98.2 F Pulse Rate 90 88 Respiratory Rate 18 16 Blood Pressure 146/81 H 112/74 Pulse Oximetry 96 96 Oxygen Delivery Method Room Air Room Air BMI result Body Mass Index 25.3 Course Reevaluation(s) Reevaluation #1: Patient's CBC unremarkable. Chemistry with no acute findings needing intervention chronically elevated BUN and creatinine however improved from previous labs. Patient's D-dimer 166 low suspicion no indication for CTA at this time. CT abdomen pelvis with diverticulosis of the descending colon and sigmoid. Wall thickening of the sigmoid calling could be related to lack of distention versus colitis/diverticulitis. No pericolonic inflammation changes. Given that patient is complaining of significant discomfort and abdominal pain in the right upper quadrant that has not been improving I will give him a course of Augmentin. Right adrenal nodule noted. UA still pending Time: 13:25 Reevaluation #2: Did not give us a UA and wanted to leave. Medications Administered Discontinued Medications Generic Name Dose Route Start Last Admin Trade Name Freq PRN Reason Stop Dose Admin Iohexol 100 ml 10/14/25 11:16 10/14/25 11:16 Iohexol 350 Mg/Ml 100 Ml Infus..Btl IV 10/14/25 11:17 85 ml ONCE ONE Administration Lidocaine 1 patch 10/14/25 10:11 10/14/25 10:33 Lidocaine 4 % Patch Adh..Patch TRANSDERMA 10/14/25 10:12 1 patch ONCE ONE Administration Protocol Medical Decision Making Medical Decision Making MDM Narrative: Patient with acute right upper quadrant rib/liver area pain, worsened by inspiration and cough, with mild shortness of breath and prior non-contrast CT chest showing adrenal findings.? Additional evaluation warranted to rule out intra-abdominal pathology and pulmonary embolism. Problem #1: Right upper quadrant pain / rib pain Assessment: Acute localized pain near liver and lower ribs; tender on exam; no associated N/V; mild SOB. Plan: D-dimer screening. CT abdomen without/with contrast as ordered. Analgesia as needed (offered; patient counseled that single dose unlikely to harm liver). If D-dimer positive, proceed with CT chest with contrast. Continue aspirin as prescribed by PCP. Problem #2: Chronic shoulder/rib pain Assessment: Patient reports one-month history; under care of Dr. Godfrey; surgery previously cancelled. Plan: Symptomatic relief with ED-administered analgesia today as tolerated. Follow-up with Dr. Godfrey for ongoing management. Imaging data relevant for visit: Prior (Friday): CT chest without contrast ? 2 cm right adrenal nodule; bilateral lipid-rich adrenal adenomas. Plan today: CT abdomen (to evaluate liver/gallbladder region).? If D-dimer is positive, CT chest with contrast to evaluate thoracic vessels. Laboratory data relevant for visit: Prior (Friday): CBC ? normocytic anemia (exact values not specified); BUN 18 mg/dL; Creatinine 1.41 mg/dL; random glucose 274 mg/dL; troponin negative; coagulation studies performed; no D-dimer drawn. Plans for today: D-dimer ordered; additional laboratory studies per ED protocol (nurse to draw blood). Lab Data 10/14/25 09:05 10/14/25 09:05 Labs: Lab Results 10/14/25 10/14/25 Range/Units 09:05 09:53 WBC 8.0 (4.8-10.8) X10*3/uL RBC 5.13 (4.60-5.80) X10*6/uL Hgb 13.6 L (14.0-18.0) g/dl Hct 42.3 (42.0-52.0) % MCV 82.5 (80.0-98.0) fL MCH 26.5 L (27.0-33.0) pg MCHC 32.2 (31.0-36.0) g/dl RDW 13.8 (11.0-16.0) % Plt Count 202 (160-400) X10*3/uL MPV 10.0 (9.4-12.4) fL Immature Gran % (Auto) 0.2 (0.0-0.4) % Neut % (Auto) 64.1 (45-73) % Lymph % (Auto) 23.3 (20-40) % Tompkins % (Auto) 9.0 (2-11) % Eos % (Auto) 2.5 (0-4) % Baso % (Auto) 0.9 (0-2) % Lymph # (Auto) 1.9 (1.2-4.9) X10*3/uL Tompkins # (Auto) 0.7 (0.1-1.2) X10*3/uL Eos # (Auto) 0.2 (0.0-0.4) X10*3/uL Baso # (Auto) 0.1 (0.0-0.2) X10*3/uL Abs Immat Gran (auto) 0.02 (0.00-0.03) X10*3/uL Absolute Neuts (auto) 5.2 (2.0-8.3) x10*3/uL Absolute Nucleated RBC 0.000 (0.0-0.012) X10*3/uL Nucleated RBC % (auto) 0.0 (0.0-0.2) /100WBC D-Dimer High Sensitivty 166 NG/ML Sodium 139 (135-145) mmol/L Potassium 3.9 (3.3-5.1) mmol/L Chloride 105 (96-108) mmol/L Carbon Dioxide 25 (22-29) mmol/L Anion Gap 13 (12-20) BUN 17 H (9-16) mg/dL Creatinine 1.20 (0.5-1.4) mg/dL Estim Creat Clear Calc 43.5 Estimated GFR 58 Random Glucose 194 H (60-115) mg/dL Calcium 9.7 (8.4-10.2) mg/dL Magnesium 2.2 (1.6-2.6) mg/dL Total Bilirubin 0.8 (0.0-1.0) mg/dL AST 20 (5-37) U/L ALT 16 (0-40) U/L Alkaline Phosphatase 64 (39-117) U/L Total Protein 7.2 (6.5-8.0) g/dL Albumin 4.4 (3.5-5.0) g/dL Lipase 32 (8-78) U/L Tests considered The following testing was considered but not selected: Imaging data relevant for visit: Prior (Friday): CT chest without contrast ? 2 cm right adrenal nodule; bilateral lipid-rich adrenal adenomas. Plan today: CT abdomen (to evaluate liver/gallbladder region).? If D-dimer is positive, CT chest with contrast to evaluate thoracic vessels. Critical Care Time Critical Care Time Critical Care Time: Yes Total Critical Care Time: 35 Attestation: I attest to this time spent taking care of the patient, obtaining history, physical, reviewing labs, imaging, treatment of patients condition +/- specialist/hospitalist consult +/- procedure Discharge Plan Discharge Clinical Impression: Abdominal pain, RUQ, Diverticulitis Patient Disposition: Home, Self-Care Instructions: Diverticulitis (DC), Diverticulitis Diet (ED), Abdominal Pain (ED) Additional Instructions: Take your medications as prescribed. If you were prescribed antibiotics today, it is important that you take your medication to their entirety, do not skip any doses, do not finish them early. Follow-up with your primary care provider this week. Return to the emergency department with new or worsening symptoms. Such as fevers, chills, chest pain, shortness of breath, nausea, vomiting, dizziness, headache, vision changes, lethargy In case of emergency call 911 CT/CT abdomen pelvis w IV con IMPRESSION: * Diverticulosis of the descending and sigmoid colon. Wall thickening of the sigmoid colon could be related to lack of distention versus colitis/diverticulitis. No pericolonic inflammatory changes seen. * Right adrenal nodule measuring 2.4 cm, stable. This is indeterminate on the current study. Consider dedicated adrenal mass protocol CT for further characterization. Prescriptions: New levofloxacin 500 mg tablet 500 mg PO DAILY 7 Days Qty: 7 0RF metronidazole 500 mg tablet 500 mg PO BID 7 Days Qty: 14 0RF acetaminophen [Tylenol] 325 mg tablet 650 mg PO Q6H PRN (Reason: fever or pain) Qty: 30 0RF No Action (DME) blood sugar diagnostic Strip See Rx Instructions .ROUTE .MEDSUPPLY Qty: 10 Rx Instructions: As directed ascorbic acid (vitamin C) [Vitamin C] 500 mg tablet 500 mg PO BID 90 Days Qty: 180 3RF (DME) walking cane See Rx Instructions .Route .MEDSUPPLY Qty: 1 0RF Rx Instructions: As directed omeprazole 20 mg capsule,delayed release(DR/EC) 20 mg PO QAM Qty: 90 2RF isosorbide mononitrate 30 mg tablet extended release 24 hr 30 mg PO DAILY Qty: 90 3RF furosemide 20 mg tablet 20 mg PO DAILY 90 Days Qty: 90 2RF lidocaine 5 % adhesive patch,medicated 2 patch topical DAILY Qty: 30 0RF Rx Instructions: leave on most painful area for up to 12 hrs potassium chloride 20 mEq tablet extended release 20 meq PO DAILY Qty: 30 0RF vitamin B complex Tablet 1 tab PO DAILY morphine 15 mg tablet 15 mg PO Q6H PRN (Reason: pain) Qty: 14 0RF Rx Instructions: Partial Fill upon patient request. acetaminophen 500 mg capsule 1,000 mg PO Q8H PRN (Reason: fever or pain) Qty: 14 0RF cholecalciferol (vitamin D3) 25 mcg (1,000 unit) tablet 25 mcg PO DAILY aspirin 81 mg tablet,delayed release (DR/EC) 81 mg PO DAILY magnesium oxide 400 mg magnesium tablet 400 mg PO DAILY vitamin E (dl, acetate) 100 unit capsule 100 unit PO DAILY (DME) blood sugar diagnostic Strip See Rx Instructions .ROUTE .MEDSUPPLY Qty: 2 3RF Rx Instructions: As directed check blood sugar 2 times a day cyclobenzaprine 10 mg tablet 10 mg PO BEDTIME PRN (Reason: muscle spasm) Qty: 14 0RF (DME) OneTouch Ultra Test Strip See Rx Instructions .Route Qty: 2 3RF Rx Instructions: As directed check bs BID zinc acetate 25 mg (zinc) capsule 25 mg PO DAILY rosuvastatin 40 mg tablet 40 mg PO DAILY Qty: 90 3RF metoprolol tartrate 25 mg tablet 25 mg PO BID 90 Days Qty: 180 2RF bupropion HCl [Wellbutrin XL] 150 mg tablet extended release 24 hr 150 mg PO QAM Qty: 30 5RF triamcinolone acetonide 0.5 % cream 1 appl topical BID Qty: 30 0RF empagliflozin 25 mg tablet 25 mg PO DAILY Qty: 90 4RF glipizide 10 mg tablet extended release 24hr 10 mg PO DAILY Qty: 90 2RF hydroxyzine HCl 10 mg tablet 10 mg PO BEDTIME PRN (Reason: itching) Qty: 10 0RF Trulicity 3 mg/0.5 mL pen injector 3 mg subcut QWEEK Qty: 2 3RF Rx Instructions: takes on Sundays finasteride [Proscar] 5 mg tablet 5 mg PO DAILY 90 Days Qty: 90 3RF duloxetine 30 mg capsule,delayed release(DR/EC) 30 mg PO DAILY Qty: 30 3RF Referrals: Po,Aaron Reilly MD [Primary Care Provider, Internal Medicine] - 1 week Interventions: ED Discharge Assessment Last Done: 10/14/25 14:02 Discharge Date/Time: 10/14/25 14:03 Print Language: Kittitian
[2025-10-14 09:44] LABS: Alanine Aminotransferase 16 U/L (0-40); Albumin Level 4.4 g/dL (3.5-5.0); Alkaline Phosphatase 64 U/L (39-117); Anion Gap 13 (12-20); Aspartate Amino Transferase 20 U/L (5-37); Blood Urea Nitrogen 17 mg/dL (9-16); Calcium 9.7 mg/dL (8.4-10.2); Carbon Dioxide 25 mmol/L (22-29); Chloride 105 mmol/L (96-108); Creatinine Clr Calc Pharmacy 43.5; Estimated Glomerular Filt Rate 58; Lipase 32 U/L (8-78); Magnesium 2.2 mg/dL (1.6-2.6); Potassium 3.9 mmol/L (3.3-5.1); Sodium 139 mmol/L (135-145); Total Protein 7.2 g/dL (6.5-8.0)
[2025-10-14 10:18] LABS: D Dimer High Sensitivity 166 NG/ML
[2025-10-14] MEDS: Lidocaine 4 % Patch ADH..PATCH 1 PATCH TRANSDERMA (10:33)
[2025-10-14] MEDS: iohexoL 350 MG/ML 100 ML INFUS..BTL IV (11:16)
[2025-10-14 14:02] VITALS: BP 112/74; PULSE 88; RESP 16; TEMP 36.8; O2SAT 96
== END 2025-10-14 14:03 | disposition home or self-care (01) ==
PROVIDERS: Physician Assistant; Emergency Provider Emergency Medicine; PCP Internal Medicine
DX: K57.32 Diverticulitis of large intestine without perforation or abscess without bleeding (principal); R10.11 Right upper quadrant pain; R05.9 Cough, unspecified; Z79.899 Other long term (current) drug therapy
CPT/HCPCS: 36415; 74177; 80053; 83690; 83735; 85025; 85379; 99282; 99285; Q9967

== ENCOUNTER → 2025-10-14 10:52 | Outpatient (BNV) | payer OTHER, SELFPAY | PROVIDERS: PCP Internal Medicine; Visit Provider Radiology Diagnostic Ultrasound | DX: K57.30 Diverticulosis of large intestine without perforation or abscess without bleeding (principal); E27.9 Disorder of adrenal gland, unspecified | CPT/HCPCS: 74177 ==

== ENCOUNTER 2025-10-17 09:13 | Outpatient (REF) | payer OTHER, SELFPAY ==
--- NOTE | ~2025-10-17 | XR_ITS ---
EXAMINATION: XR RIBS, RIGHT CLINICAL INFORMATION: R07.9 - Chest pain, unspecified COMPARISON: July 14, 2023. Correlated to CT chest dated October 12, 2025 TECHNIQUE: AP chest. Oblique views, right hemithorax. FINDINGS: No gross consolidation, pleural effusion or pneumothorax. No hyperinflation. Cardiomediastinal silhouette size is normal with a round cardiac apex. Tortuosity and calcified plaques throughout the aorta. Sternal wires. Multilevel thoracolumbar spondylosis with an S-shaped curvature and rotatory component pronounced at the thoracolumbar junction. No acute deformity of the ribs right hemithorax. Degenerative changes in the right shoulder. Soft tissue calcifications at the right supraspinatus tendon insertion. XR/XR ribs RT min 3V w CXR1V IMPRESSION: No acute rib fracture, right hemithorax. No acute airspace disease. Multilevel thoracolumbar spondylosis and scoliosis. Atherosclerosis disease. Status post sternotomy with likely CABG procedure. Calcific tendinosis/tendinopathy, right supraspinatus. Electronically signed by: Gianluca Johnston MD 10/17/2025 11:19 AM [facility]
[2025-10-17 10:34] LABS: MANUAL DIFF FLAG NO
[2025-10-17 11:16] LABS: Hematocrit 46.1 % (42.0-52.0); Hemoglobin 14.7 g/dl (14.0-18.0); Imm Gran Abs Auto 0.02 X10*3/uL (0.00-0.03); Imm Gran Pct Auto 0.4 % (0.0-0.4); Lymphocytes Absolute Auto 1.3 X10*3/uL (1.2-4.9); Mean Corpuscular HGB Conc 31.9 g/dl (31.0-36.0); Mean Corpuscular Hemoglobin 26.7 pg (27.0-33.0); Mean Corpuscular Volume 83.8 fL (80.0-98.0); NRBC Abs Auto 0.000 X10*3/uL (0.0-0.012); NRBC Pct Auto 0.0 /100WBC (0.0-0.2); Platelet Count 214 X10*3/uL (160-400); Red Blood Count 5.50 X10*6/uL (4.60-5.80); Reticulocytes Absolute 0.055 X10*6/uL (0.026-0.095); White Blood Count 5.6 X10*3/uL (4.8-10.8)
[2025-10-17 11:41] LABS: Appearance Urine Clear; Glucose Urine UA >=1000 mg/dL (Negative); PH 5.5 (5.0-9.0); Specific Gravity - Urine >= 1.030 (1.005-1.025); UMIC TRIGGER UA YES
[2025-10-17 12:10] LABS: Thyroid Stimulating Hormone 1.22 uIU/mL (0.32-4.0)
[2025-10-17 12:11] LABS: Anion Gap 13 (12-20); Ferritin 25 ng/mL (20-250); Free T4 (Free Thyroxine) 1.21 ng/dL (0.71-1.85)
[2025-10-17 12:13] LABS: Cholesterol 256 mg/dL (<200); HDL Cholesterol 71 mg/dL (>40); Triglycerides 110 mg/dL (<150)
[2025-10-17 12:15] LABS: Alanine Aminotransferase 17 U/L (0-40); Albumin Level 4.8 g/dL (3.5-5.0); Alkaline Phosphatase 72 U/L (39-117); Aspartate Amino Transferase 26 U/L (5-37); Blood Urea Nitrogen 18 mg/dL (9-16); Calcium 9.8 mg/dL (8.4-10.2); Carbon Dioxide 28 mmol/L (22-29); Chloride 104 mmol/L (96-108); Cholesterol 255 mg/dL (<200); Estimated Glomerular Filt Rate 46; HDL Cholesterol 70 mg/dL (>40); Iron 80 mcg/dL (45-160); Percent Iron Saturation 23 % (15-50); Potassium 4.5 mmol/L (3.3-5.1); Sodium 140 mmol/L (135-145); Total Iron Binding Capacity 342 mcg/dL (228-428); Total Protein 7.9 g/dL (6.5-8.0); Triglycerides 109 mg/dL (<150); Unsaturated Iron Binding 262 ug/dL
[2025-10-17 12:23] LABS: Folate 15.0 ng/mL (> or = 4.0); Vitamin B12 1590 pg/mL (200-900)
[2025-10-17 12:25] LABS: Microalbum/Creatinine Ratio Ur 55.4 ug/mg cr (<30)
== END 2025-10-17 09:14 | disposition home or self-care (01) ==
LOC: HO.XRAY 09:13
PROVIDERS: Absent Provider Internal Medicine Hypertension Specialist; PCP Internal Medicine; Visit Provider Internal Medicine
DX: R07.9 Chest pain, unspecified (principal); E11.65 Type 2 diabetes mellitus with hyperglycemia; E78.00 Pure hypercholesterolemia, unspecified; I25.10 Atherosclerotic heart disease of native coronary artery without angina pectoris; K21.9 Gastro-esophageal reflux disease without esophagitis; M25.311 Other instability, right shoulder; K59.00 Constipation, unspecified
CPT/HCPCS: 36415; 71101; 80053; 80061; 81001; 82043; 82570; 82607; 82728; 82746; 83036; 83540; 84439; 84443; 85025; 85045; 99212

== ENCOUNTER 2025-10-17 09:13 | Outpatient (AMB) | payer OTHER, SELFPAY ==
[2025-10-17 09:24] VITALS: BP 134/70; PULSE 83; O2SAT 92; BMI 25.0
--- NOTE | 2025-10-17 09:24 | A.OFFPC_ITS ---
Vital Signs 10/17/25 09:24 Height 5 ft 6 in Weight 155 lb BMI 25.0 BP 134/70 Blood Pressure Location Lt brachial Position Sitting Pulse 83 Pulse Source Pulse Oximeter Pulse Oximetry (%) 92 Oxygen Delivery Method Room Air Intake Visit Reasons: Neck pain radiating down arm Allergies Penicillins Allergy (Mild, Verified 10/17/25 09:25) Rash linagliptin (Tradjenta) Adverse Reaction (Mild, Verified 10/17/25 09:25) diarrhea lisinopril Adverse Reaction (Mild, Verified 10/17/25 09:25) Cough Tobacco use date assessed: 08/30/25 Fall risk assessment: No Falls in past year Last assessed Fall Risk: 10/17/25 Dental Screening Dental Screen Date: 08/30/25 HPI HPI Comments History of Present Illness Details History of Present Illness The patient is an 79 year old individual presenting for a follow-up visit and management of multiple chronic conditions, as well as evaluation of new right- sided pain. The patient's past medical history is significant for hypercholesterolemia, GERD, BPH, coronary artery disease, diabetes mellitus, hypertension, anxiety disorder, and peripheral vascular disease. The patient had an emergency room visit on October 14 for right-sided upper quadrant abdominal pain. A CT of the abdomen and pelvis performed at that time revealed diverticulosis with wall thickening of the sigmoid colon, but no paracolonic inflammation. The patient was diagnosed with diverticulitis and was treated with Levaquin and metronidazole. For the past week, the patient has been experiencing a new pain over the right ribs, which started last Friday. The pain is exacerbated by coughing and turning. 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 The patient was prescribed morphine, of which the patient took two tablets. Associated with the onset of pain and medication use, the patient reports having had no bowel movements since last Friday. The patient also reports an episode of vomiting after taking ibuprofen. Chronic medical issues include right shoulder rotator cuff insufficiency, which causes pain that disturbs sleep. The patient's last eye exam in August 2025 showed chorioretinal scars but no diabetic retinopathy. The patient was also seen by urology for BPH in August. Regarding diabetes management, the patient's last hemoglobin A1c in August 2025 was 7.1%. Health Maintenance - The patient underwent an eye exam on [facility]20[facility], which showed no retinopathy but did reveal chorioretinal scars. - Follow-up with urology for BPH was com pleted on September 01. - The patient is advised to continue fol low-up with orthopedics for right shoulder rotator cuff insufficiency. - A CT scan of the chest revealed a 5 mm nodule in the left upper lobe, for which no further follow-up is currently indicated. 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 - Nutrition/Hydration: The patient repor ts drinking a lot of water and also drinks janie tea and coffee. Results - Labs from October 14: Mild anemia w ith hemoglobin of 13.6, normal electr olytes, creatinine of 1.2, GFR of 58, and blood sugar of 194. - Liver function tests were normal. - A D-dimer test indicated low suspicion . - Labs from August: Hemoglobin A1c was 7.1%. - Imaging from October 14: A CT of th e abdomen and pelvis showed diverticulosis with sigmoid wall thickening but no paracolonic inflammation. - A CTA was also performed. - A CT of the chest revealed a 5 mm spot in the left upper lobe. [facility] Medical History (Updated 10/17/25 @ 09:47 by Aaron Collazo MD) Chest pain Type 2 diabetes mellitus Chronic renal insufficiency Iron deficiency anemia HTN (hypertension) Sciatic nerve palsy, left BPH (benign prostatic hyperplasia) Fatty liver Renal calculi Adrenal adenoma GERD (gastroesophageal reflux disease) Hypercholesterolemia Coronary artery disease Overweight (BMI 25.0-29.9) Surgical History Hx of cystoscopy Hx of hand surgery History of transurethral resection of prostate History of esophagogastroduodenoscopy (EGD) H/O colonoscopy Hx of heart artery stent S/P CABG x 4 (~08/2019) History of prostate surgery History of arthroscopy of left shoulder History of tonsillectomy Family History Father Diabetes Hypertension CVD (cardiovascular disease) Mother Diabetes Social History Household Members: Family Housing: House Are you a primary respiratory care practitioner to a significant other at home: No Do you presently have visiting nurse or other home services: No Alcohol intake: never Patient Tobacco Use Status: Former Tobacco user Tobacco use type: Cigarette Cigarette Packs Per Day: 1.5 Years Smoked: 25 Packs Per Year: 38 e-Cigarette/Vaping Use: Never Used Second Hand Smoke Exposure: Yes service: No Current occupational status: retired Cognitive needs: Yes (cane) Hearing needs: No Vision needs: Yes (perscription glasses) Questionnaire Thrive Questionnaire Date Thrive assessed: 08/30/25 I am a: Patient What is your living situation today?: I choose not to answer this question Within the past 12 months, did the food you bought not last and you didn't have the money to get more?: I choose not to answer this question Within the past 12 months, did you worry whether your food would run out before you got money to buy more?: I choose not to answer this question Do you have trouble paying for medicines?: I choose not to answer this question Do you have trouble getting transportation to medical appointments?: No Do you have trouble paying your heating and electricity bill?: No Do you have trouble taking care of your child, family member or friend?: I choose not to answer this question Do you have trouble with day-to-day activities such as bathing, preparing meals, shopping, managing finances, etc.?: I choose not to answer this question Are you currently unemployed and looking for a job?: No Are you interested in more education?: No Please select the resources that you would like help with: None Currently or been in a relationship where the following occur: I choose not to answer THRIVE Score: 0 TRINH-7 AMB Questionnaire TRINH-7 Date TRINH - 7 assessed: 12/28/24 Source: Developed by Drs. Elbert Boogie, Esther Hilliard, Anurag Gupta and colleagues, with an educational elfego from [email or web address]. Review of Systems Narrative Review of Systems - Gastrointestinal: Reports right-sided pain, constipation for one week with no bowel movement, and an episode of vomiting after taking ibuprofen. - Genitourinary: Reports an unusual odor to the patient's urine. - Musculoskeletal: Reports right-sided rib pain that began one week ago, exacerbated by coughing and turning. - Also reports chronic right shoulder pain that interferes with sleep. - Denies any recent falls. - Integumentary: Denies any rash or redness over the painful area on the patient's side. - Constitutional: Reports dry mouth. Physical exam (Primary Care) Vital Signs: Last Vital Signs Pulse 83 10/17/25 09:24 BP 134/70 10/17/25 09:24 Pulse Ox 92 10/17/25 09:24 Oxygen Delivery Method Room Air 10/17/25 09:24 BMI result Body Mass Index 25.0 Tobacco/Smoking Status: Tobacco use Status Tobacco use date assessed 08/30/25 10/17/25 09:30 Patient Tobacco Use Status Former Tobacco user 10/17/25 09:30 Tobacco use type Cigarette 10/17/25 09:30 e-Cigarette/Vaping Use Never Used 10/17/25 09:30 Thrive Assessment: Date of Thrive Assessment Date Thrive assessed 08/30/25 10/17/25 09:30 Currently or been in a relationship where the following occur: I choose not to answer Narrative Physical Exam - Abdomen: Soft, non-distended. - Tenderness to palpation over the right lower rib cage. - No suprapubic or left lower quadrant tenderness. - Musculoskeletal: Examination of the torso reveals pain with turning. Const General: alert; No acute distress Eyes Conjunctivae: conjunctivae normal Resp Auscultation: clear to auscultation bilaterally Cardio Rate: regular rate Rhythm: regular rhythm GI Inspection: Yes normal to inspection Extrem General: Yes normal to inspection and No edema Coding Level of Care Code Complex visit Add On G2211 Diagnoses Coronary artery disease involving [place] coronary artery of [place] heart without angina pectoris I25.10 Associated angina: without angina Coronary Disease-Associated Artery/Lesion type: [place] artery [place] vs. transplanted heart: [place] heart Hypercholesterolemia E78.00 Type 2 diabetes mellitus with hyperglycemia, without long-term current use of insulin E11.65 Diabetes mellitus superintendent container terminal insulin use: without superintendent container terminal use Diverticular disease K57.90 Gastroesophageal reflux disease without esophagitis K21.9 Esophagitis presence: without esophagitis CKD (chronic kidney disease) stage 3, GFR 30-59 ml/min N18.30 Rotator cuff insufficiency of right shoulder M25.311 Right-sided chest pain R07.9 Constipation K59.00 Assessment & Plan Assessment & Plan (1) Coronary artery disease: Comment: CABG August [address] Rhodes-follows w/[facility] Code(s): I25.10 - Atherosclerotic heart disease of [place] coronary artery without angina pectoris Category: Medical Qualifiers: Associated angina: without angina Coronary Disease-Associated Artery/Lesion type: [place] artery [place] vs. transplanted heart: [place] heart Qualified Code(s): I25.10 - Atherosclerotic heart disease of [place] coronary artery without angina pectoris Plan: Control the cholesterol, weight, blood pressure, diabetes on aspirin 81 mg once a (2) Hypercholesterolemia: Code(s): E78.00 - Pure hypercholesterolemia, unspecified Category: Medical Plan: Avoid fried foods, chicken skin, eggs, butter margarine, pastries and meat. Be it pork or beef they have a lot of cholesterol patient does need new blood work on rosuvastatin 40 mg once a day (3) Type 2 diabetes mellitus with hyperglycemia: Code(s): E11.65 - Type 2 diabetes mellitus with hyperglycemia Category: Medical Qualifiers: Diabetes mellitus chcf insulin use: without superintendent container terminal use Qualified Code(s): E11.65 - Type 2 diabetes mellitus with hyperglycemia Plan: Decrease the amount of carbohydrate intake, pasta, bread, rice and potatoes are all sugar and that is aside from all the sweet stuff, remember that fruits are good but they are Sweet also. August 2025 hemoglobin A1c was 7.1. Patient is taking glipizide 10 mg once a day Jardiance 25 mg once a day Trulicity at 3 mg once a week (4) Diverticular disease: Code(s): K57.90 - Diverticulosis of intestine, part unspecified, without perforation or abscess without bleeding Category: Medical Plan: Patient was treated with antibiotics Levaquin and metronidazole on ER visit (5) GERD (gastroesophageal reflux disease): Code(s): K21.9 - Gastro-esophageal reflux disease without esophagitis Category: Medical Qualifiers: Esophagitis presence: without esophagitis Qualified Code(s): K21.9 - Gastro-esophageal reflux disease without esophagitis Plan: Avoid the foods that causes that usually spicy foods, tomato products, juices, coffee, soda and foods that your sensitive to. After eating do not lie down, allow 3-4 hours before in lie down. And keep the head of bed above 30 degrees to avoid the acid from going up. (6) CKD (chronic kidney disease) stage 3, GFR 30-59 ml/min: Code(s): N18.30 - Chronic kidney disease, stage 3 unspecified Category: Medical Plan: Keep well hydrated avoid NSAIDs (7) Rotator cuff insufficiency of right shoulder: Code(s): M25.311 - Other instability, right shoulder Category: Medical Plan: Patient continue to follow-up with orthopedics (8) Right-sided chest pain: Code(s): R07.9 - Chest pain, unspecified Category: Medical (9) Constipation: Code(s): K59.00 - Constipation, unspecified Category: Medical (10) Right-sided chest pain: Code(s): R07.9 - Chest pain, unspecified Category: Medical Plan Plan Patient was informed and verbally consented to the use of an ambient scribe for clinic note documentation during this visit. 1. Rib Pain The patient's right-sided rib pain, which is tender to palpation and worse with movement, is likely musculoskeletal in origin, possibly a pulled muscle from recent activity or costochondritis, given the negative findings on the recent abdominal CT scan. An order for a rib series X-ray will be placed to rule out an underlying fracture. The patient was counseled to use Tylenol for pain and avoid NSAIDs like ibuprofen, which can cause gastric upset. 2. Diverticulitis The patient was recently diagnosed with diverticulitis during an ER visit based on CT findings of sigmoid wall thickening. The patient will be instructed to complete the prescribed course of Levaquin and metronidazole. The patient was also advised to maintain adequate hydration and avoid NSAIDs. 3. Constipation The patient reports no bowel movements for the past week, likely secondary to taking morphine. A prescription for MiraLAX will be sent to the pharmacy to alleviate the constipation. The patient was advised to stop taking narcotic pain medications. 4. Type 2 Diabetes Mellitus The patient's glycemic control has improved, with the most recent hemoglobin A1c in August at 7.1%. The patient will continue the current regimen of Glipizide 10 mg daily, Jardiance 25 mg daily, and Trulicity 3 mg weekly. New blood work, including a hemoglobin A1c, will be ordered. 5. Hypercholesterolemia The patient will continue taking rosuvastatin 40 mg once a day for management of hypercholesterolemia. An order for new blood work will be placed to monitor labs. 6. Coronary Artery Disease The patient will continue taking aspirin 81 mg once a day for secondary prevention of cardiovascular events. 7. Right Rotator Cuff Insufficiency The patient continues to have significant right shoulder pain from rotator cuff insufficiency, which affects sleep. The patient is advised to call and follow up on the orthopedics referral, especially now that glycemic control has improved, which was a potential barrier to surgical intervention. 8. Solitary Pulmonary Nodule A 5 mm spot was found in the left upper lobe on a recent chest CT. Per the radiology report, no further follow-up is indicated at this time, and the patient was reassured. Discussion Notes I explained to the patient that the new right-sided pain is most likely a pulled muscle or inflammation of the rib cartilage, especially given the history of physical exertion and the lack of concerning findings on the recent abdominal CT scan. I am ordering a rib X-ray to formally rule out a fracture. We discussed that the constipation is a very common side effect of the morphine the patient was taking, and I prescribed MiraLAX to help resolve this. I also explained why it is safer to use Tylenol for pain rather than ibuprofen, which can harm the kidneys and stomach. I stressed the importance of completing the full course of antibiotics for the recent diverticulitis diagnosis. Regarding the 5mm lung spot found on the chest CT, I reassured the patient that the report indicated it was not worrisome and required no immediate follow-up. We reviewed the need to follow-up with orthopedics for the chronic shoulder pain, and I encouraged the patient to contact their office. Finally, I confirmed that the patient would keep the next scheduled appointment for ongoing follow-up. Patient Instructions - Go for an X-ray of your right ribs as requested. - Make sure you finish the entire course of your antibiotics (Levaquin and metronidazole) for diverticulitis. - Take the prescribed MiraLAX for constipation. - You should mix the powder packet with water. - Avoid taking any more of the morphine pain medication. - For pain relief, it is safer to take Tylenol instead of ibuprofen (Advil, Motrin). - Remember to drink plenty of water. - Call the orthopedics office to schedule a follow-up appointment for your shoulder pain. - Continue all of your other regular medications for diabetes, cholesterol, and heart health. - Orders have been placed for you to get new blood work done. - Keep your next scheduled appointment. Orders: Orders XR ribs RT min 3V w CXR1V Today R07.9 - Chest pain, unspecified Medications: New polyethylene glycol 3350 (Miralax) 17 grams PO DAILY 14 ea 0RF
--- OUTSIDE RECORDS SUMMARY | 2025-10-17 10:55 | XMS_ITS | Patient Health Record ---
Author Organization [facility] Address [address] [place] [address] Care Team Providers [employer] Name Role Phone Aaron Collazo MD Primary Care Provider Elbert Hanson [phone] Allergies Allergen (clinical drug ingredient) Drug/Non Drug [...] Capsule 1 tablet Orally Once a day Not-Taking/MI N metFORMIN HCl 500 MG Tablet 1 tablet wit h meals Orally three x a day Active Onglyza 5 MG Tablet 1 tablet Orally Once a day Not-Taking/MI N Metoprolol Tartrate 100 MG Tablet 1 [...] Problem Screening for malignant neoplasm of colon (826254760) Encounter for screening for malignant neoplasm of colon (Z12.11) Active confirmed Problem Screening for malignant neoplasm of rectum (653324161) Encounter for screening for malignant neoplasm of rectum (Z12.12) Active confirmed Problem Iron deficiency anemia (09703481) Iron deficiency anemia (D50.9) Active confirmed Problem Gastroesophageal reflux disease without esophagitis (348381981) Gastroesophageal reflux disease without esophagitis (K21.9) Active confirmed Problem Long-term current use of antiplatelet drug (425425083920853) Long-term use of aspirin therapy (Z79.82) Active confirmed Problem Gastritis (9413787) Gastritis (K29.70) Active c onfirmed Problem Gastroesophageal reflux disease (340120311) GERD (gastroesophageal reflux disease) (K21.9) Active confirmed Problem History of adenomatous polyp of colon (350551997) Hx of adenomatous colonic polyps (Z86.010) Active confirmed Problem Diverticulosis of colon (364851409) Diverticulosis of colon (K57.30) Active confirmed Plan Of Treatment Future Test Test Name Order Date COLONOSCOPY 03/09/2019 UPPER GI ENDOSCOPY 06/05/2022 COLONOSCOPY 06/05/2022 Insurance Providers Payer Name Payer Address Payer Phone Subscriber Number Group Number Insured Name Patient Relationship to Insured Coverage Start Date Coverage End Date MEDICARE OF [place] [address] [place] [id number] [phone] [id number] MAGDY KLEIN Self - patient is the insured MEDICAID OF [facility] [address] [place] [address] [id number] MAGDY KLEIN Self - patient is the insured Medical (General) History Medical History History ICD Code 10/20/2008 colonoscopy--- ne gative except for diverticulosis and internal hemorrhoids Coronary artery disease--[address] Will--most recent was in approx 2007 NIDDM Hypertension History of kidney stones Denies [place],CVA,Lung disease,renal disease GERD--EGD with Dr. Bruce in [...]
== END 2025-10-17 09:56 | disposition home or self-care (01) ==
LOC: HO.HMCH 09:14
PROVIDERS: PCP Internal Medicine; Visit Provider Internal Medicine
DX: I25.10 Atherosclerotic heart disease of native coronary artery without angina pectoris (principal); E11.65 Type 2 diabetes mellitus with hyperglycemia; N18.30 Chronic kidney disease, stage 3 unspecified; E78.00 Pure hypercholesterolemia, unspecified; K57.90 Diverticulosis of intestine, part unspecified, without perforation or abscess without bleeding; K21.9 Gastro-esophageal reflux disease without esophagitis; M25.311 Other instability, right shoulder; R07.9 Chest pain, unspecified; K59.00 Constipation, unspecified

== ENCOUNTER → 2025-10-17 10:38 | Outpatient (BNV) | payer OTHER, SELFPAY | PROVIDERS: Absent Provider Internal Medicine Hypertension Specialist; PCP Internal Medicine; Visit Provider Radiology Diagnostic Radiology | DX: R07.9 Chest pain, unspecified (principal); M47.815 Spondylosis without myelopathy or radiculopathy, thoracolumbar region; I25.10 Atherosclerotic heart disease of native coronary artery without angina pectoris | CPT/HCPCS: 71101 ==

== ENCOUNTER 2025-10-19 07:41 | Observation (INO) | payer OTHER, SELFPAY ==
--- NOTE | ~2025-10-19 | NM_ITS ---
CLINICAL HISTORY: persistence right upper quadrant abdominal pain NM HIDA SCAN WITH CHOLECYSTOKININ CHALLENGE Comparison: None provided Technique: persistence right upper quadrant abdominal pain Findings: 5 mCi technetium 99m Mebrofenin was administered intravenously. At the appropriate interval, 1.4 mcg of synthetic cholecystokinin was given slowly intravenously. Normal liver uptake, distribution, and excretion. Gallbladder appears eight minutes. Central bile ducts appear at 6-8 minutes. Duodenum definitively visualized after CCK administration. No enterogastric reflux of radiotracer. Gallbladder ejection fraction 39 %. IMPRESSION: 1. Delayed biliary to bowel transit with low-normal gallbladder ejection fraction raises the possibility of amild degree of gallbladder dyskinesia /chronic cholecystitis. This document has been electronically signed by: Catia Ruff DO on 10/19/2025 18:37:47
--- NOTE | ~2025-10-19 | CT_ITS ---
EXAMINATION: CT ABDOMEN PELVIS WITH IV CONTRAST HISTORY: R sided abd tenderness COMPARISON: Comparison is made with the prior examination dated 10/14/2025. TECHNIQUE: CT scan of the abdomen and pelvis was performed following administration of 85 mL Omnipaque 350 using standard departmental protocol. Coronal and sagittal reformatted images were generated and reviewed. Oral contrast material was not administered at the request of the referring physician. This CT exam was performed with one or more of the following dose reduction techniques: automated exposure control, adjustment of the mA and/or kV according to patient size, use of iterative reconstruction technique. DLP: 505 mGy-cm FINDINGS: LOWER CHEST: The visualized lung bases are clear. There is no pleural effusion. CARDIOVASCULATURE: The heart is normal in size. There is no pericardial effusion. LIVER: The liver is normal in size and contour. No liver mass is identified. The hepatic and portal veins are patent. GALLBLADDER / BILE DUCTS: The gallbladder is unremarkable. There is no intra or extrahepatic biliary ductal dilatation. SPLEEN: The spleen is normal in size. No focal splenic lesion is identified. PANCREAS: The pancreas is unremarkable in appearance. ADRENAL GLANDS: Again seen is a 2.0 cm right adrenal mass. There is nodularity of the left adrenal gland. KIDNEYS/RETROPERITONEUM: No renal calculi are identified. There is no hydronephrosis. There is a 1.2 cm cyst at the upper pole of the right kidney. LYMPH NODES: No abdominal or pelvic lymphadenopathy. VASCULATURE: The abdominal aorta demonstrates atherosclerotic calcification, but is normal in caliber. MESENTERY/PERITONEUM: No free fluid. No masses. There is no free intraperitoneal gas. STOMACH: The stomach is collapsed, limiting evaluation. SMALL BOWEL: The small bowel is normal in caliber. COLON: There is a large amount of stool throughout the colon. Again seen is extensive diverticulosis of the descending and sigmoid colon, without evidence of diverticulitis. APPENDIX: Normal. URINARY BLADDER/PELVIC ORGANS: The urinary bladder is unremarkable. The prostate is normal in size. BONES / SOFT TISSUES: No suspicious bony or soft tissue abnormalities. CT/CT abdomen pelvis w IV con IMPRESSION: 1. Large amount of stool throughout the colon. 2. Diverticulosis of the descending and sigmoid colon, without evidence of diverticulitis. Electronically signed by: Elbert Vang MD 10/19/2025 11:42 AM EST
--- NOTE | ~2025-10-19 | US_ITS ---
EXAMINATION: US ABDOMEN LIMITED HISTORY: upper abdominal pain, R/ O cholecystitis TECHNIQUE: Real-time grayscale ultrasound imaging of the right upper quadrant was performed and images were reviewed. COMPARISON: Correlation is made with a CT of the abdomen performed earlier in the day. FINDINGS: Liver: The liver is normal in size. The liver demonstrates mildly increased echotexture, consistent with steatosis. No focal mass or intrahepatic biliary ductal dilatation is identified. There is normal hepatopedal flow in the portal vein. Gallbladder and biliary tree: The gallbladder is unremarkable, without evidence of calculi, wall thickening, or pericholecystic fluid. However, the research food technologist reports that the patient is focally tender over the gallbladder compatible with a sonographic Jean Baptiste sign. The common bile duct is normal in caliber measuring 3 mm. Right Kidney: The right kidney measures 9.2 cm in length. The right kidney is unremarkable, without evidence of masses, hydronephrosis, or calculi. Pancreas: The pancreas is obscured by bowel gas. Abdominal aorta and inferior vena cava: The visualized portions of the abdominal aorta and inferior vena cava are normal in caliber. 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 US/US abdomen limited IMPRESSION: 1. No evidence of cholelithiasis, gallbladder wall thickening, or pericholecystic fluid. However, the research food technologist reports a positive sonographic Jean Baptiste sign. Further evaluation with HIDA scan is suggested. 2. Mild hepatic steatosis. Electronically signed by: Elbert Vang MD 10/19/2025 12:46 PM [facility]
[2025-10-19 07:50] VITALS: BP 152/69; PULSE 82; RESP 20; TEMP 36.2; O2SAT 96; BMI 23.2
[2025-10-19 09:27] LABS: MANUAL DIFF FLAG NO
[2025-10-19 09:32] LABS: Hematocrit 43.2 % (42.0-52.0); Hemoglobin 14.0 g/dl (14.0-18.0); Imm Gran Abs Auto 0.02 X10*3/uL (0.00-0.03); Imm Gran Pct Auto 0.3 % (0.0-0.4); Lymphocytes Absolute Auto 1.7 X10*3/uL (1.2-4.9); Mean Corpuscular HGB Conc 32.4 g/dl (31.0-36.0); Mean Corpuscular Hemoglobin 26.7 pg (27.0-33.0); Mean Corpuscular Volume 82.4 fL (80.0-98.0); NRBC Abs Auto 0.000 X10*3/uL (0.0-0.012); NRBC Pct Auto 0.0 /100WBC (0.0-0.2); Platelet Count 217 X10*3/uL (160-400); Red Blood Count 5.24 X10*6/uL (4.60-5.80); White Blood Count 6.3 X10*3/uL (4.8-10.8)
[2025-10-19 09:46] LABS: Alanine Aminotransferase 16 U/L (0-40); Albumin Level 4.7 g/dL (3.5-5.0); Alkaline Phosphatase 70 U/L (39-117); Anion Gap 12 (12-20); Aspartate Amino Transferase 26 U/L (5-37); Blood Urea Nitrogen 16 mg/dL (9-16); Calcium 9.9 mg/dL (8.4-10.2); Carbon Dioxide 26 mmol/L (22-29); Chloride 109 mmol/L (96-108); Creatinine Clr Calc Pharmacy 41.6; Estimated Glomerular Filt Rate 49; Lipase 34 U/L (8-78); Potassium 4.6 mmol/L (3.3-5.1); Sodium 142 mmol/L (135-145); Total Protein 7.6 g/dL (6.5-8.0)
--- NOTE | 2025-10-19 10:42 | ED.GENADULT ---
HPI - General Adult General Chief complaint: Abdominal Pain Stated complaint: abd pain Time Seen by Provider: 10/19/25 10:40 Source: patient Mode of arrival: ambulatory Limitations: no limitations History of Present Illness ED Provider: DR. Roberto HPI narrative: 79-year-old male returned to the ED for evaluation of persistent of right-sided abdominal pain times 1 week now, patient was seen in the emergency department twice this week had CT of the chest on 10/12 which was unremarkable, then patient returned to the emergency department on 10/14 for persistent of the abdominal pain had a CT of the abdomen pelvis which raise suspicion for diverticulitis versus colitis versus under distended colon however patient is was sent home on Augmentin patient has been taking the Augmentin with a past 5 days with out improvement of his symptoms. No nausea, no vomiting, no fever, no chills, able to tolerate p.o. intake, no dysuria, no frequency urination. Never history of intra-abdominal surgery, last colonoscopy was less than 2 years ago and was unremarkable, last bowel movement was this morning and was normal in passing flatus. Related Data Home Medications ?Medication ?Instructions ?Recorded ?Confirmed aspirin 81 mg tablet,delayed 81 mg PO DAILY 09/13/20 08/30/25 release cholecalciferol (vitamin D3) 25 25 mcg PO DAILY 09/13/20 08/30/25 mcg (1,000 unit) tablet magnesium oxide 400 mg PO DAILY 09/13/20 08/30/25 vitamin E (dl, acetate) 45 mg (100 100 unit PO DAILY 09/13/20 08/30/25 unit) capsule blood sugar diagnostic #10 ea 01/08/21 08/30/25 zinc acetate 25 mg (zinc) capsule 25 mg PO DAILY 01/12/24 08/30/25 vitamin B complex 1 tab PO DAILY 07/11/25 08/30/25 Previous Rx's ?Medication ?Instructions ?Recorded ascorbic acid (vitamin C) 500 mg 500 mg PO BID 90 days #180 tabs 07/19/21 tablet (Vitamin C) blood sugar diagnostic #2 boxes 07/08/22 walking cane #1 ea 12/05/22 cyclobenzaprine 10 mg tablet 10 mg PO BEDTIME PRN muscle spasm 04/10/23 #14 tabs potassium chloride 20 mEq 20 meq PO DAILY #30 tabs 04/30/23 tablet,extended release blood sugar diagnostic (OneTouch #2 ea 12/05/23 Ultra Test strips) omeprazole 20 mg capsule,delayed 20 mg PO QAM #90 caps 07/26/24 release rosuvastatin 40 mg tablet 40 mg PO DAILY #90 tabs 11/09/24 hydroxyzine HCl 10 mg tablet 10 mg PO BEDTIME PRN itching #10 01/06/25 tabs triamcinolone acetonide 0.5 % 1 appl topical BID #30 grams 02/11/25 topical cream isosorbide mononitrate 30 mg 30 mg PO DAILY #90 tabs 02/28/25 tablet,extended release 24 hr furosemide 20 mg tablet 20 mg PO DAILY 90 days #90 tabs 04/02/25 bupropion HCl 150 mg 24 hr tablet, 150 mg PO QAM #30 tabs 04/27/25 extended release (Wellbutrin XL) metoprolol tartrate 25 mg tablet 25 mg PO BID htn 90 days #180 tabs 04/27/25 empagliflozin 25 mg tablet 25 mg PO DAILY #90 tabs 06/03/25 glipizide 10 mg tablet, extended 10 mg PO DAILY #90 tabs 06/03/25 release 24 hr dulaglutide 3 mg/0.5 mL 3 mg (0.5 mL) subcut QWEEK #2 mL 08/19/25 subcutaneous pen injector ([facility]) duloxetine 30 mg capsule,delayed 30 mg PO DAILY #30 caps 08/30/25 release finasteride 5 mg tablet (Proscar) 5 mg PO DAILY prostate 90 days #90 09/01/25 tabs acetaminophen 500 mg capsule 1,000 mg (2 x 500 mg) PO Q8H PRN 09/18/25 fever or pain #14 caps morphine 15 mg immediate release 15 mg PO Q6H PRN pain #14 tabs 09/18/25 tablet lidocaine 5 % topical patch 2 patch topical DAILY #30 ea 09/30/25 acetaminophen 325 mg tablet 650 mg (2 x 325 mg) PO Q6H PRN 10/14/25 (Tylenol) fever or pain #30 tabs levofloxacin 500 mg tablet 500 mg PO DAILY 7 days #7 tabs 10/14/25 metronidazole 500 mg tablet 500 mg PO BID 7 days #14 tabs 10/14/25 polyethylene glycol 3350 17 gram 17 g PO DAILY #14 ea 10/17/25 oral powder packet (Miralax) Allergies Allergy/AdvReac Type Severity Reaction Status Date / Time Penicillins Allergy Mild Rash Verified 10/19/25 07:53 linagliptin (Tradjenta) AdvReac Mild diarrhea Verified 10/19/25 07:53 lisinopril AdvReac Mild Cough Verified 10/19/25 07:53 Review of Systems Review of Systems: All other systems are reviewed and are negative Constitutional: Reports as per HPI and Reports no additional constitutional complaints Eyes: Reports as per HPI and Reports no additional eye complaints Reports system reviewed and no additional complaints, except as documented Cardiovascular: Reports as per HPI and Reports no additional cardiovascular complaints Respiratory: Reports as per HPI and Reports no additional respiratory complaints Gastrointestinal: Reports as per HPI and Reports no additional gastrointestinal complaints Genitourinary: Reports no additional female genitourinary complaints Musculoskeletal: Reports no additional musculoskeletal complaints Skin/Breast: Reports system reviewed and no additional complaints, except as docu Psychiatric: Reports no additional psychiatric complaints Endocrine: Reports no additional endocrine complaints Hematologic/Lymphatic: Reports no additional hematologic/lymphatic complaints Allergic/Immunologic: Reports no additional allergic/immunologic complaints Reports system reviewed and no additional complaints, except as documented and Reports Abnormal speech present [facility] Past Medical History Medical History Chest pain Type 2 diabetes mellitus Chronic renal insufficiency Iron deficiency anemia HTN (hypertension) Sciatic nerve palsy, left BPH (benign prostatic hyperplasia) Fatty liver Renal calculi Adrenal adenoma GERD (gastroesophageal reflux disease) Hypercholesterolemia Coronary artery disease Overweight (BMI 25.0-29.9) Surgical History Hx of cystoscopy Hx of hand surgery History of transurethral resection of prostate History of esophagogastroduodenoscopy (EGD) H/O colonoscopy Hx of heart artery stent S/P CABG x 4 (~08/2019) History of prostate surgery History of arthroscopy of left shoulder History of tonsillectomy Family History Family History Father Diabetes Hypertension CVD (cardiovascular disease) Mother Diabetes Social History Social History Household Members: Family Housing: House Are you a primary furnace caretaker to a significant other at home: No Do you presently have visiting nurse or other home services: No Alcohol intake: never Patient Tobacco Use Status: Former Tobacco user Tobacco use type: Cigarette Cigarette Packs Per Day: 1.5 Years Smoked: 25 e-Cigarette/Vaping Use: Never Used Second Hand Smoke Exposure: Yes Advance Directives: No Advance Directives Information Provided: Yes Do you have a plan to hurt others: No Plan service: No Current occupational status: retired Cognitive needs: Yes (cane) Hearing needs: No Vision needs: Yes (perscription glasses) Physical Exam ED Vital Signs: Vital Signs - 24 hr 10/19/25 07:50 10/19/25 11:18 10/19/25 18:25 Temperature 97.1 F 98.5 F 98.1 F Pulse Rate 82 80 80 Respiratory Rate 20 14 16 Blood Pressure 152/69 H 122/76 130/78 Pulse Oximetry 96 96 93 Oxygen Delivery Method Room Air Room Air Room Air BMI result Body Mass Index 23.2 Vital signs have been reviewed and appear to be correct. Blood pressure elevated. Heart rate normal. Respiratory rate normal. Temperature normal. Oxygen saturation normal. Appearance: Alert. Oriented X3. No acute distress. Head: Normal external exam. Normocephalic. Atraumatic. No Velasquez signs noted. No raccoon eyes noted Eyes: PERRLA. EOMI. Conjunctiva and sclera normal. Eyelids normal. ENT: TM's Normal. Pharynx normal. Uvula midline. Moist mucous membranes. No trismus noted. No drooling noted. No muffled voice noted. Neck: Normal inspection. Neck supple. FROM. No adenopathy. Thyroid Normal. No meningeal signs. No neck mass noted. CVS: Normal heart rate and rhythm. Heart sound normal. No murmurs noted. Pulses normal throughout. Respiratory: No respiratory distress. Painless inspiration. Breath sounds normal. No wheezes/rales/rhonchi noted. Chest nontender. No accessory muscle usage noted or decreased air movement noted. Abdomen: Soft and nontender. Bowel sounds normal in all 4 quadrants. No distention noted. No organomegaly noted. No visible injury noted. Back: No CVA tenderness. Full range of motion noted. Skin: Skin warm and dry. Normal skin color. Normal skin turgor. No rashes/lesions/lacerations noted. Extremities: No lower extremity edema. Extremities exhibit normal range of motion. Extremities nontender. Neuro: Oriented X 3. Cranial nerve exam: II-XII are grossly intact No motor deficit. No sensory deficit. Reflexes normal. Course Reevaluation(s) Reevaluation #1: this is 79-year-old male who appeared healthy and hemodynamically stable today count his 4th visit to the ED in 1 week for evaluation of abdominal pain, labs are unremarkable, physical exam is unremarkable for tenderness, repeat CT abdomen and pelvis today reveals no source of infection no diverticulitis in particular raising suspicion of constipation, LFTs and labs are stable with no evidence of gallbladder disease, ultrasound is showing no acute gallbladder biliary disease. At this point with a normal WBCs, stable vital signs, and physical exam that revealed no abdominal tenderness, and CT abdomen pelvis who only showing constipation, no gallbladder disease and recommending HIDA scan if still a concern will consider HIDA scan. Time: 12:45 Reevaluation #2: Patient is still complaining of right upper quadrant abdominal intermittent pain, HIDA scan revealed gallbladder dyskinesia, no definitive diagnosis of acute cholecystitis infection. The case was discussed with Pearl (physician assistant director of admissions on-call for Surgical Service) who advised to admit the patient for observation. Time: 20:15 Medications Administered Generic Name Dose Route Start Last Admin Trade Name Freq PRN Reason Stop Dose Admin Lactated Ringer's 1,000 mls @ 100 mls/hr 10/19/25 19:15 10/19/25 19:49 Lr IVCONT 100 mls/hr .Q10H PJ Administration Discontinued Medications Generic Name Dose Route Start Last Admin Trade Name Freq PRN Reason Stop Dose Admin Iohexol 100 ml 10/19/25 11:23 10/19/25 11:23 Iohexol 350 Mg/Ml 100 Ml Infus..Btl IV 10/19/25 11:24 85 ml ONCE ONE Administration Medical Decision Making Differential Diagnosis Differential Diagnoses: The differential diagnosis associated with the presentation includes ( Acute cholecystitis, acute colitis, acute diverticulitis, electrolyte derangement, severe anemia, Biliary dyskinesia.) Admission/Observation Consideration of admission/observation: Escalation of care including admission/observation considered Lab Data MDM Lab Attestation statement: I reviewed the patient's lab results. 10/19/25 09:24 12/03/25 09:24 Labs: Lab Results 10/19/25 10/19/25 Range/Units 09:24 15:48 WBC 6.3 (4.8-10.8) X10*3/uL RBC 5.24 (4.60-5.80) X10*6/uL Hgb 14.0 (14.0-18.0) g/dl Hct 43.2 (42.0-52.0) % MCV 82.4 (80.0-98.0) fL MCH 26.7 L (27.0-33.0) pg MCHC 32.4 (31.0-36.0) g/dl RDW 14.2 (11.0-16.0) % Plt Count 217 (160-400) X10*3/uL MPV 10.2 (9.4-12.4) fL Immature Gran % (Auto) 0.3 (0.0-0.4) % Neut % (Auto) 59.8 (45-73) % Lymph % (Auto) 26.9 (20-40) % Nuckolls % (Auto) 9.0 (2-11) % Eos % (Auto) 2.7 (0-4) % Baso % (Auto) 1.3 (0-2) % Lymph # (Auto) 1.7 (1.2-4.9) X10*3/uL [place]oll[place] # (Auto) 0.6 (0.1-1.2) X10*3/uL Eos # (Auto) 0.2 (0.0-0.4) X10*3/uL Baso # (Auto) 0.1 (0.0-0.2) X10*3/uL Abs Immat Gran (auto) 0.02 (0.00-0.03) X10*3/uL Absolute Neuts (auto) 3.8 (2.0-8.3) x10*3/uL Absolute Nucleated RBC 0.000 (0.0-0.012) X10*3/uL Nucleated RBC % (auto) 0.0 (0.0-0.2) /100WBC Sodium 142 (135-145) mmol/L Potassium 4.6 (3.3-5.1) mmol/L Chloride 109 H (96-108) mmol/L Carbon Dioxide 26 (22-29) mmol/L Anion Gap 12 (12-20) BUN 16 (9-16) mg/dL Creatinine 1.39 (0.5-1.4) mg/dL Estim Creat Clear Calc 41.6 Estimated GFR 49 Random Glucose 160 H (60-115) mg/dL Calcium 9.9 (8.4-10.2) mg/dL Total Bilirubin 0.7 (0.0-1.0) mg/dL Direct Bilirubin 0.2 (0.0-0.5) mg/dL AST 26 (5-37) U/L ALT 16 (0-40) U/L Alkaline Phosphatase 70 (39-117) U/L Total Protein 7.6 (6.5-8.0) g/dL Albumin 4.7 (3.5-5.0) g/dL Lipase 34 (8-78) U/L Urine Color Yellow Urine Appearance Clear Urine pH 7.0 (5.0-9.0) Ur Specific [place] 1.025 (1.005-1.025) Urine Protein Negative (Neg-Trace) mg/dL Urine Glucose (UA) >=1000 H (Negative) mg/dL Urine Ketones Negative (Negative) mg/dL Urine Blood Negative (Negative) Urine Nitrite Negative (Negative) Ur Leukocyte Esterase Negative (Negative) Urine RBC 0-2 (0-2) /HPF Urine WBC 0-5 (0-5) /HPF Ur Squamous Epith Cells 0-2 (0-2) /HPF Urine Bacteria None Seen (None Seen) Hyaline Casts 0-2 (0-2) /LPF Independent Interpretation I performed an independent interpretation of an: Ultrasound ( Abdominal ultrasound:1. No evidence of cholelithiasis, gallbladder wall thickening, or pericholecystic fluid. However, the agricultural engineering technologist reports a positive sonographic Jean Baptiste sign. Further evaluation with HIDA scan is suggested. 2. Mild hepatic steatosis. ) and CT Scan ( Abdomen pelvis:. Large amount of stool throughout the colon. 2. Diverticulosis of the descending and sigmoid colon, without evidence of diverticulitis. ) Radiology Impression Discussion of test interpretation with radiology: I have reviewed the radiologist's reading. Discharge Plan Discharge Clinical Impression: Constipation, Abdominal pain, Dyskinesia of gallbladder Patient Disposition: Admitted As Inpatient
[2025-10-19 11:18] VITALS: BP 122/76; PULSE 80; RESP 14; TEMP 36.9; O2SAT 96
[2025-10-19] MEDS: iohexoL 350 MG/ML 100 ML INFUS..BTL IV (11:23)
--- OUTSIDE RECORDS SUMMARY | 2025-10-19 12:18 | XMS_ITS | Patient Health Record ---
Author Organization [facility] Address [address] [place] [address] Care Team Providers Care Balance Bridge Inspector Name Role Phone Aaron Collazo MD Primary Care Provider Elbert Hanson [phone] Allergies Allergen (clinical drug ingredient) Drug/Non Drug [...] Capsule 1 tablet Orally Once a day Not-Taking/CA N metFORMIN HCl 500 MG Tablet 1 tablet wit h meals Orally three x a day Active Onglyza 5 MG Tablet 1 tablet Orally Once a day Not-Taking/CA N Metoprolol Tartrate 100 MG Tablet 1 [...] Problem Screening for malignant neoplasm of colon (842671696) Encounter for screening for malignant neoplasm of colon (Z12.11) Active confirmed Problem Screening for malignant neoplasm of rectum (261928398) Encounter for screening for malignant neoplasm of rectum (Z12.12) Active confirmed Problem Iron deficiency anemia (83393663) Iron deficiency anemia (D50.9) Active confirmed Problem Gastroesophageal reflux disease without esophagitis (160852751) Gastroesophageal reflux disease without esophagitis (K21.9) Active confirmed Problem Long-term current use of antiplatelet drug (269700003727969) Long-term use of aspirin therapy (Z79.82) Active confirmed Problem Gastritis (2679871) Gastritis (K29.70) Active c onfirmed Problem Gastroesophageal reflux disease (088271068) GERD (gastroesophageal reflux disease) (K21.9) Active confirmed Problem History of adenomatous polyp of colon (266382686) Hx of adenomatous colonic polyps (Z86.010) Active confirmed Problem Diverticulosis of colon (528004579) Diverticulosis of colon (K57.30) Active confirmed Plan Of Treatment Future Test Test Name Order Date COLONOSCOPY 03/09/2019 UPPER GI ENDOSCOPY 06/05/2022 COLONOSCOPY 06/05/2022 Insurance Providers Payer Name Payer Address Payer Phone Subscriber Number Group Number Insured Name Patient Relationship to Insured Coverage Start Date Coverage End Date MEDICARE OF [place] [address] [place] [address] [phone] [id number] MAGDY KLEIN Self - patient is the insured MEDICAID OF [facility] [address] [place] [phone] [id number] MAGDY KLEIN Self - patient is the insured Medical (General) History Medical History History ICD Code 10/20/2008 colonoscopy--- ne gative except for diverticulosis and internal hemorrhoids Coronary artery disease--[address] Will--most recent was in approx 2007 NIDDM Hypertension History of kidney stones Denies AL,CVA,Lung disease,renal disease GERD--EGD with Dr. Bruce in [...]
[2025-10-19 16:07] LABS: Appearance Urine Clear; Glucose Urine UA >=1000 mg/dL (Negative); PH 7.0 (5.0-9.0); Specific Gravity - Urine 1.025 (1.005-1.025); UMIC TRIGGER UACC YES
[2025-10-19 18:25] VITALS: BP 130/78; PULSE 80; RESP 16; TEMP 36.7; O2SAT 93
[2025-10-19] MEDS: Lactated Ringers 1,000 ML 100 ML IVCONT (19:49)
[2025-10-19 20:30] VITALS: BP 151/72; PULSE 81; RESP 18; TEMP 36.7; O2SAT 95
[2025-10-19 20:33] LABS: Glucose, Whole Blood 213 mg/dL (60-115)
--- NOTE | 2025-10-19 22:47 | PHA.MEDREC ---
Pharmacy Consult ? Medication Reconciliation Pharmacy has completed the medication reconciliation. Spoke to patient who has a hand written med list to confirm medication list. Per patient, he doesn't take acetaminophen (doesn't work), anything for depression, morphine, rosuvastatin anymore. He still has 2 days left of the course of levofloxacin and metronidazole. He takes trulicity 3 mg on sundays. Last dose of medications was this morning 10/19/25.
[2025-10-20] VITALS (12 sets, daily range): BP systolic 140–175; BP diastolic 65–94; PULSE 68–89; RESP 10–18; TEMP 36–36.4; O2SAT 92–100; BMI 22.1
--- NOTE | 2025-10-20 03:07 | HO.NURTONUR ---
79 A&Ox4 male comes in with persistent right abd pain x1 week. HIDA scan showed gallbladder dyskinesia. NPO at midnight. ambulated independently. 20 L FR. LR @ 100mL/hr Meds given Dilaudid. PMHx DM, HTN, BPH, GERD, CAD
--- NOTE | 2025-10-20 05:48 | PM.HPGS ---
History of Present Illness History of Present Illness Date of Service: 10/20/25 <Moni Barber PA-C - Last Filed: 10/20/25 09:39> 10/20/25 <Jax Camarena MD - Last Filed: 10/20/25 11:14> Chief complaint: RUQ abd pain <Moni Barber PA-C - Last Filed: 10/20/25 09:39> Narrative: Calderon Crowley is a 79 year old male PMH of diabetes mellitus, CKD, CAD s/p quadruple bypass in 2019, hypertension, iron deficiency anemia, HLD, GERD, who presented to the ED with complaints of RUQ abd pain. The pain has been present for a little over a week now. It is sharp and stabbing in nature and associated with reduced oral intake secondary to the severity. He did report some nausea the few days prior but this has resolved. He has been seen in the ED as well by his PCP multiple times since the end of September for the same pain. He was initially evaluated here on 10/12/[address], EKG was performed which was negative for acute pathology. He was sent home with diagnosis of rib pain. The RUQ pain persisted and he presented again on 10/14/[address] scan abd/pelvis was performed and he was diagnosed with sigmoid diverticulitis, constipation and sent home on Augmentin. He was then evaluated by his PCP and rib xray was performed on 10/17/25 which was negative for fracture. The pain has continued and he presented again to the ED yesterday where he had an extensive work up including CBC, BMP, LFTs and CT scan abd/pelvis which were unremarkable. ABD US was then performed which was also unremarkable however he had a sonographic jean baptiste sign and therefore HIDA was obtained which showed delayed biliary to bowel transit with low-normal gallbladder ejection fraction raising the concern for gallbladder dyskinesia or chronic cholecystitis. Given his multiple visits and persistent abdominal pain with inability to tolerate oral intake, he was admitted for observation. He reports continued pain this morning. He reports the only time he has not had RUQ abd pain in over a week was following the IV pain administration. He denies similar prior episodes of pain but does state the severity is similar to when he had kidney stones but the pain is overall different. He denies fevers, chills, diarrhea, cough, chest pain, SOB, change in skin color/urine or stool color. He does report . He reports constipation with no BM x 1 week, he did have a BM the day before yesterday after being given laxatives. He reports being very active prior to developing the pain and walks on the treadmill 4x/ week. He denies prior abdominal surgery. <Moni Barber PA-C - Last Filed: 10/20/25 09:39> Review of Systems Review of Systems: Yes all other systems are reviewed and are negative <Moni Barber PA-C - Last Filed: 10/20/25 09:39> [facility] Past Medical History Medical History: Medical History Chest pain Type 2 diabetes mellitus Chronic renal insufficiency Iron deficiency anemia HTN (hypertension) Sciatic nerve palsy, left BPH (benign prostatic hyperplasia) Fatty liver Renal calculi Adrenal adenoma GERD (gastroesophageal reflux disease) Hypercholesterolemia Coronary artery disease Overweight (BMI 25.0-29.9) <Moni Barber PA-C - Last Filed: 10/20/25 09:39> Family History Family History: Family History Father Diabetes Hypertension CVD (cardiovascular disease) Mother Diabetes <Moni Barber PA-C - Last Filed: 10/20/25 09:39> Surgical History Surgical History: Surgical History Hx of cystoscopy Hx of hand surgery History of transurethral resection of prostate History of esophagogastroduodenoscopy (EGD) H/O colonoscopy Hx of heart artery stent S/P CABG x 4 (~08/2019) History of prostate surgery History of arthroscopy of left shoulder History of tonsillectomy <RICARDO Prakash Last Filed: 10/20/25 09:39> Social History Social History: Social History Household Members: Family Housing: House Are you a primary career technology teacher to a significant other at home: No Do you presently have visiting nurse or other home services: No Alcohol intake: never Patient Tobacco Use Status: Former Tobacco user Tobacco use type: Cigarette Cigarette Packs Per Day: 1.5 Years Smoked: 25 e-Cigarette/Vaping Use: Never Used Second Hand Smoke Exposure: Yes Advance Directives: No Advance Directives Information Provided: Yes Do you have a plan to hurt others: No Plan Nutrition Risks: No Nutritional Risk service: No Current occupational status: retired Cognitive needs: Yes (cane) Hearing needs: No Vision needs: Yes (perscription glasses) <Moni Barber PA-C - Last Filed: 10/20/25 09:39> Meds Allergies/Adverse reactions: Allergies Allergy/AdvReac Type Severity Reaction Status Date / Time Penicillins Allergy Mild Rash Verified 10/19/25 07:53 linagliptin (Tradjenta) AdvReac Mild diarrhea Verified 10/19/25 07:53 lisinopril AdvReac Mild Cough Verified 10/19/25 07:53 <Moni Barber PA-C - Last Filed: 10/20/25 09:39> Active Medications: Current Medications Acetaminophen (Acetaminophen 325 Mg Tablet) 650 mg PO Q6H PRN PRN Reason: Pain, Mild 1-3,fever,headache Calcium Carbonate (Calcium Carbonate 750 Mg Tab.Chew) 750 mg PO Q4H PRN PRN Reason: Heartburn Dextrose (Dextrose 50 % 25 Gm/50 Ml Syringe) 25 gm IVPUSH Q15M PRN; Protocol PRN Reason: per Hypoglycemia Standing Ord. Docusate Sodium (Docusate Sodium 100 Mg Capsule) 100 mg PO BID PRN PRN Reason: constipation Finasteride (Finasteride 5 Mg Tablet) 5 mg PO DAILY PJ Glucose (Glucose Gel 15 Gm Gel..Gram.) 15 gm PO Q15M PRN; Protocol PRN Reason: per Hypoglycemia Standing Ord. Hydromorphone HCl (Hydromorphone Hcl 1 Mg/Ml Syringe) 0.5 mg IVPUSH Q4H PRN; Protocol PRN Reason: Pain, Severe (Pain Scale 7-10) Last Admin: 10/20/25 02:00 Dose: 0.5 mg Lactated Ringer's (Lr) 1,000 mls @ 100 mls/hr IVCONT .Q10H PJ Last Admin: 10/19/25 19:49 Dose: 100 mls/hr Insulin Human Lispro (Insulin Lispro 100 Unit/Ml 3 Ml Vial) 0 unit SUBCUT QIDACHS [facility]; Protocol Last Admin: 10/19/25 20:36 Dose: 4 unit Isosorbide Mononitrate (Isosorbide Mononitrate 30 Mg Tab.Er.24h) 30 mg PO DAILY [facility]; Protocol Magnesium Hydroxide (Milk Of Magnesia 30 Ml Oral.Susp) 30 ml PO DAILY PRN PRN Reason: Constipation Magnesium Hydroxide (Milk Of Magnesia 30 Ml Oral.Susp) 30 ml PO DAILY PRN PRN Reason: Constipation Melatonin (Melatonin 3 Mg Tablet) 6 mg PO BEDTIME PRN PRN Reason: Insomnia Metoprolol Tartrate (Metoprolol Tartrate 25 Mg Tablet) 25 mg PO BID [facility]; Protocol Omeprazole (Omeprazole 20 Mg Capsule.Dr) 20 mg PO DAILY@0630 [facility] Ondansetron HCl (Ondansetron Hcl 4 Mg/2 Ml Vial) 4 mg IVPUSH Q8H PRN PRN Reason: Nausea and Vomiting Oxycodone HCl (Oxycodone Hcl Immed Release 5 Mg Tablet) 5 mg PO Q6H PRN PRN Reason: Pain, Moderate(Pain Scale 4-6) Sodium Chloride (0.9 % Sodium Chloride Flush 3 Ml Syringe) 3 ml IVFLUSH QSHIFT [facility] Last Admin: 10/20/25 00:07 Dose: Not Given <Moni Barber PA-C - Last Filed: 10/20/25 09:39> Home medications: Home Medications ?Medication ?Instructions ?Recorded ?Confirmed ?Last Taken ?Type aspirin 81 mg tablet,delayed 81 mg PO DAILY 09/13/20 10/19/25 10/19/25 History release cholecalciferol (vitamin D3) 25 25 mcg PO DAILY 09/13/20 10/19/25 10/19/25 History mcg (1,000 unit) tablet magnesium oxide 400 mg PO DAILY 09/13/20 10/19/25 10/19/25 History blood sugar diagnostic #10 ea 01/08/21 08/30/25 Unknown History zinc acetate 25 mg (zinc) capsule 25 mg PO DAILY 01/12/24 10/19/25 10/19/25 History dulaglutide 3 mg/0.5 mL 3 mg subcut RODRIGUEZ 10/19/25 10/19/25 10/16/25 History subcutaneous pen injector (Trulicity) empagliflozin 25 mg tablet 25 mg PO DAILY@1700 10/19/25 10/19/25 10/19/25 History finasteride 5 mg tablet (Proscar) 5 mg PO BEDTIME prostate 10/19/25 10/19/25 10/18/25 History latanoprost 0.005 % eye drops 1 drp ophthalmic (eye) BEDTIME 10/19/25 10/19/25 10/18/25 History omeprazole 20 mg capsule,delayed 20 mg PO DAILY@0630 10/19/25 10/19/25 10/19/25 History release <Moni Barber PA-C Last Filed: 10/20/25 09:39> Physical Exam Vital Signs: Vital Signs: Last Vital Signs Temp 98.0 F 10/19/25 20:30 Pulse 81 10/19/25 20:30 Resp 18 10/19/25 20:30 BP 151/72 H 10/19/25 20:30 Pulse Ox 95 10/19/25 20:30 O2 Del Method Room Air 10/19/25 20:30 BMI result Body Mass Index 23.2 <RICARDO Prakash Last Filed: 10/20/25 09:39> Const: General: comfortable, no acute distress and alert; No ill appearing <Moni Barber PA-C Last Filed: 10/20/25 09:39> Orientation/consciousness: patient oriented x3 <Moni Barber PA-C [employer] Last Filed: 10/20/25 09:39> Resp: Effort & Inspection: normal respiratory effort, able to speak in complete sentences and not tachypneic <RICARDO Prakash Last Filed: 10/20/25 09:39> Cardio: Rate: regular rate <RICARDO Prakash Last Filed: 10/20/25 09:39> GI: Inspection: Yes normal to inspection <RICARDO Prakash Last Filed: 10/20/25 09:39> Palpation (GI): Soft to palpation, Tenderness to palpation present (GI) in the RLQ (mild), in the RUQ (moderate) and Jean Baptiste's sign positive; with no rebound tenderness and no guarding <Moni Barber PA-C Last Filed: 10/20/25 09:39> Skin: General skin exam: no rashes or lesions noted and no jaundice <Moni Barber PA-C Last Filed: 10/20/25 09:39> Neuro: General: patient oriented x3 and moves all extremities <RICARDO Prakash Last Filed: 10/20/25 09:39> Extrem: General: Yes no clubbing, cyanosis or edema <RICARDO Prakash Last Filed: 10/20/25 09:39> Results Results Labs: Short CBC 10/19/25 Range/Units 09:24 WBC 6.3 (4.8-10.8) X10*3/uL Hgb 14.0 (14.0-18.0) g/dl Hct 43.2 (42.0-52.0) % Plt Count 217 (160-400) X10*3/uL BMP 10/19/25 09:24 Sodium 142 Potassium 4.6 Chloride 109 H Carbon Dioxide 26 BUN 16 Creatinine 1.39 Calcium 9.9 Liver Function 10/19/25 Range/Units 09:24 Total Bilirubin 0.7 (0.0-1.0) mg/dL Direct Bilirubin 0.2 (0.0-0.5) mg/dL AST 26 (5-37) U/L ALT 16 (0-40) U/L Alkaline Phosphatase 70 (39-117) U/L Albumin 4.7 (3.5-5.0) g/dL Urine 10/19/25 Range/Units 15:48 Urine Color Yellow Urine Appearance Clear Urine pH 7.0 (5.0-9.0) Ur Specific [place] 1.025 (1.005-1.025) Urine Protein Negative (Neg-Trace) mg/dL Urine Glucose (UA) >=1000 H (Negative) mg/dL <RICARDO Prakash Last Filed: 10/20/25 09:39> Abdomen CT scan report/results: report reviewed and image reviewed <RICARDO Prakash Last Filed: 10/20/25 09:39> Abdominal ultrasound report/results: report reviewed and image reviewed <Moni Barber PA-C Last Filed: 10/20/25 09:39> Additional studies: HIDA and labs reviewed <Moni SunilRICARDO luz Víctor Last Filed: 10/20/25 09:39> Assessment and Plan (1) Dyskinesia of gallbladder: Status: Acute <Moni Barber PA-C [employer] Last Filed: 10/20/25 09:39> (2) Abdominal pain: Qualifiers: Abdominal location: right upper quadrant Qualified Code(s): R10.11 - Right upper quadrant pain <Moni Barber PA-C [employer] Last Filed: 10/20/25 09:39> Status: Acute <Moni Barber PA-C [employer] Last Filed: 10/20/25 09:39> 79 year old male with multiple medical comorbidities presenting with over a week of RUQ abd pain with multiple ED and PCP visits with extensive work up including labs, chest CTA, CXR, CT scan abd/pelvis and ABD US essentially unremarkable except for HIDA suggestive of biliary dyskinesia/chronic cholecystitis. Due to his continued pain and multiple visits he was admitted for observation. He has continued pain this morning and his RUQ is tender with a postive jean baptiste sign. He may have element of biliary dyskinesia with possible acute cholecystitis given the continued RUQ pain and tenderness. We did discuss surgical intervention with laparoscopic cholecystectomy possible open as his work up has been otherwise negative. Risks, benefits, alternatives of laparoscopic possible open cholecystectomy were reviewed with the patient including but not limited to bleeding, infection, numbness, pain, poor healing, injury to the liver, bowel or bile ducts, leak, retained stones. We also did discuss that it is possible that this may not alleviate his pain. The patient wishes to proceed. Arrangements will be made for this.?All questions were answered. Cont NPO, IVF for now. Hospitalist consult for management of medical comorbidities. Patient has significant cardiac history but saw cardiology over the summer and was cleared for shoulder arthroscopy however he reports surgery was cancelled twice by ortho. <Moni Barber PA-C [employer] Last Filed: 10/20/25 09:39> 79 year old male with multiple medical comorbidities presenting with over a week of RUQ abd pain with multiple ED and PCP visits with extensive work up including labs, chest CTA, CXR, CT scan abd/pelvis and ABD US essentially unremarkable except for HIDA suggestive of biliary dyskinesia/chronic cholecystitis. Due to his continued pain and multiple visits he was admitted for observation. He has continued pain this morning and his RUQ is tender with a postive jean baptiste sign. He may have element of biliary dyskinesia with possible acute cholecystitis given the continued RUQ pain and tenderness. We did discuss surgical intervention with laparoscopic cholecystectomy possible open as his work up has been otherwise negative. Risks, benefits, alternatives of laparoscopic possible open cholecystectomy were reviewed with the patient including but not limited to bleeding, infection, numbness, pain, poor healing, injury to the liver, bowel or bile ducts, leak, retained stones. We also did discuss that it is possible that this may not alleviate his pain. The patient wishes to proceed. Arrangements will be made for this.?All questions were answered. Cont NPO, IVF for now. Hospitalist consult for management of medical comorbidities. Patient has significant cardiac history but saw cardiology over the summer and was cleared for shoulder arthroscopy however he reports surgery was cancelled twice by ortho. Patient seen and examined, radiologic studies reviewed as well including HIDA scan which shows reduced ejection fraction suggestive of chronic cholecystitis/biliary dyskinesia. Patient has been having persistent symptoms in the right upper quadrant with pain, nausea and vomiting. No gallstones were noted by ultrasound however HIDA scan does reveal delayed emptying into the intestine and a reduced ejection fraction. We discussed laparoscopic or possible open cholecystectomy including the risks, alternatives and benefits. He expressed understanding and consents to proceeding with the surgery. He is receiving Trulicity in his last dose was on Friday. The surgery should be considered emergency given the severity of his abdominal pain. <Jax Camarena MD - Last Filed: 10/20/25 11:14> Quality Stroke Does the patient have a stroke diagnosis?: No <Moni Barber PA-C - Last Filed: 10/20/25 09:39> VTE Prior VTE?: No <Moni Barber PA-C - Last Filed: 10/20/25 09:39> VTE Risk Level:: Surgical - high <Moni Barber PA-C - Last Filed: 10/20/25 09:39> VTE Device Contraindication: N/A - Device Ordered <Moni Barber PA-C - Last Filed: 10/20/25 09:39> VTE Drug Contraindication: Treatment Not Indicated <Moni Barber PA-C - Last Filed: 10/20/25 09:39> Procedures Date of Service Date of Service: 10/20/25 <Moni Barber PA-C - Last Filed: 10/20/25 09:39> 10/20/25 <Jax Camarena MD - Last Filed: 10/20/25 11:14>
[2025-10-20] MEDS: Lactated Ringers 1,000 ML 100 ML IVCONT ×2 (05:51→16:38)
[2025-10-20 06:52] LABS: Glucose, Whole Blood 130 mg/dL (60-115)
[2025-10-20] MEDS: Lactated Ringers 1,000 ML 80 ML IVCONT (13:09)
[2025-10-20 13:14] LABS: Glucose, Whole Blood 85 mg/dL (60-115)
[2025-10-20] MEDS: cefoTEtan disodium 2 GM VIAL IVPUSH (14:05)
--- NOTE | 2025-10-20 14:50 | MHC.CM.PN ---
Attempted CM assessment. Per RN, patient has not arrived to the unit, in surgery and will come to unit this evening. Will attempt CM assessment tomorrow. HCP on file.
--- NOTE | 2025-10-20 14:58 | W.PM.OPN ---
Operative Note Operative Note Date of Service: 10/20/25 Narrative: Preoperative diagnosis: Biliary dyskinesia Postoperative diagnosis: Same Procedure: Laparoscopic cholecystectomy Surgeon: Jax Camarena MD Set Up And Lay Out Inspector: Moni Barber PA-C; Elan Earl PA-C Anesthesia: General endotracheal Indications for procedure: 79-year-old male patient presenting with complaints of abdominal pain mainly in the right upper quadrant with a an extensive workup which revealed no evidence of gallstones however HIDA scan today revealed reduced ejection fraction suggestive of biliary dyskinesia. He presents for laparoscopic or possible open cholecystectomy. Operative findings: Normal-appearing gallbladder without gallstones minimal inflammatory changes Specimen: gallbladder Estimated blood loss: Less than 2 mL Complications: None Procedure details: Patient was brought to the OR and placed in a supine position. After administering general anesthesia the patient's abdomen was prepped with ChloraPrep and draped in a sterile fashion. A surgical time-out was called the consent confirmed. Patient received preoperative antibiotics and Venodyne boots were in place. Local anesthesia consisting of 0.5% Sensorcaine without epinephrine was infiltrated in a periumbilical region. A 5 mm incision was made above the umbilicus in a transverse fashion. The Veress needle was then inserted while elevating abdominal cavity with towel clips. After positive drop test the abdomen was insufflated to a pressure of 15 mm of mercury. The Veress needle was then removed and a 5 mm trocar inserted. The camera was inserted in the abdomen explored. A 12 mm trocar was then placed in the epigastrium. Two 5 mm trocars placed in the right upper quadrant by the producer assistant. The patient was placed in reverse Trendelenburg positioning and rotated to the left. The gallbladder was grasped with the fundus and retracted cephalad by the producer assistant. The infundibulum was then grasped and retracted away from the liver bed, also by the producer assistant. The Dolphin dissected was then used by the surgeon to dissect the peritoneum off the infundibulum to reveal the junction with the cystic duct. Cystic artery was noted slightly medial and posterior to the cystic duct. After obtaining a critical view the cystic duct was doubly clipped and divided. The cystic artery was then doubly clipped and divided. The gallbladder was then dissected off the liver bed using electrocautery with an L hook. Hemostasis was assured all times using the electrocautery. When the gallbladder is completely dissected off the liver bed was placed in an Endo-Catch bag and brought out through the epigastric incision. The gallbladder was sent to pathology for further examination. The abdomen was then re-examined. The liver bed was irrigated and suctioned dry. No bleeding or bile leak could be identified. CO2 was then evacuated and all trocars removed. Fascia was closed at the epigastric incision using a [id number] 0 Polysorb suture. Skin was closed in all incisions using a subcuticular 4 0 Polysorb suture by both the surgeon and producer assistant. Sterile dressings consisting of Steri-Strips, 2 x 2 gauze, and Tegaderm were then applied. The patient tolerated the procedure well. Sponge instrument and needle counts reported as correct. The patient was transferred to PACU in stable condition.
[2025-10-20 16:14] LABS: Glucose, Whole Blood 141 mg/dL (60-115)
[2025-10-20] MEDS: 0.9 % Sodium Chloride Flush 3 ML SYRINGE IVFLUSH ×2 (16:38→21:19)
--- NOTE | 2025-10-20 17:24 | P.CONHOSP_ITS ---
History of Present Illness Data of Consult Service Date: 10/20/25 Primary Care Provider: Aaron Collazo MD [facility] Reason for consult: Medical management 79-year-old male with past medical history significant for DM, CKD, CAD status post quadruple bypass in 2019, HTN, HLD, GERD who presented to the ED complaining of worsening right upper quadrant abdominal pain. Patient with multiple episodes and presenting to the ED as well as PCP for same complaint. Patient had extensive workup done including but not limited to CT scan, abdominal ultrasound. Given suspicion for possible biliary dyskinesia, HIDA scan obtained which showed delayed biliary to bowel transit with low normal gallbladder EF concerning for gallbladder dyskinesia or chronic cholecystitis. Patient taken to the OR today for cholecystectomy. Internal Medicine consulted due to patient's multiple medical comorbidities. Review of Systems 2 Review of Systems: Yes all other systems are reviewed and are negative [facility] Medical History Chest pain Type 2 diabetes mellitus Chronic renal insufficiency Iron deficiency anemia HTN (hypertension) Sciatic nerve palsy, left BPH (benign prostatic hyperplasia) Fatty liver Renal calculi Adrenal adenoma GERD (gastroesophageal reflux disease) Hypercholesterolemia Coronary artery disease Overweight (BMI 25.0-29.9) Family History Father Diabetes Hypertension CVD (cardiovascular disease) Mother Diabetes Surgical History Hx of cystoscopy Hx of hand surgery History of transurethral resection of prostate History of esophagogastroduodenoscopy (EGD) H/O colonoscopy Hx of heart artery stent S/P CABG x 4 (~08/2019) History of prostate surgery History of arthroscopy of left shoulder History of tonsillectomy Social History Household Members: Spouse Housing: Apartment Are you a primary field care manager to a significant other at home: No Do you presently have visiting nurse or other home services: No Alcohol intake: never Patient Tobacco Use Status: Former Tobacco user Tobacco use type: Cigarette Cigarette Packs Per Day: 1.5 Years Smoked: 25 e-Cigarette/Vaping Use: Never Used Second Hand Smoke Exposure: No service: No Current occupational status: retired Cognitive needs: Yes (cane) Hearing needs: No Vision needs: Yes (perscription glasses) Meds Allergies Allergy/AdvReac Type Severity Reaction Status Date / Time Penicillins Allergy Mild Rash Verified 10/19/25 07:53 linagliptin (Tradjenta) AdvReac Mild diarrhea Verified 10/19/25 07:53 lisinopril AdvReac Mild Cough Verified 10/19/25 07:53 Active Medications: Current Medications Acetaminophen (Acetaminophen 325 Mg Tablet) 650 mg PO Q6H PRN PRN Reason: Pain, Mild 1-3,fever,headache Aspirin (Aspirin Enteric Coated 81 Mg Tablet.Dr) 81 mg PO DAILY PJ Calcium Carbonate (Calcium Carbonate 750 Mg Tab.Chew) 750 mg PO Q4H PRN PRN Reason: Heartburn Dextrose (Dextrose 50 % 25 Gm/50 Ml Syringe) 25 gm IVPUSH Q15M PRN; Protocol PRN Reason: per Hypoglycemia Standing Ord. Docusate Sodium (Docusate Sodium 100 Mg Capsule) 100 mg PO BID PRN PRN Reason: constipation Finasteride (Finasteride 5 Mg Tablet) 5 mg PO DAILY [facility] Last Admin: 10/20/25 08:50 Dose: 5 mg Glucose (Glucose Gel 15 Gm Gel..Gram.) 15 gm PO Q15M PRN; Protocol PRN Reason: per Hypoglycemia Standing Ord. Haloperidol Lactate (Haloperidol Lactate 5 Mg/Ml Vial) 0.5 mg IVPUSH ONCE PRN PRN Reason: intractable nausea Stop: 10/20/25 21:04 Hydromorphone HCl (Hydromorphone Hcl 1 Mg/Ml Syringe) 0.5 mg IVPUSH Q4H PRN; Protocol PRN Reason: Pain, Severe (Pain Scale 7-10) Last Admin: 10/20/25 13:07 Dose: 0.5 mg Hydromorphone HCl (Hydromorphone Hcl 1 Mg/Ml Syringe) 0.25 mg IVPUSH Q5M PRN PRN Reason: Pain, Moderate to Severe (Pain Scale 4-10) Lactated Ringer's (Lr) 1,000 mls @ 100 mls/hr IVCONT .Q10H [facility] Last Admin: 10/20/25 16:38 Dose: 100 mls/hr Insulin Human Lispro (Insulin Lispro 100 Unit/Ml 3 Ml Vial) 0 unit SUBCUT QIDACHS [facility]; Protocol Last Admin: 10/20/25 16:38 Dose: Not Given Isosorbide Mononitrate (Isosorbide Mononitrate 30 Mg Tab.Er.24h) 30 mg PO DAILY [facility]; Protocol Last Admin: 10/20/25 08:50 Dose: 30 mg Latanoprost (Latanoprost 0.005 % Ophth Sailaja 2.5 Ml Drops) 1 drop EYE-BOTH BEDTIME [facility] Magnesium Hydroxide (Milk Of Magnesia 30 Ml Oral.Susp) 30 ml PO DAILY PRN PRN Reason: Constipation Melatonin (Melatonin 3 Mg Tablet) 6 mg PO BEDTIME PRN PRN Reason: Insomnia Metoprolol Tartrate (Metoprolol Tartrate 25 Mg Tablet) 25 mg PO BID [facility]; Protocol Last Admin: 10/20/25 08:50 Dose: 25 mg Naloxone HCl (Naloxone Hcl 0.4 Mg/Ml Vial) 0.04 mg IVPUSH Q5M PRN PRN Reason: Excessive sedation or RR < 8 Omeprazole (Omeprazole 20 Mg Capsule.Dr) 20 mg PO DAILY@0630 [facility] Last Admin: 10/20/25 05:51 Dose: 20 mg Ondansetron HCl (Ondansetron Hcl 4 Mg/2 Ml Vial) 4 mg IVPUSH Q8H PRN PRN Reason: Nausea and Vomiting Oxycodone HCl (Oxycodone Hcl Immed Release 5 Mg Tablet) 5 mg PO Q6H PRN PRN Reason: Pain, Moderate(Pain Scale 4-6) Polyethylene Glycol (Polyethylene Glycol 3350 17 Gm Powd.Pack) 17 gm PO DAILY [facility] Last Admin: 10/20/25 08:51 Dose: Not Given Sodium Chloride (0.9 % Sodium Chloride Flush 3 Ml Syringe) 3 ml IVFLUSH QSHIFT [facility] Last Admin: 10/20/25 16:38 Dose: 3 ml Vitamin D (Cholecalciferol (Vitamin D3) 25 Mcg Tablet) 25 mcg PO DAILY [facility] Home Medications ?Medication ?Instructions ?Recorded ?Confirmed ?Last Taken ?Type aspirin 81 mg tablet,delayed 81 mg PO DAILY 09/13/20 1 12/20/24 10/19/25 History release cholecalciferol (vitamin D3) 25 25 mcg PO DAILY 10/19/25 10/19/25 History mcg (1,000 unit) tablet magnesium oxide 400 mg PO DAILY 09/13/2002/08/25 History blood sugar diagnostic #10 ea 01/08/21 08/30/25 Unk nown History zinc acetate 25 mg (zinc) capsule 25 mg PO DAILY 01/1210/19/25 10/19/25 History dulaglutide 3 mg/0.5 mL 3 mg subcut RODRIGUEZ 10/19/2502/0810/16/25 History subcutaneous pen injector (Trulicity) empagliflozin 25 mg tablet 25 mg PO DAILY@1700 5 10/19/25 10/19/25 History finasteride 5 mg tablet (Proscar) 5 mg PO BEDTIME pros laird 10/19/25 10/19/25 10/18/25 History latanoprost 0.005 % eye drops 1 drp ophthalmic (eye) B EDTIME 10/19/25 10/19/25 10/18/25 History omeprazole 20 mg capsule,delayed 20 mg PO DAILY@0630 1 12/20/24 10/19/25 10/19/25 History release Physical Exam 2 Vital Signs and Narrative: Vital Signs: Last Vital Signs Temp 97.5 F 10/20/25 16:00 Pulse 79 10/20/25 16:00 Resp 16 10/20/25 16:00 BP 175/80 H 10/20/25 16:00 Pulse Ox 92 10/20/25 16:00 O2 Del Method Room Air 10/20/25 16:00 O2 Flow Rate 2 10/20/25 15:15 BMI result Body Mass Index 22.1 General: AxOx3, No acute distress Head: AT/NC ENT: Moist mucous membranes Neck: supple CVS; RRR, S1 S2 normal Lungs: Clear bilateral breath sounds, no wheezes or crackles Abd: Mild right upper quadrant tenderness Ext: No edema and no calf tenderness MSK: moving all 4 limbs Skin: No cyanosis or edema Psych: Cooperative with exam Neurology: no focal deficit Results Labs 10/19/25 09:24 10/19/25 09:24 Labs: Laboratory Results - last 24 hr 10/19/25 10/20/25 10/20/25 20:28 06:45 13:11 POC Glucose 213 H 130 H 85 10/20/25 16:07 POC Glucose 141 H Assessment and Plan (1) Diabetes mellitus with chronic kidney disease: Status: Acute (2) Dyskinesia of gallbladder: Status: Acute Plan Assessment: 79-year-old male who presented to the ED complaining of right upper quadrant pain, with HIDA scan showing gallbladder dyskinesia, underwent cholecystectomy on 10/20. Impression Gallbladder dyskinesia status post cholecystectomy on 10/20 CAD status post quadruple bypass in 2019 T2DM, chronic HLD HTN CKD stage 3 Plan At this time we will continue to monitor for worsening abdominal pain, any worsening secretions from surgical side, Continue with aspirin, Lopressor and Imdur, we will restart rest of medications likely tomorrow Initiate insulin sliding scale, we will hold diabetic medications given recent surgery, we will initiate once able Continue with multimodal pain management Rest of management per General surgery, thank you for this consult, we will continue to follow at this time Disposition: All questions and concerns with the patient were answered to satisfaction. All pertinent clinical documents, images and labs were reviewed. DISCLAIMER: This document was created using voice recognition software. Any mistakes in the prescription are unintentional. An attempt was made to focus for accuracy, but to expedite availability, some errors may persist. Please contact with any need for correction or further clarification
[2025-10-20] MEDS: Latanoprost 0.005 % Ophth Sol 2.5 ML DROPS 1 DROP EYE-BOTH (22:44)
[2025-10-21] MEDS: Lactated Ringers 1,000 ML 100 ML IVCONT (01:00)
[2025-10-21 03:36] VITALS: BP 132/64; PULSE 71; RESP 18; TEMP 36.2; O2SAT 94
--- NOTE | 2025-10-21 07:35 | P.PNGS_ITS ---
Subjective Subjective Date of Service: 10/21/25 <Elan Earl PA-C - Last Filed: 10/21/25 07:43> 10/21/25 <Jax Camarena MD - Last Filed: 10/21/25 07:56> Interval history: doing well, pain controlled. has been up and out of bed to bathroom without issue. Tolerated meal after surgery yesterday. Denies nausea or vomiting. <Elan Earl PA-C - Last Filed: 10/21/25 07:43> Physical Exam 2 Vital Signs: Vital Signs: Last Vital Signs Temp 97.2 F 10/21/25 03:36 Pulse 71 10/21/25 03:36 Resp 18 10/21/25 03:36 BP 132/64 10/21/25 03:36 Pulse Ox 94 10/21/25 03:36 O2 Del Method Room Air 10/21/25 03:36 O2 Flow Rate 2 10/20/25 15:15 BMI result Body Mass Index 22.1 <Elan Earl PA-C - Last Filed: 10/21/25 07:43> Const: General: comfortable and no acute distress <Elan Earl PA-C - Last Filed: 10/21/25 07:43> Resp: Effort & Inspection: normal respiratory effort and able to speak in complete sentences <RICARDO Gracia Last Filed: 10/21/25 07:43> GI: Other: Incision sites clean dry intact. Mild saturation of umbilical dressing. <Elan Earl PA-C - Last Filed: 10/21/25 07:43> Inspection: No distended <Elan Earl PA-C - Last Filed: 10/21/25 07:43> Palpation (GI): Soft to palpation and Tenderness to palpation present (GI) (Right upper quadrant incision sites.) <RICARDO Gracia Last Filed: 10/21/25 07:43> Objective Data Active Medications Acetaminophen (Acetaminophen 325 Mg Tablet) 650 mg PO Q6H PRN PRN Reason: Pain, Mild 1-3,fever,headache Aspirin (Aspirin Enteric Coated 81 Mg Tablet.Dr) 81 mg PO DAILY PJ Calcium Carbonate (Calcium Carbonate 750 Mg Tab.Chew) 750 mg PO Q4H PRN PRN Reason: Heartburn Dextrose (Dextrose 50 % 25 Gm/50 Ml Syringe) 25 gm IVPUSH Q15M PRN; Protocol PRN Reason: per Hypoglycemia Standing Ord. Docusate Sodium (Docusate Sodium 100 Mg Capsule) 100 mg PO BID PRN PRN Reason: constipation Finasteride (Finasteride 5 Mg Tablet) 5 mg PO DAILY [facility] Last Admin: 10/20/25 08:50 Dose: 5 mg Documented By: RAÚL Glucose (Glucose Gel 15 Gm Gel..Gram.) 15 gm PO Q15M PRN; Protocol PRN Reason: per Hypoglycemia Standing Ord. Hydromorphone HCl (Hydromorphone Hcl 1 Mg/Ml Syringe) 0.5 mg IVPUSH Q4H PRN; Protocol PRN Reason: Pain, Severe (Pain Scale 7-10) Last Admin: 10/20/25 13:07 Dose: 0.5 mg Documented By: SLADE Hydromorphone HCl (Hydromorphone Hcl 1 Mg/Ml Syringe) 0.25 mg IVPUSH Q5M PRN PRN Reason: Pain, Moderate to Severe (Pain Scale 4-10) Lactated Ringer's (Lr) 1,000 mls @ 100 mls/hr IVCONT .Q10H [facility] Last Admin: 10/21/25 01:00 Dose: 100 mls/hr Documented By: DAKOTAH Insulin Human Lispro (Insulin Lispro 100 Unit/Ml 3 Ml Vial) 0 unit SUBCUT QIDACHS [facility]; Protocol Last Admin: 10/20/25 21:13 Dose: 6 unit Documented By: DAKOTAH Isosorbide Mononitrate (Isosorbide Mononitrate 30 Mg Tab.Er.24h) 30 mg PO DAILY [facility]; Protocol Last Admin: 10/20/25 08:50 Dose: 30 mg Documented By: RAÚL Latanoprost (Latanoprost 0.005 % Ophth Sailaja 2.5 Ml Drops) 1 drop EYE-BOTH BEDTIME [facility] Last Admin: 10/20/25 22:44 Dose: 1 drop Documented By: DAKOTAH Comments: administration late due to medication not being available at scheduled time Magnesium Hydroxide (Milk Of Magnesia 30 Ml Oral.Susp) 30 ml PO DAILY PRN PRN Reason: Constipation Melatonin (Melatonin 3 Mg Tablet) 6 mg PO BEDTIME PRN PRN Reason: Insomnia Metoprolol Tartrate (Metoprolol Tartrate 25 Mg Tablet) 25 mg PO BID [facility]; Protocol Last Admin: 10/20/25 21:12 Dose: 25 mg Documented By: DAKOTAH Naloxone HCl (Naloxone Hcl 0.4 Mg/Ml Vial) 0.04 mg IVPUSH Q5M PRN PRN Reason: Excessive sedation or RR < 8 Omeprazole (Omeprazole 20 Mg Capsule.Dr) 20 mg PO DAILY@0630 [facility] Last Admin: 10/21/25 05:28 Dose: 20 mg Documented By: DAKOTAH Ondansetron HCl (Ondansetron Hcl 4 Mg/2 Ml Vial) 4 mg IVPUSH Q8H PRN PRN Reason: Nausea and Vomiting Oxycodone HCl (Oxycodone Hcl Immed Release 5 Mg Tablet) 5 mg PO Q6H PRN PRN Reason: Pain, Moderate(Pain Scale 4-6) Polyethylene Glycol (Polyethylene Glycol 3350 17 Gm Powd.Pack) 17 gm PO DAILY [facility] Last Admin: 10/20/25 08:51 Dose: Not Given Documented By: RAÚL Non-Admin Reason: Patient Refused Sodium Chloride (0.9 % Sodium Chloride Flush 3 Ml Syringe) 3 ml IVFLUSH QSHIFT [facility] Last Admin: 10/20/25 21:19 Dose: 3 ml Documented By: DAKOTAH Vitamin D (Cholecalciferol (Vitamin D3) 25 Mcg Tablet) 25 mcg PO DAILY [facility] <Elan Earl PA-C - Last Filed: 10/21/25 07:43> Labs CBC & Chem 7: 10/19/25 09:24 10/19/25 09:24 <Elan Earl PA-C - Last Filed: 10/21/25 07:43> Labs: Laboratory Results - last 24 hr 10/20/25 10/20/25 10/20/25 13:11 16:07 21:01 POC Glucose 85 141 H 267 H <Elan Earl PA-C - Last Filed: 10/21/25 07:43> Procedures Date of Service Date of Service: 10/21/25 <Elan Earl PA-C - Last Filed: 10/21/25 07:43> 10/21/25 <Jax Camarena MD - Last Filed: 10/21/25 07:56> Progress Note: A&P Assessment and plan (1) Dyskinesia of gallbladder: Status: Acute <Elan Earl PA-C - Last Filed: 10/21/25 07:43> (2) S/P laparoscopic cholecystectomy: Status: Acute <Elan Earl PA-C - Last Filed: 10/21/25 07:43> Assessment and Plan: 79-year-old male with biliary dyskinesia now POD 1 s/p laparoscopic cholecystectomy. Patient doing well. Reporting minimal pain. Denying nausea or vomiting. Tolerated diet after procedure yesterday. Ambulating without issue. Feels ready to go home. Abdominal exam soft, appropriately tender localized around incision sites in the right upper quadrant. Incision site dressings clean intact, some mild saturation of the umbilical dressing. We will discharge home today, patient will follow up in 1-2 weeks in the office. We will send prescription for narcotics as well as stool softener. Patient had large stool burden on imaging on presentation. Has struggled with constipation before. I reinforced importance of taking stool softener with narcotics as well as increasing hydration and dietary fiber intake. Additionally reinforced return precautions, patient understands. <Elan Earl PA-C - Last Filed: 10/21/25 07:43> 79-year-old male with biliary dyskinesia now POD 1 s/p laparoscopic cholecystectomy. Patient doing well. Reporting minimal pain. Denying nausea or vomiting. Tolerated diet after procedure yesterday. Ambulating without issue. Feels ready to go home. Abdominal exam soft, appropriately tender localized around incision sites in the right upper quadrant. Incision site dressings clean intact, some mild saturation of the umbilical dressing. We will discharge home today, patient will follow up in 1-2 weeks in the office. We will send prescription for narcotics as well as stool softener. Patient had large stool burden on imaging on presentation. Has struggled with constipation before. I reinforced importance of taking stool softener with narcotics as well as increasing hydration and dietary fiber intake. Additionally reinforced return precautions, patient understands. He is Patient feels much improved this morning, tolerating po well. Wounds clean, some discharge on umbilical incision. He is ready for discharge today with follow up in office in one week. He was encouraged to remain on a low fat diet and avoid lifting > 10 pounds for 2 weeks. <Jax Camarena MD - Last Filed: 10/21/25 07:56> Time Spent With Patient Time: Total time managing care of this patient today ____ minutes. <Elan Earl PA-C - Last Filed: 10/21/25 07:43> Quality Stroke Does the patient have a stroke diagnosis?: No <Elan Earl PA-C - Last Filed: 10/21/25 07:43> VTE Prior VTE?: No <Elan Earl PA-C - Last Filed: 10/21/25 07:43> VTE Risk Level:: Surgical - high <Elan aErl PA-C - Last Filed: 10/21/25 07:43> VTE Device Contraindication: N/A - Device Ordered <Elan Earl PA-C - Last Filed: 10/21/25 07:43> VTE Drug Contraindication: Treatment Not Indicated <Elan Earl PA-C - Last Filed: 10/21/25 07:43>
[2025-10-21] MEDS: Aspirin Enteric Coated 81 MG TABLET.DR PO (07:44)
[2025-10-21 07:46] VITALS: BP 157/79; PULSE 78; RESP 18; TEMP 36; O2SAT 95
[2025-10-21 08:03] LABS: Glucose, Whole Blood 110 mg/dL (60-115)
--- NOTE | 2025-10-21 08:20 | PM.DS ---
DS: Providers Provider Date of Service: 10/21/25 Date of admission: 10/19/25 19:13 Date of discharge: 10/21/25 Primary care physician: Aaron Collazo MD Admitting clinician: Jax Camarena Attending physician on admission: Jax Camarena Consults: 10/20/25 09:36 Consult to Hospitalist Routine Comment: Consulting Provider: [facility] Hospitalists Reason For Exam: DM, CAD, CKD Attending physician on discharge: Jax Camarena DS: Diagnosis Discharge Diagnosis (1) Dyskinesia of gallbladder: Status: Acute (2) S/P laparoscopic cholecystectomy: Status: Acute DS: Summary Hospital Course Hospital Course: Admission HPI: Calderon Crowley is a 79 year old male PMH of diabetes mellitus, CKD, CAD s/p quadruple bypass in 2019, hypertension, iron deficiency anemia, HLD, GERD, who presented to the ED with complaints of RUQ abd pain. The pain has been present for a little over a week now. It is sharp and stabbing in nature and associated with reduced oral intake secondary to the severity. He did report some nausea the few days prior but this has resolved. He has been seen in the ED as well by his PCP multiple times since the end of September for the same pain. He was initially evaluated here on 10/12/[address], EKG was performed which was negative for acute pathology. He was sent home with diagnosis of rib pain. The RUQ pain persisted and he presented again on 10/14/[address] scan abd/pelvis was performed and he was diagnosed with sigmoid diverticulitis, constipation and sent home on Augmentin. He was then evaluated by his PCP and rib xray was performed on 10/17/25 which was negative for fracture. The pain has continued and he presented again to the ED yesterday where he had an extensive work up including CBC, BMP, LFTs and CT scan abd/pelvis which were unremarkable. ABD US was then performed which was also unremarkable however he had a sonographic cuellar sign and therefore HIDA was obtained which showed delayed biliary to bowel transit with low-normal gallbladder ejection fraction raising the concern for gallbladder dyskinesia or chronic cholecystitis. Given his multiple visits and persistent abdominal pain with inability to tolerate oral intake, he was admitted for observation. He reports continued pain this morning. He reports the only time he has not had RUQ abd pain in over a week was following the IV pain administration. He denies similar prior episodes of pain but does state the severity is similar to when he had kidney stones but the pain is overall different. He denies fevers, chills, diarrhea, cough, chest pain, SOB, change in skin color/urine or stool color. He does report . He reports constipation with no BM x 1 week, he did have a BM the day before yesterday after being given laxatives. He reports being very active prior to developing the pain and walks on the treadmill 4x/ week. He denies prior abdominal surgery. Hospital course: Patient admitted for biliary dyskinesia, had HIDA scan showing delayed empty and reduced ejection fraction. Patient was brought to the OR for laparoscopic cholecystectomy. The procedure was uncomplicated and the patient tolerated it well. He was transferred back to the [facility] floor. After the procedure he tolerated diet. Was able to ambulate within the room. On POD 1 patient was feeling very good, denying nausea or vomiting. Abdominal pain minimal. [place] ready to be discharged. At the time of discharge the patient was in stable condition his abdominal exam was soft, benign, appropriately tender around the incision in the right upper quadrant. We are discharging with a strong bowel regimen, Colace, MiraLax, Metamucil as patient had a very high stool burden on admission. Reinforced the importance of using this bowel regimen especially when taking narcotics. Also discussed increasing dietary fiber and water while doing this. Status at Discharge Functional status at discharge: independent ambulation Overall status at discharge: patient is progressing back to baseline Time Attestation Discharge Coordination Time (in mins): 30 Quality: Safe Use of Opioids Does Pt have an Active Cancer Diagnosis on the Problem List?: No Quality: Stroke Does the patient have a stroke diagnosis?: No Physical Exam Vital Signs: Vital Signs: Last Vital Signs Temp 96.8 F 10/21/25 07:46 Pulse 78 10/21/25 07:46 Resp 18 10/21/25 07:46 BP 157/79 H 10/21/25 07:46 Pulse Ox 95 10/21/25 07:46 O2 Del Method Room Air 10/21/25 07:46 O2 Flow Rate 2 10/20/25 15:15 BMI result Body Mass Index 22.1 Const: General: comfortable and no acute distress Resp: Effort & Inspection: normal respiratory effort and able to speak in complete sentences GI: Other: Incision sites clean dry intact. Mild saturation of umbilical dressing. Inspection: No distended Palpation (GI): Soft to palpation and Tenderness to palpation present (GI) (Right upper quadrant incision sites.) DS: Data Data Completed and Pending Pending studies at discharge: Pending at discharge 10/20/25 14:34 Surgical [PTH] Routine Labs on day of discharge: Laboratory Results - last 24 hr 10/20/25 10/20/25 10/20/25 13:11 16:07 21:01 POC Glucose 85 141 H 267 H 10/21/25 07:45 POC Glucose 110 Discharge Plan Discharge Patient Disposition: Home, Self-Care Referrals: Jax Camarena MD [Physician, General Surgery] - 1 Week Po,Aaron Reilly MD [Primary Care Provider, Internal Medicine] - 1 Week Discharge Medications: New docusate sodium [Colace] 100 mg capsule 100 mg PO BID Qty: 30 0RF polyethylene glycol 3350 [Miralax] 17 gram/dose powder 17 g PO DAILY PRN (Reason: constipation) Qty: 119 0RF Metamucil 3.4 gram/5.4 gram powder 1 tbsp PO DAILY Qty: 660 0RF Rx Instructions: mix into at least 8 oz of water or juice before administering oxycodone 5 mg tablet 5 mg PO Q6H PRN (Reason: pain) Qty: 20 0RF Rx Instructions: Partial Fill upon patient request. Continued (DME) blood sugar diagnostic Strip See Rx Instructions .ROUTE .MEDSUPPLY Qty: 10 Rx Instructions: As directed (DME) walking cane See Rx Instructions .Route .MEDSUPPLY Qty: 1 0RF Rx Instructions: As directed isosorbide mononitrate 30 mg tablet extended release 24 hr 30 mg PO DAILY Qty: 90 3RF furosemide 20 mg tablet 20 mg PO DAILY 90 Days Qty: 90 2RF lidocaine 5 % adhesive patch,medicated 2 patch topical DAILY Qty: 30 0RF Rx Instructions: leave on most painful area for up to 12 hrs latanoprost 0.005 % drops 1 drp ophthalmic (eye) BEDTIME omeprazole 20 mg capsule,delayed release(DR/EC) 20 mg PO DAILY@0630 finasteride [Proscar] 5 mg tablet 5 mg PO BEDTIME empagliflozin 25 mg tablet 25 mg PO DAILY@1700 Trulicity 3 mg/0.5 mL pen injector 3 mg subcut RODRIGUEZ Rx Instructions: takes on Sundays cholecalciferol (vitamin D3) 25 mcg (1,000 unit) tablet 25 mcg PO DAILY aspirin 81 mg tablet,delayed release (DR/EC) 81 mg PO DAILY magnesium oxide 400 mg magnesium tablet 400 mg PO DAILY (DME) blood sugar diagnostic Strip See Rx Instructions .ROUTE .MEDSUPPLY Qty: 2 3RF Rx Instructions: As directed check blood sugar 2 times a day (DME) OneTouch Ultra Test Strip See Rx Instructions .Route Qty: 2 3RF Rx Instructions: As directed check bs BID zinc acetate 25 mg (zinc) capsule 25 mg PO DAILY metoprolol tartrate 25 mg tablet 25 mg PO BID 90 Days Qty: 180 2RF glipizide 10 mg tablet extended release 24hr 10 mg PO DAILY Qty: 90 2RF Discontinued levofloxacin 500 mg tablet 500 mg PO DAILY 7 Days Qty: 7 0RF metronidazole 500 mg tablet 500 mg PO BID 7 Days Qty: 14 0RF Discharge Orders: Discharge Order (Routine); Ordered 10/21/25 Ordered By: Elan Earl Diet: Diabetic diet Activity on Discharge: No heavy lifting Stand Alone Forms: Patient Portal Discharge page Print Language: Vietnamese Activity Restrictions/Additional Instructions: If the incision area is tender, you may apply an ice pack for short intervals (No more than 20 minutes on, followed by at least 20 minutes off). Do not apply heat. Do not use creams, lotions, or topical antibiotics. Ok to shower. Remove clear dressings 3 days following your procedure. You have steri strips (small white strips) covering your incision- these will fall off ~1 week. No heavy lifting (>10lbs) or strenuous activity! Take Tylenol Extra-strength 1-2 tabs every 6 hours for the first day, then as needed. Oxycodone every 6-8 hours as needed for pain. Colace 100 mg morning and night as well as miralax daily for constipation. Begin metamucil (fiber supplementation) daily for constipation. Follow up in office with Dr. Camarena in 1 week. ([phone]) Call Your Doctor If: -Your temperature exceeds 101.5? F -You experience excessive abdominal pain or swelling -You have an unexpected reaction to medication -You have excessive bleeding -You experience persistent nausea or vomiting and are unable to tolerate any oral intake -Your incision shows signs of infection such as increased redness, swelling, excessive pain, drainage (light blood or clear fluid is normal) or heat Care Plan Goals: Return to baseline health and resume normal activities following recovery period. Health Concerns: biliary dyskinesia type 2 diabetes mellitus CKD CAD, hx of CABG Plan of Treatment: s/p laparoscopic cholecystectomy Pain control Bowel regimen Follow up with general surgery in 1 week Follow up with PCP Assessment: Doing well post op.
[2025-10-21] MEDS: oxyCODONE HCl Immed Release 5 MG TABLET PO (08:30)
--- NOTE | 2025-10-21 08:46 | HO.POSTANES ---
Post Anesthesia Evaluation Post Anesthesia Evaluation Date of Service: 10/21/25 Vital Signs: Vital Signs Temp Pulse Resp BP Pulse Ox O2 Del Method 10/21/25 07:46 96.8 F 78 18 157/79 H 95 Room Air 10/21/25 03:36 97.2 F 71 18 132/64 94 Room Air Anesthesia: General Mental Status: Awake Pain Control: Satisfactory Nausea/Vomiting: None Hydration: Adequate Anesthesia-Related Issues: No Anes. Related Issues
--- NOTE | 2025-10-21 09:35 | MHC.CM.PN ---
PT REPORTS HE LIVES WITH HIS DAUGHTER AND IS INDEPENDENT WITH CARE HE HAS DM SUPPLIES AND A CANE HE USES NEEDED HE HAS NO SERVICES AND DOES NOT FEEL HE NEEDS THEM COPY OF HCP REQUESTED PCP: JO ANN HALE OBSERVATION NOTICE DELIVERED DCP: HOME TODAY WITH NO SERVICES FAMILY TO TRANSPORT
[2025-10-21] MEDS: Lidocaine 4 % Patch ADH..PATCH 1 PATCH TRANSDERMA (10:22)
--- NOTE | 2025-10-21 10:58 | HO.PM.IMPN ---
Subjective Subjective Date of Service: 10/21/25 Interval History: Patient seen and exam this morning, complaining of right shoulder pain mentioned that this has been chronic, wishes to be given something to help control his pain. Review of Systems Review of Systems: Yes all other systems are reviewed and are negative Physical Exam Exam: Exam: General: AxOx3, No acute distress, complaining of right shoulder pain Head: AT/NC ENT: Moist mucous membranes Neck: supple CVS; RRR, S1 S2 normal Lungs: Clear bilateral breath sounds, no wheezes or crackles Abd: Soft non tender, non distended Ext: No edema and no calf tenderness, right shoulder tenderness with decreased ROM, with warm compress in place MSK: moving all 4 limbs Skin: No cyanosis or edema Psych: Cooperative with exam Neurology: no focal deficit Vital Signs: Vital Signs: Last Vital Signs Temp 96.8 F 10/21/25 07:46 Pulse 78 10/21/25 07:46 Resp 18 10/21/25 07:46 BP 157/79 H 10/21/25 07:46 Pulse Ox 95 10/21/25 07:46 O2 Del Method Room Air 10/21/25 07:46 O2 Flow Rate 2 10/20/25 15:15 BMI result Body Mass Index 22.1 Objective Data Active Medications Acetaminophen (Acetaminophen 325 Mg Tablet) 650 mg PO Q6H PRN PRN Reason: Pain, Mild 1-3,fever,headache Aspirin (Aspirin Enteric Coated 81 Mg Tablet.Dr) 81 mg PO DAILY [facility] Last Admin: 10/21/25 07:44 Dose: 81 mg Documented By: MELANIA Calcium Carbonate (Calcium Carbonate 750 Mg Tab.Chew) 750 mg PO Q4H PRN PRN Reason: Heartburn Dextrose (Dextrose 50 % 25 Gm/50 Ml Syringe) 25 gm IVPUSH Q15M PRN; Protocol PRN Reason: per Hypoglycemia Standing Ord. Docusate Sodium (Docusate Sodium 100 Mg Capsule) 100 mg PO BID PRN PRN Reason: constipation Finasteride (Finasteride 5 Mg Tablet) 5 mg PO DAILY [facility] Last Admin: 10/21/25 07:44 Dose: 5 mg Documented By: MELANIA Glucose (Glucose Gel 15 Gm Gel..Gram.) 15 gm PO Q15M PRN; Protocol PRN Reason: per Hypoglycemia Standing Ord. Hydromorphone HCl (Hydromorphone Hcl 1 Mg/Ml Syringe) 0.5 mg IVPUSH Q4H PRN; Protocol PRN Reason: Pain, Severe (Pain Scale 7-10) Last Admin: 10/20/25 13:07 Dose: 0.5 mg Documented By: SLADE Hydromorphone HCl (Hydromorphone Hcl 1 Mg/Ml Syringe) 0.25 mg IVPUSH Q5M PRN PRN Reason: Pain, Moderate to Severe (Pain Scale 4-10) Insulin Human Lispro (Insulin Lispro 100 Unit/Ml 3 Ml Vial) 0 unit SUBCUT QIDACHS [facility]; Protocol Last Admin: 10/21/25 07:45 Dose: Not Given Documented By: MELANIA Non-Admin Reason: No Insulin Coverage Isosorbide Mononitrate (Isosorbide Mononitrate 30 Mg Tab.Er.24h) 30 mg PO DAILY [facility]; Protocol Last Admin: 10/21/25 07:44 Dose: 30 mg Documented By: MELANIA Latanoprost (Latanoprost 0.005 % Ophth [place] 2.5 Ml Drops) 1 drop EYE-BOTH BEDTIME [facility] Last Admin: 10/20/25 22:44 Dose: 1 drop Documented By: DAKOTAH Comments: administration late due to medication not being available at scheduled time Lidocaine (Lidocaine 4 % Patch Adh..Patch) 1 patch TRANSDERMA DAILY [facility]; Protocol Last Admin: 10/21/25 10:22 Dose: 1 patch Documented By: MELANIA Magnesium Hydroxide (Milk Of Magnesia 30 Ml Oral.Susp) 30 ml PO DAILY PRN PRN Reason: Constipation Melatonin (Melatonin 3 Mg Tablet) 6 mg PO BEDTIME PRN PRN Reason: Insomnia Metoprolol Tartrate (Metoprolol Tartrate 25 Mg Tablet) 25 mg PO BID [facility]; Protocol Last Admin: 10/21/25 07:44 Dose: 25 mg Documented By: MELANIA Naloxone HCl (Naloxone Hcl 0.4 Mg/Ml Vial) 0.04 mg IVPUSH Q5M PRN PRN Reason: Excessive sedation or RR < 8 Omeprazole (Omeprazole 20 Mg Capsule.Dr) 20 mg PO DAILY@0630 [facility] Last Admin: 10/21/25 05:28 Dose: 20 mg Documented By: DAKOTAH Ondansetron HCl (Ondansetron Hcl 4 Mg/2 Ml Vial) 4 mg IVPUSH Q8H PRN PRN Reason: Nausea and Vomiting Oxycodone HCl (Oxycodone Hcl Immed Release 5 Mg Tablet) 5 mg PO Q6H PRN PRN Reason: Pain, Moderate(Pain Scale 4-6) Last Admin: 10/21/25 08:30 Dose: 5 mg Documented By: MELANIA Polyethylene Glycol (Polyethylene Glycol 3350 17 Gm Powd.Pack) 17 gm PO DAILY [facility] Last Admin: 10/21/25 07:45 Dose: 17 gm Documented By: MELANIA Sodium Chloride (0.9 % Sodium Chloride Flush 3 Ml Syringe) 3 ml IVFLUSH QSHIFT [facility] Last Admin: 10/21/25 08:00 Dose: Not Given Documented By: MELANIA Non-Admin Reason: IV Running Vitamin D (Cholecalciferol (Vitamin D3) 25 Mcg Tablet) 25 mcg PO DAILY [facility] Last Admin: 10/21/25 08:30 Dose: 25 mcg Documented By: MELANIA Labs 10/19/25 09:24 10/19/25 09:24 Labs: Laboratory Results - last 24 hr 10/20/25 10/20/25 10/20/25 13:11 16:07 21:01 POC Glucose 85 141 H 267 H 10/21/25 07:45 POC Glucose 110 Assessment and Plan (1) Dyskinesia of gallbladder: Status: Acute Plan Assessment: 79-year-old male who presented to the ED complaining of right upper quadrant pain, with HIDA scan showing gallbladder dyskinesia, underwent cholecystectomy on 10/20. Impression Gallbladder dyskinesia status post cholecystectomy on 10/20 CAD status post quadruple bypass in 2019 T2DM, chronic HLD HTN CKD stage 3 Right shoulder pain Plan improved and tolerating liquids Continue with aspirin, Lopressor and Imdur, restart medications on discharge continue home medications for diabetes will order Lidocaine external patch 4% to right shoulder, will send scripts to pharmacy Continue with multimodal pain management Rest of management per General surgery, thank you for this consult Disposition: All questions and concerns with the patient were answered to satisfaction. All pertinent clinical documents, images and labs were reviewed. Total time managing care of this patient today: 35 minutes. Quality Stroke Does the patient have a stroke diagnosis?: No VTE Prior VTE?: No VTE Risk Level:: Surgical - high VTE Device Contraindication: N/A - Device Ordered VTE Drug Contraindication: Treatment Not Indicated
[2025-10-21 11:08] LABS: Glucose, Whole Blood 255 mg/dL (60-115)
[2025-10-21 13:51] VITALS: BP 166/77; PULSE 82; TEMP 36.4; O2SAT 96
== END 2025-10-21 13:59 | disposition home or self-care (01) ==
LOC: HO.ED 11:01 → HO.EDOVER 19:40 → HO.S3 10-20 11:40
PROVIDERS: Emergency Medicine; Admitting Provider Physician Assistant Surgical; Emergency Provider Emergency Medicine; PCP Internal Medicine; Visit Provider Surgery
PROC: 0FT44ZZ Resection of Gallbladder, Percutaneous Endoscopic Approach (ICD-10-PCS; CPT 47562; principal; 2025-10-20 13:30)
DX: K82.8 Other specified diseases of gallbladder (principal); E11.22 Type 2 diabetes mellitus with diabetic chronic kidney disease; R10.11 Right upper quadrant pain; K59.00 Constipation, unspecified; I12.9 Hypertensive chronic kidney disease with stage 1 through stage 4 chronic kidney disease, or unspecified chronic kidney disease; N18.9 Chronic kidney disease, unspecified; E78.5 Hyperlipidemia, unspecified; Z79.899 Other long term (current) drug therapy
CPT/HCPCS: 47562; 36415; 74177; 76705; 78227; 80048; 80076; 81001; 82947; 83690; 85025; 88304; 96361; 96374; 96375; 96376; 99221; 99285; A9537; J0131; J0330; J0525; J1100; J1171; J2405; J2704; J2805; J3010; J7120; Q9967

== ENCOUNTER → 2025-10-19 10:43 | Outpatient (BNV) | payer OTHER, SELFPAY | PROVIDERS: Emergency Provider Emergency Medicine; PCP Internal Medicine; Visit Provider Radiology Diagnostic Radiology | DX: K57.30 Diverticulosis of large intestine without perforation or abscess without bleeding (principal); R10.11 Right upper quadrant pain; K76.0 Fatty (change of) liver, not elsewhere classified; K82.8 Other specified diseases of gallbladder | CPT/HCPCS: 74177; 76705; 78227 ==

== ENCOUNTER → 2025-10-19 19:13 | Outpatient (BNV) | payer OTHER, SELFPAY | PROVIDERS: Admitting Provider Physician Assistant Surgical; Emergency Provider Emergency Medicine; PCP Internal Medicine; Visit Provider Physician Assistant Surgical | DX: K80.42 Calculus of bile duct with acute cholecystitis without obstruction (principal); R10.11 Right upper quadrant pain | CPT/HCPCS: 47562; 99222 ==

== ENCOUNTER → 2025-10-19 19:13 | Outpatient (BNV) | payer OTHER, SELFPAY | PROVIDERS: Admitting Provider Physician Assistant Surgical; Emergency Provider Emergency Medicine; PCP Internal Medicine; Visit Provider Student in an Organized Health Care Education/Training Program | DX: E11.22 Type 2 diabetes mellitus with diabetic chronic kidney disease (principal); K82.8 Other specified diseases of gallbladder | CPT/HCPCS: 99223; 99232 ==

== ENCOUNTER 2025-10-25 09:37 | Outpatient (AMB) | payer OTHER, SELFPAY ==
[2025-10-25 09:51] VITALS: BP 128/78; PULSE 85; O2SAT 96; BMI 22.9
--- NOTE | 2025-10-25 09:51 | HO.NEPHOV_ITS ---
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 Soils Required: No Accompanied by: Self / Same As Patient Allergies Penicillins Allergy (Mild, Verified 10/25/25 09:54) Rash linagliptin (Tradjenta) Adverse Reaction (Mild, Verified 10/25/25 09:54) diarrhea lisinopril Adverse Reaction (Mild, Verified 10/25/25 09:54) Cough Medication List - Last Reconciled 10/25/25 by Timur Romo MD aspirin 81 mg PO DAILY blood sugar diagnostic As directed blood sugar diagnostic ([employer] Ultra Test strips) As directed check bs BID blood sugar diagnostic As directed check blood sugar 2 times a day cholecalciferol (vitamin D3) 25 mcg PO DAILY docusate sodium (Colace) 100 mg PO BID dulaglutide (Trulicity) 3 mg subcut RODRIGUEZ empagliflozin 25 mg PO DAILY@1700 finasteride (Proscar) 5 mg PO BEDTIME furosemide 20 mg PO DAILY 90 days glipizide ER 10 mg PO DAILY isosorbide mononitrate ER 30 mg PO DAILY latanoprost 0.005% 1 drp ophthalmic (eye) BEDTIME lidocaine 4% (Lidocaine Pain Relief) 1 patch See Protocol transdermal DAILY lidocaine 5% 2 patches topical DAILY magnesium oxide 400 mg PO DAILY metoprolol tartrate 25 mg PO BID 90 days omeprazole 20 mg PO DAILY@0630 oxycodone 5 mg PO Q6H PRN polyethylene glycol 3350 (Miralax) 17 grams PO DAILY PRN psyllium husk (Metamucil) 1 tbsp PO DAILY [walking cane As directed] zinc acetate 25 mg PO DAILY HPI Comments Details: History of Present Illness The patient is an 79 year old male with a history of coronary artery disease status post coronary artery bypass grafting, diabetes, hypertension, anemia, and chronic kidney disease, who presented for a routine follow-up. His main complaint is right upper quadrant pain that has been present for over two weeks, which has been severe enough to interfere with his sleep and movement. A workup for this pain included x-rays, an ultrasound, a CT scan in September which was unremarkable, and a HIDA scan on October 19. The HIDA scan revealed delayed biliary to bowel transit, suggestive of gallbladder dyskinesia or chronic cholecystitis, and he is scheduled for a cholecystectomy. Regarding his renal status, his recent creatinine is 1.39 mg/dL, which is noted to be close to his baseline. He is currently taking empagliflozin. The patient reported a past episode of black stools, raising concern for gastrointestinal bleeding, but his stool color has since returned to normal. Multiple blood counts in August, September, and October were stable, indicating no significant blood loss. For pain, he has been taking oxycodone, which has caused constipation, and he avoids NSAIDs like Motrin and Aleve. He also has a history of arthritis and a torn tendon that may require surgery in the future, which he plans to address after the cholecystectomy. [facility] Medical History Chest pain Type 2 diabetes mellitus Chronic renal insufficiency Iron deficiency anemia HTN (hypertension) Sciatic nerve palsy, left BPH (benign prostatic hyperplasia) Fatty liver Renal calculi Adrenal adenoma GERD (gastroesophageal reflux disease) Hypercholesterolemia Coronary artery disease Overweight (BMI 25.0-29.9) Surgical History Hx of cystoscopy Hx of hand surgery History of transurethral resection of prostate History of esophagogastroduodenoscopy (EGD) H/O colonoscopy Hx of heart artery stent S/P CABG x 4 (~08/2019) History of prostate surgery History of arthroscopy of left shoulder History of tonsillectomy Family History Father Diabetes Hypertension CVD (cardiovascular disease) Mother Diabetes Social History Household Members: Spouse Housing: Apartment Are you a primary transitions rn care coordinator to a significant other at home: No Do you presently have visiting nurse or other home services: No Alcohol intake: never Patient Tobacco Use Status: Former Tobacco user Tobacco use type: Cigarette Cigarette Packs Per Day: 1.5 Years Smoked: 25 e-Cigarette/Vaping Use: Never Used Second Hand Smoke Exposure: No service: No Current occupational status: retired Cognitive needs: Yes (cane) Hearing needs: No Vision needs: Yes (perscription glasses) Physical Exam Exam Exam: Physical Exam General: Awake. Comfortable. HENT: Neck supple. Mucosa moist. Pulmonary: Lungs aeration equal. No rales. Cardiology: Heart S1-S2 heard. No gallop. Abdomen: Soft. Non tender. Bowel sounds normal. Neurologic: No involuntary movements. No myoclonus. Extremities: No edema. No rash. Vital Signs: Last Vital Signs Pulse 85 10/25/25 09:51 BP 128/78 10/25/25 09:51 Pulse Ox 96 10/25/25 09:51 Oxygen Delivery Method Room Air 10/25/25 09:51 BMI result Body Mass Index 22.9 Results Reviewed Nephrology Results: Hgb, (14.0-18.0) 14.0 g/dl 10/19/25 WBC, (4.8-10.8) 6.3 X10*3/uL 10/19/25 Plt Count, (160-400) 217 X10*3/uL 10/19/25 Sodium, (135-145) 142 mmol/L 10/19/25 Potassium, (3.3-5.1) 4.6 mmol/L 10/19/25 Chloride, (96-108) 109 mmol/L H 10/19/25 Carbon Dioxide, (22-29) 26 mmol/L 10/19/25 BUN, (9-16) 16 mg/dL 10/19/25 Creatinine, (0.5-1.4) 1.39 mg/dL 10/19/25 Calcium, (8.4-10.2) 9.9 mg/dL 10/19/25 Urine Protein, (Neg-Trace) Negative mg/dL 10/19/25 Urine Creatinine 127.98 mg/dL 10/17/25 Renal US 11/12/23 Assessment & Plan Assessment & Plan (1) HTN (hypertension): Code(s): I10 - Essential (primary) hypertension Category: Medical (2) Renal insufficiency: Code(s): N28.9 - Disorder of kidney and ureter, unspecified Category: Medical Plan Plan 1. Chronic Kidney Disease - The patient's kidney function is stable, with a recent creatinine of 1.39 mg/dL near his baseline. - No changes will be made to his current medications. - He was advised to continue avoiding NSAIDs such as Aleve and Motrin. - A follow-up visit is scheduled in four months with repeat kidney function tests at that time. 2. CHr Cholecystitis - The patient's right upper quadrant pain is attributed to gallbladder dyskinesia or chronic cholecystitis, as suggested by a recent HIDA scan. - He will proceed with a cholecystectomy, which is expected to resolve his pain. - The patient will address his separate orthopedic issue after recovering from the gallbladder surgery. 3. Constipation - The patient's constipation is related to his use of narcotic pain medication (oxycodone). - He was counseled that narcotics can cause constipation and that stool softeners may be beneficial. - It is anticipated that he will no longer require narcotics after his upcoming surgery. Patient Instructions - Your kidney function is stable, and we are happy with the results. - Continue taking all of your medications as prescribed, with no changes at this time. - Do not take anti-inflammatory medications like Aleve, Advil, or Motrin. - Tylenol is safe for you to take for pain. - Strong pain pills like oxycodone can cause constipation, so you may need to use a stool softener. - Proceed with your scheduled gallbladder surgery, as this should help your abdominal pain. - Please schedule a follow-up appointment with our office in four months. Orders: Orders Basic Metabolic Panel 4 Months I10 - Essential (primary) hypertension, N28.9 - Disorder of kidney and ureter, unspecified Complete Blood Count no Diff 4 Months I10 - Essential (primary) hypertension, N28.9 - Disorder of kidney and ureter, unspecified Coding Level of Care Code Est Pt Level 4 (23525) Diagnoses HTN (hypertension) I10 Renal insufficiency N28.9
== END 2025-10-25 10:10 | disposition home or self-care (01) ==
LOC: HO.HKA 09:38
PROVIDERS: PCP Internal Medicine; Visit Provider Internal Medicine Hypertension Specialist
DX: I10 Essential (primary) hypertension (principal); N28.9 Disorder of kidney and ureter, unspecified
CPT/HCPCS: 99214

== ENCOUNTER → 2025-10-25 09:37 | Outpatient (BNVA) | payer OTHER, SELFPAY | PROVIDERS: PCP Internal Medicine; Visit Provider Internal Medicine Hypertension Specialist | DX: I10 Essential (primary) hypertension (principal); N28.9 Disorder of kidney and ureter, unspecified; Z87.891 Personal history of nicotine dependence; Z79.85 Long-term (current) use of injectable non-insulin antidiabetic drugs; Z79.82 Long term (current) use of aspirin | CPT/HCPCS: 99212 ==

== ENCOUNTER 2025-10-27 11:15 | Outpatient (AMB) | payer OTHER, SELFPAY ==
--- NOTE | 2025-10-27 11:30 | A.OFFVIS_ITS ---
Vital Signs 10/27/25 11:37 Height 5 ft 9 in Weight 155 lb 2 oz BMI 22.9 BP 133/67 Blood Pressure Location Lt brachial Position Sitting Pulse 63 Intake Visit Reasons: s/p lap kota Intake Note: Patient is seen in office for post op assessment post Laparoscopic cholecystectomy. 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 He initially developed sharp, stabbing RUQ pain and associated with reduced oral intake secondary to the severity. He was seen in the ED as well by his PCP multiple times since the end of September for the same pain. He was initially evaluated here on 10/12/[address], EKG was performed which was negative for acute pathology. He was sent home with diagnosis of rib pain. The RUQ pain persisted and he presented again on 10/14/[address] scan abd/pelvis was performed and he was diagnosed with sigmoid diverticulitis, constipation and sent home on Augmentin. He was then evaluated by his PCP and rib xray was performed on 10/17/25 which was negative for fracture. The pain continued and he presented again to the ED where he had an extensive work up including CBC, BMP, LFTs and CT scan abd/pelvis which were unremarkable. ABD US was then performed which was also unremarkable however he had a sonographic cuellar sign and therefore HIDA was obtained which showed delayed biliary to bowel transit with low-normal gallbladder ejection fraction raising the concern for gallbladder dyskinesia or chronic cholecystitis. Given the negative workup with HIDA results and persistence of pain with RUQ tenderness on exam, it was discussed to proceed with cholecystectomy. He underwent laparoscopic cholecystectomy with Dr. Camarena on 10/20/25. He tolerated the procedure well and was discharged the following day. He felt improved initially with resolution of the pain but reports he developed a similar pain a couple of days after again in the RUQ and on the right ribs. He reports the pain is worse at night and he is unable to sleep well. He also reports reflux like symptoms and had dark tarry stools. He reports this resolved and he is now having normal bowel movements. He had an EGD and colonoscopy in 08/[address] Pace which showed small hiatal hernia and small tubular adenoma. He takes prilosec every morning. He denies fevers, chills, nausea, vomiting, chest pain, shortness of breath, bright red blood in stools. [facility] Medical History Chest pain Type 2 diabetes mellitus Chronic renal insufficiency Iron deficiency anemia HTN (hypertension) Sciatic nerve palsy, left BPH (benign prostatic hyperplasia) Fatty liver Renal calculi Adrenal adenoma GERD (gastroesophageal reflux disease) Hypercholesterolemia Coronary artery disease Overweight (BMI 25.0-29.9) Surgical History Hx laparoscopic cholecystectomy (10/20/25) Hx of cystoscopy Hx of hand surgery History of transurethral resection of prostate History of esophagogastroduodenoscopy (EGD) H/O colonoscopy Hx of heart artery stent S/P CABG x 4 (~08/2019) History of prostate surgery History of arthroscopy of left shoulder History of tonsillectomy Family History Father Diabetes Hypertension CVD (cardiovascular disease) Mother Diabetes Social History Household Members: Spouse Housing: Apartment Are you a primary childcare teacher to a significant other at home: No Do you presently have visiting nurse or other home services: No Alcohol intake: never Patient Tobacco Use Status: Former Tobacco user Tobacco use type: Cigarette Cigarette Packs Per Day: 1.5 Years Smoked: 25 e-Cigarette/Vaping Use: Never Used Second Hand Smoke Exposure: No service: No Current occupational status: retired Cognitive needs: Yes (cane) Hearing needs: No Vision needs: Yes (perscription glasses) Review of Systems Const All systems reviewed & are unremarkable except as noted in HPI and below Physical Exam Vital Signs: Last Vital Signs Pulse 63 10/27/25 11:37 BP 133/67 10/27/25 11:37 BMI result Body Mass Index 22.9 Const General: comfortable, no acute distress and alert; No ill appearing Orientation/consciousness: patient oriented x3 Chest Other: he has tenderness of the right anterior inferior ribs Resp Effort & Inspection: normal respiratory effort, able to speak in complete sentences and not tachypneic GI Other: well approximated and well healed incision sites abd soft, moderate RUQ tenderness at incision sites Inspection: No distended Palpation (GI): no guarding and not rigid Percussion: Yes normal to percussion Skin General skin exam: no rashes or lesions noted and no jaundice Neuro General: patient oriented x3 and moves all extremities Results Reviewed Results Reviewed: Gallbladder, cholecystectomy: Mild chronic cholecystitis Assessment & Plan Assessment & Plan (1) S/P laparoscopic cholecystectomy: Code(s): Z90.49 - Acquired absence of other specified parts of digestive tract Category: Surgical Plan 79 year old male s/p laparoscopic cholecystectomy on 10/20/[address] Camarena for persistent RUQ pain with generally negative workup except for borderline low normal EF on HIDA suggestive of biliary dyskinesia or chronic cholecystitis. Pathology does show mild chronic cholecystitis however he has continued RUQ as well as rib pain similar to prior to surgery. Overall I feel as if his symptoms are unrelated to his surgical procedure, some of his RUQ pain may be attributed to incisional discomfort. He is overall well appearing with a relatively benign abd exam. Question gastritis vs PUD with new melena. He has an appointment with his PCP tomorrow. He was instructed to avoid acidic/spicy foods, trial taking prilosec twice a day for now to see if this helps his symptoms. He can return in 1 month or sooner if he develops new/worsening concerns. Patient requested refill on oxycodone which was ordered. Medications: New oxycodone Partial Fill upon patient request. 5 mg PO Q6H PRN 20 tabs 0RF pain Coding Level of Care Code Global (04399) Diagnoses S/P laparoscopic cholecystectomy Z90.49
[2025-10-27 11:37] VITALS: BP 133/67; PULSE 63; BMI 22.9
== END 2025-10-27 12:23 | disposition home or self-care (01) ==
LOC: HO.HGS 11:16
PROVIDERS: PCP Internal Medicine; Visit Provider Physician Assistant Surgical
DX: Z90.49 Acquired absence of other specified parts of digestive tract (principal)
CPT/HCPCS: 99024

== ENCOUNTER → 2025-10-27 11:15 | Outpatient (BNVA) | payer OTHER, SELFPAY | PROVIDERS: PCP Internal Medicine; Visit Provider Physician Assistant Surgical | DX: Z48.815 Encounter for surgical aftercare following surgery on the digestive system (principal); K81.1 Chronic cholecystitis; R10.11 Right upper quadrant pain; R07.89 Other chest pain; Z90.49 Acquired absence of other specified parts of digestive tract | CPT/HCPCS: 99212 ==

== ENCOUNTER 2025-10-28 02:26 | Emergency (ER) | payer OTHER, SELFPAY ==
--- NOTE | ~2025-10-28 | CT_ITS ---
CLINICAL HISTORY: RUQ pain s p lap cholecystectomy CT abdomen and pelvis with contrast Comparison: CT/REG/SR - CT ABDOMEN PELVIS WITH IV CONTRAST - 10/19/25 11:24 EST Findings: No consolidation or effusion in the included lung bases. Abdominal solid organs without acute abnormality or abnormal enhancement. Gallbladder is surgically absent. Small cyst in the posterior cortex of the right kidney. Stable nodular prominence of the bilateral adrenal glands. The stomach and bowel loops are nondistended. Extensive descending and sigmoid colon diverticulosis. There is moderate amount of stool throughout the colon. Otherwise no focal colonic lesions or pneumatosis. The appendix is normal. No free fluid, collections or free air. There no aortic dissection or aneurysm. There no abdominopelvic lymphadenopathy. The bladder is normal. There no acute skeletal abnormality in the abdomen or pelvis. Moderate multilevel degenerative changes throughout the lumbar spine. Incidentally, there is subcutaneous soft tissue gas in the upper anterolateral abdominal wall. IMPRESSION: There is subcutaneous soft tissue gas in the upper anterolateral abdominal wall, not seen on the most recent exam, Likely secondary to recent cholecystectomy. No fluid collections. No acute intraperitoneal process identified. There is extensive sigmoid colon diverticulosis. This document has been electronically signed by: Alonzo Jung MD on 10/28/2025 05:11:16
[2025-10-28 02:31] VITALS: BP 151/71; BP 170/88; PULSE 75; PULSE 78; RESP 16; TEMP 36.6; O2SAT 95; O2SAT 99; BMI 22.9
--- NOTE | 2025-10-28 02:34 | ECG_ITS ---
Test Reason : ABD PAIN Blood Pressure : */* mmHG Vent. 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
--- NOTE | 2025-10-28 02:46 | ED_ITS ---
HPI - Abdominal Pain General Chief Complaint: Abdominal Pain Stated Complaint: GB SURG LAST WK,TAR BLACK BM,RUQ PAIN Time Seen by Provider: 10/28/25 02:28 Source: patient and EMS Mode of arrival: EMS Limitations: no limitations History of Present Illness ED Provider: Dr. Nancie Hernandez HPI narrative: Patient comes to the emergency room complaining of right upper quadrant pain that started couple of days after his cholecystectomy. Patient was discharged from this hospital 7 days ago, on October 21. Yesterday, patient had an outpatient appointment yesterday. Patient did express that he had abdominal pain since the surgery. Patient states that he was told that the pain is unlikely related to the surgery. A refill of oxycodone was given to the patient. Patient reports that he has been very constipated and now he has black stool. Patient denies using Pepto-Bismol. Patient denies being on blood thinners. Patient denies nausea vomiting or diarrhea, denies fever chills, denies hematuria or dysuria flank pain Related Data Home Medications ?Medication ?Instructions ?Recorded ?Confirmed aspirin 81 mg tablet,delayed 81 mg PO DAILY 09/13/20 1 12/26/24 release cholecalciferol (vitamin D3) 25 25 mcg PO DAILY 10/25/25 mcg (1,000 unit) tablet magnesium oxide 400 mg PO DAILY 09/13/2008/11 blood sugar diagnostic #10 ea 01/08/21 10/25/25 zinc acetate 25 mg (zinc) capsule 25 mg PO DAILY 01/1210/25/25 dulaglutide 3 mg/0.5 mL 3 mg subcut RODRIGUEZ 10/19/2508/11 subcutaneous pen injector (Trulicity) empagliflozin 25 mg tablet 25 mg PO DAILY@1700 5 10/25/25 finasteride 5 mg tablet (Proscar) 5 mg PO BEDTIME pros laird 10/19/25 10/25/25 latanoprost 0.005 % eye drops 1 drp ophthalmic (eye) B EDTIME 10/19/25 10/25/25 Previous Rx's ?Medication ?Instructions ?Recorded blood sugar diagnostic #2 boxes 07/08/22 walking cane #1 ea 12/05/22 blood sugar diagnostic (OneTouch #2 ea 12/05/23 Ultra Test strips) isosorbide mononitrate 30 mg 30 mg PO DAILY #90 tabs 0 02/28/25 tablet,extended release 24 hr furosemide 20 mg tablet 20 mg PO DAILY 90 days #90 t abs 04/02/25 metoprolol tartrate 25 mg tablet 25 mg PO BID htn 90 d ays #180 tabs 04/27/25 glipizide 10 mg tablet, extended 10 mg PO DAILY #90 ta bs 06/03/25 release 24 hr lidocaine 5 % topical patch 2 patch topical DAILY #30 ea 09/30/25 docusate sodium 100 mg capsule 100 mg PO BID #30 caps 10/21/25 (Colace) lidocaine 4 % topical patch 1 patch transdermal DAILY #10 ea 10/21/25 (Lidocaine Pain Relief) oxycodone 5 mg tablet 5 mg PO Q6H PRN pain #20 tab s 10/21/25 polyethylene glycol 3350 17 17 g PO DAILY PRN constipa tion 10/21/25 gram/dose oral powder (Miralax) #119 grams psyllium husk 3.4 gram/5.4 gram 1 tbsp PO DAILY #660 g lupillo 10/21/25 oral powder (Metamucil) omeprazole 20 mg capsule,delayed 20 mg PO DAILY@0630 # 90 caps 10/25/25 release oxycodone 5 mg tablet 5 mg PO Q6H PRN pain #20 tab s 10/27/25 hydromorphone 2 mg tablet 1 mg (1/2 x 2 mg) PO Q6H PRN pain 10/28/25 (Dilaudid) #4 tabs polyethylene glycol 3350 17 17 g PO BID PRN laxative e ffect 10/28/25 gram/dose oral powder (Miralax) #238 grams Allergies Allergy/AdvReac Type Severity Reaction Status Date / Time Penicillins Allergy Mild Rash Verified 10/28/25 02:42 linagliptin (Tradjenta) AdvReac Mild diarrhea Verified 10/28/25 02:42 lisinopril AdvReac Mild Cough Verified 10/28/25 02:42 Review of Systems Review of Systems Constitutional : No Weight loss, No Fever, No Chills, No Night Sweats, No Fatigue, No Malaise ENT/Mouth : No Hearing loss, No Ear Pain, No Nasal Congestion, No Sinus Pain, No Hoarseness, No sore throat, No Rhinorrhea, No Swallowing Difficulty Eyes: No Eye Pain, No Swelling, No Redness, No Foreign Body, No Discharge, No Vision Changes Cardiovascular : No Chest Pain, No SOB, No Dyspnea on Exertion, No Orthopnea, No Edema, No Palpitations Respiratory : No Cough, No Sputum, No Wheezing, No Smoke Exposure, No Dyspnea Gastrointestinal : No Nausea, No Vomiting, No Diarrhea, complaining of constipation, complaining of right upper quadrant pain that started 2 days after his cholecystectomy Genitourinary : no irregular bleeding, No Dysuria, No Urinary Frequency, No Hematuria, No Urinary Incontinence, No Urgency, No Flank Pain, No Urinary Flow Changes, No Hesitancy Musculoskeletal : No joint pain, No Myalgias, No Joint Swelling Skin : No Skin Lesions, No rash Neuro : No Weakness, No Numbness, No Paresthesias, No Loss of Consciousness, No Dizziness, No Headache Psych : No Anxiety/Panic, No Depression, No SI/HI/AH/VH, No Social Issues, Heme/Lymph: No Bruising, No Bleeding,No Lymphadenopathy Endocrine : No Polyuria, No Polydipsia, No Temperature Intolerance [facility] Past Medical History Medical History Chest pain Type 2 diabetes mellitus Chronic renal insufficiency Iron deficiency anemia HTN (hypertension) Sciatic nerve palsy, left BPH (benign prostatic hyperplasia) Fatty liver Renal calculi Adrenal adenoma GERD (gastroesophageal reflux disease) Hypercholesterolemia Coronary artery disease Overweight (BMI 25.0-29.9) Surgical History Hx laparoscopic cholecystectomy (10/20/25) Hx of cystoscopy Hx of hand surgery History of transurethral resection of prostate History of esophagogastroduodenoscopy (EGD) H/O colonoscopy Hx of heart artery stent S/P CABG x 4 (~08/2019) History of prostate surgery History of arthroscopy of left shoulder History of tonsillectomy Family History Family History Father Diabetes Hypertension CVD (cardiovascular disease) Mother Diabetes Social History Social History Household Members: Spouse Housing: Apartment Are you a primary care management assistant to a significant other at home: No Do you presently have visiting nurse or other home services: No Alcohol intake: never Patient Tobacco Use Status: Former Tobacco user Tobacco use type: Cigarette Cigarette Packs Per Day: 1.5 Years Smoked: 25 Smoked in Last 30 Days: No e-Cigarette/Vaping Use: Never Used Second Hand Smoke Exposure: No Use of substances other than those prescribed or required for medical reasons: No Substance Use Type: Prescription Drugs Substance Use Type Other:: Oxycodone prescribed Advance Directives: Yes Advance Directives Information Provided: Yes Advance Directives on File: No Do you have a plan to hurt others: No Plan service: No Current occupational status: retired Cognitive needs: Yes (cane) Hearing needs: No Vision needs: Yes (perscription glasses) Physical Exam ED Exam Exam: Appearance: Alert. Oriented X3. No acute distress. Eyes: Pupils equal, round and reactive to light. ENT: Pharynx normal. Neck: Normal inspection. Neck supple. No lymph nodes noted. No crepitus CVS: Normal heart rate and rhythm. Pulses normal. Normal S1 and S2 Respiratory: No respiratory distress. Breath sounds normal. No Wheezing. No rales Abdomen: Soft , nondistended, tenderness to palpation in right upper quadrant, no rebound or guarding, surgical incisions are well healed, no signs of infection Skin: Skin warm and dry. Normal skin color. Normal skin turgor. Extremities: No lower extremity edema. No Lacerations. No Rash Neuro: Oriented X 3. No motor deficit. No sensory deficit. Moving all extremities. No slurred speech. CN 2 through 12 grossly intact Psych: calm, cooperative, normal affect Vital Signs: Vital Signs - 24 hr 10/28/25 02:31 10/28/25 04:26 Temperature 97.9 F 97.5 F Pulse Rate 75 68 Respiratory Rate 16 16 Blood Pressure 151/71 H 147/70 H Pulse Oximetry 95 97 Oxygen Delivery Method Room Air Room Air BMI result Body Mass Index 22.9 Course Course Course Narrative: Patient complaining of ongoing abdominal pain. Patient states that when he got discharged, he did not have abdominal pain, but 2 days later he started having pain. We will repeat labs and imaging Patient receiving IV fluids, Zofran, dose of morphine. Discussed with the patient that narcotics can cause worsening constipation, for which he will need to MiraLax to have a good laxative effect Medical Decision Making Medical Decision Making [facility] Narrative: My interpretation of labs: Normal patient's white blood cell count, normal chemistry, normal LFTs, glucose a bit elevated 195, lipase within normal limits, stool occult blood is heme negative The CT scan does not show any significant acute abnormality. There is subcutaneous soft tissue gas in the upper until the lateral abdominal wall, likely secondary to recent cholecystectomy, no fluid collection. After receiving IV fluids and a dose of morphine, patient states that the pain nearly resolved. Patient has oxycodone at home, I discussed with the patient that for couple of days we can try p.o. Dilaudid. However, patient was instructed to not mixed Dilaudid and oxycodone and it is extremely important that patient takes MiraLax to make sure that he has good bowel movements to prevent constipation and worsening of abdominal pain. Patient verbalizes understanding the instructions Differential Diagnosis Differential Diagnoses: The differential diagnosis associated with the presentation includes (Cholecystectomy complication, choledocholithiasis, SBO) Admission/Observation Consideration of admission/observation: Escalation of care including admission/observation considered (Given patient's age, recent history of surgery, pain, observation was considered) Lab Data [facility] Lab Attestation statement: I reviewed the patient's lab results. 10/28/25 02:46 10/28/25 02:47 Labs: Lab Results 10/28/25 10/28/25 10/28/25 Range/Units 02:46 02:47 03:59 WBC 6.5 (4.8-10.8) X10*3/uL RBC 4.87 (4.60-5.80) X10*6/uL Hgb 13.1 L (14.0-18.0) g/dl Hct 39.7 L (42.0-52.0) % MCV 81.5 (80.0-98.0) fL MCH 26.9 L (27.0-33.0) pg MCHC 33.0 (31.0-36.0) g/dl RDW 13.9 (11.0-16.0) % Plt Count 198 (160-400) X10*3/uL MPV 9.9 (9.4-12.4) fL Immature Gran % (Auto) 0.2 (0.0-0.4) % Neut % (Auto) 51.0 (45-73) % Lymph % (Auto) 32.5 (20-40) % [place] % (Auto) 10.2 (2-11) % Eos % (Auto) 4.9 H (0-4) % Baso % (Auto) 1.2 (0-2) % Lymph # (Auto) 2.1 (1.2-4.9) X10*3/uL [place] # (Auto) 0.7 (0.1-1.2) X10*3/uL Eos # (Auto) 0.3 (0.0-0.4) X10*3/uL Baso # (Auto) 0.1 (0.0-0.2) X10*3/uL Abs Immat Gran (auto) 0.01 (0.00-0.03) X10*3/uL Absolute Neuts (auto) 3.3 (2.0-8.3) x10*3/uL Absolute Nucleated RBC 0.000 (0.0-0.012) X10*3/uL Nucleated RBC % (auto) 0.0 (0.0-0.2) /100WBC Sodium 137 (135-145) mmol/L Potassium 3.5 D (3.3-5.1) mmol/L Chloride 106 (96-108) mmol/L Carbon Dioxide 23 (22-29) mmol/L Anion Gap 12 (12-20) BUN 18 H (9-16) mg/dL Creatinine 1.16 (0.5-1.4) mg/dL Estim Creat Clear Calc 49.6 Estimated GFR > 60 Random Glucose 195 H (60-115) mg/dL Calcium 9.1 D (8.4-10.2) mg/dL Total Bilirubin 0.4 (0.0-1.0) mg/dL Direct Bilirubin 0.1 (0.0-0.5) mg/dL AST 23 (5-37) U/L ALT 14 (0-40) U/L Alkaline Phosphatase 66 (39-117) U/L Total Protein 6.5 (6.5-8.0) g/dL Albumin 4.0 (3.5-5.0) g/dL Lipase 31 (8-78) U/L Stool Occult Blood NEGATIVE (NEGATIVE) Independent Interpretation I performed an independent interpretation of an: CT Scan Radiology Impression Discussion of test interpretation with radiology: I have reviewed the radiologist's reading. Radiologist Impression: No consolidation or effusion in the included lung bases. Abdominal solid organs without acute abnormality or abnormal enhancement. Gallbladder is surgically absent. Small cyst in the posterior cortex of the right kidney. Stable nodular prominence of the bilateral adrenal glands. The stomach and bowel loops are nondistended. Extensive descending and sigmoid colon diverticulosis. There is moderate amount of stool throughout the colon. Otherwise no focal colonic lesions or pneumatosis. The appendix is normal. No free fluid, collections or free air. There no aortic dissection or aneurysm. There no abdominopelvic lymphadenopathy. The bladder is normal. There no acute skeletal abnormality in the abdomen or pelvis. Moderate multilevel degenerative changes throughout the lumbar spine. Incidentally, there is subcutaneous soft tissue gas in the upper anterolateral abdominal wall. IMPRESSION: There is subcutaneous soft tissue gas in the upper anterolateral abdominal wall, not seen on the most recent exam, Likely secondary to recent cholecystectomy. No fluid collections. No acute intraperitoneal process identified. There is extensive sigmoid colon diverticulosis. Independent Historian Clinical information obtained from an independent historian. History obtained from or confirmed by: EMS Medications Administered Discontinued Medications Generic Name Dose Route Start Last Admin Trade Name Freq PRN Reason Stop Dose Admin Sodium Chloride 1,000 mls @ 999 mls/hr 10/28/25 02:56 10/28/25 03:26 Ns IVCONT 10/28/25 03:56 999 mls/hr .Q1H1M ONE Administration Iohexol 100 ml 10/28/25 03:52 10/28/25 03:52 Iohexol 350 Mg/Ml 100 Ml Infus..Btl IV 10/28/25 03:53 85 ml ONCE ONE Administration Morphine Sulfate 2 mg 10/28/25 02:56 10/28/25 03:27 Morphine Sulfate 4 Mg/Ml Cartridge IVPUSH 10/28/25 02:57 2 mg ONCE ONE Administration Protocol Morphine Sulfate 2 mg 10/28/25 04:01 10/28/25 04:37 Morphine Sulfate 4 Mg/Ml Cartridge IVPUSH 10/28/25 04:02 2 mg ONCE ONE Administration Protocol Ondansetron HCl 4 mg 10/28/25 02:56 10/28/25 03:27 Ondansetron Hcl 4 Mg/2 Ml Vial IVPUSH 10/28/25 02:57 4 mg ONCE ONE Administration Critical Care Time Critical Care Time Critical Care Time: Yes Total Critical Care Time: 35 Discharge Plan Discharge Clinical Impression: Abdominal pain Patient Disposition: Home, Self-Care Instructions: Abdominal Pain (ED) Additional Instructions: Please make sure that you take MiraLax to have good bowel movements. Do not mix oxycodone and Dilaudid. If possible avoid Dilaudid. You may take it up to twice a day. Make sure that you drink plenty of fluids to make sure that the medication works well. Please follow-up with your primary care physician tomorrow. If you have any worsening or new symptoms, please return to the emergency room or call 911 Prescriptions: New hydromorphone [Dilaudid] 2 mg tablet 1 mg PO Q6H PRN (Reason: pain) Qty: 4 0RF Rx Instructions: Partial Fill upon patient request. Do not mix hydromorphone with oxycodone. polyethylene glycol 3350 [Miralax] 17 gram/dose powder 17 g PO BID PRN (Reason: laxative effect) Qty: 238 0RF No Action (DME) blood sugar diagnostic Strip See Rx Instructions .ROUTE .MEDSUPPLY Qty: 10 Rx Instructions: As directed (DME) walking cane See Rx Instructions .Route .MEDSUPPLY Qty: 1 0RF Rx Instructions: As directed isosorbide mononitrate 30 mg tablet extended release 24 hr 30 mg PO DAILY Qty: 90 3RF furosemide 20 mg tablet 20 mg PO DAILY 90 Days Qty: 90 2RF lidocaine 5 % adhesive patch,medicated 2 patch topical DAILY Qty: 30 0RF Rx Instructions: leave on most painful area for up to 12 hrs omeprazole 20 mg capsule,delayed release(DR/EC) 20 mg PO DAILY@0630 Qty: 90 2RF latanoprost 0.005 % drops 1 drp ophthalmic (eye) BEDTIME finasteride [Proscar] 5 mg tablet 5 mg PO BEDTIME empagliflozin 25 mg tablet 25 mg PO DAILY@1700 Trulicity 3 mg/0.5 mL pen injector 3 mg subcut RODRIGUEZ Rx Instructions: takes on Sundays docusate sodium [Colace] 100 mg capsule 100 mg PO BID Qty: 30 0RF polyethylene glycol 3350 [Miralax] 17 gram/dose powder 17 g PO DAILY PRN (Reason: constipation) Qty: 119 0RF Metamucil 3.4 gram/5.4 gram powder 1 tbsp PO DAILY Qty: 660 0RF Rx Instructions: mix into at least 8 oz of water or juice before administering oxycodone 5 mg tablet 5 mg PO Q6H PRN (Reason: pain) Qty: 20 0RF Rx Instructions: Partial Fill upon patient request. lidocaine [Lidocaine Pain Relief] 4 % Adhesive Patch,Medicated 1 patch transdermal DAILY Qty: 10 0RF Protocol: Apply to: Apply to: Right shoulder Rx Instructions: apply for 12 hours and remove for 12 hours cholecalciferol (vitamin D3) 25 mcg (1,000 unit) tablet 25 mcg PO DAILY aspirin 81 mg tablet,delayed release (DR/EC) 81 mg PO DAILY magnesium oxide 400 mg magnesium tablet 400 mg PO DAILY (DME) blood sugar diagnostic Strip See Rx Instructions .ROUTE .MEDSUPPLY Qty: 2 3RF Rx Instructions: As directed check blood sugar 2 times a day (DME) OneTouch Ultra Test Strip See Rx Instructions .Route Qty: 2 3RF Rx Instructions: As directed check bs BID zinc acetate 25 mg (zinc) capsule 25 mg PO DAILY metoprolol tartrate 25 mg tablet 25 mg PO BID 90 Days Qty: 180 2RF glipizide 10 mg tablet extended release 24hr 10 mg PO DAILY Qty: 90 2RF oxycodone 5 mg tablet 5 mg PO Q6H PRN (Reason: pain) Qty: 20 0RF Rx Instructions: Partial Fill upon patient request. Print Language: Greek
[2025-10-28 02:52] LABS: Hematocrit 39.7 % (42.0-52.0); Hemoglobin 13.1 g/dl (14.0-18.0); Imm Gran Abs Auto 0.01 X10*3/uL (0.00-0.03); Imm Gran Pct Auto 0.2 % (0.0-0.4); Lymphocytes Absolute Auto 2.1 X10*3/uL (1.2-4.9); MANUAL DIFF FLAG NO; Mean Corpuscular HGB Conc 33.0 g/dl (31.0-36.0); Mean Corpuscular Hemoglobin 26.9 pg (27.0-33.0); Mean Corpuscular Volume 81.5 fL (80.0-98.0); NRBC Abs Auto 0.000 X10*3/uL (0.0-0.012); NRBC Pct Auto 0.0 /100WBC (0.0-0.2); Platelet Count 198 X10*3/uL (160-400); Red Blood Count 4.87 X10*6/uL (4.60-5.80); White Blood Count 6.5 X10*3/uL (4.8-10.8)
[2025-10-28 03:04] LABS: Alanine Aminotransferase 14 U/L (0-40); Albumin Level 4.0 g/dL (3.5-5.0); Alkaline Phosphatase 66 U/L (39-117); Anion Gap 12 (12-20); Aspartate Amino Transferase 23 U/L (5-37); Blood Urea Nitrogen 18 mg/dL (9-16); Calcium 9.1 mg/dL (8.4-10.2); Carbon Dioxide 23 mmol/L (22-29); Chloride 106 mmol/L (96-108); Creatinine Clr Calc Pharmacy 49.6; Estimated Glomerular Filt Rate > 60; Lipase 31 U/L (8-78); Potassium 3.5 mmol/L (3.3-5.1); Sodium 137 mmol/L (135-145); Total Protein 6.5 g/dL (6.5-8.0)
--- OUTSIDE RECORDS SUMMARY | 2025-10-28 03:11 | XMS_ITS | Patient Health Record ---
Author Organization [facility] Address [address] [place] [address] Care Team Providers Care Ghost Writer Name Role Phone Aaron Collazo MD Primary Care Provider Elbert Hanson [phone] Allergies Allergen (clinical drug ingredient) Drug/Non Drug [...] Capsule 1 tablet Orally Once a day Not-Taking/LA N metFORMIN HCl 500 MG Tablet 1 tablet wit h meals Orally three x a day Active Onglyza 5 MG Tablet 1 tablet Orally Once a day Not-Taking/LA N Metoprolol Tartrate 100 MG Tablet 1 [...] Problem Screening for malignant neoplasm of colon (216266245) Encounter for screening for malignant neoplasm of colon (Z12.11) Active confirmed Problem Screening for malignant neoplasm of rectum (251010211) Encounter for screening for malignant neoplasm of rectum (Z12.12) Active confirmed Problem Iron deficiency anemia (24357960) Iron deficiency anemia (D50.9) Active confirmed Problem Gastroesophageal reflux disease without esophagitis (559371437) Gastroesophageal reflux disease without esophagitis (K21.9) Active confirmed Problem Long-term current use of antiplatelet drug (621080412427948) Long-term use of aspirin therapy (Z79.82) Active confirmed Problem Gastritis (7672559) Gastritis (K29.70) Active c onfirmed Problem Gastroesophageal reflux disease (589195972) GERD (gastroesophageal reflux disease) (K21.9) Active confirmed Problem History of adenomatous polyp of colon (707763191) Hx of adenomatous colonic polyps (Z86.010) Active confirmed Problem Diverticulosis of colon (483930869) Diverticulosis of colon (K57.30) Active confirmed Plan Of Treatment Future Test Test Name Order Date COLONOSCOPY 03/09/2019 UPPER GI ENDOSCOPY 06/05/2022 COLONOSCOPY 06/05/2022 Insurance Providers Payer Name Payer Address Payer Phone Subscriber Number Group Number Insured Name Patient Relationship to Insured Coverage Start Date Coverage End Date MEDICARE OF [place] [address] [place] [address] [id number] MAGDY KLEIN Self - patient is the insured MEDICAID OF [facility] [address] [place] [address] [phone] [id number] MAGDY KLEIN Self - patient is the insured Medical (General) History Medical History History ICD Code 10/20/2008 colonoscopy--- ne gative except for diverticulosis and internal hemorrhoids Coronary artery disease--[address] Will--most recent was in approx 2007 NIDDM Hypertension History of kidney stones Denies VA,CVA,Lung disease,renal disease GERD--EGD with Dr. Bruce in [...]
[2025-10-28] MEDS: iohexoL 350 MG/ML 100 ML INFUS..BTL IV (03:52)
[2025-10-28 04:26] VITALS: BP 147/70; PULSE 68; RESP 16; TEMP 36.4; O2SAT 97
[2025-10-28 04:29] LABS: OBS Int Ctl Valid YES; OBS1 NEGATIVE (NEGATIVE)
[2025-10-28 06:04] VITALS: BP 148/72; PULSE 70; RESP 16; TEMP 36.3; O2SAT 96
== END 2025-10-28 06:20 | disposition home or self-care (01) ==
PROVIDERS: Emergency Provider Emergency Medicine; PCP Internal Medicine
DX: R10.11 Right upper quadrant pain (principal); Z90.49 Acquired absence of other specified parts of digestive tract; E11.9 Type 2 diabetes mellitus without complications; I10 Essential (primary) hypertension; E78.00 Pure hypercholesterolemia, unspecified; Z87.891 Personal history of nicotine dependence; Z79.899 Other long term (current) drug therapy
CPT/HCPCS: 36415; 74177; 80048; 80076; 82272; 83690; 85025; 93005; 96361; 96374; 96375; 96376; 99284; 99285; 99495; J2270; J2405; Q9967

== ENCOUNTER → 2025-10-28 02:34 | Outpatient (BNV) | payer OTHER, SELFPAY | PROVIDERS: Emergency Provider Emergency Medicine; PCP Internal Medicine; Visit Provider Internal Medicine Cardiovascular Disease | DX: I25.2 Old myocardial infarction (principal) | CPT/HCPCS: 93010 ==

== ENCOUNTER → 2025-10-28 02:44 | Outpatient (BNV) | payer OTHER, SELFPAY | PROVIDERS: Emergency Provider Emergency Medicine; PCP Internal Medicine; Visit Provider Radiology Diagnostic Radiology | DX: K91.5 Postcholecystectomy syndrome (principal); K57.30 Diverticulosis of large intestine without perforation or abscess without bleeding | CPT/HCPCS: 74177 ==

== ENCOUNTER 2025-10-28 13:12 | Outpatient (AMB) | payer OTHER, SELFPAY ==
[2025-10-28 13:19] VITALS: BP 132/62; PULSE 72; O2SAT 97; BMI 22.7
--- NOTE | 2025-10-28 13:19 | MHC.PC.OV ---
Vital Signs 10/28/25 13:19 Height 5 ft 9 in Weight 154 lb BMI 22.7 BP 132/62 Blood Pressure Location Lt brachial Position Sitting Pulse 72 Pulse Source Pulse Oximeter Pulse Oximetry (%) 97 Oxygen Delivery Method Room Air Intake Visit Reasons: [place] [facility] [place] upper quadrant pain Allergies Penicillins Allergy (Mild, Verified 10/28/25 02:42) Rash linagliptin (Tradjenta) Adverse Reaction (Mild, Verified 10/28/25 02:42) diarrhea lisinopril Adverse Reaction (Mild, Verified 10/28/25 02:42) Cough Tobacco use date assessed: 08/30/25 Dental Screening Dental Screen Date: 08/30/25 HPI TCM TCM Information Date of Discharge 10/24/25 Discharged From [employer] Interactive Contact Date (Reference documentation from this date) 10/28/25 HPI Comments History of Present Illness Details 79-year-old male presents today for transitional care management following recent hospitalization (10/19?10/21) for evaluation of biliary dyskinesia. PMH of diabetes mellitus, CKD, CAD s/p quadruple bypass in 2019, hypertension, iron deficiency anemia, HLD, and GERD. HIDA scan showed delayed emptying and reduced ejection fraction. Patient is now s/p laparoscopic cholecystectomy performed on 10/20/25. He reports that since discharge he continues to experience abdominal pain, especially triggered by eating and during defecation. Describes pain as localized primarily to the RUQ & RLQ consistent with expected postoperative incisional discomfort, but states it is still bothersome. Denies fevers, chills, nausea, vomiting, or jaundice. Appetite reduced because pain worsens with meals. Regular bowel movements but uses stool softeners; reports pain increases with straining. Currently taking oxycodone for severe pain. No issues with wound care. Denies shortness of breath, chest pain, or changes in urination. Had postoperative follow-up with General Surgery on 10/27/25. [facility] Medical History Chest pain Type 2 diabetes mellitus Chronic renal insufficiency Iron deficiency anemia HTN (hypertension) Sciatic nerve palsy, left BPH (benign prostatic hyperplasia) Fatty liver Renal calculi Adrenal adenoma GERD (gastroesophageal reflux disease) Hypercholesterolemia Coronary artery disease Overweight (BMI 25.0-29.9) Surgical History Hx laparoscopic cholecystectomy (10/20/25) Hx of cystoscopy Hx of hand surgery History of transurethral resection of prostate History of esophagogastroduodenoscopy (EGD) H/O colonoscopy Hx of heart artery stent S/P CABG x 4 (~08/2019) History of prostate surgery History of arthroscopy of left shoulder History of tonsillectomy Family History Father Diabetes Hypertension CVD (cardiovascular disease) Mother Diabetes Social History Household Members: Spouse Housing: Apartment Are you a primary healthcare technician to a significant other at home: No Do you presently have visiting nurse or other home services: No Alcohol intake: never Patient Tobacco Use Status: Former Tobacco user Tobacco use type: Cigarette Cigarette Packs Per Day: 1.5 Years Smoked: 25 e-Cigarette/Vaping Use: Never Used Second Hand Smoke Exposure: No Substance Use Type: Prescription Drugs service: No Current occupational status: retired Cognitive needs: Yes (cane) Hearing needs: No Vision needs: Yes (perscription glasses) Questionnaire Thrive Questionnaire Date Thrive assessed: 08/30/25 I am a: Patient What is your living situation today?: I choose not to answer this question Within the past 12 months, did the food you bought not last and you didn't have the money to get more?: I choose not to answer this question Within the past 12 months, did you worry whether your food would run out before you got money to buy more?: I choose not to answer this question Do you have trouble paying for medicines?: I choose not to answer this question Do you have trouble getting transportation to medical appointments?: No Do you have trouble paying your heating and electricity bill?: No Do you have trouble taking care of your child, family member or friend?: I choose not to answer this question Do you have trouble with day-to-day activities such as bathing, preparing meals, shopping, managing finances, etc.?: I choose not to answer this question Are you currently unemployed and looking for a job?: No Are you interested in more education?: No Please select the resources that you would like help with: None Currently or been in a relationship where the following occur: I choose not to answer THRIVE Score: 0 TRINH-7 AMB Questionnaire TRINH-7 Date TRINH - 7 assessed: 12/28/24 Source: Developed by Drs. Elbert Boogie, Esther Hilliard, Anurag Gupta and colleagues, with an educational elfego from [employer]. Review of Systems Const All systems reviewed & are unremarkable except as noted in HPI and below Physical exam (Primary Care) Vital Signs: Last Vital Signs Pulse 72 10/28/25 13:19 BP 132/62 10/28/25 13:19 Pulse Ox 97 10/28/25 13:19 Oxygen Delivery Method Room Air 10/28/25 13:19 BMI result Body Mass Index 22.7 Tobacco/Smoking Status: Tobacco use Status Tobacco use date assessed 08/30/25 10/28/25 13:20 Patient Tobacco Use Status Former Tobacco user 10/28/25 13:20 Tobacco use type Cigarette 10/28/25 13:20 e-Cigarette/Vaping Use Never Used 10/28/25 13:20 Thrive Assessment: Date of Thrive Assessment Date Thrive assessed 08/30/25 10/28/25 13:20 Currently or been in a relationship where the following occur: I choose not to answer Const General: no acute distress Nutritional Appearance: well nourished Orientation/consciousness: patient oriented x3 Resp Effort & Inspection: normal respiratory effort Auscultation: clear to auscultation bilaterally Cardio Heart sounds: S1 normal heart sound present and S2 normal heart sound present GI Inspection: No distended and Yes Abdominal panniculus present Palpation (GI): Soft to palpation, not firm, Tenderness to palpation present (GI) in the RLQ and periumbilically, no guarding, not rigid and No hepatosplenomegaly present Auscultation: normal bowel sounds Abdomen image:  1. Surgical incisions clean, dry, intact with no erythema, warmth, drainage, or dehiscence. Skin Other: No jaundice noted. Neuro General: patient oriented x3, gait normal and moves all extremities Coding Level of Care Code TCM Mod MDM <= 14 Days Diagnoses S/P laparoscopic cholecystectomy Z90.49 Time Spent (min) 25 Assessment & Plan Assessment & Plan (1) S/P laparoscopic cholecystectomy: Code(s): Z90.49 - Acquired absence of other specified parts of digestive tract Category: Surgical Plan: Post-operative abdominal pain ? likely normal post-cholecystectomy incisional discomfort, exacerbated by eating and bowel movements. No red flag symptoms to suggest abscess, bile leak, or infection at this time. S/p Laparoscopic Cholecystectomy (10/20/25) ? recovering appropriately; incisions healing well. Continue current postoperative pain regimen but begin tapering oxycodone as tolerated. Encouraged scheduled acetaminophen to reduce opioid reliance (if no contraindications). Continue stool softeners; consider adding polyethylene glycol daily until bowel movements soft and pain decreases. Educated patient on typical postoperative RUQ/incisional pain pattern and expected recovery timeline. Recommended small, low-fat meals to minimize post-prandial discomfort. Monitor for red flags: fever, worsening abdominal pain, jaundice, inability to tolerate PO, persistent vomiting.
== END 2025-10-28 14:32 | disposition home or self-care (01) ==
LOC: HO.HMCH 13:13
PROVIDERS: PCP Internal Medicine; Visit Provider Nurse Practitioner Family
DX: Z90.49 Acquired absence of other specified parts of digestive tract (principal)

== ENCOUNTER 2025-11-01 00:42 | Emergency (ER) | payer OTHER, SELFPAY ==
--- NOTE | ~2025-11-01 | XR_ITS ---
CLINICAL HISTORY: pain, ongoing constipation 1 view abdomen Comparison: CT/REG/SR - CT ABDOMEN PELVIS W IV CON - 10/28/25 03:50 EST Findings: No pneumoperitoneum or pneumatosis. No abnormal calcifications. Cholecystectomy clips. Moderate colonic stool burden. No acute fractures. IMPRESSION: Moderate colonic stool burden. This document has been electronically signed by: Julia Elliott MD on 11/01/2025 01:53:08
--- NOTE | 2025-11-01 00:50 | ED.GENADULT ---
HPI - General Adult General Chief complaint: Abdominal Pain Stated complaint: gallbladder surg 2 weeks ago, in pain. seen prev Time Seen by Provider: 11/01/25 00:47 Source: patient History of Present Illness ED Provider: Anita Mederos PA-C HPI narrative: 79-year-old male with a history of diabetes mellitus, CKD, CAD s/p quadruple bypass in 2019, hypertension, iron deficiency anemia, HLD, GERD, who is status post lap cholecystectomy October 20 Dr. Camarena secondary to biliary dyskinesia, with ongoing constipation, who presents with ongoing abdominal pain. Patient has been seen in the emergency department on multiple occasions since his surgery for postoperative pain, with no acute findings. He also just had a postsurgical follow up on October 27, they are suspecting new onset gastritis, he was given home care instructions for GERD/gastritis, he also had appointment with his PCP the following day. at the time of his postoperative surgical reassessment, they did refill his oxycodone, he was given 5 mg tablets #20. Related Data Home Medications ?Medication ?Instructions ?Recorded ?Confirmed aspirin 81 mg tablet,delayed 81 mg PO DAILY 09/13/20 10/28/25 release cholecalciferol (vitamin D3) 25 25 mcg PO DAILY 09/13/20 10/28/25 mcg (1,000 unit) tablet magnesium oxide 400 mg PO DAILY 09/13/20 10/28/25 blood sugar diagnostic #10 ea 01/08/21 10/28/25 zinc acetate 25 mg (zinc) capsule 25 mg PO DAILY 01/12/24 10/28/25 dulaglutide 3 mg/0.5 mL 3 mg subcut RODRIGUEZ 10/19/25 10/28/25 subcutaneous pen injector (Trulicity) empagliflozin 25 mg tablet 25 mg PO DAILY@1700 10/19/25 10/28/25 finasteride 5 mg tablet (Proscar) 5 mg PO BEDTIME prostate 10/19/25 10/28/25 latanoprost 0.005 % eye drops 1 drp ophthalmic (eye) BEDTIME 10/19/25 10/28/25 Previous Rx's ?Medication ?Instructions ?Recorded blood sugar diagnostic #2 boxes 07/08/22 walking cane #1 ea 12/05/22 isosorbide mononitrate 30 mg 30 mg PO DAILY #90 tabs 02/28/25 tablet,extended release 24 hr furosemide 20 mg tablet 20 mg PO DAILY 90 days #90 tabs 04/02/25 metoprolol tartrate 25 mg tablet 25 mg PO BID htn 90 days #180 tabs 04/27/25 glipizide 10 mg tablet, extended 10 mg PO DAILY #90 tabs 06/03/25 release 24 hr lidocaine 5 % topical patch 2 patch topical DAILY #30 ea 09/30/25 docusate sodium 100 mg capsule 100 mg PO BID #30 caps 10/21/25 (Colace) lidocaine 4 % topical patch 1 patch transdermal DAILY #10 ea 10/21/25 (Lidocaine Pain Relief) oxycodone 5 mg tablet 5 mg PO Q6H PRN pain #20 tabs 10/21/25 psyllium husk 3.4 gram/5.4 gram 1 tbsp PO DAILY #660 grams 10/21/25 oral powder (Metamucil) omeprazole 20 mg capsule,delayed 20 mg PO DAILY@0630 #90 caps 10/25/25 release oxycodone 5 mg tablet 5 mg PO Q6H PRN pain #20 tabs 10/27/25 blood sugar diagnostic (OneTouch #2 ea 10/28/25 Ultra Test strips) hydromorphone 2 mg tablet 1 mg (1/2 x 2 mg) PO Q6H PRN pain 10/28/25 (Dilaudid) #4 tabs polyethylene glycol 3350 17 17 g PO BID PRN laxative effect 10/28/25 gram/dose oral powder (Miralax) #238 grams Allergies Allergy/AdvReac Type Severity Reaction Status Date / Time Penicillins Allergy Mild Rash Verified 11/01/25 00:54 linagliptin (Tradjenta) AdvReac Mild diarrhea Verified 11/01/25 00:54 lisinopril AdvReac Mild Cough Verified 11/01/25 00:54 Review of Systems Review of Systems: Yes all other systems are reviewed and are negative Constitutional: Constitutional: Denies fatigue and Denies fever(s) Cardiovascular: Cardiovascular: Denies chest pain and Denies dyspnea Respiratory: Respiratory: Denies cough and Denies dyspnea Gastrointestinal: Gastrointestinal: Reports abdominal pain, Reports constipation, Denies nausea and Denies vomiting Endocrine: Endocrine: Denies fatigue PMFSH Past Medical History Attestation statement: The following information was validated with the patient. Medical History Chest pain Type 2 diabetes mellitus Chronic renal insufficiency Iron deficiency anemia HTN (hypertension) Sciatic nerve palsy, left BPH (benign prostatic hyperplasia) Fatty liver Renal calculi Adrenal adenoma GERD (gastroesophageal reflux disease) Hypercholesterolemia Coronary artery disease Overweight (BMI 25.0-29.9) Surgical History Hx laparoscopic cholecystectomy (10/20/25) Hx of cystoscopy Hx of hand surgery History of transurethral resection of prostate History of esophagogastroduodenoscopy (EGD) H/O colonoscopy Hx of heart artery stent S/P CABG x 4 (~08/2019) History of prostate surgery History of arthroscopy of left shoulder History of tonsillectomy Family History Family History Father Diabetes Hypertension CVD (cardiovascular disease) Mother Diabetes Social History Social History Household Members: Spouse Housing: Apartment Are you a primary healthcare recruiter to a significant other at home: No Do you presently have visiting nurse or other home services: No Alcohol intake: never Patient Tobacco Use Status: Former Tobacco user Tobacco use type: Cigarette Cigarette Packs Per Day: 1.5 Years Smoked: 25 e-Cigarette/Vaping Use: Never Used Second Hand Smoke Exposure: No Substance Use Type: Prescription Drugs Advance Directives: No Advance Directives Information Provided: Yes Do you have a plan to hurt others: No Plan service: No Current occupational status: retired Cognitive needs: Yes (cane) Hearing needs: No Vision needs: Yes (perscription glasses) Physical Exam ED Vital Signs: Vital Signs - 24 hr 11/01/25 00:52 Temperature 97.6 F Pulse Rate 85 Respiratory Rate 16 Blood Pressure 157/59 H Pulse Oximetry 97 Oxygen Delivery Method Room Air BMI result Body Mass Index 24.0 Const Other: alert Orientation/consciousness: patient oriented x3 Resp Effort & Inspection: normal respiratory effort Cardio Other: normal peripheral perfusion GI Other: soft, generalized tenderness to palpation some degree distention no guarding Skin Other: warm dry no rash Neuro General: patient oriented x3, gait normal, no focal motor deficits and CN's II-XI intact bilaterally Psych Other: cooperative Medications Administered Discontinued Medications Generic Name Dose Route Start Last Admin Trade Name Maury PRN Reason Stop Dose Admin Bisacodyl 10 mg 11/01/25 01:37 11/01/25 01:41 Bisacodyl [address] HALE 11/01/25 01:38 10 mg ONCE ONE Administration Sodium Chloride 500 mls @ 500 mls/hr 11/01/25 00:47 11/01/25 01:41 Ns IV 11/01/25 01:46 500 mls/hr .Q1H ONE Administration Magnesium Hydroxide 30 ml 11/01/25 01:38 11/01/25 01:43 Milk Of Magnesia 30 Ml Oral.Susp PO 11/01/25 01:39 Not Given ONCE ONE Medical Decision Making Medical Decision Making MDM Narrative: 79-year-old male with a history of diabetes mellitus, CKD, CAD s/p quadruple bypass in 2018, hypertension, iron deficiency anemia, HLD, GERD, who is status post lap cholecystectomy October [address] Camarena secondary to biliary dyskinesia, with ongoing constipation, who presents with ongoing abdominal pain. Patient has been seen in the emergency department on multiple occasions since his surgery for postoperative pain, with no acute findings. He also just had a postsurgical follow up on October 27, they are suspecting new onset gastritis, he was given home care instructions for GERD/gastritis, he also had appointment with his PCP the following day. at the time of his postoperative surgical reassessment, they did refill his oxycodone, he was given 5 mg tablets #20. problem: Diabetes, recent age, ongoing constipation History: Per patient I have considered the following differential diagnoses: Constipation, bowel obstruction, postsurgical complication Plan: The patient has been seen numerous times in the emergency room, he just had an appointment with the his surgeon as well days ago, at his last ED visit on the , he was noted to be constipated. He is likely still constipated, he is not having obstructive symptoms, adding a KUB in addition to his screening labs. He does not require advanced imaging. He is insistent that he can not be constipated. We will give 500 mL fluid bolus and Dulcolax and milk of magnesia I have independently reviewed the following tests: Labs: No leukocytosis, not anemic, no electrolyte abnormality, LFTs at baseline KUB: view abdomen Comparison: CT/REG/SR - CT ABDOMEN PELVIS W IV CON - 10/28/25 03:50 EST Findings: No pneumoperitoneum or pneumatosis. No abnormal calcifications. Cholecystectomy clips. Moderate colonic stool burden. No acute fractures. IMPRESSION: Moderate colonic stool burden. Differential Diagnosis Differential Diagnoses: The differential diagnosis associated with the presentation includes see [facility] Admission/Observation Consideration of admission/observation: Escalation of care including admission/observation considered not applicable Lab Data [facility] Lab Attestation statement: I reviewed the patient's lab results. 11/01/25 01:13 11/01/25 01:13 Labs: Lab Results 11/01/25 Range/Units 01:13 WBC 8.2 (4.8-10.8) X10*3/uL RBC 5.19 (4.60-5.80) X10*6/uL Hgb 13.8 L (14.0-18.0) g/dl Hct 42.1 (42.0-52.0) % MCV 81.1 (80.0-98.0) fL MCH 26.6 L (27.0-33.0) pg MCHC 32.8 (31.0-36.0) g/dl RDW 13.8 (11.0-16.0) % Plt Count 207 (160-400) X10*3/uL MPV 10.1 (9.4-12.4) fL Immature Gran % (Auto) 0.2 (0.0-0.4) % Neut % (Auto) 53.5 (45-73) % Lymph % (Auto) 31.5 (20-40) % Brown % (Auto) 9.2 (2-11) % Eos % (Auto) 4.3 H (0-4) % Baso % (Auto) 1.3 (0-2) % Lymph # (Auto) 2.6 (1.2-4.9) X10*3/uL Brown # (Auto) 0.8 (0.1-1.2) X10*3/uL Eos # (Auto) 0.4 (0.0-0.4) X10*3/uL Baso # (Auto) 0.1 (0.0-0.2) X10*3/uL Abs Immat Gran (auto) 0.02 (0.00-0.03) X10*3/uL Absolute Neuts (auto) 4.4 (2.0-8.3) x10*3/uL Absolute Nucleated RBC 0.000 (0.0-0.012) X10*3/uL Nucleated RBC % (auto) 0.0 (0.0-0.2) /100WBC Sodium 137 (135-145) mmol/L Potassium 4.5 D (3.3-5.1) mmol/L Chloride 105 (96-108) mmol/L Carbon Dioxide 22 (22-29) mmol/L Anion Gap 15 (12-20) BUN 17 H (9-16) mg/dL Creatinine 1.36 (0.5-1.4) mg/dL Estim Creat Clear Calc 39.8 Estimated GFR 50 Random Glucose 121 H (60-115) mg/dL Calcium 9.1 (8.4-10.2) mg/dL Magnesium 2.2 (1.6-2.6) mg/dL Total Bilirubin 0.5 (0.0-1.0) mg/dL AST 48 H (5-37) U/L ALT 16 (0-40) U/L Alkaline Phosphatase 71 (39-117) U/L Total Protein 7.2 (6.5-8.0) g/dL Albumin 4.1 (3.5-5.0) g/dL Lipase 38 (8-78) U/L Radiology Impression Discussion of test interpretation with radiology: I have reviewed the radiologist's reading. Discharge Plan Discharge Clinical Impression: Constipation Qualifiers: Constipation type: drug induced constipation Qualified Code(s): K59.03 - Drug induced constipation Patient Disposition: Home, Self-Care Instructions: Constipation (ED) Additional Instructions: all of your screening labs were normal, the x-ray reveals that you are still considerably constipated. Tomorrow morning you need to take 4 capsules of Colace. Then you need to drink MiraLax every hour until you begin having multiple large volume bowel movements, until you are defecating clear liquid. You were essentially performing a bowel prep. The oxycodone you are taking for your pain is causing the constipation and pain. You do not need this medicine. You should really consider discontinuing the use of the oxycodone to prevent the onset of new constipation. Continue to follow up with your surgeon and your primary care as needed. Prescriptions: No Action (DME) blood sugar diagnostic Strip See Rx Instructions .ROUTE .MEDSUPPLY Qty: 10 Rx Instructions: As directed (DME) walking cane See Rx Instructions .Route .MEDSUPPLY Qty: 1 0RF Rx Instructions: As directed isosorbide mononitrate 30 mg tablet extended release 24 hr 30 mg PO DAILY Qty: 90 3RF furosemide 20 mg tablet 20 mg PO DAILY 90 Days Qty: 90 2RF lidocaine 5 % adhesive patch,medicated 2 patch topical DAILY Qty: 30 0RF Rx Instructions: leave on most painful area for up to 12 hrs omeprazole 20 mg capsule,delayed release(DR/EC) 20 mg PO DAILY@0630 Qty: 90 2RF latanoprost 0.005 % drops 1 drp ophthalmic (eye) BEDTIME finasteride [Proscar] 5 mg tablet 5 mg PO BEDTIME empagliflozin 25 mg tablet 25 mg PO DAILY@1700 Trulicity 3 mg/0.5 mL pen injector 3 mg subcut RODRIGUEZ Rx Instructions: takes on Sundays docusate sodium [Colace] 100 mg capsule 100 mg PO BID Qty: 30 0RF Metamucil 3.4 gram/5.4 gram powder 1 tbsp PO DAILY Qty: 660 0RF Rx Instructions: mix into at least 8 oz of water or juice before administering oxycodone 5 mg tablet 5 mg PO Q6H PRN (Reason: pain) Qty: 20 0RF Rx Instructions: Partial Fill upon patient request. lidocaine [Lidocaine Pain Relief] 4 % Adhesive Patch,Medicated 1 patch transdermal DAILY Qty: 10 0RF Protocol: Apply to: Apply to: Right shoulder Rx Instructions: apply for 12 hours and remove for 12 hours hydromorphone [Dilaudid] 2 mg tablet 1 mg PO Q6H PRN (Reason: pain) Qty: 4 0RF Rx Instructions: Partial Fill upon patient request. Do not mix hydromorphone with oxycodone. polyethylene glycol 3350 [Miralax] 17 gram/dose powder 17 g PO BID PRN (Reason: laxative effect) Qty: 238 0RF cholecalciferol (vitamin D3) 25 mcg (1,000 unit) tablet 25 mcg PO DAILY aspirin 81 mg tablet,delayed release (DR/EC) 81 mg PO DAILY magnesium oxide 400 mg magnesium tablet 400 mg PO DAILY (DME) blood sugar diagnostic Strip See Rx Instructions .ROUTE .MEDSUPPLY Qty: 2 3RF Rx Instructions: As directed check blood sugar 2 times a day zinc acetate 25 mg (zinc) capsule 25 mg PO DAILY metoprolol tartrate 25 mg tablet 25 mg PO BID 90 Days Qty: 180 2RF glipizide 10 mg tablet extended release 24hr 10 mg PO DAILY Qty: 90 2RF (DME) OneTouch Ultra Test Strip See Rx Instructions .Route Qty: 2 3RF Rx Instructions: As directed check bs BID oxycodone 5 mg tablet 5 mg PO Q6H PRN (Reason: pain) Qty: 20 0RF Rx Instructions: Partial Fill upon patient request. Print Language: Tamazight
[2025-11-01 00:52] VITALS: BP 157/59; PULSE 85; RESP 16; TEMP 36.4; O2SAT 97; BMI 24.0
[2025-11-01 01:17] LABS: MANUAL DIFF FLAG NO
[2025-11-01 01:18] LABS: Hematocrit 42.1 % (42.0-52.0); Hemoglobin 13.8 g/dl (14.0-18.0); Imm Gran Abs Auto 0.02 X10*3/uL (0.00-0.03); Imm Gran Pct Auto 0.2 % (0.0-0.4); Lymphocytes Absolute Auto 2.6 X10*3/uL (1.2-4.9); Mean Corpuscular HGB Conc 32.8 g/dl (31.0-36.0); Mean Corpuscular Hemoglobin 26.6 pg (27.0-33.0); Mean Corpuscular Volume 81.1 fL (80.0-98.0); NRBC Abs Auto 0.000 X10*3/uL (0.0-0.012); NRBC Pct Auto 0.0 /100WBC (0.0-0.2); Platelet Count 207 X10*3/uL (160-400); Red Blood Count 5.19 X10*6/uL (4.60-5.80); White Blood Count 8.2 X10*3/uL (4.8-10.8)
[2025-11-01 01:37] LABS: Alanine Aminotransferase 16 U/L (0-40); Albumin Level 4.1 g/dL (3.5-5.0); Alkaline Phosphatase 71 U/L (39-117); Anion Gap 15 (12-20); Aspartate Amino Transferase 48 U/L (5-37); Blood Urea Nitrogen 17 mg/dL (9-16); Calcium 9.1 mg/dL (8.4-10.2); Carbon Dioxide 22 mmol/L (22-29); Chloride 105 mmol/L (96-108); Creatinine Clr Calc Pharmacy 39.8; Estimated Glomerular Filt Rate 50; Lipase 38 U/L (8-78); Magnesium 2.2 mg/dL (1.6-2.6); Potassium 4.5 mmol/L (3.3-5.1); Sodium 137 mmol/L (135-145); Total Protein 7.2 g/dL (6.5-8.0)
--- OUTSIDE RECORDS SUMMARY | 2025-11-01 01:59 | XMS_ITS | Patient Health Record ---
Author Organization [facility] Address [address] [place] [address] Care Team Providers Care Sifting Operator Name Role Phone Aaron Collazo MD Primary Care Provider Elbert Hanson [phone] Allergies Allergen (clinical drug ingredient) Drug/Non Drug [...] Capsule 1 tablet Orally Once a day Not-Taking/IN N metFORMIN HCl 500 MG Tablet 1 tablet wit h meals Orally three x a day Active Onglyza 5 MG Tablet 1 tablet Orally Once a day Not-Taking/IN N Metoprolol Tartrate 100 MG Tablet 1 [...] Problem Screening for malignant neoplasm of colon (403811457) Encounter for screening for malignant neoplasm of colon (Z12.11) Active confirmed Problem Screening for malignant neoplasm of rectum (136827428) Encounter for screening for malignant neoplasm of rectum (Z12.12) Active confirmed Problem Iron deficiency anemia (44684405) Iron deficiency anemia (D50.9) Active confirmed Problem Gastroesophageal reflux disease without esophagitis (760549399) Gastroesophageal reflux disease without esophagitis (K21.9) Active confirmed Problem Long-term current use of antiplatelet drug (805345696841344) Long-term use of aspirin therapy (Z79.82) Active confirmed Problem Gastritis (0417556) Gastritis (K29.70) Active c onfirmed Problem Gastroesophageal reflux disease (963575406) GERD (gastroesophageal reflux disease) (K21.9) Active confirmed Problem History of adenomatous polyp of colon (900554399) Hx of adenomatous colonic polyps (Z86.010) Active confirmed Problem Diverticulosis of colon (286130310) Diverticulosis of colon (K57.30) Active confirmed Plan Of Treatment Future Test Test Name Order Date COLONOSCOPY 03/09/2019 UPPER GI ENDOSCOPY 06/05/2022 COLONOSCOPY 06/05/2022 Insurance Providers Payer Name Payer Address Payer Phone Subscriber Number Group Number Insured Name Patient Relationship to Insured Coverage Start Date Coverage End Date MEDICARE OF [place] [address] [place] [address] [phone] [id number] MAGDY KLEIN Self - patient is the insured MEDICAID OF [facility] [address] [place] [phone] [id number] MAGDY KLEIN Self - patient is the [...]
[2025-11-01 02:41] VITALS: BP 142/67; PULSE 73; RESP 18; TEMP 36.4; O2SAT 96
== END 2025-11-01 02:44 | disposition home or self-care (01) ==
PROVIDERS: Physician Assistant Medical; Emergency Provider Emergency Medicine; PCP Internal Medicine
DX: K59.03 Drug induced constipation (principal); I12.9 Hypertensive chronic kidney disease with stage 1 through stage 4 chronic kidney disease, or unspecified chronic kidney disease; E11.22 Type 2 diabetes mellitus with diabetic chronic kidney disease; N18.9 Chronic kidney disease, unspecified; I25.10 Atherosclerotic heart disease of native coronary artery without angina pectoris; E78.5 Hyperlipidemia, unspecified; Z87.891 Personal history of nicotine dependence
CPT/HCPCS: 36415; 74018; 80053; 83690; 83735; 85025; 96360; 99284

== ENCOUNTER → 2025-11-01 00:56 | Outpatient (BNV) | payer OTHER, SELFPAY | PROVIDERS: Emergency Provider Emergency Medicine; PCP Internal Medicine; Visit Provider Student in an Organized Health Care Education/Training Program | DX: K59.00 Constipation, unspecified (principal) | CPT/HCPCS: 74018 ==

== ENCOUNTER 2025-11-02 09:40 | Outpatient (AMB) | payer OTHER, SELFPAY ==
--- NOTE | 2025-11-02 10:40 | A.OFFPC_ITS ---
Vital Signs 11/02/25 10:41 Height 5 ft 7 in Weight 152 lb 8 oz BMI 23.9 BP 118/60 Blood Pressure Location Lt brachial Position Sitting Respiration 18 Pulse 88 Pulse Source Pulse Oximeter Temp 97.6 F Temp Source Temporal Artery Scan Pulse Oximetry (%) 98 Oxygen Delivery Method Room Air Intake Visit Reasons: RT rib pain It Security Manager Required: No Accompanied by: Self / Same As Patient Allergies Penicillins Allergy (Mild, Verified 11/02/25 10:40) Rash linagliptin (Tradjenta) Adverse Reaction (Mild, Verified 11/02/25 10:40) diarrhea lisinopril Adverse Reaction (Mild, Verified 11/02/25 10:40) Cough Medication List - Last Reconciled 11/02/25 by Aaron Collazo MD aspirin 81 mg PO DAILY blood sugar diagnostic As directed blood sugar diagnostic As directed check blood sugar 2 times a day blood sugar diagnostic ([employer] Ultra Test strips) As directed check bs BID cholecalciferol (vitamin D3) 25 mcg PO DAILY docusate sodium (Colace) 100 mg PO BID dulaglutide (Trulicity) 3 mg subcut RODRIGUEZ empagliflozin 25 mg PO DAILY@1700 finasteride (Proscar) 5 mg PO BEDTIME furosemide 20 mg PO DAILY 90 days glipizide ER 10 mg PO DAILY isosorbide mononitrate ER 30 mg PO DAILY latanoprost 0.005% 1 drp ophthalmic (eye) BEDTIME lidocaine 4% (Lidocaine Pain Relief) 1 patch See Protocol transdermal DAILY magnesium oxide 400 mg PO DAILY metoprolol tartrate 25 mg PO BID 90 days omeprazole 20 mg PO DAILY@0630 polyethylene glycol 3350 (Miralax) 17 grams PO BID PRN psyllium husk (Metamucil) 1 tbsp PO DAILY rosuvastatin 40 mg PO DAILY [walking cane As directed] zinc acetate 25 mg PO DAILY Tobacco use date assessed: 08/30/25 Fall risk assessment: No Falls in past year Last assessed Fall Risk: 11/02/25 Dental Screening Dental Screen Date: 08/30/25 HPI RT rib pain HPI Details PAtient continues to have pain on the R rib area even with the lap kota. PAient still complains of having this pain , and also constipation- stopped narcotic, no constipation, has nausea still HPI Comments History of Present Illness Details History of Present Illness The patient is an 79-year-old male presenting for follow-up of multiple chronic medical problems. His past medical history is significant for hypercholesterolem ia, GERD, BPH, coronary artery disease, hypertension, diabetes mellitus, generalized anxiety disorder, peripheral vascular disease, cervical radiculopathy, and chronic kidney disease. He had recent ER visits for abdominal pain on October 14 and October 22, and was diagnosed with biliary dyskinesia. He underwent a laparoscopic cholecystectomy on October 20. Post-operatively, he continues to experience pain in the same location, which he localizes to his ribs. The patient feels his condition is the same or worse since the surgery, and the pain is significant enough to prevent him from sleeping. The patient also reports constipation, which prompted an ER visit on November 01 where x-rays were negative and he was given MiraLAX. He notes his bowel movements are not as they were previously and he had a pasty bowel movement this morning after taking several laxatives. He was prescribed morphine for pain, but stopped taking it as he noted it caused constipation. His chronic kidney disease and hypertension were noted to be stable during a renal follow-up on October 25, with a creatinine of 1.39. He was advised to avoid NSAIDs. Health Maintenance - Counseled on a low-fat diet following cholecystectomy to prevent heartburn and diarrhea. - Advised to avoid NSAIDs due to chronic kidney disease. - Discussed management of constipation, including adequate water intake, dietary fiber, and regular physical activity. Social History - Substance Use: The patient quit smokin g 29 years ago and stopped drinking alcohol 3 years ago. - Nutrition: He has been advised to foll ow a low-fat diet. - Functional Status: Reports poor sleep and decreased appetite due to persistent pain. Results - Labs: Creatinine was 1.39 on October 25. - Imaging: Chest X-rays performed at the ER were negative for fracture. - Imaging: The patient has had multiple CT scans previously. [facility] Medical History (Updated 11/02/25 @ 11:37 by Aaron Collazo MD) Chest pain Type 2 diabetes mellitus Chronic renal insufficiency Iron deficiency anemia HTN (hypertension) Sciatic nerve palsy, left BPH (benign prostatic hyperplasia) Fatty liver Renal calculi Adrenal adenoma GERD (gastroesophageal reflux disease) Hypercholesterolemia Coronary artery disease Overweight (BMI 25.0-29.9) Surgical History (Updated 11/02/25 @ 11:26 by Aaron Collazo MD) Hx laparoscopic cholecystectomy (10/20/25) Hx of cystoscopy Hx of hand surgery History of transurethral resection of prostate History of esophagogastroduodenoscopy (EGD) H/O colonoscopy Hx of heart artery stent S/P CABG x 4 (~08/2019) History of prostate surgery History of arthroscopy of left shoulder History of tonsillectomy Family History Father Diabetes Hypertension CVD (cardiovascular disease) Mother Diabetes Social History Household Members: Spouse Housing: Apartment Are you a primary care management coordinator to a significant other at home: No Do you presently have visiting nurse or other home services: No Alcohol intake: never Patient Tobacco Use Status: Former Tobacco user Tobacco use type: Cigarette Cigarette Packs Per Day: 1.5 Years Smoked: 25 Packs Per Year: 38 e-Cigarette/Vaping Use: Never Used Second Hand Smoke Exposure: No Substance Use Type: Prescription Drugs service: No Current occupational status: retired Cognitive needs: Yes (cane) Hearing needs: No Vision needs: Yes (perscription glasses) Questionnaire Thrive Questionnaire Date Thrive assessed: 08/30/25 I am a: Patient What is your living situation today?: I choose not to answer this question Within the past 12 months, did the food you bought not last and you didn't have the money to get more?: I choose not to answer this question Within the past 12 months, did you worry whether your food would run out before you got money to buy more?: I choose not to answer this question Do you have trouble paying for medicines?: I choose not to answer this question Do you have trouble getting transportation to medical appointments?: No Do you have trouble paying your heating and electricity bill?: No Do you have trouble taking care of your child, family member or friend?: I ch oose not to answer this question Do you have trouble with day-to-day activities such as bathing, preparing meals, shopping, managing finances, etc.?: I choose not to answer this question Are you currently unemployed and looking for a job?: No Are you interested in more education?: No Please select the resources that you would like help with: None Currently or been in a relationship where the following occur: I choose not to answer THRIVE Score: 0 TRINH-7 AMB Questionnaire TRINH-7 Date TRINH - 7 assessed: 12/28/24 Not being able to stop or control worryin = Nearly every day Worrying too much about different things: 3 = Nearly every day Trouble relaxin = Several days Being so restless that it is hard to sit still: 2 = More than half the days Becoming easily annoyed or irritable: 0 = Not at all Feeling afraid as if something awful might happen: 0 = Not at all Source: Developed by Drs. Elbert Boogie, Esther Hilliard, Anurag Gupta and colleagues, with an educational elfego from [employer]. Review of Systems Narrative Review of Systems - Constitutional: Denies chills. - Gastrointestinal: Denies nausea or vomiting. - Gastrointestinal: Reports constipation, although he had a pasty bowel movement this morning. - Gastrointestinal: Reports acid reflux. - Musculoskeletal: Reports persistent pain localized to the ribs. - Respiratory: Denies cough and shortness of breath. Physical exam (Primary Care) Vital Signs: Last Vital Signs Temp 97.6 F 11/02/25 10:41 Pulse 88 11/02/25 10:41 Resp 18 11/02/25 10:41 BP 118/60 11/02/25 10:41 Pulse Ox 98 11/02/25 10:41 Oxygen Delivery Method Room Air 11/02/25 10:41 BMI result Body Mass Index 23.9 Tobacco/Smoking Status: Tobacco use Status Tobacco use date assessed 08/30/25 11/02/25 10:43 Patient Tobacco Use Status Former Tobacco user 11/02/25 10:43 Tobacco use type Cigarette 11/02/25 10:43 e-Cigarette/Vaping Use Never Used 11/02/25 10:43 Thrive Assessment: Date of Thrive Assessment Date Thrive assessed 08/30/25 11/02/25 10:43 Currently or been in a relationship where the following occur: I choose not to answer Narrative Physical Exam Const General: alert; No acute distress Eyes Conjunctivae: conjunctivae normal Resp Auscultation: clear to auscultation bilaterally Cardio Rate: regular rate Rhythm: regular rhythm GI Inspection: Yes normal to inspection Extrem General: Yes normal to inspection and No edema Coding Level of Care Code Est Pt Level 4 (23848) Diagnoses Hx laparoscopic cholecystectomy Z90.49 Type 2 diabetes mellitus with hyperglycemia, without long-term current use of insulin E11.65 Diabetes mellitus extermination inspector insulin use: without usp use Coronary artery disease involving three affiliated coronary artery of three affiliated heart without angina pectoris I25.10 Associated angina: without angina Coronary Disease-Associated Artery/Lesion type: three affiliated artery [place] vs. transplanted heart: three affiliated heart HTN (hypertension) I10 Hypercholesterolemia E78.00 Abdominal pain, RUQ R10.11 Assessment & Plan Assessment & Plan (1) Hx laparoscopic cholecystectomy: Onset Date: 10/20/25 Comment: Jax Camarena MD Code(s): Z90.49 - Acquired absence of other specified parts of digestive tract Category: Surgical Plan: Low-fat diet, patient is frustrated as the cholecystectomy did not help with the pain. Patient continues to persist with the pain and is insistent about wanting an MRI. (2) Type 2 diabetes mellitus with hyperglycemia: Code(s): E11.65 - Type 2 diabetes mellitus with hyperglycemia Category: Medical Qualifiers: Diabetes mellitus usp insulin use: without extermination inspector use Qualified Code(s): E11.65 - Type 2 diabetes mellitus with hyperglycemia Plan: Decrease the amount of carbohydrate intake, pasta, bread, rice and potatoes are all sugar and that is aside from all the sweet stuff, remember that fruits are good but they are Sweet also. (3) Coronary artery disease: Comment: CABG August [address] Rhodes-follows w/[facility] Code(s): I25.10 - Atherosclerotic heart disease of three affiliated coronary artery without angina pectoris Category: Medical Qualifiers: Associated angina: without angina Coronary Disease-Associated Artery/Lesion type: three affiliated artery [place] vs. transplanted heart: three affiliated heart Qualified Code(s): I25.10 - Atherosclerotic heart disease of three affiliated coronary artery without angina pectoris Plan: Control the cholesterol, weight, blood pressure, diabetes (4) HTN (hypertension): Code(s): I10 - Essential (primary) hypertension Category: Medical Plan: Continue with blood pressure medication. Decrease salt intake and exercise (5) Hypercholesterolemia: Code(s): E78.00 - Pure hypercholesterolemia, unspecified Category: Medical Plan: Avoid fried foods, chicken skin, eggs, butter margarine, pastries and meat. Be it pork or beef they have a lot of cholesterol (6) Abdominal pain, RUQ: Code(s): R10.11 - Right upper quadrant pain Category: Medical Plan: With the pain patient was advised to hold off Trulicity, this may help the constipation problem also. Patient is insistent about wanting to have the MRI and so request has been done but did let him know that this will usually not be covered. Will do an ultrasound of the abdomen again. Plan Plan Patient was informed and verbally consented to the use of an ambient scribe for clinic note documentation during this visit. 1. Persistent Rib Pain, Status Post-Cholecystectomy The patient continues to experience significant pain in the rib area, which is unimproved following his cholecystectomy and is severely affecting his quality of life and sleep. Previous x-rays were negative for fractures. An MRI will be ordered to further evaluate the source of pain, with the patient being advised that insurance authorization may be an issue. An ultrasound of the liver will also be ordered as a faster alternative for imaging. 2. Constipation The patient's constipation is likely multifactorial, exacerbated by his post- operative state and potentially by Trulicity. He has appropriately discontinued morphine, which is known to cause constipation. A prescription for MiraLAX will be sent. He is advised to continue his current regimen of psyllium, MiraLAX, and docusate sodium without adding other medications, and to ensure adequate intake of water and dietary fiber. He will hold Trulicity for one week to assess for improvement. 3. Diabetes Mellitus Given that Trulicity can slow gut motility and contribute to constipation, the patient has been advised to hold his Trulicity for one week to see if his symptoms improve. 4. Gastroesophageal Reflux Disease (Gerd) The patient reports new acid reflux symptoms post-cholecystectomy. He was counseled that this can occur after gallbladder removal and was advised to adhere to a low-fat diet to help manage symptoms. Discussion Notes I discussed with the patient his persistent rib pain following his cholecystectomy. I acknowledged his distress and frustration with the lack of diagnosis despite multiple visits. I explained that while previous x-rays were negative, I would order an MRI as he requested to further investigate the cause, but I cautioned that his insurance may not approve it. As a more immediate o ption, I also placed an order for an abdominal ultrasound. We also discussed his constipation. I explained that the Trulicity he takes for diabetes can be a contributing factor, and we agreed that he would hold the medication for one week to see if there is any improvement. I will send a prescription for MiraLAX and advised him to continue his current laxative regimen without adding new medications, while also emphasizing a low-fat diet, adequate fluid intake, and fiber. Patient Instructions - For your persistent pain, we have ordered an MRI and an ultrasound. - You will be contacted for scheduling. - For your constipation, stop taking your Trulicity injection for one week to see if your symptoms improve. - We are sending a prescription for MiraLAX. - Continue taking your current laxatives (psyllium/Metamucil, docusate sodium, and MiraLAX), but do not add any new ones. - Make sure to drink plenty of water and eat foods high in fiber, like green leafy vegetables. - Eat a low-fat diet to help with the acid reflux you are experiencing after your gallbladder surgery. - Do not take NSAID pain relievers like ibuprofen (Advil, Motrin) or naproxen (Aleve). Orders: Orders US abdomen complete Today R10.11 - Right upper quadrant pain, R79.89 - Other specified abnormal findings of blood chemistry MR abdomen wo/w con Today R10.11 - Right upper quadrant pain Medications: Refilled polyethylene glycol 3350 (Miralax) 17 grams PO BID PRN 238 grams 0RF laxative effect polyethylene glycol 3350 (Miralax) 17 grams PO BID PRN 238 grams 0RF laxative effect R10.11 - Right upper quadrant pain
[2025-11-02 10:41] VITALS: BP 118/60; PULSE 88; RESP 18; TEMP 36.4; O2SAT 98; BMI 23.9
--- OUTSIDE RECORDS SUMMARY | 2025-11-02 11:16 | XMS_ITS | Patient Health Record ---
Author Organization [facility] Address [address] [place] [address] Care Team Providers Care Underwear Trimmer Name Role Phone Aaron Collazo MD Primary Care Provider Elbert Hanson [phone] Allergies Allergen (clinical drug ingredient) Drug/Non Drug [...] Problem Screening for malignant neoplasm of colon (161969097) Encounter for screening for malignant neoplasm of colon (Z12.11) Active confirmed Problem Screening for malignant neoplasm of rectum (946623194) Encounter for screening for malignant neoplasm of rectum (Z12.12) Active confirmed Problem Iron deficiency anemia (11182976) Iron deficiency anemia (D50.9) Active confirmed Problem Gastroesophageal reflux disease without esophagitis (243195284) Gastroesophageal reflux disease without esophagitis (K21.9) Active confirmed Problem Long-term current use of antiplatelet drug (338350732961194) Long-term use of aspirin therapy (Z79.82) Active confirmed Problem Gastritis (5750383) Gastritis (K29.70) Active c onfirmed Problem Gastroesophageal reflux disease (320506572) GERD (gastroesophageal reflux disease) (K21.9) Active confirmed Problem History of adenomatous polyp of colon (761666942) Hx of adenomatous colonic polyps (Z86.010) Active confirmed Problem Diverticulosis of colon (225889540) Diverticulosis of colon (K57.30) Active confirmed Plan Of Treatment Future Test Test Name Order Date COLONOSCOPY 03/09/2019 UPPER GI ENDOSCOPY 06/05/2022 COLONOSCOPY 06/05/2022 Insurance Providers Payer Name Payer Address Payer Phone Subscriber Number Group Number Insured Name Patient Relationship to Insured Coverage Start Date Coverage End Date MEDICARE OF [place] [address] [place] [address] [id number] MAGDY KLEIN Self - patient is the insured MEDICAID OF [facility] [address] [place] [address] [id number] MAGDY KLEIN Self - patient is the [...]
== END 2025-11-02 11:49 | disposition home or self-care (01) ==
LOC: HO.HMCH 09:41
PROVIDERS: PCP Internal Medicine; Visit Provider Internal Medicine
DX: Z90.49 Acquired absence of other specified parts of digestive tract (principal); E11.65 Type 2 diabetes mellitus with hyperglycemia; I25.10 Atherosclerotic heart disease of native coronary artery without angina pectoris; I10 Essential (primary) hypertension; E78.00 Pure hypercholesterolemia, unspecified; R10.11 Right upper quadrant pain

== ENCOUNTER → 2025-11-02 09:40 | Outpatient (BNVA) | payer OTHER, SELFPAY | PROVIDERS: PCP Internal Medicine; Visit Provider Internal Medicine | DX: R10.11 Right upper quadrant pain (principal); Z90.49 Acquired absence of other specified parts of digestive tract; E11.65 Type 2 diabetes mellitus with hyperglycemia; K21.9 Gastro-esophageal reflux disease without esophagitis; K59.00 Constipation, unspecified; Z71.9 Counseling, unspecified; Z79.85 Long-term (current) use of injectable non-insulin antidiabetic drugs | CPT/HCPCS: 99212 ==

== ENCOUNTER 2025-11-04 11:20 | Outpatient (REF) | payer OTHER, SELFPAY ==
--- NOTE | ~2025-11-04 | US_ITS ---
CLINICAL HISTORY: . US abdomen limited with duplex and color Doppler Comparison: CT/REG/SR - CT ABDOMEN PELVIS W IV CON - 10/28/25 03:50 EST US/SR - US ABDOMEN LIMITED - 10/19/25 11:42 EST Findings: Visualized pancreas is normal. Tail obscured by bowel gas. Liver is normal in size and mildly echogenic throughout. Right lobe length 12.6 cm. No focal hepatic masses. Common duct 4.0 mm diameter. Post cholecystectomy. Main portal vein antegrade. Right kidney measures, 9.2 cm in length. Normal cortical width and echotexture. No hydronephrosis calculus or mass. Renal cortical cysts midpole measuring 1.5 x 1.2 x 1.2 cm appears simple. Suprarenal mass on the right measures measures 3.2 x 2.3 x 2.3 cm previously measuring 2.6 x 2.4 x 1.5 cm Impression: 1. Echogenic liver reflecting hepatic steatosis or diffuse hepatocellular disease. 2. Probable benign renal cortical cyst midpole right kidney. 3. Post cholecystectomy no biliary dilatation. 4. The suprarenal mass on the right appears slightly more conspicuous on current exam. A follow-up CT or MRI adrenal protocol study is recommended. This document has been electronically signed by: Jasper Malcolm MD on 11/04/2025 12:57:50
--- OUTSIDE RECORDS SUMMARY | 2025-11-04 13:25 | XMS_ITS | Patient Health Record ---
Author Organization [facility] Address [address] [place] [address] Care Team Providers Care Middleware Systems Architect Name Role Phone Aaron Collazo MD Primary Care Provider Elbert Hanson [phone] Allergies Allergen (clinical drug ingredient) Drug/Non Drug [...] Capsule 1 tablet Orally Once a day Not-Taking/HI N metFORMIN HCl 500 MG Tablet 1 tablet wit h meals Orally three x a day Active Onglyza 5 MG Tablet 1 tablet Orally Once a day Not-Taking/HI N Metoprolol Tartrate 100 MG Tablet 1 [...] Problem Screening for malignant neoplasm of colon (851182249) Encounter for screening for malignant neoplasm of colon (Z12.11) Active confirmed Problem Screening for malignant neoplasm of rectum (607587290) Encounter for screening for malignant neoplasm of rectum (Z12.12) Active confirmed Problem Iron deficiency anemia (82851332) Iron deficiency anemia (D50.9) Active confirmed Problem Gastroesophageal reflux disease without esophagitis (265410185) Gastroesophageal reflux disease without esophagitis (K21.9) Active confirmed Problem Long-term current use of antiplatelet drug (151679243006814) Long-term use of aspirin therapy (Z79.82) Active confirmed Problem Gastritis (0608160) Gastritis (K29.70) Active c onfirmed Problem Gastroesophageal reflux disease (779434467) GERD (gastroesophageal reflux disease) (K21.9) Active confirmed Problem History of adenomatous polyp of colon (948615348) Hx of adenomatous colonic polyps (Z86.010) Active confirmed Problem Diverticulosis of colon (851332294) Diverticulosis of colon (K57.30) Active confirmed Plan Of Treatment Future Test Test Name Order Date COLONOSCOPY 03/09/2019 UPPER GI ENDOSCOPY 06/05/2022 COLONOSCOPY 06/05/2022 Insurance Providers Payer Name Payer Address Payer Phone Subscriber Number Group Number Insured Name Patient Relationship to Insured Coverage Start Date Coverage End Date MEDICARE OF [place] [address] [place] [phone] [id number] MAGDY KLEIN Self - patient is the insured MEDICAID OF [facility] [address] [place] [address] [id number] MAGDY KLEIN Self - patient is the [...]
== END 2025-11-04 11:21 | disposition home or self-care (01) ==
LOC: HO.US 11:20
PROVIDERS: PCP Internal Medicine; Visit Provider Internal Medicine
DX: R10.11 Right upper quadrant pain (principal); R79.89 Other specified abnormal findings of blood chemistry
CPT/HCPCS: 76705

== ENCOUNTER → 2025-11-04 11:24 | Outpatient (BNV) | payer OTHER, SELFPAY | PROVIDERS: PCP Internal Medicine; Visit Provider Radiology Diagnostic Radiology | DX: K76.89 Other specified diseases of liver (principal); E27.9 Disorder of adrenal gland, unspecified | CPT/HCPCS: 76705 ==